=== PATIENT | female | born 1955 | race Caucasian/White ===

== ENCOUNTER → 2016-12-07 | Outpatient (CLI) | payer BC, OTHER ==
--- NOTE | 2016-12-07 22:20 | MR ---
EXAMINATION TYPE: MR lumbar spine wo con DATE OF EXAM: 12/07/2016 COMPARISON: NONE HISTORY: spondylolithesis lsp CONTRAST: 0 mL intravenous MultiHance. TECHNIQUE: Multiplanar, multisequence images of the lumbar spine were acquired. FINDINGS: There is diffuse disc desiccation throughout the lumbar spine. L5-S1: No significant disc bulge or disc herniation. No spinal canal stenosis. No foraminal stenosi s. L4-L5: No significant disc bulge or disc herniation. No spinal canal stenosis. No foraminal stenosi s. Previous annular tear signal is not identified within the posterior disc space... L3-L4: Minimal disc bulge with anterior thecal sac contact is present. No AP spinal canal stenosis pr esent. L2-L3: No significant disc bulge or disc herniation. No spinal canal stenosis. No foraminal stenosi s. . L1-L2: No significant disc bulge or disc herniation. No spinal canal stenosis. No foraminal stenosi s. . T12-L1: No significant disc bulge or disc herniation. No spinal canal stenosis. No foraminal stenos is. . IMPRESSION: 1. Very minimal disc bulge may remain present at L3-4. 2. Previous findings suggestive for an annular tear L4-5 are not evident on the current study. 3. The disc bulging at L3-4 is diminished over the interval.
== END | disposition home or self-care (01) ==
LOC: RADMRIMAIN 12:19
PROVIDERS: ATTEND Nurse Practitioner
DX: M51.26 Other intervertebral disc displacement, lumbar region (principal)
CPT/HCPCS: 72148

== ENCOUNTER → 2017-08-20 | Outpatient (CLI) | payer BC ==
--- NOTE | 2017-08-20 15:34 | US ---
EXAMINATION TYPE: US venous doppler duplex LE BI DATE OF EXAM: 08/20/2017 3:24 PM COMPARISON: NONE CLINICAL HISTORY: Edema R60, Dizziness R42. SIDE PERFORMED: Bilateral TECHNIQUE: The lower extremity deep venous system is examined utilizing real time linear array sonog eveline with graded compression, doppler sonography and color-flow sonography. VESSELS IMAGED: External Iliac Vein (EIV) Common Femoral Vein Deep Femoral Vein Greater Saphenous Vein * Femoral Vein Popliteal Vein Small Saphenous Vein * Proximal Calf Veins (* superficial vessels) large complex fluid collection left pop fossa measures 7.5 x 1.9 x 3.6 cm. Grayscale, color doppler, spectral doppler imaging performed of the deep veins of the lower extremiti es. There is normal flow, compressibility, vascular waveforms. Right Leg: Negative for DVT Left Leg: Negative for DVT IMPRESSION: No evidence for DVT.
--- NOTE | 2017-08-20 15:44 | US ---
EXAMINATION TYPE: US carotid duplex BILAT DATE OF EXAM: 08/20/2017 COMPARISON: US 2010 CLINICAL HISTORY: Edema R60, Dizziness R42. EXAM MEASUREMENTS: RIGHT: Peak Systolic Velocity (PSV) cm/sec ----- Right CCA: 55.5 ----- Right ICA: 54.5 ----- Right ECA: 77.2 ICA/CCA ratio: 1.0 RIGHT: End Diastole cm/sec ----- Right CCA: 21.4 ----- Right ICA: 23.3 ----- Right ECA: 13.8 LEFT: Peak Systolic Velocity (PSV) cm/sec ----- Left CCA: 60.2 ----- Left ICA: 96.8 ----- Left ECA: 123.0 ICA/CCA ratio: 1.6 LEFT: End Diastole cm/sec ----- Left CCA: 21.4 ----- Left ICA: 43.7 ----- Left ECA: 22.3 VERTEBRALS (direction of flow): Right Vertebral: Antegrade Left Vertebral: Antegrade Rhythm: Normal IMPRESSION: No significant stenosis seen, mild bilateral plaque. Criteria for Assigning % of Stenosis / Diameter reduction (Estimation based on the indirect measurements of the internal carotid artery velocities (ICA PSV). 1. Normal (no stenosis)=ICA PSV < 125 cm/s: ratio < 2.0: ICA EDV<40 cm/s. 2. Less than 50% stenosis=ICA PSV < 125 cm/s: ratio < 2.0: ICA EDV<40 cm/s. 3. 50 to 69% stenosis=ICA PSV of 125 to 230 cm/s: ration 2.0 ? 4.0: ICA EDV 40-100 cm/s. 4. Greater than 70% stenosis to near occlusion= ICA PSV > 230 cm/s: ratio > 4.0: ICA EDV > 100 cm/s. 5. Near occlusion= ICA PSV velocities may be low or undetectable: variable ratio and ICA EDV. 6. Total occlusion=unable to detect flow.
== END | disposition home or self-care (01) ==
LOC: RADUSWWP 14:23
PROVIDERS: ATTEND Family Medicine
DX: R60.0 Localized edema (principal); R42 Dizziness and giddiness
CPT/HCPCS: 93880; 93970

== ENCOUNTER → 2017-12-08 | Outpatient (CLI) | payer BC ==
--- NOTE | 2017-12-09 08:02 | MR ---
EXAMINATION TYPE: MR knee LT wo con DATE OF EXAM: 12/08/2017 COMPARISON: NONE HISTORY: Pain and swelling for 5 months. cyst behind knee TECHNIQUE: Multiplanar, multisequence images of the knee is performed without IV contrast. FINDINGS: MEDIAL MENISCUS: Anterior horn is intact without tear. Posterior horn as lobulated increased signal p articularly superior aspect with fraying and irregularity along superior articular surface consistent with full-thickness tear. Medial extrusion of meniscus noted on coronal images. LATERAL MENISCUS: Anterior and posterior horns are intact without tear. Some lateral uncovering is se en or lateral shifting of tibia relative to distal femur on coronal images. CRUCIATE LIGAMENTS: The anterior and posterior cruciate ligaments are intact. Increased signal diffus sergey throughout anterior cruciate ligament is present. COLLATERAL LIGAMENTS: The medial collateral ligament and lateral collateral ligament complex are inta ct. Moderate fluid signal surrounds medial collateral ligament.. EXTENSOR MECHANISM: Visualized quadriceps and patellar tendons are intact. EFFUSION: There is a large suprapatellar joint effusion. POPLITEAL CYST: There is a moderate size popliteal/joshi cyst with septations some thickened and surr ounding fluid measuring 5.1 cm long axis sagittal image 19. TRICOMPARTMENT SPACES: Moderate to advanced joint space loss medial tibiofemoral compartment is seen with mild spurring. There is mild to moderate joint space loss lateral tibiofemoral compartment. Ther e is moderate to advanced joint space loss patellofemoral compartment with minimal spurring. CARTILAGE: There is chondromalacia patella with thinning of articular cartilage inferiorly along the posterior patellar pole. No full-thickness loss is seen. There is marked thinning of articular cartil age medial tibiofemoral femoral compartment with full-thickness loss identified. BONE MARROW SIGNAL: Some heterogeneous increased T2 signal medial tibiofemoral compartment for refere nce distal femoral level axial images 15 and 16 is noted. Some erosive endplate changes are noted. OTHER: Increased fluid signal superficial anterior infrapatellar level is noted. . IMPRESSION: 1. Full-thickness tear posterior horn of medial meniscus. 2. Background moderate to advanced osteoarthritic changes most prominent patellofemoral and even grea ter degree medial tibiofemoral compartments where there is full-thickness cartilaginous loss is suspe cted reactive osseous edema. 3. Moderate MCL sprain injury. 4. Large suprapatellar joint effusion. 5. Moderate-sized leaking popliteal cyst. 6. Myxoid degeneration ACL.
== END | disposition home or self-care (01) ==
LOC: RADMRIMAIN 16:48
PROVIDERS: ATTEND Family Medicine
DX: S83.242A Other tear of medial meniscus, current injury, left knee, initial encounter (principal); M17.12 Unilateral primary osteoarthritis, left knee; S83.412A Sprain of medial collateral ligament of left knee, initial encounter; M71.22 Synovial cyst of popliteal space [Baker], left knee

== ENCOUNTER 2018-01-28 08:24 | Day surgery (SDC) | payer BC ==
[2018-01-24 11:26] VITALS: BMI 37.8
--- NOTE | 2018-01-27 10:26 | HP ---
HISTORY AND PHYSICAL CHIEF COMPLAINT: Left knee pain. HISTORY OF PRESENT ILLNESS: The patient is a 62-year-old female on disability, who presents with progressive left knee pain for the past 6 months. She notes anterior and medial pain along with swelling and giving way. She has been taking pain medications for this. She does use a wheeled walker and intermittently a cane. She notes it frequently gives out. PAST MEDICAL HISTORY: Significant for depression and anxiety disorder along with fibromyalgia, hypertension, and migraines. PAST SURGICAL HISTORY: Significant for hernia repair and hysterectomy. CURRENT MEDICATIONS: 1. Cymbalta. 2. Klonopin. 3. Lasix. 4. OxyContin. 5. Lipitor. 6. Percocet. 7. Remeron. ALLERGIES: She denies drug allergies. FAMILY HISTORY: Significant for heart disease and cancer. SOCIAL HISTORY: Significant for 1 pack per day tobacco use. REVIEW OF SYSTEMS: Sixteen-point review of systems otherwise reviewed and is noncontributory. PHYSICAL EXAMINATION: On examination, the patient is approximately 5 feet 4 inches, 226 pounds of endomorphic habitus. HEENT exam is nonfocal. Neck is supple. She has painless passive motion of her left hip. Straight leg raise is negative. Active motion left knee -10 to 80 degrees of flexion. She has a moderate effusion. She is tender about the medial joint line. Collaterals are stable, Tadeo's negative, Sarah's elicits medial pain. She has genu varum alignment. Her distal neurovascular exam appears intact in the left lower extremity. MRI report left knee 12/08/2017 shows a posterior medial meniscal tear along with a large effusion and a large Brown's cyst. IMPRESSION: 1. Left knee internal derangement with symptomatic medial meniscal tear. 2. Left knee moderate medial and patellofemoral compartment osteoarthrosis. 3. Increased body mass index. 4. History of fibromyalgia. RECOMMENDATIONS: I talked to the patient at length regarding her condition and treatment options. At this point, she is quite symptomatic, having pain and mechanical symptoms despite conservative measures. After thorough discussion, she opts to proceed with surgery. We will plan to proceed with arthroscopic evaluation with probable partial medial meniscectomy. Risks and benefits were discussed at length in layman's terms. We will likely perform that as an outpatient procedure. MMODL / IJN: [id number] /
[~2018-01-28 08:24] MED LIST: DEXAMETHASONE SOD PHOSPHATE 10 MG/ML 1 ML VIAL IV ONE; LACTATED RINGERS 1,000 ML IV SCH; LIDOCAINE 1% 20 ML VIAL (10MG/ML) FOR IV START INTRADERMA PRN; ONDANSETRON 4 MG/2 ML VIAL IVP PRN; SCOPOLAMINE 1.5MG/72HR PATCH TRANSDERM ONE; ceFAZolin IN SWFI 2 GM/20 ML SYRINGE IVP ONE
[2018-01-28] MEDS ORDERED: MIDAZOLAM 2 MG/2 ML VIAL IVP ONE (09:23)
[2018-01-28] MEDS ORDERED: NALOXONE 0.4 MG/ML 1 ML VIAL ONE (10:00)
[2018-01-28] MEDS ORDERED: PROPOFOL 10 MG/ML 20 ML VIAL IV ONE (10:00)
[2018-01-28] MEDS ORDERED: fentaNYL (PF) 50 MCG/ML 2 ML AMP ONE (10:00)
[2018-01-28] MEDS ORDERED: MIDAZOLAM 2 MG/2 ML VIAL ONE (10:00)
[2018-01-28] MEDS ORDERED: SUCCINYLCHOLINE CHLORIDE 100 MG/5 ML SYR IV ONE (10:00)
[2018-01-28] MEDS ORDERED: LIDOCAINE 1% INJ 10MG/ML (20 ML MDV) ONE (10:00)
[2018-01-28] MEDS ORDERED: KETAMINE 10 MG/ML 20 ML VIAL ONE (10:00)
--- NOTE | 2018-01-28 11:01 | P.OP ---
Date of Procedure: 01/28/18 Preoperative Diagnosis: Left knee internal derangement Postoperative Diagnosis: Left knee middle and posterior medial meniscal tear/middle one third lateral meniscal tear/reactive synovitis of the medial, lateral, and patellofemoral compartments/grade 23 chondral injury distal lateral femoral condyle Procedure(s) Performed: Left knee arthroscopic partial medial meniscectomy/partial lateral meniscectomy/ partial synovectomy of the medial, lateral, and patellofemoral compartments/ lateral femoral chondrectomy Anesthesia: GETA Surgeon: Casey Parikh Estimated Blood Loss (ml): 10 Pathology: none sent Condition: stable Disposition: PACU Indications for Procedure: The patient is a 62-year-old female who presents with progressive left knee pain and mechanical symptoms despite conservative measures. A discussion of the risks and benefits of operative intervention versus continued conservative measures was made with the patient. She opted to proceed with surgery. Operative risks to include infection, neurovascular injury, development of blood clots, possible incomplete resolution of symptoms, possible worsening of symptoms and need for subsequent procedures was discussed. Informed consent was obtained. Operative Findings: As below Description of Procedure: The patient was brought to the operating room, and after induction of general anesthesia, I examined the left knee. Collaterals were stable, Tadeo was negative, and posterior drawer was negative. The left lower extremity was prepped and draped in normal fashion. A superior lateral portal was made through a 3 mm skin incision superior and lateral to the patella. This was used for outflow. A lateral portal was made through a 5 mm vertical skin incision lateral to the patella tendon above the joint. Diagnostic arthroscopy was performed. A medial portal was made through a similar incision medial to the patellar tendon above the joint. On inspection of the medial compartment, she was noted to have a complex tear involving the middle to posterior one third of the medial meniscus in the white-red junction. This was debrided back to stable base with a motorized shaver and straight baskets. The edges were contoured. Grade 2-3 chondral changes noted diffusely in the medial compartment. Reactive synovitis involving anterior medial, anterolateral, patellofemoral compartments was debrided with a motorized shaver. On inspection of the notch, the anterior cruciate ligament appeared to be intact. On inspection the lateral compartment, a horizontal tear involving the middle one third of the lateral meniscus in the white-white junction. This was debrided back to stable base with straight baskets and a motorized shaver. A grade 2 chondral injury was noted involving the central distal portion of the femoral femoral condyle. There was a loose chondral flap debrided back to stable base with a motorized shaver. On inspection of the patellofemoral articulation, there is mild degenerative changes however no loose cartilage fragments. The gutters were clear debris. The knee was then thoroughly irrigated. The portals were closed with Steri-Strips. A sterile dressing was applied in addition to a compression stocking. Patient was awoken from general anesthesia and transferred to recovery room in good condition. Blood loss was estimated at 10 mL. No complications were incurred.
[2018-01-28 11:24] VITALS: TEMP 97
[2018-01-28] MEDS: HYDROmorphone 0.5 MG/0.5 ML SYRINGE IVP PRN ×4 (11:28→11:43)
[2018-01-28] MEDS ORDERED: oxyCODONE ER 20 MG TAB.ER.12H PO STA (12:23)
[2018-01-28 13:27] VITALS: BP 179/84; PULSE 80; RESP 17
== END 2018-01-28 13:36 | disposition home or self-care (01) ==
LOC: OR 08:24
PROVIDERS: ATTEND Orthopaedic Surgery
DX: M23.322 Other meniscus derangements, posterior horn of medial meniscus, left knee (principal); M23.301 Other meniscus derangements, unspecified lateral meniscus, left knee; M65.862 Other synovitis and tenosynovitis, left lower leg; F32.9 Major depressive disorder, single episode, unspecified; F41.9 Anxiety disorder, unspecified; M79.7 Fibromyalgia; I10 Essential (primary) hypertension; G43.909 Migraine, unspecified, not intractable, without status migrainosus; Z79.899 Other long term (current) drug therapy; Z86.73 Personal history of transient ischemic attack (TIA), and cerebral infarction without residual deficits; F17.210 Nicotine dependence, cigarettes, uncomplicated; M17.12 Unilateral primary osteoarthritis, left knee; Z90.710 Acquired absence of both cervix and uterus
CPT/HCPCS: 29880; J2250; J1100; J2310; J2405; J2001; J3010; J0330; J2704; J1170; J0690

== ENCOUNTER 2019-05-21 15:40 | Emergency (ER) | payer BC ==
[2019-05-21] MEDS ORDERED: NITROGLYCERIN SL TABS 0.4 MG TAB SUBLINGUAL STA (15:53)
[2019-05-21] MEDS ORDERED: HYDROmorphone 1 MG/ML 1 ML SYRINGE IVP STA (15:57)
[2019-05-21 15:58] VITALS: PULSE 105; RESP 18; TEMP 98.2
--- NOTE | 2019-05-21 16:01 | ED ---
Chest Pain HPI - General Chief Complaint: Chest Pain Stated Complaint: Chest Pressure Time Seen by Provider: 05/21/19 15:40 Source: patient, EMS, RN notes reviewed Mode of arrival: EMS Limitations: no limitations - History of Present Illness Initial Comments: This is a 63-year-old female history chronic pain syndrome who also is a smoker with COPD also history of fibromyalgia who presents with complaints of chest pain and hypertension. She was brought in by EMS because the pain midsternal and left-sided pressure-like moderate in severity. She believes part of this is secondary to withdrawal from her opiates. She is normally on OxyContin 40 mg 3 times a day with Percocet 10 mg 3 times a day for breakthrough she has not had her prescription she did take a fentanyl patch to was apparently that she had obtained it did not help. She's noted be hypertensive per paramedics. She's had nausea diarrhea agitation she states. MD Complaint: chest pain - Related Data Home Medications Medication Instructions Recorded Confirmed DULoxetine HCL [Cymbalta] 120 mg PO DAILY 01/15/15 01/28/18 Furosemide [Lasix] 40 mg PO DAILY PRN 01/15/15 01/28/18 Mirtazapine [Remeron] 45 mg PO HS 01/15/15 01/28/18 Atorvastatin [Lipitor] 10 mg PO DAILY 01/24/18 01/28/18 clonazePAM [KlonoPIN] 1 mg PO TID 01/24/18 01/28/18 oxyCODONE HCL [OxyCONTIN] 40 mg PO TID 01/24/18 01/28/18 oxyCODONE-APAP 10-325MG [Percocet 1 tab PO BID 01/24/18 01/28/18 10-325 mg] Allergies Allergy/AdvReac Type Severity Reaction Status Date / Time No Known Allergies Allergy Verified 05/21/19 15:49 Review of Systems ROS Statement: Those systems with pertinent positive or pertinent negative responses have been documented in the HPI. ROS Other: All systems not noted in ROS Statement are negative. EKG Findings - EKG Results: EKG: interpreted by SEBASTIAN, sinus rhythm (Sinus rhythm rate of 98. Interval 184 QRS duration 104 QT since QTC 386/[address] configuration prolonged QT noted.) Past Medical History Past Medical History: CVA/TIA, Fibromyalgia, Hyperlipidemia, Hypertension, Memory Impairment, Osteoarthritis (OA) Additional Past Medical History / Comment(s): chronic neck and back pain, ddd, ARTHRITIS, USES CANE NEEDED FOR FIBROMYALGIA History of Any Multi-Drug Resistant Organisms: None Reported Past Surgical History: Hernia Repair, Hysterectomy Additional Past Surgical History / Comment(s): cervical fusion, Past Anesthesia/Blood Transfusion Reactions: No Reported Reaction Past Psychological History: Anxiety, Depression, Panic Disorder Smoking Status: Current every day smoker Past Alcohol Use History: None Reported Past Drug Use History: None Reported - Past Family History Mother Family Medical History: Cancer General Exam - General Exam Comments Initial Comments: This is a well-developed well-nourished awake alert oriented 3 female Limitations: no limitations General appearance: alert, anxious Head exam: Present: atraumatic, normocephalic, normal inspection Eye exam: Present: normal appearance, PERRL, EOMI. Absent: scleral icterus, conjunctival injection, periorbital swelling ENT exam: Present: normal exam, mucous membranes moist Neck exam: Present: normal inspection, full ROM, other. Absent: tenderness, meningismus, lymphadenopathy Respiratory exam: Present: normal lung sounds bilaterally, chest wall tenderness (Tenderness palpation in the is equivocal as far as reproducible). Absent: respiratory distress, wheezes, rales, rhonchi, stridor Cardiovascular Exam: Present: normal rhythm, tachycardia, normal heart sounds. Absent: systolic murmur, diastolic murmur, rubs, gallop, clicks GI/Abdominal exam: Present: soft, normal bowel sounds. Absent: distended, tenderness, guarding, rebound, rigid Extremities exam: Present: normal inspection, full ROM, normal capillary refill. Absent: tenderness, pedal edema, joint swelling, calf tenderness Back exam: Present: normal inspection Neurological exam: Present: alert, oriented X3, CN II-XII intact Psychiatric exam: Present: normal affect, normal mood Skin exam: Present: warm, dry, intact, normal color. Absent: rash Course Vital Signs 05/21/19 05/21/19 15:49 16:31 Temperature 98.2 F Pulse Rate 105 H Respiratory 18 Rate Blood Pressure 198/142 204/142 O2 Sat by Pulse 99 Oximetry Chest Pain MDM - MDM Did review the imaging and report no acute findings. I did have one discussed with the patient the presentation is noncardiac in is secondary to muscle scalp pain and withdrawal from her narcotics. She will get a additional shot of medication she is a follow-up tomorrow she may be able get her medications tomorrow. She is in agreement with this Disposition Clinical Impression: Chest wall syndrome, Narcotic withdrawal, Chronic pain syndrome Disposition: HOME SELF-CARE Condition: Good Instructions (If sedation given, give patient instructions): Chest Wall Pain (ED) Is patient prescribed a controlled substance at d/c from ED?: No Referrals: Nonstaff,Physician [REFERRING] - 1-2 days
[2019-05-21 16:32] VITALS: BP 204/142
[2019-05-21 16:37] LABS: Basophils # (A) 0.1 k/uL (0-0.2); Basophils % (A) 1 %; Eosinophils # (A) 0.1 k/uL (0-0.7); Eosinophils % (A) 1 %; HCT 49.7 % (34.0-46.0); HGB 16.2 gm/dL (11.4-16.0); Lymphocytes # (A) 1.6 k/uL (1.0-4.8); Lymphocytes % (A) 17 %; MCH 29.3 pg (25.0-35.0); MCHC 32.6 g/dL (31.0-37.0); MCV 89.8 fL (80.0-100.0); Mean Platelet Volume 9.1; Monocytes # (A) 0.5 k/uL (0-1.0); Monocytes % (A) 5 %; Neutrophils # (A) 7.1 k/uL (1.3-7.7); Neutrophils % (A) 75 %; Platelet Count 276 k/uL (150-450); RBC 5.54 m/uL (3.80-5.40); RDW 13.5 % (11.5-15.5); WBC 9.5 k/uL (3.8-10.6)
[2019-05-21 16:44] LABS: ALT 21 U/L (4-34); AST 33 U/L (14-36); African American GFR (CKD) >90 (>60 ml/min/1.73 sqM); Albumin 4.1 g/dL (3.5-5.0); Alkaline Phosphatase 151 U/L (38-126); Anion Gap 7 mmol/L; Blood Urea Nitrogen 12 mg/dL (7-17); Calcium 9.3 mg/dL (8.4-10.2); Carbon Dioxide 24 mmol/L (22-30); Chloride 108 mmol/L (98-107); Glucose 104 mg/dL (74-99); Magnesium 2.1 mg/dL (1.6-2.3); Non-African American GFR(CKD) >90 (>60 ml/min/1.73 sqM); Sodium 139 mmol/L (137-145); Total Bilirubin 0.9 mg/dL (0.2-1.3); Total Protein 7.3 g/dL (6.3-8.2)
[2019-05-21 16:45] LABS: Potassium 4.9 mmol/L (3.5-5.1)
--- NOTE | 2019-05-21 16:47 | XR ---
EXAMINATION TYPE: XR chest 2V DATE OF EXAM: 05/21/2019 COMPARISON: 06/20/2012 HISTORY: Chest pain and dizziness TECHNIQUE: Frontal and lateral views of the chest are obtained. FINDINGS: There is no focal air space opacity, pleural effusion, or pneumothorax seen. Chronic inte rstitial prominence is unchanged. The cardiac silhouette size is mildly enlarged. The osseous struc tures are intact. Minimal degenerative change of the spine. Mild diffuse osseous demineralization. Ol d fracture deformity of the right lateral mid ribs. IMPRESSION: No acute cardiopulmonary process.
[2019-05-21 16:57] LABS: Partial Thromboplastin Time 22.6 sec (22.0-30.0)
[2019-05-21] MEDS ORDERED: HYDROmorphone 1 MG/ML 1 ML SYRINGE IM STA (17:24)
== END 2019-05-21 18:09 | disposition home or self-care (01) ==
LOC: EC 15:40
DX: F11.23 Opioid dependence with withdrawal (principal); G89.4 Chronic pain syndrome; R07.1 Chest pain on breathing; R00.0 Tachycardia, unspecified; M79.7 Fibromyalgia; E78.5 Hyperlipidemia, unspecified; I10 Essential (primary) hypertension; M19.90 Unspecified osteoarthritis, unspecified site; F32.9 Major depressive disorder, single episode, unspecified; F41.9 Anxiety disorder, unspecified; F17.200 Nicotine dependence, unspecified, uncomplicated; Z79.899 Other long term (current) drug therapy; Z98.1 Arthrodesis status
CPT/HCPCS: 36415; 93005; 83880; 80053; 83690; 83735; 84484; 85025; 85610; 85730; 71046; 99285; 96374; 96372; J1170

== ENCOUNTER → 2019-06-27 | Outpatient (CLI) | payer BC ==
--- NOTE | 2019-06-27 10:01 | US ---
EXAMINATION TYPE: US carotid duplex BILAT DATE OF EXAM: 06/27/2019 COMPARISON: US 08/20/2017 CLINICAL HISTORY: R94.31 abn EKG, Chest pain R07.9, R42 dizziness. Smoker x 47 years, prior TIA EXAM MEASUREMENTS: RIGHT: Peak Systolic Velocity (PSV) cm/sec ----- Right CCA: 67.7 ----- Right ICA: 68.7 ----- Right ECA: 101.8 ICA/CCA ratio: 1.0 RIGHT: End Diastole cm/sec ----- Right CCA: 23.5 ----- Right ICA: 34.6 ----- Right ECA: 12.1 LEFT: Peak Systolic Velocity (PSV) cm/sec ----- Left CCA: 74.4 ----- Left ICA: 104.7 ----- Left ECA: 117.0 ICA/CCA ratio: 1.4 LEFT: End Diastole cm/sec ----- Left CCA: 21.3 ----- Left ICA: 44.1 ----- Left ECA: 28.5 VERTEBRALS (direction of flow): Right Vertebral: Antegrade Left Vertebral: Antegrade and dominant vertebral artery Rhythm: Normal Mild intimal wall changes are noted at bilateral carotid bifurcation, and PSV is wnl bilaterally. Incidental finding of bilateral thyroid nodules is noted. Grayscale, color Doppler, spectral Doppler imaging performed of the carotid arteries. Waveform analys is does not show significant stenosis of the internal carotid arteries. IMPRESSION: No hemodynamic significant stenosis of the proximal internal carotid arteries by Doppler criteria, an indirect measurement of carotid stenosis
== END | disposition home or self-care (01) ==
LOC: RADUSMAIN 07:34
PROVIDERS: ATTEND Family Medicine
DX: R07.89 Other chest pain (principal)
CPT/HCPCS: 93880

== ENCOUNTER → 2019-10-17 | Outpatient (CLI) | payer BC ==
--- NOTE | 2019-10-18 15:31 | ECHOF ---
Referral Reason:Edema R60.0 MEASUREMENTS -------- HEIGHT: 162.6 cm WEIGHT: 97.5 kg BP: RVIDd: 3.7 cm (< 3.3) IVSd: 1.7 cm (0.6 - 1.1) LVIDd: 4.6 cm (3.9 - 5.3) LVPWd: 1.5 cm (0.6 - 1.1) IVSs: 1.7 cm LVIDs: 4.3 cm LVPWs: 1.6 cm LA Diam: 4.1 cm (2.7 - 3.8) Ao Diam: 3.4 cm (2.0 - 3.7) AV Cusp: 2.0 cm (1.5 - 2.6) LA Diam: 4.5 cm (2.7 - 3.8) MV EXCURSION: 12.148 mm (> 18.000) MV EF SLOPE: 49 mm/s (70 - 150) EPSS: 0.2 cm MV E Duane: 0.80 m/s MV DecT: 119 ms MV A Duane: 1.08 m/s MV E/A Ratio: 0.74 RAP: 5.00 mmHg RVSP: 11.33 mmHg FINDINGS -------- Sinus rhythm. This was a technically adequate study. The left ventricular size is normal. Overall left ventricular systolic function is normal with, an EF between 55 - 60 %. Moderate asymmetric septal hypertrophy with septal thickness 1.6 - 1.9 cm. The right ventricle is normal in size. The left atrium is mildly dilated. The right atrial size is normal. The aortic valve is trileaflet, and appears structurally normal. No aortic stenosis or regurgitation. Mild mitral regurgitation is present. Mild tricuspid regurgitation present. Right ventricular systolic pressure is normal at < 35 mmHg. The pulmonic valve was not well visualized. The aortic root size is normal. There is no pericardial effusion. CONCLUSIONS -------- 1. Sinus rhythm. 2. This was a technically adequate study. 3. The left ventricular size is normal. 4. Overall left ventricular systolic function is normal with, an EF between 55 - 60 %. 5. Moderate asymmetric septal hypertrophy with septal thickness 1.6 - 1.9 cm. 6. The right ventricle is normal in size. 7. The left atrium is mildly dilated. 8. The right atrial size is normal. 9. The aortic valve is trileaflet, and appears structurally normal. No aortic stenosis or regurgitati on. 10. Mild mitral regurgitation is present. 11. Mild tricuspid regurgitation present. 12. Right ventricular systolic pressure is normal at < 35 mmHg. 13. The pulmonic valve was not well visualized. 14. The aortic root size is normal. 15. There is no pericardial effusion. ENGINEER SYSTEMS: Riya Chin RDCS
== END | disposition home or self-care (01) ==
LOC: MERGE 15:00 → RADECHMAIN 15:16
PROVIDERS: ATTEND Family Medicine
DX: I08.1 Rheumatic disorders of both mitral and tricuspid valves (principal)
CPT/HCPCS: 93306

== ENCOUNTER 2023-01-28 14:11 | Inpatient (IN) | payer MEDICARE, OTHER ==
--- NOTE | 2023-01-28 15:36 | ED ---
General Adult HPI - General Chief complaint: Weakness Stated complaint: alter mental status Time Seen by Provider: 01/28/23 15:06 Source: patient, family, EMS, RN notes reviewed Mode of arrival: EMS Limitations: no limitations - History of Present Illness Initial comments: Patient is a pleasant 67-year-old female presenting to the emergency department with drowsiness. Onset of symptoms was last night. Patient slipped in the morning. did try to get patient up around noon however patient was unable to bear her own weight. Patient has been very sleepy, a little bit confused. Patient cannot offer specific complaints. states patient does have history of similar symptoms previously once associated with congestive heart failure. Patient has been becoming more edematous the last few days. - Related Data Home Medications Medication Instructions Recorded Confirmed DULoxetine HCL [Cymbalta] 120 mg PO DAILY 01/15/15 01/28/23 Mirtazapine [Remeron] 45 mg PO HS 01/15/15 01/28/23 clonazePAM [KlonoPIN] 1 mg PO BID 01/24/18 01/28/23 oxyCODONE-APAP 10-325MG [Percocet 1 tab PO BID 01/24/18 01/28/23 10-325 mg] Amiodarone [Cordarone] 200 mg PO DAILY 01/28/23 01/28/23 Apixaban [Eliquis] 5 mg PO BID 01/28/23 01/28/23 Cyclobenzaprine [Flexeril] 5 mg PO BID PRN 01/28/23 01/28/23 Famotidine [Pepcid] 20 mg PO BID 01/28/23 01/28/23 Metoprolol Succinate (ER) [Toprol 50 mg PO DAILY 01/28/23 01/28/23 Xl] Morphine Sulfate ER [Ms Contin] 30 mg PO Q12HR 01/28/23 01/28/23 Potassium Chloride ER [K-Dur 20] 20 meq PO DAILY 01/28/23 01/28/23 Spironolactone [Aldactone] 25 mg PO DAILY 01/28/23 01/28/23 Suvorexant [Belsomra] 20 mg PO HS 01/28/23 01/28/23 Torsemide [Demadex] 40 mg PO BID 01/28/23 01/28/23 dilTIAZem HCL [dilTIAZem HCL 24Hr 120 mg PO DAILY 01/28/23 01/28/23 ER (Xr)] Allergies Allergy/AdvReac Type Severity Reaction Status Date / Time No Known Allergies Allergy Verified 01/28/23 14:43 Review of Systems ROS Statement: Those systems with pertinent positive or pertinent negative responses have been documented in the HPI. ROS Other: All systems not noted in ROS Statement are negative. Constitutional: Denies: fever Eyes: Denies: eye pain ENT: Denies: ear pain Respiratory: Reports: as per HPI, dyspnea Cardiovascular: Denies: chest pain Endocrine: Reports: fatigue Neurological: Reports: as per HPI. Denies: headache Past Medical History Past Medical History: CVA/TIA, Fibromyalgia, Hyperlipidemia, Hypertension, Memory Impairment, Osteoarthritis (OA) Additional Past Medical History / Comment(s): chronic neck and back pain, ddd, ARTHRITIS, USES CANE NEEDED FOR FIBROMYALGIA History of Any Multi-Drug Resistant Organisms: None Reported Past Surgical History: Hernia Repair, Hysterectomy Additional Past Surgical History / Comment(s): cervical fusion, Past Anesthesia/Blood Transfusion Reactions: No Reported Reaction Past Psychological History: Anxiety, Depression, Panic Disorder Smoking Status: Current every day smoker Past Alcohol Use History: None Reported Past Drug Use History: None Reported - Past Family History Mother Family Medical History: Cancer General Exam Limitations: no limitations General appearance: lethargic Head exam: Present: atraumatic Eye exam: Present: normal appearance, PERRL, EOMI ENT exam: Present: normal oropharynx Neck exam: Present: normal inspection. Absent: meningismus Respiratory exam: Present: normal lung sounds bilaterally Cardiovascular Exam: Present: regular rate GI/Abdominal exam: Present: soft. Absent: tenderness Extremities exam: Present: pedal edema. Absent: calf tenderness Neurological exam: Present: CN II-XII intact, other (Drowsy but arousable to voice.). Absent: motor sensory deficit Expanded Cranial nerves: EOM's Intact: Normal Motor strength exam: RUE: 5, LUE: 5, RLE: 5, LLE: 5 Eye Response: (3) open to voice Motor Response: (6) obeys commands Verbal Response: (4) confused conversation Psychiatric exam: Present: flat affect Skin exam: Present: normal color Course Vital Signs 01/28/23 01/28/23 01/28/23 14:17 16:07 16:29 Temperature 97.8 F Pulse Rate 104 H Respiratory 18 Rate Blood Pressure 108/91 O2 Sat by Pulse 91 L 89 L Oximetry Fraction of 28 Inspired Oxygen (FIO2) 01/28/23 01/28/23 01/28/23 16:30 17:19 17:34 Temperature Pulse Rate 82 Respiratory 24 Rate Blood Pressure O2 Sat by Pulse 90 L Oximetry Fraction of 28 32 Inspired Oxygen (FIO2) EKG Findings - EKG Results: EKG: interpreted by ERMD (Right axis. Right bundle branch block. Inferior T wave inversion.) EKG shows: atrial fibrillation Procedures - ABG Interpretation Ph: 7.11 PCO2: 84.9 PO2: 55 Bicarbonate: 27 Interpretation: respiratory acidosis Medical Decision Making - Medical Decision Making Was pt. sent in by a medical professional or institution (, PA, SURGICAL APPLIANCES SALESPERSON, urgent care, hospital, or fci...) When possible be specific @ -No Did you speak to anyone other than the patient for history (EMS, parent, family, police, friend...)? What history was obtained from this source @ - is present and provides history as patient is a poor historian Did you review nursing and triage notes (agree or disagree)? Why? @ -I reviewed and agree with nursing and triage notes Were old charts reviewed (outside hosp., previous admission, EMS record, old EKG, old radiological studies, urgent care reports/EKG's, fci records)? Report findings @ -No old charts were reviewed Differential Diagnosis (chest pain, altered mental status, abdominal pain women, abdominal pain men, vaginal bleeding, weakness, fever, dyspnea, syncope, headache, dizziness, GI bleed, back pain, seizure, CVA, palpatations, mental health, musculoskeletal)? @ -Differential Altered Mental Status: Hypoglycemia, DKA, hypercapnia, ETOH, overdose, CO poisoning, trauma, myxedema coma, HTN encephalopathy, infection, encephalitis, psychosis, intercranial hemorrhage, hepatic encephalopathy, meningitis, CVA, this is not meant to be an all-inclusive list EKG interpreted by me (3pts min.). @ -As above X-rays interpreted by me (1pt min.). @ -Chest x-ray shows cardiomegaly CT interpreted by me (1pt min.). @ -Report reviewed U/S interpreted by me (1pt. min.). @ -None done What testing was considered but not performed or refused? (CT, X-rays, U/S, labs)? Why? @ -None What meds were considered but not given or refused? Why? @ -None Did you discuss the management of the patient with other professionals (professionals i.e. , PA, SURGICAL APPLIANCES SALESPERSON, lab, RT, psych nurse, social work supervisor, clothing busheler, teacher, adult probation officer, assistant case manager)? Give summary @ -Case was discussed with Dr. Tovar, who will admit covering Dr. Garvey Was smoking cessation discussed for >3mins.? @ -No Was critical care preformed (if so, how long)? @ -35 minutes critical care time Were there social determinants of health that impacted care today? How? (Homelessness, low income, unemployed, alcoholism, drug addiction, transportation, low edu. Level, literacy, decrease access to med. care, [facility], rehab)? @ -No Was there de-escalation of care discussed even if they declined (Discuss DNR or withdrawal of care, Hospice)? DNR status @ -No What co-morbidities impacted this encounter? (DM, HTN, Smoking, COPD, CAD, Can cer, CVA, ARF, Chemo, Hep., AIDS, mental health diagnosis, sleep apnea, morbid obesity)? @ -None Was patient admitted / discharged? Hospital course, mention meds given and route, prescriptions, significant lab abnormalities, going to OR and other pertinent info. @ -Patient had BiPAP placed with significant improvement. Patient is now alert and speaking 5-6 word sentences. Patient is updated on results. Patient will be admitted with consults for pulmonary as well as cardiology and nephrology. Patient will also benefit from echo. Admission orders written. Undiagnosed new problem with uncertain prognosis? @ -No Drug Therapy requiring intensive monitoring for toxicity (Heparin, Nitro, Insulin, Cardizem)? @ -No Were any procedures done? @ -No Diagnosis/symptom? @ -Hypercarbia, acute kidney injury, CHF Acute, or Chronic, or Acute on Chronic? @ -Acute, acute, acute Uncomplicated (without systemic symptoms) or Complicated (systemic symptoms)? @ -Care with mental status changes Side effects of treatment? @ -No Exacerbation, Progression, or Severe Exacerbation? @ -No Poses a threat to life or bodily function? How? (Chest pain, [place], NM, pneumonia, PE, COPD, DKA, ARF, appy, cholecystitis, CVA, Diverticulitis, Homicidal, Suicidal, threat to staff... and all critical care pts) @ -Threat to life and bodily function with hypoxia and mental status change - Lab Data Result diagrams: 01/28/23 15:39 01/28/23 15:39 Lab Results 01/28/23 01/28/23 01/28/23 Range/Units 15:39 15:39 15:39 WBC 22.5 H (3.8-10.6) k/uL RBC 4.13 (3.80-5.40) m/uL Hgb 8.6 L (11.4-16.0) gm/dL Hct 32.4 L (34.0-46.0) % MCV 78.4 L (80.0-100.0) fL MCH 20.8 L (25.0-35.0) pg MCHC 26.5 L (31.0-37.0) g/dL RDW 18.5 H (11.5-15.5) % Plt Count 681 H (150-450) k/uL MPV 8.3 Neutrophils % (Manual) 90 % Band Neuts % (Manual) 1 % Lymphocytes % (Manual) 4 % Monocytes % (Manual) 7 % Neutrophils # (Manual) 20.40 H (1.3-7.7) k/uL Lymphocytes # (Manual) 0.90 L (1.0-4.8) k/uL Monocytes # (Manual) 1.58 H (0-1.0) k/uL Nucleated RBCs 2 H (0-0) /100 WBC Differential Comment Manual Slide Review Performed Polychromasia Present Hypochromasia Marked Poikilocytosis Slight Anisocytosis Slight Microcytosis Slight PT 15.6 H (9.0-12.0) sec INR 1.6 H (<1.2) APTT 25.6 (22.0-30.0) sec Sample Site ABG pH (7.35-7.45) ABG pCO2 (35-45) mmHg ABG pO2 (83-108) mmHg ABG HCO3 (21-25) mmol/L ABG Total CO2 (19-24) mmol/L ABG O2 Saturation (94-97) % ABG Base Excess mmol/L Prateek Test FiO2 % Sodium (137-145) mmol/L Potassium (3.5-5.1) mmol/L Chloride (98-107) mmol/L Carbon Dioxide (22-30) mmol/L Anion Gap mmol/L BUN (7-17) mg/dL Creatinine (0.52-1.04) mg/dL Est GFR (CKD-EPI)AfAm (>60 ml/min/1.73 sqM) Est GFR (CKD-EPI)NonAf (>60 ml/min/1.73 sqM) Glucose (74-99) mg/dL POC Glucose (mg/dL) (70-110) mg/dL POC Glu Produce Laborer ID Calcium (8.4-10.2) mg/dL Total Bilirubin (0.2-1.3) mg/dL Alkaline Phosphatase (38-126) U/L Troponin I (0.000-0.034) ng/mL NT-Pro-B Natriuret Pep pg/mL Total Protein (6.3-8.2) g/dL Albumin (3.5-5.0) g/dL Urine Color Light Yellow Urine Appearance Clear (Clear) Urine pH 5.0 (5.0-8.0) Ur Specific [place] 1.011 (1.001-1.035) Urine Protein Negative (Negative) Urine Glucose (UA) Negative (Negative) Urine Ketones Negative (Negative) Urine Blood Negative (Negative) Urine Nitrite Negative (Negative) Urine Bilirubin Negative (Negative) Urine Urobilinogen <2.0 (<2.0) mg/dL Ur Leukocyte Esterase Negative (Negative) Urine Opiates Screen Detected H (NotDetected) Ur Oxycodone Screen Detected H (NotDetected) Urine Methadone Screen Not Detected (NotDetected) Ur Propoxyphene Screen Not Detected (NotDetected) Ur Barbiturates Screen Not Detected (NotDetected) U Tricyclic Antidepress Detected H (NotDetected) Ur Phencyclidine Scrn Not Detected (NotDetected) Ur Amphetamines Screen Not Detected (NotDetected) U Methamphetamines Scrn Not Detected (NotDetected) U Benzodiazepines Scrn Not Detected (NotDetected) Urine Cocaine Screen Not Detected (NotDetected) U Marijuana (THC) Screen Not Detected (NotDetected) Serum Alcohol mg/dL 1001/28/23 01/28/23 Range/Units 15:39 15:39 16:00 WBC (3.8-10.6) k/uL RBC (3.80-5.40) m/uL Hgb (11.4-16.0) gm/dL Hct (34.0-46.0) % MCV (80.0-100.0) fL MCH (25.0-35.0) pg MCHC (31.0-37.0) g/dL RDW (11.5-15.5) % Plt Count (150-450) k/uL MPV Neutrophils % (Manual) % Band Neuts % (Manual) % Lymphocytes % (Manual) % Monocytes % (Manual) % Neutrophils # (Manual) (1.3-7.7) k/uL Lymphocytes # (Manual) (1.0-4.8) k/uL Monocytes # (Manual) (0-1.0) k/uL Nucleated RBCs (0-0) /100 WBC Differential Comment Manual Slide Review Polychromasia Hypochromasia Poikilocytosis Anisocytosis Microcytosis PT (9.0-12.0) sec INR (<1.2) APTT (22.0-30.0) sec Sample Site Left Radial ABG pH 7.05 L* (7.35-7.45) ABG pCO2 100 H* (35-45) mmHg ABG pO2 38 L* (83-108) mmHg ABG HCO3 27 H (21-25) mmol/L ABG Total CO2 30 H (19-24) mmol/L ABG O2 Saturation 49.8 L (94-97) % ABG Base Excess -3.3 mmol/L Prateek Test Yes FiO2 36 % Sodium 132 L (137-145) mmol/L Potassium 6.0 H (3.5-5.1) mmol/L Chloride 88 L (98-107) mmol/L Carbon Dioxide 24 (22-30) mmol/L Anion Gap 20 mmol/L BUN 62 H (7-17) mg/dL Creatinine 3.65 H (0.52-1.04) mg/dL Est GFR (CKD-EPI)AfAm 14 (>60 ml/min/1.73 sqM) Est GFR (CKD-EPI)NonAf 12 (>60 ml/min/1.73 sqM) Glucose 108 H (74-99) mg/dL POC Glucose (mg/dL) (70-110) mg/dL POC Glu Produce Laborer ID Calcium 8.0 L (8.4-10.2) mg/dL Total Bilirubin 1.1 (0.2-1.3) mg/dL Alkaline Phosphatase 103 (38-126) U/L Troponin I 0.073 H* (0.000-0.034) ng/mL NT-Pro-B Natriuret Pep 62974 pg/mL Total Protein 6.8 (6.3-8.2) g/dL Albumin 4.2 (3.5-5.0) g/dL Urine Color Urine Appearance (Clear) Urine pH (5.0-8.0) Ur Specific [place] (1.001-1.035) Urine Protein (Negative) Urine Glucose (UA) (Negative) Urine Ketones (Negative) Urine Blood (Negative) Urine Nitrite (Negative) Urine Bilirubin (Negative) Urine Urobilinogen (<2.0) mg/dL Ur Leukocyte Esterase (Negative) Urine Opiates Screen (NotDetected) Ur Oxycodone Screen (NotDetected) Urine Methadone Screen (NotDetected) Ur Propoxyphene Screen (NotDetected) Ur Barbiturates Screen (NotDetected) U Tricyclic Antidepress (NotDetected) Ur Phencyclidine Scrn (NotDetected) Ur Amphetamines Screen (NotDetected) U Methamphetamines Scrn (NotDetected) U Benzodiazepines Scrn (NotDetected) Urine Cocaine Screen (NotDetected) U Marijuana (THC) Screen (NotDetected) Serum Alcohol <10 mg/dL 01/28/23 01/28/23 Range/Units 16:15 17:23 WBC (3.8-10.6) k/uL RBC (3.80-5.40) m/uL Hgb (11.4-16.0) gm/dL Hct (34.0-46.0) % MCV (80.0-100.0) fL MCH (25.0-35.0) pg MCHC (31.0-37.0) g/dL RDW (11.5-15.5) % Plt Count (150-450) k/uL MPV Neutrophils % (Manual) % Band Neuts % (Manual) % Lymphocytes % (Manual) % Monocytes % (Manual) % Neutrophils # (Manual) (1.3-7.7) k/uL Lymphocytes # (Manual) (1.0-4.8) k/uL Monocytes # (Manual) (0-1.0) k/uL Nucleated RBCs (0-0) /100 WBC Differential Comment Manual Slide Review Polychromasia Hypochromasia Poikilocytosis Anisocytosis Microcytosis PT (9.0-12.0) sec INR (<1.2) APTT (22.0-30.0) sec Sample Site Left Brachial ABG pH 7.11 L* (7.35-7.45) ABG pCO2 85 H* (35-45) mmHg ABG pO2 56 L* (83-108) mmHg ABG HCO3 27 H (21-25) mmol/L ABG Total CO2 30 H (19-24) mmol/L ABG O2 Saturation 78.9 L (94-97) % ABG Base Excess -2.2 mmol/L Prateek Test Yes FiO2 28 % Sodium (137-145) mmol/L Potassium (3.5-5.1) mmol/L Chloride (98-107) mmol/L Carbon Dioxide (22-30) mmol/L Anion Gap mmol/L BUN (7-17) mg/dL Creatinine (0.52-1.04) mg/dL Est GFR (CKD-EPI)AfAm (>60 ml/min/1.73 sqM) Est GFR (CKD-EPI)NonAf (>60 ml/min/1.73 sqM) Glucose (74-99) mg/dL POC Glucose (mg/dL) 119 H (70-110) mg/dL POC Glu Produce Laborer ID Marko Feliciano Calcium (8.4-10.2) mg/dL Total Bilirubin (0.2-1.3) mg/dL Alkaline Phosphatase (38-126) U/L Troponin I (0.000-0.034) ng/mL NT-Pro-B Natriuret Pep pg/mL Total Protein (6.3-8.2) g/dL Albumin (3.5-5.0) g/dL Urine Color Urine Appearance (Clear) Urine pH (5.0-8.0) Ur Specific [place] (1.001-1.035) Urine Protein (Negative) Urine Glucose (UA) (Negative) Urine Ketones (Negative) Urine Blood (Negative) Urine Nitrite (Negative) Urine Bilirubin (Negative) Urine Urobilinogen (<2.0) mg/dL Ur Leukocyte Esterase (Negative) Urine Opiates Screen (NotDetected) Ur Oxycodone Screen (NotDetected) Urine Methadone Screen (NotDetected) Ur Propoxyphene Screen (NotDetected) Ur Barbiturates Screen (NotDetected) U Tricyclic Antidepress (NotDetected) Ur Phencyclidine Scrn (NotDetected) Ur Amphetamines Screen (NotDetected) U Methamphetamines Scrn (NotDetected) U Benzodiazepines Scrn (NotDetected) Urine Cocaine Screen (NotDetected) U Marijuana (THC) Screen (NotDetected) Serum Alcohol mg/dL Critical Care Time Critical Care Time: Yes Total Critical Care Time: 35 Disposition Clinical Impression: Acute respiratory failure with hypoxia and hypercarbia, LIAM (acute kidney inj ury), CHF (congestive heart failure) Disposition: ADMITTED IP TO THIS HOSP Condition: Serious Is patient prescribed a controlled substance at d/c from ED?: No Referrals: Karon Garvey DO [Primary Care Provider] - 1-2 days Time of Disposition: 17:55
[2023-01-28 15:58] LABS: Anisocytosis Slight; HCT 32.4 % (34.0-46.0); HGB 8.6 gm/dL (11.4-16.0); Hypochromasia Marked; MCH 20.8 pg (25.0-35.0); MCHC 26.5 g/dL (31.0-37.0); MCV 78.4 fL (80.0-100.0); Mean Platelet Volume 8.3; Microcytosis Slight; Platelet Count 681 k/uL (150-450); Poikilocytosis Slight; RBC 4.13 m/uL (3.80-5.40); RDW 18.5 % (11.5-15.5)
--- NOTE | 2023-01-28 16:06 | CT ---
EXAMINATION TYPE: CT brain wo con DATE OF EXAM: 01/28/2023 COMPARISON: 01/15/15 HISTORY: Pt took 2 Klonopin that weren't hers and became altered. Pt fell and needed help getting up, no blood thinners, no LOC. Generalized weakness. CT DLP: 1165.[address] of the brain was performed. The ventricles, basal cisterns and sulci overlying the cerebral convexities demonstrate mild enlargem ent. There is no evidence for intracranial hemorrhage or sulcal effacement. There is decreased attenuation about the periventricular white matter and deep white matter of both c erebral hemispheres, compatible with chronic small vessel ischemia. Differential diagnosis does inclu de demyelination. No mass effects are seen.No midline shift. Osseous calvarium is intact. If symptoms persist consider MRI. IMPRESSION: 1. Age related atrophic and chronic small vessel ischemic change without acute intracranial process s een at this time.
--- NOTE | 2023-01-28 16:09 | XR ---
EXAMINATION TYPE: XR chest 1V portable DATE OF EXAM: 01/28/2023 HISTORY: Shortness of breath. COMPARISON: 05/21/2019 TECHNIQUE: Single view of the chest is submitted. FINDINGS: Demonstrated are scattered senescent parenchymal change. There is no evidence for focal infiltrate. The heart is stable. Hilar and mediastinal structures are within normal limits. Degenerative changes are seen of the dorsal spine. IMPRESSION: 1. Chronic changes without evidence for acute pulmonary disease.
[2023-01-28 16:11] LABS: ABG Base Excess -3.3 mmol/L; ABG HCO3 27 mmol/L (21-25); ABG Oxygen Saturation 49.8 % (94-97); ABG TCO2 30 mmol/L (19-24); Allen Test Performed? Yes
[2023-01-28 16:13] LABS: African American GFR (CKD) 14 (>60 ml/min/1.73 sqM); Albumin 4.2 g/dL (3.5-5.0); Alcohol <10 mg/dL; Alkaline Phosphatase 103 U/L (38-126); Anion Gap 20 mmol/L; Blood Urea Nitrogen 62 mg/dL (7-17); Carbon Dioxide 24 mmol/L (22-30); Chloride 88 mmol/L (98-107); Glucose 108 mg/dL (74-99); Non-African American GFR(CKD) 12 (>60 ml/min/1.73 sqM); Sodium 132 mmol/L (137-145); Total Bilirubin 1.1 mg/dL (0.2-1.3); Total Protein 6.8 g/dL (6.3-8.2)
[2023-01-28 16:14] LABS: ABG PCO2 100 mmHg (35-45); ABG PH 7.05 (7.35-7.45); ABG PO2 38 mmHg (83-108)
[2023-01-28 16:17] LABS: Glucose,Whole Blood 119 mg/dL (70-110)
[2023-01-28 16:18] LABS: INR 1.6 (<1.2); Partial Thromboplastin Time 25.6 sec (22.0-30.0); Prothrombin Time 15.6 sec (9.0-12.0)
[2023-01-28 16:21] LABS: NT-Pro-B-Type Natriuretic Pept 11700 pg/mL
[2023-01-28 16:30] LABS: Band Neutrophils % 1 %; Monocytes # (M) 1.58 k/uL (0-1.0); Neutrophils % (M) 90 %; Nucleated Red Blood Cells 2 /100 WBC (0-0); Total Cells Counted 200; WBC 22.5 k/uL (3.8-10.6)
[2023-01-28 16:32] LABS: Polychromasia Present
[2023-01-28 17:05] LABS: Appearance,Urine Clear (Clear); Bilirubin,Urine Negative (Negative); Blood,Urine Negative (Negative); Color,Urine Light Yellow; Glucose,Urine (UA) Negative (Negative); Ketones,Urine Negative (Negative); Leukocyte Esterase,Urine Negative (Negative); Nitrite,Urine Negative (Negative); Protein,Urine Negative (Negative); Specific Gravity,Urine 1.011 (1.001-1.035); Urobilinogen,Urine <2.0 mg/dL (<2.0)
[2023-01-28 17:25] LABS: Amphetamine Screen,Urine Not Detected (NotDetected); Barbiturate Screen,Urine Not Detected (NotDetected); Benzodiazepines Screen,Urine Not Detected (NotDetected); Cocaine Screen,Urine Not Detected (NotDetected); Methadone Screen, Urine Not Detected (NotDetected); Opiate Screen,Urine Detected (NotDetected); Oxycodone Screen, Urine Detected (NotDetected); Phencyclidine Screen,Urine Not Detected (NotDetected); Tricyclic Antidepressant,Urine Detected (NotDetected); Urn Cannabinoid Scrn Not Detected (NotDetected)
[2023-01-28 17:27] LABS: ABG Base Excess -2.2 mmol/L; ABG HCO3 27 mmol/L (21-25); ABG Oxygen Saturation 78.9 % (94-97); ABG TCO2 30 mmol/L (19-24); Allen Test Performed? Yes
[2023-01-28 17:31] LABS: ABG PCO2 85 mmHg (35-45); ABG PH 7.11 (7.35-7.45); ABG PO2 56 mmHg (83-108)
[2023-01-28] MEDS ORDERED: methylPREDNISolone SOD SUCCI 125 MG/2 ML VIAL IV STA (17:56)
[2023-01-28] MEDS ORDERED: NALOXONE 0.4 MG/ML 1 ML VIAL IVP PRN (17:56)
[2023-01-28] MEDS ORDERED: IPRATROPIUM-ALBUTEROL 3 ML NEB INHALATION PRN (17:56)
[2023-01-28 18:01] LABS: ALT 2982 U/L (4-34); AST 3376 U/L (14-36)
[2023-01-28] MEDS: IPRATROPIUM-ALBUTEROL 3 ML NEB INHALATION SCH (20:16)
[2023-01-28] MEDS ORDERED: LORazepam 2 MG/ML INJ IV STA (20:31)
[2023-01-29] MEDS: FUROSEMIDE 10 MG/ML 4 ML VIAL IV SCH ×4 (00:04→22:40)
[2023-01-29] MEDS: methylPREDNISolone SOD SUCCI 125 MG/2 ML VIAL IV SCH ×5 (00:08→22:39)
[2023-01-29] MEDS: IPRATROPIUM-ALBUTEROL 3 ML NEB INHALATION SCH ×4 (08:07→19:30)
[2023-01-29] MEDS: DULoxetine HCL 60 MG CAPSULE.DR PO SCH ×2 (08:11→08:14)
[2023-01-29] MEDS: APIXABAN 5 MG TAB PO SCH ×2 (08:11→21:33)
[2023-01-29] MEDS: METOPROLOL SUCCINATE (ER) 50 MG TAB.ER.24H PO SCH ×2 (08:20→10:07)
--- NOTE | 2023-01-29 08:52 | P.HPIM ---
History of Present Illness This is a pleasant 67 years old female with past medical history of CVA/TIA, Fibromyalgia, Hyperlipidemia, Hypertension, Memory Impairment, Osteoarthritis ,chronic neck and back pain, ddd, ARTHRITIS, USES CANE NEEDED FOR FIBROMY ALGIA, s/p cervical fusion,, Anxiety, Depression, Panic Disorder, Current every day smoker Patient presents because of generalized weakness and drowsiness and inability to get up. Patient also was confused. Took extra dose of Klonopin that does not belong to her Results the patient she was looking tired, she was on BiPAP machine which limits her ability to provide information however she follow commands appropriately. She can't tell she is in the hospital the year and the name of the president. She says she's been having some difficulty breathing for around 2 days, no report of coughing. When I asked her she denies chest pain or abdominal pain. Her abdomen looks soft. No vomiting or diarrhea. No weakness or numbness. patient is afebrile, mildly tachycardic and hypoxic and she was saturating 81-91 on 4 L oxygen via nasal cannula patient currently on BiPAP with improved saturation patient has significant leukocytosis of 22.5, hemoglobin 8.6. Platelet count 681. INR 1.6. PH 7.11, pCO2 elevated 85 nothing by mouth to allow 56. Sodium 132, potassium 6, creatinine 3.6, previously was within the reference range. Bilirubin is in within the reference range at 1.1 but AST elevated 3376 and ALT 2982 area Troponin is elevated 0.073. ProBNP is high 11 700 urine analysis is negative. Urine drug screen is positive for opiates, oxycodone and tricyclic antidepressant while serum alcohol less than 10. Chest x-ray: Cardiomegaly with possible pulmonary congestion CT of the brain: No acute process. Atrophic changes EKG: Atrial fibrillation with a rate of 83 with right axis deviation and right bundle branch block and QTC 474 patient was started on Solu-Medrol, IV Lasix Review of Systems Review of systems CONSTITUTIONAL: No fever, no malaise, no fatigue. HEENT: No recent visual problems or hearing problems. Denied any sore throat. CARDIOVASCULAR: No orthopnea, PND, no palpitations, no syncope. PULMONARY: no cough, no hemoptysis. GASTROINTESTINAL: No diarrhea, no abdominal pain. Normoactive bowel sounds. NEUROLOGICAL: No headaches, no weakness, no numbness. HEMATOLOGICAL: Denies any bleeding or petechiae. GENITOURINARY: Denies any burning micturition, frequency, or urgency. MUSCULOSKELETAL/RHEUMATOLOGICAL: Denies any joint pain, swelling, or any muscle pain. ENDOCRINE: Denies any polyuria or polydipsia. Past Medical History Past Medical History: CVA/TIA, Fibromyalgia, Hyperlipidemia, Hypertension, Memory Impairment, Osteoarthritis (OA) Additional Past Medical History / Comment(s): chronic neck and back pain, ddd, ARTHRITIS, USES CANE NEEDED FOR FIBROMYALGIA History of Any Multi-Drug Resistant Organisms: None Reported Past Surgical History: Hernia Repair, Hysterectomy Additional Past Surgical History / Comment(s): cervical fusion, Past Anesthesia/Blood Transfusion Reactions: No Reported Reaction Past Psychological History: Anxiety, Depression, Panic Disorder Smoking Status: Current every day smoker Past Alcohol Use History: None Reported Past Drug Use History: None Reported - Past Family History Mother Family Medical History: Cancer Medications and Allergies Home Medications Medication Instructions Recorded Confirmed Type DULoxetine HCL [Cymbalta] 120 mg PO DAILY 01/15/15 01/28/23 History Mirtazapine [Remeron] 45 mg PO HS 01/15/15 01/28/23 History clonazePAM [KlonoPIN] 1 mg PO BID 01/24/18 01/28/23 History oxyCODONE-APAP 10-325MG [Percocet 1 tab PO BID 01/24/18 01/28/23 History 10-325 mg] Amiodarone [Cordarone] 200 mg PO DAILY 01/28/23 01/28/23 History Apixaban [Eliquis] 5 mg PO BID 01/28/23 01/28/23 History Cyclobenzaprine [Flexeril] 5 mg PO BID PRN 01/28/23 01/28/23 History Famotidine [Pepcid] 20 mg PO BID 01/28/23 01/28/23 History Metoprolol Succinate (ER) [Toprol 50 mg PO DAILY 01/28/23 01/28/23 History Xl] Morphine Sulfate ER [Ms Contin] 30 mg PO Q12HR 01/28/23 01/28/23 History Potassium Chloride ER [K-Dur 20] 20 meq PO DAILY 01/28/23 01/28/23 History Spironolactone [Aldactone] 25 mg PO DAILY 01/28/23 01/28/23 History Suvorexant [Belsomra] 20 mg PO HS 01/28/23 01/28/23 History Torsemide [Demadex] 40 mg PO BID 01/28/23 01/28/23 History dilTIAZem HCL [dilTIAZem HCL 24Hr 120 mg PO DAILY 01/28/23 01/28/23 History ER (Xr)] Allergies Allergy/AdvReac Type Severity Reaction Status Date / Time No Known Allergies Allergy Verified 01/28/23 14:43 Physical Exam Vitals: Vital Signs Temp Pulse Resp BP Pulse Ox FiO2 01/29/23 07:00 97.4 F L 112 H 24 112/88 95 01/29/23 04:25 99 14 112/88 98 01/29/23 03:53 32 01/29/23 01:00 101 H 15 113/70 92 L 01/29/23 00:15 32 01/28/23 22:30 92 14 104/70 90 L 01/28/23 20:47 94 18 115/81 92 L 01/28/23 20:31 87 01/28/23 20:16 92 32 01/28/23 18:41 89 18 115/75 01/28/23 17:34 32 01/28/23 17:19 82 24 90 L 01/28/23 16:30 28 01/28/23 16:29 28 01/28/23 16:07 89 L 01/28/23 14:17 97.8 F 104 H 18 108/91 91 L Intake and Output 01/28/23 01/29/23 01/29/23 22:59 06:59 14:59 Output Total 500 Balance -500 Output: Urine 500 Uretheral (Weaver) 500 -GENERAL: The patient is alert and oriented x3, tired, she follows commands, not in any acute distress. Well developed, well nourished. HEENT: Pupils are round and equally reacting to light. EOMI. No scleral icterus. No conjunctival pallor. Normocephalic, atraumatic. No pharyngeal erythema. No thyromegaly. CARDIOVASCULAR: S1 and S2 present. No murmurs, rubs, or gallops. -PULMONARY: Decreased air entry in both sides, no wheezing , no crackles. On BiPAP ABDOMEN: Soft, nontender, nondistended, normoactive bowel sounds. No palpable organomegaly. MUSCULOSKELETAL: No joint swelling or deformity. EXTREMITIES: No cyanosis, clubbing, or pedal edema. NEUROLOGICAL: Gross neurological examination did not reveal any focal deficits. SKIN: No rashes. no petechiae. Results CBC & Chem 7: 01/28/23 15:39 01/28/23 15:39 Labs: Abnormal Lab Results - Last 24 Hours (Table) 01/28/23 01/28/23 01/28/23 Range/Units 15:39 15:39 15:39 WBC 22.5 H (3.8-10.6) k/uL Hgb 8.6 L (11.4-16.0) gm/dL Hct 32.4 L (34.0-46.0) % MCV 78.4 L (80.0-100.0) fL MCH 20.8 L (25.0-35.0) pg MCHC 26.5 L (31.0-37.0) g/dL RDW 18.5 H (11.5-15.5) % Plt Count 681 H (150-450) k/uL Neutrophils # (Manual) 20.40 H (1.3-7.7) k/uL Lymphocytes # (Manual) 0.90 L (1.0-4.8) k/uL Monocytes # (Manual) 1.58 H (0-1.0) k/uL Nucleated RBCs 2 H (0-0) /100 WBC PT 15.6 H (9.0-12.0) sec INR 1.6 H (<1.2) ABG pH (7.35-7.45) ABG pCO2 (35-45) mmHg ABG pO2 (83-108) mmHg ABG HCO3 (21-25) mmol/L ABG Total CO2 (19-24) mmol/L ABG O2 Saturation (94-97) % Sodium (137-145) mmol/L Potassium (3.5-5.1) mmol/L Chloride (98-107) mmol/L BUN (7-17) mg/dL Creatinine (0.52-1.04) mg/dL Glucose (74-99) mg/dL POC Glucose (mg/dL) (70-110) mg/dL Calcium (8.4-10.2) mg/dL AST (14-36) U/L ALT (4-34) U/L Troponin I (0.000-0.034) ng/mL Urine Opiates Screen Detected H (NotDetected) Ur Oxycodone Screen Detected H (NotDetected) U Tricyclic Antidepress Detected H (NotDetected) 01/28/23 01/28/23 01/28/23 Range/Units 15:39 15:39 16:00 WBC (3.8-10.6) k/uL Hgb (11.4-16.0) gm/dL Hct (34.0-46.0) % MCV (80.0-100.0) fL MCH (25.0-35.0) pg MCHC (31.0-37.0) g/dL RDW (11.5-15.5) % Plt Count (150-450) k/uL Neutrophils # (Manual) (1.3-7.7) k/uL Lymphocytes # (Manual) (1.0-4.8) k/uL Monocytes # (Manual) (0-1.0) k/uL Nucleated RBCs (0-0) /100 WBC PT (9.0-12.0) sec INR (<1.2) ABG pH 7.05 L* (7.35-7.45) ABG pCO2 100 H* (35-45) mmHg ABG pO2 38 L* (83-108) mmHg ABG HCO3 27 H (21-25) mmol/L ABG Total CO2 30 H (19-24) mmol/L ABG O2 Saturation 49.8 L (94-97) % Sodium 132 L (137-145) mmol/L Potassium 6.0 H (3.5-5.1) mmol/L Chloride 88 L (98-107) mmol/L BUN 62 H (7-17) mg/dL Creatinine 3.65 H (0.52-1.04) mg/dL Glucose 108 H (74-99) mg/dL POC Glucose (mg/dL) (70-110) mg/dL Calcium 8.0 L (8.4-10.2) mg/dL AST 3376 H (14-36) U/L ALT 2982 H (4-34) U/L Troponin I 0.073 H* (0.000-0.034) ng/mL Urine Opiates Screen (NotDetected) Ur Oxycodone Screen (NotDetected) U Tricyclic Antidepress (NotDetected) 01/28/23 01/28/23 Range/Units 16:15 17:23 WBC (3.8-10.6) k/uL Hgb (11.4-16.0) gm/dL Hct (34.0-46.0) % MCV (80.0-100.0) fL MCH (25.0-35.0) pg MCHC (31.0-37.0) g/dL RDW (11.5-15.5) % Plt Count (150-450) k/uL Neutrophils # (Manual) (1.3-7.7) k/uL Lymphocytes # (Manual) (1.0-4.8) k/uL Monocytes # (Manual) (0-1.0) k/uL Nucleated RBCs (0-0) /100 WBC PT (9.0-12.0) sec INR (<1.2) ABG pH 7.11 L* (7.35-7.45) ABG pCO2 85 H* (35-45) mmHg ABG pO2 56 L* (83-108) mmHg ABG HCO3 27 H (21-25) mmol/L ABG Total CO2 30 H (19-24) mmol/L ABG O2 Saturation 78.9 L (94-97) % Sodium (137-145) mmol/L Potassium (3.5-5.1) mmol/L Chloride (98-107) mmol/L BUN (7-17) mg/dL Creatinine (0.52-1.04) mg/dL Glucose (74-99) mg/dL POC Glucose (mg/dL) 119 H (70-110) mg/dL Calcium (8.4-10.2) mg/dL AST (14-36) U/L ALT (4-34) U/L Troponin I (0.000-0.034) ng/mL Urine Opiates Screen (NotDetected) Ur Oxycodone Screen (NotDetected) U Tricyclic Antidepress (NotDetected) Assessment and Plan Assessment: Acute COPD exacerbation Acute hypoxemic hypercapnic respiratory failure Acute respiratory acidosis Metabolic/toxic encephalopathy, mild Acute renal failure with hyperkalemia, present on admission Possible acute congestive heart failure transamnitis Atrial fibrillation Leukocytosis Hypochromic, microcytic anemia History of CVA/TIA Hypertension Hyperlipidemia History of memory impairment History of osteo-arthritis Chronic neck and back pain status post cervical fusion surgery. Anxiety depression and panic disorder, not in active tissue Plan: Continue with IV Lasix Continue with IV Solu-Medrol 60 mg start doxycycline Continue with a breathing treatment of bronchodilator Check echocardiogram check liver us Resume Eliquis Hold Aldactone Cardiology, pulmonary and nephrology consult on the case Continue with Weaver catheter Labs and medication were reviewed.. Continue same treatment. Continue with symptomatic treatment. Resume home medication. Monitor labs and vitals. DVT and GI prophylaxis. Further recommendations as per clinical course of the patient DVT prophylaxis: Eliquis GI Prophylaxis: Pepcid PT/OT: Pending Prognosis is guarded
[2023-01-29] MEDS ORDERED: FAMOTIDINE 20 MG TAB PO SCH (09:00)
[2023-01-29] MEDS ORDERED: AMIODARONE 200 MG TAB PO SCH (09:00)
[2023-01-29] MEDS ORDERED: SPIRONOLACTONE 25 MG TAB PO SCH (09:00)
[2023-01-29 09:28] LABS: ABG Base Excess -1.1 mmol/L; ABG HCO3 26 mmol/L (21-25); ABG Oxygen Saturation 90.8 % (94-97); ABG PCO2 63 mmHg (35-45); ABG PH 7.23 (7.35-7.45); ABG PO2 69 mmHg (83-108); ABG TCO2 28 mmol/L (19-24); Allen Test Performed? Yes
[2023-01-29 09:32] LABS: Anisocytosis Slight; Basophils % (A) 0 %; Eosinophils % (A) 0 %; HCT 30.2 % (34.0-46.0); HGB 8.3 gm/dL (11.4-16.0); Hypochromasia Marked; Lymphocytes # (A) 0.9 k/uL (1.0-4.8); Lymphocytes % (A) 5 %; MCH 20.8 pg (25.0-35.0); MCHC 27.4 g/dL (31.0-37.0); Mean Platelet Volume 7.8; Microcytosis Moderate; Monocytes # (A) 0.7 k/uL (0-1.0); Monocytes % (A) 4 %; Neutrophils # (A) 16.5 k/uL (1.3-7.7); Neutrophils % (A) 90 %; Platelet Count 605 k/uL (150-450); Poikilocytosis Slight; RBC 3.97 m/uL (3.80-5.40); RDW 18.8 % (11.5-15.5); WBC 18.2 k/uL (3.8-10.6)
[2023-01-29 09:35] LABS: INR 1.6 (<1.2); Prothrombin Time 16.1 sec (9.0-12.0)
[2023-01-29] MEDS: DOXYCYCLINE 100 MG in SODIUM CHLORIDE 0.9% 100 ML IVPB SCH ×2 (09:45→21:33)
[2023-01-29 09:49] LABS: African American GFR (CKD) 12 (>60 ml/min/1.73 sqM); Albumin 4.1 g/dL (3.5-5.0); Alkaline Phosphatase 113 U/L (38-126); Anion Gap 17 mmol/L; Bilirubin, Delta 0.7 mg/dL (0.0-0.2); Bilirubin,Unconjugated 0.5 mg/dL (0.0-1.1); Blood Urea Nitrogen 82 mg/dL (7-17); Calcium 6.8 mg/dL (8.4-10.2); Carbon Dioxide 25 mmol/L (22-30); Chloride 87 mmol/L (98-107); Creatine Kinase 471 U/L (30-135); Glucose 127 mg/dL (74-99); Non-African American GFR(CKD) 10 (>60 ml/min/1.73 sqM); Sodium 129 mmol/L (137-145); Total Bilirubin 1.2 mg/dL (0.2-1.3)
[2023-01-29] MEDS: DILTIAZEM CD 120 MG CAP.ER.24H PO SCH (09:57)
[2023-01-29] MEDS: clonazePAM 1 MG TAB PO SCH ×3 (10:00→21:33)
[2023-01-29 10:09] LABS: Potassium 6.4 mmol/L (3.5-5.1)
[2023-01-29] MEDS ORDERED: DEXTROSE 50% SYRINGE 50 ML IVP STA (10:11)
[2023-01-29] MEDS ORDERED: SODIUM BICARB 8.4% 50 ML SYR (1 MEQ/ML) IV STA (10:16)
[2023-01-29 10:17] LABS: Poikilocytosis (M) Present
--- NOTE | 2023-01-29 10:20 | US ---
EXAMINATION TYPE: US liver DATE OF EXAM: 01/29/2023 COMPARISON: NONE CLINICAL INDICATION: Female, 67 years old with history of elevated liver enz; elevated liver enzymes TECHNIQUE: Multiple sonographic images of the right upper quadrant are obtained. 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
[2023-01-29 10:28] LABS: ALT 4711 U/L (4-34); AST 4961 U/L (14-36)
[2023-01-29] MEDS ORDERED: INSULIN REGULAR 100 UNIT/ML VIAL (IV) IV ONE (10:30)
[2023-01-29] MEDS ORDERED: CALCIUM GLUCONATE IN NACL 1 GM in SALINE 1 100ML.BAG IVPB ONE (11:00)
[2023-01-29] MEDS: SYMBICORT 160-4.5 MCG INHALER INHALATION SCH ×2 (11:42→19:30)
--- NOTE | 2023-01-29 11:59 | P.NPCON ---
History of Present Illness - Reason for Consult acute renal failure - History of Present Illness Patient is a 67-year-old female with history of CVA/TIA, fibromyalgia, hypertension, hyperlipidemia who was admitted to the hospital and with increased weakness and drowsiness. Patient has been confused. It appears that she took an extra dose of Klonopin which did not belong to her. On initial admission patient was noted to be acidotic with pH of 7.0 and pCO2 of 100. She had been on BiPAP with improvement in blood gases. Blood pressure has been's slightly on the lower side with systolic at 10 8 mmHg. Maintained on diuretics at home prior to admission. Serum creatinine was 3.6 yesterday and increased to 4.25 today. Previous creatinine was 1.0 on 08/14/2021. Patient has an indwelling Weaver catheter. 500 mL of urine documented. Started on IV Lasix. Potassium was 6.0 and increased to 6.4 now. Blood sugar is not elevated. Hemoglobin is 8.3. No active bleeding noted. Patient was maintained on Aldactone prior to admission. Review of Systems As per HPI Past Medical History Past Medical History: CVA/TIA, Fibromyalgia, Hyperlipidemia, Hypertension, Memory Impairment, Osteoarthritis (OA) Additional Past Medical History / Comment(s): chronic neck and back pain, ddd, ARTHRITIS, USES CANE NEEDED FOR FIBROMYALGIA History of Any Multi-Drug Resistant Organisms: None Reported Past Surgical History: Hernia Repair, Hysterectomy Additional Past Surgical History / Comment(s): cervical fusion, Past Anesthesia/Blood Transfusion Reactions: No Reported Reaction Past Psychological History: Anxiety, Depression, Panic Disorder Smoking Status: Current every day smoker Past Alcohol Use History: None Reported Past Drug Use History: None Reported - Past Family History Mother Family Medical History: Cancer Medications and Allergies Home Medications Medication Instructions Recorded Confirmed Type DULoxetine HCL [Cymbalta] 120 mg PO DAILY 01/15/15 01/28/23 History Mirtazapine [Remeron] 45 mg PO HS 01/15/15 01/28/23 History clonazePAM [KlonoPIN] 1 mg PO BID 01/24/18 01/28/23 History oxyCODONE-APAP 10-325MG [Percocet 1 tab PO BID 01/24/18 01/28/23 History 10-325 mg] Amiodarone [Cordarone] 200 mg PO DAILY 01/28/23 01/28/23 History Apixaban [Eliquis] 5 mg PO BID 01/28/23 01/28/23 History Cyclobenzaprine [Flexeril] 5 mg PO BID PRN 01/28/23 01/28/23 History Famotidine [Pepcid] 20 mg PO BID 01/28/23 01/28/23 History Metoprolol Succinate (ER) [Toprol 50 mg PO DAILY 01/28/23 01/28/23 History Xl] Morphine Sulfate ER [Ms Contin] 30 mg PO Q12HR 01/28/23 01/28/23 History Potassium Chloride ER [K-Dur 20] 20 meq PO DAILY 01/28/23 01/28/23 History Spironolactone [Aldactone] 25 mg PO DAILY 01/28/23 01/28/23 History Suvorexant [Belsomra] 20 mg PO HS 01/28/23 01/28/23 History Torsemide [Demadex] 40 mg PO BID 01/28/23 01/28/23 History dilTIAZem HCL [dilTIAZem HCL 24Hr 120 mg PO DAILY 01/28/23 01/28/23 History ER (Xr)] Allergies Allergy/AdvReac Type Severity Reaction Status Date / Time No Known Allergies Allergy Verified 01/28/23 14:43 Physical Exam Vitals: Vital Signs Temp Pulse Resp BP Pulse Ox FiO2 01/29/23 08:23 36 01/29/23 08:18 104 H 01/29/23 08:07 100 32 01/29/23 07:00 97.4 F L 112 H 24 112/88 95 01/29/23 04:25 99 14 112/88 98 01/29/23 03:53 32 01/29/23 01:00 101 H 15 113/70 92 L 01/29/23 00:15 32 01/28/23 22:30 92 14 104/70 90 L 01/28/23 20:47 94 18 115/81 92 L 01/28/23 20:31 87 01/28/23 20:16 92 32 01/28/23 18:41 89 18 115/75 01/28/23 17:34 32 01/28/23 17:19 82 24 90 L 01/28/23 16:30 28 01/28/23 16:29 28 01/28/23 16:07 89 L 01/28/23 14:17 97.8 F 104 H 18 108/91 91 L Intake and Output 01/28/23 01/29/23 01/29/23 22:59 06:59 14:59 Output Total 500 Balance -500 Output: Urine 500 Uretheral (Weaver) 500 Patient is awake, confused and not able to communicate much Examination of the heart S1 and S2 Examination of the lungs bilateral breath sounds are heard Abdomen is soft obese nontender Examination of the lower extremities shows edema 1+ bilaterally with chronic skin changes Results - Lab Results Most recent lab results ABG pH 7.23 (7.35-7.45) L 01/29/23 09:25 ABG pCO2 63 mmHg (35-45) H 01/29/23 09:25 ABG pO2 69 mmHg (83-108) L 01/29/23 09:25 ABG HCO3 26 mmol/L (21-25) H 01/29/23 09:25 ABG O2 Saturation 90.8 % (94-97) L 01/29/23 09:25 Calcium 6.8 mg/dL (8.4-10.2) L 01/29/23 09:00 01/29/23 09:00 01/29/23 09:00 Assessment and Plan Assessment: 1. Acute kidney injury mostly ATN. Indwelling Weaver catheter present. UA is completely benign. Check ultrasound of the kidneys 2. Mental status changes secondary to hypercapnic respiratory failure 3. Respiratory acidosis and hypercapnic respiratory failure status post BiPAP 4. Hyperkalemia associated with acute kidney injury, rule out GI bleed. Aldactone on hold 5. Anemia rule out iron deficiency. No active bleeding noted. Consider GI bleed given the hyperkalemia and low hemoglobin 6. Hyponatremia, hypervolemic 7. Hypervolemia/volume overload Plan: Continue with IV Lasix Treat hyperkalemia with IV medications Lokelma if patient is able to take by mouth medications Continue to hold Aldactone Repeat labs this evening. If renal function continues to worsen and patient remains hyperkalemic and oliguric she will need to be dialyzed. Check iron profile Avoid nephrotoxic agents Thank you for the consultation. We will continue to follow the patient with you during her her hospitalization.
--- NOTE | 2023-01-29 12:26 | P.CRDCN ---
History of Present Illness Consult date: 01/29/23 History of present illness: HISTORY OF PRESENTING ILLNESS 67-year-old with past medical history of CVA/TIA, fibromyalgia, hyperlipidemia, hypertension, memory impairment, osteoarthritis, chronic neck and back pain, atrial fibrillation, congestive heart failure, COPD. Patient smokes tobacco almost everyday. Patient present to the hospital with generalized weakness, drowsiness, and inability to get up. On admission she was significantly confused and her speech was altered. Patient took extra dose of Klonopin before coming to the hospital. Cardiology was consulted to evaluate and manage atrial fibrillation and congestive heart failure. BP 112/88, heart rate 120s, EKG shows atrial fibrillation with right bundle branch block Labs show significant W BC count of 18,000, anemia hemoglobin 8. 0.3, microcytosis, INR 1.6, metabolic acidosis, hypercapnia, hypoxia hyperkalemia potassium 6.4, hyponatremia, LIAM creatinine of 4. Baseline creatinine is around 0.9. Ammonia 40, BUN 82 DIAGNOSTICS EKG reveals atrial fibrillation with right bundle branch block. Chest xray cardiomegaly with mild pulmonary congestion. Home cardiac medications include spironolactone 25, amiodarone 200, metoprolol 50 mg, apixaban 5, Cardizem 120, torsemide 40 twice a day,. PRIOR CARDIAC TESTING Echocardiogram from 2020 showed an EF of 55%, asymmetrical septal hypertrophy REVIEW OF SYSTEMS Review of system could not be obtained as patient is confused. PHYSICAL EXAMINATION Vital signs reviewed. Head: Normocephalic. Eyes: Sclerae nonicteric. Neck: Brisk carotid upstroke, JVP could not be assessed due to thick neck Lungs: Poor inspiratory effort, mild crackles audible, Heart: Irregularly irregular pulse, S1-S2 is audible, no murmurs Abdomen: Soft nontender, positive bowel sounds no organomegaly. Extremities: 2+ pitting edema in bilateral 70, admission in bilateral lower extremity Neurological exam, patient is confused not able to answer cushions appropriately. Not following commands. ASSESSMENT Acute hypoxic and hypercapnic respiratory failure Metabolic encephalopathy due to multifactorial reasons Multiple electrolyte abnormalities including hypo-natremia, hyperkalemia LIAM Acute HFpEF exacerbation A. fib RVR. Patient is chronic A. fib Acute COPD exacerbation Severe sepsis Hypertension, dyslipidemia, type 2 diabetes, prior CVA PLAN Continue metoprolol succinate 50 mg daily, Eliquis 5 mg daily Hold spironolactone due to hyperkalemia. Agree with IV Lasix 40 mg twice a day. Check for urine output. Check for any obstructive uropathy with bladder ultrasound and renal ultrasound. Obtain nephrology consult Hold amiodarone for now IV antibiotics as per primary team Infectious workup as per primary team COPD management Past Medical History Past Medical History: CVA/TIA, Fibromyalgia, Hyperlipidemia, Hypertension, Memory Impairment, Osteoarthritis (OA) Additional Past Medical History / Comment(s): chronic neck and back pain, ddd, ARTHRITIS, USES CANE NEEDED FOR FIBROMYALGIA History of Any Multi-Drug Resistant Organisms: None Reported Past Surgical History: Hernia Repair, Hysterectomy Additional Past Surgical History / Comment(s): cervical fusion, Past Anesthesia/Blood Transfusion Reactions: No Reported Reaction Past Psychological History: Anxiety, Depression, Panic Disorder Smoking Status: Current every day smoker Past Alcohol Use History: None Reported Past Drug Use History: None Reported - Past Family History Mother Family Medical History: Cancer Medications and Allergies Home Medications Medication Instructions Recorded Confirmed Type DULoxetine HCL [Cymbalta] 120 mg PO DAILY 01/15/15 01/28/23 History Mirtazapine [Remeron] 45 mg PO HS 01/15/15 01/28/23 History clonazePAM [KlonoPIN] 1 mg PO BID 01/24/18 01/28/23 History oxyCODONE-APAP 10-325MG [Percocet 1 tab PO BID 01/24/18 01/28/23 History 10-325 mg] Amiodarone [Cordarone] 200 mg PO DAILY 01/28/23 01/28/23 History Apixaban [Eliquis] 5 mg PO BID 01/28/23 01/28/23 History Cyclobenzaprine [Flexeril] 5 mg PO BID PRN 01/28/23 01/28/23 History Famotidine [Pepcid] 20 mg PO BID 01/28/23 01/28/23 History Metoprolol Succinate (ER) [Toprol 50 mg PO DAILY 01/28/23 01/28/23 History Xl] Morphine Sulfate ER [Ms Contin] 30 mg PO Q12HR 01/28/23 01/28/23 History Potassium Chloride ER [K-Dur 20] 20 meq PO DAILY 01/28/23 01/28/23 History Spironolactone [Aldactone] 25 mg PO DAILY 01/28/23 01/28/23 History Suvorexant [Belsomra] 20 mg PO HS 01/28/23 01/28/23 History Torsemide [Demadex] 40 mg PO BID 01/28/23 01/28/23 History dilTIAZem HCL [dilTIAZem HCL 24Hr 120 mg PO DAILY 01/28/23 01/28/23 History ER (Xr)] Allergies Allergy/AdvReac Type Severity Reaction Status Date / Time No Known Allergies Allergy Verified 01/28/23 14:43 Physical Exam Vitals: Vital Signs Temp Pulse Resp BP Pulse Ox FiO2 01/29/23 08:23 36 01/29/23 08:18 104 H 01/29/23 08:07 100 32 01/29/23 07:00 97.4 F L 112 H 24 112/88 95 01/29/23 04:25 99 14 112/88 98 01/29/23 03:53 32 01/29/23 01:00 101 H 15 113/70 92 L 01/29/23 00:15 32 01/28/23 22:30 92 14 104/70 90 L 01/28/23 20:47 94 18 115/81 92 L 01/28/23 20:31 87 01/28/23 20:16 92 32 01/28/23 18:41 89 18 115/75 01/28/23 17:34 32 01/28/23 17:19 82 24 90 L 01/28/23 16:30 28 01/28/23 16:29 28 01/28/23 16:07 89 L 01/28/23 14:17 97.8 F 104 H 18 108/91 91 L Intake and Output 01/28/23 01/29/23 01/29/23 22:59 06:59 14:59 Output Total 500 Balance -500 Output: Urine 500 Uretheral (Weaver) 500 Results 01/29/23 09:00 01/29/23 09:00 Cardiac Enzymes 01/28/23 01/28/23 01/29/23 Range/Units 15:39 15:39 09:00 AST 3376 H 4961 H (14-36) U/L Troponin I 0.073 H* (0.000-0.034) ng/mL Coagulation 01/28/23 01/29/23 Range/Units 15:39 09:00 PT 15.6 H 16.1 H (9.0-12.0) sec APTT 25.6 (22.0-30.0) sec CBC 01/28/23 01/29/23 Range/Units 15:39 09:00 WBC 22.5 H 18.2 H (3.8-10.6) k/uL RBC 4.13 3.97 (3.80-5.40) m/uL Hgb 8.6 L 8.3 L (11.4-16.0) gm/dL Hct 32.4 L 30.2 L (34.0-46.0) % Plt Count 681 H 605 H (150-450) k/uL Comprehensive Metabolic Panel 01/28/23 01/29/23 Range/Units 15:39 09:00 Sodium 132 L 129 L (137-145) mmol/L Potassium 6.0 H 6.4 H* (3.5-5.1) mmol/L Chloride 88 L 87 L (98-107) mmol/L Carbon Dioxide 24 25 (22-30) mmol/L BUN 62 H 82 H (7-17) mg/dL Creatinine 3.65 H 4.25 H (0.52-1.04) mg/dL Glucose 108 H 127 H (74-99) mg/dL Calcium 8.0 L 6.8 L (8.4-10.2) mg/dL Unconjugated Bilirubin 0.5 (0.0-1.1) mg/dL AST 3376 H 4961 H (14-36) U/L ALT 2982 H 4711 H (4-34) U/L Alkaline Phosphatase 103 113 (38-126) U/L Total Protein 6.8 7.0 (6.3-8.2) g/dL Albumin 4.2 4.1 (3.5-5.0) g/dL Current Medications Generic Name Dose Route Start Last Admin Trade Name Freq PRN Reason Stop Dose Admin Acetaminophen 650 mg 01/28/23 17:56 Acetaminophen Tab 325 Mg Tab PO Q4HR PRN Mild Pain or Fever > 100.5 Albuterol/Ipratropium 3 ml 01/28/23 20:00 01/29/23 08:07 Ipratropium-Albuterol 3 Ml Neb INHALATION 3 ml RT-QID ISIDORO Administration Albuterol/Ipratropium 3 ml 01/28/23 17:56 Ipratropium-Albuterol 3 Ml Neb INHALATION RT-Q2H PRN Shortness Of Breath Or Wheezing Amiodarone HCl 200 mg 01/29/23 09:00 01/29/23 09:57 Amiodarone 200 Mg Tab PO 200 mg DAILY ISIDORO Administration Apixaban 5 mg 01/29/23 09:00 01/29/23 08:11 Apixaban 5 Mg Tab PO 5 mg BID ISIDORO Administration Protocol Budesonide/Formoterol Fumarate 2 puff 01/29/23 09:00 01/29/23 11:42 Symbicort 160-4.5 Mcg Inhaler INHALATION Not Given RT-BID ISIDORO Clonazepam 1 mg 01/29/23 09:00 01/29/23 10:06 Clonazepam 1 Mg Tab PO Not Given BID ISIDORO Diltiazem HCl 120 mg 01/29/23 09:00 01/29/23 09:57 Diltiazem Cd 120 Mg Cap.Er.24h PO 120 mg DAILY ISIDORO Administration Duloxetine HCl 120 mg 01/29/23 09:00 01/29/23 08:14 Duloxetine Hcl 60 Mg Capsule.Dr PO 120 mg DAILY ISIDORO Administration Famotidine 20 mg 01/30/23 09:00 Famotidine 20 Mg Tab PO DAILY ISIDORO Furosemide 40 mg 01/29/23 00:00 01/29/23 08:11 Furosemide 10 Mg/Ml 4 Ml Vial IV 40 mg Q8HR ISIDORO Administration Doxycycline Hyclate 100 mg/ 100 mls @ 100 mls/hr 01/29/23 09:30 01/29/23 09:45 Sodium Chloride IVPB 100 mls/hr Q12HR ISIDORO Administration Protocol Lactulose 20 gm 01/29/23 16:00 Lactulose 20 Gm/30 Ml Cup PO TID ISIDORO Methylprednisolone Sodium Succinate 60 mg 01/29/23 00:00 01/29/23 11:46 Methylprednisolone Sod Succi 125 Mg/2 Ml Vial IV 60 mg Q6HR ISIDORO Administration Metoprolol Succinate 50 mg 01/29/23 09:00 01/29/23 10:07 Metoprolol Succinate (Er) 50 Mg Tab.Er.24h PO 50 mg DAILY ISIDORO Administration Mirtazapine 45 mg 01/29/23 21:00 Mirtazapine 45 Mg Tablet PO HS ISIDORO Naloxone HCl 0.2 mg 01/28/23 17:56 Naloxone 0.4 Mg/Ml 1 Ml Vial IVP Q2M PRN Opioid Reversal Intake and Output 01/28/23 01/29/23 01/29/23 22:59 06:59 14:59 Output Total 500 Balance -500 Output: Urine 500 Uretheral (Weaver) 500 01/29/23 09:00 01/29/23 09:00
--- NOTE | 2023-01-29 12:49 | CA ---
Transthoracic Echo Report Name: Lindsay Dunn Age: 67 Gender: F : 1955 Exam Date: 01/29/2023 08:16 Exam Location: [facility] Ht (in): 64 Wt (lb): 200 Ordering Physician: Asher Lazo DO Attending/Referring Phys: Research Scientist Ryanne Lott [facility] Procedure CPT: Indications: dyspnea Cardiac Hx: Technical Quality: Technically difficult study Contrast 1: Total Dose (mL): Contrast 2: Total Dose (mL): MEASUREMENTS (Male / Female) Normal Values 2D ECHO LV Diastolic Diameter PLAX 4.9 cm 4.2 - 5.9 / 3.9 - 5.3 cm LV Systolic Diameter PLAX 2.9 cm IVS Diastolic Thickness 1.3 cm 0.6 - 1.0 / 0.6 - 0.9 cm LVPW Diastolic Thickness 1.2 cm 0.6 - 1.0 / 0.6 - 0.9 cm LV Relative Wall Thickness 0.5 LVOT Diameter 2.0 cm LA Volume 111.9 cm??? 18 - 58 / 22 - 52 cm??? LA Volume Index 54.3 cm???/m??? 16 - 28 cm???/m??? Ascending Aorta Diameter 3.3 cm M-MODE Aortic Root Diameter MM 3.3 cm LA Systolic Diameter MM 5.7 cm LA Ao Ratio MM 1.7 AV Cusp Separation MM 1.8 cm DOPPLER AV Peak Velocity 142.2 cm/s AV Peak Gradient 8.1 mmHg AV Mean Velocity 110.4 cm/s AV Mean Gradient 5.2 mmHg AV Velocity Time Integral 24.1 cm LVOT Peak Velocity 98.7 cm/s LVOT Peak Gradient 3.9 mmHg LVOT Velocity Time Integral 15.7 cm LVOT Stroke Volume 50.3 cm??? LVOT Stroke Volume Index 25.7 ml/m??? LVOT Cardiac Index 2734.2 cm???/min???m??? AV Area Cont Eq vti 2.1 cm??? AV Area Cont Eq pk 2.2 cm??? Mitral E Point Velocity 139.4 cm/s MV Deceleration Time 160.8 ms LV E' Lateral Velocity 12.6 cm/s Mitral E to LV E' Lateral Ratio 11.0 LV E' Septal Velocity 8.8 cm/s Mitral E to LV E' Septal Ratio 15.9 TR Peak Velocity 285.7 cm/s TR Peak Gradient 32.6 mmHg Right Atrial Pressure 8.0 mmHg Pulmonary Artery Systolic Pressu 40.6 mmHg Right Ventricular Systolic Press 40.6 mmHg FINDINGS Left Ventricle Mildly increased septal wall thickness. Mildly increased posterior wall thickness. Right Ventricle Severe right ventricular dilatation. Moderate pulmonary hypertension. Right Atrium Moderate right atrial dilatation. Left Atrium Severely increased left atrial volume. Mildly increased left atrial area. Mitral Valve Mitral valve thickened. Trace to mild mitral regurgitation. Aortic Valve Trileaflet aortic valve. No aortic valve stenosis or regurgitation. Tricuspid Valve Tricuspid valve not well visualized. Moderate tricuspid regurgitation. Pulmonic Valve Pulmonic valve not well visualized. Pericardium Minimal pericardial effusion (normal variant). Echo free space anterior to the right ventricle likely represents a fat pad. Aorta Normal size aortic root and proximal ascending aorta. CONCLUSIONS LVH with preserved systolic function Severe right ventricular enlargement with moderate pulmonary hypertension Biatrial enlargement Previewed by: Dr. Beltran Walker MD (Electronically Signed) Final Date: 29 January 2023 12:49
--- NOTE | 2023-01-29 14:14 | XR ---
EXAMINATION TYPE: XR chest 1V portable DATE OF EXAM: 01/29/2023 HISTORY: Shortness of breath. COMPARISON: 01/28/2023 TECHNIQUE: Single view of the chest is submitted. FINDINGS: Demonstrated are scattered senescent parenchymal change. There is no evidence for focal infiltrate. NG tube is seen coursing into the stomach. The heart is stable. Hilar and mediastinal structures are within normal limits. Degenerative changes are seen of the dorsal spine. IMPRESSION: 1. Continued cardiomegaly with pulmonary venous congestion.
--- NOTE | 2023-01-29 15:02 | US ---
EXAMINATION TYPE: US kidneys/renal and bladder DATE OF EXAM: 01/29/2023 COMPARISON: NONE CLINICAL INDICATION: Female, 67 years old with history of liam; Morbidly obese patient with overlying bowel gas limited study, LIAM, patient does not speak when questioned EXAM MEASUREMENTS: Right Kidney: 7.8 x 3.9 x 5.1 cm Left Kidney: could not see Right Kidney: suboptimal view, only estimated measurement done Left Kidney: unable to view due to bowel gas and habitus Bladder: not distended IMPRESSION: 1. Limited exam with nonvisualization of the left kidney. Grossly no hydronephrosis right kidney.
[2023-01-29] MEDS: LACTULOSE 20 GM/30 ML CUP PO SCH ×2 (15:46→21:34)
--- NOTE | 2023-01-29 16:26 | P.CNPUL ---
History of Present Illness Consult date: 01/29/23 Requesting physician: Armond Herbert Reason for consult: dyspnea, hypoxemia, abnormal CXR/CT Chief complaint: Altered mental status, weakness History of present illness: This is a 67-year-old female with a known history of hypertension, hyperlipidemia, fibromyalgia, CVA/TIA, memory impairment, a nxiety/depression/panic disorder, chronic and ongoing tobacco dependence. She was brought into the emergency room by her to start afternoon after finding her to be quite drowsy. He had trouble getting her up. She had trouble bearing her own weight. She was confused. Apparently she had taken extra Klonopin. Computed tomography scan of the brain revealed chronic small vessel ischemic changes without acute intracranial process. Chest x-ray revealed chronic changes but no acute pulmonary disease. Echocardiogram revealed preserved left ventricular systolic function. Severe right ventricular enlargement with moderate pulmonary hypertension. Abdominal ultrasound revealed no acute process. White count 18.2. Hemoglobin 8.3. Platelets 605. Sodium 129. Potassium 6.4. Bicarb 25. BUN 82. Creatinine 4.25. AST 4961. ALT 4711. Ammonia level XL. Creatinine kinase 471. BNP 11,700. Urine drug screen positive for opiates, oxycodone, tricyclic antidepressants. Initial arterial blood gases on 36% FiO2 revealed a P O2 of 38, pCO2 of 100 and a pH of 7.05. She was placed on BiPAP 15/5 and 32% FiO2 and follow-up blood gases revealed a pO2 of 56, pCO2 of 85 and a pH of 7.11. She is seen today in consultation in the emergency department. She is currently resting on a stretcher. Arousable. Not able to give much information. Follow-up arterial blood gases on 36% FiO2 r evealed a pO2 of 69, pCO2 of 63 and a pH of 7.23. Review of Systems ROS unobtainable: due to mental status Past Medical History Past Medical History: CVA/TIA, Fibromyalgia, Hyperlipidemia, Hypertension, Memory Impairment, Osteoarthritis (OA) Additional Past Medical History / Comment(s): chronic neck and back pain, ddd, ARTHRITIS, USES CANE NEEDED FOR FIBROMYALGIA History of Any Multi-Drug Resistant Organisms: None Reported Past Surgical History: Hernia Repair, Hysterectomy Additional Past Surgical History / Comment(s): cervical fusion, Past Anesthesia/Blood Transfusion Reactions: No Reported Reaction Past Psychological History: Anxiety, Depression, Panic Disorder Smoking Status: Current every day smoker Past Alcohol Use History: None Reported Past Drug Use History: None Reported - Past Family History Mother Family Medical History: Cancer Medications and Allergies Home Medications Medication Instructions Recorded Confirmed Type DULoxetine HCL [Cymbalta] 120 mg PO DAILY 01/15/15 01/28/23 History Mirtazapine [Remeron] 45 mg PO HS 01/15/15 01/28/23 History clonazePAM [KlonoPIN] 1 mg PO BID 01/24/18 01/28/23 History oxyCODONE-APAP 10-325MG [Percocet 1 tab PO BID 01/24/18 01/28/23 History 10-325 mg] Amiodarone [Cordarone] 200 mg PO DAILY 01/28/23 01/28/23 History Apixaban [Eliquis] 5 mg PO BID 01/28/23 01/28/23 History Cyclobenzaprine [Flexeril] 5 mg PO BID PRN 01/28/23 01/28/23 History Famotidine [Pepcid] 20 mg PO BID 01/28/23 01/28/23 History Metoprolol Succinate (ER) [Toprol 50 mg PO DAILY 01/28/23 01/28/23 History Xl] Morphine Sulfate ER [Ms Contin] 30 mg PO Q12HR 01/28/23 01/28/23 History Potassium Chloride ER [K-Dur 20] 20 meq PO DAILY 01/28/23 01/28/23 History Spironolactone [Aldactone] 25 mg PO DAILY 01/28/23 01/28/23 History Suvorexant [Belsomra] 20 mg PO HS 01/28/23 01/28/23 History Torsemide [Demadex] 40 mg PO BID 01/28/23 01/28/23 History dilTIAZem HCL [dilTIAZem HCL 24Hr 120 mg PO DAILY 01/28/23 01/28/23 History ER (Xr)] Allergies Allergy/AdvReac Type Severity Reaction Status Date / Time No Known Allergies Allergy Verified 01/28/23 14:43 Physical Exam Vitals: Vital Signs Temp Pulse Resp BP Pulse Ox FiO2 01/29/23 13:30 99.1 F 115 H 24 120/98 94 L 01/29/23 12:55 100 01/29/23 08:23 36 01/29/23 08:18 104 H 01/29/23 08:07 100 32 01/29/23 07:00 97.4 F L 112 H 24 112/88 95 01/29/23 04:25 99 14 112/88 98 01/29/23 03:53 32 01/29/23 01:00 101 H 15 113/70 92 L 01/29/23 00:15 32 01/28/23 22:30 92 14 104/70 90 L 01/28/23 20:47 94 18 115/81 92 L 01/28/23 20:31 87 01/28/23 20:16 92 32 01/28/23 18:41 89 18 115/75 01/28/23 17:34 32 01/28/23 17:19 82 24 90 L 01/28/23 16:30 28 01/28/23 16:29 28 Intake and Output 01/29/23 01/29/23 01/29/23 06:59 14:59 22:59 Output Total 500 Balance -500 Output: Urine 500 Uretheral (Weaver) 500 GENERAL EXAM: Arousable, drowsy 67-year-old female, on BiPAP, comfortable in no apparent distress. HEAD: Normocephalic. EYES: Normal reaction of pupils, equal size. NOSE: Clear with pink turbinates. THROAT: No erythema or exudates. NECK: No masses, no JVD. CHEST: No chest wall deformity. LUNGS: Equal air entry with crackles in the posterior bases. CVS: S1 and S2 normal with no audible murmur, regular rhythm. ABDOMEN: No hepatosplenomegaly, normal bowel sounds, no guarding or rigidity. SPINE: No scoliosis or deformity SKIN: No rashes CENTRAL NERVOUS SYSTEM: No focal deficits, tone is normal in all 4 extremities. EXTREMITIES: There is no peripheral edema. No clubbing, no cyanosis. Peripheral pulses are intact. Results - Laboratory Findings CBC and BMP: 01/29/23 09:00 01/29/23 09:00 ABG ABG pH 7.23 (7.35-7.45) L 01/29/23 09:25 ABG pCO2 63 mmHg (35-45) H 01/29/23 09:25 ABG pO2 69 mmHg (83-108) L 01/29/23 09:25 ABG O2 Saturation 90.8 % (94-97) L 01/29/23 09:25 PT/INR, D-dimer PT 16.1 sec (9.0-12.0) H 01/29/23 09:00 INR 1.6 (<1.2) H 01/29/23 09:00 Abnormal lab findings: Abnormal Labs 01/28/23 01/28/23 01/28/23 15:39 15:39 15:39 WBC 22.5 H Hgb 8.6 L Hct 32.4 L MCV 78.4 L MCH 20.8 L MCHC 26.5 L RDW 18.5 H Plt Count 681 H Neutrophils # Neutrophils # (Manual) 20.40 H Lymphocytes # Lymphocytes # (Manual) 0.90 L Monocytes # (Manual) 1.58 H Nucleated RBCs 2 H PT 15.6 H INR 1.6 H ABG pH ABG pCO2 ABG pO2 ABG HCO3 ABG Total CO2 ABG O2 Saturation Sodium Potassium Chloride BUN Creatinine Glucose POC Glucose (mg/dL) Calcium Delta Bilirubin AST ALT Ammonia Creatine Kinase Troponin I Urine Opiates Screen Detected H Ur Oxycodone Screen Detected H U Tricyclic Antidepress Detected H 01/28/23 01/28/23 01/28/23 15:39 15:39 16:00 WBC Hgb Hct MCV MCH MCHC RDW Plt Count Neutrophils # Neutrophils # (Manual) Lymphocytes # Lymphocytes # (Manual) Monocytes # (Manual) Nucleated RBCs PT INR ABG pH 7.05 L* ABG pCO2 100 H* ABG pO2 38 L* ABG HCO3 27 H ABG Total CO2 30 H ABG O2 Saturation 49.8 L Sodium 132 L Potassium 6.0 H Chloride 88 L BUN 62 H Creatinine 3.65 H Glucose 108 H POC Glucose (mg/dL) Calcium 8.0 L Delta Bilirubin AST 3376 H ALT 2982 H Ammonia Creatine Kinase Troponin I 0.073 H* Urine Opiates Screen Ur Oxycodone Screen U Tricyclic Antidepress 01/28/23 01/28/23 01/29/23 16:15 17:23 09:00 WBC 18.2 H Hgb 8.3 L Hct 30.2 L MCV 76.0 L MCH 20.8 L MCHC 27.4 L RDW 18.8 H Plt Count 605 H Neutrophils # 16.5 H Neutrophils # (Manual) Lymphocytes # 0.9 L Lymphocytes # (Manual) Monocytes # (Manual) Nucleated RBCs PT INR ABG pH 7.11 L* ABG pCO2 85 H* ABG pO2 56 L* ABG HCO3 27 H ABG Total CO2 30 H ABG O2 Saturation 78.9 L Sodium Potassium Chloride BUN Creatinine Glucose POC Glucose (mg/dL) 119 H Calcium Delta Bilirubin AST ALT Ammonia Creatine Kinase Troponin I Urine Opiates Screen Ur Oxycodone Screen U Tricyclic Antidepress 01/29/23 01/29/23 01/29/23 09:00 09:00 09:00 WBC Hgb Hct MCV MCH MCHC RDW Plt Count Neutrophils # Neutrophils # (Manual) Lymphocytes # Lymphocytes # (Manual) Monocytes # (Manual) Nucleated RBCs PT 16.1 H INR 1.6 H ABG pH ABG pCO2 ABG pO2 ABG HCO3 ABG Total CO2 ABG O2 Saturation Sodium 129 L Potassium 6.4 H* Chloride 87 L BUN 82 H Creatinine 4.25 H Glucose 127 H POC Glucose (mg/dL) Calcium 6.8 L Delta Bilirubin 0.7 H AST 4961 H ALT 4711 H Ammonia 40 H Creatine Kinase 471 H Troponin I Urine Opiates Screen Ur Oxycodone Screen U Tricyclic Antidepress 01/29/23 09:25 WBC Hgb Hct MCV MCH MCHC RDW Plt Count Neutrophils # Neutrophils # (Manual) Lymphocytes # Lymphocytes # (Manual) Monocytes # (Manual) Nucleated RBCs PT INR ABG pH 7.23 L ABG pCO2 63 H ABG pO2 69 L ABG HCO3 26 H ABG Total CO2 28 H ABG O2 Saturation 90.8 L Sodium Potassium Chloride BUN Creatinine Glucose POC Glucose (mg/dL) Calcium Delta Bilirubin AST ALT Ammonia Creatine Kinase Troponin I Urine Opiates Screen Ur Oxycodone Screen U Tricyclic Antidepress - Diagnostic Findings Chest x-ray: image reviewed Assessment and Plan Assessment: Altered mental status secondary to hypercapnic respiratory failure secondary to possible extra Klonopin use as well as an acute exacerbation of diastolic congestive heart failure Acute hypoxemic and hypercapnic respiratory failure secondary to above Metabolic encephalopathy secondary to above Leukocytosis Anemia Acute kidney injury Hyperkalemia Elevated liver enzymes Elevated ammonia level Troponin leak Urine drug screen is positive for opiates, oxycodone and tricyclic antidepressants History of fibromyalgia History of anxiety/depression/panic disorder Hyperlipidemia Hypertension Memory impairment Chronic and ongoing tobacco dependence Chronic atrial fibrillation anticoagulant with Eliquis Plan: The patient was seen and evaluated Chest x-ray, labs and medications reviewed Avoid hypnotics, sedatives, narcotics Titrate down the FiO2 as tolerated Attempt to take off BiPAP, transition to nasal cannula Continue IV diuretics Check a pro-calcitonin Correct electrolyte imbalance Lactulose 3 times a day We will continue to follow and make further recommendations based on her clinical status I have personally seen and examined the patient, performed the documentation and the assessment and plan as written. Number of minutes spent on the visit: 20.
[2023-01-29 18:48] LABS: African American GFR (CKD) 11 (>60 ml/min/1.73 sqM); Anion Gap 18 mmol/L; Blood Urea Nitrogen 95 mg/dL (7-17); Calcium 7.2 mg/dL (8.4-10.2); Carbon Dioxide 26 mmol/L (22-30); Chloride 87 mmol/L (98-107); Glucose 142 mg/dL (74-99); Non-African American GFR(CKD) 10 (>60 ml/min/1.73 sqM); Potassium 5.8 mmol/L (3.5-5.1); Sodium 131 mmol/L (137-145)
[2023-01-29] MEDS ORDERED: MIRTAZAPINE 45 MG TABLET PO SCH (21:00)
[2023-01-29] MEDS ORDERED: LACTULOSE 200 GM/300 ML (FROM 1/2 GAL JUG) RECTAL SCH (21:00)
[2023-01-29] MEDS: IOPAMIDOL CONTRAST (ORAL USE) VIAL PO PRN ×2 (21:33→22:39)
[2023-01-29 22:40] LABS: % Iron Saturation 2.97 (12.00-45.00)
[2023-01-30] MEDS: PANTOPRAZOLE 40 MG/10 ML VIAL IVP SCH ×3 (00:55→21:48)
[2023-01-30] MEDS: methylPREDNISolone SOD SUCCI 125 MG/2 ML VIAL IV SCH ×2 (05:49→11:45)
[2023-01-30] MEDS ORDERED: PIPERACILLIN-TAZOBACTAM 3.375 GM in SODIUM CHLORIDE 0.9% 100 ML IVPB STA (06:09)
[2023-01-30] MEDS: IPRATROPIUM-ALBUTEROL 3 ML NEB INHALATION SCH ×4 (07:28→20:58)
[2023-01-30] MEDS: SYMBICORT 160-4.5 MCG INHALER INHALATION SCH ×2 (07:29→20:58)
--- NOTE | 2023-01-30 08:25 | CT ---
EXAMINATION TYPE: CT abdomen pelvis wo con DATE OF EXAM: 01/30/2023 COMPARISON: None HISTORY: liver enz high , possible sepsis CT DLP: 1826 mGycm Examination of the solid and hollow viscera is limited given the lack of contrast. Unenhanced CT of t he abdomen and pelvis was performed. FINDINGS: LUNG BASES: No evidence for nodule. There is evidence of cardiomegaly. Basilar atelectasis noted. LIVER/GB: The gallbladder is unremarkable. There is underlying hepatomegaly. No space-occupying hepat ic lesion. PANCREAS: No pancreatic mass identified. There is mild edema and stranding about the pancreas. Correl ate for pancreatitis mild degree with amylase and lipase. SPLEEN: No evidence for splenomegaly. No intrasplenic lesions seen. ADRENALS: No adrenal nodules identified. No evidence for thickening. KIDNEYS: No evidence for renal mass. No nephrolithiasis. No hydronephrosis. BOWEL: There is evidence of colonic dilatation measuring up to 7.6 cm. Debris is seen throughout the colon. Small bowel is of normal caliber. The colon normalizes at the distal transverse colon. Nonvisu alization of the appendix. No free air or abscess. Lymph nodes: No evidence for adenopathy greater than 1 cm. Abdominal aorta: Atheromatous changes seen. No evidence for aneurysm. Genital organs: Uterus is a surgically absent. Other: No significant abnormality. IMPRESSION: 1. Correlate for mild pancreatitis. 2. Colonic dilatation with debris seen within the colon. Correlate for colonic ileus. Progress studie s are advised.
[2023-01-30] MEDS ORDERED: FAMOTIDINE 20 MG TAB PO SCH (09:00)
[2023-01-30] MEDS: FUROSEMIDE 10 MG/ML 4 ML VIAL IV SCH ×2 (09:09→16:04)
[2023-01-30] MEDS: APIXABAN 5 MG TAB PO SCH ×2 (09:43→23:29)
[2023-01-30] MEDS: clonazePAM 1 MG TAB PO SCH (09:43)
[2023-01-30] MEDS: LACTULOSE 20 GM/30 ML CUP PO SCH ×3 (09:43→23:29)
[2023-01-30] MEDS: DOXYCYCLINE 100 MG in SODIUM CHLORIDE 0.9% 100 ML IVPB SCH ×2 (09:43→21:48)
--- NOTE | 2023-01-30 09:43 | P.PN ---
Subjective Patient is seen for follow-up for acute kidney injury and hyperkalemia. She is currently being diuresed. Admitted with mental status changes and hypercapnic respiratory failure. Currently maintained on BiPAP and improved. This morning mentation is slightly better. 24 hour urine output at 2.2 L Maintained on BiPAP Labs are pending from today. Objective - Vital Signs Vital signs: Vital Signs Temp 97.9 F 01/30/23 04:00 Pulse 80 01/30/23 07:31 Resp 17 01/30/23 04:00 BP 141/67 01/30/23 04:00 Pulse Ox 92 L 01/30/23 04:00 FiO2 40 01/30/23 07:31 Intake & Output 01/29/23 01/30/23 01/30/23 18:59 06:59 18:59 Output Total 2220 Balance -2220 Weight 98 kg Output: Urine 2220 Other: Voiding Method Indwelling Catheter - Exam Patient is awake, confused and not able to communicate much Examination of the heart S1 and S2 Examination of the lungs bilateral breath sounds are heard Abdomen is soft obese nontender Examination of the lower extremities shows edema 1+ bilaterally with chronic skin changes - Labs CBC & Chem 7: 01/29/23 09:00 01/29/23 18:12 Labs: Abnormal Lab Results - Last 24 Hours (Table) 01/29/23 01/29/23 01/29/23 Range/Units 09:00 09:00 09:00 Neutrophils # 16.5 H (1.3-7.7) k/uL Lymphocytes # 0.9 L (1.0-4.8) k/uL Sodium 129 L (137-145) mmol/L Potassium 6.4 H* (3.5-5.1) mmol/L Chloride 87 L (98-107) mmol/L BUN 82 H (7-17) mg/dL Creatinine 4.25 H (0.52-1.04) mg/dL Glucose 127 H (74-99) mg/dL Calcium 6.8 L (8.4-10.2) mg/dL Iron (50-170) UG/DL TIBC (228-460) UG/DL % Saturation (12.00-45.00) Transferrin (204.0-354.0) mg/dL Delta Bilirubin 0.7 H (0.0-0.2) mg/dL AST 4961 H (14-36) U/L ALT 4711 H (4-34) U/L Creatine Kinase 471 H (30-135) U/L Procalcitonin 0.77 H (0.02-0.09) ng/mL 01/29/23 01/29/23 Range/Units 09:00 18:12 Neutrophils # (1.3-7.7) k/uL Lymphocytes # (1.0-4.8) k/uL Sodium 131 L (137-145) mmol/L Potassium 5.8 H (3.5-5.1) mmol/L Chloride 87 L (98-107) mmol/L BUN 95 H (7-17) mg/dL Creatinine 4.49 H (0.52-1.04) mg/dL Glucose 142 H (74-99) mg/dL Calcium 7.2 L (8.4-10.2) mg/dL Iron 16 L (50-170) UG/DL TIBC 539 H (228-460) UG/DL % Saturation 2.97 L (12.00-45.00) Transferrin 385.0 H (204.0-354.0) mg/dL Delta Bilirubin (0.0-0.2) mg/dL AST (14-36) U/L ALT (4-34) U/L Creatine Kinase (30-135) U/L Procalcitonin (0.02-0.09) ng/mL Assessment and Plan Assessment: 1. Acute kidney injury mostly ATN. Indwelling Weaver catheter present. UA is completely benign. No evidence of hydronephrosis on abdominal CT. 2. Mental status changes secondary to hypercapnic respiratory failure 3. Respiratory acidosis and hypercapnic respiratory failure status post BiPAP 4. Hyperkalemia associated with acute kidney injury, rule out GI bleed. Aldactone on hold 5. Anemia with severe iron deficiency. No active bleeding noted. Consider GI bleed given the hyperkalemia and low hemoglobin 6. Hyponatremia, hypervolemic 7. Hypervolemia/volume overload 8. Colonic dilatation, ileus Plan: Continue with IV Lasix Follow-up on labs from today Continue to hold Aldactone Repeat labs this evening. Iv iron Avoid nephrotoxic agents
[2023-01-30] MEDS: DILTIAZEM CD 120 MG CAP.ER.24H PO SCH (09:44)
[2023-01-30 09:53] LABS: African American GFR (CKD) 11 (>60 ml/min/1.73 sqM); Alkaline Phosphatase 99 U/L (38-126); Anion Gap 18 mmol/L; Bilirubin, Delta 0.6 mg/dL (0.0-0.2); Bilirubin,Unconjugated 0.4 mg/dL (0.0-1.1); Carbon Dioxide 25 mmol/L (22-30); Chloride 87 mmol/L (98-107); Glucose 127 mg/dL (74-99); Non-African American GFR(CKD) 10 (>60 ml/min/1.73 sqM); Potassium 5.8 mmol/L (3.5-5.1); Sodium 130 mmol/L (137-145); Total Protein 6.8 g/dL (6.3-8.2)
[2023-01-30 10:18] LABS: Anisocytosis Slight; HCT 28.6 % (34.0-46.0); HGB 8.2 gm/dL (11.4-16.0); Hypochromasia Marked; MCHC 28.8 g/dL (31.0-37.0); MCV 72.7 fL (80.0-100.0); Mean Platelet Volume 8.8; Microcytosis Marked; Platelet Count 542 k/uL (150-450); Poikilocytosis Slight; RBC 3.94 m/uL (3.80-5.40); RDW 19.5 % (11.5-15.5)
[2023-01-30 10:48] LABS: Blood Urea Nitrogen 105 mg/dL (7-17)
[2023-01-30 10:49] LABS: AST >1500 U/L (14-36)
[2023-01-30 10:53] LABS: Band Neutrophils % 1 %; Basophils # (M) 0.16 k/uL (0-0.2); Lymphocytes # (M) 0.16 k/uL (1.0-4.8); Monocytes # (M) 0.47 k/uL (0-1.0); Myelocytes # (M) 0.16 k/uL (0); Myelocytes % 1 %; Neutrophils % (M) 95 %; Nucleated Red Blood Cells 5 /100 WBC (0-0); Total Cells Counted 200; WBC 15.7 k/uL (3.8-10.6)
[2023-01-30 10:54] LABS: Target Cells Present
[2023-01-30 11:04] LABS: ABG Base Excess 2.9 mmol/L; ABG HCO3 31 mmol/L (21-25); ABG Oxygen Saturation 82.2 % (94-97); ABG PH 7.22 (7.35-7.45); ABG TCO2 33 mmol/L (19-24); Allen Test Performed? Yes
[2023-01-30 11:06] LABS: ABG PCO2 74 mmHg (35-45); ABG PO2 56 mmHg (83-108)
--- NOTE | 2023-01-30 11:40 | P.PN ---
Subjective This is a pleasant 67 years old female with past medical history of CVA/TIA, Fibromyalgia, Hyperlipidemia, Hypertension, Memory Impairment, Osteoarthritis ,chronic neck and back pain, ddd, ARTHRITIS, USES CANE NEEDED FOR FIBROMYALGIA, s/p cervical fusion,, Anxiety, Depression, Panic Disorder, Current every day smoker Patient presents because of generalized weakness and drowsiness and inability to get up. Patient also was confused. Took extra dose of Klonopin that does not belong to her Results the patient she was looking tired, she was on BiPAP machine which limits her ability to provide information however she follow commands appropriately. She can't tell she is in the hospital the year and the name of the president. She says she's been having some difficulty breathing for around 2 days, no report of coughing. When I asked her she denies chest pain or abdominal pain. Her abdomen looks soft. No vomiting or diarrhea. No weakness or numbness. patient is afebrile, mildly tachycardic and hypoxic and she was saturating 81-91 on 4 L oxygen via nasal cannula patient currently on BiPAP with improved saturation patient has significant leukocytosis of 22.5, hemoglobin 8.6. Platelet count 681. INR 1.6. PH 7.11, pCO2 elevated 85 nothing by mouth to allow 56. Sodium 132, potassium 6, creatinine 3.6, previously was within the reference range. Bilirubin is in within the reference range at 1.1 but AST elevated 3376 and ALT 2982 area Troponin is elevated 0.073. ProBNP is high 11 700 urine analysis is negative. Urine drug screen is positive for opiates, oxycodone and tricyclic antidepressant while serum alcohol less than 10. Chest x-ray: Cardiomegaly with possible pulmonary congestion CT of the brain: No acute process. Atrophic changes EKG: Atrial fibrillation with a rate of 83 with right axis deviation and right bundle branch block and QTC 474 patient was started on Solu-Medrol, IV Lasix 01/30/2023 Patient still confused, she still on BiPAP setting of 15/5 with FiO2 of 45% She still have evidence of acidosis with pH of 7.2, pCO2 worse little today more than 70 compared to 60 yesterday. Her oxygen saturation is acceptable, she is afebrile and the rest of vitals stable although she still tachycardic at 111 Her abdomen looks mildly distended but soft area. There is decreased air entry on both sides no wheezing. No leg swelling. Pupils are equal and reactive to light. Her leukocytosis is improved to to 15,000, hemoglobin is stable at 8.2, INR 1.6. Creatinine is stable at 4.4 which is elevated. Liver enzymes elevated, bilirubin is within the reference range. When he is for the patient was placed on lactulose. Production calcitonin is elevated at 0.77. Creatinine Is 471. Echocardiogram: Showed severe right ventricular dilatation with moderate pulmonary hypertension CAT scan of the abdomen and pelvis without contrast showing ileus and mild pancreatitis. Surgical consult is requested. Prognosis is guarded I talked to the Mr. Dunn over the phone and updated the case with him, he says that the patient was sick for the last 2-3 days before hospitalization that she was sleeping a lot. I asked him what her klonopin and he said he takes it for anxiety note for seizure. because of her Change in mentation we going to taper down her klonopin Down to 0.5 daily. Active Medications Generic Name Dose Route Start Last Admin Trade Name Kylie PRN Reason Stop Dose Admin Acetaminophen 650 mg 01/28/23 17:56 Acetaminophen Tab 325 Mg Tab PO Q4HR PRN Mild Pain or Fever > 100.5 Albuterol/Ipratropium 3 ml 01/28/23 20:00 01/30/23 10:58 Ipratropium-Albuterol 3 Ml Neb INHALATION 3 ml RT-QID ISIDORO Administration Albuterol/Ipratropium 3 ml 01/28/23 17:56 Ipratropium-Albuterol 3 Ml Neb INHALATION RT-Q2H PRN Shortness Of Breath Or Wheezing Apixaban 5 mg 01/29/23 09:00 01/30/23 09:43 Apixaban 5 Mg Tab PO 5 mg BID ISIDORO Administration Protocol Budesonide/Formoterol Fumarate 2 puff 01/29/23 09:00 01/30/23 07:29 Symbicort 160-4.5 Mcg Inhaler INHALATION 2 puff RT-BID ISIDORO Administration Clonazepam 0.5 mg 01/31/23 09:00 Clonazepam 0.5 Mg Tab PO DAILY ISIDORO Diltiazem HCl 120 mg 01/29/23 09:00 01/30/23 09:44 Diltiazem Cd 120 Mg Cap.Er.24h PO 120 mg DAILY ISIDORO Administration Duloxetine HCl 120 mg 01/29/23 09:00 01/29/23 08:14 Duloxetine Hcl 60 Mg Capsule.Dr PO 120 mg DAILY ISIDORO Administration Furosemide 40 mg 01/29/23 00:00 01/30/23 09:09 Furosemide 10 Mg/Ml 4 Ml Vial IV 40 mg Q8HR ISIDORO Administration Doxycycline Hyclate 100 mg/ 100 mls @ 100 mls/hr 01/29/23 09:30 01/30/23 09:43 Sodium Chloride IVPB 100 mls/hr Q12HR ISIDORO Administration Protocol Piperacillin Sod/Tazobactam 100 mls @ 25 mls/hr 01/30/23 22:00 Sod 3.375 gm/ Sodium Chloride IVPB Q8H ISIDORO Protocol Ferric Sodium Gluconate 125 mg 110 mls @ 100 mls/hr 01/30/23 09:45 / Sodium Chloride IVPB DAILY ISIDORO Lactulose 20 gm 01/29/23 16:00 01/30/23 09:43 Lactulose 20 Gm/30 Ml Cup PO 20 gm TID ISIDORO Administration Methylprednisolone Sodium Succinate 60 mg 01/29/23 00:00 01/30/23 05:49 Methylprednisolone Sod Succi 125 Mg/2 Ml Vial IV 60 mg Q6HR ISIDORO Administration Metoprolol Succinate 50 mg 01/29/23 09:00 01/29/23 10:07 Metoprolol Succinate (Er) 50 Mg Tab.Er.24h PO 50 mg DAILY ISIDORO Administration Mirtazapine 45 mg 01/29/23 21:00 01/29/23 21:33 Mirtazapine 45 Mg Tablet PO 45 mg HS ISIDORO Administration Naloxone HCl 0.2 mg 01/28/23 17:56 Naloxone 0.4 Mg/Ml 1 Ml Vial IVP Q2M PRN Opioid Reversal Pantoprazole Sodium 40 mg 01/29/23 23:15 01/30/23 09:43 Pantoprazole 40 Mg/10 Ml Vial IVP 40 mg BID ISIDORO Administration Objective - Vital Signs Vital signs: Vital Signs Temp 97.9 F 01/30/23 08:10 Pulse 111 H 01/30/23 08:10 Resp 17 01/30/23 08:10 BP 140/70 01/30/23 08:10 Pulse Ox 95 01/30/23 08:10 FiO2 45 01/30/23 11:10 Intake & Output 01/29/23 01/30/23 01/30/23 18:59 06:59 18:59 Output Total 2220 Balance -2220 Weight 98 kg Output: Urine 2220 Other: Voiding Method Indwelling Catheter Indwelling Catheter - Exam -GENERAL: The patient is alert and oriented x3, tired, she follows commands, not in any acute distress. Well developed, well nourished. HEENT: Pupils are round and equally reacting to light. EOMI. No scleral icterus. No conjunctival pallor. Normocephalic, atraumatic. No pharyngeal erythema. No thyromegaly. CARDIOVASCULAR: S1 and S2 present. No murmurs, rubs, or gallops. -PULMONARY: Decreased air entry in both sides, no wheezing , no crackles. On BiPAP ABDOMEN: Soft, nontender, nondistended, normoactive bowel sounds. No palpable organomegaly. MUSCULOSKELETAL: No joint swelling or deformity. EXTREMITIES: No cyanosis, clubbing, or pedal edema. NEUROLOGICAL: Gross neurological examination did not reveal any focal deficits. SKIN: No rashes. no petechiae. - Labs CBC & Chem 7: 01/30/23 08:53 01/30/23 08:53 Labs: Abnormal Lab Results - Last 24 Hours (Table) 01/29/23 01/29/23 01/29/23 Range/Units 09:00 09:00 18:12 WBC (3.8-10.6) k/uL Hgb (11.4-16.0) gm/dL Hct (34.0-46.0) % MCV (80.0-100.0) fL MCH (25.0-35.0) pg MCHC (31.0-37.0) g/dL RDW (11.5-15.5) % Plt Count (150-450) k/uL Neutrophils # (Manual) (1.3-7.7) k/uL Lymphocytes # (Manual) (1.0-4.8) k/uL Myelocytes # (Manual) (0) k/uL Nucleated RBCs (0-0) /100 WBC ABG pH (7.35-7.45) ABG pCO2 (35-45) mmHg ABG pO2 (83-108) mmHg ABG HCO3 (21-25) mmol/L ABG Total CO2 (19-24) mmol/L ABG O2 Saturation (94-97) % Sodium 131 L (137-145) mmol/L Potassium 5.8 H (3.5-5.1) mmol/L Chloride 87 L (98-107) mmol/L BUN 95 H (7-17) mg/dL Creatinine 4.49 H (0.52-1.04) mg/dL Glucose 142 H (74-99) mg/dL Calcium 7.2 L (8.4-10.2) mg/dL Iron 16 L (50-170) UG/DL TIBC 539 H (228-460) UG/DL % Saturation 2.97 L (12.00-45.00) Transferrin 385.0 H (204.0-354.0) mg/dL Delta Bilirubin (0.0-0.2) mg/dL AST (14-36) U/L Procalcitonin 0.77 H (0.02-0.09) ng/mL 01/30/23 01/30/23 01/30/23 Range/Units 08:53 08:53 11:02 WBC 15.7 H (3.8-10.6) k/uL Hgb 8.2 L (11.4-16.0) gm/dL Hct 28.6 L (34.0-46.0) % MCV 72.7 L (80.0-100.0) fL MCH 21.0 L (25.0-35.0) pg MCHC 28.8 L (31.0-37.0) g/dL RDW 19.5 H (11.5-15.5) % Plt Count 542 H (150-450) k/uL Neutrophils # (Manual) 15.00 H (1.3-7.7) k/uL Lymphocytes # (Manual) 0.16 L (1.0-4.8) k/uL Myelocytes # (Manual) 0.16 H (0) k/uL Nucleated RBCs 5 H (0-0) /100 WBC ABG pH 7.22 L (7.35-7.45) ABG pCO2 74 H* (35-45) mmHg ABG pO2 56 L* (83-108) mmHg ABG HCO3 31 H (21-25) mmol/L ABG Total CO2 33 H (19-24) mmol/L ABG O2 Saturation 82.2 L (94-97) % Sodium 130 L (137-145) mmol/L Potassium 5.8 H (3.5-5.1) mmol/L Chloride 87 L (98-107) mmol/L BUN 105 H* (7-17) mg/dL Creatinine 4.41 H (0.52-1.04) mg/dL Glucose 127 H (74-99) mg/dL Calcium 8.0 L (8.4-10.2) mg/dL Iron (50-170) UG/DL TIBC (228-460) UG/DL % Saturation (12.00-45.00) Transferrin (204.0-354.0) mg/dL Delta Bilirubin 0.6 H (0.0-0.2) mg/dL AST >1500 H (14-36) U/L Procalcitonin (0.02-0.09) ng/mL Assessment and Plan Assessment: Acute COPD exacerbation Acute hypoxemic hypercapnic respiratory failure Acute respiratory acidosis combined with metabolic acidosis Metabolic/toxic encephalopathy, Acute renal failure with hyperkalemia, present on admission cute congestive heart failure with echo shows severely dilated right ventricle and right atrium transamnitis Atrial fibrillation Possible colitis with ileus and mild degree pancreatitis Moderate pulmonary hypertension Chronic atrial fibrillation Hypochromic, microcytic anemia History of CVA/TIA Hypertension Hyperlipidemia History of memory impairment History of osteo-arthritis Chronic neck and back pain status post cervical fusion surgery. Anxiety depression and panic disorder, not in active tissue Plan: Continue with IV Lasix Continue with IV Solu-Medrol 60 mg Continue with antibiotics Zosyn and doxycycline Resume home dose of Eliquis, start Protonix. Continue with a breathing treatment of bronchodilator Aldactone on hold Cardiology, pulmonary and nephrology consult on the case Continue with Weaver catheter Labs and medication were reviewed.. Continue same treatment. Continue with symptomatic treatment. Resume home medication. Monitor labs and vitals. DVT and GI prophylaxis. Further recommendations as per clinical course of the patient DVT prophylaxis: Eliquis GI Prophylaxis: Pepcid PT/OT: Pending Prognosis is guarded
[2023-01-30] MEDS: SODIUM FERRIC GLUCONAT-SUCROSE 125 MG in SODIUM CHLORIDE 0.9% 100 ML IVPB SCH (11:45)
--- NOTE | 2023-01-30 12:38 | P.GSCN ---
History of Present Illness Consult date: 01/30/23 History of present illness: CHIEF COMPLAINT: Pancreatitis HISTORY OF PRESENT ILLNESS: The patient is a 67 year old female initially admitted for drowsiness, weakness status post fall. She presented with exacerbation of congestive heart failure. She was just transferred to ICU for troubles with breathing. She is placed on BIPAP. She had diagnostic imaging demonstrating ileus and pancreatitis. General surgery is consulted for ileus/pancreatitis. She denies abdominal pain. PAST MEDICAL HISTORY: See list and reviewed PAST SURGICAL HISTORY: See list and reviewed MEDICATIONS: See list and reviewed ALLERGIES: See list and reviewed SOCIAL HISTORY: See list and reviewed FAMILY HISTORY: See list and reviewed REVIEW OF ORGAN SYSTEMS: CONSTITUTIONAL: No fevers or chills. Morbid obesity, BMI 37.1 EYES: Denies any trouble with vision. No glasses. HEENT: No difficulties with hearing. No nosebleeds. No difficulty swallowing. RESPIRATORY: Has troubles with breathing. CARDIOVASCULAR: Has congestive heart failure. GASTROINTESTINAL: Denies fatty food intolerance. Denies change in bowel habits and gas bloat. Has gastroesophageal reflux disease. GENITOURINARY: Denies any blood in urine or increased urinary frequency. NEUROLOGICAL: Prior CVA/TIA. MUSCULOSKELETAL: Has back pain, stiffness or joint arthritis. Fibromyalgia. Has chronic pain syndrome. SKIN: No current skin cancer. No rash. PSYCHIATRIC: Depressive disorder. Has memory impairment. Has anxiety. Has panic disorder. ENDOCRINE: Denies current thyroid disorders. Denies any blood sugar glucose intolerance. HEME/LYMPHATIC: Denies any lumps and bumps around the neck. No recent deep venous thrombosis. ALLERGY/IMMUNOLOGY: No immunoglobulin therapy. No immune deficiencies. BREAST: Denies current breast lumps, pain or nipple discharge. PHYSICAL EXAM: VITALS: Reviewed CONSTITUTIONAL: Well developed and in no acute distress. EYES: Conjuctivae without sclera icterus. Extraocular movements grossly intact. HEAD, EARS, NOSE, THROAT: Moist buccal mucosa. Head is atraumatic, normocephalic. Hears conversational speech. No nasal drainage. NECK: Supple. No JV distention. No thyroidomegaly. RESPIRATORY: On BiPAP CARDIOVASCULAR: Palpable 2+ radial pulses. ABDOMEN: Obese. Nontender. Mild distention. LYMPH: No neck lymphadenopathy. MUSCULOSKELETAL: No clubbing cyanosis or edema SKIN: Warm and well perfused with good skin turgor. NEUROLOGIC: Cranial nerves II through XII grossly intact. No focal or lateralizing signs. PSYCH: Lethargic. Awakens to voice. CLINCAL LABS: Reviewed. WBC elevated at 15,000. Hemoglobin 8.2, anemia. Potassium elevated at 6.4. Creatinine elevated 4.2. Liver enzymes elevated over 4000. Elevated ammonia levels IMAGING: Independently reviewed. Ultrasound of the abdomen reviewed demonstrates gallbladder within normal limits. No evidence of stones or pericholecystic fluid. This is my independent interpretation. CT of the abdomen and pelvis reviewed demonstrates cardiomegaly. No free air or bowel obstruction. Moderate colonic distention. Small bowel within normal limits. This my independent interpretation. RADIOLOGY: Report reviewed. CT of the abdomen and pelvis demonstrates mild pancreatitis. Colonic ileus. ASSESSMENT: 1. Pancreatitis her computed tomography scan 2. Ileus 3. Leukocytosis 4. Anemia 5. Hyperkalemia 6. Acute kidney failure 7. Elevated LFTs 8. Liver shock 9. Metabolic encephalopathy PLAN: 1. Clinical picture consistent with liver shock with elevated LFTs. Monitor LFTs 2. Radiological presentation ileus however abdomen is nontender. Recommend nothing by mouth. Conservative management. 3. Avoid nephrotoxic agents and hepatic toxic agents. 4. May benefit from repeat abdominal x-ray pending clinical course ADVANCE DIRECTIVE: Thank you for this kind consultation. Past Medical History Past Medical History: CVA/TIA, Fibromyalgia, Hyperlipidemia, Hypertension, Memory Impairment, Osteoarthritis (OA) Additional Past Medical History / Comment(s): chronic neck and back pain, ddd, ARTHRITIS, USES CANE NEEDED FOR FIBROMYALGIA History of Any Multi-Drug Resistant Organisms: None Reported Past Surgical History: Hernia Repair, Hysterectomy Additional Past Surgical History / Comment(s): cervical fusion, Past Anesthesia/Blood Transfusion Reactions: No Reported Reaction Past Psychological History: Anxiety, Depression, Panic Disorder Smoking Status: Former smoker Past Alcohol Use History: None Reported Additional Past Alcohol Use History / Comment(s): Smoke 1 PPD since 14. Quit 1.5 years ago. Past Drug Use History: None Reported - Past Family History Mother Family Medical History: Cancer Medications and Allergies Home Medications Medication Instructions Recorded Confirmed Type DULoxetine HCL [Cymbalta] 120 mg PO DAILY 01/15/15 01/28/23 History Mirtazapine [Remeron] 45 mg PO HS 01/15/15 01/28/23 History clonazePAM [KlonoPIN] 1 mg PO BID 01/24/18 01/28/23 History oxyCODONE-APAP 10-325MG [Percocet 1 tab PO BID 01/24/18 01/28/23 History 10-325 mg] Amiodarone [Cordarone] 200 mg PO DAILY 01/28/23 01/28/23 History Apixaban [Eliquis] 5 mg PO BID 01/28/23 01/28/23 History Cyclobenzaprine [Flexeril] 5 mg PO BID PRN 01/28/23 01/28/23 History Famotidine [Pepcid] 20 mg PO BID 01/28/23 01/28/23 History Metoprolol Succinate (ER) [Toprol 50 mg PO DAILY 01/28/23 01/28/23 History Xl] Morphine Sulfate ER [Ms Contin] 30 mg PO Q12HR 01/28/23 01/28/23 History Potassium Chloride ER [K-Dur 20] 20 meq PO DAILY 01/28/23 01/28/23 History Spironolactone [Aldactone] 25 mg PO DAILY 01/28/23 01/28/23 History Suvorexant [Belsomra] 20 mg PO HS 01/28/23 01/28/23 History Torsemide [Demadex] 40 mg PO BID 01/28/23 01/28/23 History dilTIAZem HCL [dilTIAZem HCL 24Hr 120 mg PO DAILY 01/28/23 01/28/23 History ER (Xr)] Allergies Allergy/AdvReac Type Severity Reaction Status Date / Time No Known Allergies Allergy Verified 01/28/23 14:43 Surgical - Exam Vital Signs Temp Pulse Resp BP Pulse Ox 97.8 F 104 H 18 108/91 91 L 01/28/23 14:17 01/28/23 14:17 01/28/23 14:17 01/28/23 14:17 01/28/23 14:17 Results - Labs 01/30/23 08:53 01/30/23 08:53 Abnormal Lab Results - Last 24 Hours (Table) 01/29/23 01/29/23 01/29/23 Range/Units 09:00 09:00 18:12 WBC (3.8-10.6) k/uL Hgb (11.4-16.0) gm/dL Hct (34.0-46.0) % MCV (80.0-100.0) fL MCH (25.0-35.0) pg MCHC (31.0-37.0) g/dL RDW (11.5-15.5) % Plt Count (150-450) k/uL Neutrophils # (Manual) (1.3-7.7) k/uL Lymphocytes # (Manual) (1.0-4.8) k/uL Myelocytes # (Manual) (0) k/uL Nucleated RBCs (0-0) /100 WBC ABG pH (7.35-7.45) ABG pCO2 (35-45) mmHg ABG pO2 (83-108) mmHg ABG HCO3 (21-25) mmol/L ABG Total CO2 (19-24) mmol/L ABG O2 Saturation (94-97) % Sodium 131 L (137-145) mmol/L Potassium 5.8 H (3.5-5.1) mmol/L Chloride 87 L (98-107) mmol/L BUN 95 H (7-17) mg/dL Creatinine 4.49 H (0.52-1.04) mg/dL Glucose 142 H (74-99) mg/dL Calcium 7.2 L (8.4-10.2) mg/dL Iron 16 L (50-170) UG/DL TIBC 539 H (228-460) UG/DL % Saturation 2.97 L (12.00-45.00) Transferrin 385.0 H (204.0-354.0) mg/dL Delta Bilirubin (0.0-0.2) mg/dL AST (14-36) U/L Procalcitonin 0.77 H (0.02-0.09) ng/mL 01/30/23 01/30/23 01/30/23 Range/Units 08:53 08:53 11:02 WBC 15.7 H (3.8-10.6) k/uL Hgb 8.2 L (11.4-16.0) gm/dL Hct 28.6 L (34.0-46.0) % MCV 72.7 L (80.0-100.0) fL MCH 21.0 L (25.0-35.0) pg MCHC 28.8 L (31.0-37.0) g/dL RDW 19.5 H (11.5-15.5) % Plt Count 542 H (150-450) k/uL Neutrophils # (Manual) 15.00 H (1.3-7.7) k/uL Lymphocytes # (Manual) 0.16 L (1.0-4.8) k/uL Myelocytes # (Manual) 0.16 H (0) k/uL Nucleated RBCs 5 H (0-0) /100 WBC ABG pH 7.22 L (7.35-7.45) ABG pCO2 74 H* (35-45) mmHg ABG pO2 56 L* (83-108) mmHg ABG HCO3 31 H (21-25) mmol/L ABG Total CO2 33 H (19-24) mmol/L ABG O2 Saturation 82.2 L (94-97) % Sodium 130 L (137-145) mmol/L Potassium 5.8 H (3.5-5.1) mmol/L Chloride 87 L (98-107) mmol/L BUN 105 H* (7-17) mg/dL Creatinine 4.41 H (0.52-1.04) mg/dL Glucose 127 H (74-99) mg/dL Calcium 8.0 L (8.4-10.2) mg/dL Iron (50-170) UG/DL TIBC (228-460) UG/DL % Saturation (12.00-45.00) Transferrin (204.0-354.0) mg/dL Delta Bilirubin 0.6 H (0.0-0.2) mg/dL AST >1500 H (14-36) U/L Procalcitonin (0.02-0.09) ng/mL Diabetes panel 01/29/23 01/30/23 Range/Units 18:12 08:53 Sodium 131 L 130 L (137-145) mmol/L Potassium 5.8 H 5.8 H (3.5-5.1) mmol/L Chloride 87 L 87 L (98-107) mmol/L Carbon Dioxide 26 25 (22-30) mmol/L BUN 95 H 105 H* (7-17) mg/dL Creatinine 4.49 H 4.41 H (0.52-1.04) mg/dL Glucose 142 H 127 H (74-99) mg/dL Calcium 7.2 L 8.0 L (8.4-10.2) mg/dL AST >1500 H (14-36) U/L ALT (4-34) U/L Alkaline Phosphatase 99 (38-126) U/L Total Protein 6.8 (6.3-8.2) g/dL Albumin 4.0 (3.5-5.0) g/dL Calcium panel 01/29/23 01/30/23 Range/Units 18:12 08:53 Calcium 7.2 L 8.0 L (8.4-10.2) mg/dL Albumin 4.0 (3.5-5.0) g/dL Pituitary panel 01/29/23 01/30/23 Range/Units 18:12 08:53 Sodium 131 L 130 L (137-145) mmol/L Potassium 5.8 H 5.8 H (3.5-5.1) mmol/L Chloride 87 L 87 L (98-107) mmol/L Carbon Dioxide 26 25 (22-30) mmol/L BUN 95 H 105 H* (7-17) mg/dL Creatinine 4.49 H 4.41 H (0.52-1.04) mg/dL Glucose 142 H 127 H (74-99) mg/dL Calcium 7.2 L 8.0 L (8.4-10.2) mg/dL Adrenal panel 01/29/23 01/30/23 Range/Units 18:12 08:53 Sodium 131 L 130 L (137-145) mmol/L Potassium 5.8 H 5.8 H (3.5-5.1) mmol/L Chloride 87 L 87 L (98-107) mmol/L Carbon Dioxide 26 25 (22-30) mmol/L BUN 95 H 105 H* (7-17) mg/dL Creatinine 4.49 H 4.41 H (0.52-1.04) mg/dL Glucose 142 H 127 H (74-99) mg/dL Calcium 7.2 L 8.0 L (8.4-10.2) mg/dL Total Bilirubin 1.0 (0.2-1.3) mg/dL AST >1500 H (14-36) U/L ALT (4-34) U/L Alkaline Phosphatase 99 (38-126) U/L Total Protein 6.8 (6.3-8.2) g/dL Albumin 4.0 (3.5-5.0) g/dL
--- NOTE | 2023-01-30 13:57 | P.PN ---
Subjective Progress Note Date: 01/30/23 Principal diagnosis: Acute hypoxic and hypercapnic respiratory failure with acute exacerbation of diastolic congestive heart failure, and acute exacerbation of COPD This is a 67-year-old female with a known history of hypertension, hyperlipidemia, fibromyalgia, CVA/TIA, memory impairment, anxiety/depression/panic disorder, chronic and ongoing tobacco dependence. She was brought into the emergency room by her to start afternoon after finding her to be quite drowsy. He had trouble getting her up. She had trouble bearing her own weight. She was confused. Apparently she had taken extra Klonopin. Computed tomography scan of the brain revealed chronic small vessel ischemic changes without acute intracranial process. Chest x-ray revealed chronic changes but no acute pulmonary disease. Echocardiogram revealed preserved left ventricular systolic function. Severe right ventricular enlargement with moderate pulmonary hypertension. Abdominal ultrasound revealed no acute process. White count 18.2. Hemoglobin 8.3. Platelets 605. Sodium 129. Potassium 6.4. Bicarb 25. BUN 82. Creatinine 4.25. AST 4961. ALT 4711. Ammonia level XL. Creatinine kinase 471. BNP 11,700. Urine drug screen positive for opiates, oxycodone, tricyclic antidepressants. Initial arterial blood gases on 36% FiO2 revealed a P O2 of 38, pCO2 of 100 and a pH of 7.05. She was placed on BiPAP 15/5 and 32% FiO2 and follow-up blood gases revealed a pO2 of 56, pCO2 of 85 and a pH of 7.11. She is seen today in consultation in the emergency department. She is currently resting on a stretcher. Arousable. Not able to give much information. Follow-up arterial blood gases on 36% FiO2 revealed a pO2 of 69, pCO2 of 63 and a pH of 7.23. Patient was reevaluated today on 01/30/2023, patient remains on BiPAP, continues to be confused, she is arousable, but does not seem to be quite alert and oriented. In spite of being on BiPAP for the last 24 hours, repeat ABG on 40% FiO2 with IPAP of 16 and EPAP of 6 showed a pO2 of 56 E. CO2 74 and pH of 7.22 which is clearly a worsening ABG compared to the ABG noted yesterday. With worsening hypoxia worsening hypercapnia and worsening pH. Hence after evaluating the patient I recommended immediate transfer to the ICU and will continue BiPAP, we will check a follow-up chest x-ray, if the patient does not improve much, and we will continue diuretics, may have to consider intubating the patient and placement on mechanical ventilation. Chest x-ray this morning continues to show cardiomegaly and interstitial edema, doubt underlying pneumonia. WBC count today is 15.7 hemoglobin is 8.2 sodium is 130 potassium 5.8 BUN is 105 creatinine 4.41. Liver enzymes are worsening with worsening AST of over 1500, ALT was close to 5000s, CPK is 471 Procalcitonin is 0.77, CT of the abdomen and pelvis showed mild pancreatitis with colonic dilatation suggestive of colonic ileus. Patient was seen by general surgery on consultation for her abnormal CT of the abdomen and pelvis and recommended mostly conservative measures Objective - Vital Signs Vital signs: Vital Signs Temp 98.2 F 01/30/23 11:52 Pulse 107 H 01/30/23 13:00 Resp 12 01/30/23 13:00 BP 149/86 01/30/23 13:00 Pulse Ox 95 01/30/23 13:00 FiO2 45 01/30/23 13:00 Intake & Output 01/29/23 01/30/23 01/30/23 18:59 06:59 18:59 Output Total 2220 700 Balance -2220 -700 Weight 98 kg Output: Urine 2220 700 Other: Voiding Method Indwelling Catheter Indwelling Catheter - Exam Physical Exam: Revealed a 67-year-old female obese, on BiPAP, arousable but she is quite lethargic. Head: Atraumatic, normocephalic. She does have short obese neck. HEENT:[Neck is supple.] [No neck masses.] [No thyromegaly.] [No JVD.] Chest: Extremely diminished breath sound bilaterally no rhonchi no wheezes Cardiac Exam: [Normal S1 and S2, no S3 gallop, no murmur.] Abdomen: [Soft, nontender, no megaly, no rebound, no guarding, normal bowel sounds.] Extremities: [No clubbing, trace of bipedal edema, no cyanosis.] Good pulses bi laterally Neurological Exam: Arousable but she is quite lethargic, and tends to fall asleep easily could not verbalize much. Psychiatric: Depressed mood, flat affect, confused. - Labs CBC & Chem 7: 01/30/23 08:53 01/30/23 08:53 Labs: Abnormal Lab Results - Last 24 Hours (Table) 01/29/23 01/29/23 01/29/23 Range/Units 09:00 09:00 18:12 WBC (3.8-10.6) k/uL Hgb (11.4-16.0) gm/dL Hct (34.0-46.0) % MCV (80.0-100.0) fL MCH (25.0-35.0) pg MCHC (31.0-37.0) g/dL RDW (11.5-15.5) % Plt Count (150-450) k/uL Neutrophils # (Manual) (1.3-7.7) k/uL Lymphocytes # (Manual) (1.0-4.8) k/uL Myelocytes # (Manual) (0) k/uL Nucleated RBCs (0-0) /100 WBC ABG pH (7.35-7.45) ABG pCO2 (35-45) mmHg ABG pO2 (83-108) mmHg ABG HCO3 (21-25) mmol/L ABG Total CO2 (19-24) mmol/L ABG O2 Saturation (94-97) % Sodium 131 L (137-145) mmol/L Potassium 5.8 H (3.5-5.1) mmol/L Chloride 87 L (98-107) mmol/L BUN 95 H (7-17) mg/dL Creatinine 4.49 H (0.52-1.04) mg/dL Glucose 142 H (74-99) mg/dL Calcium 7.2 L (8.4-10.2) mg/dL Iron 16 L (50-170) UG/DL TIBC 539 H (228-460) UG/DL % Saturation 2.97 L (12.00-45.00) Transferrin 385.0 H (204.0-354.0) mg/dL Delta Bilirubin (0.0-0.2) mg/dL AST (14-36) U/L Procalcitonin 0.77 H (0.02-0.09) ng/mL 01/30/23 01/30/23 01/30/23 Range/Units 08:53 08:53 11:02 WBC 15.7 H (3.8-10.6) k/uL Hgb 8.2 L (11.4-16.0) gm/dL Hct 28.6 L (34.0-46.0) % MCV 72.7 L (80.0-100.0) fL MCH 21.0 L (25.0-35.0) pg MCHC 28.8 L (31.0-37.0) g/dL RDW 19.5 H (11.5-15.5) % Plt Count 542 H (150-450) k/uL Neutrophils # (Manual) 15.00 H (1.3-7.7) k/uL Lymphocytes # (Manual) 0.16 L (1.0-4.8) k/uL Myelocytes # (Manual) 0.16 H (0) k/uL Nucleated RBCs 5 H (0-0) /100 WBC ABG pH 7.22 L (7.35-7.45) ABG pCO2 74 H* (35-45) mmHg ABG pO2 56 L* (83-108) mmHg ABG HCO3 31 H (21-25) mmol/L ABG Total CO2 33 H (19-24) mmol/L ABG O2 Saturation 82.2 L (94-97) % Sodium 130 L (137-145) mmol/L Potassium 5.8 H (3.5-5.1) mmol/L Chloride 87 L (98-107) mmol/L BUN 105 H* (7-17) mg/dL Creatinine 4.41 H (0.52-1.04) mg/dL Glucose 127 H (74-99) mg/dL Calcium 8.0 L (8.4-10.2) mg/dL Iron (50-170) UG/DL TIBC (228-460) UG/DL % Saturation (12.00-45.00) Transferrin (204.0-354.0) mg/dL Delta Bilirubin 0.6 H (0.0-0.2) mg/dL AST >1500 H (14-36) U/L Procalcitonin (0.02-0.09) ng/mL Assessment and Plan Assessment: Impression: Altered mental status secondary to acute hypoxic and hypercapnic respiratory failure , multifactorial Acute exacerbation of COPD Acute on chronic diastolic congestive heart failure Acute Metabolic encephalopathy secondary to above Acute kidney injury with electrolytes imbalance with hyponatremia and hyperkalemia Abnormal liver enzymes, possible pancreatitis and ileus Suspect acute hepatic encephalopathy with elevated ammonia level and elevated liver enzymes Troponin leak Urine drug screen is positive for opiates, oxycodone and tricyclic antidepressants, may have contributed to her encephalopathy as above. And hypercapnia History of fibromyalgia History of anxiety/depression/panic disorder Hyperlipidemia Hypertension Memory impairment Chronic and ongoing tobacco dependence Chronic atrial fibrillation anticoagulant with Eliquis Plan: Continue BiPAP Transfer patient to ICU Continue close monitoring of her liver enzymes and her ammonia, treat with lactulose Continue nasogastric tube and utilize for suctioning and for enteral feeding and for medications as the patient is high-risk for aspiration Continue gentle diuresis Continue bronchodilators Titrate FiO2 accordingly Lactulose 3 times a day If the patient continues to worsen may have to consider intubation and mechanical ventilation while in the ICU. Patient is critically ill, critical care time is over 30 minutes We will continue to follow. Time with Patient: Greater than 30
[2023-01-30] MEDS: methylPREDNISolone SOD SUCCI 40 MG/ML 1 ML VIAL IV SCH (16:03)
--- NOTE | 2023-01-30 16:37 | XR ---
EXAMINATION TYPE: XR chest 1V portable DATE OF EXAM: 01/30/2023 11:07 AM CLINICAL INDICATION:Female, 67 years old with history of Hypoxemia; [facility] COMPARISON: Chest radiographs from 01/29/2023 TECHNIQUE: XR chest 1V portable Frontal view of the chest. FINDINGS: Lungs/Pleura: There is no evidence of pleural effusion, focal consolidation, or pneumothorax. Pulmonary vascularity: Unremarkable. Heart/mediastinum: Cardiomediastinal silhouette is unremarkable. Musculoskeletal: No acute osseous pathology. Other findings: None Lines/Tubes: Endotracheal tube with distal tip 8.3 cm above the ivet. IMPRESSION: 1. Endotracheal tube in high position and advancement of at least 5 cm recommended for optimal place ment. 2. Cardiomegaly with pulmonary vascular congestion correlate with serum BNP.
[2023-01-30] MEDS: PIPERACILLIN-TAZOBACTAM 3.375 GM in SODIUM CHLORIDE 0.9% 100 ML IVPB SCH (17:30)
--- NOTE | 2023-01-30 19:40 | P.PN ---
Subjective Progress Note Date: 01/30/23 Progress note: Patient was transferred to ICU because of worsening respiratory status and increasing confusion. Ammonia levels were high and she was started on lactulose therapy. She is requiring BiPAP support. PHYSICAL EXAMINATION Vital signs reviewed. Head: Normocephalic. Eyes: Sclerae nonicteric. Neck: Brisk carotid upstroke, JVP could not be assessed due to thick neck Lungs: Poor inspiratory effort, mild crackles audible, Heart: Irregularly irregular pulse, S1-S2 is audible, no murmurs Abdomen: Soft nontender, positive bowel sounds no organomegaly. Extremities: 2+ pitting edema in bilateral 70, admission in bilateral lower extremity Neurological exam, patient is confused not able to answer cushions appropriately. Not following commands. Alert but confused ASSESSMENT Acute hypoxic and hypercapnic respiratory failure Metabolic encephalopathy due to multifactorial reasons Multiple electrolyte abnormalities including hypo-natremia, hyperkalemia LIAM Acute HFpEF exacerbation A. fib RVR. Patient is chronic A. fib Acute COPD exacerbation Severe sepsis Hypertension, dyslipidemia, type 2 diabetes, prior CVA PLAN Continue metoprolol succinate 50 mg daily, Eliquis 5 mg daily Hold spironolactone due to hyperkalemia. Agree with IV Lasix 40 mg twice a day. Check for urine output. Check for any obstructive uropathy with bladder ultrasound and renal ultrasound. Obtain nephrology consult Hold amiodarone for now IV antibiotics as per primary team Infectious workup as per primary team COPD management Objective - Vital Signs Vital signs: Vital Signs Temp 98.3 F 01/30/23 16:00 Pulse 110 H 01/30/23 19:00 Resp 16 01/30/23 19:00 BP 125/82 01/30/23 19:00 Pulse Ox 95 01/30/23 19:00 FiO2 45 01/30/23 16:00 Intake & Output 01/30/23 01/30/23 01/31/23 06:59 18:59 06:59 Intake Total 100 20 Output Total 2220 1060 100 Balance -0 -960 -80 Weight 98 kg Intake: IV 100 20 0.9 NS 100 20 Output: Urine 2220 1060 100 Other: Voiding Method Indwelling Catheter Indwelling Catheter - Labs CBC & Chem 7: 01/30/23 08:53 01/30/23 08:53 Labs: Abnormal Lab Results - Last 24 Hours (Table) 01/29/23 01/30/23 01/30/23 Range/Units 09:00 08:53 08:53 WBC 15.7 H (3.8-10.6) k/uL Hgb 8.2 L (11.4-16.0) gm/dL Hct 28.6 L (34.0-46.0) % MCV 72.7 L (80.0-100.0) fL MCH 21.0 L (25.0-35.0) pg MCHC 28.8 L (31.0-37.0) g/dL RDW 19.5 H (11.5-15.5) % Plt Count 542 H (150-450) k/uL Neutrophils # (Manual) 15.00 H (1.3-7.7) k/uL Lymphocytes # (Manual) 0.16 L (1.0-4.8) k/uL Myelocytes # (Manual) 0.16 H (0) k/uL Nucleated RBCs 5 H (0-0) /100 WBC ABG pH (7.35-7.45) ABG pCO2 (35-45) mmHg ABG pO2 (83-108) mmHg ABG HCO3 (21-25) mmol/L ABG Total CO2 (19-24) mmol/L ABG O2 Saturation (94-97) % Sodium 130 L (137-145) mmol/L Potassium 5.8 H (3.5-5.1) mmol/L Chloride 87 L (98-107) mmol/L BUN 105 H* (7-17) mg/dL Creatinine 4.41 H (0.52-1.04) mg/dL Glucose 127 H (74-99) mg/dL Calcium 8.0 L (8.4-10.2) mg/dL Iron 16 L (50-170) UG/DL TIBC 539 H (228-460) UG/DL % Saturation 2.97 L (12.00-45.00) Transferrin 385.0 H (204.0-354.0) mg/dL Delta Bilirubin 0.6 H (0.0-0.2) mg/dL AST >1500 H (14-36) U/L 01/30/23 Range/Units 11:02 WBC (3.8-10.6) k/uL Hgb (11.4-16.0) gm/dL Hct (34.0-46.0) % MCV (80.0-100.0) fL MCH (25.0-35.0) pg MCHC (31.0-37.0) g/dL RDW (11.5-15.5) % Plt Count (150-450) k/uL Neutrophils # (Manual) (1.3-7.7) k/uL Lymphocytes # (Manual) (1.0-4.8) k/uL Myelocytes # (Manual) (0) k/uL Nucleated RBCs (0-0) /100 WBC ABG pH 7.22 L (7.35-7.45) ABG pCO2 74 H* (35-45) mmHg ABG pO2 56 L* (83-108) mmHg ABG HCO3 31 H (21-25) mmol/L ABG Total CO2 33 H (19-24) mmol/L ABG O2 Saturation 82.2 L (94-97) % Sodium (137-145) mmol/L Potassium (3.5-5.1) mmol/L Chloride (98-107) mmol/L BUN (7-17) mg/dL Creatinine (0.52-1.04) mg/dL Glucose (74-99) mg/dL Calcium (8.4-10.2) mg/dL Iron (50-170) UG/DL TIBC (228-460) UG/DL % Saturation (12.00-45.00) Transferrin (204.0-354.0) mg/dL Delta Bilirubin (0.0-0.2) mg/dL AST (14-36) U/L
[2023-01-30] MEDS ORDERED: PIPERACILLIN-TAZOBACTAM 3.375 GM in SODIUM CHLORIDE 0.9% 100 ML IVPB SCH (22:00)
[2023-01-30] MEDS ORDERED: DILTIAZEM 125 MG in SODIUM CHLORIDE 0.9% 100 ML IV SCH ×4 (23:00)
[2023-01-31] MEDS: FUROSEMIDE 10 MG/ML 4 ML VIAL IV SCH ×2 (00:59→08:00)
[2023-01-31] MEDS: methylPREDNISolone SOD SUCCI 40 MG/ML 1 ML VIAL IV SCH ×4 (00:59→23:52)
[2023-01-31] MEDS: DEXMEDETOMIDINE/0.9% NACL(PMX) 400 MCG in EMPTY BAG 1 BAG IV SCH ×5 (01:09→17:22)
[2023-01-31 04:33] LABS: Anisocytosis Slight; Basophils % (A) 0 %; Eosinophils % (A) 0 %; HCT 25.2 % (34.0-46.0); HGB 7.3 gm/dL (11.4-16.0); Hypochromasia Marked; Lymphocytes # (A) 0.5 k/uL (1.0-4.8); Lymphocytes % (A) 4 %; MCH 21.2 pg (25.0-35.0); MCHC 28.9 g/dL (31.0-37.0); MCV 73.4 fL (80.0-100.0); Mean Platelet Volume 8.3; Microcytosis Moderate; Monocytes # (A) 0.5 k/uL (0-1.0); Monocytes % (A) 5 %; Neutrophils # (A) 10.8 k/uL (1.3-7.7); Neutrophils % (A) 91 %; Platelet Count 472 k/uL (150-450); Poikilocytosis Slight; RBC 3.43 m/uL (3.80-5.40); RDW 19.7 % (11.5-15.5)
[2023-01-31 04:44] LABS: African American GFR (CKD) 11 (>60 ml/min/1.73 sqM); Albumin 3.4 g/dL (3.5-5.0); Alkaline Phosphatase 84 U/L (38-126); Anion Gap 15 mmol/L; Bilirubin, Delta 0.7 mg/dL (0.0-0.2); Bilirubin,Unconjugated 0.3 mg/dL (0.0-1.1); Carbon Dioxide 28 mmol/L (22-30); Chloride 89 mmol/L (98-107); Glucose 107 mg/dL (74-99); Lipase 1070 U/L (23-300); Non-African American GFR(CKD) 9 (>60 ml/min/1.73 sqM); Potassium 5.5 mmol/L (3.5-5.1); Sodium 132 mmol/L (137-145); Total Protein 5.8 g/dL (6.3-8.2)
[2023-01-31 04:56] LABS: Blood Urea Nitrogen 111 mg/dL (7-17)
[2023-01-31 04:58] LABS: Amylase 348 U/L (30-110)
[2023-01-31 04:59] LABS: AST 805 U/L (14-36)
[2023-01-31 05:42] LABS: ALT 2347 U/L (4-34)
[2023-01-31] MEDS: PIPERACILLIN-TAZOBACTAM 3.375 GM in SODIUM CHLORIDE 0.9% 100 ML IVPB SCH ×2 (06:45→17:46)
--- NOTE | 2023-01-31 07:05 | XR ---
EXAMINATION TYPE: XR chest 1V portable DATE OF EXAM: 01/31/2023 CLINICAL HISTORY: Difficulty breathing progress study. TECHNIQUE: Single AP portable upright view of the chest is obtained. COMPARISON: Chest x-ray from one day earlier and older studies. FINDINGS: Interval extubation with removal of endotracheal tube. Persistent cardiomegaly with increa sed interstitial markings. No new focal airspace opacity, pleural effusion, or pneumothorax is seen. Osseous structures are intact. IMPRESSION: Interval extubation. Stable cardiomegaly with mild interstitial edema.
[2023-01-31] MEDS: PANTOPRAZOLE 40 MG/10 ML VIAL IVP SCH ×2 (08:01→21:30)
--- NOTE | 2023-01-31 08:22 | P.PN ---
Subjective This is a pleasant 67 years old female with past medical history of CVA/TIA, Fibromyalgia, Hyperlipidemia, Hypertension, Memory Impairment, Osteoarthritis ,chronic neck and back pain, ddd, ARTHRITIS, USES CANE NEEDED FOR FIBROMYALGIA, s/p cervical fusion,, Anxiety, Depression, Panic Disorder, Current every day smoker Patient presents because of generalized weakness and drowsiness and inability to get up. Patient also was confused. Took extra dose of Klonopin that does not belong to her Results the patient she was looking tired, she was on BiPAP machine which limits her ability to provide information however she follow commands appropriately. She can't tell she is in the hospital the year and the name of the president. She says she's been having some difficulty breathing for around 2 days, no report of coughing. When I asked her she denies chest pain or abdominal pain. Her abdomen looks soft. No vomiting or diarrhea. No weakness or numbness. patient is afebrile, mildly tachycardic and hypoxic and she was saturating 81-91 on 4 L oxygen via nasal cannula patient currently on BiPAP with improved saturation patient has significant leukocytosis of 22.5, hemoglobin 8.6. Platelet count 681. INR 1.6. PH 7.11, pCO2 elevated 85 nothing by mouth to allow 56. Sodium 132, potassium 6, creatinine 3.6, previously was within the reference range. Bilirubin is in within the reference range at 1.1 but AST elevated 3376 and ALT 2982 area Troponin is elevated 0.073. ProBNP is high 11 700 urine analysis is negative. Urine drug screen is positive for opiates, oxycodone and tricyclic antidepressant while serum alcohol less than 10. Chest x-ray: Cardiomegaly with possible pulmonary congestion CT of the brain: No acute process. Atrophic changes EKG: Atrial fibrillation with a rate of 83 with right axis deviation and right bundle branch block and QTC 474 patient was started on Solu-Medrol, IV Lasix 01/30/2023 Patient still confused, she still on BiPAP setting of 15/5 with FiO2 of 45% She still have evidence of acidosis with pH of 7.2, pCO2 worse little today more than 70 compared to 60 yesterday. Her oxygen saturation is acceptable, she is afebrile and the rest of vitals stable although she still tachycardic at 111 Her abdomen looks mildly distended but soft area. There is decreased air entry on both sides no wheezing. No leg swelling. Pupils are equal and reactive to light. Her leukocytosis is improved to to 15,000, hemoglobin is stable at 8.2, INR 1.6. Creatinine is stable at 4.4 which is elevated. Liver enzymes elevated, bilirubin is within the reference range. When he is for the patient was placed on lactulose. Production calcitonin is elevated at 0.77. Creatinine Is 471. Echocardiogram: Showed severe right ventricular dilatation with moderate pulmonary hypertension CAT scan of the abdomen and pelvis without contrast showing ileus and mild pancreatitis. Surgical consult is requested. Prognosis is guarded I talked to the Mr. Dunn over the phone and updated the case with him, he says that the patient was sick for the last 2-3 days before hospitalization that she was sleeping a lot. I asked him what her klonopin and he said he takes it for anxiety note for seizure. because of her Change in mentation we going to taper down her klonopin Down to 0.5 daily. 01/31/2023 Patient remains in the ICU in critical condition, she is confused and she is on a Precedex, she could not provide information although she opens eyes continuously and moans. She does not answer questions and she does not follow commands. She still on BiPAP. Her abdomen looks soft still distended. Does not look tender on examination which is limited by her mentation changes. The leg swelling. Weaver catheter in place. NG tube was taken out. Under Repeat chest x-ray from today showing improvement since admission she is on IV Lasix. Yesterday she had about 1.5 L out. Patient remains nothing by mouth because of her pancreatitis and mentation changes. Patient has elevated amylase lipase and CAT scan showing pancreatitis. Of note, patient given because of her CHF actually she is on IV Lasix. Creatinine remains elevated 4.4 but stable, potassium 5.5 which is stable. Liver enzymes actually trending down with AST 805, ALT 2347. Most likely her transaminitis is secondary to her pancreatitis. Also patient cannot tolerate all of a sudden she is not taking Eliquis therefore we might use alternative however him hemoglobin dropped from 8.2 down to 7.3 therefore going to do anemia workup and monitor hemoglobin closely before restarting anticoagulation Elliott is controlled while she is presented 5 mg/h (patient cannot take oral beta teja as well) over her blood pressure is slightly lower. Still systolic more than 100. She remains on Zosyn, doxycycline, some internal 60 mg, IV Lasix 40 mg 3 times a day, IV Protonix 40 mg. Ammonia actually coming down today and is normal at 23. Gueroonopin is on hold Active Medications Generic Name Dose Route Start Last Admin Trade Name Freq PRN Reason Stop Dose Admin Acetaminophen 650 mg 01/28/23 17:56 Acetaminophen Tab 325 Mg Tab PO Q4HR PRN Mild Pain or Fever > 100.5 Albuterol/Ipratropium 3 ml 01/28/23 20:00 01/30/23 20:58 Ipratropium-Albuterol 3 Ml Neb INHALATION 3 ml RT-QID [facility] Administration Albuterol/Ipratropium 3 ml 01/28/23 17:56 Ipratropium-Albuterol 3 Ml Neb INHALATION RT-Q2H PRN Shortness Of Breath Or Wheezing Apixaban 5 mg 01/29/23 09:00 01/30/23 23:29 Apixaban 5 Mg Tab PO Not Given BID [facility] Protocol Budesonide/Formoterol Fumarate 2 puff 01/29/23 09:00 01/30/23 20:58 Symbicort 160-4.5 Mcg Inhaler INHALATION 2 puff RT-BID [facility] Administration Duloxetine HCl 120 mg 01/29/23 09:00 01/29/23 08:14 Duloxetine Hcl 60 Mg Capsule.Dr PO 120 mg DAILY [facility] Administration Furosemide 40 mg 01/29/23 00:00 01/31/23 08:00 Furosemide 10 Mg/Ml 4 Ml Vial IV 40 mg Q8HR [facility] Administration Doxycycline Hyclate 100 mg/ 100 mls @ 100 mls/hr 01/29/23 09:30 01/30/23 21:48 Sodium Chloride IVPB 100 mls/hr Q12HR [facility] Administration Protocol Ferric Sodium Gluconate 125 mg 110 mls @ 100 mls/hr 01/30/23 09:45 01/30/23 11:45 / Sodium Chloride IVPB 100 mls/hr DAILY [facility] Administration Piperacillin Sod/Tazobactam 100 mls @ 25 mls/hr 01/30/23 18:00 01/31/23 06:45 Sod 3.375 gm/ Sodium Chloride IVPB 25 mls/hr Q12H [facility] Administration Protocol Diltiazem HCl 125 mg/ Sodium 125 mls @ 0 mls/hr 01/30/23 23:00 01/31/23 03:02 Chloride IV 5 mls/hr .Q0M [facility] 5 mls/hr Titration Protocol Per Protocol Dexmedetomidine HCl 400 mcg/ 100 mls @ 4.9 mls/hr 01/31/23 01:00 01/31/23 05:00 IV Solution IV 1 mcg/kg/hr .[id number] [facility] 24.5 mls/hr Administration Protocol 0.2 MCG/KG/HR Lactulose 20 gm 01/29/23 16:00 01/30/23 23:29 Lactulose 20 Gm/30 Ml Cup PO Not Given TID [facility] Methylprednisolone Sodium Succinate 40 mg 01/30/23 16:00 01/31/23 08:01 Methylprednisolone Sod Succi 40 Mg/Ml 1 Ml Vial IV 40 mg Q8HR [facility] Administration Metoprolol Succinate 50 mg 01/29/23 09:00 01/29/23 10:07 Metoprolol Succinate (Er) 50 Mg Tab.Er.24h PO 50 mg DAILY [facility] Administration Naloxone HCl 0.2 mg 01/28/23 17:56 Naloxone 0.4 Mg/Ml 1 Ml Vial IVP Q2M PRN Opioid Reversal Pantoprazole Sodium 40 mg 01/29/23 23:15 01/31/23 08:01 Pantoprazole 40 Mg/10 Ml Vial IVP 40 mg BID [facility] Administration Objective - Vital Signs Vital signs: Vital Signs Temp 99.4 F 01/31/23 04:00 Pulse 97 01/31/23 07:00 Resp 14 01/31/23 07:00 BP 118/72 01/31/23 07:00 Pulse Ox 97 01/31/23 07:00 FiO2 45 01/31/23 07:43 Intake & Output 01/30/23 01/31/23 01/31/23 18:59 06:59 18:59 Intake Total 100 550.911 Output Total 1060 1265 Balance -960 -714.089 Weight 102 kg Intake: IV 100 460 0.9 NS 100 260 Doxycycline 100 mg In 100 Sodium Chloride 0.9% 100 ml @ 100 mls/hr IVPB Q12HR [facility] Rx#:[id number] Piperacillin-Tazobactam 3 100 .375 gm In Sodium Chloride 0.9% 100 ml @ 25 mls/hr IVPB Q12H [facility] Rx# :[id number] Intake, IV Titration 90.911 Amount Dexmedetomidine/0.9% NaCl 65.744 (Pmx) 400 mcg In Empty Bag 1 bag @ 0.2 MCG/KG/HR 4.9 mls/hr IV .[id number] [facility] Rx#:[id number] Diltiazem 125 mg In 25.167 Sodium Chloride 0.9% 100 ml @ Per Protocol IV .Q0M [facility] Rx#:[id number] Output: Urine 1060 1265 Other: Voiding Method Indwelling Catheter Indwelling Catheter - Exam -GENERAL: The patient is alert and confused on BiPAP, tired, she follows commands, not in any acute distress. Well developed, well nourished. HEENT: Pupils are round and equally reacting to light. EOMI. No scleral icterus. No conjunctival pallor. Normocephalic, atraumatic. No pharyngeal erythema. No thyromegaly. CARDIOVASCULAR: S1 and S2 present. No murmurs, rubs, or gallops. -PULMONARY: Decreased air entry in both sides, no wheezing , no crackles. On BiPAP -ABDOMEN: Soft, nontender, distended, normoactive bowel sounds. No palpable organomegaly. Weaver catheter in place MUSCULOSKELETAL: No joint swelling or deformity. EXTREMITIES: No cyanosis, clubbing, or pedal edema. NEUROLOGICAL: Gross neurological examination did not reveal any focal deficits. SKIN: No rashes. no petechiae. - Labs CBC & Chem 7: 01/31/23 03:40 01/31/23 03:40 Labs: Abnormal Lab Results - Last 24 Hours (Table) 01/30/23 01/30/23 01/30/23 Range/Units 08:53 08:53 11:02 WBC 15.7 H (3.8-10.6) k/uL RBC (3.80-5.40) m/uL Hgb 8.2 L (11.4-16.0) gm/dL Hct 28.6 L (34.0-46.0) % MCV 72.7 L (80.0-100.0) fL MCH 21.0 L (25.0-35.0) pg MCHC 28.8 L (31.0-37.0) g/dL RDW 19.5 H (11.5-15.5) % Plt Count 542 H (150-450) k/uL Neutrophils # (1.3-7.7) k/uL Neutrophils # (Manual) 15.00 H (1.3-7.7) k/uL Lymphocytes # (1.0-4.8) k/uL Lymphocytes # (Manual) 0.16 L (1.0-4.8) k/uL Myelocytes # (Manual) 0.16 H (0) k/uL Nucleated RBCs 5 H (0-0) /100 WBC ABG pH 7.22 L (7.35-7.45) ABG pCO2 74 H* (35-45) mmHg ABG pO2 56 L* (83-108) mmHg ABG HCO3 31 H (21-25) mmol/L ABG Total CO2 33 H (19-24) mmol/L ABG O2 Saturation 82.2 L (94-97) % Sodium 130 L (137-145) mmol/L Potassium 5.8 H (3.5-5.1) mmol/L Chloride 87 L (98-107) mmol/L BUN 105 H* (7-17) mg/dL Creatinine 4.41 H (0.52-1.04) mg/dL Glucose 127 H (74-99) mg/dL Calcium 8.0 L (8.4-10.2) mg/dL Delta Bilirubin 0.6 H (0.0-0.2) mg/dL AST >1500 H (14-36) U/L ALT (4-34) U/L Total Protein (6.3-8.2) g/dL Albumin (3.5-5.0) g/dL Amylase (30-110) U/L Lipase (23-300) U/L 01/31/23 01/31/23 Range/Units 03:40 03:40 WBC 12.0 H (3.8-10.6) k/uL RBC 3.43 L (3.80-5.40) m/uL Hgb 7.3 L (11.4-16.0) gm/dL Hct 25.2 L (34.0-46.0) % MCV 73.4 L (80.0-100.0) fL MCH 21.2 L (25.0-35.0) pg MCHC 28.9 L (31.0-37.0) g/dL RDW 19.7 H (11.5-15.5) % Plt Count 472 H (150-450) k/uL Neutrophils # 10.8 H (1.3-7.7) k/uL Neutrophils # (Manual) (1.3-7.7) k/uL Lymphocytes # 0.5 L (1.0-4.8) k/uL Lymphocytes # (Manual) (1.0-4.8) k/uL Myelocytes # (Manual) (0) k/uL Nucleated RBCs (0-0) /100 WBC ABG pH (7.35-7.45) ABG pCO2 (35-45) mmHg ABG pO2 (83-108) mmHg ABG HCO3 (21-25) mmol/L ABG Total CO2 (19-24) mmol/L ABG O2 Saturation (94-97) % Sodium 132 L (137-145) mmol/L Potassium 5.5 H (3.5-5.1) mmol/L Chloride 89 L (98-107) mmol/L BUN 111 H* (7-17) mg/dL Creatinine 4.58 H (0.52-1.04) mg/dL Glucose 107 H (74-99) mg/dL Calcium (8.4-10.2) mg/dL Delta Bilirubin 0.7 H (0.0-0.2) mg/dL AST 805 H (14-36) U/L ALT 2347 H (4-34) U/L Total Protein 5.8 L (6.3-8.2) g/dL Albumin 3.4 L (3.5-5.0) g/dL Amylase 348 H* (30-110) U/L Lipase 1070 H (23-300) U/L Assessment and Plan Assessment: Acute COPD exacerbation Acute hypoxemic hypercapnic respiratory failure Acute respiratory acidosis combined with metabolic acidosis Metabolic/toxic encephalopathy, Acute pancreatitis Acute renal failure with hyperkalemia, present on admission cute congestive heart failure with echo shows severely dilated right ventricle and right atrium transamnitis Atrial fibrillation Anemia Possible colitis with ileus Moderate pulmonary hypertension Chronic atrial fibrillation Hypochromic, microcytic anemia History of CVA/TIA Hypertension Hyperlipidemia History of memory impairment History of osteo-arthritis Chronic neck and back pain status post cervical fusion surgery. Anxiety depression and panic disorder, not in active tissue Plan: Continue with IV Lasix Continue with IV Solu-Medrol 60 mg Continue with antibiotics Zosyn and doxycycline Resume home dose of Eliquis (patient cannot tolerate oral however because of her anemia with holding on anticoagulation to stabilize her hemoglobin first controlled gently of bleeding from somewhere else) we will do anemia workup. continue with Protonix. Continue with a breathing treatment of bronchodilator Cardiology, pulmonary and nephrology consult on the case Gen. surgery consult also the case Continue with Weaver catheter Labs and medication were reviewed.. Continue same treatment. Continue with symptomatic treatment. Resume home medication. Monitor labs and vitals. DVT and GI prophylaxis. Further recommendations as per clinical course of the patient DVT prophylaxis: Eliquis GI Prophylaxis: Pepcid PT/OT: Pending Prognosis is guarded
[2023-01-31] MEDS ORDERED: clonazePAM 0.5 MG TAB PO SCH (09:00)
[2023-01-31] MEDS ORDERED: LACTULOSE 200 GM/300 ML (FROM 1/2 GAL JUG) RECTAL SCH ×2 (09:00→16:00)
[2023-01-31] MEDS: IPRATROPIUM-ALBUTEROL 3 ML NEB INHALATION SCH ×4 (09:07→20:08)
[2023-01-31 09:57] LABS: ABG Base Excess 6.7 mmol/L; ABG HCO3 32 mmol/L (21-25); ABG Oxygen Saturation 97.7 % (94-97); ABG PCO2 60 mmHg (35-45); ABG PH 7.34 (7.35-7.45); ABG PO2 105 mmHg (83-108); ABG TCO2 34 mmol/L (19-24); Allen Test Performed? Yes
--- NOTE | 2023-01-31 10:16 | P.PN ---
Subjective Patient is seen for follow-up for acute kidney injury and hyperkalemia. She is currently being diuresed. Admitted with mental status changes and hypercapnic respiratory failure. Currently maintained on BiPAP. Patient was transferred to the ICU for continued hypercapnic and hypoxic respiratory failure. This morning mentation is slightly better. 24 hour urine output at 2.3 L Maintained on BiPAP serum creatinine remains elevated at 4.5 mg/dL and potassium has improved to 5.5. Chest x-ray also appears to be improving. Objective - Vital Signs Vital signs: Vital Signs Temp 99.4 F 01/31/23 04:00 Pulse 80 01/31/23 09:19 Resp 14 01/31/23 07:00 BP 118/72 01/31/23 07:00 Pulse Ox 97 01/31/23 07:00 FiO2 45 01/31/23 07:43 Intake & Output 01/30/23 01/31/23 01/31/23 18:59 06:59 18:59 Intake Total 100 550.911 Output Total 1060 1265 Balance -960 -714.089 Weight 102 kg Intake: IV 100 460 0.9 NS 100 260 Doxycycline 100 mg In 100 Sodium Chloride 0.9% 100 ml @ 100 mls/hr IVPB Q12HR [facility] Rx#:[id number] Piperacillin-Tazobactam 3 100 .375 gm In Sodium Chloride 0.9% 100 ml @ 25 mls/hr IVPB Q12H [facility] Rx# :[id number] Intake, IV Titration 90.911 Amount Dexmedetomidine/0.9% NaCl 65.744 (Pmx) 400 mcg In Empty Bag 1 bag @ 0.2 MCG/KG/HR 4.9 mls/hr IV .[id number] [facility] Rx#:[id number] Diltiazem 125 mg In 25.167 Sodium Chloride 0.9% 100 ml @ Per Protocol IV .Q0M [facility] Rx#:[id number] Output: Urine 1060 1265 Other: Voiding Method Indwelling Catheter Indwelling Catheter - Exam Patient is awake, on BiPAP. More alert and answering questions. Examination of the heart S1 and S2 Examination of the lungs bilateral breath sounds are heard Abdomen is soft obese nontender Examination of the lower extremities shows edema 2+ bilaterally with chronic skin changes - Labs CBC & Chem 7: 01/31/23 03:40 01/31/23 03:40 Labs: Abnormal Lab Results - Last 24 Hours (Table) 01/30/23 01/30/23 01/30/23 Range/Units 08:53 08:53 11:02 WBC 15.7 H (3.8-10.6) k/uL RBC (3.80-5.40) m/uL Hgb 8.2 L (11.4-16.0) gm/dL Hct 28.6 L (34.0-46.0) % MCV 72.7 L (80.0-100.0) fL MCH 21.0 L (25.0-35.0) pg MCHC 28.8 L (31.0-37.0) g/dL RDW 19.5 H (11.5-15.5) % Plt Count 542 H (150-450) k/uL Neutrophils # (1.3-7.7) k/uL Neutrophils # (Manual) 15.00 H (1.3-7.7) k/uL Lymphocytes # (1.0-4.8) k/uL Lymphocytes # (Manual) 0.16 L (1.0-4.8) k/uL Myelocytes # (Manual) 0.16 H (0) k/uL Nucleated RBCs 5 H (0-0) /100 WBC ABG pH 7.22 L (7.35-7.45) ABG pCO2 74 H* (35-45) mmHg ABG pO2 56 L* (83-108) mmHg ABG HCO3 31 H (21-25) mmol/L ABG Total CO2 33 H (19-24) mmol/L ABG O2 Saturation 82.2 L (94-97) % Sodium 130 L (137-145) mmol/L Potassium 5.8 H (3.5-5.1) mmol/L Chloride 87 L (98-107) mmol/L BUN 105 H* (7-17) mg/dL Creatinine 4.41 H (0.52-1.04) mg/dL Glucose 127 H (74-99) mg/dL Calcium 8.0 L (8.4-10.2) mg/dL Delta Bilirubin 0.6 H (0.0-0.2) mg/dL AST >1500 H (14-36) U/L ALT (4-34) U/L Total Protein (6.3-8.2) g/dL Albumin (3.5-5.0) g/dL Amylase (30-110) U/L Lipase (23-300) U/L 01/31/23 01/31/23 01/31/23 Range/Units 03:40 03:40 09:54 WBC 12.0 H (3.8-10.6) k/uL RBC 3.43 L (3.80-5.40) m/uL Hgb 7.3 L (11.4-16.0) gm/dL Hct 25.2 L (34.0-46.0) % MCV 73.4 L (80.0-100.0) fL MCH 21.2 L (25.0-35.0) pg MCHC 28.9 L (31.0-37.0) g/dL RDW 19.7 H (11.5-15.5) % Plt Count 472 H (150-450) k/uL Neutrophils # 10.8 H (1.3-7.7) k/uL Neutrophils # (Manual) (1.3-7.7) k/uL Lymphocytes # 0.5 L (1.0-4.8) k/uL Lymphocytes # (Manual) (1.0-4.8) k/uL Myelocytes # (Manual) (0) k/uL Nucleated RBCs (0-0) /100 WBC ABG pH 7.34 L (7.35-7.45) ABG pCO2 60 H (35-45) mmHg ABG pO2 (83-108) mmHg ABG HCO3 32 H (21-25) mmol/L ABG Total CO2 34 H (19-24) mmol/L ABG O2 Saturation 97.7 H (94-97) % Sodium 132 L (137-145) mmol/L Potassium 5.5 H (3.5-5.1) mmol/L Chloride 89 L (98-107) mmol/L BUN 111 H* (7-17) mg/dL Creatinine 4.58 H (0.52-1.04) mg/dL Glucose 107 H (74-99) mg/dL Calcium (8.4-10.2) mg/dL Delta Bilirubin 0.7 H (0.0-0.2) mg/dL AST 805 H (14-36) U/L ALT 2347 H (4-34) U/L Total Protein 5.8 L (6.3-8.2) g/dL Albumin 3.4 L (3.5-5.0) g/dL Amylase 348 H* (30-110) U/L Lipase 1070 H (23-300) U/L Assessment and Plan Assessment: 1. Acute kidney injury mostly ATN from hypotension Indwelling Weaver catheter present. UA is completely benign. No evidence of hydronephrosis on abdominal CT. previous creatinine 1.0 on 08/14/2021 2. Mental status changes secondary to hypercapnic respiratory failure 3. Respiratory acidosis and hypercapnic respiratory failure maintained on BiPAP 4. Hyperkalemia associated with acute kidney injury, rule out GI bleed. Aldactone on hold 5. Anemia with severe iron deficiency. No active bleeding noted. Consider GI bleed given the hyperkalemia and low hemoglobin 6. Hyponatremia, hypervolemic 7. Hypervolemia/volume overload 8. Colonic dilatation, ileus 9. Acute pancreatitis, currently nothing by mouth. No obstruction noted. 10. Shock liver, improving Plan: Continue with IV Lasix, increase dose Continue to hold Aldactone we will continue to assess for need for renal replacement therapy on a daily basis. Avoid nephrotoxic agents
[2023-01-31] MEDS: SODIUM FERRIC GLUCONAT-SUCROSE 125 MG in SODIUM CHLORIDE 0.9% 100 ML IVPB SCH (10:32)
[2023-01-31] MEDS: APIXABAN 5 MG TAB PO SCH ×2 (10:44→21:30)
[2023-01-31] MEDS: DULoxetine HCL 60 MG CAPSULE.DR PO SCH (10:44)
[2023-01-31] MEDS: METOPROLOL SUCCINATE (ER) 50 MG TAB.ER.24H PO SCH (10:46)
[2023-01-31] MEDS: DOXYCYCLINE 100 MG in SODIUM CHLORIDE 0.9% 100 ML IVPB SCH (11:01)
[2023-01-31] MEDS: LACTULOSE 20 GM/30 ML CUP PO SCH (11:40)
--- NOTE | 2023-01-31 12:13 | P.PN ---
Subjective Progress Note Date: 01/31/23 Principal diagnosis: Acute hypoxic and hypercapnic respiratory failure with acute exacerbation of diastolic congestive heart failure, and acute exacerbation of COPD This is a 67-year-old female with a known history of hypertension, hyperlipidemia, fibromyalgia, CVA/TIA, memory impairment, anxiety/depression/panic disorder, chronic and ongoing tobacco dependence. She was brought into the emergency room by her to start afternoon after finding her to be quite drowsy. He had trouble getting her up. She had trouble bearing her own weight. She was confused. Apparently she had taken extra Klonopin. Computed tomography scan of the brain revealed chronic small vessel ischemic changes without acute intracranial process. Chest x-ray revealed chronic changes but no acute pulmonary disease. Echocardiogram revealed preserved left ventricular systolic function. Severe right ventricular enlargement with moderate pulmonary hypertension. Abdominal ultrasound revealed no acute process. White count 18.2. Hemoglobin 8.3. Platelets 605. Sodium 129. Potassium 6.4. Bicarb 25. BUN 82. Creatinine 4.25. AST 4961. ALT 4711. Ammonia level XL. Creatinine kinase 471. BNP 11,700. Urine drug screen positive for opiates, oxycodone, tricyclic antidepressants. Initial arterial blood gases on 36% FiO2 revealed a P O2 of 38, pCO2 of 100 and a pH of 7.05. She was placed on BiPAP 15/5 and 32% FiO2 and follow-up blood gases revealed a pO2 of 56, pCO2 of 85 and a pH of 7.11. She is seen today in consultation in the emergency department. She is currently resting on a stretcher. Arousable. Not able to give much information. Follow-up arterial blood gases on 36% FiO2 revealed a pO2 of 69, pCO2 of 63 and a pH of 7.23. Patient was reevaluated today on 01/30/2023, patient remains on BiPAP, continues to be confused, she is arousable, but does not seem to be quite alert and oriented. In spite of being on BiPAP for the last 24 hours, repeat ABG on 40% FiO2 with IPAP of 16 and EPAP of 6 showed a pO2 of 56 E. CO2 74 and pH of 7.22 which is clearly a worsening ABG compared to the ABG noted yesterday. With worsening hypoxia worsening hypercapnia and worsening pH. Hence after evaluating the patient I recommended immediate transfer to the ICU and will continue BiPAP, we will check a follow-up chest x-ray, if the patient does not improve much, and we will continue diuretics, may have to consider intubating the patient and placement on mechanical ventilation. Chest x-ray this morning continues to show cardiomegaly and interstitial edema, doubt underlying pneumonia. WBC count today is 15.7 hemoglobin is 8.2 sodium is 130 potassium 5.8 BUN is 105 creatinine 4.41. Liver enzymes are worsening with worsening AST of over 1500, ALT was close to 5000s, CPK is 471 Procalcitonin is 0.77, CT of the abdomen and pelvis showed mild pancreatitis with colonic dilatation suggestive of colonic ileus. Patient was seen by general surgery on consultation for her abnormal CT of the abdomen and pelvis and recommended mostly conservative measures Reevaluated today on 01/31/2023, patient was transferred to ICU yesterday, remains in the ICU, remains on BiPAP 15/45%. Overnight the patient was extremely agitated and restless, and kept pulling her BiPAP, hence she was placed on Precedex which is now at 1 mcg/kg/h. For her atrial fibrillation with RVR remains on Cardizem at 5 mg per hour. Patient remains on Zosyn she also remains on Lasix at 40 mg IV push every 8 hours. Chest x-ray is showing definite improvement. Follow-up ABG today on the BiPAP showed significant improvement compared to yesterday with improving oxygenation pO2 105 improving p CO2 down to 60 from 74 and improving pH from 7.22 to 7.34 liver enzymes are elevated but improving and malaise is elevated at 348 and lipase is 1070 chest x-ray is showing improvement in her interstitial edema but not fully resolved Objective - Vital Signs Vital signs: Vital Signs Temp 98.6 F 01/31/23 08:00 Pulse 94 01/31/23 11:30 Resp 12 01/31/23 11:30 BP 110/70 01/31/23 11:30 Pulse Ox 92 L 01/31/23 11:30 FiO2 45 01/31/23 08:00 Intake & Output 01/30/23 01/31/23 01/31/23 18:59 06:59 18:59 Intake Total 100 550.911 319.917 Output Total 1060 1265 450 Balance -960 -714.089 -130.083 Weight 102 kg Intake: IV 100 460 80 0.9 NS 100 260 80 Doxycycline 100 mg In 100 Sodium Chloride 0.9% 100 ml @ 100 mls/hr IVPB Q12HR [facility] Rx#:[id number] Piperacillin-Tazobactam 3 100 .375 gm In Sodium Chloride 0.9% 100 ml @ 25 mls/hr IVPB Q12H [facility] Rx# :[id number] Intake, IV Titration 90.911 139.917 Amount Dexmedetomidine/0.9% NaCl 65.744 (Pmx) 400 mcg In Empty Bag 1 bag @ 0.2 MCG/KG/HR 4.9 mls/hr IV .[id number] [facility] Rx#:[id number] Diltiazem 125 mg In 25.167 39.917 Sodium Chloride 0.9% 100 ml @ Per Protocol IV .Q0M [facility] Rx#:[id number] Sodium Ferric Gluconat- 100 Sucrose 125 mg In Sodium Chloride 0.9% 100 ml @ 100 mls/hr IVPB DAILY [facility] Rx#:[id number] Oral 100 Output: Urine 1060 1265 450 Other: Voiding Method Indwelling Catheter Indwelling Catheter - Exam Physical Exam: Revealed a 67-year-old female obese, on BiPAP, awake and following all instructions Head: Atraumatic, normocephalic. She does have short obese neck. HEENT:[Neck is supple.] [No neck masses.] [No thyromegaly.] [No JVD.] Chest: Minimal fine crackles at the bases no rhonchi and no wheezes Cardiac Exam: [Normal S1 and S2, no S3 gallop, no murmur.] Abdomen: [Obese, Soft, nontender, no megaly, no rebound, no guarding, normal bowel sounds.] Extremities: [No clubbing, trace of bipedal edema, no cyanosis.] Good pulses bilaterally Neurological Exam: Alert and oriented 3 Isaac focal neurologic deficit Psychiatric: Normal mood, affect and normal mental status examination - Labs CBC & Chem 7: 01/31/23 03:40 01/31/23 03:40 Labs: Abnormal Lab Results - Last 24 Hours (Table) 01/31/23 01/31/23 01/31/23 Range/Units 03:40 03:40 09:54 WBC 12.0 H (3.8-10.6) k/uL RBC 3.43 L (3.80-5.40) m/uL Hgb 7.3 L (11.4-16.0) gm/dL Hct 25.2 L (34.0-46.0) % MCV 73.4 L (80.0-100.0) fL MCH 21.2 L (25.0-35.0) pg MCHC 28.9 L (31.0-37.0) g/dL RDW 19.7 H (11.5-15.5) % Plt Count 472 H (150-450) k/uL Neutrophils # 10.8 H (1.3-7.7) k/uL Lymphocytes # 0.5 L (1.0-4.8) k/uL ABG pH 7.34 L (7.35-7.45) ABG pCO2 60 H (35-45) mmHg ABG HCO3 32 H (21-25) mmol/L ABG Total CO2 34 H (19-24) mmol/L ABG O2 Saturation 97.7 H (94-97) % Sodium 132 L (137-145) mmol/L Potassium 5.5 H (3.5-5.1) mmol/L Chloride 89 L (98-107) mmol/L BUN 111 H* (7-17) mg/dL Creatinine 4.58 H (0.52-1.04) mg/dL Glucose 107 H (74-99) mg/dL Delta Bilirubin 0.7 H (0.0-0.2) mg/dL AST 805 H (14-36) U/L ALT 2347 H (4-34) U/L Total Protein 5.8 L (6.3-8.2) g/dL Albumin 3.4 L (3.5-5.0) g/dL Amylase 348 H* (30-110) U/L Lipase 1070 H (23-300) U/L Assessment and Plan Assessment: Impression: Altered mental status secondary to acute hypoxic and hypercapnic respiratory failure , multifactorial Acute exacerbation of COPD Acute on chronic diastolic congestive heart failure Acute Metabolic encephalopathy secondary to above Acute kidney injury with electrolytes imbalance with hyponatremia and hyperkalemia Acute pancreatitis and acute transaminitis. Mild hepatic encephalopathy, resolved, ammonia level is normal Troponin leak Urine drug screen is positive for opiates, oxycodone and tricyclic antidepressa nts, may have contributed to her encephalopathy as above. And hypercapnia History of fibromyalgia History of anxiety/depression/panic disorder Hyperlipidemia Hypertension Memory impairment Chronic and ongoing tobacco dependence Chronic atrial fibrillation anticoagulant with Eliquis Plan: Continue BiPAP however will intermittently transitioned to nasal cannula and attempts to feed the patient if possible Continue to monitor in the ICU Continue to monitor liver enzymes and pancreatic enzymes on a daily basis as well as ammonia level Consider feeding/mostly clear liquids for now. Continue gentle diuresis Continue bronchodilators Titrate FiO2 accordingly Continue lactulose Prognosis is relatively guarded considering her multiple comorbidities We will continue to follow. Time with Patient: Less than 30
[2023-01-31 13:59] LABS: % Iron Saturation 4.99 (12.00-45.00)
--- NOTE | 2023-01-31 14:09 | P.PN ---
Subjective Progress Note Date: 01/31/23 CHIEF COMPLAINT: Pancreatitis HISTORY OF PRESENT ILLNESS: The patient is a 67 year old female with new pancreatitis including hypercarbia, exacerbation of congestive heart failure. She is off BiPAP. Family is at bedside. NG tube removed. REVIEW OF ORGAN SYSTEMS: No fevers or chills. No chest pain. PHYSICAL EXAM: VITALS: Reviewed CONSTITUTIONAL: Well developed and in no acute distress. EYES: Conjuctivae without sclera icterus. Extraocular movements grossly intact. HEAD, EARS, NOSE, THROAT: Moist buccal mucosa. Head is atraumatic, normocephalic. Hears conversational speech. No nasal drainage. RESPIRATORY: off Bipap. Non-labored respirations. CARDIOVASCULAR: Palpable 2+ radial pulses. ABDOMEN: Obese. Nontender. MUSCULOSKELETAL: No clubbing cyanosis or edema SKIN: Warm and well perfused with good skin turgor. NEUROLOGIC: Cranial nerves II through XII grossly intact. No focal or lateralizing signs. PSYCH: Alert to self. CLINCAL LABS: Reviewed. WBC elevated at 15,000 now trending down to 12,000. Lipase over 1000. Hgb down 8.2 to 7.3. ASSESSMENT: 1. Pancreatitis her computed tomography scan 2. Ileus 3. Leukocytosis 4. Anemia 5. Hyperkalemia 6. Acute kidney failure 7. Elevated LFTs 8. Liver shock 9. Metabolic encephalopathy PLAN: 1. Correct underlying cause of ileus. NGT not necessary for colonic distention. 2. Start ice chips and popsicles as she is still confused. 3. May advance diet as tolerated as she becomes more lucid. Objective - Vital Signs Vital signs: Vital Signs Temp 99.1 F 01/31/23 12:00 Pulse 110 H 01/31/23 12:00 Resp 23 01/31/23 12:00 BP 120/78 01/31/23 12:00 Pulse Ox 95 01/31/23 12:00 FiO2 45 01/31/23 08:00 Intake & Output 01/30/23 01/31/23 01/31/23 18:59 06:59 18:59 Intake Total 100 550.911 539.917 Output Total 1060 1265 550 Balance -960 -714.089 -10.083 Weight 102 kg Intake: IV 100 460 100 0.9 NS 100 260 100 Doxycycline 100 mg In 100 Sodium Chloride 0.9% 100 ml @ 100 mls/hr IVPB Q12HR [facility] Rx#:[id number] Piperacillin-Tazobactam 3 100 .375 gm In Sodium Chloride 0.9% 100 ml @ 25 mls/hr IVPB Q12H [facility] Rx# :[id number] Intake, IV Titration 90.911 339.917 Amount Dexmedetomidine/0.9% NaCl 65.744 200.000 (Pmx) 400 mcg In Empty Bag 1 bag @ 0.2 MCG/KG/HR 4.9 mls/hr IV .[id number] [facility] Rx#:[id number] Diltiazem 125 mg In 25.167 39.917 Sodium Chloride 0.9% 100 ml @ Per Protocol IV .Q0M [facility] Rx#:[id number] Sodium Ferric Gluconat- 100 Sucrose 125 mg In Sodium Chloride 0.9% 100 ml @ 100 mls/hr IVPB DAILY [facility] Rx#:[id number] Oral 100 Output: Urine 1060 1265 550 Other: Voiding Method Indwelling Catheter Indwelling Catheter Indwelling Catheter - Labs CBC & Chem 7: 01/31/23 03:40 01/31/23 03:40 Labs: Abnormal Lab Results - Last 24 Hours (Table) 01/31/23 01/31/23 01/31/23 Range/Units 03:40 03:40 03:40 WBC 12.0 H (3.8-10.6) k/uL RBC 3.43 L (3.80-5.40) m/uL Hgb 7.3 L (11.4-16.0) gm/dL Hct 25.2 L (34.0-46.0) % MCV 73.4 L (80.0-100.0) fL MCH 21.2 L (25.0-35.0) pg MCHC 28.9 L (31.0-37.0) g/dL RDW 19.7 H (11.5-15.5) % Plt Count 472 H (150-450) k/uL Neutrophils # 10.8 H (1.3-7.7) k/uL Lymphocytes # 0.5 L (1.0-4.8) k/uL ABG pH (7.35-7.45) ABG pCO2 (35-45) mmHg ABG HCO3 (21-25) mmol/L ABG Total CO2 (19-24) mmol/L ABG O2 Saturation (94-97) % Sodium 132 L (137-145) mmol/L Potassium 5.5 H (3.5-5.1) mmol/L Chloride 89 L (98-107) mmol/L BUN 111 H* (7-17) mg/dL Creatinine 4.58 H (0.52-1.04) mg/dL Glucose 107 H (74-99) mg/dL Iron 23 L (50-170) UG/DL TIBC 461 H (228-460) UG/DL % Saturation 4.99 L (12.00-45.00) Delta Bilirubin 0.7 H (0.0-0.2) mg/dL AST 805 H (14-36) U/L ALT 2347 H (4-34) U/L Total Protein 5.8 L (6.3-8.2) g/dL Albumin 3.4 L (3.5-5.0) g/dL Amylase 348 H* (30-110) U/L Lipase 1070 H (23-300) U/L Vitamin B12 1695.0 H (200.0-944.0) pg/mL 01/31/23 Range/Units 09:54 WBC (3.8-10.6) k/uL RBC (3.80-5.40) m/uL Hgb (11.4-16.0) gm/dL Hct (34.0-46.0) % MCV (80.0-100.0) fL MCH (25.0-35.0) pg MCHC (31.0-37.0) g/dL RDW (11.5-15.5) % Plt Count (150-450) k/uL Neutrophils # (1.3-7.7) k/uL Lymphocytes # (1.0-4.8) k/uL ABG pH 7.34 L (7.35-7.45) ABG pCO2 60 H (35-45) mmHg ABG HCO3 32 H (21-25) mmol/L ABG Total CO2 34 H (19-24) mmol/L ABG O2 Saturation 97.7 H (94-97) % Sodium (137-145) mmol/L Potassium (3.5-5.1) mmol/L Chloride (98-107) mmol/L BUN (7-17) mg/dL Creatinine (0.52-1.04) mg/dL Glucose (74-99) mg/dL Iron (50-170) UG/DL TIBC (228-460) UG/DL % Saturation (12.00-45.00) Delta Bilirubin (0.0-0.2) mg/dL AST (14-36) U/L ALT (4-34) U/L Total Protein (6.3-8.2) g/dL Albumin (3.5-5.0) g/dL Amylase (30-110) U/L Lipase (23-300) U/L Vitamin B12 (200.0-944.0) pg/mL
[2023-01-31 14:31] LABS: Anisocytosis Slight; HCT 25.6 % (34.0-46.0); HGB 7.4 gm/dL (11.4-16.0); Hypochromasia Marked; MCHC 28.9 g/dL (31.0-37.0); MCV 72.7 fL (80.0-100.0); Mean Platelet Volume 7.9; Microcytosis Marked; Platelet Count 444 k/uL (150-450); Poikilocytosis Slight; RBC 3.52 m/uL (3.80-5.40); RDW 19.9 % (11.5-15.5); WBC 11.8 k/uL (3.8-10.6)
--- NOTE | 2023-01-31 14:48 | P.PN ---
Subjective Progress Note Date: 01/31/23 Progress note: Patient was transferred to ICU yesterday because of worsening respiratory status and increasing confusion. Ammonia levels were high and she was started on lactulose therapy. Today she is much more awake and alert. She is not BiPAP dependent. She is on 3 L oxygen saturating well. She continues to have significant volume overload PHYSICAL EXAMINATION Vital signs reviewed. Head: Normocephalic. Eyes: Sclerae nonicteric. Neck: Brisk carotid upstroke, JVP could not be assessed due to thick neck Lungs: Poor inspiratory effort, mild crackles audible, Heart: Irregularly irregular pulse, S1-S2 is audible, no murmurs Abdomen: Soft nontender, positive bowel sounds no organomegaly. Extremities: 2+ pitting edema in bilateral 70, admission in bilateral lower extremity Neurological exam, patient is confused not able to answer cushions appropriately. Not following commands. Alert but confused ASSESSMENT Acute hypoxic and hypercapnic respiratory failure Metabolic encephalopathy due to multifactorial reasons Multiple electrolyte abnormalities including hypo-natremia, hyperkalemia LIAM Acute HFpEF exacerbation A. fib RVR. Patient is chronic A. fib Acute COPD exacerbation Severe sepsis Hypertension, dyslipidemia, type 2 diabetes, prior CVA PLAN Continue metoprolol succinate 50 mg daily, Eliquis 5 mg daily Hold spironolactone due to hyperkalemia. Agree with IV Lasix 40 mg twice a day. Check for urine output. Check for any obstructive uropathy with bladder ultrasound and renal ultrasound. Obtain nephrology consult Hold amiodarone for now IV antibiotics as per primary team Infectious workup as per primary team COPD management Objective - Vital Signs Vital signs: Vital Signs Temp 99.1 F 01/31/23 12:00 Pulse 94 01/31/23 14:00 Resp 16 01/31/23 14:00 BP 120/62 01/31/23 14:00 Pulse Ox 95 01/31/23 14:00 FiO2 45 01/31/23 08:00 Intake & Output 01/30/23 01/31/23 01/31/23 18:59 06:59 18:59 Intake Total 100 550.911 580.138 Output Total 1060 1265 550 Balance -960 -714.089 30.138 Weight 102 kg Intake: IV 100 460 100 0.9 NS 100 260 100 Doxycycline 100 mg In 100 Sodium Chloride 0.9% 100 ml @ 100 mls/hr IVPB Q12HR [facility] Rx#:[id number] Piperacillin-Tazobactam 3 100 .375 gm In Sodium Chloride 0.9% 100 ml @ 25 mls/hr IVPB Q12H [facility] Rx# :[id number] Intake, IV Titration 90.911 380.138 Amount Dexmedetomidine/0.9% NaCl 65.744 240.221 (Pmx) 400 mcg In Empty Bag 1 bag @ 0.2 MCG/KG/HR 4.9 mls/hr IV .[id number] [facility] Rx#:[id number] Diltiazem 125 mg In 25.167 39.917 Sodium Chloride 0.9% 100 ml @ Per Protocol IV .Q0M [facility] Rx#:[id number] Sodium Ferric Gluconat- 100 Sucrose 125 mg In Sodium Chloride 0.9% 100 ml @ 100 mls/hr IVPB DAILY [facility] Rx#:[id number] Oral 100 Output: Urine 1060 1265 550 Other: Voiding Method Indwelling Catheter Indwelling Catheter Indwelling Catheter - Labs CBC & Chem 7: 01/31/23 14:05 01/31/23 03:40 Labs: Abnormal Lab Results - Last 24 Hours (Table) 01/31/23 01/31/23 01/31/23 Range/Units 03:40 03:40 03:40 WBC 12.0 H (3.8-10.6) k/uL RBC 3.43 L (3.80-5.40) m/uL Hgb 7.3 L (11.4-16.0) gm/dL Hct 25.2 L (34.0-46.0) % MCV 73.4 L (80.0-100.0) fL MCH 21.2 L (25.0-35.0) pg MCHC 28.9 L (31.0-37.0) g/dL RDW 19.7 H (11.5-15.5) % Plt Count 472 H (150-450) k/uL Neutrophils # 10.8 H (1.3-7.7) k/uL Lymphocytes # 0.5 L (1.0-4.8) k/uL ABG pH (7.35-7.45) ABG pCO2 (35-45) mmHg ABG HCO3 (21-25) mmol/L ABG Total CO2 (19-24) mmol/L ABG O2 Saturation (94-97) % Sodium 132 L (137-145) mmol/L Potassium 5.5 H (3.5-5.1) mmol/L Chloride 89 L (98-107) mmol/L BUN 111 H* (7-17) mg/dL Creatinine 4.58 H (0.52-1.04) mg/dL Glucose 107 H (74-99) mg/dL Iron 23 L (50-170) UG/DL TIBC 461 H (228-460) UG/DL % Saturation 4.99 L (12.00-45.00) Delta Bilirubin 0.7 H (0.0-0.2) mg/dL AST 805 H (14-36) U/L ALT 2347 H (4-34) U/L Total Protein 5.8 L (6.3-8.2) g/dL Albumin 3.4 L (3.5-5.0) g/dL Amylase 348 H* (30-110) U/L Lipase 1070 H (23-300) U/L Vitamin B12 1695.0 H (200.0-944.0) pg/mL 01/31/23 01/31/23 Range/Units 09:54 14:05 WBC 11.8 H (3.8-10.6) k/uL RBC 3.52 L (3.80-5.40) m/uL Hgb 7.4 L (11.4-16.0) gm/dL Hct 25.6 L (34.0-46.0) % MCV 72.7 L (80.0-100.0) fL MCH 21.0 L (25.0-35.0) pg MCHC 28.9 L (31.0-37.0) g/dL RDW 19.9 H (11.5-15.5) % Plt Count (150-450) k/uL Neutrophils # (1.3-7.7) k/uL Lymphocytes # (1.0-4.8) k/uL ABG pH 7.34 L (7.35-7.45) ABG pCO2 60 H (35-45) mmHg ABG HCO3 32 H (21-25) mmol/L ABG Total CO2 34 H (19-24) mmol/L ABG O2 Saturation 97.7 H (94-97) % Sodium (137-145) mmol/L Potassium (3.5-5.1) mmol/L Chloride (98-107) mmol/L BUN (7-17) mg/dL Creatinine (0.52-1.04) mg/dL Glucose (74-99) mg/dL Iron (50-170) UG/DL TIBC (228-460) UG/DL % Saturation (12.00-45.00) Delta Bilirubin (0.0-0.2) mg/dL AST (14-36) U/L ALT (4-34) U/L Total Protein (6.3-8.2) g/dL Albumin (3.5-5.0) g/dL Amylase (30-110) U/L Lipase (23-300) U/L Vitamin B12 (200.0-944.0) pg/mL
[2023-01-31] MEDS: FUROSEMIDE 10 MG/ML 10 ML VIAL IV SCH ×2 (15:56→23:51)
[2023-01-31] MEDS: FORMOTEROL FUMARATE 20 MCG/2 ML NEBU INHALATION SCH (20:08)
[2023-01-31] MEDS: BUDESONIDE 1 MG/2 ML NEBU INHALATION SCH (20:08)
[2023-01-31 21:06] LABS: Anisocytosis Slight; HCT 26.5 % (34.0-46.0); HGB 7.5 gm/dL (11.4-16.0); Hypochromasia Marked; MCH 20.9 pg (25.0-35.0); MCHC 28.2 g/dL (31.0-37.0); MCV 74.4 fL (80.0-100.0); Mean Platelet Volume 7.9; Microcytosis Moderate; Platelet Count 421 k/uL (150-450); Poikilocytosis Slight; RBC 3.56 m/uL (3.80-5.40); RDW 19.8 % (11.5-15.5); WBC 11.8 k/uL (3.8-10.6)
[2023-01-31] MEDS ORDERED: SODIUM CHLORIDE 0.65% NASAL SPRAY 44 ML BTL NASAL PRN (23:16)
[2023-02-01] MEDS ORDERED: ZOLPIDEM 5 MG TAB PO PRN (01:44)
[2023-02-01 05:10] LABS: Anisocytosis Slight; Basophils % (A) 0 %; Eosinophils # (A) 0.1 k/uL (0-0.7); Eosinophils % (A) 1 %; HCT 27.7 % (34.0-46.0); HGB 7.6 gm/dL (11.4-16.0); Hypochromasia Marked; Lymphocytes # (A) 0.4 k/uL (1.0-4.8); Lymphocytes % (A) 3 %; MCH 20.7 pg (25.0-35.0); MCHC 27.4 g/dL (31.0-37.0); MCV 75.4 fL (80.0-100.0); Microcytosis Moderate; Monocytes # (A) 0.5 k/uL (0-1.0); Monocytes % (A) 4 %; Neutrophils # (A) 13.5 k/uL (1.3-7.7); Neutrophils % (A) 92 %; Platelet Count 452 k/uL (150-450); Poikilocytosis Slight; RBC 3.67 m/uL (3.80-5.40); RDW 19.8 % (11.5-15.5); WBC 14.7 k/uL (3.8-10.6)
[2023-02-01 06:07] LABS: African American GFR (CKD) 12 (>60 ml/min/1.73 sqM); Anion Gap 16 mmol/L; Calcium 9.4 mg/dL (8.4-10.2); Carbon Dioxide 30 mmol/L (22-30); Chloride 89 mmol/L (98-107); Glucose 107 mg/dL (74-99); Lipase 593 U/L (23-300); Magnesium 2.1 mg/dL (1.6-2.3); Non-African American GFR(CKD) 10 (>60 ml/min/1.73 sqM); Potassium 4.7 mmol/L (3.5-5.1); Sodium 135 mmol/L (137-145)
[2023-02-01 06:20] LABS: Blood Urea Nitrogen 123 mg/dL (7-17)
[2023-02-01] MEDS: METOPROLOL SUCCINATE (ER) 50 MG TAB.ER.24H PO SCH ×3 (06:35→21:25)
[2023-02-01] MEDS: PIPERACILLIN-TAZOBACTAM 3.375 GM in SODIUM CHLORIDE 0.9% 100 ML IVPB SCH ×2 (06:35→18:11)
--- NOTE | 2023-02-01 07:27 | P.PN ---
Subjective Progress Note Date: 02/01/23 PROGRESS NOTE The patient is a 67-year-old female with chronic persistent atrial fibrillation who presented with change in mental status, worsening renal function and hypoxemia and hypercapnia. She's feeling better today. She continues to be in atrial fibrillation with episodes of rapid ventricle response. She denies any chest discomfort, dizziness or palpitations. She denies any nausea. She is fol lowing commands and appears to be more alert. There is no evidence of hypotension. Her urinary output is being. Her echocardiogram showed a preserved systolic function with no segmental wall motion abnormality. Medications: Lasix 60 mg every 8 hours, metoprolol succinate 50 mg daily, Zosyn. Eliquis 5 mg bid Physical examination: Blood pressure 120/80, heart rate 110 LUNGS: Few crackles bilaterally HEART: Irregular rate and rhythm, S1, S2. No S3. Systolic ejection murmur ABDOMEN: Soft, nontender, no organomegaly EXTREMETIES: +1-2 edema LAB: Hemoglobin 7.6, WBC 14.7. BUN 123, creatinine 4.2. Amylase 372, lipase 593. Ammonia 14. IMPRESSION: 1. Acute hypoxia with hypercapnic episode, improved 2. Chronic persistent atrial fibrillation 3. Heart failure with preserved systolic function 4. Pancreatitis 5. Acute renal injury 6. Acute COPD exacerbation PLAN: 1. Increase beta teja to 50 mg twice a day 2. Follow renal functions 3. Follow amylase and lipase 4. Continue IV diuretics 5. Decrease Eliquis 2.5 mg twice a day and adjust depending on the renal functions Objective - Vital Signs Vital signs: Vital Signs Temp 97.6 F 02/01/23 04:00 Pulse 120 H 02/01/23 07:00 Resp 16 02/01/23 07:00 BP 121/81 02/01/23 07:00 Pulse Ox 97 02/01/23 07:00 FiO2 45 01/31/23 08:00 Intake & Output 01/31/23 02/01/23 02/01/23 18:59 06:59 18:59 Intake Total 958.407 382.794 20 Output Total 1350 2100 80 Balance -391.593 -1717.206 -60 Weight 102.2 kg Intake: IV 320 340 20 0.9 NS 220 240 20 Piperacillin-Tazobactam 3 100 100 .375 gm In Sodium Chloride 0.9% 100 ml @ 25 mls/hr IVPB Q12H [facility] Rx# :[id number] Intake, IV Titration 438.407 42.794 Amount Dexmedetomidine/0.9% NaCl 298.490 42.794 (Pmx) 400 mcg In Empty Bag 1 bag @ 0.2 MCG/KG/HR 4.9 mls/hr IV .[id number] [facility] Rx#:[id number] Diltiazem 125 mg In 39.917 Sodium Chloride 0.9% 100 ml @ Per Protocol IV .Q0M [facility] Rx#:[id number] Sodium Ferric Gluconat- 100 Sucrose 125 mg In Sodium Chloride 0.9% 100 ml @ 100 mls/hr IVPB DAILY [facility] Rx#:[id number] Oral 200 Output: Urine 1350 2100 80 Other: Voiding Method Indwelling Catheter Indwelling Catheter - Labs CBC & Chem 7: 02/01/23 05:02 02/01/23 05:02 Labs: Abnormal Lab Results - Last 24 Hours (Table) 01/31/23 01/31/23 01/31/23 Range/Units 03:40 09:54 14:05 WBC 11.8 H (3.8-10.6) k/uL RBC 3.52 L (3.80-5.40) m/uL Hgb 7.4 L (11.4-16.0) gm/dL Hct 25.6 L (34.0-46.0) % MCV 72.7 L (80.0-100.0) fL MCH 21.0 L (25.0-35.0) pg MCHC 28.9 L (31.0-37.0) g/dL RDW 19.9 H (11.5-15.5) % Plt Count (150-450) k/uL Neutrophils # (1.3-7.7) k/uL Lymphocytes # (1.0-4.8) k/uL ABG pH 7.34 L (7.35-7.45) ABG pCO2 60 H (35-45) mmHg ABG HCO3 32 H (21-25) mmol/L ABG Total CO2 34 H (19-24) mmol/L ABG O2 Saturation 97.7 H (94-97) % Sodium (137-145) mmol/L Chloride (98-107) mmol/L BUN (7-17) mg/dL Creatinine (0.52-1.04) mg/dL Glucose (74-99) mg/dL Iron 23 L (50-170) UG/DL TIBC 461 H (228-460) UG/DL % Saturation 4.99 L (12.00-45.00) Amylase (30-110) U/L Lipase (23-300) U/L Vitamin B12 1695.0 H (200.0-944.0) pg/mL 01/31/23 02/01/23 02/01/23 Range/Units 20:35 05:02 05:02 WBC 11.8 H 14.7 H (3.8-10.6) k/uL RBC 3.56 L 3.67 L (3.80-5.40) m/uL Hgb 7.5 L 7.6 L (11.4-16.0) gm/dL Hct 26.5 L 27.7 L (34.0-46.0) % MCV 74.4 L 75.4 L (80.0-100.0) fL MCH 20.9 L 20.7 L (25.0-35.0) pg MCHC 28.2 L 27.4 L (31.0-37.0) g/dL RDW 19.8 H 19.8 H (11.5-15.5) % Plt Count 452 H (150-450) k/uL Neutrophils # 13.5 H (1.3-7.7) k/uL Lymphocytes # 0.4 L (1.0-4.8) k/uL ABG pH (7.35-7.45) ABG pCO2 (35-45) mmHg ABG HCO3 (21-25) mmol/L ABG Total CO2 (19-24) mmol/L ABG O2 Saturation (94-97) % Sodium 135 L (137-145) mmol/L Chloride 89 L (98-107) mmol/L BUN 123 H* (7-17) mg/dL Creatinine 4.20 H (0.52-1.04) mg/dL Glucose 107 H (74-99) mg/dL Iron (50-170) UG/DL TIBC (228-460) UG/DL % Saturation (12.00-45.00) Amylase 372 H* (30-110) U/L Lipase 593 H (23-300) U/L Vitamin B12 (200.0-944.0) pg/mL
[2023-02-01] MEDS: BUDESONIDE 1 MG/2 ML NEBU INHALATION SCH ×2 (07:49→21:02)
[2023-02-01] MEDS: IPRATROPIUM-ALBUTEROL 3 ML NEB INHALATION SCH ×4 (07:49→21:02)
[2023-02-01] MEDS: FORMOTEROL FUMARATE 20 MCG/2 ML NEBU INHALATION SCH ×2 (07:49→21:04)
[2023-02-01] MEDS: SYMBICORT 160-4.5 MCG INHALER INHALATION SCH (07:54)
[2023-02-01] MEDS: LACTULOSE 20 GM/30 ML CUP PO SCH (08:38)
[2023-02-01] MEDS: FUROSEMIDE 10 MG/ML 10 ML VIAL IV SCH ×2 (08:38→18:10)
[2023-02-01] MEDS: methylPREDNISolone SOD SUCCI 40 MG/ML 1 ML VIAL IV SCH ×2 (08:39→18:11)
[2023-02-01] MEDS: PANTOPRAZOLE 40 MG/10 ML VIAL IVP SCH ×2 (08:39→21:25)
[2023-02-01] MEDS: APIXABAN 2.5 MG TABLET PO SCH ×2 (08:40→21:25)
[2023-02-01] MEDS: DULoxetine HCL 60 MG CAPSULE.DR PO SCH (08:40)
[2023-02-01] MEDS: SODIUM FERRIC GLUCONAT-SUCROSE 125 MG in SODIUM CHLORIDE 0.9% 100 ML IVPB SCH (08:58)
--- NOTE | 2023-02-01 09:05 | XR ---
EXAMINATION TYPE: XR chest 1V portable DATE OF EXAM: 02/01/2023 COMPARISON: 01/31/2023 HISTORY: Shortness of breath TECHNIQUE: Single frontal view of the chest is obtained. FINDINGS: Heart is enlarged and there is patchy bilateral areas of infiltrate. No pleural effusion o r pneumothorax. Limited inspiration. Osseous structures stable. IMPRESSION: Cardiomegaly with bilateral interstitial edema or pneumonitis with superimposed perihila r and lower lobe atelectasis or pneumonia.
[2023-02-01] MEDS: SODIUM CHLORIDE 0.9% 500 ML 500 ML IV SCH (11:29)
--- NOTE | 2023-02-01 11:36 | P.PN ---
Subjective Patient is seen in follow-up for acute kidney injury. Creatinine 4.2. Nonoliguric. On IV Lasix. Currently on clear liquid diet. On nasal cannula. Denies chest pain or shortness of breath. Vital signs are stable. General: No acute distress. HEENT: Head exam is unremarkable. On nasal cannula. LUNGS: No audible rhonchi or wheezes. HEART: Rate and Rhythm are regular. ABDOMEN: Nontender. EXTREMITITES: 1+ edema. Objective - Vital Signs Vital signs: Vital Signs Temp 98.3 F 02/01/23 08:00 Pulse 114 H 02/01/23 11:18 Resp 20 02/01/23 10:00 BP 118/82 02/01/23 10:00 Pulse Ox 96 02/01/23 10:00 FiO2 45 01/31/23 08:00 Intake & Output 01/31/23 02/01/23 02/01/23 18:59 06:59 18:59 Intake Total 958.407 382.794 400 Output Total 1350 2100 305 Balance -391.593 -1717.206 95 Weight 102.2 kg Intake: IV 320 340 180 0.9 NS 220 240 80 Piperacillin-Tazobactam 3 100 100 100 .375 gm In Sodium Chloride 0.9% 100 ml @ 25 mls/hr IVPB Q12H [facility] Rx# :[id number] Intake, IV Titration 438.407 42.794 100 Amount Dexmedetomidine/0.9% NaCl 298.490 42.794 (Pmx) 400 mcg In Empty Bag 1 bag @ 0.2 MCG/KG/HR 4.9 mls/hr IV .[id number] [facility] Rx#:[id number] Diltiazem 125 mg In 39.917 Sodium Chloride 0.9% 100 ml @ Per Protocol IV .Q0M [facility] Rx#:[id number] Sodium Ferric Gluconat- 100 100 Sucrose 125 mg In Sodium Chloride 0.9% 100 ml @ 100 mls/hr IVPB DAILY [facility] Rx#:[id number] Oral 200 120 Output: Urine 1350 2100 305 Other: Voiding Method Indwelling Catheter Indwelling Catheter Indwelling Catheter - Labs CBC & Chem 7: 02/01/23 05:02 02/01/23 05:02 Labs: Abnormal Lab Results - Last 24 Hours (Table) 01/31/23 01/31/2323 Range/Units 03:40 14:05 20:35 WBC 11.8 H 11.8 H (3.8-10.6) k/uL RBC 3.52 L 3.56 L (3.80-5.40) m/uL Hgb 7.4 L 7.5 L (11.4-16.0) gm/dL Hct 25.6 L 26.5 L (34.0-46.0) % MCV 72.7 L 74.4 L (80.0-100.0) fL MCH 21.0 L 20.9 L (25.0-35.0) pg MCHC 28.9 L 28.2 L (31.0-37.0) g/dL RDW 19.9 H 19.8 H (11.5-15.5) % Plt Count (150-450) k/uL Neutrophils # (1.3-7.7) k/uL Lymphocytes # (1.0-4.8) k/uL Sodium (137-145) mmol/L Chloride (98-107) mmol/L BUN (7-17) mg/dL Creatinine (0.52-1.04) mg/dL Glucose (74-99) mg/dL Iron 23 L (50-170) UG/DL TIBC 461 H (228-460) UG/DL % Saturation 4.99 L (12.00-45.00) Amylase (30-110) U/L Lipase (23-300) U/L Vitamin B12 1695.0 H (200.0-944.0) pg/mL 02/01/23 02/01/23 Range/Units 05:02 05:02 WBC 14.7 H (3.8-10.6) k/uL RBC 3.67 L (3.80-5.40) m/uL Hgb 7.6 L (11.4-16.0) gm/dL Hct 27.7 L (34.0-46.0) % MCV 75.4 L (80.0-100.0) fL MCH 20.7 L (25.0-35.0) pg MCHC 27.4 L (31.0-37.0) g/dL RDW 19.8 H (11.5-15.5) % Plt Count 452 H (150-450) k/uL Neutrophils # 13.5 H (1.3-7.7) k/uL Lymphocytes # 0.4 L (1.0-4.8) k/uL Sodium 135 L (137-145) mmol/L Chloride 89 L (98-107) mmol/L BUN 123 H* (7-17) mg/dL Creatinine 4.20 H (0.52-1.04) mg/dL Glucose 107 H (74-99) mg/dL Iron (50-170) UG/DL TIBC (228-460) UG/DL % Saturation (12.00-45.00) Amylase 372 H* (30-110) U/L Lipase 593 H (23-300) U/L Vitamin B12 (200.0-944.0) pg/mL Assessment and Plan Plan: Assessment: 1. Acute kidney injury secondary to ATN secondary to hypotension and component of cardiorenal syndrome. UA benign. No hydronephrosis noted on CT. Creatinine 1 in July 2021. Creatinine peaked at 4.5 at this admission and is 4.2 today. Nonoliguric. Elevated BUN partially due to steroids. 2. Volume overload. 3. Acute on chronic diastolic CHF with moderate pulmonary hypertension. 4. Acute pancreatitis. Currently on clear liquid diet. 5. Anemia with severe iron deficiency receiving IV iron. 6. Acute hypoxic and hypercapnic respiratory failure. 7. Hyperkalemia secondary to acute kidney injury. Improved. Plan: Maintain IV Lasix. Diet per surgery. Avoid nephrotoxins. Continue to monitor renal function and urine output. Continue to assess daily for need for renal replacement therapy. No urgency at this time.
--- NOTE | 2023-02-01 12:47 | P.PN ---
Subjective Progress Note Date: 02/01/23 CHIEF COMPLAINT: Pancreatitis HISTORY OF PRESENT ILLNESS: The patient is a 67 year old female with new pa ncreatitis including hypercarbia, exacerbation of congestive heart failure. Patient denies any abdominal pain. Denies any nausea vomiting. She reports a small stool. Afebrile. She is mildly tachycardic. WBC 11.8 up to 14.7 Hgb 7.6 platelets 452 creatinine 4.20 lipase is down from 1070-593. Cardiology has increased beta teja. PHYSICAL EXAM: VITAL SIGNS: Reviewed GENERAL: Well-developed in no acute distress. HEENT: No sclera icterus. Extraocular movements grossly intact. Moist buccal mucosa. Head is atraumatic, normocephalic. Hears conversational speech. No nasal drainage. NECK: Supple without lymphadenopathy. CHEST: Non-labored respirations and equal bilateral excursions. CARDIOVASCULAR: Palpable 2+ radial pulses. ABDOMEN: Soft. Nondistended. Nontender. MUSCULOSKELETAL: No clubbing or cyanosis. NEUROLOGIC: No focal or lateralizing signs. Cranial nerves II through XII grossly intact. PSYCH: Appropriate affect. Alert and oriented to person, place and time. SKIN: Well perfused. Good skin turgor. ASSESSMENT: 1. Pancreatitis her computed tomography scan 2. Ileus 3. Leukocytosis 4. Anemia 5. Hyperkalemia 6. Acute kidney failure 7. Elevated LFTs 8. Liver shock 9. Metabolic encephalopathy PLAN: -Advance diet to clear liquids -Continue to monitor -Repeat lipase in a.m. Physician [employer] Officer note has been reviewed by physician. Signing provider agrees with the documented findings, assessment, and plan of care. Objective - Vital Signs Vital signs: Vital Signs Temp 98.3 F 02/01/23 08:00 Pulse 121 H 02/01/23 10:00 Resp 20 02/01/23 10:00 BP 118/82 02/01/23 10:00 Pulse Ox 96 02/01/23 10:00 FiO2 45 01/31/23 08:00 Intake & Output 01/31/23 02/01/23 02/01/23 18:59 06:59 18:59 Intake Total 958.407 382.794 400 Output Total 1350 2100 305 Balance -391.593 -1717.206 95 Weight 102.2 kg Intake: IV 320 340 180 0.9 NS 220 240 80 Piperacillin-Tazobactam 3 100 100 100 .375 gm In Sodium Chloride 0.9% 100 ml @ 25 mls/hr IVPB Q12H [facility] Rx# :[id number] Intake, IV Titration 438.407 42.794 100 Amount Dexmedetomidine/0.9% NaCl 298.490 42.794 (Pmx) 400 mcg In Empty Bag 1 bag @ 0.2 MCG/KG/HR 4.9 mls/hr IV .[id number] [facility] Rx#:[id number] Diltiazem 125 mg In 39.917 Sodium Chloride 0.9% 100 ml @ Per Protocol IV .Q0M [facility] Rx#:[id number] Sodium Ferric Gluconat- 100 100 Sucrose 125 mg In Sodium Chloride 0.9% 100 ml @ 100 mls/hr IVPB DAILY [facility] Rx#:[id number] Oral 200 120 Output: Urine 1350 2100 305 Other: Voiding Method Indwelling Catheter Indwelling Catheter Indwelling Catheter - Labs CBC & Chem 7: 02/01/23 05:02 02/01/23 05:02 Labs: Abnormal Lab Results - Last 24 Hours (Table) 01/31/23 01/31/23 01/31/23 Range/Units 03:40 14:05 20:35 WBC 11.8 H 11.8 H (3.8-10.6) k/uL RBC 3.52 L 3.56 L (3.80-5.40) m/uL Hgb 7.4 L 7.5 L (11.4-16.0) gm/dL Hct 25.6 L 26.5 L (34.0-46.0) % MCV 72.7 L 74.4 L (80.0-100.0) fL MCH 21.0 L 20.9 L (25.0-35.0) pg MCHC 28.9 L 28.2 L (31.0-37.0) g/dL RDW 19.9 H 19.8 H (11.5-15.5) % Plt Count (150-450) k/uL Neutrophils # (1.3-7.7) k/uL Lymphocytes # (1.0-4.8) k/uL Sodium (137-145) mmol/L Chloride (98-107) mmol/L BUN (7-17) mg/dL Creatinine (0.52-1.04) mg/dL Glucose (74-99) mg/dL Iron 23 L (50-170) UG/DL TIBC 461 H (228-460) UG/DL % Saturation 4.99 L (12.00-45.00) Amylase (30-110) U/L Lipase (23-300) U/L Vitamin B12 1695.0 H (200.0-944.0) pg/mL 02/01/23 02/01/23 Range/Units 05:02 05:02 WBC 14.7 H (3.8-10.6) k/uL RBC 3.67 L (3.80-5.40) m/uL Hgb 7.6 L (11.4-16.0) gm/dL Hct 27.7 L (34.0-46.0) % MCV 75.4 L (80.0-100.0) fL MCH 20.7 L (25.0-35.0) pg MCHC 27.4 L (31.0-37.0) g/dL RDW 19.8 H (11.5-15.5) % Plt Count 452 H (150-450) k/uL Neutrophils # 13.5 H (1.3-7.7) k/uL Lymphocytes # 0.4 L (1.0-4.8) k/uL Sodium 135 L (137-145) mmol/L Chloride 89 L (98-107) mmol/L BUN 123 H* (7-17) mg/dL Creatinine 4.20 H (0.52-1.04) mg/dL Glucose 107 H (74-99) mg/dL Iron (50-170) UG/DL TIBC (228-460) UG/DL % Saturation (12.00-45.00) Amylase 372 H* (30-110) U/L Lipase 593 H (23-300) U/L Vitamin B12 (200.0-944.0) pg/mL
--- NOTE | 2023-02-01 13:23 | P.PN ---
Subjective This is a pleasant 67 years old female with past medical history of CVA/TIA, Fibromyalgia, Hyperlipidemia, Hypertension, Memory Impairment, Osteoarthritis ,chronic neck and back pain, ddd, ARTHRITIS, USES CANE NEEDED FOR FIBROMYALGIA, s/p cervical fusion,, Anxiety, Depression, Panic Disorder, Current every day smoker Patient presents because of generalized weakness and drowsiness and inability to get up. Patient also was confused. Took extra dose of Klonopin that does not belong to her Results the patient she was looking tired, she was on BiPAP machine which limits her ability to provide information however she follow commands appropriately. She can't tell she is in the hospital the year and the name of the president. She says she's been having some difficulty breathing for around 2 days, no report of coughing. When I asked her she denies chest pain or abdominal pain. Her abdomen looks soft. No vomiting or diarrhea. No weakness or numbness. patient is afebrile, mildly tachycardic and hypoxic and she was saturating 81-91 on 4 L oxygen via nasal cannula patient currently on BiPAP with improved saturation patient has significant leukocytosis of 22.5, hemoglobin 8.6. Platelet count 681. INR 1.6. PH 7.11, pCO2 elevated 85 nothing by mouth to allow 56. Sodium 132, potassium 6, creatinine 3.6, previously was within the reference range. Bilirubin is in within the reference range at 1.1 but AST elevated 3376 and ALT 2982 area Troponin is elevated 0.073. ProBNP is high 11 700 urine analysis is negative. Urine drug screen is positive for opiates, oxycodone and tricyclic antidepressant while serum alcohol less than 10. Chest x-ray: Cardiomegaly with possible pulmonary congestion CT of the brain: No acute process. Atrophic changes EKG: Atrial fibrillation with a rate of 83 with right axis deviation and right bundle branch block and QTC 474 patient was started on Solu-Medrol, IV Lasix 01/30/2023 Patient still confused, she still on BiPAP setting of 15/5 with FiO2 of 45% She still have evidence of acidosis with pH of 7.2, pCO2 worse little today more than 70 compared to 60 yesterday. Her oxygen saturation is acceptable, she is afebrile and the rest of vitals stable although she still tachycardic at 111 Her abdomen looks mildly distended but soft area. There is decreased air entry on both sides no wheezing. No leg swelling. Pupils are equal and reactive to light. Her leukocytosis is improved to to 15,000, hemoglobin is stable at 8.2, INR 1.6. Creatinine is stable at 4.4 which is elevated. Liver enzymes elevated, bilirubin is within the reference range. When he is for the patient was placed on lactulose. Production calcitonin is elevated at 0.77. Creatinine Is 471. Echocardiogram: Showed severe right ventricular dilatation with moderate pulmonary hypertension CAT scan of the abdomen and pelvis without contrast showing ileus and mild pancreatitis. Surgical consult is requested. Prognosis is guarded I talked to the Mr. Dunn over the phone and updated the case with him, he says that the patient was sick for the last 2-3 days before hospitalization that she was sleeping a lot. I asked him what her klonopin and he said he takes it for anxiety note for seizure. because of her Change in mentation we going to taper down her klonopin Down to 0.5 daily. 01/31/2023 Patient remains in the ICU in critical condition, she is confused and she is on a Precedex, she could not provide information although she opens eyes continuously and moans. She does not answer questions and she does not follow commands. She still on BiPAP. Her abdomen looks soft still distended. Does not look tender on examination which is limited by her mentation changes. The leg swelling. Weaver catheter in place. NG tube was taken out. Under Repeat chest x-ray from today showing improvement since admission she is on IV Lasix. Yesterday she had about 1.5 L out. Patient remains nothing by mouth because of her pancreatitis and mentation changes. Patient has elevated amylase lipase and CAT scan showing pancreatitis. Of note, patient given because of her CHF actually she is on IV Lasix. Creatinine remains elevated 4.4 but stable, potassium 5.5 which is stable. Liver enzymes actually trending down with AST 805, ALT 2347. Most likely her transaminitis is secondary to her pancreatitis. Also patient cannot tolerate all of a sudden she is not taking Eliquis therefore we might use alternative however him hemoglobin dropped from 8.2 down to 7.3 therefore going to do anemia workup and monitor hemoglobin closely before restarting anticoagulation Elliott is controlled while she is presented 5 mg/h (patient cannot take oral beta teja as well) over her blood pressure is slightly lower. Still systolic more than 100. She remains on Zosyn, doxycycline, some internal 60 mg, IV Lasix 40 mg 3 times a day, IV Protonix 40 mg. Ammonia actually coming down today and is normal at 23. Erin is on hold 02/01/2023 pt today is back to basic mentation baseline, she is fully awake and oriented She does not look in distress, his breathing is also improved and she is currently on nasal cannula. She is hemodynamically stable except for tachycardia with heart rate around 112. Beta teja has been increased to 50 mg daily. Her WBCs 14,000, hemoglobin stable at 7.6 and her dose of Eliquis decreased to renal dose of 2.5. Creatinine remains elevated but stable at 4.2 but patient making urine, however phlebotomy tech considering her renal replacement therapy to be decided. Her enzymes and lipase are trending down, looks like her pancreatitis is also improving, no abdominal pain, no vomiting. Diet is going to be a transplant surgery team. Remains on Zosyn, so Medrol 40 mg and Lasix 60 mg every 8 hours Active Medications Generic Name Dose Route Start Last Admin Trade Name Freq PRN Reason Stop Dose Admin Acetaminophen 650 mg 01/28/23 17:56 Acetaminophen Tab 325 Mg Tab PO Q4HR PRN Mild Pain or Fever > 100.5 Albuterol/Ipratropium 3 ml 01/28/23 20:00 02/01/23 11:07 Ipratropium-Albuterol 3 Ml Neb INHALATION 3 ml RT-QID [facility] Administration Albuterol/Ipratropium 3 ml 01/28/23 17:56 Ipratropium-Albuterol 3 Ml Neb INHALATION RT-Q2H PRN Shortness Of Breath Or Wheezing Apixaban 2.5 mg 02/01/23 09:00 02/01/23 08:40 Apixaban 2.5 Mg Tablet PO 2.5 mg BID [facility] Administration Protocol Budesonide 1 mg 01/31/23 20:00 02/01/23 07:49 Budesonide 1 Mg/2 Ml Nebu INHALATION 1 mg RT-BID [facility] Administration Duloxetine HCl 120 mg 01/29/23 09:00 02/01/23 08:40 Duloxetine Hcl 60 Mg Capsule. PO 120 mg DAILY [facility] Administration Formoterol Fumarate 20 mcg 01/31/23 20:00 02/01/23 07:49 Formoterol Fumarate 20 Mcg/2 Ml Nebu INHALATION 20 mcg RT-BID [facility] Administration Furosemide 60 mg 01/31/23 16:00 02/01/23 08:38 Furosemide 10 Mg/Ml 10 Ml Vial IV 60 mg Q8HR [facility] Administration Ferric Sodium Gluconate 125 mg 110 mls @ 100 mls/hr 01/30/23 09:45 02/01/23 08:58 / Sodium Chloride IVPB 100 mls/hr DAILY [facility] Administration Piperacillin Sod/Tazobactam 100 mls @ 25 mls/hr 01/30/23 18:00 02/01/23 06:35 Sod 3.375 gm/ Sodium Chloride IVPB 25 mls/hr Q12H [facility] Administration Protocol Sodium Chloride 500 mls @ 20 mls/hr 02/01/23 10:45 02/01/23 11:29 Saline 0.9% IV 20 mls/hr .Q24H [facility] Administration Lactulose 20 gm 01/31/23 11:45 02/01/23 08:38 Lactulose 20 Gm/30 Ml Cup PO 20 gm DAILY [facility] Administration Methylprednisolone Sodium Succinate 40 mg 01/30/23 16:00 02/01/23 08:39 Methylprednisolone Sod Succi 40 Mg/Ml 1 Ml Vial IV 40 mg Q8HR [facility] Administration Metoprolol Succinate 50 mg 02/01/23 09:00 02/01/23 08:42 Metoprolol Succinate (Er) 50 Mg Tab.Er.24h PO Not Given BID [facility] Naloxone HCl 0.2 mg 01/28/23 17:56 Naloxone 0.4 Mg/Ml 1 Ml Vial IVP Q2M PRN Opioid Reversal Pantoprazole Sodium 40 mg 01/29/23 23:15 02/01/23 08:39 Pantoprazole 40 Mg/10 Ml Vial IVP 40 mg BID [facility] Administration Sodium Chloride 2 spray 01/31/23 23:16 Sodium Chloride 0.65% Nasal Mather 44 Ml Btl NASAL QID PRN Dry Nasal Passages Zolpidem Tartrate 5 mg 02/01/23 01:44 02/01/23 01:54 Zolpidem 5 Mg Tab PO 5 mg HS PRN Administration Insomnia Objective - Vital Signs Vital signs: Vital Signs Temp 98.3 F 02/01/23 08:00 Pulse 114 H 02/01/23 11:18 Resp 20 02/01/23 10:00 BP 118/82 02/01/23 10:00 Pulse Ox 96 02/01/23 10:00 FiO2 45 01/31/23 08:00 Intake & Output 01/31/23 02/01/23 02/01/23 18:59 06:59 18:59 Intake Total 958.407 382.794 420 Output Total 1350 2100 880 Balance -391.593 -1717.206 -460 Weight 102.2 kg Intake: IV 320 340 200 0.9 NS 220 240 100 Piperacillin-Tazobactam 3 100 100 100 .375 gm In Sodium Chloride 0.9% 100 ml @ 25 mls/hr IVPB Q12H [facility] Rx# :[id number] Intake, IV Titration 438.407 42.794 100 Amount Dexmedetomidine/0.9% NaCl 298.490 42.794 (Pmx) 400 mcg In Empty Bag 1 bag @ 0.2 MCG/KG/HR 4.9 mls/hr IV .[id number] [facility] Rx#:[id number] Diltiazem 125 mg In 39.917 Sodium Chloride 0.9% 100 ml @ Per Protocol IV .Q0M [facility] Rx#:[id number] Sodium Ferric Gluconat- 100 100 Sucrose 125 mg In Sodium Chloride 0.9% 100 ml @ 100 mls/hr IVPB DAILY [facility] Rx#:[id number] Oral 200 120 Output: Urine 1350 2100 880 Other: Voiding Method Indwelling Catheter Indwelling Catheter Indwelling Catheter - Exam -GENERAL: The patient is alert and confused on BiPAP, tired, she follows commands, not in any acute distress. Well developed, well nourished. HEENT: Pupils are round and equally reacting to light. EOMI. No scleral icterus. No conjunctival pallor. Normocephalic, atraumatic. No pharyngeal erythema. No thyromegaly. CARDIOVASCULAR: S1 and S2 present. No murmurs, rubs, or gallops. -PULMONARY: Decreased air entry in both sides, no wheezing , no crackles. On BiPAP -ABDOMEN: Soft, nontender, distended, normoactive bowel sounds. No palpable organomegaly. Weaver catheter in place MUSCULOSKELETAL: No joint swelling or deformity. EXTREMITIES: No cyanosis, clubbing, or pedal edema. NEUROLOGICAL: Gross neurological examination did not reveal any focal deficits. SKIN: No rashes. no petechiae. - Labs CBC & Chem 7: 02/01/23 05:02 02/01/23 05:02 Labs: Abnormal Lab Results - Last 24 Hours (Table) 01/31/23 01/31/23 01/31/23 Range/Units 03:40 14:05 20:35 WBC 11.8 H 11.8 H (3.8-10.6) k/uL RBC 3.52 L 3.56 L (3.80-5.40) m/uL Hgb 7.4 L 7.5 L (11.4-16.0) gm/dL Hct 25.6 L 26.5 L (34.0-46.0) % MCV 72.7 L 74.4 L (80.0-100.0) fL MCH 21.0 L 20.9 L (25.0-35.0) pg MCHC 28.9 L 28.2 L (31.0-37.0) g/dL RDW 19.9 H 19.8 H (11.5-15.5) % Plt Count (150-450) k/uL Neutrophils # (1.3-7.7) k/uL Lymphocytes # (1.0-4.8) k/uL Sodium (137-145) mmol/L Chloride (98-107) mmol/L BUN (7-17) mg/dL Creatinine (0.52-1.04) mg/dL Glucose (74-99) mg/dL Iron 23 L (50-170) UG/DL TIBC 461 H (228-460) UG/DL % Saturation 4.99 L (12.00-45.00) Amylase (30-110) U/L Lipase (23-300) U/L Vitamin B12 1695.0 H (200.0-944.0) pg/mL 02/01/23 02/01/23 Range/Units 05:02 05:02 WBC 14.7 H (3.8-10.6) k/uL RBC 3.67 L (3.80-5.40) m/uL Hgb 7.6 L (11.4-16.0) gm/dL Hct 27.7 L (34.0-46.0) % MCV 75.4 L (80.0-100.0) fL MCH 20.7 L (25.0-35.0) pg MCHC 27.4 L (31.0-37.0) g/dL RDW 19.8 H (11.5-15.5) % Plt Count 452 H (150-450) k/uL Neutrophils # 13.5 H (1.3-7.7) k/uL Lymphocytes # 0.4 L (1.0-4.8) k/uL Sodium 135 L (137-145) mmol/L Chloride 89 L (98-107) mmol/L BUN 123 H* (7-17) mg/dL Creatinine 4.20 H (0.52-1.04) mg/dL Glucose 107 H (74-99) mg/dL Iron (50-170) UG/DL TIBC (228-460) UG/DL % Saturation (12.00-45.00) Amylase 372 H* (30-110) U/L Lipase 593 H (23-300) U/L Vitamin B12 (200.0-944.0) pg/mL Assessment and Plan Assessment: Acute COPD exacerbation Acute hypoxemic hypercapnic respiratory failure Acute respiratory acidosis combined with metabolic acidosis Metabolic/toxic encephalopathy, Acute pancreatitis Acute renal failure with hyperkalemia, present on admission cute congestive heart failure with echo shows severely dilated right ventricle and right atrium transamnitis Atrial fibrillation Anemia Possible colitis with ileus Moderate pulmonary hypertension Chronic atrial fibrillation Hypochromic, microcytic anemia History of CVA/TIA Hypertension Hyperlipidemia History of memory impairment History of osteo-arthritis Chronic neck and back pain status post cervical fusion surgery. Anxiety depression and panic disorder, not in active tissue Plan: Continue with IV Lasix Continue with IV Solu-Medrol 60 mg Continue with antibiotics Zosyn Resume home dose of Eliquis 2.5 mg (patient cannot tolerate oral however because of her anemia with holding on anticoagulation to stabilize her hemoglobin first controlled gently of bleeding from somewhere else) we will do anemia workup. continue with Protonix. Continue with a breathing treatment of bronchodilator Cardiology, pulmonary and nephrology consult on the case Gen. surgery consult also the case Continue with Weaver catheter Labs and medication were reviewed.. Continue same treatment. Continue with symptomatic treatment. Resume home medication. Monitor labs and vitals. DVT and GI prophylaxis. Further recommendations as per clinical course of the pat ient DVT prophylaxis: Eliquis GI Prophylaxis: Pepcid PT/OT: Pending Prognosis is guarded
--- NOTE | 2023-02-01 13:27 | CDI ---
Documentation Clarification Form Date: 02/01/2023 11:35:41 AM From: Alyce Dale RN, CCDS Admit Date: 01/28/2023 05:56:00 PM Patient Name: Lindsay Dunn Visit Number: [id number] Discharge Date: ATTENTION: The Clinical Documentation Specialists (CDI) and [facility] Coding Staff appreciate your assistance in clarifying documentation. Please respond to the clarification below the line at the bottom and electronically sign. The CDI & [facility] Coding staff will review the response and follow-up if needed. Please note: Queries are made part of the Legal Health Record. If you have any questions, please contact the author of this message via ITS. Dr. Angel Sumner The patient has sepsis documented in the Cardiology consult and subsequent progress notes starting on 01/29/23. Based on this information and the findings below, is there an additional diagnosis that is clinically appropriate for this patient? History/Risk Factors: CVA/TIA, Fibromyalgia, Hyperlipidemia, Hypertension, Memory Impairment, Osteoarthritis (OA),Current every day smoker Clinical Indicators: 67 years old female presents with generalized weakness and confusion. Labs: WBC 22.5, 01/28 Labs: HGB 8.6, Neutrophils 20.40, Potassium 6.0, BUN 62, CR 3.65, Trop 0.073, BNP 08008, AST 07732, ALT 2982 UDS Positive 01/28 ABG: pH 7.11 01/29 Procalcitonin 0.77 01/28 CXR: Continued cardiomegaly with pulmonary venous congestion 01/30 CT abd/pelvis: Correlate for mild pancreatitis. Colonic dilation with debris seen within the colon. Correlate for colonic 01/28 VS: 108/91 104 18 97.8 91% 4/L NC Treatment: Zosyn 3.375 GM IVPB Q 8 HRS 01/30 Doxycycline Hyclate 100MG IVPB Q 12 HRS 01/29-01/31 Is there an additional diagnosis that is clinically appropriate for this patient? [ x] Sepsis, present on admission [ ] Sepsis ruled out [ ] Other, please specify [ ] Unable to determine SIRS Criteria: 2 or more of the following may indicate SIRS Temperature < 96.8F (36C) or > 101.0F (38.3C) Heart Rate > 90 bpm Respiratory Rate > 20 breaths/min or PaCO2 < 32 mmHg White Blood Cell Count > 12,000 or < 4,000 cells/mm3 or > 10% bands (Template Last Reviewed: April 2022) [facility]
--- NOTE | 2023-02-01 13:36 | P.PN ---
Subjective Progress Note Date: 02/01/23 This is a 67-year-old female with a known history of hypertension, hyperlipidemia, fibromyalgia, CVA/TIA, memory impairment, anxiety/depression/panic disorder, chronic and ongoing tobacco dependence. She was brought into the emergency room by her to start afternoon after finding her to be quite drowsy. He had trouble getting her up. She had trouble bearing her own weight. She was confused. Apparently she had taken extra Klonopin. Computed tomography scan of the brain revealed chronic small vessel ischemic changes without acute intracranial process. Chest x-ray revealed chronic changes but no acute pulmonary disease. Echocardiogram revealed preserved left ventricular systolic function. Severe right ventricular enlargement with moderate pulmonary hypertension. Abdominal ultrasound revealed no acute process. White count 18.2. Hemoglobin 8.3. Platelets 605. Sodium 129. Potassium 6.4. Bicarb 25. BUN 82. Creatinine 4.25. AST 4961. ALT 4711. Ammonia level XL. Creatinine kinase 471. BNP 11,700. Urine drug screen positive for opiates, oxycodone, tricyclic antidepressants. Initial arterial blood gases on 36% FiO2 revealed a P O2 of 38, pCO2 of 100 and a pH of 7.05. She was placed on BiPAP 15/5 and 32% FiO2 and follow-up blood gases revealed a pO2 of 56, pCO2 of 85 and a pH of 7.11. She is seen today in consultation in the emergency department. She is currently resting on a stretcher. Arousable. Not able to give much information. Follow-up arterial blood gases on 36% FiO2 revealed a pO2 of 69, pCO2 of 63 and a pH of 7.23. Patient was reevaluated today on 01/30/2023, patient remains on BiPAP, continues to be confused, she is arousable, but does not seem to be quite alert and oriented. In spite of being on BiPAP for the last 24 hours, repeat ABG on 40% FiO2 with IPAP of 16 and EPAP of 6 showed a pO2 of 56 E. CO2 74 and pH of 7.22 which is clearly a worsening ABG compared to the ABG noted yesterday. With worsening hypoxia worsening hypercapnia and worsening pH. Hence after evaluating the patient I recommended immediate transfer to the ICU and will continue BiPAP, we will check a follow-up chest x-ray, if the patient does not improve much, and we will continue diuretics, may have to consider intubating the patient and placement on mechanical ventilation. Chest x-ray this morning continues to show cardiomegaly and interstitial edema, doubt underlying pneumonia. WBC count today is 15.7 hemoglobin is 8.2 sodium is 130 potassium 5.8 BUN is 105 creatinine 4.41. Liver enzymes are worsening with worsening AST of over 1500, ALT was close to 5000s, CPK is 471 Procalcitonin is 0.77, CT of the abdomen and pelvis showed mild pancreatitis with colonic dilatation suggestive of colonic ileus. Patient was seen by general surgery on consulta tion for her abnormal CT of the abdomen and pelvis and recommended mostly conservative measures Reevaluated today on 01/31/2023, patient was transferred to ICU yesterday, remains in the ICU, remains on BiPAP 15/45%. Overnight the patient was extremely agitated and restless, and kept pulling her BiPAP, hence she was placed on Precedex which is now at 1 mcg/kg/h. For her atrial fibrillation with RVR remains on Cardizem at 5 mg per hour. Patient remains on Zosyn she also remains on Lasix at 40 mg IV push every 8 hours. Chest x-ray is showing definite improvement. Follow-up ABG today on the BiPAP showed significant improvement compared to yesterday with improving oxygenation pO2 105 improving pCO2 down to 60 from 74 and improving pH from 7.22 to 7.34 liver enzymes are elevated but improving and malaise is elevated at 348 and lipase is 1070 chest x-ray is showing improvement in her interstitial edema but not fully resolved. The patient is seen today 02/01/2023 in follow-up in the intensive care unit. She is awake and alert in no acute distress. Sitting up in bed. She is curren tly off the BiPAP. She is maintaining good O2 saturations in the 90s on 4 L/m per nasal cannula. She is receiving normal saline at 20 ML's per hour. White count 14.7. Hemoglobin 7.6. Platelets 452. Sodium 135. Potassium 4.7. Bicarb 30. BUN 123. Creatinine 4.20. Glucose 107. Amylase 372. Lipase 593. She is currently in a -2.1 L balance. She remains on Lasix 60 mg every 8 hours. Continue bronchodilators and steroids. Anticoagulated with Eliquis. Antibiotics in the form of Zosyn. Objective - Vital Signs Vital signs: Vital Signs Temp 98.3 F 02/01/23 08:00 Pulse 114 H 02/01/23 11:18 Resp 20 02/01/23 10:00 BP 118/82 02/01/23 10:00 Pulse Ox 96 02/01/23 10:00 FiO2 45 01/31/23 08:00 Intake & Output 01/31/23 02/01/23 02/01/23 18:59 06:59 18:59 Intake Total 958.407 382.794 420 Output Total 1350 2100 880 Balance -391.593 -1717.206 -460 Weight 102.2 kg Intake: IV 320 340 200 0.9 NS 220 240 100 Piperacillin-Tazobactam 3 100 100 100 .375 gm In Sodium Chloride 0.9% 100 ml @ 25 mls/hr IVPB Q12H [facility] Rx# :[id number] Intake, IV Titration 438.407 42.794 100 Amount Dexmedetomidine/0.9% NaCl 298.490 42.794 (Pmx) 400 mcg In Empty Bag 1 bag @ 0.2 MCG/KG/HR 4.9 mls/hr IV .[id number] [facility] Rx#:[id number] Diltiazem 125 mg In 39.917 Sodium Chloride 0.9% 100 ml @ Per Protocol IV .Q0M [facility] Rx#:[id number] Sodium Ferric Gluconat- 100 100 Sucrose 125 mg In Sodium Chloride 0.9% 100 ml @ 100 mls/hr IVPB DAILY [facility] Rx#:[id number] Oral 200 120 Output: Urine 1350 2100 880 Other: Voiding Method Indwelling Catheter Indwelling Catheter Indwelling Catheter - Exam GENERAL EXAM: Alert, oriented, very pleasant 67-year-old female, on 4 L nasal cannula, comfortable in no apparent distress. HEAD: Normocephalic. EYES: Normal reaction of pupils, equal size. NOSE: Clear with pink turbinates. THROAT: No erythema or exudates. NECK: No masses, no JVD. CHEST: No chest wall deformity. LUNGS: Equal air entry with bilateral end expiratory wheeze, few scattered rhonchi. CVS: S1 and S2 normal with no audible murmur, regular rhythm. ABDOMEN: No hepatosplenomegaly, normal bowel sounds, no guarding or rigidity. SPINE: No scoliosis or deformity SKIN: No rashes CENTRAL NERVOUS SYSTEM: No focal deficits, tone is normal in all 4 extremities. EXTREMITIES: There is no peripheral edema. No clubbing, no cyanosis. Peripheral pulses are intact. - Labs CBC & Chem 7: 02/01/23 05:02 02/01/23 05:02 Labs: Abnormal Lab Results - Last 24 Hours (Table) 01/31/23 01/31/23 01/31/23 Range/Units 03:40 14:05 20:35 WBC 11.8 H 11.8 H (3.8-10.6) k/uL RBC 3.52 L 3.56 L (3.80-5.40) m/uL Hgb 7.4 L 7.5 L (11.4-16.0) gm/dL Hct 25.6 L 26.5 L (34.0-46.0) % MCV 72.7 L 74.4 L (80.0-100.0) fL MCH 21.0 L 20.9 L (25.0-35.0) pg MCHC 28.9 L 28.2 L (31.0-37.0) g/dL RDW 19.9 H 19.8 H (11.5-15.5) % Plt Count (150-450) k/uL Neutrophils # (1.3-7.7) k/uL Lymphocytes # (1.0-4.8) k/uL Sodium (137-145) mmol/L Chloride (98-107) mmol/L BUN (7-17) mg/dL Creatinine (0.52-1.04) mg/dL Glucose (74-99) mg/dL Iron 23 L (50-170) UG/DL TIBC 461 H (228-460) UG/DL % Saturation 4.99 L (12.00-45.00) Amylase (30-110) U/L Lipase (23-300) U/L Vitamin B12 1695.0 H (200.0-944.0) pg/mL 02/01/23 02/01/23 Range/Units 05:02 05:02 WBC 14.7 H (3.8-10.6) k/uL RBC 3.67 L (3.80-5.40) m/uL Hgb 7.6 L (11.4-16.0) gm/dL Hct 27.7 L (34.0-46.0) % MCV 75.4 L (80.0-100.0) fL MCH 20.7 L (25.0-35.0) pg MCHC 27.4 L (31.0-37.0) g/dL RDW 19.8 H (11.5-15.5) % Plt Count 452 H (150-450) k/uL Neutrophils # 13.5 H (1.3-7.7) k/uL Lymphocytes # 0.4 L (1.0-4.8) k/uL Sodium 135 L (137-145) mmol/L Chloride 89 L (98-107) mmol/L BUN 123 H* (7-17) mg/dL Creatinine 4.20 H (0.52-1.04) mg/dL Glucose 107 H (74-99) mg/dL Iron (50-170) UG/DL TIBC (228-460) UG/DL % Saturation (12.00-45.00) Amylase 372 H* (30-110) U/L Lipase 593 H (23-300) U/L Vitamin B12 (200.0-944.0) pg/mL Assessment and Plan Assessment: Altered mental status secondary to hypercapnic respiratory failure secondary to possible extra Klonopin use as well as an acute exacerbation of diastolic congestive heart failure Acute hypoxemic and hypercapnic respiratory failure secondary to above Metabolic encephalopathy secondary to above, elevated ammonia level, recovered Leukocytosis Anemia Acute kidney injury, current creatinine 4.2 Hyperkalemia Acute transaminitis Acute pancreatitis Troponin leak Urine drug screen is positive for opiates, oxycodone and tricyclic antidepressants History of fibromyalgia History of anxiety/depression/panic disorder Hyperlipidemia Hypertension Memory impairment Chronic and ongoing tobacco dependence Chronic atrial fibrillation anticoagulant with Eliquis Plan: The patient was seen and evaluated Chest x-ray, labs and medications reviewed Currently stable and on 4 L nasal cannula Titrate down the FiO2 as tolerated Continue IV diuretics Stable for transfer out of the ICU We will continue to follow I have personally seen and examined the patient, performed the documentation and the assessment and plan as written. Number of minutes spent on the visit: 10.
[2023-02-02] MEDS: FUROSEMIDE 10 MG/ML 10 ML VIAL IV SCH ×3 (00:13→20:22)
[2023-02-02] MEDS: methylPREDNISolone SOD SUCCI 40 MG/ML 1 ML VIAL IV SCH ×3 (00:14→15:49)
[2023-02-02] MEDS: ACETAMINOPHEN TAB 325 MG TAB PO PRN ×2 (03:22→17:47)
[2023-02-02 04:39] LABS: Anisocytosis Moderate; HGB 8.1 gm/dL (11.4-16.0); Hypochromasia Marked; MCH 21.8 pg (25.0-35.0); MCHC 29.9 g/dL (31.0-37.0); MCV 72.8 fL (80.0-100.0); Mean Platelet Volume 9.5; Microcytosis Marked; Platelet Count 421 k/uL (150-450); Poikilocytosis Slight; RBC 3.71 m/uL (3.80-5.40); RDW 20.5 % (11.5-15.5); WBC 12.9 k/uL (3.8-10.6)
[2023-02-02 04:59] LABS: African American GFR (CKD) 13 (>60 ml/min/1.73 sqM); Anion Gap 14 mmol/L; Calcium 9.4 mg/dL (8.4-10.2); Carbon Dioxide 33 mmol/L (22-30); Chloride 88 mmol/L (98-107); Glucose 142 mg/dL (74-99); Lipase 345 U/L (23-300); Non-African American GFR(CKD) 11 (>60 ml/min/1.73 sqM); Potassium 4.1 mmol/L (3.5-5.1); Sodium 135 mmol/L (137-145)
[2023-02-02] MEDS: PIPERACILLIN-TAZOBACTAM 3.375 GM in SODIUM CHLORIDE 0.9% 100 ML IVPB SCH ×2 (05:15→17:43)
[2023-02-02 06:09] LABS: Blood Urea Nitrogen 123 mg/dL (7-17)
--- NOTE | 2023-02-02 07:30 | P.PN ---
Subjective Progress Note Date: 02/02/23 PROGRESS NOTE The patient is a 67-year-old female with chronic persistent atrial fibrillation who presented with change in mental status, worsening renal function and hypoxemia and hypercapnia. She's feeling better today. She continues to be in atrial fibrillation with episodes of rapid ventricle response. She denies any chest discomfort, dizziness or palpitations. She denies any nausea. She is fol lowing commands and appears to be more alert. There is no evidence of hypotension. Her urinary output is being. Her echocardiogram showed a preserved systolic function with no segmental wall motion abnormality. February 02: The patient is feeling well this morning, she denies any chest discomfort, dizziness or palpitations. She appears to be more awake and alert. She denies any nausea or vomiting and her appetite is good. She continues to be in atrial fibrillation with better control of her ventricular rate. She is anticoagulated. She continues to be on intravenous diuretics Medications: Lasix 60 mg every 8 hours, metoprolol succinate 50 mg twice a day, Zosyn. Eliquis 2.5 mg bid Physical examination: Blood pressure 110/60, heart rate 90-110 LUNGS: Few crackles bilaterally HEART: Irregular rate and rhythm, S1, S2. No S3. Systolic ejection murmur ABDOMEN: Soft, nontender, no organomegaly EXTREMETIES: + 1 edema LAB: Hemoglobin 8.1, WBC 12.9. BUN 123, creatinine 4.05. lipase 345. IMPRESSION: 1. Acute hypoxia with hypercapnic episode, improved 2. Chronic persistent atrial fibrillation 3. Heart failure with preserved systolic function 4. Pancreatitis 5. Acute renal injury 6. Acute COPD exacerbation PLAN: 1. Continue supportive care with present treatment 2. Follow heart rate for further adjustment as needed 3. Follow renal functions 4. Increase physical activity Objective - Vital Signs Vital signs: Vital Signs Temp 98.4 F 02/02/23 00:00 Pulse 110 H 02/02/23 00:00 Resp 20 02/02/23 00:00 BP 110/62 02/02/23 00:00 Pulse Ox 96 02/02/23 00:00 FiO2 45 01/31/23 08:00 Intake & Output 02/01/23 02/02/23 02/02/23 18:59 06:59 18:59 Intake Total 420 340 Output Total 1780 750 Balance -1360 -410 Intake: IV 200 340 0.9 NS 100 240 Piperacillin-Tazobactam 3 100 100 .375 gm In Sodium Chloride 0.9% 100 ml @ 25 mls/hr IVPB Q12H [facility] Rx# :[id number] Intake, IV Titration 100 Amount Sodium Ferric Gluconat- 100 Sucrose 125 mg In Sodium Chloride 0.9% 100 ml @ 100 mls/hr IVPB DAILY [facility] Rx#:[id number] Oral 120 Output: Urine 1780 750 Other: Voiding Method Indwelling Catheter External Catheter # Bowel Movements 3 - Labs CBC & Chem 7: 02/02/23 04:26 02/02/23 04:26 Labs: Abnormal Lab Results - Last 24 Hours (Table) 02/02/23 02/02/23 Range/Units 04:26 04:26 WBC 12.9 H (3.8-10.6) k/uL RBC 3.71 L (3.80-5.40) m/uL Hgb 8.1 L (11.4-16.0) gm/dL Hct 27.0 L (34.0-46.0) % MCV 72.8 L (80.0-100.0) fL MCH 21.8 L (25.0-35.0) pg MCHC 29.9 L (31.0-37.0) g/dL RDW 20.5 H (11.5-15.5) % Sodium 135 L (137-145) mmol/L Chloride 88 L (98-107) mmol/L Carbon Dioxide 33 H (22-30) mmol/L BUN 123 H* (7-17) mg/dL Creatinine 4.05 H (0.52-1.04) mg/dL Glucose 142 H (74-99) mg/dL Lipase 345 H (23-300) U/L
[2023-02-02] MEDS: SODIUM FERRIC GLUCONAT-SUCROSE 125 MG in SODIUM CHLORIDE 0.9% 100 ML IVPB SCH (08:05)
[2023-02-02] MEDS: DULoxetine HCL 60 MG CAPSULE.DR PO SCH (08:10)
[2023-02-02] MEDS: PANTOPRAZOLE 40 MG/10 ML VIAL IVP SCH ×2 (08:10→20:22)
[2023-02-02] MEDS: APIXABAN 2.5 MG TABLET PO SCH ×2 (08:10→20:22)
[2023-02-02] MEDS: METOPROLOL SUCCINATE (ER) 50 MG TAB.ER.24H PO SCH ×2 (08:11→20:22)
[2023-02-02] MEDS: FORMOTEROL FUMARATE 20 MCG/2 ML NEBU INHALATION SCH ×3 (08:13→20:28)
[2023-02-02] MEDS: IPRATROPIUM-ALBUTEROL 3 ML NEB INHALATION SCH ×5 (08:13→20:28)
[2023-02-02] MEDS: BUDESONIDE 1 MG/2 ML NEBU INHALATION SCH ×3 (08:13→20:28)
--- NOTE | 2023-02-02 10:53 | P.PN ---
Subjective Patient is seen in follow-up for acute kidney injury. Creatinine slightly improved to 4.05. Nonoliguric. On IV Lasix. Currently on full liquid diet. On nasal cannula. Denies chest pain or shortness of breath. Vital signs are stable. General: No acute distress. HEENT: Head exam is unremarkable. On nasal cannula. LUNGS: No audible rhonchi or wheezes. HEART: Rate and Rhythm are regular. ABDOMEN: Nontender. EXTREMITITES: 1+ edema. Objective - Vital Signs Vital signs: Vital Signs Temp 98.0 F 02/02/23 07:58 Pulse 110 H 02/02/23 08:39 Resp 18 02/02/23 07:58 BP 98/58 02/02/23 07:58 Pulse Ox 95 02/02/23 08:14 FiO2 45 01/31/23 08:00 Intake & Output 02/01/23 02/02/23 02/02/23 18:59 06:59 18:59 Intake Total 420 340 Output Total 1780 750 Balance -1360 -410 Intake: IV 200 340 0.9 NS 100 240 Piperacillin-Tazobactam 3 100 100 .375 gm In Sodium Chloride 0.9% 100 ml @ 25 mls/hr IVPB Q12H [facility] Rx# :[id number] Intake, IV Titration 100 Amount Sodium Ferric Gluconat- 100 Sucrose 125 mg In Sodium Chloride 0.9% 100 ml @ 100 mls/hr IVPB DAILY [facility] Rx#:[id number] Oral 120 Output: Urine 1780 750 Other: Voiding Method Indwelling Catheter External Catheter # Bowel Movements 3 - Labs CBC & Chem 7: 02/02/23 04:26 02/02/23 04:26 Labs: Abnormal Lab Results - Last 24 Hours (Table) 02/02/23 02/02/23 Range/Units 04:26 04:26 WBC 12.9 H (3.8-10.6) k/uL RBC 3.71 L (3.80-5.40) m/uL Hgb 8.1 L (11.4-16.0) gm/dL Hct 27.0 L (34.0-46.0) % MCV 72.8 L (80.0-100.0) fL MCH 21.8 L (25.0-35.0) pg MCHC 29.9 L (31.0-37.0) g/dL RDW 20.5 H (11.5-15.5) % Sodium 135 L (137-145) mmol/L Chloride 88 L (98-107) mmol/L Carbon Dioxide 33 H (22-30) mmol/L BUN 123 H* (7-17) mg/dL Creatinine 4.05 H (0.52-1.04) mg/dL Glucose 142 H (74-99) mg/dL Lipase 345 H (23-300) U/L Assessment and Plan Plan: Assessment: 1. Acute kidney injury secondary to ATN secondary to hypotension and component of cardiorenal syndrome. UA benign. No hydronephrosis noted on CT. Creatinine 1 in July 2021. Creatinine peaked at 4.5 at this admission and is 4.02 today. Nonoliguric. Elevated BUN partially due to steroids. 2. Volume overload. Improved with diuresis. 3. Acute on chronic diastolic CHF with moderate pulmonary hypertension. 4. Acute pancreatitis. Currently on full liquid diet. 5. Anemia with severe iron deficiency receiving IV iron. 6. Acute hypoxic and hypercapnic respiratory failure. 7. Hyperkalemia secondary to acute kidney injury. Improved. Plan: Maintain IV Lasix- decrease frequency to twice a day. Diet per surgery. Avoid nephrotoxins. Continue to monitor renal function and urine output. Continue to assess daily for need for renal replacement therapy. No urgency at this time.
[2023-02-02] MEDS: SODIUM CHLORIDE 0.9% 500 ML 500 ML IV SCH (11:16)
--- NOTE | 2023-02-02 12:09 | P.PN ---
Subjective Progress Note Date: 02/02/23 This is a 67-year-old female with a known history of hypertension, hyperlipidemia, fibromyalgia, CVA/TIA, memory impairment, anxiety/depression/panic disorder, chronic and ongoing tobacco dependence. She was brought into the emergency room by her to start afternoon after finding her to be quite drowsy. He had trouble getting her up. She had trouble bearing her own weight. She was confused. Apparently she had taken extra Klonopin. Computed tomography scan of the brain revealed chronic small vessel ischemic changes without acute intracranial process. Chest x-ray revealed chronic changes but no acute pulmonary disease. Echocardiogram revealed preserved left ventricular systolic function. Severe right ventricular enlargement with moderate pulmonary hypertension. Abdominal ultrasound revealed no acute process. White count 18.2. Hemoglobin 8.3. Platelets 605. Sodium 129. Potassium 6.4. Bicarb 25. BUN 82. Creatinine 4.25. AST 4961. ALT 4711. Ammonia level XL. Creatinine kinase 471. BNP 11,700. Urine drug screen positive for opiates, oxycodone, tricyclic antidepressants. Initial arterial blood gases on 36% FiO2 revealed a P O2 of 38, pCO2 of 100 and a pH of 7.05. She was placed on BiPAP 15/5 and 32% FiO2 and follow-up blood gases revealed a pO2 of 56, pCO2 of 85 and a pH of 7.11. She is seen today in consultation in the emergency department. She is currently resting on a stretcher. Arousable. Not able to give much information. Follow-up arterial blood gases on 36% FiO2 revealed a pO2 of 69, pCO2 of 63 and a pH of 7.23. Patient was reevaluated today on 01/30/2023, patient remains on BiPAP, continues to be confused, she is arousable, but does not seem to be quite alert and oriented. In spite of being on BiPAP for the last 24 hours, repeat ABG on 40% FiO2 with IPAP of 16 and EPAP of 6 showed a pO2 of 56 E. CO2 74 and pH of 7.22 which is clearly a worsening ABG compared to the ABG noted yesterday. With worsening hypoxia worsening hypercapnia and worsening pH. Hence after evaluating the patient I recommended immediate transfer to the ICU and will continue BiPAP, we will check a follow-up chest x-ray, if the patient does not improve much, and we will continue diuretics, may have to consider intubating the patient and placement on mechanical ventilation. Chest x-ray this morning continues to show cardiomegaly and interstitial edema, doubt underlying pneumonia. WBC count today is 15.7 hemoglobin is 8.2 sodium is 130 potassium 5.8 BUN is 105 creatinine 4.41. Liver enzymes are worsening with worsening AST of over 1500, ALT was close to 5000s, CPK is 471 Procalcitonin is 0.77, CT of the abdomen and pelvis showed mild pancreatitis with colonic dilatation suggestive of colonic ileus. Patient was seen by general surgery on consulta tion for her abnormal CT of the abdomen and pelvis and recommended mostly conservative measures Reevaluated today on 01/31/2023, patient was transferred to ICU yesterday, remains in the ICU, remains on BiPAP 15/45%. Overnight the patient was extremely agitated and restless, and kept pulling her BiPAP, hence she was placed on Precedex which is now at 1 mcg/kg/h. For her atrial fibrillation with RVR remains on Cardizem at 5 mg per hour. Patient remains on Zosyn she also remains on Lasix at 40 mg IV push every 8 hours. Chest x-ray is showing definite improvement. Follow-up ABG today on the BiPAP showed significant improvement compared to yesterday with improving oxygenation pO2 105 improving pCO2 down to 60 from 74 and improving pH from 7.22 to 7.34 liver enzymes are elevated but improving and malaise is elevated at 348 and lipase is 1070 chest x-ray is showing improvement in her interstitial edema but not fully resolved. The patient is seen today 02/01/2023 in follow-up in the intensive care unit. She is awake and alert in no acute distress. Sitting up in bed. She is curren tly off the BiPAP. She is maintaining good O2 saturations in the 90s on 4 L/m per nasal cannula. She is receiving normal saline at 20 ML's per hour. White count 14.7. Hemoglobin 7.6. Platelets 452. Sodium 135. Potassium 4.7. Bicarb 30. BUN 123. Creatinine 4.20. Glucose 107. Amylase 372. Lipase 593. She is currently in a -2.1 L balance. She remains on Lasix 60 mg every 8 hours. Continue bronchodilators and steroids. Anticoagulated with Eliquis. Antibiotics in the form of Zosyn. The patient is seen today 02/02/2023 in follow-up in the intensive care unit. She is sitting up in bed. Awake and alert in no acute distress. She is maintaining good O2 saturations in the 90s on 3 L/m per nasal cannula. She has normal saline at 20 ML's per hour. White count 12.9. Hemoglobin 8.1. Platelets 421. Sodium 135. Potassium 4.1. Bicarb 33. BUN 123. Creatinine 4.05. Glucose 142. Lipase 345. She is continued on bronchodilators and steroids. Anticoagulated with Eliquis. Antibiotics in the form of Zosyn. She remains on IV diuretics. Currently in a -1.7 L balance Objective - Vital Signs Vital signs: Vital Signs Temp 98.0 F 02/02/23 07:58 Pulse 108 H 02/02/23 11:32 Resp 18 02/02/23 07:58 BP 98/58 02/02/23 07:58 Pulse Ox 95 02/02/23 08:14 FiO2 45 01/31/23 08:00 Intake & Output 02/01/23 02/02/23 02/02/23 18:59 06:59 18:59 Intake Total 420 340 Output Total 1780 750 Balance -1360 -410 Intake: IV 200 340 0.9 NS 100 240 Piperacillin-Tazobactam 3 100 100 .375 gm In Sodium Chloride 0.9% 100 ml @ 25 mls/hr IVPB Q12H [facility] Rx# :[id number] Intake, IV Titration 100 Amount Sodium Ferric Gluconat- 100 Sucrose 125 mg In Sodium Chloride 0.9% 100 ml @ 100 mls/hr IVPB DAILY [facility] Rx#:[id number] Oral 120 Output: Urine 1780 750 Other: Voiding Method Indwelling Catheter External Catheter External Catheter # Bowel Movements 3 - Exam GENERAL EXAM: Alert, oriented, 67-year-old female, sitting up in bed, on 3 L nasal cannula, comfortable in no apparent distress. HEAD: Normocephalic. EYES: Normal reaction of pupils, equal size. NOSE: Clear with pink turbinates. THROAT: No erythema or exudates. NECK: No masses, no JVD. CHEST: No chest wall deformity. LUNGS: Equal air entry with bilateral end expiratory wheeze, few scattered rhonchi. CVS: S1 and S2 normal with no audible murmur, regular rhythm. ABDOMEN: No hepatosplenomegaly, normal bowel sounds, no guarding or rigidity. SPINE: No scoliosis or deformity SKIN: No rashes CENTRAL NERVOUS SYSTEM: No focal deficits, tone is normal in all 4 extremities. EXTREMITIES: There is no peripheral edema. No clubbing, no cyanosis. Peripheral pulses are intact. - Labs CBC & Chem 7: 02/02/23 04:26 02/02/23 04:26 Labs: Abnormal Lab Results - Last 24 Hours (Table) 02/02/23 02/02/23 Range/Units 04:26 04:26 WBC 12.9 H (3.8-10.6) k/uL RBC 3.71 L (3.80-5.40) m/uL Hgb 8.1 L (11.4-16.0) gm/dL Hct 27.0 L (34.0-46.0) % MCV 72.8 L (80.0-100.0) fL MCH 21.8 L (25.0-35.0) pg MCHC 29.9 L (31.0-37.0) g/dL RDW 20.5 H (11.5-15.5) % Sodium 135 L (137-145) mmol/L Chloride 88 L (98-107) mmol/L Carbon Dioxide 33 H (22-30) mmol/L BUN 123 H* (7-17) mg/dL Creatinine 4.05 H (0.52-1.04) mg/dL Glucose 142 H (74-99) mg/dL Lipase 345 H (23-300) U/L Assessment and Plan Assessment: Altered mental status secondary to hypercapnic respiratory failure secondary to possible extra Klonopin use as well as an acute exacerbation of diastolic congestive heart failure Acute hypoxemic and hypercapnic respiratory failure secondary to above Metabolic encephalopathy secondary to above, elevated ammonia level, recovered Leukocytosis Anemia Acute kidney injury, current creatinine 4.05 Hyperkalemia Acute transaminitis Acute pancreatitis, lipase trending down Troponin leak Urine drug screen is positive for opiates, oxycodone and tricyclic antidepressants History of fibromyalgia History of anxiety/depression/panic disorder Hyperlipidemia Hypertension Memory impairment Chronic and ongoing tobacco dependence Chronic atrial fibrillation anticoagulant with Eliquis Plan: The patient was seen and evaluated Labs and medications reviewed Titrate down the FiO2 as tolerated Continue IV diuretics Stable for transfer out of the ICU We will continue to follow I have personally seen and examined the patient, performed the documentation and the assessment and plan as written. Number of minutes spent on the visit: 10.
[2023-02-02 13:15] VITALS: BMI 38.7
--- NOTE | 2023-02-02 14:26 | P.PN ---
Subjective Progress Note Date: 02/02/23 CHIEF COMPLAINT: Pancreatitis HISTORY OF PRESENT ILLNESS: The patient is a 67 year old female with new pa ncreatitis including hypercarbia, exacerbation of congestive heart failure. Patient denies any abdominal pain. Denies any nausea vomiting. She reports having bowel movements. Afebrile. Mildly tachycardic. WBC 14.7 down to 12.9 Hgb 8.1 lipase is trending down to 345 PHYSICAL EXAM: VITAL SIGNS: Reviewed GENERAL: Well-developed in no acute distress. HEENT: No sclera icterus. Extraocular movements grossly intact. Moist buccal mucosa. Head is atraumatic, normocephalic. Hears conversational speech. No nasal drainage. NECK: Supple without lymphadenopathy. CHEST: Non-labored respirations and equal bilateral excursions. CARDIOVASCULAR: Palpable 2+ radial pulses. ABDOMEN: Soft. Nondistended. Nontender. MUSCULOSKELETAL: No clubbing or cyanosis. NEUROLOGIC: No focal or lateralizing signs. Cranial nerves II through XII grossly intact. PSYCH: Appropriate affect. Alert and oriented to person, place and time. SKIN: Well perfused. Good skin turgor. ASSESSMENT: 1. Pancreatitis her computed tomography scan 2. Ileus 3. Leukocytosis 4. Anemia 5. Hyperkalemia 6. Acute kidney failure 7. Elevated LFTs 8. Liver shock 9. Metabolic encephalopathy PLAN: -Advance diet to full liquids for lunch and regular diet for dinner -Repeat lipase in a.m. -Continue supportive care Physician Government Teacher note has been reviewed by physician. Signing provider agrees with the documented findings, assessment, and plan of care. Objective - Vital Signs Vital signs: Vital Signs Temp 98.0 F 02/02/23 07:58 Pulse 108 H 02/02/23 11:32 Resp 18 02/02/23 07:58 BP 98/58 02/02/23 07:58 Pulse Ox 95 02/02/23 08:14 FiO2 45 01/31/23 08:00 Intake & Output 02/01/23 02/02/23 02/02/23 18:59 06:59 18:59 Intake Total 420 340 Output Total 1780 750 Balance -1360 -410 Intake: IV 200 340 0.9 NS 100 240 Piperacillin-Tazobactam 3 100 100 .375 gm In Sodium Chloride 0.9% 100 ml @ 25 mls/hr IVPB Q12H [facility] Rx# :[id number] Intake, IV Titration 100 Amount Sodium Ferric Gluconat- 100 Sucrose 125 mg In Sodium Chloride 0.9% 100 ml @ 100 mls/hr IVPB DAILY [facility] Rx#:[id number] Oral 120 Output: Urine 1780 750 Other: Voiding Method Indwelling Catheter External Catheter External Catheter # Bowel Movements 3 - Labs CBC & Chem 7: 02/02/23 04:26 02/02/23 04:26 Labs: Abnormal Lab Results - Last 24 Hours (Table) 02/02/23 02/02/23 Range/Units 04:26 04:26 WBC 12.9 H (3.8-10.6) k/uL RBC 3.71 L (3.80-5.40) m/uL Hgb 8.1 L (11.4-16.0) gm/dL Hct 27.0 L (34.0-46.0) % MCV 72.8 L (80.0-100.0) fL MCH 21.8 L (25.0-35.0) pg MCHC 29.9 L (31.0-37.0) g/dL RDW 20.5 H (11.5-15.5) % Sodium 135 L (137-145) mmol/L Chloride 88 L (98-107) mmol/L Carbon Dioxide 33 H (22-30) mmol/L BUN 123 H* (7-17) mg/dL Creatinine 4.05 H (0.52-1.04) mg/dL Glucose 142 H (74-99) mg/dL Lipase 345 H (23-300) U/L
--- NOTE | 2023-02-02 15:42 | P.PN ---
Subjective Progress Note Date: 02/02/23 Patient continues to be closely monitored in the intensive care unit. Remains on IV Lasix 60 mg every 12 hours patient has diuresed over 3.2 L in the last 24 hours. Discontinue significant lower extremity edema patient states that this is improving. Nephrology following closely patient's BUN today is 23, creatinine 4.05 no decision yet whether patient will begin renal replacement therapy or not. Lipase is improved today down to 345. Additionally the white count is improved to 12.9. Hemoglobin stable at 8.1 no signs of acute bleeding. Patient additionally continues on IV Solu-Medrol high-dose for the acute COPD exacerbation remains on 5 L of oxygen there is a discrepancy whether patient actually uses home oxygen or not. It is documented in the medical records the patient is on 2 L of home oxygen however when asked patient does deny and states that she has never worn oxygen at home even for short period of time. Patient has had 3 loose bowel movements today, would recommend to change lactulose to as needed titration and to be given until patient has 2-3 bowel movements per day. Most recent ammonia level has normalized and currently 14. Patient continues on IV Zosyn empirically. She remains in atrial fibrillation with rapid ventricular rate in the low 100s. Patient has not gotten up out of bed physical therapy is consulted likely patient will require subacute rehab on discharge. Patient was under the impression that she was being discharged home today. Review of Systems Constitutional: Reports fatigue denied any fever. Cardio vascular: denied any chest pain, palpitations Gastrointestinal: denied any nausea, vomiting, diarrhea Pulmonary: Denied any shortness of breath cough Neurologic denied any new focal deficits Reports significant weakness, All inpatient medications were reviewed and appropriate changes in these medications as dictated in the interval history and assessment and plan. PHYSICAL EXAMINATION: GENERAL: The patient is alert and oriented x2-3 patient thought she was at [facility], not in any acute distress. Well developed, well nourished. Obese. On 5L of oxygen via nasal cannula. HEENT: Pupils are round and equally reacting to light. EOMI. No scleral icterus. No conjunctival pallor. Normocephalic, atraumatic. No pharyngeal erythema. No thyromegaly. CARDIOVASCULAR: S1 and S2 present. No murmurs, rubs, or gallops. PULMONARY: Chest is clear to auscultation, no wheezing or crackles. ABDOMEN: Soft, nontender, nondistended, normoactive bowel sounds. No palpable organomegaly. MUSCULOSKELETAL: No joint swelling or deformity. EXTREMITIES: No cyanosis, clubbing, or pedal edema. +1 lower extremity pitting edema NEUROLOGICAL: Gross neurological examination did not reveal any focal deficits. Diffuse generalized weakness. SKIN: No rashes. Assessment Acute hypoxemic hypercapnic respiratory failure secondary to acute COPD exacerb ation currently 5 L of oxygen she required BiPAP with an FiO2 of 45% on admission. After mental status secondary to acute metabolic and toxic encephalopathy secondary to acute renal injury and hypercapnia currently improved and alert 2- 3 Mild acute pancreatitis per her CT scan Acute renal failure with hyperkalemia due to ATN and hypotension Acute diastolic heart failure with moderate pulmonary hypertension transamnitis Chronic Atrial fibrillation with rapid ventricular rate HR in the 100s. Anemia, microcytic iron deficiency on IV ferrlecit Possible colitis with ileus History of CVA/TIA Hypertension Hyperlipidemia History of memory impairment Chronic neck and back pain status post cervical fusion surgery. Anxiety depression and panic disorder, not in active tissue GI prophylaxis on protonix BID DVT prophylaxis on eliquis 2.5 BID renal dosing Full Code Plan Diet is being upgraded to full liquid Patient remains on IV zosyn Remains on IV lasix, metoprolol was increased Continues on IV ferrlecit daily PT/OT consultation and follow up labs in AM. The impression and plan of care has been dictated by Elidia Llanes, Nurse Practitioner as directed. Dr. Taisha MD I have performed a history and physical examination and medical decision making of this patient, discussed the same with the dictator, and agree with the dictators assessment and plan as written, documented as a scribe. Based on total visit time, I have performed more than 50% of this visit. Objective - Vital Signs Vital signs: Vital Signs Temp 98.0 F 02/02/23 07:58 Pulse 110 H 02/02/23 08:39 Resp 18 02/02/23 07:58 BP 98/58 02/02/23 07:58 Pulse Ox 95 02/02/23 08:14 FiO2 45 01/31/23 08:00 Intake & Output 02/01/23 02/02/23 02/02/23 18:59 06:59 18:59 Intake Total 420 340 Output Total 1780 750 Balance -1360 -410 Intake: IV 200 340 0.9 NS 100 240 Piperacillin-Tazobactam 3 100 100 .375 gm In Sodium Chloride 0.9% 100 ml @ 25 mls/hr IVPB Q12H [facility] Rx# :[id number] Intake, IV Titration 100 Amount Sodium Ferric Gluconat- 100 Sucrose 125 mg In Sodium Chloride 0.9% 100 ml @ 100 mls/hr IVPB DAILY [facility] Rx#:[id number] Oral 120 Output: Urine 1780 750 Other: Voiding Method Indwelling Catheter External Catheter # Bowel Movements 3 - Labs CBC & Chem 7: 02/02/23 04:26 02/02/23 04:26 Labs: Abnormal Lab Results - Last 24 Hours (Table) 02/02/23 02/02/23 Range/Units 04:26 04:26 WBC 12.9 H (3.8-10.6) k/uL RBC 3.71 L (3.80-5.40) m/uL Hgb 8.1 L (11.4-16.0) gm/dL Hct 27.0 L (34.0-46.0) % MCV 72.8 L (80.0-100.0) fL MCH 21.8 L (25.0-35.0) pg MCHC 29.9 L (31.0-37.0) g/dL RDW 20.5 H (11.5-15.5) % Sodium 135 L (137-145) mmol/L Chloride 88 L (98-107) mmol/L Carbon Dioxide 33 H (22-30) mmol/L BUN 123 H* (7-17) mg/dL Creatinine 4.05 H (0.52-1.04) mg/dL Glucose 142 H (74-99) mg/dL Lipase 345 H (23-300) U/L Assessment and Plan Time with Patient: Less than 30
[2023-02-02] MEDS ORDERED: LACTULOSE 20 GM/30 ML CUP PO PRN (15:54)
[2023-02-02 16:27] LABS: Anisocytosis Moderate; Basophils % (A) 0 %; Eosinophils % (A) 0 %; HCT 30.2 % (34.0-46.0); HGB 8.6 gm/dL (11.4-16.0); Hypochromasia Marked; Lymphocytes # (A) 0.4 k/uL (1.0-4.8); Lymphocytes % (A) 2 %; MCH 20.9 pg (25.0-35.0); MCHC 28.4 g/dL (31.0-37.0); MCV 73.5 fL (80.0-100.0); Mean Platelet Volume 7.7; Microcytosis Marked; Monocytes # (A) 0.9 k/uL (0-1.0); Monocytes % (A) 6 %; Neutrophils # (A) 14.1 k/uL (1.3-7.7); Neutrophils % (A) 91 %; Platelet Count 462 k/uL (150-450); Poikilocytosis Slight; RBC 4.11 m/uL (3.80-5.40); RDW 20.4 % (11.5-15.5); WBC 15.4 k/uL (3.8-10.6)
[2023-02-02 16:47] LABS: AST 94 U/L (14-36); African American GFR (CKD) 12 (>60 ml/min/1.73 sqM); Albumin 3.7 g/dL (3.5-5.0); Alkaline Phosphatase 65 U/L (38-126); Anion Gap 13 mmol/L; Calcium 9.6 mg/dL (8.4-10.2); Carbon Dioxide 35 mmol/L (22-30); Chloride 87 mmol/L (98-107); Glucose 140 mg/dL (74-99); Magnesium 2.1 mg/dL (1.6-2.3); Non-African American GFR(CKD) 10 (>60 ml/min/1.73 sqM); Potassium 3.7 mmol/L (3.5-5.1); Sodium 135 mmol/L (137-145); Total Bilirubin 1.3 mg/dL (0.2-1.3); Total Protein 6.4 g/dL (6.3-8.2)
[2023-02-02 16:54] LABS: ALT 1019 U/L (4-34); Blood Urea Nitrogen 117 mg/dL (7-17)
[2023-02-02] MEDS: POTASSIUM CHLORIDE ER 20 MEQ TAB.ER PO SCH (17:47)
[2023-02-02 18:13] LABS: Amylase 372 U/L (30-110)
[2023-02-03] MEDS: POTASSIUM CHLORIDE ER 20 MEQ TAB.ER PO SCH (01:43)
[2023-02-03] MEDS: methylPREDNISolone SOD SUCCI 40 MG/ML 1 ML VIAL IV SCH ×2 (01:43→08:24)
[2023-02-03] MEDS: PIPERACILLIN-TAZOBACTAM 3.375 GM in SODIUM CHLORIDE 0.9% 100 ML IVPB SCH ×2 (05:20→18:16)
[2023-02-03 07:17] LABS: African American GFR (CKD) 14 (>60 ml/min/1.73 sqM); Anion Gap 11 mmol/L; Calcium 9.4 mg/dL (8.4-10.2); Carbon Dioxide 36 mmol/L (22-30); Chloride 88 mmol/L (98-107); Glucose 129 mg/dL (74-99); Non-African American GFR(CKD) 12 (>60 ml/min/1.73 sqM); Sodium 135 mmol/L (137-145)
--- NOTE | 2023-02-03 07:25 | P.PN ---
Subjective Progress Note Date: 02/03/23 PROGRESS NOTE The patient is a 67-year-old female with chronic persistent atrial fibrillation who presented with change in mental status, worsening renal function and hypoxemia and hypercapnia. She's feeling better today. She continues to be in atrial fibrillation with episodes of rapid ventricle response. She denies any chest discomfort, dizziness or palpitations. She denies any nausea. She is fol lowing commands and appears to be more alert. There is no evidence of hypotension. Her urinary output is being. Her echocardiogram showed a preserved systolic function with no segmental wall motion abnormality. February 02: The patient is feeling well this morning, she denies any chest discomfort, dizziness or palpitations. She appears to be more awake and alert. She denies any nausea or vomiting and her appetite is good. She continues to be in atrial fibrillation with better control of her ventricular rate. She is anticoagulated. She continues to be on intravenous diuretics February 03: The patient is feeling well this morning, she continues to be in atrial fibrillation with episodes of rapid ventricle response. She denies any chest discomfort, dizziness or palpitations. She has good urinary output. She is on furosemide 60 mg IV every 12 hours. She has no hypertension. She denies any nausea or vomiting. Medications: Lasix 60 mg every 12 hours, metoprolol succinate 50 mg twice a day, Zosyn. Eliquis 2.5 mg bid Physical examination: Blood pressure 117/74, heart rate 110-120 LUNGS: Few crackles bilaterally HEART: Irregular rate and rhythm, S1, S2. No S3. Systolic ejection murmur ABDOMEN: Soft, nontender, no organomegaly EXTREMETIES: + 1 edema LAB: Pending IMPRESSION: 1. Acute hypoxia with hypercapnic episode, improved 2. Chronic persistent atrial fibrillation remains with episodes of rapid ventricle response 3. Heart failure with preserved systolic function 4. Pancreatitis 5. Acute renal injury, nonoliguric 6. Acute COPD exacerbation PLAN: 1. Continue supportive care with present treatment 2. Increase beta teja to 3 times a day 3. Increase physical activity 4. Follow renal functions Objective - Vital Signs Vital signs: Vital Signs Temp 98 F 02/03/23 02:00 Pulse 111 H 02/03/23 02:00 Resp 20 02/03/23 02:00 BP 117/74 02/03/23 02:00 Pulse Ox 94 L 02/03/23 02:00 FiO2 45 01/31/23 08:00 Intake & Output 02/02/23 02/03/23 02/03/23 18:59 06:59 18:59 Intake Total 950 300 Output Total 950 1600 Balance 0 -1300 Weight 102.2 kg Intake: Oral 950 300 Output: Urine 950 1600 Other: Voiding Method External Catheter External Catheter - Labs CBC & Chem 7: 02/02/23 15:53 02/02/23 15:53 Labs: Abnormal Lab Results - Last 24 Hours (Table) 02/01/23 02/02/23 02/02/23 Range/Units 05:02 15:53 15:53 WBC 15.4 H (3.8-10.6) k/uL Hgb 8.6 L (11.4-16.0) gm/dL Hct 30.2 L (34.0-46.0) % MCV 73.5 L (80.0-100.0) fL MCH 20.9 L (25.0-35.0) pg MCHC 28.4 L (31.0-37.0) g/dL RDW 20.4 H (11.5-15.5) % Plt Count 462 H (150-450) k/uL Neutrophils # 14.1 H (1.3-7.7) k/uL Lymphocytes # 0.4 L (1.0-4.8) k/uL Sodium 135 L (137-145) mmol/L Chloride 87 L (98-107) mmol/L Carbon Dioxide 35 H (22-30) mmol/L BUN 117 H* (7-17) mg/dL Creatinine 4.24 H (0.52-1.04) mg/dL Glucose 140 H (74-99) mg/dL AST 94 H (14-36) U/L ALT 1019 H (4-34) U/L Amylase 372 H* (30-110) U/L
[2023-02-03 07:56] LABS: Blood Urea Nitrogen 118 mg/dL (7-17); Potassium 4.4 mmol/L (3.5-5.1)
[2023-02-03] MEDS: IPRATROPIUM-ALBUTEROL 3 ML NEB INHALATION SCH ×4 (08:15→20:06)
[2023-02-03] MEDS: BUDESONIDE 1 MG/2 ML NEBU INHALATION SCH (08:16)
[2023-02-03] MEDS: FORMOTEROL FUMARATE 20 MCG/2 ML NEBU INHALATION SCH (08:16)
[2023-02-03] MEDS: APIXABAN 2.5 MG TABLET PO SCH ×2 (08:23→21:20)
[2023-02-03] MEDS: DULoxetine HCL 60 MG CAPSULE.DR PO SCH (08:23)
[2023-02-03] MEDS: FUROSEMIDE 10 MG/ML 10 ML VIAL IV SCH ×2 (08:25→21:19)
[2023-02-03] MEDS: PANTOPRAZOLE 40 MG/10 ML VIAL IVP SCH ×2 (08:26→21:19)
[2023-02-03] MEDS: METOPROLOL SUCCINATE (ER) 50 MG TAB.ER.24H PO SCH ×2 (08:26→15:52)
[2023-02-03] MEDS: SODIUM FERRIC GLUCONAT-SUCROSE 125 MG in SODIUM CHLORIDE 0.9% 100 ML IVPB SCH (09:29)
[2023-02-03] MEDS: LACTULOSE 20 GM/30 ML CUP PO SCH (09:46)
[2023-02-03 10:35] LABS: Anisocytosis Moderate; Basophils % (A) 0 %; Eosinophils % (A) 0 %; HCT 31.3 % (34.0-46.0); HGB 8.5 gm/dL (11.4-16.0); Hypochromasia Marked; Lymphocytes # (A) 0.4 k/uL (1.0-4.8); Lymphocytes % (A) 2 %; MCH 20.8 pg (25.0-35.0); MCHC 27.1 g/dL (31.0-37.0); MCV 76.7 fL (80.0-100.0); Mean Platelet Volume 7.4; Microcytosis Moderate; Monocytes # (A) 0.7 k/uL (0-1.0); Monocytes % (A) 5 %; Neutrophils # (A) 13.8 k/uL (1.3-7.7); Neutrophils % (A) 92 %; Platelet Count 413 k/uL (150-450); Poikilocytosis Slight; RBC 4.08 m/uL (3.80-5.40); RDW 20.7 % (11.5-15.5); WBC 14.9 k/uL (3.8-10.6)
--- NOTE | 2023-02-03 10:48 | P.PN ---
Subjective Patient is seen in follow-up for acute kidney injury. Creatinine trending down. Nonoliguric. On IV Lasix. On regular diet. On nasal cannula. Denies chest pain or shortness of breath. Vital signs are stable. General: No acute distress. HEENT: Head exam is unremarkable. On nasal cannula. LUNGS: No audible rhonchi or wheezes. HEART: Rate and Rhythm are regular. ABDOMEN: Nontender. EXTREMITITES: 1+ edema. Objective - Vital Signs Vital signs: Vital Signs Temp 97.9 F 02/03/23 08:00 Pulse 115 H 02/03/23 08:32 Resp 12 02/03/23 08:00 BP 97/52 02/03/23 08:00 Pulse Ox 93 L 02/03/23 08:00 FiO2 45 01/31/23 08:00 Intake & Output 02/02/23 02/03/23 02/03/23 18:59 06:59 18:59 Intake Total 950 300 Output Total 950 1600 Balance 0 -1300 Weight 102.2 kg Intake: Oral 950 300 Output: Urine 950 1600 Other: Voiding Method External Catheter External Catheter External Catheter - Labs CBC & Chem 7: 02/03/23 10:09 02/03/23 05:44 Labs: Abnormal Lab Results - Last 24 Hours (Table) 02/01/23 02/02/23 02/02/23 Range/Units 05:02 15:53 15:53 WBC 15.4 H (3.8-10.6) k/uL Hgb 8.6 L (11.4-16.0) gm/dL Hct 30.2 L (34.0-46.0) % MCV 73.5 L (80.0-100.0) fL MCH 20.9 L (25.0-35.0) pg MCHC 28.4 L (31.0-37.0) g/dL RDW 20.4 H (11.5-15.5) % Plt Count 462 H (150-450) k/uL Neutrophils # 14.1 H (1.3-7.7) k/uL Lymphocytes # 0.4 L (1.0-4.8) k/uL Sodium 135 L (137-145) mmol/L Chloride 87 L (98-107) mmol/L Carbon Dioxide 35 H (22-30) mmol/L BUN 117 H* (7-17) mg/dL Creatinine 4.24 H (0.52-1.04) mg/dL Glucose 140 H (74-99) mg/dL AST 94 H (14-36) U/L ALT 1019 H (4-34) U/L Amylase 372 H* (30-110) U/L 02/03/23 02/03/23 Range/Units 05:44 10:09 WBC 14.9 H (3.8-10.6) k/uL Hgb 8.5 L (11.4-16.0) gm/dL Hct 31.3 L (34.0-46.0) % MCV 76.7 L (80.0-100.0) fL MCH 20.8 L (25.0-35.0) pg MCHC 27.1 L (31.0-37.0) g/dL RDW 20.7 H (11.5-15.5) % Plt Count (150-450) k/uL Neutrophils # 13.8 H (1.3-7.7) k/uL Lymphocytes # 0.4 L (1.0-4.8) k/uL Sodium 135 L (137-145) mmol/L Chloride 88 L (98-107) mmol/L Carbon Dioxide 36 H (22-30) mmol/L BUN 118 H* (7-17) mg/dL Creatinine 3.74 H (0.52-1.04) mg/dL Glucose 129 H (74-99) mg/dL AST (14-36) U/L ALT (4-34) U/L Amylase (30-110) U/L Assessment and Plan Plan: Assessment: 1. Acute kidney injury secondary to ATN secondary to hypotension and component of cardiorenal syndrome. UA benign. No hydronephrosis noted on CT. Creatinine 1 in July 2021. Creatinine peaked at 4.5 at this admission and is 3.74 today. Nonoliguric. Elevated BUN partially due to steroids. 2. Volume overload. Improving with diuresis. 3. Acute on chronic diastolic CHF with moderate pulmonary hypertension. 4. Acute pancreatitis. On regular diet now. 5. Anemia with severe iron deficiency receiving IV iron. 6. Acute hypoxic and hypercapnic respiratory failure. 7. Hyperkalemia secondary to acute kidney injury. Improved. Plan: Maintain IV Lasix. Avoid nephrotoxins. Continue to monitor renal function and urine output. Continue to assess daily for need for renal replacement therapy. No urgency at this time.
[2023-02-03] MEDS: LORATADINE 10 MG TAB PO SCH (11:22)
--- NOTE | 2023-02-03 12:06 | P.PN ---
Subjective Progress Note Date: 02/03/23 This is a 67-year-old female with a known history of hypertension, hyperlipidemia, fibromyalgia, CVA/TIA, memory impairment, anxiety/depression/panic disorder, chronic and ongoing tobacco dependence. She was brought into the emergency room by her to start afternoon after finding her to be quite drowsy. He had trouble getting her up. She had trouble bearing her own weight. She was confused. Apparently she had taken extra Klonopin. Computed tomography scan of the brain revealed chronic small vessel ischemic changes without acute intracranial process. Chest x-ray revealed chronic changes but no acute pulmonary disease. Echocardiogram revealed preserved left ventricular systolic function. Severe right ventricular enlargement with moderate pulmonary hypertension. Abdominal ultrasound revealed no acute process. White count 18.2. Hemoglobin 8.3. Platelets 605. Sodium 129. Potassium 6.4. Bicarb 25. BUN 82. Creatinine 4.25. AST 4961. ALT 4711. Ammonia level XL. Creatinine kinase 471. BNP 11,700. Urine drug screen positive for opiates, oxycodone, tricyclic antidepressants. Initial arterial blood gases on 36% FiO2 revealed a P O2 of 38, pCO2 of 100 and a pH of 7.05. She was placed on BiPAP 15/5 and 32% FiO2 and follow-up blood gases revealed a pO2 of 56, pCO2 of 85 and a pH of 7.11. She is seen today in consultation in the emergency department. She is currently resting on a stretcher. Arousable. Not able to give much information. Follow-up arterial blood gases on 36% FiO2 revealed a pO2 of 69, pCO2 of 63 and a pH of 7.23. Patient was reevaluated today on 01/30/2023, patient remains on BiPAP, continues to be confused, she is arousable, but does not seem to be quite alert and oriented. In spite of being on BiPAP for the last 24 hours, repeat ABG on 40% FiO2 with IPAP of 16 and EPAP of 6 showed a pO2 of 56 E. CO2 74 and pH of 7.22 which is clearly a worsening ABG compared to the ABG noted yesterday. With worsening hypoxia worsening hypercapnia and worsening pH. Hence after evaluating the patient I recommended immediate transfer to the ICU and will continue BiPAP, we will check a follow-up chest x-ray, if the patient does not improve much, and we will continue diuretics, may have to consider intubating the patient and placement on mechanical ventilation. Chest x-ray this morning continues to show cardiomegaly and interstitial edema, doubt underlying pneumonia. WBC count today is 15.7 hemoglobin is 8.2 sodium is 130 potassium 5.8 BUN is 105 creatinine 4.41. Liver enzymes are worsening with worsening AST of over 1500, ALT was close to 5000s, CPK is 471 Procalcitonin is 0.77, CT of the abdomen and pelvis showed mild pancreatitis with colonic dilatation suggestive of colonic ileus. Patient was seen by general surgery on consulta tion for her abnormal CT of the abdomen and pelvis and recommended mostly conservative measures Reevaluated today on 01/31/2023, patient was transferred to ICU yesterday, remains in the ICU, remains on BiPAP 15/45%. Overnight the patient was extremely agitated and restless, and kept pulling her BiPAP, hence she was placed on Precedex which is now at 1 mcg/kg/h. For her atrial fibrillation with RVR remains on Cardizem at 5 mg per hour. Patient remains on Zosyn she also remains on Lasix at 40 mg IV push every 8 hours. Chest x-ray is showing definite improvement. Follow-up ABG today on the BiPAP showed significant improvement compared to yesterday with improving oxygenation pO2 105 improving pCO2 down to 60 from 74 and improving pH from 7.22 to 7.34 liver enzymes are elevated but improving and malaise is elevated at 348 and lipase is 1070 chest x-ray is showing improvement in her interstitial edema but not fully resolved. The patient is seen today 02/01/2023 in follow-up in the intensive care unit. She is awake and alert in no acute distress. Sitting up in bed. She is curren tly off the BiPAP. She is maintaining good O2 saturations in the 90s on 4 L/m per nasal cannula. She is receiving normal saline at 20 ML's per hour. White count 14.7. Hemoglobin 7.6. Platelets 452. Sodium 135. Potassium 4.7. Bicarb 30. BUN 123. Creatinine 4.20. Glucose 107. Amylase 372. Lipase 593. She is currently in a -2.1 L balance. She remains on Lasix 60 mg every 8 hours. Continue bronchodilators and steroids. Anticoagulated with Eliquis. Antibiotics in the form of Zosyn. The patient is seen today 02/02/2023 in follow-up in the intensive care unit. She is sitting up in bed. Awake and alert in no acute distress. She is maintaining good O2 saturations in the 90s on 3 L/m per nasal cannula. She has normal saline at 20 ML's per hour. White count 12.9. Hemoglobin 8.1. Platelets 421. Sodium 135. Potassium 4.1. Bicarb 33. BUN 123. Creatinine 4.05. Glucose 142. Lipase 345. She is continued on bronchodilators and steroids. Anticoagulated with Eliquis. Antibiotics in the form of Zosyn. She remains on IV diuretics. Currently in a -1.7 L balance. The patient is seen today 02/03/2023 in follow-up in the intensive care unit. She has a regular medical floor overflow patient. She is currently sitting up in bed. Awake and alert in no acute distress. She is maintaining O2 saturation in the 90s on 3 L/m per nasal cannula. She remains quite weak. She is continued on DuoNeb inhalations, Pulmicort and performs inhalations, IV Solu- Medrol. She remains on antibiotics in the form of Zosyn. Anticoagulated with Eliquis. Remains on IV Lasix. Currently in a -1.3 L balance. Count 14.9. Hemoglobin 8.5. Platelets 413. Sodium 135. Potassium 4.4. Bicarb 36. BUN 118. Creatinine 3.74. Glucose 129. Lipase 267. Objective - Vital Signs Vital signs: Vital Signs Temp 97.9 F 02/03/23 08:00 Pulse 102 H 02/03/23 11:16 Resp 12 02/03/23 08:00 BP 97/52 02/03/23 08:00 Pulse Ox 93 L 02/03/23 08:00 FiO2 45 01/31/23 08:00 Intake & Output 02/02/23 02/03/23 02/03/23 18:59 06:59 18:59 Intake Total 950 300 Output Total 950 1600 Balance 0 -1300 Weight 102.2 kg Intake: Oral 950 300 Output: Urine 950 1600 Other: Voiding Method External Catheter External Catheter External Catheter - Exam GENERAL EXAM: Alert, pleasant, weak 67-year-old female, sitting up in bed, on 3 L nasal cannula, comfortable in no apparent distress. HEAD: Normocephalic. EYES: Normal reaction of pupils, equal size. NOSE: Clear with pink turbinates. THROAT: No erythema or exudates. NECK: No masses, no JVD. CHEST: No chest wall deformity. LUNGS: Equal air entry with bilateral end expiratory wheeze, few scattered rhonchi. CVS: S1 and S2 normal with no audible murmur, regular rhythm. ABDOMEN: No hepatosplenomegaly, normal bowel sounds, no guarding or rigidity. SPINE: No scoliosis or deformity SKIN: No rashes CENTRAL NERVOUS SYSTEM: No focal deficits, tone is normal in all 4 extremities. EXTREMITIES: There is no peripheral edema. No clubbing, no cyanosis. Peripheral pulses are intact. - Labs CBC & Chem 7: 02/03/23 10:09 02/03/23 05:44 Labs: Abnormal Lab Results - Last 24 Hours (Table) 02/01/23 02/02/23 02/02/23 Range/Units 05:02 15:53 15:53 WBC 15.4 H (3.8-10.6) k/uL Hgb 8.6 L (11.4-16.0) gm/dL Hct 30.2 L (34.0-46.0) % MCV 73.5 L (80.0-100.0) fL MCH 20.9 L (25.0-35.0) pg MCHC 28.4 L (31.0-37.0) g/dL RDW 20.4 H (11.5-15.5) % Plt Count 462 H (150-450) k/uL Neutrophils # 14.1 H (1.3-7.7) k/uL Lymphocytes # 0.4 L (1.0-4.8) k/uL Sodium 135 L (137-145) mmol/L Chloride 87 L (98-107) mmol/L Carbon Dioxide 35 H (22-30) mmol/L BUN 117 H* (7-17) mg/dL Creatinine 4.24 H (0.52-1.04) mg/dL Glucose 140 H (74-99) mg/dL AST 94 H (14-36) U/L ALT 1019 H (4-34) U/L Amylase 372 H* (30-110) U/L 10/18/23 10/18/23 Range/Units 05:44 10:09 WBC 14.9 H (3.8-10.6) k/uL Hgb 8.5 L (11.4-16.0) gm/dL Hct 31.3 L (34.0-46.0) % MCV 76.7 L (80.0-100.0) fL MCH 20.8 L (25.0-35.0) pg MCHC 27.1 L (31.0-37.0) g/dL RDW 20.7 H (11.5-15.5) % Plt Count (150-450) k/uL Neutrophils # 13.8 H (1.3-7.7) k/uL Lymphocytes # 0.4 L (1.0-4.8) k/uL Sodium 135 L (137-145) mmol/L Chloride 88 L (98-107) mmol/L Carbon Dioxide 36 H (22-30) mmol/L BUN 118 H* (7-17) mg/dL Creatinine 3.74 H (0.52-1.04) mg/dL Glucose 129 H (74-99) mg/dL AST (14-36) U/L ALT (4-34) U/L Amylase (30-110) U/L Assessment and Plan Assessment: Altered mental status secondary to hypercapnic respiratory failure secondary to possible extra Klonopin use as well as an acute exacerbation of diastolic congestive heart failure Acute hypoxemic and hypercapnic respiratory failure secondary to above improved and on 3 L cannula Metabolic encephalopathy secondary to above, elevated ammonia level, recovered Leukocytosis Anemia Acute kidney injury, current creatinine 4.05 Hyperkalemia Acute transaminitis trending down Acute pancreatitis, lipase improved and at 267 Troponin leak Urine drug screen is positive for opiates, oxycodone and tricyclic antidepressants History of fibromyalgia History of anxiety/depression/panic disorder Hyperlipidemia Hypertension Memory impairment Chronic and ongoing tobacco dependence Chronic atrial fibrillation anticoagulant with Eliquis Plan: The patient was seen and evaluated Labs and medications reviewed Titrate down the FiO2 as tolerated Discontinue Pulmicort and Perforomist inhalations Initiate Symbicort Discontinue Solu Medrol Initiate prednisone taper Remains a regular medical floor overflow Needs physical therapy We will continue to follow I have personally seen and examined the patient, performed the documentation and the assessment and plan as written. Number of minutes spent on the visit: 10.
[2023-02-03 12:20] LABS: Glucose,Whole Blood 192 mg/dL (70-110)
[2023-02-03] MEDS: SODIUM CHLORIDE 0.9% 500 ML 500 ML IV SCH (13:00)
--- NOTE | 2023-02-03 14:17 | P.PN ---
Subjective Progress Note Date: 02/03/23 CHIEF COMPLAINT: Pancreatitis HISTORY OF PRESENT ILLNESS: The patient is a 67 year old female with new pa ncreatitis including hypercarbia, exacerbation of congestive heart failure. Patient denies any abdominal pain. Denies any nausea vomiting. She reports having bowel movements. She tolerated regular diet. Lipase has normalized at 267. PHYSICAL EXAM: VITAL SIGNS: Reviewed GENERAL: Well-developed in no acute distress. HEENT: No sclera icterus. Extraocular movements grossly intact. Moist buccal mucosa. Head is atraumatic, normocephalic. Hears conversational speech. No nasal drainage. NECK: Supple without lymphadenopathy. CHEST: Non-labored respirations and equal bilateral excursions. CARDIOVASCULAR: Palpable 2+ radial pulses. ABDOMEN: Soft. Nondistended. Nontender. MUSCULOSKELETAL: No clubbing or cyanosis. NEUROLOGIC: No focal or lateralizing signs. Cranial nerves II through XII grossly intact. PSYCH: Appropriate affect. Alert and oriented to person, place and time. SKIN: Well perfused. Good skin turgor. ASSESSMENT: 1. Pancreatitis improved 2. Ileus resolved 3. Leukocytosis 4. Anemia 5. Hyperkalemia 6. Acute kidney failure 7. Elevated LFTs 8. Liver shock 9. Metabolic encephalopathy PLAN: -Patient's abdominal pain has resolved. She is tolerating regular diet. Lipase has normalized. -Surgical service will sign off. Please call with any questions or concerns. Physician Cigarette Making Machine Operator note has been reviewed by physician. Signing provider agrees with the documented findings, assessment, and plan of care. Objective - Vital Signs Vital signs: Vital Signs Temp 97.9 F 02/03/23 08:00 Pulse 115 H 02/03/23 08:32 Resp 12 02/03/23 08:00 BP 97/52 02/03/23 08:00 Pulse Ox 93 L 02/03/23 08:00 FiO2 45 01/31/23 08:00 Intake & Output 02/02/23 02/03/23 02/03/23 18:59 06:59 18:59 Intake Total 950 300 Output Total 950 1600 Balance 0 -1300 Weight 102.2 kg Intake: Oral 950 300 Output: Urine 950 1600 Other: Voiding Method External Catheter External Catheter External Catheter - Labs CBC & Chem 7: 02/03/23 10:09 02/03/23 05:44 Labs: Abnormal Lab Results - Last 24 Hours (Table) 02/01/23 02/02/23 02/02/23 Range/Units 05:02 15:53 15:53 WBC 15.4 H (3.8-10.6) k/uL Hgb 8.6 L (11.4-16.0) gm/dL Hct 30.2 L (34.0-46.0) % MCV 73.5 L (80.0-100.0) fL MCH 20.9 L (25.0-35.0) pg MCHC 28.4 L (31.0-37.0) g/dL RDW 20.4 H (11.5-15.5) % Plt Count 462 H (150-450) k/uL Neutrophils # 14.1 H (1.3-7.7) k/uL Lymphocytes # 0.4 L (1.0-4.8) k/uL Sodium 135 L (137-145) mmol/L Chloride 87 L (98-107) mmol/L Carbon Dioxide 35 H (22-30) mmol/L BUN 117 H* (7-17) mg/dL Creatinine 4.24 H (0.52-1.04) mg/dL Glucose 140 H (74-99) mg/dL AST 94 H (14-36) U/L ALT 1019 H (4-34) U/L Amylase 372 H* (30-110) U/L 02/03/23 02/03/23 Range/Units 05:44 10:09 WBC 14.9 H (3.8-10.6) k/uL Hgb 8.5 L (11.4-16.0) gm/dL Hct 31.3 L (34.0-46.0) % MCV 76.7 L (80.0-100.0) fL MCH 20.8 L (25.0-35.0) pg MCHC 27.1 L (31.0-37.0) g/dL RDW 20.7 H (11.5-15.5) % Plt Count (150-450) k/uL Neutrophils # 13.8 H (1.3-7.7) k/uL Lymphocytes # 0.4 L (1.0-4.8) k/uL Sodium 135 L (137-145) mmol/L Chloride 88 L (98-107) mmol/L Carbon Dioxide 36 H (22-30) mmol/L BUN 118 H* (7-17) mg/dL Creatinine 3.74 H (0.52-1.04) mg/dL Glucose 129 H (74-99) mg/dL AST (14-36) U/L ALT (4-34) U/L Amylase (30-110) U/L
[2023-02-03] MEDS ORDERED: DEXTROSE 50% SYRINGE 50 ML IVP PRN ×2 (14:31)
--- NOTE | 2023-02-03 14:31 | P.PN ---
Subjective Progress Note Date: 02/03/23 Patient continues to be closely monitored in the intensive care unit. Remains on IV Lasix 60 mg every 12 hours patient has diuresed over 3.2 L in the last 24 hours. Discontinue significant lower extremity edema patient states that this is improving. Nephrology following closely patient's BUN today is 23, creatinine 4.05 no decision yet whether patient will begin renal replacement therapy or not. Lipase is improved today down to 345. Additionally the white count is improved to 12.9. Hemoglobin stable at 8.1 no signs of acute bleeding. Patient additionally continues on IV Solu-Medrol high-dose for the acute COPD exacerbation remains on 5 L of oxygen there is a discrepancy whether patient actually uses home oxygen or not. It is documented in the medical records the patient is on 2 L of home oxygen however when asked patient does deny and states that she has never worn oxygen at home even for short period of time. Patient has had 3 loose bowel movements today, would recommend to change lactulose to as needed titration and to be given until patient has 2-3 bowel movements per day. Most recent ammonia level has normalized and currently 14. Patient continues on IV Zosyn empirically. She remains in atrial fibrillation with rapid ventricular rate in the low 100s. Patient has not gotten up out of bed physical therapy is consulted likely patient will require subacute rehab on discharge. Patient was under the impression that she was being discharged home today. 02/03/2023 Patient remains in the intensive care unit. Mentation improving. PT/OT has been consulted and recommend subacute rehab on discharge. Patient remains on IV lasix the dose was cut back yesterday the creatinine has improved today at 3.74. BUN 118. Lipase has normalized. Patient is tolerating diet. Remains on IV zosyn. And on oral prednisone. Metoprolol was increased to TID and heart rate is slowly coming down. Review of Systems Constitutional: Reports fatigue denied any fever. Cardio vascular: denied any chest pain, palpitations Gastrointestinal: denied any nausea, vomiting, diarrhea Pulmonary: Denied any shortness of breath cough Neurologic denied any new focal deficits Reports significant weakness, All inpatient medications were reviewed and appropriate changes in these medications as dictated in the interval history and assessment and plan. PHYSICAL EXAMINATION: GENERAL: The patient is alert and oriented x2-3 patient thought she was at [facility], not in any acute distress. Well developed, well nourished. Obese. On 5L of oxygen via nasal cannula. HEENT: Pupils are round and equally reacting to light. EOMI. No scleral icterus. No conjunctival pallor. Normocephalic, atraumatic. No pharyngeal erythema. No thyromegaly. CARDIOVASCULAR: S1 and S2 present. No murmurs, rubs, or gallops. PULMONARY: Chest is clear to auscultation, no wheezing or crackles. ABDOMEN: Soft, nontender, nondistended, normoactive bowel sounds. No palpable organomegaly. MUSCULOSKELETAL: No joint swelling or deformity. EXTREMITIES: No cyanosis, clubbing, or pedal edema. +1 lower extremity pitting edema NEUROLOGICAL: Gross neurological examination did not reveal any focal deficits. Diffuse generalized weakness. SKIN: No rashes. Assessment Acute hypoxemic hypercapnic respiratory failure secondary to acute COPD exacerbation currently 3 L of oxygen she required BiPAP with an FiO2 of 45% on admission. After mental status secondary to acute metabolic and toxic encephalopathy secondary to acute renal injury and hypercapnia currently improved and alert 2- 3 Mild acute pancreatitis per her CT scan lipase has normalized. Acute renal failure with hyperkalemia due to ATN and hypotension Acute diastolic heart failure with moderate pulmonary hypertension transamnitis Chronic Atrial fibrillation with rapid ventricular rate HR in the 100s. Anemia, microcytic iron deficiency on IV ferrlecit Possible colitis with ileus History of CVA/TIA Hypertension Hyperlipidemia History of memory impairment Chronic neck and back pain status post cervical fusion surgery. Anxiety depression and panic disorder, not in active tissue GI prophylaxis on protonix BID DVT prophylaxis on eliquis 2.5 BID renal dosing Full Code Plan Diet is being upgraded to regular. Patient remains on IV zosyn Remains on IV lasix, metoprolol was increased Continues on IV ferrlecit daily PT/OT consultation and follow up labs in AM. The impression and plan of care has been dictated by Elidia Llanes, Nurse Practitioner as directed. Dr. Taisha MD I have performed a history and physical examination and medical decision making of this patient, discussed the same with the dictator, and agree with the dictators assessment and plan as written, documented as a scribe. Based on total visit time, I have performed more than 50% of this visit. Objective - Vital Signs Vital signs: Vital Signs Temp 98 F 02/03/23 02:00 Pulse 115 H 02/03/23 08:32 Resp 20 02/03/23 02:00 BP 117/74 02/03/23 02:00 Pulse Ox 94 L 02/03/23 02:00 FiO2 45 01/31/23 08:00 Intake & Output 02/02/23 02/03/23 02/03/23 18:59 06:59 18:59 Intake Total 950 300 Output Total 950 1600 Balance 0 -1300 Weight 102.2 kg Intake: Oral 950 300 Output: Urine 950 1600 Other: Voiding Method External Catheter External Catheter - Labs CBC & Chem 7: 02/03/23 10:09 02/03/23 05:44 Labs: Abnormal Lab Results - Last 24 Hours (Table) 02/01/23 02/02/23 02/02/23 Range/Units 05:02 15:53 15:53 WBC 15.4 H (3.8-10.6) k/uL Hgb 8.6 L (11.4-16.0) gm/dL Hct 30.2 L (34.0-46.0) % MCV 73.5 L (80.0-100.0) fL MCH 20.9 L (25.0-35.0) pg MCHC 28.4 L (31.0-37.0) g/dL RDW 20.4 H (11.5-15.5) % Plt Count 462 H (150-450) k/uL Neutrophils # 14.1 H (1.3-7.7) k/uL Lymphocytes # 0.4 L (1.0-4.8) k/uL Sodium 135 L (137-145) mmol/L Chloride 87 L (98-107) mmol/L Carbon Dioxide 35 H (22-30) mmol/L BUN 117 H* (7-17) mg/dL Creatinine 4.24 H (0.52-1.04) mg/dL Glucose 140 H (74-99) mg/dL AST 94 H (14-36) U/L ALT 1019 H (4-34) U/L Amylase 372 H* (30-110) U/L 02/03/23 Range/Units 05:44 WBC (3.8-10.6) k/uL Hgb (11.4-16.0) gm/dL Hct (34.0-46.0) % MCV (80.0-100.0) fL MCH (25.0-35.0) pg MCHC (31.0-37.0) g/dL RDW (11.5-15.5) % Plt Count (150-450) k/uL Neutrophils # (1.3-7.7) k/uL Lymphocytes # (1.0-4.8) k/uL Sodium 135 L (137-145) mmol/L Chloride 88 L (98-107) mmol/L Carbon Dioxide 36 H (22-30) mmol/L BUN 118 H* (7-17) mg/dL Creatinine 3.74 H (0.52-1.04) mg/dL Glucose 129 H (74-99) mg/dL AST (14-36) U/L ALT (4-34) U/L Amylase (30-110) U/L Assessment and Plan Time with Patient: Less than 30
[2023-02-03] MEDS ORDERED: ZINC OXIDE PASTE (Z-GUARD) 1 APPLIC APPLIC TOPICAL PRN (14:37)
[2023-02-03] MEDS: ACETAMINOPHEN TAB 325 MG TAB PO PRN ×2 (15:49→20:44)
[2023-02-03] MEDS: INSULIN ASPART (NovoLOG) 100 UNIT/ML VIAL SQ SCH ×2 (18:13→22:45)
[2023-02-03] MEDS: SYMBICORT 160-4.5 MCG INHALER INHALATION SCH (20:06)
[2023-02-03 22:42] LABS: Glucose,Whole Blood 175 mg/dL (70-110)
[2023-02-04 05:42] LABS: Glucose,Whole Blood 140 mg/dL (70-110)
[2023-02-04 06:10] LABS: Anisocytosis Moderate; HCT 30.1 % (34.0-46.0); HGB 8.8 gm/dL (11.4-16.0); Hypochromasia Marked; MCH 21.3 pg (25.0-35.0); MCHC 29.1 g/dL (31.0-37.0); MCV 73.3 fL (80.0-100.0); Mean Platelet Volume 7.9; Microcytosis Marked; Platelet Count 410 k/uL (150-450); Poikilocytosis Slight; RDW 21.1 % (11.5-15.5)
[2023-02-04] MEDS: PIPERACILLIN-TAZOBACTAM 3.375 GM in SODIUM CHLORIDE 0.9% 100 ML IVPB SCH (06:12)
[2023-02-04 06:13] LABS: African American GFR (CKD) 15 (>60 ml/min/1.73 sqM); Anion Gap 13 mmol/L; Calcium 9.4 mg/dL (8.4-10.2); Carbon Dioxide 36 mmol/L (22-30); Chloride 87 mmol/L (98-107); Glucose 121 mg/dL (74-99); Non-African American GFR(CKD) 13 (>60 ml/min/1.73 sqM); Potassium 3.3 mmol/L (3.5-5.1); Sodium 136 mmol/L (137-145)
[2023-02-04 06:22] LABS: Blood Urea Nitrogen 109 mg/dL (7-17)
[2023-02-04 07:17] LABS: Glucose,Whole Blood 127 mg/dL (70-110)
--- NOTE | 2023-02-04 07:19 | P.PN ---
Subjective Progress Note Date: 02/04/23 PROGRESS NOTE The patient is a 67-year-old female with chronic persistent atrial fibrillation who presented with change in mental status, worsening renal function and hypoxemia and hypercapnia. She's feeling better today. She continues to be in atrial fibrillation with episodes of rapid ventricle response. She denies any chest discomfort, dizziness or palpitations. She denies any nausea. She is fol lowing commands and appears to be more alert. There is no evidence of hypotension. Her urinary output is being. Her echocardiogram showed a preserved systolic function with no segmental wall motion abnormality. February 02: The patient is feeling well this morning, she denies any chest discomfort, dizziness or palpitations. She appears to be more awake and alert. She denies any nausea or vomiting and her appetite is good. She continues to be in atrial fibrillation with better control of her ventricular rate. She is anticoagulated. She continues to be on intravenous diuretics February 03: The patient is feeling well this morning, she continues to be in atrial fibrillation with episodes of rapid ventricle response. She denies any chest discomfort, dizziness or palpitations. She has good urinary output. She is on furosemide 60 mg IV every 12 hours. She has no hypertension. She denies any nausea or vomiting. February 04: The patient continues to do relatively well, continues to be in atrial fibrillation with better ventricle response. Her appetite is good. She denies any chest discomfort, dizziness or palpitations. Her urinary output has been stable. She is tolerating the higher dose of metoprolol. There is no evidence of ventricular ectopic activity. Medications: Lasix 60 mg every 12 hours, metoprolol succinate 50 mg 3 times a day, Zosyn. Eliquis 2.5 mg bid, insulin Physical examination: Blood pressure 130/79, heart rate 102 LUNGS: Clear to auscultation HEART: Irregular rate and rhythm, S1, S2. No S3. Systolic ejection murmur ABDOMEN: Soft, nontender, no organomegaly EXTREMETIES: + 1 edema LAB: BUN 109, creatinine 3.51, potassium 3.3, hemoglobin 8.8 IMPRESSION: 1. Acute hypoxia with hypercapnic episode, improved, 2. Chronic persistent atrial fibrillation remains with better ventricular rate control 3. Heart failure with preserved systolic function 4. Pancreatitis 5. Acute renal injury, nonoliguric 6. Acute COPD exacerbation PLAN: 1. Continue supportive care with present treatment 2. Change metoprolol to 100 mg twice a day 3. Increase physical activity 4. Follow renal functions Objective - Vital Signs Vital signs: Vital Signs Temp 97.9 F 02/04/23 04:00 Pulse 108 H 02/04/23 04:00 Resp 16 02/04/23 04:00 BP 130/79 02/04/23 04:00 Pulse Ox 96 02/04/23 04:00 FiO2 45 01/31/23 08:00 Intake & Output 02/03/23 02/04/23 02/04/23 18:59 06:59 18:59 Intake Total 240 340 Output Total 1400 1000 Balance -1160 -660 Intake: IV 240 100 0.9 NS 40 Piperacillin-Tazobactam 3 200 100 .375 gm In Sodium Chloride 0.9% 100 ml @ 25 mls/hr IVPB Q12H [facility] Rx# :[id number] Oral 240 Output: Urine 1400 1000 Other: Voiding Method External Catheter External Catheter - Labs CBC & Chem 7: 02/04/23 04:00 02/04/23 04:00 Labs: Abnormal Lab Results - Last 24 Hours (Table) 02/03/23 02/03/23 02/03/23 Range/Units 05:44 10:09 12:18 WBC 14.9 H (3.8-10.6) k/uL Hgb 8.5 L (11.4-16.0) gm/dL Hct 31.3 L (34.0-46.0) % MCV 76.7 L (80.0-100.0) fL MCH 20.8 L (25.0-35.0) pg MCHC 27.1 L (31.0-37.0) g/dL RDW 20.7 H (11.5-15.5) % Neutrophils # 13.8 H (1.3-7.7) k/uL Lymphocytes # 0.4 L (1.0-4.8) k/uL Sodium 135 L (137-145) mmol/L Potassium (3.5-5.1) mmol/L Chloride 88 L (98-107) mmol/L Carbon Dioxide 36 H (22-30) mmol/L BUN 118 H* (7-17) mg/dL Creatinine 3.74 H (0.52-1.04) mg/dL Glucose 129 H (74-99) mg/dL POC Glucose (mg/dL) 192 H (70-110) mg/dL 02/03/23 02/03/23 02/04/23 Range/Units 16:58 22:40 04:00 WBC (3.8-10.6) k/uL Hgb (11.4-16.0) gm/dL Hct (34.0-46.0) % MCV (80.0-100.0) fL MCH (25.0-35.0) pg MCHC (31.0-37.0) g/dL RDW (11.5-15.5) % Neutrophils # (1.3-7.7) k/uL Lymphocytes # (1.0-4.8) k/uL Sodium 136 L (137-145) mmol/L Potassium 3.3 L (3.5-5.1) mmol/L Chloride 87 L (98-107) mmol/L Carbon Dioxide 36 H (22-30) mmol/L BUN 109 H* (7-17) mg/dL Creatinine 3.51 H (0.52-1.04) mg/dL Glucose 121 H (74-99) mg/dL POC Glucose (mg/dL) 140 H 175 H (70-110) mg/dL 02/04/23 Range/Units 04:00 WBC 19.0 H (3.8-10.6) k/uL Hgb 8.8 L (11.4-16.0) gm/dL Hct 30.1 L (34.0-46.0) % MCV 73.3 L (80.0-100.0) fL MCH 21.3 L (25.0-35.0) pg MCHC 29.1 L (31.0-37.0) g/dL RDW 21.1 H (11.5-15.5) % Neutrophils # (1.3-7.7) k/uL Lymphocytes # (1.0-4.8) k/uL Sodium (137-145) mmol/L Potassium (3.5-5.1) mmol/L Chloride (98-107) mmol/L Carbon Dioxide (22-30) mmol/L BUN (7-17) mg/dL Creatinine (0.52-1.04) mg/dL Glucose (74-99) mg/dL POC Glucose (mg/dL) (70-110) mg/dL
[2023-02-04] MEDS: SYMBICORT 160-4.5 MCG INHALER INHALATION SCH ×3 (07:38→19:27)
[2023-02-04] MEDS: IPRATROPIUM-ALBUTEROL 3 ML NEB INHALATION SCH ×4 (07:38→19:27)
[2023-02-04] MEDS: INSULIN ASPART (NovoLOG) 100 UNIT/ML VIAL SQ SCH ×4 (07:55→20:50)
--- NOTE | 2023-02-04 08:28 | XR ---
EXAMINATION TYPE: XR chest 1V DATE OF EXAM: 02/04/2023 HISTORY: Shortness of breath. COMPARISON: 02/01/2023 TECHNIQUE: Single view of the chest is submitted. FINDINGS: Demonstrated are scattered senescent parenchymal change. Pulmonary venous congestion and cardiomegaly persist although appear to have improved. Suspect small left-sided subpulmonic effusion. Hilar and mediastinal structures are within normal limits. Degenerative changes are seen of the dorsal spine. IMPRESSION: 1. Pulmonary venous congestion and cardiomegaly persist although appear to have improved. Suspect sm all left-sided subpulmonic effusion.
[2023-02-04] MEDS: PANTOPRAZOLE 40 MG/10 ML VIAL IVP SCH ×2 (09:04→20:50)
[2023-02-04] MEDS: FUROSEMIDE 10 MG/ML 10 ML VIAL IV SCH ×2 (09:06→20:50)
[2023-02-04] MEDS: APIXABAN 2.5 MG TABLET PO SCH ×2 (09:10→20:50)
[2023-02-04] MEDS: DULoxetine HCL 60 MG CAPSULE.DR PO SCH (09:12)
[2023-02-04] MEDS: LORATADINE 10 MG TAB PO SCH (09:13)
[2023-02-04] MEDS: METOPROLOL SUCCINATE (ER) 100 MG TAB.ER.24H PO SCH ×2 (09:14→20:55)
[2023-02-04] MEDS: predniSONE 10 MG TAB PO SCH (09:14)
[2023-02-04] MEDS: SODIUM FERRIC GLUCONAT-SUCROSE 125 MG in SODIUM CHLORIDE 0.9% 100 ML IVPB SCH (09:15)
[2023-02-04] MEDS: ACETAMINOPHEN TAB 325 MG TAB PO PRN ×3 (09:24→16:57)
[2023-02-04] MEDS: POTASSIUM CHLORIDE ER 10 MEQ TAB.ER.PRT PO SCH ×2 (10:49→12:06)
--- NOTE | 2023-02-04 11:27 | P.PN ---
Subjective Patient is seen in follow-up for acute kidney injury. Creatinine trending down. Nonoliguric. On IV Lasix. On regular diet. On nasal cannula. Denies chest pain or shortness of breath. No active complaints. Vital signs are stable. General: No acute distress. HEENT: Head exam is unremarkable. On nasal cannula. LUNGS: No audible rhonchi or wheezes. HEART: Rate and Rhythm are regular. ABDOMEN: Nontender. EXTREMITITES: 1+ edema. Objective - Vital Signs Vital signs: Vital Signs Temp 97.9 F 02/04/23 04:00 Pulse 105 H 02/04/23 09:00 Resp 16 02/04/23 08:00 BP 135/80 02/04/23 09:00 Pulse Ox 97 02/04/23 09:00 FiO2 45 01/31/23 08:00 Intake & Output 02/03/23 02/04/23 02/04/23 18:59 06:59 18:59 Intake Total 240 340 Output Total 1400 1000 Balance -1160 -660 Intake: IV 240 100 0.9 NS 40 Piperacillin-Tazobactam 3 200 100 .375 gm In Sodium Chloride 0.9% 100 ml @ 25 mls/hr IVPB Q12H [facility] Rx# :[id number] Oral 240 Output: Urine 1400 1000 Other: Voiding Method External Catheter External Catheter External Catheter - Labs CBC & Chem 7: 02/04/23 04:00 02/04/23 04:00 Labs: Abnormal Lab Results - Last 24 Hours (Table) 02/03/23 02/03/23 02/03/23 Range/Units 12:18 16:58 22:40 WBC (3.8-10.6) k/uL Hgb (11.4-16.0) gm/dL Hct (34.0-46.0) % MCV (80.0-100.0) fL MCH (25.0-35.0) pg MCHC (31.0-37.0) g/dL RDW (11.5-15.5) % Sodium (137-145) mmol/L Potassium (3.5-5.1) mmol/L Chloride (98-107) mmol/L Carbon Dioxide (22-30) mmol/L BUN (7-17) mg/dL Creatinine (0.52-1.04) mg/dL Glucose (74-99) mg/dL POC Glucose (mg/dL) 192 H 140 H 175 H (70-110) mg/dL Hemoglobin A1c (<=6.0) % 02/04/23 02/04/23 02/04/23 Range/Units 04:00 04:00 04:00 WBC 19.0 H (3.8-10.6) k/uL Hgb 8.8 L (11.4-16.0) gm/dL Hct 30.1 L (34.0-46.0) % MCV 73.3 L (80.0-100.0) fL MCH 21.3 L (25.0-35.0) pg MCHC 29.1 L (31.0-37.0) g/dL RDW 21.1 H (11.5-15.5) % Sodium 136 L (137-145) mmol/L Potassium 3.3 L (3.5-5.1) mmol/L Chloride 87 L (98-107) mmol/L Carbon Dioxide 36 H (22-30) mmol/L BUN 109 H* (7-17) mg/dL Creatinine 3.51 H (0.52-1.04) mg/dL Glucose 121 H (74-99) mg/dL POC Glucose (mg/dL) (70-110) mg/dL Hemoglobin A1c 6.6 H (<=6.0) % 02/04/23 Range/Units 07:15 WBC (3.8-10.6) k/uL Hgb (11.4-16.0) gm/dL Hct (34.0-46.0) % MCV (80.0-100.0) fL MCH (25.0-35.0) pg MCHC (31.0-37.0) g/dL RDW (11.5-15.5) % Sodium (137-145) mmol/L Potassium (3.5-5.1) mmol/L Chloride (98-107) mmol/L Carbon Dioxide (22-30) mmol/L BUN (7-17) mg/dL Creatinine (0.52-1.04) mg/dL Glucose (74-99) mg/dL POC Glucose (mg/dL) 127 H (70-110) mg/dL Hemoglobin A1c (<=6.0) % Assessment and Plan Plan: Assessment: 1. Acute kidney injury secondary to ATN secondary to hypotension and component of cardiorenal syndrome. UA benign. No hydronephrosis noted on CT. Creatinine 1 in July 2021. Creatinine peaked at 4.5 at this admission and is 3.51 today. Nonoliguric. Elevated BUN partially due to steroids. 2. Volume overload. Improving with diuresis. 3. Acute on chronic diastolic CHF with moderate pulmonary hypertension. 4. Acute pancreatitis. On regular diet now. 5. Anemia with severe iron deficiency receiving IV iron. 6. Acute hypoxic and hypercapnic respiratory failure. 7. Hyperkalemia secondary to acute kidney injury. Improved. Now hypokalemic from diuresis and being replaced. Plan: Maintain IV Lasix. Potassium replaced. Avoid nephrotoxins. Stop IV iron. Add Aranesp Continue to monitor renal function and urine output. No need for renal replacement therapy at this time.
[2023-02-04 11:36] LABS: Glucose,Whole Blood 179 mg/dL (70-110)
--- NOTE | 2023-02-04 11:49 | P.PN ---
Subjective Progress Note Date: 02/04/23 This is a 67-year-old female with a known history of hypertension, hyperlipidemia, fibromyalgia, CVA/TIA, memory impairment, anxiety/depression/panic disorder, chronic and ongoing tobacco dependence. She was brought into the emergency room by her to start afternoon after finding her to be quite drowsy. He had trouble getting her up. She had trouble bearing her own weight. She was confused. Apparently she had taken extra Klonopin. Computed tomography scan of the brain revealed chronic small vessel ischemic changes without acute intracranial process. Chest x-ray revealed chronic changes but no acute pulmonary disease. Echocardiogram revealed preserved left ventricular systolic function. Severe right ventricular enlargement with moderate pulmonary hypertension. Abdominal ultrasound revealed no acute process. White count 18.2. Hemoglobin 8.3. Platelets 605. Sodium 129. Potassium 6.4. Bicarb 25. BUN 82. Creatinine 4.25. AST 4961. ALT 4711. Ammonia level XL. Creatinine kinase 471. BNP 11,700. Urine drug screen positive for opiates, oxycodone, tricyclic antidepressants. Initial arterial blood gases on 36% FiO2 revealed a P O2 of 38, pCO2 of 100 and a pH of 7.05. She was placed on BiPAP 15/5 and 32% FiO2 and follow-up blood gases revealed a pO2 of 56, pCO2 of 85 and a pH of 7.11. She is seen today in consultation in the emergency department. She is currently resting on a stretcher. Arousable. Not able to give much information. Follow-up arterial blood gases on 36% FiO2 revealed a pO2 of 69, pCO2 of 63 and a pH of 7.23. Patient was reevaluated today on 01/30/2023, patient remains on BiPAP, continues to be confused, she is arousable, but does not seem to be quite alert and oriented. In spite of being on BiPAP for the last 24 hours, repeat ABG on 40% FiO2 with IPAP of 16 and EPAP of 6 showed a pO2 of 56 E. CO2 74 and pH of 7.22 which is clearly a worsening ABG compared to the ABG noted yesterday. With worsening hypoxia worsening hypercapnia and worsening pH. Hence after evaluating the patient I recommended immediate transfer to the ICU and will continue BiPAP, we will check a follow-up chest x-ray, if the patient does not improve much, and we will continue diuretics, may have to consider intubating the patient and placement on mechanical ventilation. Chest x-ray this morning continues to show cardiomegaly and interstitial edema, doubt underlying pneumonia. WBC count today is 15.7 hemoglobin is 8.2 sodium is 130 potassium 5.8 BUN is 105 creatinine 4.41. Liver enzymes are worsening with worsening AST of over 1500, ALT was close to 5000s, CPK is 471 Procalcitonin is 0.77, CT of the abdomen and pelvis showed mild pancreatitis with colonic dilatation suggestive of colonic ileus. Patient was seen by general surgery on consulta tion for her abnormal CT of the abdomen and pelvis and recommended mostly conservative measures Reevaluated today on 01/31/2023, patient was transferred to ICU yesterday, remains in the ICU, remains on BiPAP 15/45%. Overnight the patient was extremely agitated and restless, and kept pulling her BiPAP, hence she was placed on Precedex which is now at 1 mcg/kg/h. For her atrial fibrillation with RVR remains on Cardizem at 5 mg per hour. Patient remains on Zosyn she also remains on Lasix at 40 mg IV push every 8 hours. Chest x-ray is showing definite improvement. Follow-up ABG today on the BiPAP showed significant improvement compared to yesterday with improving oxygenation pO2 105 improving pCO2 down to 60 from 74 and improving pH from 7.22 to 7.34 liver enzymes are elevated but improving and malaise is elevated at 348 and lipase is 1070 chest x-ray is showing improvement in her interstitial edema but not fully resolved. The patient is seen today 02/01/2023 in follow-up in the intensive care unit. She is awake and alert in no acute distress. Sitting up in bed. She is curren tly off the BiPAP. She is maintaining good O2 saturations in the 90s on 4 L/m per nasal cannula. She is receiving normal saline at 20 ML's per hour. White count 14.7. Hemoglobin 7.6. Platelets 452. Sodium 135. Potassium 4.7. Bicarb 30. BUN 123. Creatinine 4.20. Glucose 107. Amylase 372. Lipase 593. She is currently in a -2.1 L balance. She remains on Lasix 60 mg every 8 hours. Continue bronchodilators and steroids. Anticoagulated with Eliquis. Antibiotics in the form of Zosyn. The patient is seen today 02/02/2023 in follow-up in the intensive care unit. She is sitting up in bed. Awake and alert in no acute distress. She is maintaining good O2 saturations in the 90s on 3 L/m per nasal cannula. She has normal saline at 20 ML's per hour. White count 12.9. Hemoglobin 8.1. Platelets 421. Sodium 135. Potassium 4.1. Bicarb 33. BUN 123. Creatinine 4.05. Glucose 142. Lipase 345. She is continued on bronchodilators and steroids. Anticoagulated with Eliquis. Antibiotics in the form of Zosyn. She remains on IV diuretics. Currently in a -1.7 L balance. The patient is seen today 02/03/2023 in follow-up in the intensive care unit. She has a regular medical floor overflow patient. She is currently sitting up in bed. Awake and alert in no acute distress. She is maintaining O2 saturation in the 90s on 3 L/m per nasal cannula. She remains quite weak. She is continued on DuoNeb inhalations, Pulmicort and performs inhalations, IV Solu- Medrol. She remains on antibiotics in the form of Zosyn. Anticoagulated with Eliquis. Remains on IV Lasix. Currently in a -1.3 L balance. Count 14.9. Hemoglobin 8.5. Platelets 413. Sodium 135. Potassium 4.4. Bicarb 36. BUN 118. Creatinine 3.74. Glucose 129. Lipase 267. The patient is seen today 02/04/2023 in follow-up in the intensive care unit. She is a regular medical floor overflow. She is resting comfortably in bed. Awake and alert in no acute distress. Maintaining good O2 saturations in the 90s on 2 L/m per nasal cannula. She does desaturate to 84% on room air. She has normal saline at 20 ML's per hour. She is continued on Lasix 60 mg IV every 12 hours. She remains on Symbicort and DuoNeb inhalations, prednisone taper. Anticoagulated with Eliquis. Remains on antibiotics in the form of Zosyn. She is currently in a -1.8 L balance. White count 19.0. Hemoglobin 8.8. Platelets 410. Sodium 136. Potassium 3.3. Bicarb 36. BUN 109. Creatinine 3.51. Glucose 143. Objective - Vital Signs Vital signs: Vital Signs Temp 97.9 F 02/04/23 04:00 Pulse 105 H 02/04/23 09:00 Resp 16 02/04/23 08:00 BP 135/80 02/04/23 09:00 Pulse Ox 97 02/04/23 09:00 FiO2 45 01/31/23 08:00 Intake & Output 02/03/23 02/04/23 02/04/23 18:59 06:59 18:59 Intake Total 240 340 Output Total 1400 1000 Balance -1160 -660 Weight 102.2 kg Intake: IV 240 100 0.9 NS 40 Piperacillin-Tazobactam 3 200 100 .375 gm In Sodium Chloride 0.9% 100 ml @ 25 mls/hr IVPB Q12H [facility] Rx# :[id number] Oral 240 Output: Urine 1400 1000 Other: Voiding Method External Catheter External Catheter External Catheter - Exam GENERAL EXAM: Alert, pleasant 67-year-old female, on 2 L nasal cannula, comfor table in no apparent distress. HEAD: Normocephalic. EYES: Normal reaction of pupils, equal size. NOSE: Clear with pink turbinates. THROAT: No erythema or exudates. NECK: No masses, no JVD. CHEST: No chest wall deformity. LUNGS: Equal air entry with bilateral end expiratory wheeze, few scattered rhon chi. CVS: S1 and S2 normal with no audible murmur, regular rhythm. ABDOMEN: No hepatosplenomegaly, normal bowel sounds, no guarding or rigidity. SPINE: No scoliosis or deformity SKIN: No rashes CENTRAL NERVOUS SYSTEM: No focal deficits, tone is normal in all 4 extremities. EXTREMITIES: There is no peripheral edema. No clubbing, no cyanosis. Peripheral pulses are intact. - Labs CBC & Chem 7: 02/04/23 04:00 02/04/23 04:00 Labs: Abnormal Lab Results - Last 24 Hours (Table) 02/03/23 02/03/23 02/03/23 Range/Units 12:18 16:58 22:40 WBC (3.8-10.6) k/uL Hgb (11.4-16.0) gm/dL Hct (34.0-46.0) % MCV (80.0-100.0) fL MCH (25.0-35.0) pg MCHC (31.0-37.0) g/dL RDW (11.5-15.5) % Sodium (137-145) mmol/L Potassium (3.5-5.1) mmol/L Chloride (98-107) mmol/L Carbon Dioxide (22-30) mmol/L BUN (7-17) mg/dL Creatinine (0.52-1.04) mg/dL Glucose (74-99) mg/dL POC Glucose (mg/dL) 192 H 140 H 175 H (70-110) mg/dL Hemoglobin A1c (<=6.0) % 02/04/23 02/04/23 02/04/23 Range/Units 04:00 04:00 04:00 WBC 19.0 H (3.8-10.6) k/uL Hgb 8.8 L (11.4-16.0) gm/dL Hct 30.1 L (34.0-46.0) % MCV 73.3 L (80.0-100.0) fL MCH 21.3 L (25.0-35.0) pg MCHC 29.1 L (31.0-37.0) g/dL RDW 21.1 H (11.5-15.5) % Sodium 136 L (137-145) mmol/L Potassium 3.3 L (3.5-5.1) mmol/L Chloride 87 L (98-107) mmol/L Carbon Dioxide 36 H (22-30) mmol/L BUN 109 H* (7-17) mg/dL Creatinine 3.51 H (0.52-1.04) mg/dL Glucose 121 H (74-99) mg/dL POC Glucose (mg/dL) (70-110) mg/dL Hemoglobin A1c 6.6 H (<=6.0) % 02/04/23 02/04/23 Range/Units 07:15 11:35 WBC (3.8-10.6) k/uL Hgb (11.4-16.0) gm/dL Hct (34.0-46.0) % MCV (80.0-100.0) fL MCH (25.0-35.0) pg MCHC (31.0-37.0) g/dL RDW (11.5-15.5) % Sodium (137-145) mmol/L Potassium (3.5-5.1) mmol/L Chloride (98-107) mmol/L Carbon Dioxide (22-30) mmol/L BUN (7-17) mg/dL Creatinine (0.52-1.04) mg/dL Glucose (74-99) mg/dL POC Glucose (mg/dL) 127 H 179 H (70-110) mg/dL Hemoglobin A1c (<=6.0) % Assessment and Plan Assessment: Altered mental status secondary to hypercapnic respiratory failure secondary to possible extra Klonopin use as well as an acute exacerbation of diastolic congestive heart failure Acute hypoxemic and hypercapnic respiratory failure secondary to above improved and on 2 L cannula Metabolic encephalopathy secondary to above, elevated ammonia level, recovered Leukocytosis Anemia Acute kidney injury, current creatinine 3.51 Hyperkalemia Acute transaminitis trending down Acute pancreatitis, lipase improved and at 267 Troponin leak Urine drug screen is positive for opiates, oxycodone and tricyclic antidepressants History of fibromyalgia History of anxiety/depression/panic disorder Hyperlipidemia Hypertension Memory impairment Chronic and ongoing tobacco dependence Chronic atrial fibrillation anticoagulant with Eliquis Plan: The patient was seen and evaluated Labs and medications reviewed Titrate down the FiO2 as tolerated Continue the current treatment plan Diuretics per nephrology We will continue to follow I have personally seen and examined the patient, performed the documentation and the assessment and plan as written. Number of minutes spent on the visit: 10.
[2023-02-04] MEDS: DARBEPOETIN ALFA 40 MCG/0.4 ML SYRINGE SQ SCH (12:25)
--- NOTE | 2023-02-04 14:41 | P.PN ---
Subjective Progress Note Date: 02/04/23 Patient continues to be closely monitored in the intensive care unit. Remains on IV Lasix 60 mg every 12 hours patient has diuresed over 3.2 L in the last 24 hours. Discontinue significant lower extremity edema patient states that this is improving. Nephrology following closely patient's BUN today is 23, creatinine 4.05 no decision yet whether patient will begin renal replacement therapy or not. Lipase is improved today down to 345. Additionally the white count is improved to 12.9. Hemoglobin stable at 8.1 no signs of acute bleeding. Patient additionally continues on IV Solu-Medrol high-dose for the acute COPD exacerbation remains on 5 L of oxygen there is a discrepancy whether patient actually uses home oxygen or not. It is documented in the medical records the patient is on 2 L of home oxygen however when asked patient does deny and states that she has never worn oxygen at home even for short period of time. Patient has had 3 loose bowel movements today, would recommend to change lactulose to as needed titration and to be given until patient has 2-3 bowel movements per day. Most recent ammonia level has normalized and currently 14. Patient continues on IV Zosyn empirically. She remains in atrial fibrillation with rapid ventricular rate in the low 100s. Patient has not gotten up out of bed physical therapy is consulted likely patient will require subacute rehab on discharge. Patient was under the impression that she was being discharged home today. 02/03/2023 Patient remains in the intensive care unit. Mentation improving. PT/OT has been consulted and recommend subacute rehab on discharge. Patient remains on IV lasix the dose was cut back yesterday the creatinine has improved today at 3.74. BUN 118. Lipase has normalized. Patient is tolerating diet. Remains on IV zosyn. And on oral prednisone. Metoprolol was increased to TID and heart rate is slowly coming down. 02/04/2023 Patient remains in intensive care unit she has been downgraded to a medical surgical bed with telemetry monitoring she is pending a bed placement. She is currently alert 3 working physical therapy sitting up in the chair today. Diet as upgraded with no further complaints of abdominal pain. Her lipase is normalized. Metoprolol was increased and heart rate is now resting between 100 and 103. Chest x-ray this morning shows pulmonary venous congestion and cardiomegaly persisting although her to improve there is a suspected small left- sided subpulmonic effusion. White count is 19.0. Hemoglobin stable at 8.8. Sodium of 136, potassium 3.3., BUN 109, creatinine 3.51. Review of Systems Constitutional: Reports fatigue denied any fever. Cardio vascular: denied any chest pain, palpitations Gastrointestinal: denied any nausea, vomiting, diarrhea Pulmonary: Denied any shortness of breath cough Neurologic denied any new focal deficits Reports significant weakness, All inpatient medications were reviewed and appropriate changes in these medications as dictated in the interval history and assessment and plan. PHYSICAL EXAMINATION: GENERAL: The patient is alert and oriented x2-3 patient thought she was at [facility], not in any acute distress. Well developed, well nourished. Obese. On 5L of oxygen via nasal cannula. HEENT: Pupils are round and equally reacting to light. EOMI. No scleral icterus. No conjunctival pallor. Normocephalic, atraumatic. No pharyngeal erythema. No thyromegaly. CARDIOVASCULAR: S1 and S2 present. No murmurs, rubs, or gallops. PULMONARY: Chest is clear to auscultation, no wheezing or crackles. ABDOMEN: Soft, nontender, nondistended, normoactive bowel sounds. No palpable organomegaly. MUSCULOSKELETAL: No joint swelling or deformity. EXTREMITIES: No cyanosis, clubbing, or pedal edema. +1 lower extremity pitting edema NEUROLOGICAL: Gross neurological examination did not reveal any focal deficits. Diffuse generalized weakness. SKIN: No rashes. Assessment Acute hypoxemic hypercapnic respiratory failure secondary to acute COPD exacerbation currently 3 L of oxygen she required BiPAP with an FiO2 of 45% on admission. After mental status secondary to acute metabolic and toxic encephalopathy secondary to acute renal injury and hypercapnia currently improved and alert 2- 3 Mild acute pancreatitis per her CT scan lipase has normalized. Acute renal failure with hyperkalemia due to ATN and hypotension Acute diastolic heart failure with moderate pulmonary hypertension Diabetes Mellitus type 2 with hemoglobin A1C 6.6. Transamnitis likely due to volume overload; improving. Chronic Atrial fibrillation with rapid ventricular rate HR in the 100s. Anemia, microcytic iron deficiency on IV ferrlecit Possible colitis with ileus History of CVA/TIA Hypertension Hyperlipidemia History of memory impairment Chronic neck and back pain status post cervical fusion surgery. Anxiety depression and panic disorder, not in active tissue GI prophylaxis on protonix BID DVT prophylaxis on eliquis 2.5 BID renal dosing Full Code Plan Diet is being upgraded to regular patient is tolerating No further indications for IV zosyn has been discontinued. Remains on IV lasix, metoprolol was increased Continues on IV ferrlecit daily PT/OT consultation and follow up labs in AM. The impression and plan of care has been dictated by Elidia Llanes Nurse Practitioner as directed. Dr. Taisha MD I have performed a history and physical examination and medical decision making of this patient, discussed the same with the dictator, and agree with the dictators assessment and plan as written, documented as a scribe. Based on total visit time, I have performed more than 50% of this visit. Objective - Vital Signs Vital signs: Vital Signs Temp 97.9 F 02/04/23 04:00 Pulse 112 H 02/04/23 12:00 Resp 20 02/04/23 12:00 BP 113/57 02/04/23 12:00 Pulse Ox 98 02/04/23 12:00 FiO2 45 01/31/23 08:00 Intake & Output 02/03/23 02/04/23 02/04/23 18:59 06:59 18:59 Intake Total 240 340 Output Total 1400 1000 Balance -1160 -660 Weight 102.2 kg Intake: IV 240 100 0.9 NS 40 Piperacillin-Tazobactam 3 200 100 .375 gm In Sodium Chloride 0.9% 100 ml @ 25 mls/hr IVPB Q12H [facility] Rx# :[id number] Oral 240 Output: Urine 1400 1000 Other: Voiding Method External Catheter External Catheter External Catheter - Labs CBC & Chem 7: 02/04/23 04:00 02/04/23 04:00 Labs: Abnormal Lab Results - Last 24 Hours (Table) 02/03/23 02/03/23 02/04/23 Range/Units 16:58 22:40 04:00 WBC (3.8-10.6) k/uL Hgb (11.4-16.0) gm/dL Hct (34.0-46.0) % MCV (80.0-100.0) fL MCH (25.0-35.0) pg MCHC (31.0-37.0) g/dL RDW (11.5-15.5) % Sodium (137-145) mmol/L Potassium (3.5-5.1) mmol/L Chloride (98-107) mmol/L Carbon Dioxide (22-30) mmol/L BUN (7-17) mg/dL Creatinine (0.52-1.04) mg/dL Glucose (74-99) mg/dL POC Glucose (mg/dL) 140 H 175 H (70-110) mg/dL Hemoglobin A1c 6.6 H (<=6.0) % 02/04/23 02/04/23 02/04/23 Range/Units 04:00 04:00 07:15 WBC 19.0 H (3.8-10.6) k/uL Hgb 8.8 L (11.4-16.0) gm/dL Hct 30.1 L (34.0-46.0) % MCV 73.3 L (80.0-100.0) fL MCH 21.3 L (25.0-35.0) pg MCHC 29.1 L (31.0-37.0) g/dL RDW 21.1 H (11.5-15.5) % Sodium 136 L (137-145) mmol/L Potassium 3.3 L (3.5-5.1) mmol/L Chloride 87 L (98-107) mmol/L Carbon Dioxide 36 H (22-30) mmol/L BUN 109 H* (7-17) mg/dL Creatinine 3.51 H (0.52-1.04) mg/dL Glucose 121 H (74-99) mg/dL POC Glucose (mg/dL) 127 H (70-110) mg/dL Hemoglobin A1c (<=6.0) % 02/04/23 Range/Units 11:35 WBC (3.8-10.6) k/uL Hgb (11.4-16.0) gm/dL Hct (34.0-46.0) % MCV (80.0-100.0) fL MCH (25.0-35.0) pg MCHC (31.0-37.0) g/dL RDW (11.5-15.5) % Sodium (137-145) mmol/L Potassium (3.5-5.1) mmol/L Chloride (98-107) mmol/L Carbon Dioxide (22-30) mmol/L BUN (7-17) mg/dL Creatinine (0.52-1.04) mg/dL Glucose (74-99) mg/dL POC Glucose (mg/dL) 179 H (70-110) mg/dL Hemoglobin A1c (<=6.0) % Assessment and Plan Time with Patient: Less than 30
[2023-02-04 17:11] LABS: Glucose,Whole Blood 163 mg/dL (70-110)
[2023-02-04] MEDS: LACTULOSE 20 GM/30 ML CUP PO SCH (20:31)
[2023-02-04 20:37] LABS: Glucose,Whole Blood 225 mg/dL (70-110)
[2023-02-04] MEDS: POTASSIUM CHLORIDE ER 20 MEQ TAB.ER PO SCH (23:09)
[2023-02-05] MEDS: POTASSIUM CHLORIDE ER 20 MEQ TAB.ER PO SCH (00:49)
[2023-02-05] MEDS: ACETAMINOPHEN TAB 325 MG TAB PO PRN ×3 (03:55→20:38)
[2023-02-05 05:32] LABS: Anisocytosis Moderate; Basophils % (A) 0 %; Eosinophils % (A) 0 %; HCT 31.6 % (34.0-46.0); Hypochromasia Marked; Lymphocytes # (A) 0.6 k/uL (1.0-4.8); Lymphocytes % (A) 2 %; MCH 21.3 pg (25.0-35.0); MCHC 28.6 g/dL (31.0-37.0); MCV 74.5 fL (80.0-100.0); Microcytosis Moderate; Monocytes # (A) 1.4 k/uL (0-1.0); Monocytes % (A) 6 %; Neutrophils # (A) 20.8 k/uL (1.3-7.7); Neutrophils % (A) 91 %; Platelet Count 374 k/uL (150-450); Poikilocytosis Slight; RBC 4.24 m/uL (3.80-5.40); RDW 21.2 % (11.5-15.5)
[2023-02-05 05:33] LABS: African American GFR (CKD) 20 (>60 ml/min/1.73 sqM); Calcium 9.2 mg/dL (8.4-10.2); Chloride 90 mmol/L (98-107); Glucose 114 mg/dL (74-99); Non-African American GFR(CKD) 17 (>60 ml/min/1.73 sqM); Potassium 3.7 mmol/L (3.5-5.1); Sodium 136 mmol/L (137-145)
[2023-02-05 05:42] LABS: Anion Gap 9 mmol/L; Carbon Dioxide 37 mmol/L (22-30)
[2023-02-05 05:56] LABS: Blood Urea Nitrogen 104 mg/dL (7-17)
[2023-02-05] MEDS ORDERED: Potassium Replacement Protocol 1 EACH MISC MISCELLANE PRN (06:00)
[2023-02-05] MEDS ORDERED: POTASSIUM CHLORIDE ER 20 MEQ TAB.ER PO SCH (06:00)
[2023-02-05 06:35] LABS: Glucose,Whole Blood 132 mg/dL (70-110)
[2023-02-05] MEDS: INSULIN ASPART (NovoLOG) 100 UNIT/ML VIAL SQ SCH ×4 (06:40→23:31)
--- NOTE | 2023-02-05 07:30 | P.PN ---
Subjective Progress Note Date: 02/05/23 PROGRESS NOTE The patient is a 67-year-old female with chronic persistent atrial fibrillation who presented with change in mental status, worsening renal function and hypoxemia and hypercapnia. She's feeling better today. She continues to be in atrial fibrillation with episodes of rapid ventricle response. She denies any chest discomfort, dizziness or palpitations. She denies any nausea. She is fol lowing commands and appears to be more alert. There is no evidence of hypotension. Her urinary output is being. Her echocardiogram showed a preserved systolic function with no segmental wall motion abnormality. February 02: The patient is feeling well this morning, she denies any chest discomfort, dizziness or palpitations. She appears to be more awake and alert. She denies any nausea or vomiting and her appetite is good. She continues to be in atrial fibrillation with better control of her ventricular rate. She is anticoagulated. She continues to be on intravenous diuretics February 03: The patient is feeling well this morning, she continues to be in atrial fibrillation with episodes of rapid ventricle response. She denies any chest discomfort, dizziness or palpitations. She has good urinary output. She is on furosemide 60 mg IV every 12 hours. She has no hypertension. She denies any nausea or vomiting. February 04: The patient continues to do relatively well, continues to be in atrial fibrillation with better ventricle response. Her appetite is good. She denies any chest discomfort, dizziness or palpitations. Her urinary output has been stable. She is tolerating the higher dose of metoprolol. There is no evidence of ventricular ectopic activity. February 05: The patient is feeling better today. Her atrial fibrillation rate is under better control. Her appetite is been.. She has been sitting up in the chair. She denies any chest discomfort, dizziness or palpitations during she has no nausea. She has good urinary output with improvement in her renal functions. Medications: Lasix 60 mg every 12 hours, metoprolol succinate 100 mg 2 times a day, Zosyn. Eliquis 2.5 mg bid, insulin Physical examination: Blood pressure 127/87, heart rate 96 LUNGS: Clear to auscultation HEART: Irregular rate and rhythm, S1, S2. No S3. Systolic ejection murmur ABDOMEN: Soft, nontender, no organomegaly EXTREMETIES: Trace edema LAB: BUN 104, creatinine 2.73, potassium 3.7, hemoglobin 9.0 IMPRESSION: 1. Acute hypoxia with hypercapnic episode, improved, 2. Chronic persistent atrial fibrillation remains with better ventricular rate control, anticoagulated 3. Heart failure with preserved systolic function 4. Pancreatitis, resolved 5. Acute renal injury, nonoliguric, improving 6. Acute COPD exacerbation PLAN: 1. Continue supportive care with present treatment 2. Transfer to telemetry 3. Increase physical activity 4. Follow renal functions Objective - Vital Signs Vital signs: Vital Signs Temp 97.5 F L 02/05/23 04:00 Pulse 96 02/05/23 07:00 Resp 17 02/05/23 07:00 BP 127/87 02/05/23 07:00 Pulse Ox 97 02/05/23 07:00 FiO2 45 01/31/23 08:00 Intake & Output 02/04/23 02/05/23 02/05/23 18:59 06:59 18:59 Intake Total 400 Output Total 600 1300 Balance -200 -1300 Weight 102.2 kg Intake: IV 160 0.9 NS 160 Oral 240 Output: Urine 600 1300 Other: Voiding Method External Catheter External Catheter # Voids 1 # Bowel Movements 1 - Labs CBC & Chem 7: 02/05/23 04:45 02/05/23 04:45 Labs: Abnormal Lab Results - Last 24 Hours (Table) 02/04/23 02/04/23 02/04/23 Range/Units 04:00 11:35 17:00 WBC (3.8-10.6) k/uL Hgb (11.4-16.0) gm/dL Hct (34.0-46.0) % MCV (80.0-100.0) fL MCH (25.0-35.0) pg MCHC (31.0-37.0) g/dL RDW (11.5-15.5) % Neutrophils # (1.3-7.7) k/uL Lymphocytes # (1.0-4.8) k/uL Monocytes # (0-1.0) k/uL Sodium (137-145) mmol/L Potassium (3.5-5.1) mmol/L Chloride (98-107) mmol/L Carbon Dioxide (22-30) mmol/L BUN (7-17) mg/dL Creatinine (0.52-1.04) mg/dL Glucose (74-99) mg/dL POC Glucose (mg/dL) 179 H 163 H (70-110) mg/dL Hemoglobin A1c 6.6 H (<=6.0) % 02/04/23 02/04/23 02/05/23 Range/Units 20:35 22:25 04:45 WBC 23.0 H (3.8-10.6) k/uL Hgb 9.0 L (11.4-16.0) gm/dL Hct 31.6 L (34.0-46.0) % MCV 74.5 L (80.0-100.0) fL MCH 21.3 L (25.0-35.0) pg MCHC 28.6 L (31.0-37.0) g/dL RDW 21.2 H (11.5-15.5) % Neutrophils # 20.8 H (1.3-7.7) k/uL Lymphocytes # 0.6 L (1.0-4.8) k/uL Monocytes # 1.4 H (0-1.0) k/uL Sodium (137-145) mmol/L Potassium 3.4 L (3.5-5.1) mmol/L Chloride (98-107) mmol/L Carbon Dioxide (22-30) mmol/L BUN (7-17) mg/dL Creatinine (0.52-1.04) mg/dL Glucose (74-99) mg/dL POC Glucose (mg/dL) 225 H (70-110) mg/dL Hemoglobin A1c (<=6.0) % 02/05/23 02/05/23 Range/Units 04:45 06:34 WBC (3.8-10.6) k/uL Hgb (11.4-16.0) gm/dL Hct (34.0-46.0) % MCV (80.0-100.0) fL MCH (25.0-35.0) pg MCHC (31.0-37.0) g/dL RDW (11.5-15.5) % Neutrophils # (1.3-7.7) k/uL Lymphocytes # (1.0-4.8) k/uL Monocytes # (0-1.0) k/uL Sodium 136 L (137-145) mmol/L Potassium (3.5-5.1) mmol/L Chloride 90 L (98-107) mmol/L Carbon Dioxide 37 H (22-30) mmol/L BUN 104 H* (7-17) mg/dL Creatinine 2.73 H (0.52-1.04) mg/dL Glucose 114 H (74-99) mg/dL POC Glucose (mg/dL) 132 H (70-110) mg/dL Hemoglobin A1c (<=6.0) %
[2023-02-05] MEDS: SYMBICORT 160-4.5 MCG INHALER INHALATION SCH ×2 (07:56→19:23)
[2023-02-05] MEDS: IPRATROPIUM-ALBUTEROL 3 ML NEB INHALATION SCH ×4 (07:56→19:23)
[2023-02-05] MEDS: LACTULOSE 20 GM/30 ML CUP PO SCH ×2 (08:27→23:31)
[2023-02-05] MEDS: DULoxetine HCL 60 MG CAPSULE.DR PO SCH (09:19)
[2023-02-05] MEDS: PANTOPRAZOLE 40 MG/10 ML VIAL IVP SCH ×2 (09:19→20:11)
[2023-02-05] MEDS: APIXABAN 2.5 MG TABLET PO SCH ×2 (09:19→20:11)
[2023-02-05] MEDS: FUROSEMIDE 10 MG/ML 10 ML VIAL IV SCH ×2 (09:19→20:11)
[2023-02-05] MEDS: METOPROLOL SUCCINATE (ER) 100 MG TAB.ER.24H PO SCH ×2 (09:19→20:12)
[2023-02-05] MEDS: predniSONE 10 MG TAB PO SCH (09:19)
[2023-02-05] MEDS: LORATADINE 10 MG TAB PO SCH (09:22)
--- NOTE | 2023-02-05 10:21 | P.PN ---
Subjective Patient is seen for follow-up for acute kidney injury and hyperkalemia. She is currently being diuresed. renal function is improving. No complaints today. Lasix at 60 mg every 12 hours. Objective - Vital Signs Vital signs: Vital Signs Temp 97.7 F 02/05/23 08:00 Pulse 112 H 02/05/23 09:00 Resp 12 02/05/23 09:00 BP 136/77 02/05/23 09:00 Pulse Ox 95 02/05/23 07:56 FiO2 45 01/31/23 08:00 Intake & Output 02/04/23 02/05/23 02/05/23 18:59 06:59 18:59 Intake Total 400 Output Total 600 1300 Balance -200 -1300 Weight 102.2 kg Intake: IV 160 0.9 NS 160 Oral 240 Output: Urine 600 1300 Other: Voiding Method External Catheter External Catheter External Catheter # Voids 1 # Bowel Movements 1 - Exam Patient is awake, comfortable. Alert oriented 3 Examination of the heart S1 and S2 Examination of the lungs bilateral breath sounds are heard Abdomen is soft obese nontender Examination of the lower extremities shows edema 2+ bilaterally with chronic skin changes - Labs CBC & Chem 7: 02/05/23 04:45 02/05/23 04:45 Labs: Abnormal Lab Results - Last 24 Hours (Table) 02/04/23 02/04/23 02/04/23 Range/Units 11:35 17:00 20:35 WBC (3.8-10.6) k/uL Hgb (11.4-16.0) gm/dL Hct (34.0-46.0) % MCV (80.0-100.0) fL MCH (25.0-35.0) pg MCHC (31.0-37.0) g/dL RDW (11.5-15.5) % Neutrophils # (1.3-7.7) k/uL Lymphocytes # (1.0-4.8) k/uL Monocytes # (0-1.0) k/uL Sodium (137-145) mmol/L Potassium (3.5-5.1) mmol/L Chloride (98-107) mmol/L Carbon Dioxide (22-30) mmol/L BUN (7-17) mg/dL Creatinine (0.52-1.04) mg/dL Glucose (74-99) mg/dL POC Glucose (mg/dL) 179 H 163 H 225 H (70-110) mg/dL 02/04/23 02/05/23 02/05/23 Range/Units 22:25 04:45 04:45 WBC 23.0 H (3.8-10.6) k/uL Hgb 9.0 L (11.4-16.0) gm/dL Hct 31.6 L (34.0-46.0) % MCV 74.5 L (80.0-100.0) fL MCH 21.3 L (25.0-35.0) pg MCHC 28.6 L (31.0-37.0) g/dL RDW 21.2 H (11.5-15.5) % Neutrophils # 20.8 H (1.3-7.7) k/uL Lymphocytes # 0.6 L (1.0-4.8) k/uL Monocytes # 1.4 H (0-1.0) k/uL Sodium 136 L (137-145) mmol/L Potassium 3.4 L (3.5-5.1) mmol/L Chloride 90 L (98-107) mmol/L Carbon Dioxide 37 H (22-30) mmol/L BUN 104 H* (7-17) mg/dL Creatinine 2.73 H (0.52-1.04) mg/dL Glucose 114 H (74-99) mg/dL POC Glucose (mg/dL) (70-110) mg/dL 02/05/23 Range/Units 06:34 WBC (3.8-10.6) k/uL Hgb (11.4-16.0) gm/dL Hct (34.0-46.0) % MCV (80.0-100.0) fL MCH (25.0-35.0) pg MCHC (31.0-37.0) g/dL RDW (11.5-15.5) % Neutrophils # (1.3-7.7) k/uL Lymphocytes # (1.0-4.8) k/uL Monocytes # (0-1.0) k/uL Sodium (137-145) mmol/L Potassium (3.5-5.1) mmol/L Chloride (98-107) mmol/L Carbon Dioxide (22-30) mmol/L BUN (7-17) mg/dL Creatinine (0.52-1.04) mg/dL Glucose (74-99) mg/dL POC Glucose (mg/dL) 132 H (70-110) mg/dL Assessment and Plan Assessment: 1. Acute kidney injury mostly ATN from hypotension Indwelling Weaver catheter present. UA is completely benign. No evidence of hydronephrosis on abdominal CT. previous creatinine 1.0 on 08/14/2021 2. Mental status changes secondary to hypercapnic respiratory failure 3. Respiratory acidosis and hypercapnic respiratory failure, improved 4. Hyperkalemia associated with acute kidney injury, improved 5. Anemia with severe iron deficiency. No active bleeding noted. Status post IV iron 6. Hyponatremia, hypervolemic 7. Hypervolemia/volume overload 8. Colonic dilatation, ileus 9. Acute pancreatitis, currently tolerating oral intake 10. Shock liver, improving Plan: Continue with IV Lasix Can resume Aldactone Avoid nephrotoxic agents
--- NOTE | 2023-02-05 11:41 | P.PN ---
Subjective Progress Note Date: 02/05/23 This is a 67-year-old female with a known history of hypertension, hyperlipidemia, fibromyalgia, CVA/TIA, memory impairment, anxiety/depression/panic disorder, chronic and ongoing tobacco dependence. She was brought into the emergency room by her to start afternoon after finding her to be quite drowsy. He had trouble getting her up. She had trouble bearing her own weight. She was confused. Apparently she had taken extra Klonopin. Computed tomography scan of the brain revealed chronic small vessel ischemic changes without acute intracranial process. Chest x-ray revealed chronic changes but no acute pulmonary disease. Echocardiogram revealed preserved left ventricular systolic function. Severe right ventricular enlargement with moderate pulmonary hypertension. Abdominal ultrasound revealed no acute process. White count 18.2. Hemoglobin 8.3. Platelets 605. Sodium 129. Potassium 6.4. Bicarb 25. BUN 82. Creatinine 4.25. AST 4961. ALT 4711. Ammonia level XL. Creatinine kinase 471. BNP 11,700. Urine drug screen positive for opiates, oxycodone, tricyclic antidepressants. Initial arterial blood gases on 36% FiO2 revealed a P O2 of 38, pCO2 of 100 and a pH of 7.05. She was placed on BiPAP 15/5 and 32% FiO2 and follow-up blood gases revealed a pO2 of 56, pCO2 of 85 and a pH of 7.11. She is seen today in consultation in the emergency department. She is currently resting on a stretcher. Arousable. Not able to give much information. Follow-up arterial blood gases on 36% FiO2 revealed a pO2 of 69, pCO2 of 63 and a pH of 7.23. Patient was reevaluated today on 01/30/2023, patient remains on BiPAP, continues to be confused, she is arousable, but does not seem to be quite alert and oriented. In spite of being on BiPAP for the last 24 hours, repeat ABG on 40% FiO2 with IPAP of 16 and EPAP of 6 showed a pO2 of 56 E. CO2 74 and pH of 7.22 which is clearly a worsening ABG compared to the ABG noted yesterday. With worsening hypoxia worsening hypercapnia and worsening pH. Hence after evaluating the patient I recommended immediate transfer to the ICU and will continue BiPAP, we will check a follow-up chest x-ray, if the patient does not improve much, and we will continue diuretics, may have to consider intubating the patient and placement on mechanical ventilation. Chest x-ray this morning continues to show cardiomegaly and interstitial edema, doubt underlying pneumonia. WBC count today is 15.7 hemoglobin is 8.2 sodium is 130 potassium 5.8 BUN is 105 creatinine 4.41. Liver enzymes are worsening with worsening AST of over 1500, ALT was close to 5000s, CPK is 471 Procalcitonin is 0.77, CT of the abdomen and pelvis showed mild pancreatitis with colonic dilatation suggestive of colonic ileus. Patient was seen by general surgery on consulta tion for her abnormal CT of the abdomen and pelvis and recommended mostly conservative measures Reevaluated today on 01/31/2023, patient was transferred to ICU yesterday, remains in the ICU, remains on BiPAP 15/45%. Overnight the patient was extremely agitated and restless, and kept pulling her BiPAP, hence she was placed on Precedex which is now at 1 mcg/kg/h. For her atrial fibrillation with RVR remains on Cardizem at 5 mg per hour. Patient remains on Zosyn she also remains on Lasix at 40 mg IV push every 8 hours. Chest x-ray is showing definite improvement. Follow-up ABG today on the BiPAP showed significant improvement compared to yesterday with improving oxygenation pO2 105 improving pCO2 down to 60 from 74 and improving pH from 7.22 to 7.34 liver enzymes are elevated but improving and malaise is elevated at 348 and lipase is 1070 chest x-ray is showing improvement in her interstitial edema but not fully resolved. The patient is seen today 02/01/2023 in follow-up in the intensive care unit. She is awake and alert in no acute distress. Sitting up in bed. She is curren tly off the BiPAP. She is maintaining good O2 saturations in the 90s on 4 L/m per nasal cannula. She is receiving normal saline at 20 ML's per hour. White count 14.7. Hemoglobin 7.6. Platelets 452. Sodium 135. Potassium 4.7. Bicarb 30. BUN 123. Creatinine 4.20. Glucose 107. Amylase 372. Lipase 593. She is currently in a -2.1 L balance. She remains on Lasix 60 mg every 8 hours. Continue bronchodilators and steroids. Anticoagulated with Eliquis. Antibiotics in the form of Zosyn. The patient is seen today 02/02/2023 in follow-up in the intensive care unit. She is sitting up in bed. Awake and alert in no acute distress. She is maintaining good O2 saturations in the 90s on 3 L/m per nasal cannula. She has normal saline at 20 ML's per hour. White count 12.9. Hemoglobin 8.1. Platelets 421. Sodium 135. Potassium 4.1. Bicarb 33. BUN 123. Creatinine 4.05. Glucose 142. Lipase 345. She is continued on bronchodilators and steroids. Anticoagulated with Eliquis. Antibiotics in the form of Zosyn. She remains on IV diuretics. Currently in a -1.7 L balance. The patient is seen today 02/03/2023 in follow-up in the intensive care unit. She has a regular medical floor overflow patient. She is currently sitting up in bed. Awake and alert in no acute distress. She is maintaining O2 saturation in the 90s on 3 L/m per nasal cannula. She remains quite weak. She is continued on DuoNeb inhalations, Pulmicort and performs inhalations, IV Solu- Medrol. She remains on antibiotics in the form of Zosyn. Anticoagulated with Eliquis. Remains on IV Lasix. Currently in a -1.3 L balance. Count 14.9. Hemoglobin 8.5. Platelets 413. Sodium 135. Potassium 4.4. Bicarb 36. BUN 118. Creatinine 3.74. Glucose 129. Lipase 267. The patient is seen today 02/04/2023 in follow-up in the intensive care unit. She is a regular medical floor overflow. She is resting comfortably in bed. Awake and alert in no acute distress. Maintaining good O2 saturations in the 90s on 2 L/m per nasal cannula. She does desaturate to 84% on room air. She has normal saline at 20 ML's per hour. She is continued on Lasix 60 mg IV every 12 hours. She remains on Symbicort and DuoNeb inhalations, prednisone taper. Anticoagulated with Eliquis. Remains on antibiotics in the form of Zosyn. She is currently in a -1.8 L balance. White count 19.0. Hemoglobin 8.8. Platelets 410. Sodium 136. Potassium 3.3. Bicarb 36. BUN 109. Creatinine 3.51. Glucose 143. Patient is seen today 02/05/2023 in follow-up in the intensive care unit. She is a regular medical floor overflow still. She is resting comfortably in bed. Awake and alert in no acute distress. Maintaining O2 saturations in the 90s on 2 L/m per nasal cannula. She remains on DuoNeb inhalations, Symbicort, prednisone taper. Anticoagulated with Eliquis. Continues on IV diuretics. Currently in a -1.5 L balance. White count 23.0. Hemoglobin 9.0. Platelets 374. Sodium 136. Potassium 3.7. Bicarb 37. BUN 104. Creatinine 2.73. Glucose 114. Objective - Vital Signs Vital signs: Vital Signs Temp 97.7 F 02/05/23 08:00 Pulse 106 H 02/05/23 11:00 Resp 25 H 02/05/23 11:00 BP 127/82 02/05/23 11:00 Pulse Ox 95 02/05/23 07:56 FiO2 45 01/31/23 08:00 Intake & Output 02/04/23 02/05/23 02/05/23 18:59 06:59 18:59 Intake Total 400 Output Total 600 1300 Balance -200 -1300 Weight 102.2 kg Intake: IV 160 0.9 NS 160 Oral 240 Output: Urine 600 1300 Other: Voiding Method External Catheter External Catheter External Catheter # Voids 1 # Bowel Movements 1 - Exam GENERAL EXAM: Alert, 67-year-old female, resting in bed, on 2 L nasal cannula, comfortable in no apparent distress. HEAD: Normocephalic. EYES: Normal reaction of pupils, equal size. NOSE: Clear with pink turbinates. THROAT: No erythema or exudates. NECK: No masses, no JVD. CHEST: No chest wall deformity. LUNGS: Equal air entry with bilateral end expiratory wheeze, few scattered rhonchi. CVS: S1 and S2 normal with no audible murmur, regular rhythm. ABDOMEN: No hepatosplenomegaly, normal bowel sounds, no guarding or rigidity. SPINE: No scoliosis or deformity SKIN: No rashes CENTRAL NERVOUS SYSTEM: No focal deficits, tone is normal in all 4 extremities. EXTREMITIES: There is no peripheral edema. No clubbing, no cyanosis. Peripheral pulses are intact. - Labs CBC & Chem 7: 02/05/23 04:45 02/05/23 04:45 Labs: Abnormal Lab Results - Last 24 Hours (Table) 02/04/23 02/04/23 02/04/23 Range/Units 17:00 20:35 22:25 WBC (3.8-10.6) k/uL Hgb (11.4-16.0) gm/dL Hct (34.0-46.0) % MCV (80.0-100.0) fL MCH (25.0-35.0) pg MCHC (31.0-37.0) g/dL RDW (11.5-15.5) % Neutrophils # (1.3-7.7) k/uL Lymphocytes # (1.0-4.8) k/uL Monocytes # (0-1.0) k/uL Sodium (137-145) mmol/L Potassium 3.4 L (3.5-5.1) mmol/L Chloride (98-107) mmol/L Carbon Dioxide (22-30) mmol/L BUN (7-17) mg/dL Creatinine (0.52-1.04) mg/dL Glucose (74-99) mg/dL POC Glucose (mg/dL) 163 H 225 H (70-110) mg/dL 02/05/23 02/05/23 02/05/23 Range/Units 04:45 04:45 06:34 WBC 23.0 H (3.8-10.6) k/uL Hgb 9.0 L (11.4-16.0) gm/dL Hct 31.6 L (34.0-46.0) % MCV 74.5 L (80.0-100.0) fL MCH 21.3 L (25.0-35.0) pg MCHC 28.6 L (31.0-37.0) g/dL RDW 21.2 H (11.5-15.5) % Neutrophils # 20.8 H (1.3-7.7) k/uL Lymphocytes # 0.6 L (1.0-4.8) k/uL Monocytes # 1.4 H (0-1.0) k/uL Sodium 136 L (137-145) mmol/L Potassium (3.5-5.1) mmol/L Chloride 90 L (98-107) mmol/L Carbon Dioxide 37 H (22-30) mmol/L BUN 104 H* (7-17) mg/dL Creatinine 2.73 H (0.52-1.04) mg/dL Glucose 114 H (74-99) mg/dL POC Glucose (mg/dL) 132 H (70-110) mg/dL Assessment and Plan Assessment: Altered mental status secondary to hypercapnic respiratory failure secondary to possible extra Klonopin use as well as an acute exacerbation of diastolic con gestive heart failure Acute hypoxemic and hypercapnic respiratory failure secondary to above improved and on 2 L cannula Metabolic encephalopathy secondary to above, elevated ammonia level, recovered Leukocytosis Anemia Acute kidney injury, current creatinine 2.73 Hyperkalemia Acute transaminitis trending down Acute pancreatitis, lipase improved and at 267 Troponin leak Urine drug screen is positive for opiates, oxycodone and tricyclic antidepressants History of fibromyalgia History of anxiety/depression/panic disorder Hyperlipidemia Hypertension Memory impairment Chronic and ongoing tobacco dependence Chronic atrial fibrillation anticoagulant with Eliquis Plan: The patient was seen and evaluated Labs and medications reviewed Increase her activity as tolerated Titrate down the FiO2 as tolerated Remains on IV diuretics Remains in a negative balance We will continue to follow I have personally seen and examined the patient, performed the documentation and the assessment and plan as written. Number of minutes spent on the visit: 10.
--- NOTE | 2023-02-05 13:33 | P.PN ---
Subjective Progress Note Date: 02/05/23 Patient continues to be closely monitored in the intensive care unit. Remains on IV Lasix 60 mg every 12 hours patient has diuresed over 3.2 L in the last 24 hours. Discontinue significant lower extremity edema patient states that this is improving. Nephrology following closely patient's BUN today is 23, creatinine 4.05 no decision yet whether patient will begin renal replacement therapy or not. Lipase is improved today down to 345. Additionally the white count is improved to 12.9. Hemoglobin stable at 8.1 no signs of acute bleeding. Patient additionally continues on IV Solu-Medrol high-dose for the acute COPD exacerbation remains on 5 L of oxygen there is a discrepancy whether patient actually uses home oxygen or not. It is documented in the medical records the patient is on 2 L of home oxygen however when asked patient does deny and states that she has never worn oxygen at home even for short period of time. Patient has had 3 loose bowel movements today, would recommend to change lactulose to as needed titration and to be given until patient has 2-3 bowel movements per day. Most recent ammonia level has normalized and currently 14. Patient continues on IV Zosyn empirically. She remains in atrial fibrillation with rapid ventricular rate in the low 100s. Patient has not gotten up out of bed physical therapy is consulted likely patient will require subacute rehab on discharge. Patient was under the impression that she was being discharged home today. 02/03/2023 Patient remains in the intensive care unit. Mentation improving. PT/OT has been consulted and recommend subacute rehab on discharge. Patient remains on IV lasix the dose was cut back yesterday the creatinine has improved today at 3.74. BUN 118. Lipase has normalized. Patient is tolerating diet. Remains on IV zosyn. And on oral prednisone. Metoprolol was increased to TID and heart rate is slowly coming down. 02/04/2023 Patient remains in intensive care unit she has been downgraded to a medical surgical bed with telemetry monitoring she is pending a bed placement. She is currently alert 3 working physical therapy sitting up in the chair today. Diet as upgraded with no further complaints of abdominal pain. Her lipase is normalized. Metoprolol was increased and heart rate is now resting between 100 and 103. Chest x-ray this morning shows pulmonary venous congestion and cardiomegaly persisting although her to improve there is a suspected small left- sided subpulmonic effusion. White count is 19.0. Hemoglobin stable at 8.8. Sodium of 136, potassium 3.3., BUN 109, creatinine 3.51. 02/05/2023 Patient is evaluated today remains in ICU as a med surg hold. Patient remains on oxygen. No shortness of breath. She has been working with PT was up in the chair yesterday. Lower extremity edema is slightly better she has compression stockings on and remains on IV lasix at 60 mg Q12h. Patient apparently has some excoriation in her buttock and possibly a stage 2 ulcer on her buttock as well. Patient states the nursing staff put barrier cream on for her. White count today up to 23.0, hemoglobin 9.0. Sodium 136, potassium 3.7. Creatinine 2.73. Review of Systems Constitutional: Reports fatigue denied any fever. Cardio vascular: denied any chest pain, palpitations Gastrointestinal: denied any nausea, vomiting, diarrhea Pulmonary: Denied any shortness of breath cough Neurologic denied any new focal deficits Reports significant weakness, All inpatient medications were reviewed and appropriate changes in these medications as dictated in the interval history and assessment and plan. PHYSICAL EXAMINATION: GENERAL: The patient is alert and oriented x2-3 patient thought she was at [facility], not in any acute distress. Well developed, well nourished. Obese. On 5L of oxygen via nasal cannula. HEENT: Pupils are round and equally reacting to light. EOMI. No scleral icterus. No conjunctival pallor. Normocephalic, atraumatic. No pharyngeal erythema. No thyromegaly. CARDIOVASCULAR: S1 and S2 present. No murmurs, rubs, or gallops. PULMONARY: Chest is clear to auscultation, no wheezing or crackles. ABDOMEN: Soft, nontender, nondistended, normoactive bowel sounds. No palpable organomegaly. MUSCULOSKELETAL: No joint swelling or deformity. EXTREMITIES: No cyanosis, clubbing, or pedal edema. +1 lower extremity pitting edema NEUROLOGICAL: Gross neurological examination did not reveal any focal deficits. Diffuse generalized weakness. SKIN: No rashes. Assessment Acute hypoxemic hypercapnic respiratory failure secondary to acute COPD exacerbation currently 2 L of oxygen she required BiPAP with an FiO2 of 45% on admission. After mental status secondary to acute metabolic and toxic encephalopathy secondary to acute renal injury and hypercapnia currently improved and alert 2- 3 Mild acute pancreatitis per her CT scan lipase has normalized. Acute renal failure with hyperkalemia due to ATN and hypotension Acute diastolic heart failure with moderate pulmonary hypertension Chronic hypoxic respiratory failure on 2L as needed at home per patient she is unsure why. Diabetes Mellitus type 2 with hemoglobin A1C 6.6. Transamnitis likely due to volume overload; improving. Chronic Atrial fibrillation with rapid ventricular rate HR in the 100s. Anemia, microcytic iron deficiency on IV ferrlecit Possible colitis with ileus History of CVA/TIA Hypertension Hyperlipidemia History of memory impairment Chronic neck and back pain status post cervical fusion surgery. Anxiety depression and panic disorder, not in active tissue GI prophylaxis on protonix BID DVT prophylaxis on eliquis 2.5 BID renal dosing Full Code Plan Diet upgraded to regular patient is tolerating White count up to 23. Blood culture, UA ordered. ID is also consulted. Remains on IV lasix, metoprolol was increased Ferrlecit has been stopped, patient has been started on aranesp Patient will require OLIMPIA on discharge Repeat labs in AM. The impression and plan of care has been dictated by Elidia Llanes, Nurse Practitioner as directed. Dr. Taisha MD I have performed a history and physical examination and medical decision making of this patient, discussed the same with the dictator, and agree with the dictators assessment and plan as written, documented as a scribe. Based on total visit time, I have performed more than 50% of this visit. Objective - Vital Signs Vital signs: Vital Signs Temp 97.7 F 02/05/23 08:00 Pulse 104 H 02/05/23 13:00 Resp 32 H 02/05/23 13:00 BP 125/83 02/05/23 13:00 Pulse Ox 98 02/05/23 13:00 FiO2 45 01/31/23 08:00 Intake & Output 02/04/23 02/05/23 02/05/23 18:59 06:59 18:59 Intake Total 400 Output Total 600 1300 Balance -200 -1300 Weight 102.2 kg Intake: IV 160 0.9 NS 160 Oral 240 Output: Urine 600 1300 Other: Voiding Method External Catheter External Catheter External Catheter # Voids 1 # Bowel Movements 1 - Labs CBC & Chem 7: 02/05/23 04:45 02/05/23 04:45 Labs: Abnormal Lab Results - Last 24 Hours (Table) 02/04/23 02/04/23 02/04/23 Range/Units 17:00 20:35 22:25 WBC (3.8-10.6) k/uL Hgb (11.4-16.0) gm/dL Hct (34.0-46.0) % MCV (80.0-100.0) fL MCH (25.0-35.0) pg MCHC (31.0-37.0) g/dL RDW (11.5-15.5) % Neutrophils # (1.3-7.7) k/uL Lymphocytes # (1.0-4.8) k/uL Monocytes # (0-1.0) k/uL Sodium (137-145) mmol/L Potassium 3.4 L (3.5-5.1) mmol/L Chloride (98-107) mmol/L Carbon Dioxide (22-30) mmol/L BUN (7-17) mg/dL Creatinine (0.52-1.04) mg/dL Glucose (74-99) mg/dL POC Glucose (mg/dL) 163 H 225 H (70-110) mg/dL 02/05/23 02/05/23 02/05/23 Range/Units 04:45 04:45 06:34 WBC 23.0 H (3.8-10.6) k/uL Hgb 9.0 L (11.4-16.0) gm/dL Hct 31.6 L (34.0-46.0) % MCV 74.5 L (80.0-100.0) fL MCH 21.3 L (25.0-35.0) pg MCHC 28.6 L (31.0-37.0) g/dL RDW 21.2 H (11.5-15.5) % Neutrophils # 20.8 H (1.3-7.7) k/uL Lymphocytes # 0.6 L (1.0-4.8) k/uL Monocytes # 1.4 H (0-1.0) k/uL Sodium 136 L (137-145) mmol/L Potassium (3.5-5.1) mmol/L Chloride 90 L (98-107) mmol/L Carbon Dioxide 37 H (22-30) mmol/L BUN 104 H* (7-17) mg/dL Creatinine 2.73 H (0.52-1.04) mg/dL Glucose 114 H (74-99) mg/dL POC Glucose (mg/dL) 132 H (70-110) mg/dL Assessment and Plan Time with Patient: Less than 30
[2023-02-05] MEDS: FLUCONAZOLE 100 MG TAB PO SCH (15:07)
[2023-02-05] MEDS: SPIRONOLACTONE 25 MG TAB PO SCH (15:33)
[2023-02-05 16:52] LABS: Glucose,Whole Blood 208 mg/dL (70-110)
[2023-02-05 20:26] LABS: Glucose,Whole Blood 110 mg/dL (70-110)
[2023-02-05 21:40] LABS: Appearance,Urine Clear (Clear); Bacteria,Urine Rare /hpf; Bilirubin,Urine Negative (Negative); Blood,Urine Trace (Negative); Budding Yeast,Urine Many /hpf; Color,Urine Colorless; Glucose,Urine (UA) Trace (Negative); Ketones,Urine Negative (Negative); Leukocyte Esterase,Urine Negative (Negative); Nitrite,Urine Negative (Negative); PH, Urine 6.5 (5.0-8.0); Protein,Urine Negative (Negative); RBC,Urine 5 /hpf (0-5); Urobilinogen,Urine <2.0 mg/dL (<2.0); WBC,Urine 1 /hpf (0-5)
--- NOTE | 2023-02-05 22:52 | P.CONS ---
History of Present Illness - Reason for Consult Consult date: 02/05/23 Leukocytosis unexplained Requesting physician: Angel Sumner - Chief Complaint Abdominal pain x few days - History of Present Illness Patient is a 67-year-old female presenting to the hospital about 8 days ago on 01/28/2023 for evaluation of drowsiness confusion patient has been diagnosed with acute hypercapnic respiratory failure with COPD exacerbation, and also have mildly elevated lipase concerning for mild pancreatitis patient did have a CT of abdominal pelvis on admission which was called for mild pancreatitis chronic dilatation with debris seen within the colon correlate for ileus patient on presentation to the hospital has been afebrile and no fever has been recorded during this hospital stay patient did have a white count of 22,000 on admission that did improve down to 12.9 however since then has been slowly trending up up to 23,000 today she also have elevated BUN and creatinine though creatinine is improving patient did have a negative UA on admission and a chest x-ray yesterday morning pulmonary vascular congestion and cardiomegaly persist although appears to have improved, infectious disease was consulted today after the patient has been in the hospital for 8 days regarding this elevated white count patient currently denies having any fever or any chills denies any headache or URI symptoms no chest pain no shortness with occasional cough patient denies having any nausea vomiting has been tolerating a regular diet and no diarrhea no urinary symptoms denies having any pain or swelling at her IV site Review of Systems Positive point and negatives has been mentioned in the HPI, complete review of systems was performed and all other systems are negative Past Medical History Past Medical History: CVA/TIA, Fibromyalgia, Hyperlipidemia, Hypertension, Kennedy ry Impairment, Osteoarthritis (OA) Additional Past Medical History / Comment(s): chronic neck and back pain, ddd, ARTHRITIS, USES CANE NEEDED FOR FIBROMYALGIA History of Any Multi-Drug Resistant Organisms: None Reported Past Surgical History: Hernia Repair, Hysterectomy Additional Past Surgical History / Comment(s): cervical fusion, Past Anesthesia/Blood Transfusion Reactions: No Reported Reaction Past Psychological History: Anxiety, Depression, Panic Disorder Smoking Status: Former smoker Past Alcohol Use History: None Reported Additional Past Alcohol Use History / Comment(s): Smoke 1 PPD since 14. Quit 1.5 years ago. Past Drug Use History: None Reported - Past Family History Mother Family Medical History: Cancer Medications and Allergies Home Medications Medication Instructions Recorded Confirmed Type DULoxetine HCL [Cymbalta] 120 mg PO DAILY 01/15/15 01/28/23 History Mirtazapine [Remeron] 45 mg PO HS 01/15/15 01/28/23 History clonazePAM [KlonoPIN] 1 mg PO BID 01/24/18 01/28/23 History oxyCODONE-APAP 10-325MG [Percocet 1 tab PO BID 01/24/18 01/28/23 History 10-325 mg] Amiodarone [Cordarone] 200 mg PO DAILY 01/28/23 01/28/23 History Apixaban [Eliquis] 5 mg PO BID 01/28/23 01/28/23 History Cyclobenzaprine [Flexeril] 5 mg PO BID PRN 01/28/23 01/28/23 History Famotidine [Pepcid] 20 mg PO BID 01/28/23 01/28/23 History Metoprolol Succinate (ER) [Toprol 50 mg PO DAILY 01/28/23 01/28/23 History Xl] Morphine Sulfate ER [Ms Contin] 30 mg PO Q12HR 01/28/23 01/28/23 History Potassium Chloride ER [K-Dur 20] 20 meq PO DAILY 01/28/23 01/28/23 History Spironolactone [Aldactone] 25 mg PO DAILY 01/28/23 01/28/23 History Suvorexant [Belsomra] 20 mg PO HS 01/28/23 01/28/23 History Torsemide [Demadex] 40 mg PO BID 01/28/23 01/28/23 History dilTIAZem HCL [dilTIAZem HCL 24Hr 120 mg PO DAILY 01/28/23 01/28/23 History ER (Xr)] Allergies Allergy/AdvReac Type Severity Reaction Status Date / Time No Known Allergies Allergy Verified 01/28/23 14:43 Physical Exam Vitals: Vital Signs Temp Pulse Resp BP Pulse Ox 02/05/23 11:00 106 H 25 H 127/82 02/05/23 10:00 95 20 131/96 02/05/23 09:00 112 H 12 136/77 02/05/23 08:00 97.7 F 103 H 19 131/78 02/05/23 07:56 95 02/05/23 07:00 96 17 127/87 97 02/05/23 06:00 103 H 5 L 122/74 96 02/05/23 05:00 98 14 121/103 96 02/05/23 04:00 97.5 F L 104 H 45 H 126/68 97 02/05/23 03:00 93 17 134/80 02/05/23 02:00 92 15 128/69 99 02/05/23 01:00 100 18 131/88 02/05/23 00:00 98.1 F 109 H 13 118/67 98 02/04/23 23:00 94 12 120/70 94 L 02/04/23 22:13 105 H 16 120/70 96 02/04/23 22:00 105 H 17 136/87 97 02/04/23 21:02 107 H 29 H 136/87 96 02/04/23 20:00 98.3 F 103 H 20 123/76 96 02/04/23 19:00 107 H 23 121/84 92 L 02/04/23 18:00 114 H 14 114/81 96 02/04/23 17:00 107 H 7 L 116/85 94 L 02/04/23 16:00 106 H 21 127/67 95 02/04/23 15:00 112 H 14 123/90 93 L 02/04/23 14:00 101 H 14 113/80 96 02/04/23 13:00 102 H 15 107/87 97 Intake and Output 02/04/23 02/05/23 02/05/23 22:59 06:59 14:59 Intake Total 280 Output Total 350 1300 Balance -70 -1300 Intake: IV 160 0.9 NS 160 Oral 120 Output: Urine 350 1300 Other: Voiding Method External Catheter External Catheter # Voids 1 # Bowel Movements 1 GENERAL DESCRIPTION: Elderly female lying in bed, no distress. No tachypnea or accessory muscle of respiration use. HEENT: Shows Pallor , no scleral icterus. Oral mucous membrane is dry. NECK: Trachea central, no thyromegaly. LUNGS: Unlabored breathing. Clear to auscultation anteriorly. HEART: S1, S2, regular rate and rhythm. No loud murmur ABDOMEN: Soft, no tenderness , EXTREMITIES: No edema of feet. SKIN: No rash, no masses palpable. NEUROLOGICAL: The patient is awake, alert, oriented x3, mood and affect normal. Results CBC & Chem 7: 02/05/23 04:45 02/05/23 04:45 Labs: Abnormal Lab Results - Last 24 Hours (Table) 02/04/23 02/04/23 02/04/23 Range/Units 17:00 20:35 22:25 WBC (3.8-10.6) k/uL Hgb (11.4-16.0) gm/dL Hct (34.0-46.0) % MCV (80.0-100.0) fL MCH (25.0-35.0) pg MCHC (31.0-37.0) g/dL RDW (11.5-15.5) % Neutrophils # (1.3-7.7) k/uL Lymphocytes # (1.0-4.8) k/uL Monocytes # (0-1.0) k/uL Sodium (137-145) mmol/L Potassium 3.4 L (3.5-5.1) mmol/L Chloride (98-107) mmol/L Carbon Dioxide (22-30) mmol/L BUN (7-17) mg/dL Creatinine (0.52-1.04) mg/dL Glucose (74-99) mg/dL POC Glucose (mg/dL) 163 H 225 H (70-110) mg/dL 02/05/23 02/05/23 02/05/23 Range/Units 04:45 04:45 06:34 WBC 23.0 H (3.8-10.6) k/uL Hgb 9.0 L (11.4-16.0) gm/dL Hct 31.6 L (34.0-46.0) % MCV 74.5 L (80.0-100.0) fL MCH 21.3 L (25.0-35.0) pg MCHC 28.6 L (31.0-37.0) g/dL RDW 21.2 H (11.5-15.5) % Neutrophils # 20.8 H (1.3-7.7) k/uL Lymphocytes # 0.6 L (1.0-4.8) k/uL Monocytes # 1.4 H (0-1.0) k/uL Sodium 136 L (137-145) mmol/L Potassium (3.5-5.1) mmol/L Chloride 90 L (98-107) mmol/L Carbon Dioxide 37 H (22-30) mmol/L BUN 104 H* (7-17) mg/dL Creatinine 2.73 H (0.52-1.04) mg/dL Glucose 114 H (74-99) mg/dL POC Glucose (mg/dL) 132 H (70-110) mg/dL Assessment and Plan (1) Leukocytosis Current Visit: Yes Status: Acute Code(s): D72.829 - ELEVATED WHITE BLOOD CELL COUNT, UNSPECIFIED SNOMED Code(s): 287620477 Plan: 1patient with elevated white count and this patient has been in the hospital for almost 8 days with initial presentation for weakness was diagnosed with COPD exacerbation also mild pancreatitis on the basis of CT and elevated amylase and lipase patient did have admission improvement in her white count though over the last 3 days her white count has been trending up however the patient has been afebrile denies any bone pain no tenderness was noticed chest x-ray negative for pneumonia no urinary symptoms no problem with the peripheral IV sites 2-we will repeat a blood culture check inflammatory markers 3-empirically add Diflucan and repeat a CBC tomorrow 4-if any worsening white count we will check a CT of abdominal pelvis to make sure no evidence of any pancreatic pseudocyst or complication associated with the pancreatitis We will follow on clinical condition and cultures to further adjust medication if needed Time spent including the time spent to review her chart of 8 days hospital stay Thank you for this consultation we will follow the patient along with you Dictation was produced using [employer] dictation software. please excuse any grammatical, word or spelling errors. Time with Patient: Greater than 30
[2023-02-06] MEDS: ACETAMINOPHEN TAB 325 MG TAB PO PRN ×4 (01:22→17:06)
[2023-02-06 05:20] LABS: Anisocytosis Moderate; Basophils % (A) 0 %; Eosinophils # (A) 0.1 k/uL (0-0.7); Eosinophils % (A) 0 %; HCT 33.4 % (34.0-46.0); HGB 9.6 gm/dL (11.4-16.0); Hypochromasia Marked; Lymphocytes # (A) 0.9 k/uL (1.0-4.8); Lymphocytes % (A) 4 %; MCH 21.4 pg (25.0-35.0); MCHC 28.7 g/dL (31.0-37.0); MCV 74.5 fL (80.0-100.0); Mean Platelet Volume 9.2; Microcytosis Moderate; Monocytes # (A) 1.2 k/uL (0-1.0); Monocytes % (A) 5 %; Neutrophils % (A) 90 %; Platelet Count 320 k/uL (150-450); Poikilocytosis Slight; RBC 4.49 m/uL (3.80-5.40); RDW 21.2 % (11.5-15.5); WBC 23.4 k/uL (3.8-10.6)
[2023-02-06 05:54] LABS: African American GFR (CKD) 23 (>60 ml/min/1.73 sqM); Blood Urea Nitrogen 91 mg/dL (7-17); C Reactive Protein 4.3 mg/dL (<1.0); Calcium 9.2 mg/dL (8.4-10.2); Carbon Dioxide 39 mmol/L (22-30); Glucose 109 mg/dL (74-99); Non-African American GFR(CKD) 20 (>60 ml/min/1.73 sqM)
[2023-02-06 06:09] LABS: Anion Gap 6 mmol/L; Chloride 91 mmol/L (98-107); Potassium 3.4 mmol/L (3.5-5.1); Sodium 136 mmol/L (137-145)
[2023-02-06 08:08] LABS: Glucose,Whole Blood 117 mg/dL (70-110)
[2023-02-06] MEDS: SYMBICORT 160-4.5 MCG INHALER INHALATION SCH ×2 (08:27→19:43)
[2023-02-06] MEDS: IPRATROPIUM-ALBUTEROL 3 ML NEB INHALATION SCH ×4 (08:27→19:43)
--- NOTE | 2023-02-06 08:30 | P.PN ---
Subjective Progress Note Date: 02/06/23 This is a 67-year-old female with a known history of hypertension, hyperlipidemia, fibromyalgia, CVA/TIA, memory impairment, anxiety/depression/panic disorder, chronic and ongoing tobacco dependence. She was brought into the emergency room by her to start afternoon after finding her to be quite drowsy. He had trouble getting her up. She had trouble bearing her own weight. She was confused. Apparently she had taken extra Klonopin. Computed tomography scan of the brain revealed chronic small vessel ischemic changes without acute intracranial process. Chest x-ray revealed chronic changes but no acute pulmonary disease. Echocardiogram revealed preserved left ventricular systolic function. Severe right ventricular enlargement with moderate pulmonary hypertension. Abdominal ultrasound revealed no acute process. White count 18.2. Hemoglobin 8.3. Platelets 605. Sodium 129. Potassium 6.4. Bicarb 25. BUN 82. Creatinine 4.25. AST 4961. ALT 4711. Ammonia level XL. Creatinine kinase 471. BNP 11,700. Urine drug screen positive for opiates, oxycodone, tricyclic antidepressants. Initial arterial blood gases on 36% FiO2 revealed a P O2 of 38, pCO2 of 100 and a pH of 7.05. She was placed on BiPAP 15/5 and 32% FiO2 and follow-up blood gases revealed a pO2 of 56, pCO2 of 85 and a pH of 7.11. She is seen today in consultation in the emergency department. She is currently resting on a stretcher. Arousable. Not able to give much information. Follow-up arterial blood gases on 36% FiO2 revealed a pO2 of 69, pCO2 of 63 and a pH of 7.23. Patient was reevaluated today on 01/30/2023, patient remains on BiPAP, continues to be confused, she is arousable, but does not seem to be quite alert and oriented. In spite of being on BiPAP for the last 24 hours, repeat ABG on 40% FiO2 with IPAP of 16 and EPAP of 6 showed a pO2 of 56 E. CO2 74 and pH of 7.22 which is clearly a worsening ABG compared to the ABG noted yesterday. With worsening hypoxia worsening hypercapnia and worsening pH. Hence after evaluating the patient I recommended immediate transfer to the ICU and will continue BiPAP, we will check a follow-up chest x-ray, if the patient does not improve much, and we will continue diuretics, may have to consider intubating the patient and placement on mechanical ventilation. Chest x-ray this morning continues to show cardiomegaly and interstitial edema, doubt underlying pneumonia. WBC count today is 15.7 hemoglobin is 8.2 sodium is 130 potassium 5.8 BUN is 105 creatinine 4.41. Liver enzymes are worsening with worsening AST of over 1500, ALT was close to 5000s, CPK is 471 [address]cit[address] is 0.77, CT of the abdomen and pelvis showed mild pancreatitis with colonic dilatation suggestive of colonic ileus. Patient was seen by general surgery on consulta tion for her abnormal CT of the abdomen and pelvis and recommended mostly conservative measures Reevaluated today on 01/31/2023, patient was transferred to ICU yesterday, remains in the ICU, remains on BiPAP 15/45%. Overnight the patient was extremely agitated and restless, and kept pulling her BiPAP, hence she was placed on Precedex which is now at 1 mcg/kg/h. For her atrial fibrillation with RVR remains on Cardizem at 5 mg per hour. Patient remains on Zosyn she also remains on Lasix at 40 mg IV push every 8 hours. Chest x-ray is showing definite improvement. Follow-up ABG today on the BiPAP showed significant improvement compared to yesterday with improving oxygenation pO2 105 improving pCO2 down to 60 from 74 and improving pH from 7.22 to 7.34 liver enzymes are elevated but improving and malaise is elevated at 348 and lipase is 1070 chest x-ray is showing improvement in her interstitial edema but not fully resolved. The patient is seen today 02/01/2023 in follow-up in the intensive care unit. She is awake and alert in no acute distress. Sitting up in bed. She is curren tly off the BiPAP. She is maintaining good O2 saturations in the 90s on 4 L/m per nasal cannula. She is receiving normal saline at 20 ML's per hour. White count 14.7. Hemoglobin 7.6. Platelets 452. Sodium 135. Potassium 4.7. Bicarb 30. BUN 123. Creatinine 4.20. Glucose 107. Amylase 372. Lipase 593. She is currently in a -2.1 L balance. She remains on Lasix 60 mg every 8 hours. Continue bronchodilators and steroids. Anticoagulated with Eliquis. Antibiotics in the form of Zosyn. The patient is seen today 02/02/2023 in follow-up in the intensive care unit. She is sitting up in bed. Awake and alert in no acute distress. She is maintaining good O2 saturations in the 90s on 3 L/m per nasal cannula. She has normal saline at 20 ML's per hour. White count 12.9. Hemoglobin 8.1. Platelets 421. Sodium 135. Potassium 4.1. Bicarb 33. BUN 123. Creatinine 4.05. Glucose 142. Lipase 345. She is continued on bronchodilators and steroids. Anticoagulated with Eliquis. Antibiotics in the form of Zosyn. She remains on IV diuretics. Currently in a -1.7 L balance. The patient is seen today 02/03/2023 in follow-up in the intensive care unit. She has a regular medical floor overflow patient. She is currently sitting up in bed. Awake and alert in no acute distress. She is maintaining O2 saturation in the 90s on 3 L/m per nasal cannula. She remains quite weak. She is continued on DuoNeb inhalations, Pulmicort and performs inhalations, IV Solu- Medrol. She remains on antibiotics in the form of Zosyn. Anticoagulated with Eliquis. Remains on IV Lasix. Currently in a -1.3 L balance. Count 14.9. Hemoglobin 8.5. Platelets 413. Sodium 135. Potassium 4.4. Bicarb 36. BUN 118. Creatinine 3.74. Glucose 129. Lipase 267. The patient is seen today 02/04/2023 in follow-up in the intensive care unit. She is a regular medical floor overflow. She is resting comfortably in bed. Awake and alert in no acute distress. Maintaining good O2 saturations in the 90s on 2 L/m per nasal cannula. She does desaturate to 84% on room air. She has normal saline at 20 ML's per hour. She is continued on Lasix 60 mg IV every 12 hours. She remains on Symbicort and DuoNeb inhalations, prednisone taper. Anticoagulated with Eliquis. Remains on antibiotics in the form of Zosyn. She is currently in a -1.8 L balance. White count 19.0. Hemoglobin 8.8. Platelets 410. Sodium 136. Potassium 3.3. Bicarb 36. BUN 109. Creatinine 3.51. Glucose 143. Patient is seen today 02/05/2023 in follow-up in the intensive care unit. She is a regular medical floor overflow still. She is resting comfortably in bed. Awake and alert in no acute distress. Maintaining O2 saturations in the 90s on 2 L/m per nasal cannula. She remains on DuoNeb inhalations, Symbicort, prednisone taper. Anticoagulated with Eliquis. Continues on IV diuretics. Currently in a -1.5 L balance. White count 23.0. Hemoglobin 9.0. Platelets 374. Sodium 136. Potassium 3.7. Bicarb 37. BUN 104. Creatinine 2.73. Glucose 114. The patient is seen today 02/06/2023 in follow-up on the regular medical floor. She is sitting up in bed. Awake and alert in no acute distress. She is maintaining good O2 saturations in the 90s on 3 L/m per nasal cannula. No IV fluids. She is continued on Symbicort, DuoNeb inhalations, prednisone taper. She is on IV diuretics. Anticoagulated with Eliquis. Currently in a -1.6 L balance. White count 23.4. Hemoglobin 9.6. Platelets 320. Sodium 136. Potassium 3.4. Bicarb 39. BUN 91. Creatinine 2.48. Glucose 109. C-reactive protein 4.3. Objective - Vital Signs Vital signs: Vital Signs Temp 98.2 F 02/06/23 02:00 Pulse 101 H 02/06/23 02:00 Resp 14 02/06/23 02:00 BP 134/93 02/06/23 02:00 Pulse Ox 97 02/06/23 02:00 FiO2 45 01/31/23 08:00 Intake & Output 02/05/23 02/06/23 02/06/23 18:59 06:59 18:59 Output Total 1000 600 Balance -1000 -600 Output: Urine 1000 600 Other: Voiding Method External Catheter External Catheter - Exam GENERAL EXAM: Alert, pleasant 67-year-old female, on 3 L nasal cannula, comfortable in no apparent distress. HEAD: Normocephalic. EYES: Normal reaction of pupils, equal size. NOSE: Clear with pink turbinates. THROAT: No erythema or exudates. NECK: No masses, no JVD. CHEST: No chest wall deformity. LUNGS: Equal air entry with bilateral end expiratory wheeze, few scattered rhonchi. CVS: S1 and S2 normal with no audible murmur, regular rhythm. ABDOMEN: No hepatosplenomegaly, normal bowel sounds, no guarding or rigidity. SPINE: No scoliosis or deformity SKIN: No rashes CENTRAL NERVOUS SYSTEM: No focal deficits, tone is normal in all 4 extremities. EXTREMITIES: There is no peripheral edema. No clubbing, no cyanosis. Peripheral pulses are intact. - Labs CBC & Chem 7: 02/06/23 04:53 02/06/23 04:53 Labs: Abnormal Lab Results - Last 24 Hours (Table) 02/05/23 02/05/23 02/05/23 Range/Units 09:06 13:40 16:51 WBC (3.8-10.6) k/uL Hgb (11.4-16.0) gm/dL Hct (34.0-46.0) % MCV (80.0-100.0) fL MCH (25.0-35.0) pg MCHC (31.0-37.0) g/dL RDW (11.5-15.5) % Neutrophils # (1.3-7.7) k/uL Lymphocytes # (1.0-4.8) k/uL Monocytes # (0-1.0) k/uL Sodium (137-145) mmol/L Potassium (3.5-5.1) mmol/L Chloride (98-107) mmol/L Carbon Dioxide (22-30) mmol/L BUN (7-17) mg/dL Creatinine (0.52-1.04) mg/dL Glucose (74-99) mg/dL POC Glucose (mg/dL) 208 H (70-110) mg/dL C-Reactive Protein (<1.0) mg/dL Procalcitonin 0.19 H (0.02-0.09) ng/mL Urine Glucose (UA) Trace H (Negative) Urine Blood Trace H (Negative) Urine Bacteria Rare H (None) /hpf Urine Yeast (Budding) Many H (None) /hpf 02/06/23 02/06/23 02/06/23 Range/Units 04:53 04:53 08:04 WBC 23.4 H (3.8-10.6) k/uL Hgb 9.6 L (11.4-16.0) gm/dL Hct 33.4 L (34.0-46.0) % MCV 74.5 L (80.0-100.0) fL MCH 21.4 L (25.0-35.0) pg MCHC 28.7 L (31.0-37.0) g/dL RDW 21.2 H (11.5-15.5) % Neutrophils # 21.0 H (1.3-7.7) k/uL Lymphocytes # 0.9 L (1.0-4.8) k/uL Monocytes # 1.2 H (0-1.0) k/uL Sodium 136 L (137-145) mmol/L Potassium 3.4 L (3.5-5.1) mmol/L Chloride 91 L (98-107) mmol/L Carbon Dioxide 39 H (22-30) mmol/L BUN 91 H (7-17) mg/dL Creatinine 2.48 H (0.52-1.04) mg/dL Glucose 109 H (74-99) mg/dL POC Glucose (mg/dL) 117 H (70-110) mg/dL C-Reactive Protein 4.3 H (<1.0) mg/dL Procalcitonin (0.02-0.09) ng/mL Urine Glucose (UA) (Negative) Urine Blood (Negative) Urine Bacteria (None) /hpf Urine Yeast (Budding) (None) /hpf Assessment and Plan Assessment: Altered mental status secondary to hypercapnic respiratory failure secondary to possible extra Klonopin use as well as an acute exacerbation of diastolic congestive heart failure Acute hypoxemic and hypercapnic respiratory failure secondary to above improved and on 3 L cannula Metabolic encephalopathy secondary to above, elevated ammonia level, recovered Leukocytosis Anemia Acute kidney injury, current creatinine 2.48 Hyperkalemia Acute transaminitis trending down Acute pancreatitis, lipase improved and at 267 Troponin leak Urine drug screen is positive for opiates, oxycodone and tricyclic antidepressants History of fibromyalgia History of anxiety/depression/panic disorder Hyperlipidemia Hypertension Memory impairment Chronic and ongoing tobacco dependence Chronic atrial fibrillation anticoagulant with Eliquis Plan: The patient was seen and evaluated Labs and medications reviewed Titrate down the FiO2 as tolerated Remains in a negative balance Increase her activity as tolerated We will continue to follow This patient was see independently by the nurse practitioner I have personally seen and examined the patient, performed the documentation and the assessment and plan as written. Number of minutes spent on the visit: 22.
[2023-02-06] MEDS: INSULIN ASPART (NovoLOG) 100 UNIT/ML VIAL SQ SCH ×4 (08:32→20:52)
[2023-02-06] MEDS: SODIUM CHLORIDE 0.9% 500 ML 500 ML IV SCH (08:53)
[2023-02-06] MEDS: METOPROLOL SUCCINATE (ER) 50 MG TAB.ER.24H PO SCH (08:54)
[2023-02-06] MEDS: LACTULOSE 20 GM/30 ML CUP PO SCH ×2 (09:00→20:49)
[2023-02-06] MEDS: FUROSEMIDE 10 MG/ML 10 ML VIAL IV SCH (09:00)
[2023-02-06] MEDS: PANTOPRAZOLE 40 MG/10 ML VIAL IVP SCH ×2 (09:00→20:46)
[2023-02-06] MEDS: predniSONE 10 MG TAB PO SCH (09:01)
[2023-02-06] MEDS: SPIRONOLACTONE 25 MG TAB PO SCH (09:01)
[2023-02-06] MEDS: APIXABAN 2.5 MG TABLET PO SCH ×2 (09:01→20:46)
[2023-02-06] MEDS: DULoxetine HCL 60 MG CAPSULE.DR PO SCH (09:01)
[2023-02-06] MEDS: LORATADINE 10 MG TAB PO SCH (09:06)
[2023-02-06] MEDS: POTASSIUM CHLORIDE ER 10 MEQ TAB.ER.PRT PO SCH ×2 (09:30→15:40)
[2023-02-06] MEDS: METOPROLOL SUCCINATE (ER) 100 MG TAB.ER.24H PO SCH ×2 (09:31→20:46)
[2023-02-06] MEDS: FLUCONAZOLE 100 MG TAB PO SCH (09:31)
[2023-02-06] MEDS ORDERED: IOPAMIDOL CONTRAST (ORAL USE) VIAL PO PRN (10:35)
--- NOTE | 2023-02-06 12:18 | P.PN ---
Subjective Patient is seen for follow-up for acute kidney injury and hyperkalemia. She is currently being diuresed. renal function is improving. No complaints today. Lasix at 60 mg every 12 hours. 24 hour urine output at 1.9 L Objective - Vital Signs Vital signs: Vital Signs Temp 97.9 F 02/06/23 08:00 Pulse 83 02/06/23 08:00 Resp 14 02/06/23 02:00 BP 149/91 02/06/23 08:00 Pulse Ox 97 02/06/23 08:27 FiO2 45 01/31/23 08:00 Intake & Output 02/05/23 02/06/23 02/06/23 18:59 06:59 18:59 Intake Total 180 Output Total 1000 600 Balance -1000 -600 180 Intake: Oral 180 Output: Urine 1000 600 Other: Voiding Method External Catheter External Catheter External Catheter # Voids 2 - Exam Patient is awake, comfortable. Alert oriented 3 Examination of the heart S1 and S2 Examination of the lungs bilateral breath sounds are heard Abdomen is soft obese nontender Examination of the lower extremities shows edema 2+ bilaterally with chronic skin changes - Labs CBC & Chem 7: 02/06/23 04:53 02/06/23 04:53 Labs: Abnormal Lab Results - Last 24 Hours (Table) 02/05/23 02/05/23 02/05/23 Range/Units 09:06 13:40 16:51 WBC (3.8-10.6) k/uL Hgb (11.4-16.0) gm/dL Hct (34.0-46.0) % MCV (80.0-100.0) fL MCH (25.0-35.0) pg MCHC (31.0-37.0) g/dL RDW (11.5-15.5) % Neutrophils # (1.3-7.7) k/uL Lymphocytes # (1.0-4.8) k/uL Monocytes # (0-1.0) k/uL Sodium (137-145) mmol/L Potassium (3.5-5.1) mmol/L Chloride (98-107) mmol/L Carbon Dioxide (22-30) mmol/L BUN (7-17) mg/dL Creatinine (0.52-1.04) mg/dL Glucose (74-99) mg/dL POC Glucose (mg/dL) 208 H (70-110) mg/dL C-Reactive Protein (<1.0) mg/dL Procalcitonin 0.19 H (0.02-0.09) ng/mL Urine Glucose (UA) Trace H (Negative) Urine Blood Trace H (Negative) Urine Bacteria Rare H (None) /hpf Urine Yeast (Budding) Many H (None) /hpf 02/06/23 02/06/23 02/06/23 Range/Units 04:53 04:53 08:04 WBC 23.4 H (3.8-10.6) k/uL Hgb 9.6 L (11.4-16.0) gm/dL Hct 33.4 L (34.0-46.0) % MCV 74.5 L (80.0-100.0) fL MCH 21.4 L (25.0-35.0) pg MCHC 28.7 L (31.0-37.0) g/dL RDW 21.2 H (11.5-15.5) % Neutrophils # 21.0 H (1.3-7.7) k/uL Lymphocytes # 0.9 L (1.0-4.8) k/uL Monocytes # 1.2 H (0-1.0) k/uL Sodium 136 L (137-145) mmol/L Potassium 3.4 L (3.5-5.1) mmol/L Chloride 91 L (98-107) mmol/L Carbon Dioxide 39 H (22-30) mmol/L BUN 91 H (7-17) mg/dL Creatinine 2.48 H (0.52-1.04) mg/dL Glucose 109 H (74-99) mg/dL POC Glucose (mg/dL) 117 H (70-110) mg/dL C-Reactive Protein 4.3 H (<1.0) mg/dL Procalcitonin (0.02-0.09) ng/mL Urine Glucose (UA) (Negative) Urine Blood (Negative) Urine Bacteria (None) /hpf Urine Yeast (Budding) (None) /hpf Assessment and Plan Assessment: 1. Acute kidney injury mostly ATN from hypotension. UA is completely benign. No evidence of hydronephrosis on abdominal CT. previous creatinine 1.0 on 08/14/2021 2. Mental status changes secondary to hypercapnic respiratory failure, resolved 3. Respiratory acidosis and hypercapnic respiratory failure, improved 4. Hyperkalemia associated with acute kidney injury, improved 5. Anemia with severe iron deficiency. No active bleeding noted. Status post IV iron 6. Hyponatremia, hypervolemic, improved 7. Hypervolemia/volume overload 8. Colonic dilatation, ileus 9. Acute pancreatitis, currently tolerating oral intake 10. Shock liver, improving Plan: Continue with IV Lasix Can resume Aldactone Avoid nephrotoxic agents
[2023-02-06 13:04] LABS: Glucose,Whole Blood 135 mg/dL (70-110)
--- NOTE | 2023-02-06 13:20 | P.PN ---
Subjective Progress Note Date: 02/06/23 Patient continues to be closely monitored in the intensive care unit. Remains on IV Lasix 60 mg every 12 hours patient has diuresed over 3.2 L in the last 24 hours. Discontinue significant lower extremity edema patient states that this is improving. Nephrology following closely patient's BUN today is 23, creatinine 4.05 no decision yet whether patient will begin renal replacement therapy or not. Lipase is improved today down to 345. Additionally the white count is improved to 12.9. Hemoglobin stable at 8.1 no signs of acute bleeding. Patient additionally continues on IV Solu-Medrol high-dose for the acute COPD exacerbation remains on 5 L of oxygen there is a discrepancy whether patient actually uses home oxygen or not. It is documented in the medical records the patient is on 2 L of home oxygen however when asked patient does deny and states that she has never worn oxygen at home even for short period of time. Patient has had 3 loose bowel movements today, would recommend to change lactulose to as needed titration and to be given until patient has 2-3 bowel movements per day. Most recent ammonia level has normalized and currently 14. Patient continues on IV Zosyn empirically. She remains in atrial fibrillation with rapid ventricular rate in the low 100s. Patient has not gotten up out of bed physical therapy is consulted likely patient will require subacute rehab on discharge. Patient was under the impression that she was being discharged home today. 02/03/2023 Patient remains in the intensive care unit. Mentation improving. PT/OT has been consulted and recommend subacute rehab on discharge. Patient remains on IV lasix the dose was cut back yesterday the creatinine has improved today at 3.74. BUN 118. Lipase has normalized. Patient is tolerating diet. Remains on IV zosyn. And on oral prednisone. Metoprolol was increased to TID and heart rate is slowly coming down. 02/04/2023 Patient remains in intensive care unit she has been downgraded to a medical surgical bed with telemetry monitoring she is pending a bed placement. She is currently alert 3 working physical therapy sitting up in the chair today. Diet as upgraded with no further complaints of abdominal pain. Her lipase is normalized. Metoprolol was increased and heart rate is now resting between 100 and 103. Chest x-ray this morning shows pulmonary venous congestion and cardiomegaly persisting although her to improve there is a suspected small left- sided subpulmonic effusion. White count is 19.0. Hemoglobin stable at 8.8. Sodium of 136, potassium 3.3., BUN 109, creatinine 3.51. 02/05/2023 Patient is evaluated today remains in ICU as a med surg hold. Patient remains on oxygen. No shortness of breath. She has been working with PT was up in the chair yesterday. Lower extremity edema is slightly better she has compression stockings on and remains on IV lasix at 60 mg Q12h. Patient apparently has some excoriation in her buttock and possibly a stage 2 ulcer on her buttock as well. Patient states the nursing staff put barrier cream on for her. White count today up to 23.0, hemoglobin 9.0. Sodium 136, potassium 3.7. Creatinine 2.73. 02/06/2023 Patient is evaluated today on a medical floor. She reports no shortness of breath she remains on 2 L of oxygen and she does her 2 L as needed at home. She is working physical therapy however she needs encouragement to be up in the [employer] r for meals and also to use the bedside commode. Patient has not wanted to take her IV Lasix this morning as it does make her urinate frequently. She remains on 60 mg every 12 hours of IV Lasix. White count remains elevated at 23.4 patient was started on oral Diflucan and will be considered for an abdominal pelvis CT. Her creatinine continues to improve today it is 2.48. Review of Systems Constitutional: Reports fatigue denied any fever. Cardio vascular: denied any chest pain, palpitations Gastrointestinal: denied any nausea, vomiting, diarrhea Pulmonary: Denied any shortness of breath cough Neurologic denied any new focal deficits Reports significant weakness, All inpatient medications were reviewed and appropriate changes in these medications as dictated in the interval history and assessment and plan. PHYSICAL EXAMINATION: GENERAL: The patient is alert and oriented x2-3 patient thought she was at [facility], not in any acute distress. Well developed, well nourished. Obese. On 5L of oxygen via nasal cannula. HEENT: Pupils are round and equally reacting to light. EOMI. No scleral icterus. No conjunctival pallor. Normocephalic, atraumatic. No pharyngeal erythema. No thyromegaly. CARDIOVASCULAR: S1 and S2 present. No murmurs, rubs, or gallops. PULMONARY: Chest is clear to auscultation, no wheezing or crackles. ABDOMEN: Soft, nontender, nondistended, normoactive bowel sounds. No palpable organomegaly. MUSCULOSKELETAL: No joint swelling or deformity. EXTREMITIES: No cyanosis, clubbing, or pedal edema. +1 lower extremity pitting edema NEUROLOGICAL: Gross neurological examination did not reveal any focal deficits. Diffuse generalized weakness. SKIN: No rashes. Assessment Acute hypoxemic hypercapnic respiratory failure secondary to acute COPD exacerbation currently 2 L of oxygen she required BiPAP with an FiO2 of 45% on admission. After mental status secondary to acute metabolic and toxic encephalopathy secondary to acute renal injury and hypercapnia currently improved and alert 2- 3 Mild acute pancreatitis per her CT scan lipase has normalized. Acute renal failure with hyperkalemia due to ATN and hypotension Hypokalemia due to diuresis. Acute diastolic heart failure with moderate pulmonary hypertension Chronic hypoxic respiratory failure on 2L as needed at home per patient she is unsure why. Diabetes Mellitus type 2 with hemoglobin A1C 6.6. Transamnitis likely due to volume overload; improving. Chronic Atrial fibrillation with rapid ventricular rate HR in the 100s. Anemia, microcytic iron deficiency on IV ferrlecit Possible colitis with ileus History of CVA/TIA Hypertension Hyperlipidemia History of memory impairment Chronic neck and back pain status post cervical fusion surgery. Stage II right buttock ulceration hospital-acquired Anxiety depression and panic disorder, not in active tissue GI prophylaxis on protonix BID DVT prophylaxis on eliquis 2.5 BID renal dosing Full Code Plan Diet upgraded to regular patient is tolerating White count up to 23. Blood culture, UA ordered. ID is also consulted. Remains on IV lasix, metoprolol was increased Ferrlecit has been stopped, patient has been started on aranesp Replace potassium Patient is encouragement to get up out of bed and ambulate as well as up in the chair for meals Patient will require OLIMPIA on discharge Repeat labs in AM. The impression and plan of care has been dictated by Elidia Llanes, Nurse Practitioner as directed. Dr. Taisha MD I have performed a history and physical examination and medical decision making of this patient, discussed the same with the dictator, and agree with the dictators assessment and plan as written, documented as a scribe. Based on total visit time, I have performed more than 50% of this visit. Objective - Vital Signs Vital signs: Vital Signs Temp 97.9 F 02/06/23 08:00 Pulse 83 02/06/23 08:00 Resp 14 02/06/23 02:00 BP 149/91 02/06/23 08:00 Pulse Ox 97 02/06/23 08:27 FiO2 45 01/31/23 08:00 Intake & Output 02/05/23 02/06/23 02/06/23 18:59 06:59 18:59 Intake Total 180 Output Total 1000 600 Balance -1000 -600 180 Intake: Oral 180 Output: Urine 1000 600 Other: Voiding Method External Catheter External Catheter External Catheter # Voids 2 - Labs CBC & Chem 7: 02/06/23 04:53 02/06/23 04:53 Labs: Abnormal Lab Results - Last 24 Hours (Table) 02/05/23 02/05/23 02/05/23 Range/Units 09:06 13:40 16:51 WBC (3.8-10.6) k/uL Hgb (11.4-16.0) gm/dL Hct (34.0-46.0) % MCV (80.0-100.0) fL MCH (25.0-35.0) pg MCHC (31.0-37.0) g/dL RDW (11.5-15.5) % Neutrophils # (1.3-7.7) k/uL Lymphocytes # (1.0-4.8) k/uL Monocytes # (0-1.0) k/uL Sodium (137-145) mmol/L Potassium (3.5-5.1) mmol/L Chloride (98-107) mmol/L Carbon Dioxide (22-30) mmol/L BUN (7-17) mg/dL Creatinine (0.52-1.04) mg/dL Glucose (74-99) mg/dL POC Glucose (mg/dL) 208 H (70-110) mg/dL C-Reactive Protein (<1.0) mg/dL Procalcitonin 0.19 H (0.02-0.09) ng/mL Urine Glucose (UA) Trace H (Negative) Urine Blood Trace H (Negative) Urine Bacteria Rare H (None) /hpf Urine Yeast (Budding) Many H (None) /hpf 02/06/23 02/06/23 02/06/23 Range/Units 04:53 04:53 08:04 WBC 23.4 H (3.8-10.6) k/uL Hgb 9.6 L (11.4-16.0) gm/dL Hct 33.4 L (34.0-46.0) % MCV 74.5 L (80.0-100.0) fL MCH 21.4 L (25.0-35.0) pg MCHC 28.7 L (31.0-37.0) g/dL RDW 21.2 H (11.5-15.5) % Neutrophils # 21.0 H (1.3-7.7) k/uL Lymphocytes # 0.9 L (1.0-4.8) k/uL Monocytes # 1.2 H (0-1.0) k/uL Sodium 136 L (137-145) mmol/L Potassium 3.4 L (3.5-5.1) mmol/L Chloride 91 L (98-107) mmol/L Carbon Dioxide 39 H (22-30) mmol/L BUN 91 H (7-17) mg/dL Creatinine 2.48 H (0.52-1.04) mg/dL Glucose 109 H (74-99) mg/dL POC Glucose (mg/dL) 117 H (70-110) mg/dL C-Reactive Protein 4.3 H (<1.0) mg/dL Procalcitonin (0.02-0.09) ng/mL Urine Glucose (UA) (Negative) Urine Blood (Negative) Urine Bacteria (None) /hpf Urine Yeast (Budding) (None) /hpf 02/06/23 Range/Units 13:02 WBC (3.8-10.6) k/uL Hgb (11.4-16.0) gm/dL Hct (34.0-46.0) % MCV (80.0-100.0) fL MCH (25.0-35.0) pg MCHC (31.0-37.0) g/dL RDW (11.5-15.5) % Neutrophils # (1.3-7.7) k/uL Lymphocytes # (1.0-4.8) k/uL Monocytes # (0-1.0) k/uL Sodium (137-145) mmol/L Potassium (3.5-5.1) mmol/L Chloride (98-107) mmol/L Carbon Dioxide (22-30) mmol/L BUN (7-17) mg/dL Creatinine (0.52-1.04) mg/dL Glucose (74-99) mg/dL POC Glucose (mg/dL) 135 H (70-110) mg/dL C-Reactive Protein (<1.0) mg/dL Procalcitonin (0.02-0.09) ng/mL Urine Glucose (UA) (Negative) Urine Blood (Negative) Urine Bacteria (None) /hpf Urine Yeast (Budding) (None) /hpf Assessment and Plan Time with Patient: Less than 30
--- NOTE | 2023-02-06 13:20 | P.PN ---
Subjective Progress Note Date: 02/06/23 SUBJECTIVE: Patient is stable from cardiac vessel standpoint. She is having good diuresis with IV Lasix 60 mg twice a day. Her lower swelling has improved significantly. She is tolerating oral diet. Rate controlled atrial fibrillation on telemetry BP 134/93, pulse 94 Creatinine 2.4. Improved from yesterday 2.7 Hemoglobin stable around 9 PHYSICAL EXAMINATION Vital signs reviewed. Head: Normocephalic. Eyes: Sclerae nonicteric. Neck: Brisk carotid upstroke, no jugular venous distention. Lungs: Clear to auscultation. Heart: Irregularly irregular S1-S2, no S3, no murmur or rub. Abdomen: Soft nontender, Extremities: 1+ pitting edema in bilateral LE, erythema on shins No focal neurological deficit ASSESSMENT Acute hypoxic and hypercapnic respiratory failure Heart failure with preserved ejection fraction, mild volume overload Chronic persistent atrial fibrillation Pancreatitis LAIM nonoliguric improving Acute COPD exacerbation PLAN Would recommend changing Lasix to by mouth 60 mg twice a day Continue metoprolol succinate 100 mg 2 times daily and Eliquis Add Faxiga 10mg follow renal function Objective - Vital Signs Vital signs: Vital Signs Temp 97.9 F 02/06/23 08:00 Pulse 83 02/06/23 08:00 Resp 14 02/06/23 02:00 BP 149/91 02/06/23 08:00 Pulse Ox 97 02/06/23 08:27 FiO2 45 01/31/23 08:00 Intake & Output 02/05/23 02/06/23 02/06/23 18:59 06:59 18:59 Intake Total 180 Output Total 1000 600 Balance -1000 -600 180 Intake: Oral 180 Output: Urine 1000 600 Other: Voiding Method External Catheter External Catheter External Catheter # Voids 2 - Labs CBC & Chem 7: 02/06/23 04:53 02/06/23 04:53 Labs: Abnormal Lab Results - Last 24 Hours (Table) 02/05/23 02/05/23 02/05/23 Range/Units 09:06 13:40 16:51 WBC (3.8-10.6) k/uL Hgb (11.4-16.0) gm/dL Hct (34.0-46.0) % MCV (80.0-100.0) fL MCH (25.0-35.0) pg MCHC (31.0-37.0) g/dL RDW (11.5-15.5) % Neutrophils # (1.3-7.7) k/uL Lymphocytes # (1.0-4.8) k/uL Monocytes # (0-1.0) k/uL Sodium (137-145) mmol/L Potassium (3.5-5.1) mmol/L Chloride (98-107) mmol/L Carbon Dioxide (22-30) mmol/L BUN (7-17) mg/dL Creatinine (0.52-1.04) mg/dL Glucose (74-99) mg/dL POC Glucose (mg/dL) 208 H (70-110) mg/dL C-Reactive Protein (<1.0) mg/dL Procalcitonin 0.19 H (0.02-0.09) ng/mL Urine Glucose (UA) Trace H (Negative) Urine Blood Trace H (Negative) Urine Bacteria Rare H (None) /hpf Urine Yeast (Budding) Many H (None) /hpf 02/06/23 02/06/23 02/06/23 Range/Units 04:53 04:53 08:04 WBC 23.4 H (3.8-10.6) k/uL Hgb 9.6 L (11.4-16.0) gm/dL Hct 33.4 L (34.0-46.0) % MCV 74.5 L (80.0-100.0) fL MCH 21.4 L (25.0-35.0) pg MCHC 28.7 L (31.0-37.0) g/dL RDW 21.2 H (11.5-15.5) % Neutrophils # 21.0 H (1.3-7.7) k/uL Lymphocytes # 0.9 L (1.0-4.8) k/uL Monocytes # 1.2 H (0-1.0) k/uL Sodium 136 L (137-145) mmol/L Potassium 3.4 L (3.5-5.1) mmol/L Chloride 91 L (98-107) mmol/L Carbon Dioxide 39 H (22-30) mmol/L BUN 91 H (7-17) mg/dL Creatinine 2.48 H (0.52-1.04) mg/dL Glucose 109 H (74-99) mg/dL POC Glucose (mg/dL) 117 H (70-110) mg/dL C-Reactive Protein 4.3 H (<1.0) mg/dL Procalcitonin (0.02-0.09) ng/mL Urine Glucose (UA) (Negative) Urine Blood (Negative) Urine Bacteria (None) /hpf Urine Yeast (Budding) (None) /hpf 02/06/23 Range/Units 13:02 WBC (3.8-10.6) k/uL Hgb (11.4-16.0) gm/dL Hct (34.0-46.0) % MCV (80.0-100.0) fL MCH (25.0-35.0) pg MCHC (31.0-37.0) g/dL RDW (11.5-15.5) % Neutrophils # (1.3-7.7) k/uL Lymphocytes # (1.0-4.8) k/uL Monocytes # (0-1.0) k/uL Sodium (137-145) mmol/L Potassium (3.5-5.1) mmol/L Chloride (98-107) mmol/L Carbon Dioxide (22-30) mmol/L BUN (7-17) mg/dL Creatinine (0.52-1.04) mg/dL Glucose (74-99) mg/dL POC Glucose (mg/dL) 135 H (70-110) mg/dL C-Reactive Protein (<1.0) mg/dL Procalcitonin (0.02-0.09) ng/mL Urine Glucose (UA) (Negative) Urine Blood (Negative) Urine Bacteria (None) /hpf Urine Yeast (Budding) (None) /hpf
--- NOTE | 2023-02-06 13:26 | CT ---
EXAMINATION TYPE: CT abdomen pelvis wo con CT DLP: 1089.6 mGycm, Automated exposure control for dose reduction was used. DATE OF EXAM: 02/06/2023 1:01 PM COMPARISON: CT abdomen pelvis most recent from CLINICAL INDICATION:Female, 67 years old with history of leukocytosis/pancreatitis/?pseuocyst; leukoc ytosis/pancreatitis/?pseuocyst, pt c/o severe back pain TECHNIQUE: Axial CT of the abdomen and pelvis. Sagittal and coronal reformats were created on a [employer] workstation. Contrast used: mL of , (none if empty) Oral contrast used: with Oral Contrast (none if empty) FINDINGS: LOWER CHEST: Unremarkable ABDOMEN LIVER: Unremarkable GALLBLADDER AND BILE DUCTS: Unremarkable. PANCREAS: Fat stranding changes around the pancreas. No organizing fluid collection visualized at thi s time. SPLEEN: Unremarkable. ADRENAL GLANDS: Unremarkable. KIDNEYS AND URETERS: No evidence of hydronephrosis or renal calculus. The ureters are unremarkable. PELVIS BLADDER: Unremarkable REPRODUCTIVE: Unremarkable. ABDOMEN & PELVIS STOMACH AND BOWEL: No evidence of bowel obstruction. Thickened appearance of the gastric wall near th e gastroesophageal junction. Finding best appreciated on series 3 image 8. PERITONEUM/RETROPERITONEUM: No evidence of pneumoperitoneum. Trace fluid in the pelvis. VASCULATURE: No evidence of aortic aneurysm. MUSCULOSKELETAL: No acute osseous abnormalities LYMPH NODES: No gross evidence for lymphadenopathy. SOFT TISSUE/ABDOMINAL WALL: Unremarkable IMPRESSION: 1. There is compatible with acute interstitial edematous pancreatitis. No organizing fluid collectio n at this time. Evaluation for necrosis is limited without IV contrast. 2. Trace probable reactive fluid layering in the pelvis. 3. Thickened stomach wall near the gastroesophageal junction. Findings could be secondary to acute p ancreatitis findings and underdistention.
[2023-02-06] MEDS: DAPAGLIFLOZIN PROPANEDIOL 10 MG TABLET PO SCH (15:23)
[2023-02-06] MEDS: FUROSEMIDE 20 MG TAB PO SCH (15:23)
[2023-02-06 17:54] LABS: Glucose,Whole Blood 205 mg/dL (70-110)
[2023-02-06 20:50] LABS: Glucose,Whole Blood 197 mg/dL (70-110)
--- NOTE | 2023-02-06 22:05 | P.PN ---
Subjective Progress Note Date: 02/06/23 Principal diagnosis: Leukocytosis Patient is a 67-year-old female presenting to the hospital on 01/28/2023 for evaluation of drowsiness confusion patient has been diagnosed with acute hypercapnic respiratory failure with COPD exacerbation, and also have mildly elevated lipase concerning for mild pancreatitis, patient was noticed to have worsening of the white count prompting this infectious disease consultation. On today's evaluation that is 02/06/2023, the patient denies having any fever or any chills patient is breathing comfortably on 3 L nasal cannula oxygen patient denies having any chest pain shortness of breath or cough denies any abdominal pain no nausea vomiting and no diarrhea. Patient did have a white count of 23.4 creatinine is 2.48 CRP is 4.3 blood cultures currently pending. Objective - Vital Signs Vital signs: Vital Signs Temp 97.9 F 02/06/23 08:00 Pulse 83 02/06/23 08:00 Resp 14 02/06/23 02:00 BP 149/91 02/06/23 08:00 Pulse Ox 97 02/06/23 08:27 FiO2 45 01/31/23 08:00 Intake & Output 02/05/23 02/06/23 02/06/23 18:59 06:59 18:59 Intake Total 180 Output Total 1000 600 Balance -1000 -600 180 Intake: Oral 180 Output: Urine 1000 600 Other: Voiding Method External Catheter External Catheter # Voids 1 - Exam GENERAL DESCRIPTION: An elderly female lying in bed in no distress RESPIRATORY SYSTEM: Unlabored breathing , decreased breath sounds at bases HEART: S1 S2 regular rate and rhythm , ABDOMEN: Soft , no tenderness EXTREMITIES: No edema feet - Labs CBC & Chem 7: 02/06/23 04:53 02/06/23 04:53 Labs: Abnormal Lab Results - Last 24 Hours (Table) 02/05/23 02/05/23 02/05/23 Range/Units 09:06 13:40 16:51 WBC (3.8-10.6) k/uL Hgb (11.4-16.0) gm/dL Hct (34.0-46.0) % MCV (80.0-100.0) fL MCH (25.0-35.0) pg MCHC (31.0-37.0) g/dL RDW (11.5-15.5) % Neutrophils # (1.3-7.7) k/uL Lymphocytes # (1.0-4.8) k/uL Monocytes # (0-1.0) k/uL Sodium (137-145) mmol/L Potassium (3.5-5.1) mmol/L Chloride (98-107) mmol/L Carbon Dioxide (22-30) mmol/L BUN (7-17) mg/dL Creatinine (0.52-1.04) mg/dL Glucose (74-99) mg/dL POC Glucose (mg/dL) 208 H (70-110) mg/dL C-Reactive Protein (<1.0) mg/dL Procalcitonin 0.19 H (0.02-0.09) ng/mL Urine Glucose (UA) Trace H (Negative) Urine Blood Trace H (Negative) Urine Bacteria Rare H (None) /hpf Urine Yeast (Budding) Many H (None) /hpf 02/06/23 02/06/23 02/06/23 Range/Units 04:53 04:53 08:04 WBC 23.4 H (3.8-10.6) k/uL Hgb 9.6 L (11.4-16.0) gm/dL Hct 33.4 L (34.0-46.0) % MCV 74.5 L (80.0-100.0) fL MCH 21.4 L (25.0-35.0) pg MCHC 28.7 L (31.0-37.0) g/dL RDW 21.2 H (11.5-15.5) % Neutrophils # 21.0 H (1.3-7.7) k/uL Lymphocytes # 0.9 L (1.0-4.8) k/uL Monocytes # 1.2 H (0-1.0) k/uL Sodium 136 L (137-145) mmol/L Potassium 3.4 L (3.5-5.1) mmol/L Chloride 91 L (98-107) mmol/L Carbon Dioxide 39 H (22-30) mmol/L BUN 91 H (7-17) mg/dL Creatinine 2.48 H (0.52-1.04) mg/dL Glucose 109 H (74-99) mg/dL POC Glucose (mg/dL) 117 H (70-110) mg/dL C-Reactive Protein 4.3 H (<1.0) mg/dL Procalcitonin (0.02-0.09) ng/mL Urine Glucose (UA) (Negative) Urine Blood (Negative) Urine Bacteria (None) /hpf Urine Yeast (Budding) (None) /hpf Assessment and Plan (1) Leukocytosis Current Visit: Yes Status: Acute Code(s): D72.829 - ELEVATED WHITE BLOOD CELL COUNT, UNSPECIFIED SNOMED Code(s): 188040973 Plan: 1patient with elevated white count and this patient has been in the hospital for almost 8 days with initial presentation for weakness was diagnosed with COPD exacerbation also mild pancreatitis on the basis of CT and elevated amylase and lipase patient did have admission improvement in her white count though over the last 3 days her white count has been trending up however the patient has been afebrile denies any bone pain no tenderness was noticed chest x-ray negative for pneumonia no urinary symptoms no problem with the peripheral IV sites 2patient did have a persistent elevated white count we will go ahead and check a CT of abdominal pelvis to make sure no evidence of any complication associated with the pancreatitis such as pseudocyst. 3we will hold on adding any systemic antibiotic as the patient does not look toxic not running any fever Dictation was produced using [employer] dictation software. please excuse any grammatical, word or spelling errors.
[2023-02-07 07:36] LABS: Glucose,Whole Blood 109 mg/dL (70-110)
[2023-02-07] MEDS: IPRATROPIUM-ALBUTEROL 3 ML NEB INHALATION SCH ×4 (07:54→19:30)
[2023-02-07] MEDS: SYMBICORT 160-4.5 MCG INHALER INHALATION SCH ×2 (07:54→19:30)
[2023-02-07] MEDS: LACTULOSE 20 GM/30 ML CUP PO SCH ×2 (08:26→20:48)
[2023-02-07] MEDS: predniSONE 10 MG TAB PO SCH (08:29)
[2023-02-07] MEDS: LORATADINE 10 MG TAB PO SCH (08:29)
[2023-02-07] MEDS: DULoxetine HCL 60 MG CAPSULE.DR PO SCH (08:30)
[2023-02-07] MEDS: SPIRONOLACTONE 25 MG TAB PO SCH (08:30)
[2023-02-07] MEDS: PANTOPRAZOLE 40 MG/10 ML VIAL IVP SCH ×2 (08:30→20:47)
[2023-02-07] MEDS: FUROSEMIDE 20 MG TAB PO SCH ×2 (08:30→15:50)
[2023-02-07] MEDS: FLUCONAZOLE 100 MG TAB PO SCH (08:30)
[2023-02-07] MEDS: DAPAGLIFLOZIN PROPANEDIOL 10 MG TABLET PO SCH (08:31)
[2023-02-07] MEDS: METOPROLOL SUCCINATE (ER) 100 MG TAB.ER.24H PO SCH ×2 (08:31→20:46)
--- NOTE | 2023-02-07 08:32 | P.PN ---
Subjective Progress Note Date: 02/07/23 This is a 67-year-old female with a known history of hypertension, hyperlipidemia, fibromyalgia, CVA/TIA, memory impairment, anxiety/depression/panic disorder, chronic and ongoing tobacco dependence. She was brought into the emergency room by her to start afternoon after finding her to be quite drowsy. He had trouble getting her up. She had trouble bearing her own weight. She was confused. Apparently she had taken extra Klonopin. Computed tomography scan of the brain revealed chronic small vessel ischemic changes without acute intracranial process. Chest x-ray revealed chronic changes but no acute pulmonary disease. Echocardiogram revealed preserved left ventricular systolic function. Severe right ventricular enlargement with moderate pulmonary hypertension. Abdominal ultrasound revealed no acute process. White count 18.2. Hemoglobin 8.3. Platelets 605. Sodium 129. Potassium 6.4. Bicarb 25. BUN 82. Creatinine 4.25. AST 4961. ALT 4711. Ammonia level XL. Creatinine kinase 471. BNP 11,700. Urine drug screen positive for opiates, oxycodone, tricyclic antidepressants. Initial arterial blood gases on 36% FiO2 revealed a P O2 of 38, pCO2 of 100 and a pH of 7.05. She was placed on BiPAP 15/5 and 32% FiO2 and follow-up blood gases revealed a pO2 of 56, pCO2 of 85 and a pH of 7.11. She is seen today in consultation in the emergency department. She is currently resting on a stretcher. Arousable. Not able to give much information. Follow-up arterial blood gases on 36% FiO2 revealed a pO2 of 69, pCO2 of 63 and a pH of 7.23. Patient was reevaluated today on 01/30/2023, patient remains on BiPAP, continues to be confused, she is arousable, but does not seem to be quite alert and oriented. In spite of being on BiPAP for the last 24 hours, repeat ABG on 40% FiO2 with IPAP of 16 and EPAP of 6 showed a pO2 of 56 E. CO2 74 and pH of 7.22 which is clearly a worsening ABG compared to the ABG noted yesterday. With worsening hypoxia worsening hypercapnia and worsening pH. Hence after evaluating the patient I recommended immediate transfer to the ICU and will continue BiPAP, we will check a follow-up chest x-ray, if the patient does not improve much, and we will continue diuretics, may have to consider intubating the patient and placement on mechanical ventilation. Chest x-ray this morning continues to show cardiomegaly and interstitial edema, doubt underlying pneumonia. WBC count today is 15.7 hemoglobin is 8.2 sodium is 130 potassium 5.8 BUN is 105 creatinine 4.41. Liver enzymes are worsening with worsening AST of over 1500, ALT was close to 5000s, CPK is 471 Procalcitonin is 0.77, CT of the abdomen and pelvis showed mild pancreatitis with colonic dilatation suggestive of colonic ileus. Patient was seen by general surgery on consulta tion for her abnormal CT of the abdomen and pelvis and recommended mostly conservative measures Reevaluated today on 01/31/2023, patient was transferred to ICU yesterday, remains in the ICU, remains on BiPAP 15/45%. Overnight the patient was extremely agitated and restless, and kept pulling her BiPAP, hence she was placed on Precedex which is now at 1 mcg/kg/h. For her atrial fibrillation with RVR remains on Cardizem at 5 mg per hour. Patient remains on Zosyn she also remains on Lasix at 40 mg IV push every 8 hours. Chest x-ray is showing definite improvement. Follow-up ABG today on the BiPAP showed significant improvement compared to yesterday with improving oxygenation pO2 105 improving pCO2 down to 60 from 74 and improving pH from 7.22 to 7.34 liver enzymes are elevated but improving and malaise is elevated at 348 and lipase is 1070 chest x-ray is showing improvement in her interstitial edema but not fully resolved. The patient is seen today 02/01/2023 in follow-up in the intensive care unit. She is awake and alert in no acute distress. Sitting up in bed. She is curren tly off the BiPAP. She is maintaining good O2 saturations in the 90s on 4 L/m per nasal cannula. She is receiving normal saline at 20 ML's per hour. White count 14.7. Hemoglobin 7.6. Platelets 452. Sodium 135. Potassium 4.7. Bicarb 30. BUN 123. Creatinine 4.20. Glucose 107. Amylase 372. Lipase 593. She is currently in a -2.1 L balance. She remains on Lasix 60 mg every 8 hours. Continue bronchodilators and steroids. Anticoagulated with Eliquis. Antibiotics in the form of Zosyn. The patient is seen today 02/02/2023 in follow-up in the intensive care unit. She is sitting up in bed. Awake and alert in no acute distress. She is maintaining good O2 saturations in the 90s on 3 L/m per nasal cannula. She has normal saline at 20 ML's per hour. White count 12.9. Hemoglobin 8.1. Platelets 421. Sodium 135. Potassium 4.1. Bicarb 33. BUN 123. Creatinine 4.05. Glucose 142. Lipase 345. She is continued on bronchodilators and steroids. Anticoagulated with Eliquis. Antibiotics in the form of Zosyn. She remains on IV diuretics. Currently in a -1.7 L balance. The patient is seen today 02/03/2023 in follow-up in the intensive care unit. She has a regular medical floor overflow patient. She is currently sitting up in bed. Awake and alert in no acute distress. She is maintaining O2 saturation in the 90s on 3 L/m per nasal cannula. She remains quite weak. She is continued on DuoNeb inhalations, Pulmicort and performs inhalations, IV Solu- Medrol. She remains on antibiotics in the form of Zosyn. Anticoagulated with Eliquis. Remains on IV Lasix. Currently in a -1.3 L balance. Count 14.9. Hemoglobin 8.5. Platelets 413. Sodium 135. Potassium 4.4. Bicarb 36. BUN 118. Creatinine 3.74. Glucose 129. Lipase 267. The patient is seen today 02/04/2023 in follow-up in the intensive care unit. She is a regular medical floor overflow. She is resting comfortably in bed. Awake and alert in no acute distress. Maintaining good O2 saturations in the 90s on 2 L/m per nasal cannula. She does desaturate to 84% on room air. She has normal saline at 20 ML's per hour. She is continued on Lasix 60 mg IV every 12 hours. She remains on Symbicort and DuoNeb inhalations, prednisone taper. Anticoagulated with Eliquis. Remains on antibiotics in the form of Zosyn. She is currently in a -1.8 L balance. White count 19.0. Hemoglobin 8.8. Platelets 410. Sodium 136. Potassium 3.3. Bicarb 36. BUN 109. Creatinine 3.51. Glucose 143. Patient is seen today 02/05/2023 in follow-up in the intensive care unit. She is a regular medical floor overflow still. She is resting comfortably in bed. Awake and alert in no acute distress. Maintaining O2 saturations in the 90s on 2 L/m per nasal cannula. She remains on DuoNeb inhalations, Symbicort, prednisone taper. Anticoagulated with Eliquis. Continues on IV diuretics. Currently in a -1.5 L balance. White count 23.0. Hemoglobin 9.0. Platelets 374. Sodium 136. Potassium 3.7. Bicarb 37. BUN 104. Creatinine 2.73. Glucose 114. The patient is seen today 02/06/2023 in follow-up on the regular medical floor. She is sitting up in bed. Awake and alert in no acute distress. She is maintaining good O2 saturations in the 90s on 3 L/m per nasal cannula. No IV fluids. She is continued on Symbicort, DuoNeb inhalations, prednisone taper. She is on IV diuretics. Anticoagulated with Eliquis. Currently in a -1.6 L balance. White count 23.4. Hemoglobin 9.6. Platelets 320. Sodium 136. Potassium 3.4. Bicarb 39. BUN 91. Creatinine 2.48. Glucose 109. C-reactive protein 4.3. The patient is seen today 02/07/2023 in follow-up on the regular medical floor. She is resting comfortably in bed. Awake and alert in no acute distress. Maintaining O2 saturations in the 90s on 3 L/m per nasal cannula. She remains on DuoNeb inhalations, Symbicort, prednisone taper. Anticoagulated with Eliquis. Remains on oral diuretics. Continued on Diflucan. Computed tomography scan of the abdomen and pelvis revealed acute interstitial edematous pancreatitis. No organizing fluid collection at this time. The cultures revealed no growth. Blood sugar 109. Objective - Vital Signs Vital signs: Vital Signs Temp 98.5 F 02/07/23 01:38 Pulse 107 H 02/07/23 01:38 Resp 16 02/07/23 01:38 BP 154/93 02/07/23 01:38 Pulse Ox 98 02/07/23 01:38 FiO2 45 01/31/23 08:00 Intake & Output 02/06/23 02/07/23 02/07/23 18:59 06:59 18:59 Intake Total 540 600 Balance 540 600 Intake: Oral 540 600 Other: Voiding Method External Catheter Bedside Commode Diaper # Voids 2 2 # Bowel Movements 1 - Exam GENERAL EXAM: Alert, 67-year-old female, resting comfortably in bed, on 3 L nasal cannula, in no apparent distress. HEAD: Normocephalic. EYES: Normal reaction of pupils, equal size. NOSE: Clear with pink turbinates. THROAT: No erythema or exudates. NECK: No masses, no JVD. CHEST: No chest wall deformity. LUNGS: Equal air entry with bilateral end expiratory wheeze, few scattered rhonchi. CVS: S1 and S2 normal with no audible murmur, regular rhythm. ABDOMEN: No hepatosplenomegaly, normal bowel sounds, no guarding or rigidity. SPINE: No scoliosis or deformity SKIN: No rashes CENTRAL NERVOUS SYSTEM: No focal deficits, tone is normal in all 4 extremities. EXTREMITIES: There is no peripheral edema. No clubbing, no cyanosis. Peripheral pulses are intact. - Labs CBC & Chem 7: 02/06/23 04:53 02/06/23 04:53 Labs: Abnormal Lab Results - Last 24 Hours (Table) 02/06/23 02/06/23 02/06/23 Range/Units 13:02 17:52 20:48 POC Glucose (mg/dL) 135 H 205 H 197 H (70-110) mg/dL Microbiology - Last 24 Hours (Table) 02/05/23 09:06 Blood Culture - Preliminary Blood Assessment and Plan Assessment: Altered mental status secondary to hypercapnic respiratory failure secondary to possible extra Klonopin use as well as an acute exacerbation of diastolic congestive heart failure Acute hypoxemic and hypercapnic respiratory failure secondary to above improved and on 3 L cannula Metabolic encephalopathy secondary to above, elevated ammonia level, recovered Leukocytosis Anemia Acute kidney injury, current creatinine 2.48 Hyperkalemia Acute transaminitis trending down Acute pancreatitis, lipase improved and at 267. Computed tomography scan of the abdomen and pelvis revealed acute interstitial edematous pancreatitis. No organizing fluid collection at this time. Troponin leak Urine drug screen is positive for opiates, oxycodone and tricyclic antidepressa nts History of fibromyalgia History of anxiety/depression/panic disorder Hyperlipidemia Hypertension Memory impairment Chronic and ongoing tobacco dependence Chronic atrial fibrillation anticoagulant with Eliquis Plan: The patient was seen and evaluated Computed tomography scan of the abdomen and pelvis, labs and medications reviewed Currently stable from the pulmonary/critical care standpoint Titrate down the FiO2 as tolerated Increase her activity as tolerated We will continue to follow This patient was see independently by the nurse practitioner I have personally seen and examined the patient, performed the documentation and the assessment and plan as written. Number of minutes spent on the visit: 24.
[2023-02-07] MEDS: APIXABAN 2.5 MG TABLET PO SCH ×2 (08:36→20:46)
[2023-02-07] MEDS: INSULIN ASPART (NovoLOG) 100 UNIT/ML VIAL SQ SCH ×4 (09:09→20:37)
[2023-02-07 09:11] LABS: Glucose,Whole Blood 113 mg/dL (70-110)
[2023-02-07 11:05] LABS: African American GFR (CKD) 28 (>60 ml/min/1.73 sqM); Anion Gap 5 mmol/L; Blood Urea Nitrogen 74 mg/dL (7-17); Calcium 9.3 mg/dL (8.4-10.2); Carbon Dioxide 38 mmol/L (22-30); Chloride 95 mmol/L (98-107); Glucose 182 mg/dL (74-99); Non-African American GFR(CKD) 24 (>60 ml/min/1.73 sqM); Sodium 138 mmol/L (137-145)
--- NOTE | 2023-02-07 12:20 | P.PN ---
Subjective Patient is seen for follow-up for acute kidney injury and hyperkalemia. She is currently being diuresed. renal function continues to improve. No complaints today. On a bedside commode this morning Objective - Vital Signs Vital signs: Vital Signs Temp 98.1 F 02/07/23 09:05 Pulse 118 H 02/07/23 09:05 Resp 18 02/07/23 09:05 BP 123/79 02/07/23 09:05 Pulse Ox 92 L 02/07/23 09:11 FiO2 45 01/31/23 08:00 Intake & Output 02/06/23 02/07/23 02/07/23 18:59 06:59 18:59 Intake Total 540 600 Balance 540 600 Intake: Oral 540 600 Other: Voiding Method External Catheter Bedside Commode Diaper # Voids 2 2 1 # Bowel Movements 1 1 - Exam Patient is awake, comfortable. Alert oriented 3 2+ edema in the legs [employer] exam grossly intact - Labs CBC & Chem 7: 02/06/23 04:53 02/07/23 10:33 Labs: Abnormal Lab Results - Last 24 Hours (Table) 02/06/23 02/06/23 02/06/23 Range/Units 13:02 17:52 20:48 Chloride (98-107) mmol/L Carbon Dioxide (22-30) mmol/L BUN (7-17) mg/dL Creatinine (0.52-1.04) mg/dL Glucose (74-99) mg/dL POC Glucose (mg/dL) 135 H 205 H 197 H (70-110) mg/dL 02/07/23 02/07/23 Range/Units 09:09 10:33 Chloride 95 L (98-107) mmol/L Carbon Dioxide 38 H (22-30) mmol/L BUN 74 H (7-17) mg/dL Creatinine 2.08 H (0.52-1.04) mg/dL Glucose 182 H (74-99) mg/dL POC Glucose (mg/dL) 113 H (70-110) mg/dL Microbiology - Last 24 Hours (Table) 02/05/23 09:06 Blood Culture - Preliminary Blood Assessment and Plan Assessment: 1. Acute kidney injury mostly ATN from hypotension. UA is completely benign. No evidence of hydronephrosis on abdominal CT. previous creatinine 1.0 on 08/14/2021. Renal function continues to improve 2. Mental status changes secondary to hypercapnic respiratory failure, resolved 3. Respiratory acidosis and hypercapnic respiratory failure, improved 4. Hyperkalemia associated with acute kidney injury, improved 5. Anemia with severe iron deficiency. No active bleeding noted. Status post IV iron 6. Hyponatremia, hypervolemic, improved 7. Hypervolemia/volume overload 8. Colonic dilatation, ileus 9. Acute pancreatitis, currently tolerating oral intake 10. Shock liver, improving Plan: Continue with diuretics. Lasix changed to oral. Can resume Aldactone Avoid nephrotoxic agents
[2023-02-07 12:32] LABS: Glucose,Whole Blood 137 mg/dL (70-110)
--- NOTE | 2023-02-07 15:13 | P.PN ---
Subjective Progress Note Date: 02/07/23 Principal diagnosis: Leukocytosis Patient is a 67-year-old female presenting to the hospital on 01/28/2023 for evaluation of drowsiness confusion patient has been diagnosed with acute hypercapnic respiratory failure with COPD exacerbation, and also have mildly elevated lipase concerning for mild pancreatitis, patient was noticed to have worsening of the white count prompting this infectious disease consultation. On today's evaluation that is 02/07/2023, the patient remains to be afebrile, the patient is breathing comfortably on 1.5 L nasal cannula supplemental oxygen , the patient denies chest pain or cough, patient denies nausea/vomiting or abdominal pain, however is complaining of significant diarrhea with multiple loose stools Patient did have a white count of 23.4 as of yesterday no CBC was done today creatinine is 2.08 CRP is 4.3 blood cultures currently pending. Objective - Vital Signs Vital signs: Vital Signs Temp 97.6 F 02/07/23 12:29 Pulse 120 H 02/07/23 12:29 Resp 18 02/07/23 12:29 BP 138/84 02/07/23 12:29 Pulse Ox 92 L 02/07/23 12:29 FiO2 45 01/31/23 08:00 Intake & Output 02/06/23 02/07/23 02/07/23 18:59 06:59 18:59 Intake Total 540 600 Balance 540 600 Intake: Oral 540 600 Other: Voiding Method External Catheter Bedside Commode Bedside Commode Diaper Diaper # Voids 2 2 1 # Bowel Movements 1 1 - Exam GENERAL DESCRIPTION: An elderly female lying in bed in no distress RESPIRATORY SYSTEM: Unlabored breathing , decreased breath sounds at bases HEART: S1 S2 regular rate and rhythm , ABDOMEN: Soft , no tenderness EXTREMITIES: No edema feet - Labs CBC & Chem 7: 02/06/23 04:53 02/07/23 10:33 Labs: Abnormal Lab Results - Last 24 Hours (Table) 02/06/23 02/06/23 02/07/23 Range/Units 17:52 20:48 09:09 Chloride (98-107) mmol/L Carbon Dioxide (22-30) mmol/L BUN (7-17) mg/dL Creatinine (0.52-1.04) mg/dL Glucose (74-99) mg/dL POC Glucose (mg/dL) 205 H 197 H 113 H (70-110) mg/dL 02/07/23 02/07/23 Range/Units 10:33 12:31 Chloride 95 L (98-107) mmol/L Carbon Dioxide 38 H (22-30) mmol/L BUN 74 H (7-17) mg/dL Creatinine 2.08 H (0.52-1.04) mg/dL Glucose 182 H (74-99) mg/dL POC Glucose (mg/dL) 137 H (70-110) mg/dL Microbiology - Last 24 Hours (Table) 02/05/23 09:06 Blood Culture - Preliminary Blood Assessment and Plan (1) Leukocytosis Current Visit: Yes Status: Acute Code(s): D72.829 - ELEVATED WHITE BLOOD CELL COUNT, UNSPECIFIED SNOMED Code(s): 185035307 (2) Diarrhea Current Visit: Yes Status: Acute Code(s): R19.7 - DIARRHEA, UNSPECIFIED SNOMED Code(s): 71562830 Plan: 1patient with elevated white count and this patient has been in the hospital for almost 8 days with initial presentation for weakness was diagnosed with COPD exacerbation also mild pancreatitis on the basis of CT and elevated amylase and lipase patient did have admission improvement in her white count though over the last 3 days her white count has been trending up however the patient has been afebrile denies any bone pain no tenderness was noticed chest x-ray negative for pneumonia no urinary symptoms no problem with the peripheral IV sites 2patient did have a persistent elevated white count, patient did have CT of abdominal pelvis with evidence of pancreatitis and pseudocyst. 3patient has developed diarrhea and was exposed to antibiotics we will check a stool for C. diff and treat if positive add Questran for symptomatic relief repeat a CBC with a.m. lab Dictation was produced using [email or web address] dictation software. please excuse any grammatical, word or spelling errors. Time with Patient: Less than 30
[2023-02-07] MEDS: ACETAMINOPHEN TAB 325 MG TAB PO PRN ×2 (16:29→20:46)
[2023-02-07] MEDS: CHOLESTYRAMINE (WITH SUGAR) 4 GM PACKET PO SCH (16:30)
[2023-02-07 17:13] LABS: Glucose,Whole Blood 201 mg/dL (70-110)
--- NOTE | 2023-02-07 19:55 | P.PN ---
Subjective Progress Note Date: 02/07/23 SUBJECTIVE: Patient is stable from cardiac vessel standpoint. She is having good diuresis with IV Lasix 60 mg twice a day. Her lower swelling has improved significantly. She is tolerating oral diet. Rate controlled atrial fibrillation on telemetry BP 134/93, pulse 94 Creatinine 2.4. Improved from yesterday 2.7 Hemoglobin stable around 9 PHYSICAL EXAMINATION Vital signs reviewed. Head: Normocephalic. Eyes: Sclerae nonicteric. Neck: Brisk carotid upstroke, no jugular venous distention. Lungs: Clear to auscultation. Heart: Irregularly irregular S1-S2, no S3, no murmur or rub. Abdomen: Soft nontender, Extremities: 1+ pitting edema in bilateral LE, erythema on shins No focal neurological deficit ASSESSMENT Acute hypoxic and hypercapnic respiratory failure Heart failure with preserved ejection fraction, mild volume overload Chronic persistent atrial fibrillation Pancreatitis LIAM nonoliguric improving Acute COPD exacerbation PLAN Would recommend changing Lasix to by mouth 60 mg twice a day Continue metoprolol succinate 100 mg 2 times daily and Eliquis Add Faxiga 10mg follow renal function Objective - Vital Signs Vital signs: Vital Signs Temp 98 F 02/07/23 19:25 Pulse 103 H 02/07/23 19:25 Resp 20 02/07/23 19:25 BP 157/91 02/07/23 19:25 Pulse Ox 96 02/07/23 19:25 FiO2 45 01/31/23 08:00 Intake & Output 02/07/23 02/07/23 02/08/23 06:59 18:59 06:59 Intake Total 600 Balance 600 Intake: Oral 600 Other: Voiding Method Bedside Commode Bedside Commode Diaper Diaper # Voids 2 1 # Bowel Movements 1 1 - Labs CBC & Chem 7: 02/06/23 04:53 02/07/23 10:33 Labs: Abnormal Lab Results - Last 24 Hours (Table) 02/06/23 02/07/23 02/07/23 Range/Units 20:48 09:09 10:33 Chloride 95 L (98-107) mmol/L Carbon Dioxide 38 H (22-30) mmol/L BUN 74 H (7-17) mg/dL Creatinine 2.08 H (0.52-1.04) mg/dL Glucose 182 H (74-99) mg/dL POC Glucose (mg/dL) 197 H 113 H (70-110) mg/dL 02/07/23 02/07/23 Range/Units 12:31 17:08 Chloride (98-107) mmol/L Carbon Dioxide (22-30) mmol/L BUN (7-17) mg/dL Creatinine (0.52-1.04) mg/dL Glucose (74-99) mg/dL POC Glucose (mg/dL) 137 H 201 H (70-110) mg/dL Microbiology - Last 24 Hours (Table) 02/05/23 09:06 Blood Culture - Preliminary Blood
[2023-02-07 20:50] LABS: Glucose,Whole Blood 141 mg/dL (70-110)
--- NOTE | 2023-02-07 21:30 | P.PN ---
Subjective Progress Note Date: 02/07/23 Patient continues to be closely monitored in the intensive care unit. Remains on IV Lasix 60 mg every 12 hours patient has diuresed over 3.2 L in the last 24 hours. Discontinue significant lower extremity edema patient states that this is improving. Nephrology following closely patient's BUN today is 23, creatinine 4.05 no decision yet whether patient will begin renal replacement therapy or not. Lipase is improved today down to 345. Additionally the white count is improved to 12.9. Hemoglobin stable at 8.1 no signs of acute bleeding. Patient additionally continues on IV Solu-Medrol high-dose for the acute COPD exacerbation remains on 5 L of oxygen there is a discrepancy whether patient actually uses home oxygen or not. It is documented in the medical records the patient is on 2 L of home oxygen however when asked patient does deny and states that she has never worn oxygen at home even for short period of time. Patient has had 3 loose bowel movements today, would recommend to change lactulose to as needed titration and to be given until patient has 2-3 bowel movements per day. Most recent ammonia level has normalized and currently 14. Patient continues on IV Zosyn empirically. She remains in atrial fibrillation with rapid ventricular rate in the low 100s. Patient has not gotten up out of bed physical therapy is consulted likely patient will require subacute rehab on discharge. Patient was under the impression that she was being discharged home today. 02/03/2023 Patient remains in the intensive care unit. Mentation improving. PT/OT has been consulted and recommend subacute rehab on discharge. Patient remains on IV lasix the dose was cut back yesterday the creatinine has improved today at 3.74. BUN 118. Lipase has normalized. Patient is tolerating diet. Remains on IV zosyn. And on oral prednisone. Metoprolol was increased to TID and heart rate is slowly coming down. 02/04/2023 Patient remains in intensive care unit she has been downgraded to a medical surgical bed with telemetry monitoring she is pending a bed placement. She is currently alert 3 working physical therapy sitting up in the chair today. Diet as upgraded with no further complaints of abdominal pain. Her lipase is normalized. Metoprolol was increased and heart rate is now resting between 100 and 103. Chest x-ray this morning shows pulmonary venous congestion and cardiomegaly persisting although her to improve there is a suspected small left- sided subpulmonic effusion. White count is 19.0. Hemoglobin stable at 8.8. Sodium of 136, potassium 3.3., BUN 109, creatinine 3.51. 02/05/2023 Patient is evaluated today remains in ICU as a med surg hold. Patient remains on oxygen. No shortness of breath. She has been working with PT was up in the chair yesterday. Lower extremity edema is slightly better she has compression stockings on and remains on IV lasix at 60 mg Q12h. Patient apparently has some excoriation in her buttock and possibly a stage 2 ulcer on her buttock as well. Patient states the nursing staff put barrier cream on for her. White count today up to 23.0, hemoglobin 9.0. Sodium 136, potassium 3.7. Creatinine 2.73. 02/06/2023 Patient is evaluated today on a medical floor. She reports no shortness of breath she remains on 2 L of oxygen and she does her 2 L as needed at home. She is working physical therapy however she needs encouragement to be up in the larissa r for meals and also to use the bedside commode. Patient has not wanted to take her IV Lasix this morning as it does make her urinate frequently. She remains on 60 mg every 12 hours of IV Lasix. White count remains elevated at 23.4 patient was started on oral Diflucan and will be considered for an abdominal pelvis CT. Her creatinine continues to improve today it is 2.48. 02/07/2023 Patient is evaluated today on the medical floor. Patient remains on IV lasix 60 mg Q12h. Had multiple episodes of diarrhea overnight, noted that patient was getting lactulose for elevated ammonia level. C.Dif ordered and pending. Creatinine continues to improve. Patient needs encouragement to get up out of be d and to sit up in the chair for meals. Blood culture remains negative. Review of Systems Constitutional: Reports fatigue denied any fever. Cardio vascular: denied any chest pain, palpitations Gastrointestinal: denied any nausea, vomiting. Reports diarrhea. Pulmonary: Denied any shortness of breath cough Neurologic denied any new focal deficits Reports significant weakness, All inpatient medications were reviewed and appropriate changes in these medications as dictated in the interval history and assessment and plan. PHYSICAL EXAMINATION: GENERAL: The patient is alert and oriented x2-3 patient thought she was at [facility], not in any acute distress. Well developed, well nourished. Obese. On 5L of oxygen via nasal cannula. HEENT: Pupils are round and equally reacting to light. EOMI. No scleral icterus. No conjunctival pallor. Normocephalic, atraumatic. No pharyngeal erythema. No thyromegaly. CARDIOVASCULAR: S1 and S2 present. No murmurs, rubs, or gallops. PULMONARY: Chest is clear to auscultation, no wheezing or crackles. ABDOMEN: Soft, nontender, nondistended, normoactive bowel sounds. No palpable organomegaly. MUSCULOSKELETAL: No joint swelling or deformity. EXTREMITIES: No cyanosis, clubbing, or pedal edema. +1 lower extremity pitting edema NEUROLOGICAL: Gross neurological examination did not reveal any focal deficits. Diffuse generalized weakness. SKIN: No rashes. Assessment Acute hypoxemic hypercapnic respiratory failure secondary to acute COPD exacer bation currently 2 L of oxygen she required BiPAP with an FiO2 of 45% on admission. After mental status secondary to acute metabolic and toxic encephalopathy secondary to acute renal injury and hypercapnia currently improved and alert 3 Mild acute pancreatitis per her CT scan lipase has normalized. Acute renal failure with hyperkalemia due to ATN and hypotension Hypokalemia due to diuresis. Acute diastolic heart failure with moderate pulmonary hypertension Chronic hypoxic respiratory failure on 2L as needed at home per patient she is unsure why. Diabetes Mellitus type 2 with hemoglobin A1C 6.6. Transamnitis likely due to volume overload; improving. Chronic Atrial fibrillation with rapid ventricular rate HR in the 100s. Anemia, microcytic iron deficiency on IV ferrlecit Possible colitis with ileus History of CVA/TIA Hypertension Hyperlipidemia History of memory impairment Chronic neck and back pain status post cervical fusion surgery. Stage II right buttock ulceration hospital-acquired Anxiety depression and panic disorder, not in active tissue GI prophylaxis on protonix BID DVT prophylaxis on eliquis 2.5 BID renal dosing Full Code Plan Diet upgraded to regular patient is tolerating White count up to 23. ID following and recommending to check C.Dif Abdominal pelvis CT shows evidence of pseudocyst and pancreatitis, which is a change from prior CT. Follow up with general surgery. GI services not available. Remains on IV lasix, metoprolol was increased Ferrlecit has been stopped, patient has been started on aranesp Patient is encouragement to get up out of bed and ambulate as well as up in the chair for meals Patient will require OLIMPIA on discharge Repeat labs in AM. The impression and plan of care has been dictated by Elidia Llanes, Nurse Practitioner as directed. Dr. Taisha MD I have performed a history and physical examination and medical decision making of this patient, discussed the same with the dictator, and agree with the dictators assessment and plan as written, documented as a scribe. Based on total visit time, I have performed more than 50% of this visit. Objective - Vital Signs Vital signs: Vital Signs Temp 98 F 02/07/23 19:25 Pulse 103 H 02/07/23 19:25 Resp 20 02/07/23 19:25 BP 157/91 02/07/23 19:25 Pulse Ox 96 02/07/23 19:25 FiO2 45 01/31/23 08:00 Intake & Output 02/07/23 02/07/23 02/08/23 06:59 18:59 06:59 Intake Total 600 Balance 600 Intake: Oral 600 Other: Voiding Method Bedside Commode Bedside Commode Diaper Diaper # Voids 2 1 # Bowel Movements 1 1 - Labs CBC & Chem 7: 02/06/23 04:53 02/07/23 10:33 Labs: Abnormal Lab Results - Last 24 Hours (Table) 02/07/23 02/07/23 02/07/23 Range/Units 09:09 10:33 12:31 Chloride 95 L (98-107) mmol/L Carbon Dioxide 38 H (22-30) mmol/L BUN 74 H (7-17) mg/dL Creatinine 2.08 H (0.52-1.04) mg/dL Glucose 182 H (74-99) mg/dL POC Glucose (mg/dL) 113 H 137 H (70-110) mg/dL 02/07/23 02/07/23 Range/Units 17:08 20:37 Chloride (98-107) mmol/L Carbon Dioxide (22-30) mmol/L BUN (7-17) mg/dL Creatinine (0.52-1.04) mg/dL Glucose (74-99) mg/dL POC Glucose (mg/dL) 201 H 141 H (70-110) mg/dL Microbiology - Last 24 Hours (Table) 02/05/23 09:06 Blood Culture - Preliminary Blood Assessment and Plan Time with Patient: Less than 30
[2023-02-08] MEDS: ACETAMINOPHEN TAB 325 MG TAB PO PRN ×4 (02:05→21:15)
[2023-02-08 07:40] LABS: Glucose,Whole Blood 121 mg/dL (70-110)
[2023-02-08] MEDS: INSULIN ASPART (NovoLOG) 100 UNIT/ML VIAL SQ SCH ×4 (07:49→21:12)
[2023-02-08] MEDS: IPRATROPIUM-ALBUTEROL 3 ML NEB INHALATION SCH ×4 (08:19→18:18)
[2023-02-08] MEDS: SYMBICORT 160-4.5 MCG INHALER INHALATION SCH ×2 (08:19→18:33)
[2023-02-08] MEDS: LACTULOSE 20 GM/30 ML CUP PO SCH (09:02)
[2023-02-08] MEDS: CHOLESTYRAMINE (WITH SUGAR) 4 GM PACKET PO SCH ×3 (09:02→18:15)
[2023-02-08] MEDS: SPIRONOLACTONE 25 MG TAB PO SCH (09:07)
[2023-02-08] MEDS: predniSONE 10 MG TAB PO SCH (09:07)
[2023-02-08] MEDS: LORATADINE 10 MG TAB PO SCH (09:07)
[2023-02-08] MEDS: APIXABAN 2.5 MG TABLET PO SCH ×2 (09:07→21:12)
[2023-02-08] MEDS: PANTOPRAZOLE 40 MG/10 ML VIAL IVP SCH ×2 (09:07→21:12)
[2023-02-08] MEDS: FUROSEMIDE 20 MG TAB PO SCH ×2 (09:07→16:49)
[2023-02-08] MEDS: METOPROLOL SUCCINATE (ER) 100 MG TAB.ER.24H PO SCH ×2 (09:07→21:11)
[2023-02-08] MEDS: DULoxetine HCL 60 MG CAPSULE.DR PO SCH (09:07)
[2023-02-08] MEDS: DAPAGLIFLOZIN PROPANEDIOL 10 MG TABLET PO SCH (09:08)
[2023-02-08] MEDS: FLUCONAZOLE 100 MG TAB PO SCH (09:08)
[2023-02-08 10:24] LABS: Anisocytosis (M) 2+; Basophils # (A) 0.03 X 10*3/uL (0.00-0.10); Basophils % (A) 0.1 %; Eosinophils # (A) 0.07 X 10*3/uL (0.04-0.35); Eosinophils % (A) 0.3 %; HCT 31.4 % (37.2-46.3); HGB 8.4 d/dL (12.0-15.0); Hypochromasia (M) 2+; Lymphocytes # (A) 1.17 X 10*3/uL (0.90-5.00); Lymphocytes % (A) 4.5 %; MCH 20.5 pg (27.0-32.0); MCHC 26.8 d/dL (32.0-37.0); MCV 76.8 FL (80.0-97.0); Mean Platelet Volume 11.3 FL (9.5-12.2); Microcytosis (M) 2+; Monocytes # (A) 1.46 X 10*3/uL (0.20-1.00); Monocytes % (A) 5.7 %; NRBC Per 100 WBC 0 X 10*3/uL (0.00-0.01); Neutrophils # (A) 22.86 X 10*3/uL (1.80-7.70); Neutrophils % (A) 88.7 %; Platelet Count 228 X 10*3/uL (140-440); RBC 4.09 X 10*6/uL (4.10-5.20); RDW 24.7 % (11.5-14.5); WBC 25.77 X 10*3/uL (4.50-10.00)
[2023-02-08] MEDS ORDERED: METOPROLOL SUCCINATE (ER) 25 MG TAB.ER.24H PO STA (11:12)
[2023-02-08 11:47] LABS: African American GFR (CKD) 31 (>60 ml/min/1.73 sqM); Anion Gap 8 mmol/L; Blood Urea Nitrogen 60 mg/dL (7-17); Calcium 9.3 mg/dL (8.4-10.2); Carbon Dioxide 34 mmol/L (22-30); Chloride 95 mmol/L (98-107); Glucose 115 mg/dL (74-99); Non-African American GFR(CKD) 27 (>60 ml/min/1.73 sqM); Potassium 3.5 mmol/L (3.5-5.1); Sodium 137 mmol/L (137-145)
[2023-02-08] MEDS: AMIODARONE 100 MG TAB PO SCH (11:54)
--- NOTE | 2023-02-08 12:08 | P.PN ---
Subjective HISTORY OF PRESENT ILLNESS: 02/07/2023 Patient is stable from cardiac vessel standpoint. She is having good diuresis with IV Lasix 60 mg twice a day. Her lower swelling has improved significantly. She is tolerating oral diet. Rate controlled atrial fibrillation on telemetry 02/08/2023 Patient examined this morning. She is sitting in the chair. She denies chest pain or pressure. Denies SOB. Remains on oral lasix. BMP from this morning is currently pending. Patient is currently not on telemetry. Documented heart rates 100-120. Blood pressure stable. PHYSICAL EXAM: VITAL SIGNS: Reviewed. GENERAL: Well-developed in no acute distress. NECK: Supple. No JVD or thyromegaly LUNGS: Respirations even and unlabored. Lungs with crackles on left and rhonchi on the right. HEART: Irregular rate and rhythm. S1 and S2 heard. EXTREMITIES: Normal range of motion. No clubbing or cyanosis. Peripheral pulses intact. Bilateral lower extremity edema present. ASSESSMENT: Acute hypoxic and hypercapnic respiratory failure Acute COPD exacerbation Leukocytosis Acute heart failure with preserved ejection fraction Permanent atrial fibrillation Pancreatitis with pseudocyst Acute kidney injury Former nicotine dependence PLAN: Resume amiodarone 100 mg daily Increase metoprolol to 150 mg twice a day Begin telemetry monitoring Obtain chest x-ray Continue oral diuretics. Await kidney function from this morning Will consider right-sided heart catheterization Further recommendations pending patient's course Nurse practitioner note has been reviewed by physician. Signing provider agrees with the documented findings, assessment, and plan of care. Case discussed with infectious disease physician. Patient has significant leukocytosis which is most likely due to pancreatic pseudocyst as per Dr. Humphrey. We will increase metoprolol for better heart rate control, start back amiodarone, continue by mouth diuretics. Her echo showed significant right ventricular dilatation and concerns of possible increased pulmonary pressures. She would benefit from an outpatient right heart catheterization once her leukocytosis and metabolic encephalopathy resolves Dr Blackwood Objective - Vital Signs Vital signs: Vital Signs Temp 98.0 F 02/08/23 07:26 Pulse 120 H 02/08/23 07:26 Resp 18 02/08/23 07:26 BP 159/88 02/08/23 07:26 Pulse Ox 100 02/08/23 07:26 FiO2 45 01/31/23 08:00 Intake & Output 02/07/23 02/08/2323 18:59 06:59 18:59 Intake Total 350 Balance 350 Intake: Oral 350 Other: Voiding Method Bedside Commode Bedside Commode Diaper Diaper # Voids 1 1 # Bowel Movements 1 - Labs CBC & Chem 7: 02/08/23 05:26 02/08/23 05:26 Labs: Abnormal Lab Results - Last 24 Hours (Table) 02/07/23 02/07/23 02/07/23 Range/Units 09:09 10:33 12:31 Chloride 95 L (98-107) mmol/L Carbon Dioxide 38 H (22-30) mmol/L BUN 74 H (7-17) mg/dL Creatinine 2.08 H (0.52-1.04) mg/dL Glucose 182 H (74-99) mg/dL POC Glucose (mg/dL) 113 H 137 H (70-110) mg/dL 02/07/23 02/07/23 02/08/23 Range/Units 17:08 20:37 07:36 Chloride (98-107) mmol/L Carbon Dioxide (22-30) mmol/L BUN (7-17) mg/dL Creatinine (0.52-1.04) mg/dL Glucose (74-99) mg/dL POC Glucose (mg/dL) 201 H 141 H 121 H (70-110) mg/dL Microbiology - Last 24 Hours (Table) 02/05/23 09:06 Blood Culture - Preliminary Blood
--- NOTE | 2023-02-08 12:27 | P.PN ---
Subjective Patient is seen for follow-up for acute kidney injury and hyperkalemia. She is currently being diuresed. renal function continues to improve. No complaints today. Objective - Vital Signs Vital signs: Vital Signs Temp 98.3 F 02/08/23 11:25 Pulse 104 H 02/08/23 11:25 Resp 16 02/08/23 11:25 BP 149/85 02/08/23 11:25 Pulse Ox 98 02/08/23 11:25 FiO2 45 01/31/23 08:00 Intake & Output 02/07/23 02/08/23 02/08/23 18:59 06:59 18:59 Intake Total 350 Balance 350 Intake: Oral 350 Other: Voiding Method Bedside Commode Bedside Commode Bedside Commode Diaper Diaper # Voids 1 1 # Bowel Movements 1 - Exam Patient is awake, comfortable. Alert oriented 3 Lungs are clear CVS S1 and S2 Abdomen is soft, nontender 1+ edema in the legs [employer] exam grossly intact - Labs CBC & Chem 7: 02/08/23 05:26 02/08/23 05:26 Labs: Abnormal Lab Results - Last 24 Hours (Table) 02/07/23 02/07/23 02/07/23 Range/Units 12:31 17:08 20:37 WBC (4.50-10.00) X 10*3/uL RBC (4.10-5.20) X 10*6/uL Hgb (12.0-15.0) d/dL Hct (37.2-46.3) % MCV (80.0-97.0) FL MCH (27.0-32.0) pg MCHC (32.0-37.0) d/dL RDW (11.5-14.5) % Neutrophils # (1.80-7.70) X 10*3/uL Monocytes # (0.20-1.00) X 10*3/uL Hypochromasia (manual) Anisocytosis (manual) Microcytosis (manual) Chloride (98-107) mmol/L Carbon Dioxide (22-30) mmol/L BUN (7-17) mg/dL Creatinine (0.52-1.04) mg/dL Glucose (74-99) mg/dL POC Glucose (mg/dL) 137 H 201 H 141 H (70-110) mg/dL C-Reactive Protein (0.00-0.80) mg/dL 02/08/23 02/08/23 02/08/23 Range/Units 05:26 05:26 05:26 WBC 25.77 H (4.50-10.00) X 10*3/uL RBC 4.09 L (4.10-5.20) X 10*6/uL Hgb 8.4 L (12.0-15.0) d/dL Hct 31.4 L (37.2-46.3) % MCV 76.8 L (80.0-97.0) FL MCH 20.5 L (27.0-32.0) pg MCHC 26.8 L (32.0-37.0) d/dL RDW 24.7 H (11.5-14.5) % Neutrophils # 22.86 H (1.80-7.70) X 10*3/uL Monocytes # 1.46 H (0.20-1.00) X 10*3/uL Hypochromasia (manual) 2+ A Anisocytosis (manual) 2+ A Microcytosis (manual) 2+ A Chloride 95 L (98-107) mmol/L Carbon Dioxide 34 H (22-30) mmol/L BUN 60 H (7-17) mg/dL Creatinine 1.91 H (0.52-1.04) mg/dL Glucose 115 H (74-99) mg/dL POC Glucose (mg/dL) (70-110) mg/dL C-Reactive Protein 3.90 H (0.00-0.80) mg/dL 02/08/23 Range/Units 07:36 WBC (4.50-10.00) X 10*3/uL RBC (4.10-5.20) X 10*6/uL Hgb (12.0-15.0) d/dL Hct (37.2-46.3) % MCV (80.0-97.0) FL MCH (27.0-32.0) pg MCHC (32.0-37.0) d/dL RDW (11.5-14.5) % Neutrophils # (1.80-7.70) X 10*3/uL Monocytes # (0.20-1.00) X 10*3/uL Hypochromasia (manual) Anisocytosis (manual) Microcytosis (manual) Chloride (98-107) mmol/L Carbon Dioxide (22-30) mmol/L BUN (7-17) mg/dL Creatinine (0.52-1.04) mg/dL Glucose (74-99) mg/dL POC Glucose (mg/dL) 121 H (70-110) mg/dL C-Reactive Protein (0.00-0.80) mg/dL Microbiology - Last 24 Hours (Table) 02/05/23 09:06 Blood Culture - Preliminary Blood Assessment and Plan Assessment: 1. Acute kidney injury mostly ATN from hypotension. UA is completely benign. No evidence of hydronephrosis on abdominal CT. previous creatinine 1.0 on 08/14/2021. Renal function continues to improve 2. Mental status changes secondary to hypercapnic respiratory failure, resolved 3. Respiratory acidosis and hypercapnic respiratory failure, improved 4. Hyperkalemia associated with acute kidney injury, improved 5. Anemia with severe iron deficiency. No active bleeding noted. Status post IV iron 6. Hyponatremia, hypervolemic, improved 7. Hypervolemia/volume overload 8. Colonic dilatation, ileus 9. Acute pancreatitis, currently tolerating oral intake 10. Shock liver, improving Plan: Continue with diuretics. Lasix changed to oral. Continue Aldactone Avoid nephrotoxic agents
[2023-02-08 12:29] LABS: Glucose,Whole Blood 154 mg/dL (70-110)
--- NOTE | 2023-02-08 14:18 | XR ---
EXAMINATION TYPE: XR chest 2V DATE OF EXAM: 02/08/2023 1:20 PM CLINICAL INDICATION:Female, 67 years old with history of SOB, elevated WBC,; [facility] COMPARISON: Chest radiographs from 02/04/2023 TECHNIQUE: XR chest 2V Frontal and lateral views of the chest. FINDINGS: Lungs/Pleura: Prominent interstitial lung markings are seen scattered throughout the lungs. No eviden ce of focal consolidation, pneumothorax or pleural effusion. Pulmonary vascularity: Unremarkable. Heart/mediastinum: Cardiomediastinal silhouette is enlarged and stable. Musculoskeletal: No acute osseous pathology. IMPRESSION: 1. No acute cardiopulmonary disease/process. 2. Cardiomegaly 3. COPD.
--- NOTE | 2023-02-08 15:36 | P.PN ---
Subjective Progress Note Date: 02/08/23 Patient continues to be closely monitored in the intensive care unit. Remains on IV Lasix 60 mg every 12 hours patient has diuresed over 3.2 L in the last 24 hours. Discontinue significant lower extremity edema patient states that this is improving. Nephrology following closely patient's BUN today is 23, creatinine 4.05 no decision yet whether patient will begin renal replacement therapy or not. Lipase is improved today down to 345. Additionally the white count is improved to 12.9. Hemoglobin stable at 8.1 no signs of acute bleeding. Patient additionally continues on IV Solu-Medrol high-dose for the acute COPD exacerbation remains on 5 L of oxygen there is a discrepancy whether patient ac tually uses home oxygen or not. It is documented in the medical records the patient is on 2 L of home oxygen however when asked patient does deny and states that she has never worn oxygen at home even for short period of time. Patient has had 3 loose bowel movements today, would recommend to change lactulose to as needed titration and to be given until patient has 2-3 bowel movements per day. Most recent ammonia level has normalized and currently 14. Patient continues on IV Zosyn empirically. She remains in atrial fibrillation with rapid ventricular rate in the low 100s. Patient has not gotten up out of bed physical therapy is consulted likely patient will require subacute rehab on discharge. Patient was under the impression that she was being discharged home today. 02/03/2023 Patient remains in the intensive care unit. Mentation improving. PT/OT has been consulted and recommend subacute rehab on discharge. Patient remains on IV lasix the dose was cut back yesterday the creatinine has improved today at 3.74. BUN 118. Lipase has normalized. Patient is tolerating diet. Remains on IV zosyn. And on oral prednisone. Metoprolol was increased to TID and heart rate is slowly coming down. 02/04/2023 Patient remains in intensive care unit she has been downgraded to a medical surgical bed with telemetry monitoring she is pending a bed placement. She is currently alert 3 working physical therapy sitting up in the chair today. Diet as upgraded with no further complaints of abdominal pain. Her lipase is normalized. Metoprolol was increased and heart rate is now resting between 100 and 103. Chest x-ray this morning shows pulmonary venous congestion and cardiomegaly persisting although her to improve there is a suspected small left- sided subpulmonic effusion. White count is 19.0. Hemoglobin stable at 8.8. Sodium of 136, potassium 3.3., BUN 109, creatinine 3.51. 02/05/2023 Patient is evaluated today remains in ICU as a med surg hold. Patient remains on oxygen. No shortness of breath. She has been working with PT was up in the chair yesterday. Lower extremity edema is slightly better she has compression stockings on and remains on IV lasix at 60 mg Q12h. Patient apparently has some excoriation in her buttock and possibly a stage 2 ulcer on her buttock as well. Patient states the nursing staff put barrier cream on for her. White count today up to 23.0, hemoglobin 9.0. Sodium 136, potassium 3.7. Creatinine 2.73. 02/06/2023 Patient is evaluated today on a medical floor. She reports no shortness of breath she remains on 2 L of oxygen and she does her 2 L as needed at home. She is working physical therapy however she needs encouragement to be up in the c hair for meals and also to use the bedside commode. Patient has not wanted to take her IV Lasix this morning as it does make her urinate frequently. She remains on 60 mg every 12 hours of IV Lasix. White count remains elevated at 23.4 patient was started on oral Diflucan and will be considered for an abdominal pelvis CT. Her creatinine continues to improve today it is 2.48. 02/07/2023 Patient is evaluated today on the medical floor. Patient remains on IV lasix 60 mg Q12h. Had multiple episodes of diarrhea overnight, noted that patient was getting lactulose for elevated ammonia level. C.Dif ordered and pending. Creatinine continues to improve. Patient needs encouragement to get up out of bed and to sit up in the chair for meals. Blood culture remains negative. 02/08/2023 Patient is seen and evaluated and follow-up with multiple medical consultations following including nephrology, cardiology, infectious disease, pulmonary. WBC remains elevated at 25 with infectious disease following and is continuing on Zosyn. Blood cultures remain negative. Patient is continue on oral steroids along with DuoNeb treatments and some of the elevated white count may be multifactorial as patient is afebrile. Patient continues on 2-3 L via nasal cannula and continues with significant weakness. Recommend physical therapy daily and patient will likely need ECF. Patient kidney functions are trending down and nephrology following. Patient has had prolonged hospitalization and again will need ECF on discharge. Patient having loose stools and C. diff was negative and will discontinue lactulose and continue with Questran twice daily as patient continues to report loose stools. Review of Systems Constitutional: Reports fatigue denied any fever. Cardio vascular: denied any chest pain, palpitations Gastrointestinal: denied any nausea, vomiting. Reports diarrhea. Pulmonary: Denied any shortness of breath cough Neurologic denied any new focal deficits Reports significant weakness All inpatient medications were reviewed and appropriate changes in these medications as dictated in the interval history and assessment and plan. PHYSICAL EXAMINATION: GENERAL: The patient is alert and oriented x2-3 Well developed, well nourished. Obese. On 2L of oxygen via nasal cannula. HEENT: Pupils are round and equally reacting to light. EOMI. No scleral icterus. No conjunctival pallor. Normocephalic, atraumatic. No pharyngeal erythema. No thyromegaly. CARDIOVASCULAR: S1 and S2 muffled PULMONARY: Diminished breath sounds bilaterally with some scattered rhonchi noted ABDOMEN: Soft, obese. nontender, nondistended, normoactive bowel sounds. No palpable organomegaly. MUSCULOSKELETAL: No joint swelling or deformity. EXTREMITIES: No cyanosis, clubbing, +1 lower extremity pitting edema showing some improvement NEUROLOGICAL: Gross neurological examination did not reveal any focal deficits. Diffuse generalized weakness. SKIN: No rashes. Assessment: Acute hypoxemic hypercapnic respiratory failure secondary to acute COPD exacerbation currently 2 L of oxygen she required BiPAP with an FiO2 of 45% on admission. Altered mental status secondary to acute metabolic and toxic encephalopathy secondary to acute renal injury and hypercapnia currently improved and alert 3 Mild acute pancreatitis per her CT scan lipase has normalized. Acute renal failure with hyperkalemia due to ATN and hypotension Hypokalemia due to diuresis. Improving Acute diastolic heart failure with moderate pulmonary hypertension Chronic hypoxic respiratory failure on 2L as needed at home per patient she is unsure why. Diabetes Mellitus type 2 with hemoglobin A1C 6.6. Transamnitis likely due to volume overload; improving. Chronic Atrial fibrillation with rapid ventricular rate HR in the 100s. Cur rently rate controlled Anemia, microcytic iron deficiency on IV ferrlecit Possible colitis with ileus History of CVA/TIA Hypertension Hyperlipidemia History of memory impairment Chronic neck and back pain status post cervical fusion surgery. Stage II right buttock ulceration hospital-acquired Anxiety depression and panic disorder, not in active tissue GI prophylaxis on protonix BID DVT prophylaxis on eliquis 2.5 BID renal dosing Full Code Plan: Multiple medical consultations following and white count remains elevated, multifactorial possibly secondary to steroid-induced and Zosyn being resumed and patient with infectious disease following. C. diff was negative and is maintained on Questran Gen. surgery following as there are no GI services available for pancreatitis. Ileus is resolved and patient is having multiple bowel movements and C. diff testing was negative diet has been advanced and tolerating IV Lasix transitioned oral Lasix with cardiology following Patient is encouraged to get up out of bed and ambulate as well as up in the chair for meals. PT/OT therapy to follow daily and recommended rehab and case management following. Will follow up with case management on discharge planning Will need to discuss further with consultations. Kidney functions are trending down and will follow-up with repeat labs due to multiple complex medical issues, prognosis is guarded The impression and plan of care has been dictated by Giselle Rapp, Nurse Practitioner as directed. Dr. Jun MD I have performed a history and examination and MDM of this patient, discussed the same with the dictator, and agree with the dictator's assessment and plan as written ,documented as a scribe. Based on total visit time, I have performed more than 50% of the visit. Objective - Vital Signs Vital signs: Vital Signs Temp 98.3 F 02/08/23 11:25 Pulse 104 H 02/08/23 11:25 Resp 16 02/08/23 11:25 BP 149/85 02/08/23 11:25 Pulse Ox 98 02/08/23 11:25 FiO2 45 01/31/23 08:00 Intake & Output 02/07/23 02/08/23 02/08/23 18:59 06:59 18:59 Intake Total 350 Balance 350 Weight 102.2 kg Intake: Oral 350 Other: Voiding Method Bedside Commode Bedside Commode Bedside Commode Diaper Diaper # Voids 1 1 # Bowel Movements 1 - Labs CBC & Chem 7: 02/08/23 05:26 02/08/23 05:26 Labs: Abnormal Lab Results - Last 24 Hours (Table) 02/07/23 02/07/2302/08/23 Range/Units 17:08 20:37 05:26 WBC 25.77 H (4.50-10.00) X 10*3/uL RBC 4.09 L (4.10-5.20) X 10*6/uL Hgb 8.4 L (12.0-15.0) d/dL Hct 31.4 L (37.2-46.3) % MCV 76.8 L (80.0-97.0) FL MCH 20.5 L (27.0-32.0) pg MCHC 26.8 L (32.0-37.0) d/dL RDW 24.7 H (11.5-14.5) % Neutrophils # 22.86 H (1.80-7.70) X 10*3/uL Monocytes # 1.46 H (0.20-1.00) X 10*3/uL Hypochromasia (manual) 2+ A Anisocytosis (manual) 2+ A Microcytosis (manual) 2+ A Chloride (98-107) mmol/L Carbon Dioxide (22-30) mmol/L BUN (7-17) mg/dL Creatinine (0.52-1.04) mg/dL Glucose (74-99) mg/dL POC Glucose (mg/dL) 201 H 141 H (70-110) mg/dL C-Reactive Protein (0.00-0.80) mg/dL 02/08/23 02/08/23 02/08/23 Range/Units 05:26 05:26 07:36 WBC (4.50-10.00) X 10*3/uL RBC (4.10-5.20) X 10*6/uL Hgb (12.0-15.0) d/dL Hct (37.2-46.3) % MCV (80.0-97.0) FL MCH (27.0-32.0) pg MCHC (32.0-37.0) d/dL RDW (11.5-14.5) % Neutrophils # (1.80-7.70) X 10*3/uL Monocytes # (0.20-1.00) X 10*3/uL Hypochromasia (manual) Anisocytosis (manual) Microcytosis (manual) Chloride 95 L (98-107) mmol/L Carbon Dioxide 34 H (22-30) mmol/L BUN 60 H (7-17) mg/dL Creatinine 1.91 H (0.52-1.04) mg/dL Glucose 115 H (74-99) mg/dL POC Glucose (mg/dL) 121 H (70-110) mg/dL C-Reactive Protein 3.90 H (0.00-0.80) mg/dL 02/08/23 Range/Units 12:16 WBC (4.50-10.00) X 10*3/uL RBC (4.10-5.20) X 10*6/uL Hgb (12.0-15.0) d/dL Hct (37.2-46.3) % MCV (80.0-97.0) FL MCH (27.0-32.0) pg MCHC (32.0-37.0) d/dL RDW (11.5-14.5) % Neutrophils # (1.80-7.70) X 10*3/uL Monocytes # (0.20-1.00) X 10*3/uL Hypochromasia (manual) Anisocytosis (manual) Microcytosis (manual) Chloride (98-107) mmol/L Carbon Dioxide (22-30) mmol/L BUN (7-17) mg/dL Creatinine (0.52-1.04) mg/dL Glucose (74-99) mg/dL POC Glucose (mg/dL) 154 H (70-110) mg/dL C-Reactive Protein (0.00-0.80) mg/dL Microbiology - Last 24 Hours (Table) 02/05/23 09:06 Blood Culture - Preliminary Blood
--- NOTE | 2023-02-08 15:46 | P.PN ---
Subjective Progress Note Date: 02/08/23 This is a 67-year-old female with a known history of hypertension, hyperlipidemia, fibromyalgia, CVA/TIA, memory impairment, anxiety/depression/panic disorder, chronic and ongoing tobacco dependence. She was brought into the emergency room by her to start afternoon after finding her to be quite drowsy. He had trouble getting her up. She had trouble bearing her own weight. She was confused. Apparently she had taken extra Klonopin. Computed tomography scan of the brain revealed chronic small vessel ischemic changes without acute intracranial process. Chest x-ray revealed chronic changes but no acute pulmonary disease. Echocardiogram revealed preserved left ventricular systolic function. Severe right ventricular enlargement with moderate pulmonary hypertension. Abdominal ultrasound revealed no acute process. White count 18.2. Hemoglobin 8.3. Platelets 605. Sodium 129. Potassium 6.4. Bicarb 25. BUN 82. Creatinine 4.25. AST 4961. ALT 4711. Ammonia level XL. Creatinine kinase 471. BNP 11,700. Urine drug screen positive for opiates, oxycodone, tricyclic antidepressants. Initial arterial blood gases on 36% FiO2 revealed a P O2 of 38, pCO2 of 100 and a pH of 7.05. She was placed on BiPAP 15/5 and 32% FiO2 and follow-up blood gases revealed a pO2 of 56, pCO2 of 85 and a pH of 7.11. She is seen today in consultation in the emergency department. She is currently resting on a stretcher. Arousable. Not able to give much information. Follow-up arterial blood gases on 36% FiO2 revealed a pO2 of 69, pCO2 of 63 and a pH of 7.23. Patient was reevaluated today on 01/30/2023, patient remains on BiPAP, continues to be confused, she is arousable, but does not seem to be quite alert and oriented. In spite of being on BiPAP for the last 24 hours, repeat ABG on 40% FiO2 with IPAP of 16 and EPAP of 6 showed a pO2 of 56 E. CO2 74 and pH of 7.22 which is clearly a worsening ABG compared to the ABG noted yesterday. With worsening hypoxia worsening hypercapnia and worsening pH. Hence after evaluating the patient I recommended immediate transfer to the ICU and will continue BiPAP, we will check a follow-up chest x-ray, if the patient does not improve much, and we will continue diuretics, may have to consider intubating the patient and placement on mechanical ventilation. Chest x-ray this morning continues to show cardiomegaly and interstitial edema, doubt underlying pneumonia. WBC count today is 15.7 hemoglobin is 8.2 sodium is 130 potassium 5.8 BUN is 105 creatinine 4.41. Liver enzymes are worsening with worsening AST of over 1500, ALT was close to 5000s, CPK is 471 Procalcitonin is 0.77, CT of the abdomen and pelvis showed mild pancreatitis with colonic dilatation suggestive of colonic ileus. Patient was seen by general surgery on [facility] for her abnormal CT of the abdomen and pelvis and recommended mostly conservative measures Reevaluated today on 01/31/2023, patient was transferred to ICU yesterday, remains in the ICU, remains on BiPAP 15/45%. Overnight the patient was extremely agitated and restless, and kept pulling her BiPAP, hence she was placed on Precedex which is now at 1 mcg/kg/h. For her atrial fibrillation with RVR remains on Cardizem at 5 mg per hour. Patient remains on Zosyn she also remains on Lasix at 40 mg IV push every 8 hours. Chest x-ray is showing definite improvement. Follow-up ABG today on the BiPAP showed significant improvement compared to yesterday with improving oxygenation pO2 105 improving pCO2 down to 60 from 74 and improving pH from 7.22 to 7.34 liver enzymes are elevated but improving and malaise is elevated at 348 and lipase is 1070 chest x-ray is showing improvement in her interstitial edema but not fully resolved. The patient is seen today 02/01/2023 in follow-up in the intensive care unit. She is awake and alert in no acute distress. Sitting up in bed. She is curr ently off the BiPAP. She is maintaining good O2 saturations in the 90s on 4 L/m per nasal cannula. She is receiving normal saline at 20 ML's per hour. White count 14.7. Hemoglobin 7.6. Platelets 452. Sodium 135. Potassium 4.7. Bicarb 30. BUN 123. Creatinine 4.20. Glucose 107. Amylase 372. Lipase 593. She is currently in a -2.1 L balance. She remains on Lasix 60 mg every 8 hours. Continue bronchodilators and steroids. Anticoagulated with Eliquis. Antibiotics in the form of Zosyn. The patient is seen today 02/02/2023 in follow-up in the intensive care unit. She is sitting up in bed. Awake and alert in no acute distress. She is maintaining good O2 saturations in the 90s on 3 L/m per nasal cannula. She has normal saline at 20 ML's per hour. White count 12.9. Hemoglobin 8.1. Platelets 421. Sodium 135. Potassium 4.1. Bicarb 33. BUN 123. Creatinine 4.05. Glucose 142. Lipase 345. She is continued on bronchodilators and steroids. Anticoagulated with Eliquis. Antibiotics in the form of Zosyn. She remains on IV diuretics. Currently in a -1.7 L balance. The patient is seen today 02/03/2023 in follow-up in the intensive care unit. She has a regular medical floor overflow patient. She is currently sitting up in bed. Awake and alert in no acute distress. She is maintaining O2 saturation in the 90s on 3 L/m per nasal cannula. She remains quite weak. She is continued on DuoNeb inhalations, Pulmicort and performs inhalations, IV Solu- Medrol. She remains on antibiotics in the form of Zosyn. Anticoagulated with Eliquis. Remains on IV Lasix. Currently in a -1.3 L balance. Count 14.9. Hemoglobin 8.5. Platelets 413. Sodium 135. Potassium 4.4. Bicarb 36. BUN 118. Creatinine 3.74. Glucose 129. Lipase 267. The patient is seen today 02/04/2023 in follow-up in the intensive care unit. She is a regular medical floor overflow. She is resting comfortably in bed. Awake and alert in no acute distress. Maintaining good O2 saturations in the 90s on 2 L/m per nasal cannula. She does desaturate to 84% on room air. She has normal saline at 20 ML's per hour. She is continued on Lasix 60 mg IV every 12 hours. She remains on Symbicort and DuoNeb inhalations, prednisone taper. Anticoagulated with Eliquis. Remains on antibiotics in the form of Zosyn. She is currently in a -1.8 L balance. White count 19.0. Hemoglobin 8.8. Platelets 410. Sodium 136. Potassium 3.3. Bicarb 36. BUN 109. Creatinine 3.51. Glucose 143. Patient is seen today 02/05/2023 in follow-up in the intensive care unit. She is a regular medical floor overflow still. She is resting comfortably in bed. Awake and alert in no acute distress. Maintaining O2 saturations in the 90s on 2 L/m per nasal cannula. She remains on DuoNeb inhalations, Symbicort, prednisone taper. Anticoagulated with Eliquis. Continues on IV diuretics. Currently in a -1.5 L balance. White count 23.0. Hemoglobin 9.0. Platelets 374. Sodium 136. Potassium 3.7. Bicarb 37. BUN 104. Creatinine 2.73. Glucose 114. The patient is seen today 02/06/2023 in follow-up on the regular medical floor. She is sitting up in bed. Awake and alert in no acute distress. She is maintaining good O2 saturations in the 90s on 3 L/m per nasal cannula. No IV fluids. She is continued on Symbicort, DuoNeb inhalations, prednisone taper. She is on IV diuretics. Anticoagulated with Eliquis. Currently in a -1.6 L balance. White count 23.4. Hemoglobin 9.6. Platelets 320. Sodium 136. Potassium 3.4. Bicarb 39. BUN 91. Creatinine 2.48. Glucose 109. C-reactive protein 4.3. The patient is seen today 02/07/2023 in follow-up on the regular medical floor. She is resting comfortably in bed. Awake and alert in no acute distress. Maintaining O2 saturations in the 90s on 3 L/m per nasal cannula. She remains on DuoNeb inhalations, Symbicort, prednisone taper. Anticoagulated with Eliquis. Remains on oral diuretics. Continued on Diflucan. Computed tomography scan of the abdomen and pelvis revealed acute interstitial edematous pancreatitis. No organizing fluid collection at this time. The cultures revealed no growth. Blood sugar 109. Today's evaluation of 02/08/2023, I'm seeing the patient for a follow-up. I reviewed the records and the patient has improved considerably. I reviewed a series of blood gases has been done on the patient and the patient has shown steady improvement in her carbon dioxide level and a drop down to 60. Most recent pH was at 7.34. She is currently on 3 L of oxygen by nasal cannula. She is not using any form of noninvasive positive pressure ventilation. Respiratory failure is multifactorial including COPD sleep apnea and a combination of drugs that she takes which include MS Contin, Percocet, Flexeril, Klonopin, and she is also taking a sleeping medication. She remains on anticoagulation with Eliquis.The most recent blood work shows a white cell count of 25, hemoglobin of 8.4 and a platelet count of 228, BUN is at 60 with a creatinine of 1.9 and a sodium level is at 137 with a potassium level of 3.5. I noticed that the patient was in acute kidney injury and the creatinine continues to gradually improve as currently down to 1.9. Objective - Vital Signs Vital signs: Vital Signs Temp 98.3 F 02/08/23 11:25 Pulse 104 H 02/08/23 11:25 Resp 16 02/08/23 11:25 BP 149/85 02/08/23 11:25 Pulse Ox 98 02/08/23 11:25 FiO2 45 01/31/23 08:00 Intake & Output 02/07/23 02/08/23 02/08/23 18:59 06:59 18:59 Intake Total 350 Balance 350 Weight 102.2 kg Intake: Oral 350 Other: Voiding Method Bedside Commode Bedside Commode Bedside Commode Diaper Diaper # Voids 1 1 # Bowel Movements 1 - Exam GENERAL EXAM: Alert, 67-year-old female, resting comfortably in bed, on 3 L nasal cannula, in no apparent distress. HEAD: Normocephalic. EYES: Normal reaction of pupils, equal size. NOSE: Clear with pink turbinates. THROAT: No erythema or exudates. NECK: No masses, no JVD. CHEST: No chest wall deformity. LUNGS: Equal air entry with bilateral end expiratory wheeze, few scattered rhonchi. CVS: S1 and S2 normal with no audible murmur, regular rhythm. ABDOMEN: No hepatosplenomegaly, normal bowel sounds, no guarding or rigidity. SPINE: No scoliosis or deformity SKIN: No rashes CENTRAL NERVOUS SYSTEM: No focal deficits, tone is normal in all 4 extremities. EXTREMITIES: There is no peripheral edema. No clubbing, no cyanosis. Peripheral pulses are intact. - Labs CBC & Chem 7: 02/08/23 05:26 02/08/23 05:26 Labs: Abnormal Lab Results - Last 24 Hours (Table) 02/07/23 02/07/23 02/08/23 Range/Units 17:08 20:37 05:26 WBC 25.77 H (4.50-10.00) X 10*3/uL RBC 4.09 L (4.10-5.20) X 10*6/uL Hgb 8.4 L (12.0-15.0) d/dL Hct 31.4 L (37.2-46.3) % MCV 76.8 L (80.0-97.0) FL MCH 20.5 L (27.0-32.0) pg MCHC 26.8 L (32.0-37.0) d/dL RDW 24.7 H (11.5-14.5) % Neutrophils # 22.86 H (1.80-7.70) X 10*3/uL Monocytes # 1.46 H (0.20-1.00) X 10*3/uL Hypochromasia (manual) 2+ A Anisocytosis (manual) 2+ A Microcytosis (manual) 2+ A Chloride (98-107) mmol/L Carbon Dioxide (22-30) mmol/L BUN (7-17) mg/dL Creatinine (0.52-1.04) mg/dL Glucose (74-99) mg/dL POC Glucose (mg/dL) 201 H 141 H (70-110) mg/dL C-Reactive Protein (0.00-0.80) mg/dL 02/08/23 02/08/23 02/08/23 Range/Units 05:26 05:26 07:36 WBC (4.50-10.00) X 10*3/uL RBC (4.10-5.20) X 10*6/uL Hgb (12.0-15.0) d/dL Hct (37.2-46.3) % MCV (80.0-97.0) FL MCH (27.0-32.0) pg MCHC (32.0-37.0) d/dL RDW (11.5-14.5) % Neutrophils # (1.80-7.70) X 10*3/uL Monocytes # (0.20-1.00) X 10*3/uL Hypochromasia (manual) Anisocytosis (manual) Microcytosis (manual) Chloride 95 L (98-107) mmol/L Carbon Dioxide 34 H (22-30) mmol/L BUN 60 H (7-17) mg/dL Creatinine 1.91 H (0.52-1.04) mg/dL Glucose 115 H (74-99) mg/dL POC Glucose (mg/dL) 121 H (70-110) mg/dL C-Reactive Protein 3.90 H (0.00-0.80) mg/dL 02/08/23 Range/Units 12:16 WBC (4.50-10.00) X 10*3/uL RBC (4.10-5.20) X 10*6/uL Hgb (12.0-15.0) d/dL Hct (37.2-46.3) % MCV (80.0-97.0) FL MCH (27.0-32.0) pg MCHC (32.0-37.0) d/dL RDW (11.5-14.5) % Neutrophils # (1.80-7.70) X 10*3/uL Monocytes # (0.20-1.00) X 10*3/uL Hypochromasia (manual) Anisocytosis (manual) Microcytosis (manual) Chloride (98-107) mmol/L Carbon Dioxide (22-30) mmol/L BUN (7-17) mg/dL Creatinine (0.52-1.04) mg/dL Glucose (74-99) mg/dL POC Glucose (mg/dL) 154 H (70-110) mg/dL C-Reactive Protein (0.00-0.80) mg/dL Microbiology - Last 24 Hours (Table) 02/05/23 09:06 Blood Culture - Preliminary Blood Assessment and Plan Plan: Altered mental status secondary to hypercapnic respiratory failure secondary to possible extra Klonopin use as well as an acute exacerbation of diastolic congestive heart failure, this improved and the patient's mentation is back to normal. Hypercapnic respiratory failure was multifactorial including COPD/MYLENE//medication Acute hypoxemic and hypercapnic respiratory failure secondary to above improved and on 3 L cannula Severe pulmonary hypertension with evidence of right-sided heart failure, please refer to the echocardiogram. This could be related to chronic hypoxemia. Metabolic encephalopathy secondary to above, elevated ammonia level, recovered Leukocytosis Anemia Acute kidney injury, current creatinine is improving is down to 1.9 Hyperkalemia Acute transaminitis trending down Acute pancreatitis, lipase improved and at 267. Computed tomography scan of the abdomen and pelvis revealed acute interstitial edematous pancreatitis. No organizing fluid collection at this time. Troponin leak Urine drug screen is positive for opiates, oxycodone and tricyclic antidepressan ts History of fibromyalgia History of anxiety/depression/panic disorder Hyperlipidemia Hypertension Memory impairment Chronic and ongoing tobacco dependence Chronic atrial fibrillation anticoagulant with Eliquis Diarrhea, stool for C. diff has been negative Plan: The patient will be kept on 3 L of O2 nasal cannula and she has home O2 Continue diuretics monitor renal function Incentive spirometer Anticoagulants with Eliquis bronchodilators Outpatient sleep study at the later stage Avoid any form of excessive intake of narcotics and benzodiazepines. The chest x-ray was reviewed from today. It shows cardiomegaly. No evidence of any pneumonia at this point Zosyn can be discontinued Monitor diarrhea We'll continue to follow
[2023-02-08] MEDS: PIPERACILLIN-TAZOBACTAM 3.375 GM in SODIUM CHLORIDE 0.9% 100 ML IVPB SCH (16:49)
[2023-02-08 18:07] LABS: Glucose,Whole Blood 177 mg/dL (70-110)
[2023-02-08] MEDS: ONDANSETRON 4 MG/2 ML VIAL IVP PRN (19:41)
[2023-02-08 20:15] LABS: Glucose,Whole Blood 153 mg/dL (70-110)
[2023-02-08] MEDS: METOPROLOL SUCCINATE (ER) 25 MG TAB.ER.24H PO SCH (21:12)
[2023-02-09] MEDS: PIPERACILLIN-TAZOBACTAM 3.375 GM in SODIUM CHLORIDE 0.9% 100 ML IVPB SCH ×4 (00:14→23:34)
[2023-02-09] MEDS: ACETAMINOPHEN TAB 325 MG TAB PO PRN ×4 (02:39→20:51)
[2023-02-09] MEDS: SYMBICORT 160-4.5 MCG INHALER INHALATION SCH ×2 (07:21→21:27)
[2023-02-09] MEDS: IPRATROPIUM-ALBUTEROL 3 ML NEB INHALATION SCH ×4 (07:21→21:27)
[2023-02-09 07:28] LABS: Glucose,Whole Blood 122 mg/dL (70-110)
[2023-02-09] MEDS: PANTOPRAZOLE 40 MG/10 ML VIAL IVP SCH ×2 (09:19→20:50)
[2023-02-09] MEDS: INSULIN ASPART (NovoLOG) 100 UNIT/ML VIAL SQ SCH ×4 (09:21→20:50)
--- NOTE | 2023-02-09 10:55 | P.PN ---
Subjective HISTORY OF PRESENT ILLNESS: 02/07/2023 Patient is stable from cardiac vessel standpoint. She is having good diuresis with IV Lasix 60 mg twice a day. Her lower swelling has improved significantly. She is tolerating oral diet. Rate controlled atrial fibrillation on telemetry 02/08/2023 Patient examined this morning. She is sitting in the chair. She denies chest pain or pressure. Denies SOB. Remains on oral lasix. BMP from this morning is currently pending. Patient is currently not on telemetry. Documented heart rates 100-120. Blood pressure stable. 02/09/2023 Patient examined this morning. She is sitting up in the chair. Patient denies chest pain or pressure. She denies shortness of breath. Blood pressure stable. Telemetry reveals atrial fibrillation. Heart rate is in the low 100s. PHYSICAL EXAM: VITAL SIGNS: Reviewed. GENERAL: Well-developed in no acute distress. NECK: Supple. No JVD or thyromegaly LUNGS: Respirations even and unlabored. Lungs with crackles on left and rhonchi on the right. HEART: Irregular rate and rhythm. S1 and S2 heard. EXTREMITIES: Normal range of motion. No clubbing or cyanosis. Peripheral pulses intact. Bilateral lower extremity edema present. ASSESSMENT: Acute hypoxic and hypercapnic respiratory failure Acute COPD exacerbation Leukocytosis Acute heart failure with preserved ejection fraction Permanent atrial fibrillation Pancreatitis with pseudocyst Acute kidney injury Former nicotine dependence PLAN: Continue current cardiac medications Will consider right-sided heart catheterization on an outpatient basis secondary to significant right ventricular dilatation with concerns of possible increased pulmonary pressures Obtain incentive spirometer Apply bilateral JANEL hose Patient is currently stable from a cardiac perspective Further recommendations pending patient's course Nurse practitioner note has been reviewed by physician. Signing provider agrees with the documented findings, assessment, and plan of care. Objective - Vital Signs Vital signs: Vital Signs Temp 98.1 F 02/09/23 07:35 Pulse 105 H 02/09/23 07:35 Resp 20 02/09/23 07:35 BP 147/103 02/09/23 07:35 Pulse Ox 93 L 02/09/23 07:35 FiO2 45 01/31/23 08:00 Intake & Output 02/08/23 02/09/23 02/09/23 18:59 06:59 18:59 Weight 102.2 kg Other: Voiding Method Bedside Commode Bedside Commode # Voids 2 1 # Bowel Movements 2 - Labs CBC & Chem 7: 02/08/23 05:26 02/08/23 05:26 Labs: Abnormal Lab Results - Last 24 Hours (Table) 02/08/23 02/08/23 02/08/23 Range/Units 05:26 05:26 05:26 WBC 25.77 H (4.50-10.00) X 10*3/uL RBC 4.09 L (4.10-5.20) X 10*6/uL Hgb 8.4 L (12.0-15.0) d/dL Hct 31.4 L (37.2-46.3) % MCV 76.8 L (80.0-97.0) FL MCH 20.5 L (27.0-32.0) pg MCHC 26.8 L (32.0-37.0) d/dL RDW 24.7 H (11.5-14.5) % Neutrophils # 22.86 H (1.80-7.70) X 10*3/uL Monocytes # 1.46 H (0.20-1.00) X 10*3/uL Hypochromasia (manual) 2+ A Anisocytosis (manual) 2+ A Microcytosis (manual) 2+ A Chloride 95 L (98-107) mmol/L Carbon Dioxide 34 H (22-30) mmol/L BUN 60 H (7-17) mg/dL Creatinine 1.91 H (0.52-1.04) mg/dL Glucose 115 H (74-99) mg/dL POC Glucose (mg/dL) (70-110) mg/dL C-Reactive Protein 3.90 H (0.00-0.80) mg/dL 02/08/23 02/08/23 02/08/23 Range/Units 12:16 18:04 20:13 WBC (4.50-10.00) X 10*3/uL RBC (4.10-5.20) X 10*6/uL Hgb (12.0-15.0) d/dL Hct (37.2-46.3) % MCV (80.0-97.0) FL MCH (27.0-32.0) pg MCHC (32.0-37.0) d/dL RDW (11.5-14.5) % Neutrophils # (1.80-7.70) X 10*3/uL Monocytes # (0.20-1.00) X 10*3/uL Hypochromasia (manual) Anisocytosis (manual) Microcytosis (manual) Chloride (98-107) mmol/L Carbon Dioxide (22-30) mmol/L BUN (7-17) mg/dL Creatinine (0.52-1.04) mg/dL Glucose (74-99) mg/dL POC Glucose (mg/dL) 154 H 177 H 153 H (70-110) mg/dL C-Reactive Protein (0.00-0.80) mg/dL 02/09/23 Range/Units 07:24 WBC (4.50-10.00) X 10*3/uL RBC (4.10-5.20) X 10*6/uL Hgb (12.0-15.0) d/dL Hct (37.2-46.3) % MCV (80.0-97.0) FL MCH (27.0-32.0) pg MCHC (32.0-37.0) d/dL RDW (11.5-14.5) % Neutrophils # (1.80-7.70) X 10*3/uL Monocytes # (0.20-1.00) X 10*3/uL Hypochromasia (manual) Anisocytosis (manual) Microcytosis (manual) Chloride (98-107) mmol/L Carbon Dioxide (22-30) mmol/L BUN (7-17) mg/dL Creatinine (0.52-1.04) mg/dL Glucose (74-99) mg/dL POC Glucose (mg/dL) 122 H (70-110) mg/dL C-Reactive Protein (0.00-0.80) mg/dL Microbiology - Last 24 Hours (Table) 02/05/23 09:06 Blood Culture - Preliminary Blood
[2023-02-09 11:11] LABS: ALT 133 U/L (8-44); AST 27 U/L (13-35); Albumin 3.4 d/dL (3.8-4.9); Albumin/Globulin Ratio 1.48 Ratio (1.60-3.17); Alkaline Phosphatase 68 U/L (41-126); Blood Urea Nitrogen 43.4 mg/dL (9.0-27.0); Calcium 9.7 mg/dL (8.7-10.3); Carbon Dioxide 27.1 mmol/L (21.6-31.8); Chloride 99 mmol/L (96-109); Globulin 2.3 d/dL (1.6-3.3); Glucose 115 mg/dL (70-110); Potassium 3.7 mmol/L (3.5-5.5); Sodium 143 mmol/L (135-145); Total Bilirubin 0.6 mg/dL (0.3-1.2); Total Protein 5.7 d/dL (6.2-8.2)
[2023-02-09 11:17] LABS: Basophils # (A) 0.05 X 10*3/uL (0.00-0.10); Basophils % (A) 0.2 %; Eosinophils # (A) 0.14 X 10*3/uL (0.04-0.35); Eosinophils % (A) 0.5 %; HGB 9.1 d/dL (12.0-15.0); Lymphocytes # (A) 0.94 X 10*3/uL (0.90-5.00); Lymphocytes % (A) 3.6 %; MCHC 26.8 d/dL (32.0-37.0); MCV 78.3 FL (80.0-97.0); Monocytes # (A) 1.38 X 10*3/uL (0.20-1.00); Monocytes % (A) 5.2 %; NRBC Per 100 WBC 0 X 10*3/uL (0.00-0.01); Neutrophils # (A) 23.67 X 10*3/uL (1.80-7.70); Neutrophils % (A) 89.8 %; Platelet Count 147 X 10*3/uL (140-440); RBC 4.34 X 10*6/uL (4.10-5.20); RDW 25.4 % (11.5-14.5); WBC 26.37 X 10*3/uL (4.50-10.00)
[2023-02-09] MEDS: AMIODARONE 100 MG TAB PO SCH (11:17)
[2023-02-09] MEDS: DAPAGLIFLOZIN PROPANEDIOL 10 MG TABLET PO SCH (11:18)
[2023-02-09] MEDS: APIXABAN 2.5 MG TABLET PO SCH ×2 (11:18→20:49)
[2023-02-09] MEDS: DULoxetine HCL 60 MG CAPSULE.DR PO SCH (11:20)
[2023-02-09] MEDS: FLUCONAZOLE 100 MG TAB PO SCH (11:20)
[2023-02-09] MEDS: LORATADINE 10 MG TAB PO SCH (11:21)
[2023-02-09] MEDS: FUROSEMIDE 20 MG TAB PO SCH (11:22)
[2023-02-09] MEDS: METOPROLOL SUCCINATE (ER) 25 MG TAB.ER.24H PO SCH ×2 (11:23→20:50)
[2023-02-09] MEDS: METOPROLOL SUCCINATE (ER) 100 MG TAB.ER.24H PO SCH ×2 (11:23→20:50)
[2023-02-09] MEDS: SPIRONOLACTONE 25 MG TAB PO SCH (11:24)
[2023-02-09] MEDS: predniSONE 10 MG TAB PO SCH (11:24)
--- NOTE | 2023-02-09 11:54 | P.PN ---
Subjective Patient is seen for follow-up for acute kidney injury and hyperkalemia. She is currently being diuresed. renal function continues to improve. Serum creatinine now staying around 2 No complaints today. Objective - Vital Signs Vital signs: Vital Signs Temp 98.1 F 02/09/23 07:35 Pulse 105 H 02/09/23 07:35 Resp 16 02/09/23 11:14 BP 147/103 02/09/23 07:35 Pulse Ox 93 L 02/09/23 07:35 FiO2 45 01/31/23 08:00 Intake & Output 02/08/23 02/09/23 02/09/23 18:59 06:59 18:59 Weight 102.2 kg Other: Voiding Method Bedside Commode Bedside Commode # Voids 2 1 # Bowel Movements 2 - Exam Patient is awake, comfortable. Alert oriented 3 Lungs are clear CVS S1 and S2 Abdomen is soft, nontender 1+ edema in the legs [employer] exam grossly intact - Labs CBC & Chem 7: 02/09/23 06:18 02/09/23 06:18 Labs: Abnormal Lab Results - Last 24 Hours (Table) 02/08/23 02/08/23 02/08/23 Range/Units 12:16 18:04 20:13 WBC (4.50-10.00) X 10*3/uL Hgb (12.0-15.0) d/dL Hct (37.2-46.3) % MCV (80.0-97.0) FL MCH (27.0-32.0) pg MCHC (32.0-37.0) d/dL RDW (11.5-14.5) % Neutrophils # (1.80-7.70) X 10*3/uL Monocytes # (0.20-1.00) X 10*3/uL Anion Gap (4.00-12.00) mmol/L BUN (9.0-27.0) mg/dL Creatinine (0.6-1.5) mg/dL Est GFR (CKD-EPI) (>=60) BUN/Creatinine Ratio (12.00-20.00) Ratio Glucose (70-110) mg/dL POC Glucose (mg/dL) 154 H 177 H 153 H (70-110) mg/dL ALT (8-44) U/L C-Reactive Protein (0.00-0.80) mg/dL Total Protein (6.2-8.2) d/dL Albumin (3.8-4.9) d/dL Albumin/Globulin Ratio (1.60-3.17) Ratio 02/09/23 02/09/23 02/09/23 Range/Units 06:18 06:18 07:24 WBC 26.37 H (4.50-10.00) X 10*3/uL Hgb 9.1 L (12.0-15.0) d/dL Hct 34.0 L (37.2-46.3) % MCV 78.3 L (80.0-97.0) FL MCH 21.0 L (27.0-32.0) pg MCHC 26.8 L (32.0-37.0) d/dL RDW 25.4 H (11.5-14.5) % Neutrophils # 23.67 H (1.80-7.70) X 10*3/uL Monocytes # 1.38 H (0.20-1.00) X 10*3/uL Anion Gap 16.90 H (4.00-12.00) mmol/L BUN 43.4 H (9.0-27.0) mg/dL Creatinine 2.0 H (0.6-1.5) mg/dL Est GFR (CKD-EPI) 27 L (>=60) BUN/Creatinine Ratio 21.70 H (12.00-20.00) Ratio Glucose 115 H (70-110) mg/dL POC Glucose (mg/dL) 122 H (70-110) mg/dL ALT 133 H (8-44) U/L C-Reactive Protein 4.30 H (0.00-0.80) mg/dL Total Protein 5.7 L (6.2-8.2) d/dL Albumin 3.4 L (3.8-4.9) d/dL Albumin/Globulin Ratio 1.48 L (1.60-3.17) Ratio Microbiology - Last 24 Hours (Table) 02/05/23 09:06 Blood Culture - Preliminary Blood Assessment and Plan Assessment: 1. Acute kidney injury mostly ATN from hypotension. UA is completely benign. No evidence of hydronephrosis on abdominal CT. previous creatinine 1.0 on 08/14/2021. Renal function continues to improve. Creatinine staying around 2 2. Mental status changes secondary to hypercapnic respiratory failure, resolved 3. Respiratory acidosis and hypercapnic respiratory failure, improved 4. Hyperkalemia associated with acute kidney injury, improved 5. Anemia with severe iron deficiency. No active bleeding noted. Status post IV iron 6. Hyponatremia, hypervolemic, improved 7. Hypervolemia/volume overload, improved 8. Colonic dilatation, ileus 9. Acute pancreatitis, currently tolerating oral intake 10. Shock liver, improving Plan: Decrease Lasix to 40 mg twice a day Continue Aldactone Avoid nephrotoxic agents
--- NOTE | 2023-02-09 13:13 | P.PN ---
Subjective Progress Note Date: 02/08/23 Principal diagnosis: Leukocytosis Patient is a 67-year-old female presenting to the hospital on 01/28/2023 for evaluation of drowsiness confusion patient has been diagnosed with acute hypercapnic respiratory failure with COPD exacerbation, and also have mildly elevated lipase concerning for mild pancreatitis, patient was noticed to have worsening of the white count prompting this infectious disease consultation. On today's evaluation that is 02/08/2023, the patient continues to be afebrile, the patient is breathing comfortably on 2 L nasal cannula oxygen, denies any chest pain or cough, patient denies any worsening abdominal pain, and denies any nausea/vomiting and no further diarrhea Patient did have a white count is slightly up to 25.77, creatinine is 1.91 CRP is 3.90 blood cultures currently pending. Objective - Vital Signs Vital signs: Vital Signs Temp 98.0 F 02/08/23 07:26 Pulse 120 H 02/08/23 07:26 Resp 18 02/08/23 07:26 BP 159/88 02/08/23 07:26 Pulse Ox 100 02/08/23 07:26 FiO2 45 01/31/23 08:00 Intake & Output 02/07/23 02/08/23 02/08/23 18:59 06:59 18:59 Intake Total 350 Balance 350 Intake: Oral 350 Other: Voiding Method Bedside Commode Bedside Commode Bedside Commode Diaper Diaper # Voids 1 1 # Bowel Movements 1 - Exam GENERAL DESCRIPTION: An elderly female lying in bed in no distress RESPIRATORY SYSTEM: Unlabored breathing , decreased breath sounds at bases HEART: S1 S2 regular rate and rhythm , ABDOMEN: Soft , no tenderness EXTREMITIES: No edema feet - Labs CBC & Chem 7: 02/09/23 06:18 02/09/23 06:18 Labs: Abnormal Lab Results - Last 24 Hours (Table) 02/07/23 02/07/23 02/07/23 Range/Units 10:33 12:31 17:08 WBC (4.50-10.00) X 10*3/uL RBC (4.10-5.20) X 10*6/uL Hgb (12.0-15.0) d/dL Hct (37.2-46.3) % MCV (80.0-97.0) FL MCH (27.0-32.0) pg MCHC (32.0-37.0) d/dL RDW (11.5-14.5) % Neutrophils # (1.80-7.70) X 10*3/uL Monocytes # (0.20-1.00) X 10*3/uL Hypochromasia (manual) Anisocytosis (manual) Microcytosis (manual) Chloride 95 L (98-107) mmol/L Carbon Dioxide 38 H (22-30) mmol/L BUN 74 H (7-17) mg/dL Creatinine 2.08 H (0.52-1.04) mg/dL Glucose 182 H (74-99) mg/dL POC Glucose (mg/dL) 137 H 201 H (70-110) mg/dL C-Reactive Protein (0.00-0.80) mg/dL 02/07/23 02/08/23 02/08/23 Range/Units 20:37 05:26 05:26 WBC 25.77 H (4.50-10.00) X 10*3/uL RBC 4.09 L (4.10-5.20) X 10*6/uL Hgb 8.4 L (12.0-15.0) d/dL Hct 31.4 L (37.2-46.3) % MCV 76.8 L (80.0-97.0) FL MCH 20.5 L (27.0-32.0) pg MCHC 26.8 L (32.0-37.0) d/dL RDW 24.7 H (11.5-14.5) % Neutrophils # 22.86 H (1.80-7.70) X 10*3/uL Monocytes # 1.46 H (0.20-1.00) X 10*3/uL Hypochromasia (manual) 2+ A Anisocytosis (manual) 2+ A Microcytosis (manual) 2+ A Chloride (98-107) mmol/L Carbon Dioxide (22-30) mmol/L BUN (7-17) mg/dL Creatinine (0.52-1.04) mg/dL Glucose (74-99) mg/dL POC Glucose (mg/dL) 141 H (70-110) mg/dL C-Reactive Protein 3.90 H (0.00-0.80) mg/dL 02/08/23 Range/Units 07:36 WBC (4.50-10.00) X 10*3/uL RBC (4.10-5.20) X 10*6/uL Hgb (12.0-15.0) d/dL Hct (37.2-46.3) % MCV (80.0-97.0) FL MCH (27.0-32.0) pg MCHC (32.0-37.0) d/dL RDW (11.5-14.5) % Neutrophils # (1.80-7.70) X 10*3/uL Monocytes # (0.20-1.00) X 10*3/uL Hypochromasia (manual) Anisocytosis (manual) Microcytosis (manual) Chloride (98-107) mmol/L Carbon Dioxide (22-30) mmol/L BUN (7-17) mg/dL Creatinine (0.52-1.04) mg/dL Glucose (74-99) mg/dL POC Glucose (mg/dL) 121 H (70-110) mg/dL C-Reactive Protein (0.00-0.80) mg/dL Microbiology - Last 24 Hours (Table) 02/05/23 09:06 Blood Culture - Preliminary Blood Assessment and Plan (1) Leukocytosis Current Visit: Yes Status: Acute Code(s): D72.829 - ELEVATED WHITE BLOOD CELL COUNT, UNSPECIFIED SNOMED Code(s): 528707810 (2) Diarrhea Current Visit: Yes Status: Acute Code(s): R19.7 - DIARRHEA, UNSPECIFIED SNOMED Code(s): 27722417 Plan: 1patient with elevated white count and this patient has been in the hospital for almost 8 days with initial presentation for weakness was diagnosed with COPD exacerbation also mild pancreatitis on the basis of CT and elevated amylase and lipase patient did have admission improvement in her white count though over the last 3 days her white count has been trending up however the patient has been afebrile denies any bone pain no tenderness was noticed chest x-ray negative for pneumonia no urinary symptoms no problem with the peripheral IV sites 2patient did have a persistent elevated white count, patient did have CT of abdominal pelvis with evidence of pancreatitis and pseudocyst more likely responsible for this elevated white count. We will empirically add Zosyn and see clinical response 3patient has developed diarrhea and was exposed to antibiotics C. diff was requested however the patient mentioned resolution of her diarrhea, Dictation was produced using [employer] dictation software. please excuse any grammatical, word or spelling errors. Time with Patient: Less than 30
--- NOTE | 2023-02-09 13:15 | P.PN ---
Subjective Progress Note Date: 02/09/23 Principal diagnosis: Leukocytosis Patient is a 67-year-old female presenting to the hospital on 01/28/2023 for evaluation of drowsiness confusion patient has been diagnosed with acute hypercapnic respiratory failure with COPD exacerbation, and also have mildly elevated lipase concerning for mild pancreatitis, patient was noticed to have worsening of the white count prompting this infectious disease consultation. On today's evaluation that is 02/09/2023, the patient remains to be afebrile, the patient is breathing comfortably on 2 L nasal cannula supplemental oxygen and denies any shortness of breath, the patient denies having any chest pain or cough, patient denies nausea/vomiting did have diarrhea and stool for C. diff came back negative, denies any worsening abdominal pain, Patient did have a white count is slightly up to 26.37, creatinine is 2.0, CRP is 3.90 blood cultures currently pending. Objective - Vital Signs Vital signs: Vital Signs Temp 98.1 F 02/09/23 07:35 Pulse 105 H 02/09/23 07:35 Resp 20 02/09/23 07:35 BP 147/103 02/09/23 07:35 Pulse Ox 93 L 02/09/23 07:35 FiO2 45 01/31/23 08:00 Intake & Output 02/08/23 02/09/23 02/09/23 18:59 06:59 18:59 Weight 102.2 kg Other: Voiding Method Bedside Commode Bedside Commode # Voids 2 1 # Bowel Movements 2 - Exam GENERAL DESCRIPTION: An elderly female lying in bed in no distress RESPIRATORY SYSTEM: Unlabored breathing , decreased breath sounds at bases HEART: S1 S2 regular rate and rhythm , ABDOMEN: Soft , no tenderness EXTREMITIES: No edema feet - Labs CBC & Chem 7: 02/09/23 06:18 02/09/23 06:18 Labs: Abnormal Lab Results - Last 24 Hours (Table) 02/08/23 02/08/23 02/08/23 Range/Units 05:26 12:16 18:04 Chloride 95 L (98-107) mmol/L Carbon Dioxide 34 H (22-30) mmol/L BUN 60 H (7-17) mg/dL Creatinine 1.91 H (0.52-1.04) mg/dL Glucose 115 H (74-99) mg/dL POC Glucose (mg/dL) 154 H 177 H (70-110) mg/dL 02/08/23 02/09/23 Range/Units 20:13 07:24 Chloride (98-107) mmol/L Carbon Dioxide (22-30) mmol/L BUN (7-17) mg/dL Creatinine (0.52-1.04) mg/dL Glucose (74-99) mg/dL POC Glucose (mg/dL) 153 H 122 H (70-110) mg/dL Microbiology - Last 24 Hours (Table) 02/05/23 09:06 Blood Culture - Preliminary Blood Assessment and Plan (1) Leukocytosis Current Visit: Yes Status: Acute Code(s): D72.829 - ELEVATED WHITE BLOOD JOSE L COUNT, UNSPECIFIED SNOMED Code(s): 873839495 (2) Diarrhea Current Visit: Yes Status: Acute Code(s): R19.7 - DIARRHEA, UNSPECIFIED SNOMED Code(s): 89078718 Plan: 1patient with elevated white count and this patient has been in the hospital for almost 8 days with initial presentation for weakness was diagnosed with COPD exacerbation also mild pancreatitis on the basis of CT and elevated amylase and lipase patient did have admission improvement in her white count though over the last 3 days her white count has been trending up however the patient has been afebrile denies any bone pain no tenderness was noticed chest x-ray negative for pneumonia no urinary symptoms no problem with the peripheral IV sites 2patient has developed diarrhea and was exposed to antibiotics C. diff was negative patient to continue with a Questran for symptomatic treatment 3-patient did have a persistent elevated white count, patient did have CT of abdominal pelvis with evidence of pancreatitis and pseudocyst more likely responsible for this elevated white count plus continued use of prednisone as the patient does not look toxic continue with empiric Zosyn while waiting for the cultures to finalize, Dictation was produced using [employer] dictation software. please excuse any grammatical, word or spelling errors. Time with Patient: Less than 30
[2023-02-09] MEDS: CHOLESTYRAMINE (WITH SUGAR) 4 GM PACKET PO SCH ×2 (13:37→17:04)
[2023-02-09 13:44] LABS: Glucose,Whole Blood 170 mg/dL (70-110)
[2023-02-09] MEDS: METOCLOPRAMIDE 5 MG/ML 2 ML VIAL IVP SCH ×3 (13:44→23:35)
--- NOTE | 2023-02-09 13:52 | P.PN ---
Subjective Progress Note Date: 02/09/23 This is a 67-year-old female with a known history of hypertension, hyperlipidemia, fibromyalgia, CVA/TIA, memory impairment, anxiety/depression/panic disorder, chronic and ongoing tobacco dependence. She was brought into the emergency room by her to start afternoon after finding her to be quite drowsy. He had trouble getting her up. She had trouble bearing her own weight. She was confused. Apparently she had taken extra Klonopin. Computed tomography scan of the brain revealed chronic small vessel ischemic changes without acute intracranial process. Chest x-ray revealed chronic changes but no acute pulmonary disease. Echocardiogram revealed preserved left ventricular systolic function. Severe right ventricular enlargement with moderate pulmonary hypertension. Abdominal ultrasound revealed no acute process. White count 18.2. Hemoglobin 8.3. Platelets 605. Sodium 129. Potassium 6.4. Bicarb 25. BUN 82. Creatinine 4.25. AST 4961. ALT 4711. Ammonia level XL. Creatinine kinase 471. BNP 11,700. Urine drug screen positive for opiates, oxycodone, tricyclic antidepressants. Initial arterial blood gases on 36% FiO2 revealed a P O2 of 38, pCO2 of 100 and a pH of 7.05. She was placed on BiPAP 15/5 and 32% FiO2 and follow-up blood gases revealed a pO2 of 56, pCO2 of 85 and a pH of 7.11. She is seen today in consultation in the emergency department. She is currently resting on a stretcher. Arousable. Not able to give much information. Follow-up arterial blood gases on 36% FiO2 revealed a pO2 of 69, pCO2 of 63 and a pH of 7.23. Patient was reevaluated today on 01/30/2023, patient remains on BiPAP, continues to be confused, she is arousable, but does not seem to be quite alert and oriented. In spite of being on BiPAP for the last 24 hours, repeat ABG on 40% FiO2 with IPAP of 16 and EPAP of 6 showed a pO2 of 56 E. CO2 74 and pH of 7.22 which is clearly a worsening ABG compared to the ABG noted yesterday. With worsening hypoxia worsening hypercapnia and worsening pH. Hence after evaluating the patient I recommended immediate transfer to the ICU and will continue BiPAP, we will check a follow-up chest x-ray, if the patient does not improve much, and we will continue diuretics, may have to consider intubating the patient and placement on mechanical ventilation. Chest x-ray this morning continues to show cardiomegaly and interstitial edema, doubt underlying pneumonia. WBC count today is 15.7 hemoglobin is 8.2 sodium is 130 potassium 5.8 BUN is 105 creatinine 4.41. Liver enzymes are worsening with worsening AST of over 1500, ALT was close to 5000s, CPK is 471 Procalcitonin is 0.77, CT of the abdomen and pelvis showed mild pancreatitis with colonic dilatation suggestive of colonic ileus. Patient was seen by general surgery on [facility] for her abnormal CT of the abdomen and pelvis and recommended mostly conservative measures Reevaluated today on 01/31/2023, patient was transferred to ICU yesterday, remains in the ICU, remains on BiPAP 15/45%. Overnight the patient was extremely agitated and restless, and kept pulling her BiPAP, hence she was placed on Precedex which is now at 1 mcg/kg/h. For her atrial fibrillation with RVR remains on Cardizem at 5 mg per hour. Patient remains on Zosyn she also remains on Lasix at 40 mg IV push every 8 hours. Chest x-ray is showing definite improvement. Follow-up ABG today on the BiPAP showed significant improvement compared to yesterday with improving oxygenation pO2 105 improving pCO2 down to 60 from 74 and improving pH from 7.22 to 7.34 liver enzymes are elevated but improving and malaise is elevated at 348 and lipase is 1070 chest x-ray is showing improvement in her interstitial edema but not fully resolved. The patient is seen today 02/01/2023 in follow-up in the intensive care unit. She is awake and alert in no acute distress. Sitting up in bed. She is curr ently off the BiPAP. She is maintaining good O2 saturations in the 90s on 4 L/m per nasal cannula. She is receiving normal saline at 20 ML's per hour. White count 14.7. Hemoglobin 7.6. Platelets 452. Sodium 135. Potassium 4.7. Bicarb 30. BUN 123. Creatinine 4.20. Glucose 107. Amylase 372. Lipase 593. She is currently in a -2.1 L balance. She remains on Lasix 60 mg every 8 hours. Continue bronchodilators and steroids. Anticoagulated with Eliquis. Antibiotics in the form of Zosyn. The patient is seen today 02/02/2023 in follow-up in the intensive care unit. She is sitting up in bed. Awake and alert in no acute distress. She is maintaining good O2 saturations in the 90s on 3 L/m per nasal cannula. She has normal saline at 20 ML's per hour. White count 12.9. Hemoglobin 8.1. Platelets 421. Sodium 135. Potassium 4.1. Bicarb 33. BUN 123. Creatinine 4.05. Glucose 142. Lipase 345. She is continued on bronchodilators and steroids. Anticoagulated with Eliquis. Antibiotics in the form of Zosyn. She remains on IV diuretics. Currently in a -1.7 L balance. The patient is seen today 02/03/2023 in follow-up in the intensive care unit. She has a regular medical floor overflow patient. She is currently sitting up in bed. Awake and alert in no acute distress. She is maintaining O2 saturation in the 90s on 3 L/m per nasal cannula. She remains quite weak. She is continued on DuoNeb inhalations, Pulmicort and performs inhalations, IV Solu- Medrol. She remains on antibiotics in the form of Zosyn. Anticoagulated with Eliquis. Remains on IV Lasix. Currently in a -1.3 L balance. Count 14.9. Hemoglobin 8.5. Platelets 413. Sodium 135. Potassium 4.4. Bicarb 36. BUN 118. Creatinine 3.74. Glucose 129. Lipase 267. The patient is seen today 02/04/2023 in follow-up in the intensive care unit. She is a regular medical floor overflow. She is resting comfortably in bed. Awake and alert in no acute distress. Maintaining good O2 saturations in the 90s on 2 L/m per nasal cannula. She does desaturate to 84% on room air. She has normal saline at 20 ML's per hour. She is continued on Lasix 60 mg IV every 12 hours. She remains on Symbicort and DuoNeb inhalations, prednisone taper. Anticoagulated with Eliquis. Remains on antibiotics in the form of Zosyn. She is currently in a -1.8 L balance. White count 19.0. Hemoglobin 8.8. Platelets 410. Sodium 136. Potassium 3.3. Bicarb 36. BUN 109. Creatinine 3.51. Glucose 143. Patient is seen today 02/05/2023 in follow-up in the intensive care unit. She is a regular medical floor overflow still. She is resting comfortably in bed. Awake and alert in no acute distress. Maintaining O2 saturations in the 90s on 2 L/m per nasal cannula. She remains on DuoNeb inhalations, Symbicort, prednisone taper. Anticoagulated with Eliquis. Continues on IV diuretics. Currently in a -1.5 L balance. White count 23.0. Hemoglobin 9.0. Platelets 374. Sodium 136. Potassium 3.7. Bicarb 37. BUN 104. Creatinine 2.73. Glucose 114. The patient is seen today 02/06/2023 in follow-up on the regular medical floor. She is sitting up in bed. Awake and alert in no acute distress. She is maintaining good O2 saturations in the 90s on 3 L/m per nasal cannula. No IV fluids. She is continued on Symbicort, DuoNeb inhalations, prednisone taper. She is on IV diuretics. Anticoagulated with Eliquis. Currently in a -1.6 L balance. White count 23.4. Hemoglobin 9.6. Platelets 320. Sodium 136. Potassium 3.4. Bicarb 39. BUN 91. Creatinine 2.48. Glucose 109. C-reactive protein 4.3. The patient is seen today 02/07/2023 in follow-up on the regular medical floor. She is resting comfortably in bed. Awake and alert in no acute distress. Maintaining O2 saturations in the 90s on 3 L/m per nasal cannula. She remains on DuoNeb inhalations, Symbicort, prednisone taper. Anticoagulated with Eliquis. Remains on oral diuretics. Continued on Diflucan. Computed tomography scan of the abdomen and pelvis revealed acute interstitial edematous pancreatitis. No organizing fluid collection at this time. The cultures revealed no growth. Blood sugar 109. Today's evaluation of 02/08/2023, I'm seeing the patient for a follow-up. I reviewed the records and the patient has improved considerably. I reviewed a series of blood gases has been done on the patient and the patient has shown steady improvement in her carbon dioxide level and a drop down to 60. Most recent pH was at 7.34. She is currently on 3 L of oxygen by nasal cannula. She is not using any form of noninvasive positive pressure ventilation. Respiratory failure is multifactorial including COPD sleep apnea and a combination of drugs that she takes which include MS Contin, Percocet, Flexeril, Klonopin, and she is also taking a sleeping medication. She remains on anticoagulation with Eliquis.The most recent blood work shows a white cell count of 25, hemoglobin of 8.4 and a platelet count of 228, BUN is at 60 with a creatinine of 1.9 and a sodium level is at 137 with a potassium level of 3.5. I noticed that the patient was in acute kidney injury and the creatinine continues to gradually improve as currently down to 1.9. On today's evaluation of 02/09/2023, the patient has essentially the same as compared to yesterday. Remains on oxygen at 2 L/m nasal cannula. No diarrhea. The patient has no nausea or vomiting or abdominal pain. The patient is post pancreatitis. The white cell count remains elevated. The patient remains on IV Zosyn. ID is on the case regarding ongoing leukocytosis. No signs of any respiratory distress. The patient's creatinine remains elevated at 2.0. This is essentially stable compared to yesterday. Sodium level is at 143 with a potassium level of 3.7, CRP level is at 4.3, LFTs show an AST of 27, ALT of 133 and alkaline phosphatase of 68. She is currently on 2 L of O2 nasal cannula with a pulse ox of 93%. She continues to have issues with chronic pain. Quite debilitated. She is in need for physical therapy and rehabilitation. Objective - Vital Signs Vital signs: Vital Signs Temp 98.1 F 02/09/23 07:35 Pulse 110 H 02/09/23 11:35 Resp 16 02/09/23 11:14 BP 122/77 02/09/23 11:35 Pulse Ox 93 L 02/09/23 11:35 FiO2 45 01/31/23 08:00 Intake & Output 02/08/23 02/09/23 02/09/23 18:59 06:59 18:59 Weight 102.2 kg Other: Voiding Method Bedside Commode Bedside Commode # Voids 2 1 # Bowel Movements 2 - Exam GENERAL EXAM: Alert, 67-year-old female, resting comfortably in bed, on 3 L nasal cannula, in no apparent distress. HEAD: Normocephalic. EYES: Normal reaction of pupils, equal size. NOSE: Clear with pink turbinates. THROAT: No erythema or exudates. NECK: No masses, no JVD. CHEST: No chest wall deformity. LUNGS: Equal air entry with bilateral end expiratory wheeze, few scattered rhonchi. CVS: S1 and S2 normal with no audible murmur, regular rhythm. ABDOMEN: No hepatosplenomegaly, normal bowel sounds, no guarding or rigidity. SPINE: No scoliosis or deformity SKIN: No rashes CENTRAL NERVOUS SYSTEM: No focal deficits, tone is normal in all 4 extremities. EXTREMITIES: There is no peripheral edema. No clubbing, no cyanosis. Peripheral pulses are intact. - Labs CBC & Chem 7: 02/09/23 06:18 02/09/23 06:18 Labs: Abnormal Lab Results - Last 24 Hours (Table) 02/08/23 02/08/23 02/08/23 Range/Units 12:16 18:04 20:13 WBC (4.50-10.00) X 10*3/uL Hgb (12.0-15.0) d/dL Hct (37.2-46.3) % MCV (80.0-97.0) FL MCH (27.0-32.0) pg MCHC (32.0-37.0) d/dL RDW (11.5-14.5) % Neutrophils # (1.80-7.70) X 10*3/uL Monocytes # (0.20-1.00) X 10*3/uL Anion Gap (4.00-12.00) mmol/L BUN (9.0-27.0) mg/dL Creatinine (0.6-1.5) mg/dL Est GFR (CKD-EPI) (>=60) BUN/Creatinine Ratio (12.00-20.00) Ratio Glucose (70-110) mg/dL POC Glucose (mg/dL) 154 H 177 H 153 H (70-110) mg/dL ALT (8-44) U/L C-Reactive Protein (0.00-0.80) mg/dL Total Protein (6.2-8.2) d/dL Albumin (3.8-4.9) d/dL Albumin/Globulin Ratio (1.60-3.17) Ratio 02/09/23 02/09/2323 Range/Units 06:18 06:18 07:24 WBC 26.37 H (4.50-10.00) X 10*3/uL Hgb 9.1 L (12.0-15.0) d/dL Hct 34.0 L (37.2-46.3) % MCV 78.3 L (80.0-97.0) FL MCH 21.0 L (27.0-32.0) pg MCHC 26.8 L (32.0-37.0) d/dL RDW 25.4 H (11.5-14.5) % Neutrophils # 23.67 H (1.80-7.70) X 10*3/uL Monocytes # 1.38 H (0.20-1.00) X 10*3/uL Anion Gap 16.90 H (4.00-12.00) mmol/L BUN 43.4 H (9.0-27.0) mg/dL Creatinine 2.0 H (0.6-1.5) mg/dL Est GFR (CKD-EPI) 27 L (>=60) BUN/Creatinine Ratio 21.70 H (12.00-20.00) Ratio Glucose 115 H (70-110) mg/dL POC Glucose (mg/dL) 122 H (70-110) mg/dL ALT 133 H (8-44) U/L C-Reactive Protein 4.30 H (0.00-0.80) mg/dL Total Protein 5.7 L (6.2-8.2) d/dL Albumin 3.4 L (3.8-4.9) d/dL Albumin/Globulin Ratio 1.48 L (1.60-3.17) Ratio Microbiology - Last 24 Hours (Table) 02/05/23 09:06 Blood Culture - Preliminary Blood Assessment and Plan Plan: Altered mental status secondary to hypercapnic respiratory failure secondary to possible extra Klonopin use as well as an acute exacerbation of diastolic congestive heart failure, this improved and the patient's mentation is back to normal. Hypercapnic respiratory failure was multifactorial including COPD/MYLENE//medication Acute hypoxemic and hypercapnic respiratory failure secondary to above improved and on 3 L cannula Severe pulmonary hypertension with evidence of right-sided heart failure, please refer to the echocardiogram. This could be related to chronic hypoxemia. Metabolic encephalopathy secondary to above, elevated ammonia level, recovered Leukocytosis Anemia Acute kidney injury, current creatinine is improving is down to 1.9 Hyperkalemia Acute transaminitis trending down Acute pancreatitis, lipase improved and at 267. Computed tomography scan of the abdomen and pelvis revealed acute interstitial edematous pancreatitis. No organizing fluid collection at this time. Troponin leak Urine drug screen is positive for opiates, oxycodone and tricyclic antidepressants History of fibromyalgia History of anxiety/depression/panic disorder Hyperlipidemia Hypertension Memory impairment Chronic and ongoing tobacco dependence Chronic atrial fibrillation anticoagulant with Eliquis Diarrhea, stool for C. diff has been negative Plan: The patient will be kept on 2 L of O2 nasal cannula and she has home O2 Continue diuretics monitor renal function, the patient is receiving Lasix 40 mg twice a day by mouth Incentive spirometer Anticoagulants with Eliquis bronchodilators in the form of DuoNeb updrafts and Symbicort as maintenance Outpatient sleep study at the later stage Avoid any form of excessive intake of narcotics and benzodiazepines. The chest x-ray was reviewed from today. It shows cardiomegaly. No evidence of any pneumonia at this point Zosyn can be discontinued, and the white cell count is still elevated. Will be related to reactive leukocytosis post pancreatitis. Doubt any intra-abdominal abscesses. Monitor diarrhea, currently inactive in his stool for C. diff has been negative We'll continue to follow
--- NOTE | 2023-02-09 15:32 | P.PN ---
Subjective Progress Note Date: 02/09/23 Patient continues to be closely monitored in the intensive care unit. Remains on IV Lasix 60 mg every 12 hours patient has diuresed over 3.2 L in the last 24 hours. Discontinue significant lower extremity edema patient states that this is improving. Nephrology following closely patient's BUN today is 23, creatinine 4.05 no decision yet whether patient will begin renal replacement therapy or not. Lipase is improved today down to 345. Additionally the white count is improved to 12.9. Hemoglobin stable at 8.1 no signs of acute bleeding. Patient additionally continues on IV Solu-Medrol high-dose for the acute COPD exacerbation remains on 5 L of oxygen there is a discrepancy whether patient ac tually uses home oxygen or not. It is documented in the medical records the patient is on 2 L of home oxygen however when asked patient does deny and states that she has never worn oxygen at home even for short period of time. Patient has had 3 loose bowel movements today, would recommend to change lactulose to as needed titration and to be given until patient has 2-3 bowel movements per day. Most recent ammonia level has normalized and currently 14. Patient continues on IV Zosyn empirically. She remains in atrial fibrillation with rapid ventricular rate in the low 100s. Patient has not gotten up out of bed physical therapy is consulted likely patient will require subacute rehab on discharge. Patient was under the impression that she was being discharged home today. 02/03/2023 Patient remains in the intensive care unit. Mentation improving. PT/OT has been consulted and recommend subacute rehab on discharge. Patient remains on IV lasix the dose was cut back yesterday the creatinine has improved today at 3.74. BUN 118. Lipase has normalized. Patient is tolerating diet. Remains on IV zosyn. And on oral prednisone. Metoprolol was increased to TID and heart rate is slowly coming down. 02/04/2023 Patient remains in intensive care unit she has been downgraded to a medical surgical bed with telemetry monitoring she is pending a bed placement. She is currently alert 3 working physical therapy sitting up in the chair today. Diet as upgraded with no further complaints of abdominal pain. Her lipase is normalized. Metoprolol was increased and heart rate is now resting between 100 and 103. Chest x-ray this morning shows pulmonary venous congestion and cardiomegaly persisting although her to improve there is a suspected small left- sided subpulmonic effusion. White count is 19.0. Hemoglobin stable at 8.8. Sodium of 136, potassium 3.3., BUN 109, creatinine 3.51. 02/05/2023 Patient is evaluated today remains in ICU as a med surg hold. Patient remains on oxygen. No shortness of breath. She has been working with PT was up in the chair yesterday. Lower extremity edema is slightly better she has compression stockings on and remains on IV lasix at 60 mg Q12h. Patient apparently has some excoriation in her buttock and possibly a stage 2 ulcer on her buttock as well. Patient states the nursing staff put barrier cream on for her. White count today up to 23.0, hemoglobin 9.0. Sodium 136, potassium 3.7. Creatinine 2.73. 02/06/2023 Patient is evaluated today on a medical floor. She reports no shortness of breath she remains on 2 L of oxygen and she does her 2 L as needed at home. She is working physical therapy however she needs encouragement to be up in the c hair for meals and also to use the bedside commode. Patient has not wanted to take her IV Lasix this morning as it does make her urinate frequently. She remains on 60 mg every 12 hours of IV Lasix. White count remains elevated at 23.4 patient was started on oral Diflucan and will be considered for an abdominal pelvis CT. Her creatinine continues to improve today it is 2.48. 02/07/2023 Patient is evaluated today on the medical floor. Patient remains on IV lasix 60 mg Q12h. Had multiple episodes of diarrhea overnight, noted that patient was getting lactulose for elevated ammonia level. C.Dif ordered and pending. Creatinine continues to improve. Patient needs encouragement to get up out of bed and to sit up in the chair for meals. Blood culture remains negative. 02/08/2023 Patient is seen and evaluated and follow-up with multiple medical consultations following including nephrology, cardiology, infectious disease, pulmonary. WBC remains elevated at 25 with infectious disease following and is continuing on Zosyn. Blood cultures remain negative. Patient is continue on oral steroids along with DuoNeb treatments and some of the elevated white count may be multifactorial as patient is afebrile. Patient continues on 2-3 L via nasal cannula and continues with significant weakness. Recommend physical therapy daily and patient will likely need ECF. Patient kidney functions are trending down and nephrology following. Patient has had prolonged hospitalization and again will need ECF on discharge. Patient having loose stools and C. diff was negative and will discontinue lactulose and continue with Questran twice daily as patient continues to report loose stools. 02/09/2023 Patient is seen in follow-up today with multiple medical consultations following. Patient is maintained on IV antibiotics and cultures have thus far been negative. White count is 26.37 with no active signs of infection and likely reactive secondary to steroid use. Patient's kidney functions are somewhat stable at 2.0 with a BUN of 43.4 and nephrology following continued on Lasix which is being transitioned to oral. Patient with significant weakness and did have some episodes of nausea last night with no vomiting started on clear liquids although asking for advance in diet and will transition to low fiber and monitor closely. Continue with Accu-Cheks before meals and at bedtime and will continue sliding scale. Patient with significant weakness will be going to ECF and going to [facility] on the [place]. Case management following and has requested for insurance authorization. Continue with anti-nausea medications and encouraged to increase activity as tolerated and oral intake. Review of Systems Constitutional: Reports fatigue, denied any fever. Cardio vascular: denied any chest pain, palpitations Gastrointestinal: denied any nausea, vomiting. Reports diarrhea. Pulmonary: Denied any shortness of breath cough Neurologic denied any new focal deficits, Reports significant weakness All inpatient medications were reviewed and appropriate changes in these medications as dictated in the interval history and assessment and plan. Active Medications Acetaminophen (Acetaminophen Tab 325 Mg Tab) 650 mg PO Q4HR PRN PRN Reason: Mild Pain or Fever > 100.5 Last Admin: 02/09/23 08:44 Dose: 650 mg Albuterol/Ipratropium (Ipratropium-Albuterol 3 Ml Neb) 3 ml INHALATION RT-QID [facility] Last Admin: 02/09/23 14:44 Dose: Not Given Albuterol/Ipratropium (Ipratropium-Albuterol 3 Ml Neb) 3 ml INHALATION RT-Q2H PRN PRN Reason: Shortness Of Breath Or Wheezing Amiodarone HCl (Amiodarone 100 Mg Tab) 100 mg PO DAILY [facility] Last Admin: 02/09/23 11:17 Dose: 100 mg Apixaban (Apixaban 2.5 Mg Tablet) 2.5 mg PO BID [facility]; Protocol Last Admin: 02/09/23 11:18 Dose: 2.5 mg Budesonide/Formoterol Fumarate (Symbicort 160-4.5 Mcg Inhaler) 2 puff INHALATIO N RT-BID [facility] Last Admin: 02/09/23 07:21 Dose: Not Given Cholestyramine Resin (Cholestyramine (With Sugar) 4 Gm Packet) 4 gm PO BID@1000,1800 [facility] Last Admin: 02/09/23 13:37 Dose: 4 gm Dapagliflozin (Dapagliflozin Propanediol 10 Mg Tablet) 10 mg PO DAILY [facility] Last Admin: 02/09/23 11:18 Dose: 10 mg Darbepoetin Jignesh (Darbepoetin Jignesh 40 Mcg/0.4 Ml Syringe) 40 mcg SQ Q7D [facility] Last Admin: 02/04/23 12:25 Dose: 40 mcg Dextrose/Water (Dextrose 50% Syringe 50 Ml) 25 ml IVP PER PROTOCOL PRN; Protocol PRN Reason: Hypoglycemia Dextrose/Water (Dextrose 50% Syringe 50 Ml) 50 ml IVP PER PROTOCOL PRN; Protocol PRN Reason: Hypoglycemia Duloxetine HCl (Duloxetine Hcl 60 Mg Capsule.Dr) 120 mg PO DAILY [facility] Last Admin: 02/09/23 11:20 Dose: 120 mg Fluconazole (Fluconazole 100 Mg Tab) 100 mg PO DAILY [facility]; Protocol Last Admin: 02/09/23 11:20 Dose: 100 mg Furosemide (Furosemide 40 Mg Tab) 40 mg PO BID@0900,1600 [facility] Piperacillin Sod/Tazobactam (Sod 3.375 gm/ Sodium Chloride) 100 mls @ 25 mls/hr IVPB Q8HR [facility]; Protocol Last Admin: 02/09/23 09:19 Dose: 25 mls/hr Insulin Aspart (Insulin Aspart (Novolog) 100 Unit/Ml Vial) 0 unit SQ ACHS [facility]; Protocol Last Admin: 02/09/23 13:44 Dose: 1 unit Loratadine (Loratadine 10 Mg Tab) 5 mg PO DAILY [facility] Last Admin: 02/09/23 11:21 Dose: 5 mg Metoclopramide HCl (Metoclopramide 5 Mg/Ml 2 Ml Vial) 5 mg IVP Q6HR [facility] Last Admin: 02/09/23 13:44 Dose: 5 mg Metoprolol Succinate (Metoprolol Succinate (Er) 100 Mg Tab.Er.24h) 100 mg PO BID [facility] Last Admin: 02/09/23 11:23 Dose: 100 mg Metoprolol Succinate (Metoprolol Succinate (Er) 25 Mg Tab.Er.24h) 25 mg PO BID [facility] Last Admin: 02/09/23 11:23 Dose: 25 mg Miscellaneous Information (Potassium Replacement Protocol 1 Each Misc) 1 each MISCELLANE DAILY PRN; Protocol PRN Reason: Per Protocol Naloxone HCl (Naloxone 0.4 Mg/Ml 1 Ml Vial) 0.2 mg IVP Q2M PRN PRN Reason: Opioid Reversal Ondansetron HCl (Ondansetron 4 Mg/2 Ml Vial) 4 mg IVP Q6HR PRN PRN Reason: Nausea And Vomiting Last Admin: 02/08/23 19:41 Dose: 4 mg Pantoprazole Sodium (Pantoprazole 40 Mg/10 Ml Vial) 40 mg IVP BID [facility] Last Admin: 02/09/23 09:19 Dose: 40 mg Petrolatum (Zinc Oxide Paste (Z-Guard) 1 Applic Applic) 1 applic TOPICAL DAILY PRN PRN Reason: Wound Healing Prednisone (Prednisone 10 Mg Tab) 30 mg PO DAILY [facility] Last Admin: 02/09/23 11:24 Dose: 30 mg Sodium Chloride (Sodium Chloride 0.65% Nasal [place] 44 Ml Btl) 2 spray NASAL QID PRN PRN Reason: Dry Nasal Passages Spironolactone (Spironolactone 25 Mg Tab) 25 mg PO DAILY [facility] Last Admin: 02/09/23 11:24 Dose: 25 mg PHYSICAL EXAMINATION: GENERAL: The patient is alert and oriented x2-3 Well developed, well nourished. Obese. On 2L of oxygen via nasal cannula. HEENT: Pupils are round and equally reacting to light. EOMI. No scleral icterus. No conjunctival pallor. Normocephalic, atraumatic. No pharyngeal erythema. No thyromegaly. CARDIOVASCULAR: S1 and S2 muffled PULMONARY: Diminished breath sounds bilaterally with some scattered rhonchi noted ABDOMEN: Soft, obese. nontender, nondistended, normoactive bowel sounds. No palpable organomegaly. MUSCULOSKELETAL: No joint swelling or deformity. EXTREMITIES: No cyanosis, clubbing, +1 lower extremity pitting edema showing some improvement NEUROLOGICAL: Gross neurological examination did not reveal any focal deficits. Diffuse generalized weakness. SKIN: No rashes. Assessment: Acute hypoxemic hypercapnic respiratory failure secondary to acute COPD exa cerbation currently 2 L of oxygen she required BiPAP with an FiO2 of 45% on admission. Altered mental status secondary to acute metabolic and toxic encephalopathy secondary to acute renal injury and hypercapnia currently improved and alert 3 Mild acute pancreatitis per her CT scan lipase has normalized. Acute renal failure with hyperkalemia due to ATN and hypotension Hypokalemia due to diuresis. Improving Acute diastolic heart failure with moderate pulmonary hypertension Chronic hypoxic respiratory failure on 2L as needed at home per patient she is unsure why. Diabetes Mellitus type 2 with hemoglobin A1C 6.6. Transamnitis likely due to volume overload; improving. Chronic Atrial fibrillation with rapid ventricular rate HR in the 100s. Currently rate controlled Anemia, microcytic iron deficiency on IV ferrlecit Possible colitis with ileus, improved History of CVA/TIA Hypertension Hyperlipidemia History of memory impairment Chronic neck and back pain status post cervical fusion surgery. Stage II right buttock ulceration hospital-acquired Anxiety depression and panic disorder, not in active tissue GI prophylaxis on protonix BID DVT prophylaxis on eliquis 2.5 BID renal dosing Full Code Plan: Multiple medical consultations following and white count remains elevated, multifactorial possibly secondary to steroid-induced and Zosyn being resumed and patient with infectious disease following. C. diff was negative and is maintained on Questran Gen. surgery following as there are no GI services available for pancreatitis. Ileus is resolved and patient is having multiple bowel movements and C. diff testing was negative diet has been advanced and tolerating. Patient did have some nausea and was bumped back to clear liquids overnight and started on Zofran will add Reglan 3 times a day with meals and slowly advance to low fiber as tolerated IV Lasix transitioned oral Lasix with cardiology following Patient is encouraged to get up out of bed and ambulate as well as up in the chair for meals. PT/OT therapy to follow daily and recommended rehab and case management following. Plan is for [facility] and will require insurance authorization. Insurance authorization submitted and pending at this time. Case management is following Will follow-up on repeat labs in a.m. due to multiple complex medical issues, prognosis is guarded Possible discharge in 24 hours The impression and plan of care has been dictated by Giselle Rapp, Nurse Practitioner as directed. Dr. Jun MD I have performed a history and examination and MDM of this patient, discussed the same with the dictator, and agree with the dictator's assessment and plan as written ,documented as a scribe. Based on total visit time, I have performed more than 50% of the visit. Objective - Vital Signs Vital signs: Vital Signs Temp 98.1 F 02/09/23 07:35 Pulse 105 H 02/09/23 07:35 Resp 20 02/09/23 07:35 BP 147/103 02/09/23 07:35 Pulse Ox 93 L 02/09/23 07:35 FiO2 45 01/31/23 08:00 Intake & Output 02/08/23 02/09/23 02/09/23 18:59 06:59 18:59 Weight 102.2 kg Other: Voiding Method Bedside Commode Bedside Commode # Voids 2 1 # Bowel Movements 2 - Labs CBC & Chem 7: 02/09/23 06:18 02/09/23 06:18 Labs: Abnormal Lab Results - Last 24 Hours (Table) 02/08/23 02/08/23 02/08/23 Range/Units 05:26 05:26 05:26 WBC 25.77 H (4.50-10.00) X 10*3/uL RBC 4.09 L (4.10-5.20) X 10*6/uL Hgb 8.4 L (12.0-15.0) d/dL Hct 31.4 L (37.2-46.3) % MCV 76.8 L (80.0-97.0) FL MCH 20.5 L (27.0-32.0) pg MCHC 26.8 L (32.0-37.0) d/dL RDW 24.7 H (11.5-14.5) % Neutrophils # 22.86 H (1.80-7.70) X 10*3/uL Monocytes # 1.46 H (0.20-1.00) X 10*3/uL Hypochromasia (manual) 2+ A Anisocytosis (manual) 2+ A Microcytosis (manual) 2+ A Chloride 95 L (98-107) mmol/L Carbon Dioxide 34 H (22-30) mmol/L BUN 60 H (7-17) mg/dL Creatinine 1.91 H (0.52-1.04) mg/dL Glucose 115 H (74-99) mg/dL POC Glucose (mg/dL) (70-110) mg/dL C-Reactive Protein 3.90 H (0.00-0.80) mg/dL 02/08/23 02/08/23 02/08/23 Range/Units 12:16 18:04 20:13 WBC (4.50-10.00) X 10*3/uL RBC (4.10-5.20) X 10*6/uL Hgb (12.0-15.0) d/dL Hct (37.2-46.3) % MCV (80.0-97.0) FL MCH (27.0-32.0) pg MCHC (32.0-37.0) d/dL RDW (11.5-14.5) % Neutrophils # (1.80-7.70) X 10*3/uL Monocytes # (0.20-1.00) X 10*3/uL Hypochromasia (manual) Anisocytosis (manual) Microcytosis (manual) Chloride (98-107) mmol/L Carbon Dioxide (22-30) mmol/L BUN (7-17) mg/dL Creatinine (0.52-1.04) mg/dL Glucose (74-99) mg/dL POC Glucose (mg/dL) 154 H 177 H 153 H (70-110) mg/dL C-Reactive Protein (0.00-0.80) mg/dL 02/09/23 Range/Units 07:24 WBC (4.50-10.00) X 10*3/uL RBC (4.10-5.20) X 10*6/uL Hgb (12.0-15.0) d/dL Hct (37.2-46.3) % MCV (80.0-97.0) FL MCH (27.0-32.0) pg MCHC (32.0-37.0) d/dL RDW (11.5-14.5) % Neutrophils # (1.80-7.70) X 10*3/uL Monocytes # (0.20-1.00) X 10*3/uL Hypochromasia (manual) Anisocytosis (manual) Microcytosis (manual) Chloride (98-107) mmol/L Carbon Dioxide (22-30) mmol/L BUN (7-17) mg/dL Creatinine (0.52-1.04) mg/dL Glucose (74-99) mg/dL POC Glucose (mg/dL) 122 H (70-110) mg/dL C-Reactive Protein (0.00-0.80) mg/dL Microbiology - Last 24 Hours (Table) 02/05/23 09:06 Blood Culture - Preliminary Blood
[2023-02-09] MEDS: FUROSEMIDE 40 MG TAB PO SCH (17:04)
[2023-02-09 17:18] LABS: Glucose,Whole Blood 177 mg/dL (70-110)
[2023-02-09 20:14] LABS: Glucose,Whole Blood 167 mg/dL (70-110)
[2023-02-10] MEDS: ACETAMINOPHEN TAB 325 MG TAB PO PRN ×5 (02:26→21:17)
[2023-02-10] MEDS: METOCLOPRAMIDE 5 MG/ML 2 ML VIAL IVP SCH ×3 (05:53→19:03)
[2023-02-10] MEDS: PIPERACILLIN-TAZOBACTAM 3.375 GM in SODIUM CHLORIDE 0.9% 100 ML IVPB SCH (07:45)
[2023-02-10] MEDS: PANTOPRAZOLE 40 MG/10 ML VIAL IVP SCH ×2 (07:52→21:10)
[2023-02-10] MEDS: IPRATROPIUM-ALBUTEROL 3 ML NEB INHALATION SCH ×4 (07:53→19:28)
[2023-02-10] MEDS: SYMBICORT 160-4.5 MCG INHALER INHALATION SCH ×2 (07:53→19:28)
[2023-02-10] MEDS: AMIODARONE 100 MG TAB PO SCH (08:00)
[2023-02-10] MEDS: METOPROLOL SUCCINATE (ER) 100 MG TAB.ER.24H PO SCH ×2 (08:01→21:10)
[2023-02-10] MEDS: APIXABAN 2.5 MG TABLET PO SCH ×2 (08:01→21:10)
[2023-02-10] MEDS: FLUCONAZOLE 100 MG TAB PO SCH (08:01)
[2023-02-10] MEDS: FUROSEMIDE 40 MG TAB PO SCH ×2 (08:01→16:04)
[2023-02-10] MEDS: DULoxetine HCL 60 MG CAPSULE.DR PO SCH (08:01)
[2023-02-10] MEDS: DAPAGLIFLOZIN PROPANEDIOL 10 MG TABLET PO SCH (08:01)
[2023-02-10] MEDS: predniSONE 10 MG TAB PO SCH (08:01)
[2023-02-10] MEDS: LORATADINE 10 MG TAB PO SCH (08:02)
[2023-02-10] MEDS: METOPROLOL SUCCINATE (ER) 25 MG TAB.ER.24H PO SCH ×2 (08:02→21:10)
[2023-02-10] MEDS: SPIRONOLACTONE 25 MG TAB PO SCH (08:02)
[2023-02-10 08:11] LABS: Glucose,Whole Blood 115 mg/dL (70-110)
[2023-02-10] MEDS: INSULIN ASPART (NovoLOG) 100 UNIT/ML VIAL SQ SCH ×4 (09:09→21:17)
--- NOTE | 2023-02-10 10:20 | P.PN ---
Subjective HISTORY OF PRESENT ILLNESS: 02/07/2023 Patient is stable from cardiac vessel standpoint. She is having good diuresis with IV Lasix 60 mg twice a day. Her lower swelling has improved significantly. She is tolerating oral diet. Rate controlled atrial fibrillation on telemetry 02/08/2023 Patient examined this morning. She is sitting in the chair. She denies chest pain or pressure. Denies SOB. Remains on oral lasix. BMP from this morning is currently pending. Patient is currently not on telemetry. Documented heart rates 100-120. Blood pressure stable. 02/09/2023 Patient examined this morning. She is sitting up in the chair. Patient denies chest pain or pressure. She denies shortness of breath. Blood pressure stable. Telemetry reveals atrial fibrillation. Heart rate is in the low 100s. 02/10/2023 Patient examined this morning at the bedside. Patient denies chest pain or pressure. She currently denies shortness of breath. Vital signs are stable. Telemetry reveals atrial fibrillation with a heart rate in the low 100s. She continues to report diarrhea. C. diff is negative. She is receiving antibiotics per infectious disease. WBC yesterday 26.37. PHYSICAL EXAM: VITAL SIGNS: Reviewed. GENERAL: Well-developed in no acute distress. NECK: Supple. No JVD or thyromegaly LUNGS: Respirations even and unlabored. Lungs diminished bilaterally. HEART: Irregular rate and rhythm. S1 and S2 heard. EXTREMITIES: Normal range of motion. No clubbing or cyanosis. Peripheral pulses intact. Bilateral lower extremity edema present, improved. ASSESSMENT: Acute hypoxic and hypercapnic respiratory failure Acute COPD exacerbation Leukocytosis Acute heart failure with preserved ejection fraction Permanent atrial fibrillation Pancreatitis with pseudocyst Acute kidney injury Former nicotine dependence PLAN: Continue current cardiac medications Will consider right-sided heart catheterization on an outpatient basis secondary to significant right ventricular dilatation with concerns of possible increased pulmonary pressures Continue antibiotics per infectious disease Patient is currently stable from a cardiac perspective Further recommendations pending patient's course Nurse practitioner note has been reviewed by physician. Signing provider agrees with the documented findings, assessment, and plan of care. Objective - Vital Signs Vital signs: Vital Signs Temp 97.6 F 02/10/23 08:00 Pulse 118 H 02/10/23 08:00 Resp 20 02/10/23 08:00 BP 150/52 02/10/23 08:00 Pulse Ox 93 L 02/10/23 08:00 FiO2 45 01/31/23 08:00 Intake & Output 02/09/23 02/10/23 02/10/23 18:59 06:59 18:59 Intake Total 200 640 540 Balance 200 640 540 Intake: IV 80 0.9 NS 80 Intake, IV Titration 200 200 Amount Piperacillin-Tazobactam 3 200 200 .375 gm In Sodium Chloride 0.9% 100 ml @ 25 mls/hr IVPB Q8HR [facility] Rx# :[id number] Oral 360 540 Other: Voiding Method Bedside Commode # Voids 1 - Labs CBC & Chem 7: 02/09/23 06:18 02/09/23 06:18 Labs: Abnormal Lab Results - Last 24 Hours (Table) 02/09/23 02/09/23 02/09/23 Range/Units 06:18 06:18 13:42 WBC 26.37 H (4.50-10.00) X 10*3/uL Hgb 9.1 L (12.0-15.0) d/dL Hct 34.0 L (37.2-46.3) % MCV 78.3 L (80.0-97.0) FL MCH 21.0 L (27.0-32.0) pg MCHC 26.8 L (32.0-37.0) d/dL RDW 25.4 H (11.5-14.5) % Neutrophils # 23.67 H (1.80-7.70) X 10*3/uL Monocytes # 1.38 H (0.20-1.00) X 10*3/uL Anion Gap 16.90 H (4.00-12.00) mmol/L BUN 43.4 H (9.0-27.0) mg/dL Creatinine 2.0 H (0.6-1.5) mg/dL Est GFR (CKD-EPI) 27 L (>=60) BUN/Creatinine Ratio 21.70 H (12.00-20.00) Ratio Glucose 115 H (70-110) mg/dL POC Glucose (mg/dL) 170 H (70-110) mg/dL ALT 133 H (8-44) U/L C-Reactive Protein 4.30 H (0.00-0.80) mg/dL Total Protein 5.7 L (6.2-8.2) d/dL Albumin 3.4 L (3.8-4.9) d/dL Albumin/Globulin Ratio 1.48 L (1.60-3.17) Ratio 02/09/23 02/09/23 02/10/23 Range/Units 17:16 20:12 08:09 WBC (4.50-10.00) X 10*3/uL Hgb (12.0-15.0) d/dL Hct (37.2-46.3) % MCV (80.0-97.0) FL MCH (27.0-32.0) pg MCHC (32.0-37.0) d/dL RDW (11.5-14.5) % Neutrophils # (1.80-7.70) X 10*3/uL Monocytes # (0.20-1.00) X 10*3/uL Anion Gap (4.00-12.00) mmol/L BUN (9.0-27.0) mg/dL Creatinine (0.6-1.5) mg/dL Est GFR (CKD-EPI) (>=60) BUN/Creatinine Ratio (12.00-20.00) Ratio Glucose (70-110) mg/dL POC Glucose (mg/dL) 177 H 167 H 115 H (70-110) mg/dL ALT (8-44) U/L C-Reactive Protein (0.00-0.80) mg/dL Total Protein (6.2-8.2) d/dL Albumin (3.8-4.9) d/dL Albumin/Globulin Ratio (1.60-3.17) Ratio
[2023-02-10] MEDS: CHOLESTYRAMINE (WITH SUGAR) 4 GM PACKET PO SCH ×2 (11:31→19:03)
[2023-02-10] MEDS: VANCOMYCIN 125 MG CAPSULE PO SCH ×3 (12:10→21:10)
[2023-02-10 12:27] LABS: Glucose,Whole Blood 139 mg/dL (70-110)
[2023-02-10 13:18] LABS: Anisocytosis Moderate; Basophils % (A) 0 %; Eosinophils % (A) 0 %; HCT 32.3 % (34.0-46.0); HGB 9.2 gm/dL (11.4-16.0); Hypochromasia Marked; Lymphocytes # (A) 0.4 k/uL (1.0-4.8); Lymphocytes % (A) 2 %; MCH 21.9 pg (25.0-35.0); MCHC 28.4 g/dL (31.0-37.0); Mean Platelet Volume 9.8; Microcytosis Moderate; Monocytes # (A) 0.5 k/uL (0-1.0); Monocytes % (A) 2 %; Neutrophils # (A) 19.9 k/uL (1.3-7.7); Neutrophils % (A) 96 %; Platelet Count 182 k/uL (150-450); RBC 4.19 m/uL (3.80-5.40); RDW 22.1 % (11.5-15.5); WBC 20.9 k/uL (3.8-10.6)
--- NOTE | 2023-02-10 15:36 | P.PN ---
Subjective Progress Note Date: 02/10/23 This is a 67-year-old female with a known history of hypertension, hyperlipidemia, fibromyalgia, CVA/TIA, memory impairment, anxiety/depression/panic disorder, chronic and ongoing tobacco dependence. She was brought into the emergency room by her to start afternoon after finding her to be quite drowsy. He had trouble getting her up. She had trouble bearing her own weight. She was confused. Apparently she had taken extra Klonopin. Computed tomography scan of the brain revealed chronic small vessel ischemic changes without acute intracranial process. Chest x-ray revealed chronic changes but no acute pulmonary disease. Echocardiogram revealed preserved left ventricular systolic function. Severe right ventricular enlargement with moderate pulmonary hypertension. Abdominal ultrasound revealed no acute process. White count 18.2. Hemoglobin 8.3. Platelets 605. Sodium 129. Potassium 6.4. Bicarb 25. BUN 82. Creatinine 4.25. AST 4961. ALT 4711. Ammonia level XL. Creatinine kinase 471. BNP 11,700. Urine drug screen positive for opiates, oxycodone, tricyclic antidepressants. Initial arterial blood gases on 36% FiO2 revealed a P O2 of 38, pCO2 of 100 and a pH of 7.05. She was placed on BiPAP 15/5 and 32% FiO2 and follow-up blood gases revealed a pO2 of 56, pCO2 of 85 and a pH of 7.11. She is seen today in consultation in the emergency department. She is currently resting on a stretcher. Arousable. Not able to give much information. Follow-up arterial blood gases on 36% FiO2 revealed a pO2 of 69, pCO2 of 63 and a pH of 7.23. Patient was reevaluated today on 01/30/2023, patient remains on BiPAP, continues to be confused, she is arousable, but does not seem to be quite alert and oriented. In spite of being on BiPAP for the last 24 hours, repeat ABG on 40% FiO2 with IPAP of 16 and EPAP of 6 showed a pO2 of 56 E. CO2 74 and pH of 7.22 which is clearly a worsening ABG compared to the ABG noted yesterday. With worsening hypoxia worsening hypercapnia and worsening pH. Hence after evaluating the patient I recommended immediate transfer to the ICU and will continue BiPAP, we will check a follow-up chest x-ray, if the patient does not improve much, and we will continue diuretics, may have to consider intubating the patient and placement on mechanical ventilation. Chest x-ray this morning continues to show cardiomegaly and interstitial edema, doubt underlying pneumonia. WBC count today is 15.7 hemoglobin is 8.2 sodium is 130 potassium 5.8 BUN is 105 creatinine 4.41. Liver enzymes are worsening with worsening AST of over 1500, ALT was close to 5000s, CPK is 471 Procalcitonin is 0.77, CT of the abdomen and pelvis showed mild pancreatitis with colonic dilatation suggestive of colonic ileus. Patient was seen by general surgery on [place] for her abnormal CT of the abdomen and pelvis and recommended mostly conservative measures Reevaluated today on 01/31/2023, patient was transferred to ICU yesterday, remains in the ICU, remains on BiPAP 15/45%. Overnight the patient was extremely agitated and restless, and kept pulling her BiPAP, hence she was placed on Precedex which is now at 1 mcg/kg/h. For her atrial fibrillation with RVR remains on Cardizem at 5 mg per hour. Patient remains on Zosyn she also remains on Lasix at 40 mg IV push every 8 hours. Chest x-ray is showing definite improvement. Follow-up ABG today on the BiPAP showed significant improvement compared to yesterday with improving oxygenation pO2 105 improving pCO2 down to 60 from 74 and improving pH from 7.22 to 7.34 liver enzymes are elevated but improving and malaise is elevated at 348 and lipase is 1070 chest x-ray is showing improvement in her interstitial edema but not fully resolved. The patient is seen today 02/01/2023 in follow-up in the intensive care unit. She is awake and alert in no acute distress. Sitting up in bed. She is curr ently off the BiPAP. She is maintaining good O2 saturations in the 90s on 4 L/m per nasal cannula. She is receiving normal saline at 20 ML's per hour. White count 14.7. Hemoglobin 7.6. Platelets 452. Sodium 135. Potassium 4.7. Bicarb 30. BUN 123. Creatinine 4.20. Glucose 107. Amylase 372. Lipase 593. She is currently in a -2.1 L balance. She remains on Lasix 60 mg every 8 hours. Continue bronchodilators and steroids. Anticoagulated with Eliquis. Antibiotics in the form of Zosyn. The patient is seen today 02/02/2023 in follow-up in the intensive care unit. She is sitting up in bed. Awake and alert in no acute distress. She is maintaining good O2 saturations in the 90s on 3 L/m per nasal cannula. She has normal saline at 20 ML's per hour. White count 12.9. Hemoglobin 8.1. Platelets 421. Sodium 135. Potassium 4.1. Bicarb 33. BUN 123. Creatinine 4.05. Glucose 142. Lipase 345. She is continued on bronchodilators and steroids. Anticoagulated with Eliquis. Antibiotics in the form of Zosyn. She remains on IV diuretics. Currently in a -1.7 L balance. The patient is seen today 02/03/2023 in follow-up in the intensive care unit. She has a regular medical floor overflow patient. She is currently sitting up in bed. Awake and alert in no acute distress. She is maintaining O2 saturation in the 90s on 3 L/m per nasal cannula. She remains quite weak. She is continued on DuoNeb inhalations, Pulmicort and performs inhalations, IV Solu- Medrol. She remains on antibiotics in the form of Zosyn. Anticoagulated with Eliquis. Remains on IV Lasix. Currently in a -1.3 L balance. Count 14.9. Hemoglobin 8.5. Platelets 413. Sodium 135. Potassium 4.4. Bicarb 36. BUN 118. Creatinine 3.74. Glucose 129. Lipase 267. The patient is seen today 02/04/2023 in follow-up in the intensive care unit. She is a regular medical floor overflow. She is resting comfortably in bed. Awake and alert in no acute distress. Maintaining good O2 saturations in the 90s on 2 L/m per nasal cannula. She does desaturate to 84% on room air. She has normal saline at 20 ML's per hour. She is continued on Lasix 60 mg IV every 12 hours. She remains on Symbicort and DuoNeb inhalations, prednisone taper. Anticoagulated with Eliquis. Remains on antibiotics in the form of Zosyn. She is currently in a -1.8 L balance. White count 19.0. Hemoglobin 8.8. Platelets 410. Sodium 136. Potassium 3.3. Bicarb 36. BUN 109. Creatinine 3.51. Glucose 143. Patient is seen today 02/05/2023 in follow-up in the intensive care unit. She is a regular medical floor overflow still. She is resting comfortably in bed. Awake and alert in no acute distress. Maintaining O2 saturations in the 90s on 2 L/m per nasal cannula. She remains on DuoNeb inhalations, Symbicort, prednisone taper. Anticoagulated with Eliquis. Continues on IV diuretics. Currently in a -1.5 L balance. White count 23.0. Hemoglobin 9.0. Platelets 374. Sodium 136. Potassium 3.7. Bicarb 37. BUN 104. Creatinine 2.73. Glucose 114. The patient is seen today 02/06/2023 in follow-up on the regular medical floor. She is sitting up in bed. Awake and alert in no acute distress. She is maintaining good O2 saturations in the 90s on 3 L/m per nasal cannula. No IV fluids. She is continued on Symbicort, DuoNeb inhalations, prednisone taper. She is on IV diuretics. Anticoagulated with Eliquis. Currently in a -1.6 L balance. White count 23.4. Hemoglobin 9.6. Platelets 320. Sodium 136. Potassium 3.4. Bicarb 39. BUN 91. Creatinine 2.48. Glucose 109. C-reactive protein 4.3. The patient is seen today 02/07/2023 in follow-up on the regular medical floor. She is resting comfortably in bed. Awake and alert in no acute distress. Maintaining O2 saturations in the 90s on 3 L/m per nasal cannula. She remains on DuoNeb inhalations, Symbicort, prednisone taper. Anticoagulated with Eliquis. Remains on oral diuretics. Continued on Diflucan. Computed tomography scan of the abdomen and pelvis revealed acute interstitial edematous pancreatitis. No organizing fluid collection at this time. The cultures revealed no growth. Blood sugar 109. Today's evaluation of 02/08/2023, I'm seeing the patient for a follow-up. I reviewed the records and the patient has improved considerably. I reviewed a series of blood gases has been done on the patient and the patient has shown steady improvement in her carbon dioxide level and a drop down to 60. Most recent pH was at 7.34. She is currently on 3 L of oxygen by nasal cannula. She is not using any form of noninvasive positive pressure ventilation. Respiratory failure is multifactorial including COPD sleep apnea and a combination of drugs that she takes which include MS Contin, Percocet, Flexeril, Klonopin, and she is also taking a sleeping medication. She remains on anticoagulation with Eliquis.The most recent blood work shows a white cell count of 25, hemoglobin of 8.4 and a platelet count of 228, BUN is at 60 with a creatinine of 1.9 and a sodium level is at 137 with a potassium level of 3.5. I noticed that the patient was in acute kidney injury and the creatinine continues to gradually improve as currently down to 1.9. On today's evaluation of 02/09/2023, the patient has essentially the same as compared to yesterday. Remains on oxygen at 2 L/m nasal cannula. No diarrhea. The patient has no nausea or vomiting or abdominal pain. The patient is post pancreatitis. The white cell count remains elevated. The patient remains on IV Zosyn. ID is on the case regarding ongoing leukocytosis. No signs of any respiratory distress. The patient's creatinine remains elevated at 2.0. This is essentially stable compared to yesterday. Sodium level is at 143 with a potassium level of 3.7, CRP level is at 4.3, LFTs show an AST of 27, ALT of 133 and alkaline phosphatase of 68. She is currently on 2 L of O2 nasal cannula with a pulse ox of 93%. She continues to have issues with chronic pain. Quite debilitated. She is in need for physical therapy and rehabilitation. On today's evaluation of 02/10/2023, the patient is awake and alert on room air oxygen. No significant respiratory distress. Not utilizing BiPAP overnight. At same time, the patient is having some diarrhea. Stool for C. diff has been checked that was negative. IV Zosyn was discontinued and the patient was started on oral vancomycin. The patient's echoes down to 20.9 with a hemoglobin of 9.2. No other new complaints otherwise for now. Medications remain unchanged. No abdominal pain. No nausea or emesis. She is having frequent liquid bowel movements. Objective - Vital Signs Vital signs: Vital Signs Temp 98.3 F 02/10/23 13:23 Pulse 122 H 02/10/23 13:23 Resp 18 02/10/23 13:23 BP 152/97 10/25/23 13:23 Pulse Ox 98 02/10/23 13:23 FiO2 45 01/31/23 08:00 Intake & Output 02/09/23 02/10/23 02/10/23 18:59 06:59 18:59 Intake Total 200 640 540 Balance 200 640 540 Intake: IV 80 0.9 NS 80 Intake, IV Titration 200 200 Amount Piperacillin-Tazobactam 3 200 200 .375 gm In Sodium Chloride 0.9% 100 ml @ 25 mls/hr IVPB Q8HR COUNTS INCLUDE 234 BEDS AT THE [facility] Rx# :[id number] Oral 360 540 Other: Voiding Method Bedside Commode # Voids 1 - Exam GENERAL EXAM: Alert, 67-year-old female, resting comfortably in bed, on 3 L nasal cannula, in no apparent distress. HEAD: Normocephalic. EYES: Normal reaction of pupils, equal size. NOSE: Clear with pink turbinates. THROAT: No erythema or exudates. NECK: No masses, no JVD. CHEST: No chest wall deformity. LUNGS: Equal air entry with bilateral end expiratory wheeze, few scattered rhonchi. CVS: S1 and S2 normal with no audible murmur, regular rhythm. ABDOMEN: No hepatosplenomegaly, normal bowel sounds, no guarding or rigidity. SPINE: No scoliosis or deformity SKIN: No rashes CENTRAL NERVOUS SYSTEM: No focal deficits, tone is normal in all 4 extremities. EXTREMITIES: There is no peripheral edema. No clubbing, no cyanosis. Peripheral pulses are intact. - Labs CBC & Chem 7: 02/10/23 12:58 02/09/23 06:18 Labs: Abnormal Lab Results - Last 24 Hours (Table) 02/09/23 02/09/23 02/09/23 Range/Units 13:42 17:16 20:12 WBC (3.8-10.6) k/uL Hgb (11.4-16.0) gm/dL Hct (34.0-46.0) % MCV (80.0-100.0) fL MCH (25.0-35.0) pg MCHC (31.0-37.0) g/dL RDW (11.5-15.5) % Neutrophils # (1.3-7.7) k/uL Lymphocytes # (1.0-4.8) k/uL POC Glucose (mg/dL) 170 H 177 H 167 H (70-110) mg/dL 02/10/23 02/10/23 02/10/23 Range/Units 08:09 12:24 12:58 WBC 20.9 H (3.8-10.6) k/uL Hgb 9.2 L (11.4-16.0) gm/dL Hct 32.3 L (34.0-46.0) % MCV 77.0 L (80.0-100.0) fL MCH 21.9 L (25.0-35.0) pg MCHC 28.4 L (31.0-37.0) g/dL RDW 22.1 H (11.5-15.5) % Neutrophils # 19.9 H (1.3-7.7) k/uL Lymphocytes # 0.4 L (1.0-4.8) k/uL POC Glucose (mg/dL) 115 H 139 H (70-110) mg/dL Assessment and Plan Plan: Altered mental status secondary to hypercapnic respiratory failure secondary to possible extra Klonopin use as well as an acute exacerbation of diastolic congestive heart failure, this improved and the patient's mentation is back to normal. Hypercapnic respiratory failure was multifactorial including COPD/MYLENE //medication Acute hypoxemic and hypercapnic respiratory failure secondary to above improved and on 3 L cannula Severe pulmonary hypertension with evidence of right-sided heart failure, please refer to the echocardiogram. This could be related to chronic hypoxemia. The patient x-ray shows improved and the patient is currently on room air oxygen maintaining a pulse ox above 90% Metabolic encephalopathy secondary to above, elevated ammonia level, recovered Leukocytosis, improving Chronic Anemia Acute kidney injury, current creatinine is improving is down to 1.9, awaiting labs from today and this will be repeated tomorrow also. Hyperkalemia Acute transaminitis trending down Acute pancreatitis, lipase improved and at 267. Computed tomography scan of the abdomen and pelvis revealed acute interstitial edematous pancreatitis. No organizing fluid collection at this time. Troponin leak Urine drug screen is positive for opiates, oxycodone and tricyclic antidepressants History of fibromyalgia History of anxiety/depression/panic disorder Hyperlipidemia Hypertension Memory impairment Chronic and ongoing tobacco dependence Chronic atrial fibrillation anticoagulant with Eliquis Diarrhea, stool for C. diff has been negative Plan: IV Zosyn has been discontinued Continue oral vancomycin White cell count is improving The patient currently on room air. Recommend utilizing oxygen overnight to prevent any oxygen desaturations. Continue diuretics monitor renal function, the patient is receiving Lasix 40 mg twice a day by mouth Incentive spirometer Anticoagulants with Eliquis bronchodilators in the form of DuoNeb updrafts and Symbicort as maintenance Outpatient sleep study at the later stage Avoid any form of excessive intake of narcotics and benzodiazepines. The chest x-ray was reviewed from today. It shows cardiomegaly. No evidence of any pneumonia at this point Zosyn can be discontinued, and the white cell count is still elevated. Will be related to reactive leukocytosis post pancreatitis. Doubt any intra-abdominal abscesses. Monitor diarrhea, currently inactive in his stool for C. diff has been negative We'll continue to follow
--- NOTE | 2023-02-10 16:30 | P.PN ---
Subjective Progress Note Date: 02/10/23 Patient continues to be closely monitored in the intensive care unit. Remains on IV Lasix 60 mg every 12 hours patient has diuresed over 3.2 L in the last 24 hours. Discontinue significant lower extremity edema patient states that this is improving. Nephrology following closely patient's BUN today is 23, creatinine 4.05 no decision yet whether patient will begin renal replacement therapy or not. Lipase is improved today down to 345. Additionally the white count is improved to 12.9. Hemoglobin stable at 8.1 no signs of acute bleeding. Patient additionally continues on IV Solu-Medrol high-dose for the acute COPD exacerbation remains on 5 L of oxygen there is a discrepancy whether patient ac tually uses home oxygen or not. It is documented in the medical records the patient is on 2 L of home oxygen however when asked patient does deny and states that she has never worn oxygen at home even for short period of time. Patient has had 3 loose bowel movements today, would recommend to change lactulose to as needed titration and to be given until patient has 2-3 bowel movements per day. Most recent ammonia level has normalized and currently 14. Patient continues on IV Zosyn empirically. She remains in atrial fibrillation with rapid ventricular rate in the low 100s. Patient has not gotten up out of bed physical therapy is consulted likely patient will require subacute rehab on discharge. Patient was under the impression that she was being discharged home today. 02/03/2023 Patient remains in the intensive care unit. Mentation improving. PT/OT has been consulted and recommend subacute rehab on discharge. Patient remains on IV lasix the dose was cut back yesterday the creatinine has improved today at 3.74. BUN 118. Lipase has normalized. Patient is tolerating diet. Remains on IV zosyn. And on oral prednisone. Metoprolol was increased to TID and heart rate is slowly coming down. 02/04/2023 Patient remains in intensive care unit she has been downgraded to a medical surgical bed with telemetry monitoring she is pending a bed placement. She is currently alert 3 working physical therapy sitting up in the chair today. Diet as upgraded with no further complaints of abdominal pain. Her lipase is normalized. Metoprolol was increased and heart rate is now resting between 100 and 103. Chest x-ray this morning shows pulmonary venous congestion and cardiomegaly persisting although her to improve there is a suspected small left- sided subpulmonic effusion. White count is 19.0. Hemoglobin stable at 8.8. Sodium of 136, potassium 3.3., BUN 109, creatinine 3.51. 02/05/2023 Patient is evaluated today remains in ICU as a med surg hold. Patient remains on oxygen. No shortness of breath. She has been working with PT was up in the chair yesterday. Lower extremity edema is slightly better she has compression stockings on and remains on IV lasix at 60 mg Q12h. Patient apparently has some excoriation in her buttock and possibly a stage 2 ulcer on her buttock as well. Patient states the nursing staff put barrier cream on for her. White count today up to 23.0, hemoglobin 9.0. Sodium 136, potassium 3.7. Creatinine 2.73. 02/06/2023 Patient is evaluated today on a medical floor. She reports no shortness of breath she remains on 2 L of oxygen and she does her 2 L as needed at home. She is working physical therapy however she needs encouragement to be up in the c hair for meals and also to use the bedside commode. Patient has not wanted to take her IV Lasix this morning as it does make her urinate frequently. She remains on 60 mg every 12 hours of IV Lasix. White count remains elevated at 23.4 patient was started on oral Diflucan and will be considered for an abdominal pelvis CT. Her creatinine continues to improve today it is 2.48. 02/07/2023 Patient is evaluated today on the medical floor. Patient remains on IV lasix 60 mg Q12h. Had multiple episodes of diarrhea overnight, noted that patient was getting lactulose for elevated ammonia level. C.Dif ordered and pending. Creatinine continues to improve. Patient needs encouragement to get up out of bed and to sit up in the chair for meals. Blood culture remains negative. 02/08/2023 Patient is seen and evaluated and follow-up with multiple medical consultations following including nephrology, cardiology, infectious disease, pulmonary. WBC remains elevated at 25 with infectious disease following and is continuing on Zosyn. Blood cultures remain negative. Patient is continue on oral steroids along with DuoNeb treatments and some of the elevated white count may be multifactorial as patient is afebrile. Patient continues on 2-3 L via nasal cannula and continues with significant weakness. Recommend physical therapy daily and patient will likely need ECF. Patient kidney functions are trending down and nephrology following. Patient has had prolonged hospitalization and again will need ECF on discharge. Patient having loose stools and C. diff was negative and will discontinue lactulose and continue with Questran twice daily as patient continues to report loose stools. 02/09/2023 Patient is seen in follow-up today with multiple medical consultations following. Patient is maintained on IV antibiotics and cultures have thus far been negative. White count is 26.37 with no active signs of infection and likely reactive secondary to steroid use. Patient's kidney functions are somewhat stable at 2.0 with a BUN of 43.4 and nephrology following continued on Lasix which is being transitioned to oral. Patient with significant weakness and did have some episodes of nausea last night with no vomiting started on clear liquids although asking for advance in diet and will transition to low fiber and monitor closely. Continue with Accu-Cheks before meals and at bedtime and will continue sliding scale. Patient with significant weakness will be going to ECF and going to [facility] on the [place]. Case management following and has requested for insurance authorization. Continue with anti-nausea medications and encouraged to increase activity as tolerated and oral intake. 02/10/2023 Patient is seen in follow-up today currently sitting up on the side of the bed reporting she is having multiple episodes of loose stools. Patient is maintained on Questran with no relief and C. diff testing was negative. Discussed with infectious disease as white count remained elevated and we'll transition to oral Vanco and discontinue Zosyn. Patient to continue with current diet and antinausea medication as scheduled. Patient denying any further nausea will make as needed. Repeat labs from this morning are pending. Will follow-up with repeat labs again in the a.m. and monitor as white count is trending down. Patient is afebrile and denies any chest pain or shortness of br eath. Patient continue with supplemental oxygen at night she chronically wears oxygen outpatient. Recommend physical therapy daily and patient will be going to ECF on discharge. Awaiting insurance authorization at this time. Review of Systems Constitutional: Reports fatigue, denied any fever. Cardio vascular: denied any chest pain, palpitations Gastrointestinal: denied any nausea, vomiting. Reports multiple episodes of diarrhea. Pulmonary: Denied any shortness of breath cough Neurologic denied any new focal deficits, Reports significant weakness All inpatient medications were reviewed and appropriate changes in these medications as dictated in the interval history and assessment and plan. PHYSICAL EXAMINATION: GENERAL: The patient is alert and oriented x2-3 Well developed, well nourished. Obese. On 2L of oxygen via nasal cannula. HEENT: Pupils are round and equally reacting to light. EOMI. No scleral icterus. No conjunctival pallor. Normocephalic, atraumatic. No pharyngeal erythema. No thyromegaly. CARDIOVASCULAR: S1 and S2 muffled PULMONARY: Diminished breath sounds bilaterally with some scattered rhonchi noted ABDOMEN: Soft, obese. nontender, nondistended, normoactive bowel sounds. No palpable organomegaly. MUSCULOSKELETAL: No joint swelling or deformity. EXTREMITIES: No cyanosis, clubbing, +1 lower extremity pitting edema showing some improvement NEUROLOGICAL: Gross neurological examination did not reveal any focal deficits. Diffuse generalized weakness. SKIN: No rashes. Assessment: Acute hypoxemic hypercapnic respiratory failure secondary to acute COPD exacerbation currently 2 L of oxygen she required BiPAP with an FiO2 of 45% on admission. Altered mental status secondary to acute metabolic and toxic encephalopathy secondary to acute renal injury and hypercapnia currently improved and alert 3 Mild acute pancreatitis per her CT scan lipase has normalized. Acute renal failure with hyperkalemia due to ATN and hypotension Hypokalemia due to diuresis. Improving Diarrhea, C. diff was negative Acute diastolic heart failure with moderate pulmonary hypertension Chronic hypoxic respiratory failure on 2L as needed at home per patient she is unsure why. Diabetes Mellitus type 2 with hemoglobin A1C 6.6. Transamnitis likely due to volume overload; improving. Chronic Atrial fibrillation with rapid ventricular rate HR in the 100s. Currently rate controlled Anemia, microcytic iron deficiency on IV ferrlecit Possible colitis with ileus, improved History of CVA/TIA Hypertension Hyperlipidemia History of memory impairment Chronic neck and back pain status post cervical fusion surgery. Stage II right buttock ulceration hospital-acquired Anxiety depression and panic disorder, not in active tissue GI prophylaxis on protonix BID DVT prophylaxis on eliquis 2.5 BID renal dosing Full Code Plan: Multiple medical consultations following and white count remains elevated although trending down and discuss with infectious disease and will discontinue Zosyn and initiate oral Vanco as patient continues to report multiple episodes of loose stools and diarrhea. C. diff testing was negative. White count is 20 today and will follow-up with repeat labs Continue Questran twice daily Continue low fiber diet for now and slowly advance as tolerated. Encouraged increase activity as tolerated and recommend PT/OT therapy daily. Case management following awaiting insurance authorization for ECF IV Lasix transitioned oral Lasix with cardiology following Patient is encouraged to get up out of bed and ambulate as well as up in the chair for meals. due to multiple complex medical issues, prognosis is guarded Possible discharge in 24 hours The impression and plan of care has been dictated by Giselle Rapp, Nurse Practitioner as directed. Dr. Jun MD I have performed a history and examination and MDM of this patient, discussed the same with the dictator, and agree with the dictator's assessment and plan as written ,documented as a scribe. Based on total visit time, I have performed more than 50% of the visit. Objective - Vital Signs Vital signs: Vital Signs Temp 97.6 F 02/10/23 08:00 Pulse 118 H 02/10/23 08:00 Resp 20 02/10/23 08:00 BP 150/52 02/10/23 08:00 Pulse Ox 93 L 02/10/23 08:00 FiO2 45 01/31/23 08:00 Intake & Output 02/09/23 02/10/23 02/10/23 18:59 06:59 18:59 Intake Total 200 640 540 Balance 200 640 540 Intake: IV 80 0.9 NS 80 Intake, IV Titration 200 200 Amount Piperacillin-Tazobactam 3 200 200 .375 gm In Sodium Chloride 0.9% 100 ml @ 25 mls/hr IVPB Q8HR [facility] Rx# :[id number] Oral 360 540 Other: Voiding Method Bedside Commode # Voids 1 - Labs CBC & Chem 7: 02/10/23 12:58 02/09/23 06:18 Labs: Abnormal Lab Results - Last 24 Hours (Table) 02/09/23 02/09/23 02/09/23 Range/Units 06:18 06:18 13:42 WBC 26.37 H (4.50-10.00) X 10*3/uL Hgb 9.1 L (12.0-15.0) d/dL Hct 34.0 L (37.2-46.3) % MCV 78.3 L (80.0-97.0) FL MCH 21.0 L (27.0-32.0) pg MCHC 26.8 L (32.0-37.0) d/dL RDW 25.4 H (11.5-14.5) % Neutrophils # 23.67 H (1.80-7.70) X 10*3/uL Monocytes # 1.38 H (0.20-1.00) X 10*3/uL Anion Gap 16.90 H (4.00-12.00) mmol/L BUN 43.4 H (9.0-27.0) mg/dL Creatinine 2.0 H (0.6-1.5) mg/dL Est GFR (CKD-EPI) 27 L (>=60) BUN/Creatinine Ratio 21.70 H (12.00-20.00) Ratio Glucose 115 H (70-110) mg/dL POC Glucose (mg/dL) 170 H (70-110) mg/dL ALT 133 H (8-44) U/L C-Reactive Protein 4.30 H (0.00-0.80) mg/dL Total Protein 5.7 L (6.2-8.2) d/dL Albumin 3.4 L (3.8-4.9) d/dL Albumin/Globulin Ratio 1.48 L (1.60-3.17) Ratio 02/09/23 02/09/23 02/10/23 Range/Units 17:16 20:12 08:09 WBC (4.50-10.00) X 10*3/uL Hgb (12.0-15.0) d/dL Hct (37.2-46.3) % MCV (80.0-97.0) FL MCH (27.0-32.0) pg MCHC (32.0-37.0) d/dL RDW (11.5-14.5) % Neutrophils # (1.80-7.70) X 10*3/uL Monocytes # (0.20-1.00) X 10*3/uL Anion Gap (4.00-12.00) mmol/L BUN (9.0-27.0) mg/dL Creatinine (0.6-1.5) mg/dL Est GFR (CKD-EPI) (>=60) BUN/Creatinine Ratio (12.00-20.00) Ratio Glucose (70-110) mg/dL POC Glucose (mg/dL) 177 H 167 H 115 H (70-110) mg/dL ALT (8-44) U/L C-Reactive Protein (0.00-0.80) mg/dL Total Protein (6.2-8.2) d/dL Albumin (3.8-4.9) d/dL Albumin/Globulin Ratio (1.60-3.17) Ratio
[2023-02-10 17:10] LABS: Glucose,Whole Blood 171 mg/dL (70-110)
[2023-02-10 20:12] LABS: Glucose,Whole Blood 176 mg/dL (70-110)
--- NOTE | 2023-02-10 21:06 | P.PN ---
Subjective Patient is seen for follow-up for acute kidney injury and hyperkalemia. She is currently being diuresed. Renal function continues to improve. Serum creatinine now staying around 2.0 C/o diarrhea Objective - Vital Signs Vital signs: Vital Signs Temp 98.4 F 02/10/23 19:11 Pulse 124 H 02/10/23 19:11 Resp 18 02/10/23 19:11 BP 153/88 02/10/23 19:11 Pulse Ox 98 02/10/23 19:11 FiO2 45 01/31/23 08:00 Intake & Output 02/10/23 02/10/23 02/11/23 06:59 18:59 06:59 Intake Total 640 640 Balance 640 640 Intake: IV 80 100 0.9 NS 80 100 Intake, IV Titration 200 Amount Piperacillin-Tazobactam 3 200 .375 gm In Sodium Chloride 0.9% 100 ml @ 25 mls/hr IVPB Q8HR [facility] Rx# :[id number] Oral 360 540 Other: Voiding Method Bedside Commode # Voids 1 - Exam Patient is awake, comfortable. Alert oriented 3 Lungs are clear CVS S1 and S2 Abdomen is soft, nontender 1+ edema in the legs TILE DITCHER exam grossly intact - Labs CBC & Chem 7: 02/10/23 12:58 02/09/23 06:18 Labs: Abnormal Lab Results - Last 24 Hours (Table) 02/10/23 02/10/23 02/10/23 Range/Units 08:09 12:24 12:58 WBC 20.9 H (3.8-10.6) k/uL Hgb 9.2 L (11.4-16.0) gm/dL Hct 32.3 L (34.0-46.0) % MCV 77.0 L (80.0-100.0) fL MCH 21.9 L (25.0-35.0) pg MCHC 28.4 L (31.0-37.0) g/dL RDW 22.1 H (11.5-15.5) % Neutrophils # 19.9 H (1.3-7.7) k/uL Lymphocytes # 0.4 L (1.0-4.8) k/uL POC Glucose (mg/dL) 115 H 139 H (70-110) mg/dL 02/10/23 02/10/23 Range/Units 17:09 20:10 WBC (3.8-10.6) k/uL Hgb (11.4-16.0) gm/dL Hct (34.0-46.0) % MCV (80.0-100.0) fL MCH (25.0-35.0) pg MCHC (31.0-37.0) g/dL RDW (11.5-15.5) % Neutrophils # (1.3-7.7) k/uL Lymphocytes # (1.0-4.8) k/uL POC Glucose (mg/dL) 171 H 176 H (70-110) mg/dL Microbiology - Last 24 Hours (Table) 02/05/23 09:06 Blood Culture - Final Blood Assessment and Plan Assessment: 1. Acute kidney injury mostly ATN from hypotension. UA is completely benign. No evidence of hydronephrosis on abdominal CT. previous creatinine 1.0 on 08/14/2021. Renal function continues to improve. Creatinine staying around 2 2. Mental status changes secondary to hypercapnic respiratory failure, resolved 3. Respiratory acidosis and hypercapnic respiratory failure, improved 4. Hyperkalemia associated with acute kidney injury, improved 5. Anemia with severe iron deficiency. No active bleeding noted. Status post IV iron 6. Hyponatremia, hypervolemic, improved 7. Hypervolemia/volume overload, improved 8. Colonic dilatation, ileus 9. Acute pancreatitis, currently tolerating oral intake 10. Shock liver, improved significantly. Plan: Continue Lasix to 40 mg twice a day Continue Aldactone Avoid nephrotoxic agents
[2023-02-11] MEDS: METOCLOPRAMIDE 5 MG/ML 2 ML VIAL IVP SCH ×4 (00:21→17:34)
[2023-02-11] MEDS: ACETAMINOPHEN TAB 325 MG TAB PO PRN ×4 (01:13→22:09)
[2023-02-11 07:23] LABS: Glucose,Whole Blood 118 mg/dL (70-110)
[2023-02-11] MEDS: INSULIN ASPART (NovoLOG) 100 UNIT/ML VIAL SQ SCH ×4 (07:26→21:16)
[2023-02-11] MEDS: IPRATROPIUM-ALBUTEROL 3 ML NEB INHALATION SCH ×4 (07:54→18:05)
[2023-02-11] MEDS: SYMBICORT 160-4.5 MCG INHALER INHALATION SCH ×2 (07:54→18:05)
[2023-02-11] MEDS: predniSONE 10 MG TAB PO SCH (08:57)
[2023-02-11] MEDS: CHOLESTYRAMINE (WITH SUGAR) 4 GM PACKET PO SCH ×2 (08:57→17:34)
[2023-02-11] MEDS: APIXABAN 2.5 MG TABLET PO SCH ×2 (08:57→21:01)
[2023-02-11] MEDS: PANTOPRAZOLE 40 MG/10 ML VIAL IVP SCH ×2 (08:57→21:02)
[2023-02-11] MEDS: LORATADINE 10 MG TAB PO SCH (08:58)
[2023-02-11] MEDS: FUROSEMIDE 40 MG TAB PO SCH ×2 (08:58→15:34)
[2023-02-11] MEDS: SPIRONOLACTONE 25 MG TAB PO SCH (08:58)
[2023-02-11] MEDS: DULoxetine HCL 60 MG CAPSULE.DR PO SCH (08:58)
[2023-02-11] MEDS: METOPROLOL SUCCINATE (ER) 25 MG TAB.ER.24H PO SCH ×2 (08:58→21:01)
[2023-02-11] MEDS: FLUCONAZOLE 100 MG TAB PO SCH (08:59)
[2023-02-11] MEDS: METOPROLOL SUCCINATE (ER) 100 MG TAB.ER.24H PO SCH ×2 (09:00→21:01)
[2023-02-11] MEDS: AMIODARONE 100 MG TAB PO SCH (09:00)
[2023-02-11] MEDS: DAPAGLIFLOZIN PROPANEDIOL 10 MG TABLET PO SCH (09:00)
[2023-02-11] MEDS: VANCOMYCIN 125 MG CAPSULE PO SCH ×4 (09:29→21:01)
[2023-02-11 10:48] LABS: Basophils # (A) 0.01 X 10*3/uL (0.00-0.10); Basophils % (A) 0 %; Eosinophils # (A) 0.06 X 10*3/uL (0.04-0.35); Eosinophils % (A) 0.3 %; HCT 30.2 % (37.2-46.3); HGB 8.1 d/dL (12.0-15.0); Lymphocytes # (A) 0.99 X 10*3/uL (0.90-5.00); Lymphocytes % (A) 4.6 %; MCH 21.1 pg (27.0-32.0); MCHC 26.8 d/dL (32.0-37.0); MCV 78.6 FL (80.0-97.0); Monocytes # (A) 1.02 X 10*3/uL (0.20-1.00); Monocytes % (A) 4.8 %; NRBC Per 100 WBC 0 X 10*3/uL (0.00-0.01); Neutrophils # (A) 19.11 X 10*3/uL (1.80-7.70); Neutrophils % (A) 89.7 %; Platelet Count 161 X 10*3/uL (140-440); RBC 3.84 X 10*6/uL (4.10-5.20); RDW 25.6 % (11.5-14.5); WBC 21.32 X 10*3/uL (4.50-10.00)
[2023-02-11 11:03] LABS: ALT 91 U/L (8-44); AST 18 U/L (13-35); Albumin 3.5 d/dL (3.8-4.9); Albumin/Globulin Ratio 1.52 Ratio (1.60-3.17); Alkaline Phosphatase 67 U/L (41-126); BUN/Creat Ratio 18.33 Ratio (12.00-20.00); Calcium 9.7 mg/dL (8.7-10.3); Carbon Dioxide 28.9 mmol/L (21.6-31.8); Chloride 101 mmol/L (96-109); Globulin 2.3 d/dL (1.6-3.3); Glucose 107 mg/dL (70-110); Potassium 3.1 mmol/L (3.5-5.5); Sodium 143 mmol/L (135-145); Total Bilirubin 0.5 mg/dL (0.3-1.2); Total Protein 5.8 d/dL (6.2-8.2)
[2023-02-11] MEDS ORDERED: AMIODARONE 100 MG TAB PO STA (11:25)
[2023-02-11] MEDS: DARBEPOETIN ALFA 40 MCG/0.4 ML SYRINGE SQ SCH (12:09)
[2023-02-11 12:24] LABS: Glucose,Whole Blood 132 mg/dL (70-110)
--- NOTE | 2023-02-11 12:27 | P.PN ---
Subjective HISTORY OF PRESENT ILLNESS: 02/07/2023 Patient is stable from cardiac vessel standpoint. She is having good diuresis with IV Lasix 60 mg twice a day. Her lower swelling has improved significantly. She is tolerating oral diet. Rate controlled atrial fibrillation on telemetry 02/08/2023 Patient examined this morning. She is sitting in the chair. She denies chest pain or pressure. Denies SOB. Remains on oral lasix. BMP from this morning is currently pending. Patient is currently not on telemetry. Documented heart rates 100-120. Blood pressure stable. 02/09/2023 Patient examined this morning. She is sitting up in the chair. Patient denies chest pain or pressure. She denies shortness of breath. Blood pressure stable. Telemetry reveals atrial fibrillation. Heart rate is in the low 100s. 02/10/2023 Patient examined this morning at the bedside. Patient denies chest pain or pressure. She currently denies shortness of breath. Vital signs are stable. Telemetry reveals atrial fibrillation with a heart rate in the low 100s. She continues to report diarrhea. C. diff is negative. She is receiving antibiotics per infectious disease. WBC yesterday 26.37. 02/11/2023 Patient examined this morning at the bedside. Patient denies chest pain or pressure. She denies shortness of breath. Blood pressure has improved with a systolic in the 140s. Telemetry reveals atrial fibrillation with a heart rate in the low 100s. PHYSICAL EXAM: VITAL SIGNS: Reviewed. GENERAL: Well-developed in no acute distress. NECK: Supple. No JVD or thyromegaly LUNGS: Respirations even and unlabored. Lungs diminished bilaterally. HEART: Irregular rate and rhythm. S1 and S2 heard. EXTREMITIES: Normal range of motion. No clubbing or cyanosis. Peripheral pulses intact. Bilateral lower extremity edema present, improved. ASSESSMENT: Acute hypoxic and hypercapnic respiratory failure Acute COPD exacerbation Leukocytosis Acute heart failure with preserved ejection fraction Permanent atrial fibrillation Pancreatitis with pseudocyst Acute kidney injury Former nicotine dependence PLAN: Continue current cardiac medications Increase amiodarone to 200 mg daily Will consider right-sided heart catheterization on an outpatient basis secondary to significant right ventricular dilatation with concerns of possible increased pulmonary pressures Continue antibiotics per infectious disease Patient is currently stable from a cardiac perspective Further recommendations pending patient's course Nurse practitioner note has been reviewed by physician. Signing provider agrees with the documented findings, assessment, and plan of care. Objective - Vital Signs Vital signs: Vital Signs Temp 98 F 02/11/23 07:18 Pulse 126 H 02/11/23 07:18 Resp 28 H 02/11/23 07:18 BP 145/83 02/11/23 07:18 Pulse Ox 97 02/11/23 07:18 FiO2 45 01/31/23 08:00 Intake & Output 02/10/23 02/11/23 02/11/23 18:59 06:59 18:59 Intake Total 640 590 Output Total 4 Balance 640 586 Intake: IV 100 0.9 NS 100 Oral 540 590 Output: Stool 4 Other: Voiding Method Bedside Commode # Bowel Movements 1 - Labs CBC & Chem 7: 02/11/23 05:49 02/11/23 05:49 Labs: Abnormal Lab Results - Last 24 Hours (Table) 02/10/23 02/10/23 02/10/23 Range/Units 12:24 12:58 17:09 WBC 20.9 H (3.8-10.6) k/uL RBC (4.10-5.20) X 10*6/uL Hgb 9.2 L (11.4-16.0) gm/dL Hct 32.3 L (34.0-46.0) % MCV 77.0 L (80.0-100.0) fL MCH 21.9 L (25.0-35.0) pg MCHC 28.4 L (31.0-37.0) g/dL RDW 22.1 H (11.5-15.5) % Neutrophils # 19.9 H (1.3-7.7) k/uL Lymphocytes # 0.4 L (1.0-4.8) k/uL Monocytes # (0.20-1.00) X 10*3/uL Potassium (3.5-5.5) mmol/L Anion Gap (4.00-12.00) mmol/L BUN (9.0-27.0) mg/dL Creatinine (0.6-1.5) mg/dL Est GFR (CKD-EPI) (>=60) POC Glucose (mg/dL) 139 H 171 H (70-110) mg/dL ALT (8-44) U/L C-Reactive Protein (0.00-0.80) mg/dL Total Protein (6.2-8.2) d/dL Albumin (3.8-4.9) d/dL Albumin/Globulin Ratio (1.60-3.17) Ratio 02/10/23 02/11/23 02/11/23 Range/Units 20:10 05:49 05:49 WBC 21.32 H (3.8-10.6) k/uL RBC 3.84 L (4.10-5.20) X 10*6/uL Hgb 8.1 L (11.4-16.0) gm/dL Hct 30.2 L (34.0-46.0) % MCV 78.6 L (80.0-100.0) fL MCH 21.1 L (25.0-35.0) pg MCHC 26.8 L (31.0-37.0) g/dL RDW 25.6 H (11.5-15.5) % Neutrophils # 19.11 H (1.3-7.7) k/uL Lymphocytes # (1.0-4.8) k/uL Monocytes # 1.02 H (0.20-1.00) X 10*3/uL Potassium 3.1 L (3.5-5.5) mmol/L Anion Gap 13.10 H (4.00-12.00) mmol/L BUN 33.0 H (9.0-27.0) mg/dL Creatinine 1.8 H (0.6-1.5) mg/dL Est GFR (CKD-EPI) 31 L (>=60) POC Glucose (mg/dL) 176 H (70-110) mg/dL ALT 91 H (8-44) U/L C-Reactive Protein 3.40 H (0.00-0.80) mg/dL Total Protein 5.8 L (6.2-8.2) d/dL Albumin 3.5 L (3.8-4.9) d/dL Albumin/Globulin Ratio 1.52 L (1.60-3.17) Ratio 02/11/23 02/11/23 Range/Units 07:18 12:22 WBC (3.8-10.6) k/uL RBC (4.10-5.20) X 10*6/uL Hgb (11.4-16.0) gm/dL Hct (34.0-46.0) % MCV (80.0-100.0) fL MCH (25.0-35.0) pg MCHC (31.0-37.0) g/dL RDW (11.5-15.5) % Neutrophils # (1.3-7.7) k/uL Lymphocytes # (1.0-4.8) k/uL Monocytes # (0.20-1.00) X 10*3/uL Potassium (3.5-5.5) mmol/L Anion Gap (4.00-12.00) mmol/L BUN (9.0-27.0) mg/dL Creatinine (0.6-1.5) mg/dL Est GFR (CKD-EPI) (>=60) POC Glucose (mg/dL) 118 H 132 H (70-110) mg/dL ALT (8-44) U/L C-Reactive Protein (0.00-0.80) mg/dL Total Protein (6.2-8.2) d/dL Albumin (3.8-4.9) d/dL Albumin/Globulin Ratio (1.60-3.17) Ratio Microbiology - Last 24 Hours (Table) 02/05/23 09:06 Blood Culture - Final Blood
[2023-02-11] MEDS ORDERED: LOPERAMIDE 2 MG CAP PO PRN (15:34)
[2023-02-11] MEDS ORDERED: LOPERAMIDE 2 MG CAP PO STA (15:34)
[2023-02-11] MEDS ORDERED: Potassium Replacement Protocol 1 EACH MISC MISCELLANE PRN (16:09)
--- NOTE | 2023-02-11 16:13 | P.PN ---
Subjective Progress Note Date: 02/11/23 Patient continues to be closely monitored in the intensive care unit. Remains on IV Lasix 60 mg every 12 hours patient has diuresed over 3.2 L in the last 24 hours. Discontinue significant lower extremity edema patient states that this is improving. Nephrology following closely patient's BUN today is 23, creatinine 4.05 no decision yet whether patient will begin renal replacement therapy or not. Lipase is improved today down to 345. Additionally the white count is improved to 12.9. Hemoglobin stable at 8.1 no signs of acute bleeding. Patient additionally continues on IV Solu-Medrol high-dose for the acute COPD exacerbation remains on 5 L of oxygen there is a discrepancy whether patient ac tually uses home oxygen or not. It is documented in the medical records the patient is on 2 L of home oxygen however when asked patient does deny and states that she has never worn oxygen at home even for short period of time. Patient has had 3 loose bowel movements today, would recommend to change lactulose to as needed titration and to be given until patient has 2-3 bowel movements per day. Most recent ammonia level has normalized and currently 14. Patient continues on IV Zosyn empirically. She remains in atrial fibrillation with rapid ventricular rate in the low 100s. Patient has not gotten up out of bed physical therapy is consulted likely patient will require subacute rehab on discharge. Patient was under the impression that she was being discharged home today. 02/03/2023 Patient remains in the intensive care unit. Mentation improving. PT/OT has been consulted and recommend subacute rehab on discharge. Patient remains on IV lasix the dose was cut back yesterday the creatinine has improved today at 3.74. BUN 118. Lipase has normalized. Patient is tolerating diet. Remains on IV zosyn. And on oral prednisone. Metoprolol was increased to TID and heart rate is slowly coming down. 02/04/2023 Patient remains in intensive care unit she has been downgraded to a medical surgical bed with telemetry monitoring she is pending a bed placement. She is currently alert 3 working physical therapy sitting up in the chair today. Diet as upgraded with no further complaints of abdominal pain. Her lipase is normalized. Metoprolol was increased and heart rate is now resting between 100 and 103. Chest x-ray this morning shows pulmonary venous congestion and cardiomegaly persisting although her to improve there is a suspected small left- sided subpulmonic effusion. White count is 19.0. Hemoglobin stable at 8.8. Sodium of 136, potassium 3.3., BUN 109, creatinine 3.51. 02/05/2023 Patient is evaluated today remains in ICU as a med surg hold. Patient remains on oxygen. No shortness of breath. She has been working with PT was up in the chair yesterday. Lower extremity edema is slightly better she has compression stockings on and remains on IV lasix at 60 mg Q12h. Patient apparently has some excoriation in her buttock and possibly a stage 2 ulcer on her buttock as well. Patient states the nursing staff put barrier cream on for her. White count today up to 23.0, hemoglobin 9.0. Sodium 136, potassium 3.7. Creatinine 2.73. 02/06/2023 Patient is evaluated today on a medical floor. She reports no shortness of breath she remains on 2 L of oxygen and she does her 2 L as needed at home. She is working physical therapy however she needs encouragement to be up in the c hair for meals and also to use the bedside commode. Patient has not wanted to take her IV Lasix this morning as it does make her urinate frequently. She remains on 60 mg every 12 hours of IV Lasix. White count remains elevated at 23.4 patient was started on oral Diflucan and will be considered for an abdominal pelvis CT. Her creatinine continues to improve today it is 2.48. 02/07/2023 Patient is evaluated today on the medical floor. Patient remains on IV lasix 60 mg Q12h. Had multiple episodes of diarrhea overnight, noted that patient was getting lactulose for elevated ammonia level. C.Dif ordered and pending. Creatinine continues to improve. Patient needs encouragement to get up out of bed and to sit up in the chair for meals. Blood culture remains negative. 02/08/2023 Patient is seen and evaluated and follow-up with multiple medical consultations following including nephrology, cardiology, infectious disease, pulmonary. WBC remains elevated at 25 with infectious disease following and is continuing on Zosyn. Blood cultures remain negative. Patient is continue on oral steroids along with DuoNeb treatments and some of the elevated white count may be multifactorial as patient is afebrile. Patient continues on 2-3 L via nasal cannula and continues with significant weakness. Recommend physical therapy daily and patient will likely need ECF. Patient kidney functions are trending down and nephrology following. Patient has had prolonged hospitalization and again will need ECF on discharge. Patient having loose stools and C. diff was negative and will discontinue lactulose and continue with Questran twice daily as patient continues to report loose stools. 02/09/2023 Patient is seen in follow-up today with multiple medical consultations following. Patient is maintained on IV antibiotics and cultures have thus far been negative. White count is 26.37 with no active signs of infection and likely reactive secondary to steroid use. Patient's kidney functions are somewhat stable at 2.0 with a BUN of 43.4 and nephrology following continued on Lasix which is being transitioned to oral. Patient with significant weakness and did have some episodes of nausea last night with no vomiting started on clear liquids although asking for advance in diet and will transition to low fiber and monitor closely. Continue with Accu-Cheks before meals and at bedtime and will continue sliding scale. Patient with significant weakness will be going to ECF and going to [facility] on the [place]. Case management following and has requested for insurance authorization. Continue with anti-nausea medications and encouraged to increase activity as tolerated and oral intake. 02/10/2023 Patient is seen in follow-up today currently sitting up on the side of the bed reporting she is having multiple episodes of loose stools. Patient is maintained on Questran with no relief and C. diff testing was negative. Discussed with infectious disease as white count remained elevated and we'll transition to oral Vanco and discontinue Zosyn. Patient to continue with current diet and antinausea medication as scheduled. Patient denying any further nausea will make as needed. Repeat labs from this morning are pending. Will follow-up with repeat labs again in the a.m. and monitor as white count is trending down. Patient is afebrile and denies any chest pain or shortness of br eath. Patient continue with supplemental oxygen at night she chronically wears oxygen outpatient. Recommend physical therapy daily and patient will be going to ECF on discharge. Awaiting insurance authorization at this time. 02/11/2023 Patient is seen in follow-up today reporting she does not feel well having multiple episodes of diarrhea. C. diff testing was negative and patient per nursing staff has been refusing some Questran will add Imodium and continue with Questran. Patient was transitioned to oral vancomycin per infectious disease. Patient having increased heart rates into the 130s at times an EKG was obtained with atrial fibrillation with RVR. Cardiology following making adjustments to medications. Patient is continued on metoprolol and increasing amiodarone. Patient is anticoagulated with renal dosing of eliquis. Patient continues with weakness recommending physical therapy daily. Plan is for going to ECF once stabilized and cleared by consultations for discharge. White count remains elevated at 21.32 and hemoglobin is stable at 8.1. Sodium is 143 with a pota ssium of 3.1 and creatinine slightly improved at 1.8. Nephrology is following. Review of Systems Constitutional: Reports fatigue, denied any fever. Cardio vascular: denied any chest pain, palpitations Gastrointestinal: denied any nausea, vomiting. Reports multiple episodes of diarrhea. Pulmonary: Denied any shortness of breath cough Neurologic denied any new focal deficits, Reports significant weakness All inpatient medications were reviewed and appropriate changes in these medications as dictated in the interval history and assessment and plan. Active Medications Acetaminophen (Acetaminophen Tab 325 Mg Tab) 650 mg PO Q4HR PRN PRN Reason: Mild Pain or Fever > 100.5 Last Admin: 02/11/23 15:34 Dose: 650 mg Albuterol/Ipratropium (Ipratropium-Albuterol 3 Ml Neb) 3 ml INHALATION RT-QID [facility] Last Admin: 02/11/23 14:52 Dose: Not Given Albuterol/Ipratropium (Ipratropium-Albuterol 3 Ml Neb) 3 ml INHALATION RT-Q2H PRN PRN Reason: Shortness Of Breath Or Wheezing Amiodarone HCl (Amiodarone 200 Mg Tab) 200 mg PO DAILY [facility] Apixaban (Apixaban 2.5 Mg Tablet) 2.5 mg PO BID [facility]; Protocol Last Admin: 02/11/23 08:57 Dose: 2.5 mg Budesonide/Formoterol Fumarate (Symbicort 160-4.5 Mcg Inhaler) 2 puff INHALATION RT-BID [facility] Last Admin: 02/11/23 07:54 Dose: Not Given Cholestyramine Resin (Cholestyramine (With Sugar) 4 Gm Packet) 4 gm PO BID@1000,1800 [facility] Last Admin: 02/11/23 08:57 Dose: 4 gm Dapagliflozin (Dapagliflozin Propanediol 10 Mg Tablet) 10 mg PO DAILY [facility] Last Admin: 02/11/23 09:00 Dose: 10 mg Darbepoetin Jignesh (Darbepoetin Jignesh 40 Mcg/0.4 Ml Syringe) 40 mcg SQ Q7D [facility] Last Admin: 02/11/23 12:09 Dose: 40 mcg Dextrose/Water (Dextrose 50% Syringe 50 Ml) 25 ml IVP PER PROTOCOL PRN; Protocol PRN Reason: Hypoglycemia Dextrose/Water (Dextrose 50% Syringe 50 Ml) 50 ml IVP PER PROTOCOL PRN; Protocol PRN Reason: Hypoglycemia Duloxetine HCl (Duloxetine Hcl 60 Mg Capsule.Dr) 120 mg PO DAILY [facility] Last Admin: 02/11/23 08:58 Dose: 120 mg Fluconazole (Fluconazole 100 Mg Tab) 100 mg PO DAILY [facility]; Protocol Last Admin: 02/11/23 08:59 Dose: 100 mg Furosemide (Furosemide 40 Mg Tab) 40 mg PO BID@0900,1600 [facility] Last Admin: 02/11/23 15:34 Dose: 40 mg Insulin Aspart (Insulin Aspart (Novolog) 100 Unit/Ml Vial) 0 unit SQ ACHS [facility]; Protocol Last Admin: 02/11/23 12:27 Dose: Not Given Loperamide HCl (Loperamide 2 Mg Cap) 2 mg PO QID PRN PRN Reason: Diarrhea Loratadine (Loratadine 10 Mg Tab) 5 mg PO DAILY [facility] Last Admin: 02/11/23 08:58 Dose: 5 mg Metoclopramide HCl (Metoclopramide 5 Mg/Ml 2 Ml Vial) 5 mg IVP Q6HR [facility] Last Admin: 02/11/23 12:09 Dose: Not Given Metoprolol Succinate (Metoprolol Succinate (Er) 100 Mg Tab.Er.24h) 100 mg PO BID [facility] Last Admin: 02/11/23 09:00 Dose: 100 mg Metoprolol Succinate (Metoprolol Succinate (Er) 25 Mg Tab.Er.24h) 25 mg PO BID [facility] Last Admin: 02/11/23 08:58 Dose: 25 mg Miscellaneous Information (Potassium Replacement Protocol 1 Each Misc) 1 each M ISCELLANE DAILY PRN; Protocol PRN Reason: Per Protocol Naloxone HCl (Naloxone 0.4 Mg/Ml 1 Ml Vial) 0.2 mg IVP Q2M PRN PRN Reason: Opioid Reversal Ondansetron HCl (Ondansetron 4 Mg/2 Ml Vial) 4 mg IVP Q6HR PRN PRN Reason: Nausea And Vomiting Last Admin: 02/08/23 19:41 Dose: 4 mg Pantoprazole Sodium (Pantoprazole 40 Mg/10 Ml Vial) 40 mg IVP BID [facility] Last Admin: 02/11/23 08:57 Dose: 40 mg Petrolatum (Zinc Oxide Paste (Z-Guard) 1 Applic Applic) 1 applic TOPICAL DAILY PRN PRN Reason: Wound Healing Prednisone (Prednisone 10 Mg Tab) 30 mg PO DAILY [facility] Last Admin: 02/11/23 08:57 Dose: 30 mg Sodium Chloride (Sodium Chloride 0.65% Nasal [place] 44 Ml Btl) 2 spray NASAL QID PRN PRN Reason: Dry Nasal Passages Spironolactone (Spironolactone 25 Mg Tab) 25 mg PO DAILY [facility] Last Admin: 02/11/23 08:58 Dose: 25 mg Vancomycin HCl (Vancomycin 125 Mg Capsule) 250 mg PO QID [facility]; Protocol Last Admin: 02/11/23 12:09 Dose: 250 mg PHYSICAL EXAMINATION: GENERAL: The patient is alert and oriented x3 Well developed, well nourished. Obese. On 2L of oxygen via nasal cannula. HEENT: Pupils are round and equally reacting to light. EOMI. No scleral icterus. No conjunctival pallor. Normocephalic, atraumatic. No pharyngeal erythema. No thyromegaly. CARDIOVASCULAR: S1 and S2 muffled PULMONARY: Diminished breath sounds bilaterally with some scattered rhonchi noted ABDOMEN: Soft, obese. nontender, nondistended, normoactive bowel sounds. No palpable organomegaly. MUSCULOSKELETAL: No joint swelling or deformity. EXTREMITIES: No cyanosis, clubbing, +1 lower extremity pitting edema showing some improvement NEUROLOGICAL: Gross neurological examination did not reveal any focal deficits. Diffuse generalized weakness. SKIN: No rashes. Erythema and excoriation with maceration noted to middle region of bilateral buttock Assessment: Acute hypoxemic hypercapnic respiratory failure secondary to acute COPD exacerbation currently 2 L of oxygen she required BiPAP with an FiO2 of 45% on admission. Altered mental status secondary to acute metabolic and toxic encephalopathy seco ndary to acute renal injury and hypercapnia, currently improved and alert 3 Mild acute pancreatitis per her CT scan lipase has normalized. Acute renal failure with hyperkalemia due to ATN and hypotension Hypokalemia due to diuresis and continued diarrhea Diarrhea, C. diff was negative Acute diastolic heart failure with moderate pulmonary hypertension Chronic hypoxic respiratory failure on 2L as needed at home per patient she is unsure why. Diabetes Mellitus type 2 with hemoglobin A1C 6.6. Transaminitis likely due to volume overload; improving. Chronic Atrial fibrillation with rapid ventricular rate, meds being adjusted Anemia, microcytic iron deficiency, on IV ferrlecit Possible colitis with ileus, improved History of CVA/TIA Hypertension Hyperlipidemia History of memory impairment Chronic neck and back pain status post cervical fusion surgery. Excoriation with maceration of bilateral buttock in the coccyx region with erythema noted secondary to continuous episodes of diarrhea and prolonged immobilization from continued weakness. Excoriation is an expected outcome of continued diarrhea. Anxiety depression and panic disorder, not in active tissue GI prophylaxis on protonix BID DVT prophylaxis on eliquis 2.5 BID renal dosing Full Code Plan: Multiple medical consultations following and white count remains elevated with infectious disease and continued on oral Vanco as patient continues to report multiple episodes of loose stools and diarrhea. C. diff testing was negative. Patient to continue with Questran and per nursing staff has been refusing and will add Imodium and monitor for improvement in diarrhea Replace electrolytes per protocol as potassium was 3.1 Patient's heart rates were elevated into the [id number] an EKG was obtained showing atrial fibrillation with RVR and cardiology is following making adjustments and has increased amiodarone to 200 daily we'll continue with metoprolol. Patient is anticoagulated on oral eliquis and will continue. Continue Questran twice daily Continue low fiber diet for now and slowly advance as tolerated. Recommend lac tose-free. Encouraged increase activity as tolerated and recommend PT/OT therapy daily. Case management following and insurance authorization has been obtained for [facility]. Awaiting clearance from consultations. Patient is encouraged to get up out of bed and ambulate as well as up in the chair for meals. due to multiple complex medical issues, prognosis is guarded The impression and plan of care has been dictated by Giselle Rapp, Nurse Practitioner as directed. Dr. Jun MD I have performed a history and examination and MDM of this patient, discussed the same with the dictator, and agree with the dictator's assessment and plan as written ,documented as a scribe. Based on total visit time, I have performed more than 50% of the visit. Objective - Vital Signs Vital signs: Vital Signs Temp 98.1 F 02/11/23 12:22 Pulse 127 H 02/11/23 12:22 Resp 24 02/11/23 12:22 BP 157/74 02/11/23 12:22 Pulse Ox 97 02/11/23 12:22 FiO2 45 01/31/23 08:00 Intake & Output 02/10/23 02/11/23 02/11/23 18:59 06:59 18:59 Intake Total 640 590 Output Total 4 Balance 640 586 Intake: IV 100 0.9 NS 100 Oral 540 590 Output: Stool 4 Other: Voiding Method Bedside Commode # Bowel Movements 1 - Labs CBC & Chem 7: 02/11/23 05:49 02/11/23 05:49 Labs: Abnormal Lab Results - Last 24 Hours (Table) 02/10/23 02/10/23 02/11/23 Range/Units 17:09 20:10 05:49 WBC 21.32 H (4.50-10.00) X 10*3/uL RBC 3.84 L (4.10-5.20) X 10*6/uL Hgb 8.1 L (12.0-15.0) d/dL Hct 30.2 L (37.2-46.3) % MCV 78.6 L (80.0-97.0) FL MCH 21.1 L (27.0-32.0) pg MCHC 26.8 L (32.0-37.0) d/dL RDW 25.6 H (11.5-14.5) % Neutrophils # 19.11 H (1.80-7.70) X 10*3/uL Monocytes # 1.02 H (0.20-1.00) X 10*3/uL Potassium (3.5-5.5) mmol/L Anion Gap (4.00-12.00) mmol/L BUN (9.0-27.0) mg/dL Creatinine (0.6-1.5) mg/dL Est GFR (CKD-EPI) (>=60) POC Glucose (mg/dL) 171 H 176 H (70-110) mg/dL ALT (8-44) U/L C-Reactive Protein (0.00-0.80) mg/dL Total Protein (6.2-8.2) d/dL Albumin (3.8-4.9) d/dL Albumin/Globulin Ratio (1.60-3.17) Ratio 02/11/23 02/11/23 02/11/23 Range/Units 05:49 07:18 12:22 WBC (4.50-10.00) X 10*3/uL RBC (4.10-5.20) X 10*6/uL Hgb (12.0-15.0) d/dL Hct (37.2-46.3) % MCV (80.0-97.0) FL MCH (27.0-32.0) pg MCHC (32.0-37.0) d/dL RDW (11.5-14.5) % Neutrophils # (1.80-7.70) X 10*3/uL Monocytes # (0.20-1.00) X 10*3/uL Potassium 3.1 L (3.5-5.5) mmol/L Anion Gap 13.10 H (4.00-12.00) mmol/L BUN 33.0 H (9.0-27.0) mg/dL Creatinine 1.8 H (0.6-1.5) mg/dL Est GFR (CKD-EPI) 31 L (>=60) POC Glucose (mg/dL) 118 H 132 H (70-110) mg/dL ALT 91 H (8-44) U/L C-Reactive Protein 3.40 H (0.00-0.80) mg/dL Total Protein 5.8 L (6.2-8.2) d/dL Albumin 3.5 L (3.8-4.9) d/dL Albumin/Globulin Ratio 1.52 L (1.60-3.17) Ratio Microbiology - Last 24 Hours (Table) 02/05/23 09:06 Blood Culture - Final Blood
[2023-02-11 17:21] LABS: Glucose,Whole Blood 199 mg/dL (70-110)
[2023-02-11] MEDS: POTASSIUM CHLORIDE ER 20 MEQ TAB.ER PO SCH ×4 (17:34→22:50)
--- NOTE | 2023-02-11 19:36 | P.PN ---
Subjective Progress Note Date: 02/11/23 This is a 67-year-old female with a known history of hypertension, hyperlipidemia, fibromyalgia, CVA/TIA, memory impairment, anxiety/depression/panic disorder, chronic and ongoing tobacco dependence. She was brought into the emergency room by her to start afternoon after finding her to be quite drowsy. He had trouble getting her up. She had trouble bearing her own weight. She was confused. Apparently she had taken extra Klonopin. Computed tomography scan of the brain revealed chronic small vessel ischemic changes without acute intracranial process. Chest x-ray revealed chronic changes but no acute pulmonary disease. Echocardiogram revealed preserved left ventricular systolic function. Severe right ventricular enlargement with moderate pulmonary hypertension. Abdominal ultrasound revealed no acute process. White count 18.2. Hemoglobin 8.3. Platelets 605. Sodium 129. Potassium 6.4. Bicarb 25. BUN 82. Creatinine 4.25. AST 4961. ALT 4711. Ammonia level XL. Creatinine kinase 471. BNP 11,700. Urine drug screen positive for opiates, oxycodone, tricyclic antidepressants. Initial arterial blood gases on 36% FiO2 revealed a P O2 of 38, pCO2 of 100 and a pH of 7.05. She was placed on BiPAP 15/5 and 32% FiO2 and follow-up blood gases revealed a pO2 of 56, pCO2 of 85 and a pH of 7.11. She is seen today in consultation in the emergency department. She is currently resting on a stretcher. Arousable. Not able to give much information. Follow-up arterial blood gases on 36% FiO2 revealed a pO2 of 69, pCO2 of 63 and a pH of 7.23. Patient was reevaluated today on 01/30/2023, patient remains on BiPAP, continues to be confused, she is arousable, but does not seem to be quite alert and oriented. In spite of being on BiPAP for the last 24 hours, repeat ABG on 40% FiO2 with IPAP of 16 and EPAP of 6 showed a pO2 of 56 E. CO2 74 and pH of 7.22 which is clearly a worsening ABG compared to the ABG noted yesterday. With worsening hypoxia worsening hypercapnia and worsening pH. Hence after evaluating the patient I recommended immediate transfer to the ICU and will continue BiPAP, we will check a follow-up chest x-ray, if the patient does not improve much, and we will continue diuretics, may have to consider intubating the patient and placement on mechanical ventilation. Chest x-ray this morning continues to show cardiomegaly and interstitial edema, doubt underlying pneumonia. WBC count today is 15.7 hemoglobin is 8.2 sodium is 130 potassium 5.8 BUN is 105 creatinine 4.41. Liver enzymes are worsening with worsening AST of over 1500, ALT was close to 5000s, CPK is 471 Procalcitonin is 0.77, CT of the abdomen and pelvis showed mild pancreatitis with colonic dilatation suggestive of colonic ileus. Patient was seen by general surgery on [facility], [place] for her abnormal CT of the abdomen and pelvis and recommended mostly conservative measures Reevaluated today on 01/31/2023, patient was transferred to ICU yesterday, remains in the ICU, remains on BiPAP 15/45%. Overnight the patient was extremely agitated and restless, and kept pulling her BiPAP, hence she was placed on Precedex which is now at 1 mcg/kg/h. For her atrial fibrillation with RVR remains on Cardizem at 5 mg per hour. Patient remains on Zosyn she also remains on Lasix at 40 mg IV push every 8 hours. Chest x-ray is showing definite improvement. Follow-up ABG today on the BiPAP showed significant improvement compared to yesterday with improving oxygenation pO2 105 improving pCO2 down to 60 from 74 and improving pH from 7.22 to 7.34 liver enzymes are elevated but improving and malaise is elevated at 348 and lipase is 1070 chest x-ray is showing improvement in her interstitial edema but not fully resolved. The patient is seen today 02/01/2023 in follow-up in the intensive care unit. She is awake and alert in no acute distress. Sitting up in bed. She is curr ently off the BiPAP. She is maintaining good O2 saturations in the 90s on 4 L/m per nasal cannula. She is receiving normal saline at 20 ML's per hour. White count 14.7. Hemoglobin 7.6. Platelets 452. Sodium 135. Potassium 4.7. Bicarb 30. BUN 123. Creatinine 4.20. Glucose 107. Amylase 372. Lipase 593. She is currently in a -2.1 L balance. She remains on Lasix 60 mg every 8 hours. Continue bronchodilators and steroids. Anticoagulated with Eliquis. Antibiotics in the form of Zosyn. The patient is seen today 02/02/2023 in follow-up in the intensive care unit. She is sitting up in bed. Awake and alert in no acute distress. She is maintaining good O2 saturations in the 90s on 3 L/m per nasal cannula. She has normal saline at 20 ML's per hour. White count 12.9. Hemoglobin 8.1. Platelets 421. Sodium 135. Potassium 4.1. Bicarb 33. BUN 123. Creatinine 4.05. Glucose 142. Lipase 345. She is continued on bronchodilators and steroids. Anticoagulated with Eliquis. Antibiotics in the form of Zosyn. She remains on IV diuretics. Currently in a -1.7 L balance. The patient is seen today 02/03/2023 in follow-up in the intensive care unit. She has a regular medical floor overflow patient. She is currently sitting up in bed. Awake and alert in no acute distress. She is maintaining O2 saturation in the 90s on 3 L/m per nasal cannula. She remains quite weak. She is continued on DuoNeb inhalations, Pulmicort and performs inhalations, IV Solu- Medrol. She remains on antibiotics in the form of Zosyn. Anticoagulated with Eliquis. Remains on IV Lasix. Currently in a -1.3 L balance. Count 14.9. Hemoglobin 8.5. Platelets 413. Sodium 135. Potassium 4.4. Bicarb 36. BUN 118. Creatinine 3.74. Glucose 129. Lipase 267. The patient is seen today 02/04/2023 in follow-up in the intensive care unit. She is a regular medical floor overflow. She is resting comfortably in bed. Awake and alert in no acute distress. Maintaining good O2 saturations in the 90s on 2 L/m per nasal cannula. She does desaturate to 84% on room air. She has normal saline at 20 ML's per hour. She is continued on Lasix 60 mg IV every 12 hours. She remains on Symbicort and DuoNeb inhalations, prednisone taper. Anticoagulated with Eliquis. Remains on antibiotics in the form of Zosyn. She is currently in a -1.8 L balance. White count 19.0. Hemoglobin 8.8. Platelets 410. Sodium 136. Potassium 3.3. Bicarb 36. BUN 109. Creatinine 3.51. Glucose 143. Patient is seen today 02/05/2023 in follow-up in the intensive care unit. She is a regular medical floor overflow still. She is resting comfortably in bed. Awake and alert in no acute distress. Maintaining O2 saturations in the 90s on 2 L/m per nasal cannula. She remains on DuoNeb inhalations, Symbicort, prednisone taper. Anticoagulated with Eliquis. Continues on IV diuretics. Currently in a -1.5 L balance. White count 23.0. Hemoglobin 9.0. Platelets 374. Sodium 136. Potassium 3.7. Bicarb 37. BUN 104. Creatinine 2.73. Glucose 114. The patient is seen today 02/06/2023 in follow-up on the regular medical floor. She is sitting up in bed. Awake and alert in no acute distress. She is maintaining good O2 saturations in the 90s on 3 L/m per nasal cannula. No IV fluids. She is continued on Symbicort, DuoNeb inhalations, prednisone taper. She is on IV diuretics. Anticoagulated with Eliquis. Currently in a -1.6 L balance. White count 23.4. Hemoglobin 9.6. Platelets 320. Sodium 136. Potassium 3.4. Bicarb 39. BUN 91. Creatinine 2.48. Glucose 109. C-reactive protein 4.3. The patient is seen today 02/07/2023 in follow-up on the regular medical floor. She is resting comfortably in bed. Awake and alert in no acute distress. Maintaining O2 saturations in the 90s on 3 L/m per nasal cannula. She remains on DuoNeb inhalations, Symbicort, prednisone taper. Anticoagulated with Eliquis. Remains on oral diuretics. Continued on Diflucan. Computed tomography scan of the abdomen and pelvis revealed acute interstitial edematous pancreatitis. No organizing fluid collection at this time. The cultures revealed no growth. Blood sugar 109. Today's evaluation of 02/08/2023, I'm seeing the patient for a follow-up. I reviewed the records and the patient has improved considerably. I reviewed a series of blood gases has been done on the patient and the patient has shown steady improvement in her carbon dioxide level and a drop down to 60. Most recent pH was at 7.34. She is currently on 3 L of oxygen by nasal cannula. She is not using any form of noninvasive positive pressure ventilation. Respiratory failure is multifactorial including COPD sleep apnea and a combination of drugs that she takes which include MS Contin, Percocet, Flexeril, Klonopin, and she is also taking a sleeping medication. She remains on anticoagulation with Eliquis.The most recent blood work shows a white cell count of 25, hemoglobin of 8.4 and a platelet count of 228, BUN is at 60 with a creatinine of 1.9 and a sodium level is at 137 with a potassium level of 3.5. I noticed that the patient was in acute kidney injury and the creatinine continues to gradually improve as currently down to 1.9. On today's evaluation of 02/09/2023, the patient has essentially the same as compared to yesterday. Remains on oxygen at 2 L/m nasal cannula. No diarrhea. The patient has no nausea or vomiting or abdominal pain. The patient is post pancreatitis. The white cell count remains elevated. The patient remains on IV Zosyn. ID is on the case regarding ongoing leukocytosis. No signs of any respiratory distress. The patient's creatinine remains elevated at 2.0. This is essentially stable compared to yesterday. Sodium level is at 143 with a potassium level of 3.7, CRP level is at 4.3, LFTs show an AST of 27, ALT of 133 and alkaline phosphatase of 68. She is currently on 2 L of O2 nasal cannula with a pulse ox of 93%. She continues to have issues with chronic pain. Quite debilitated. She is in need for physical therapy and rehabilitation. On today's evaluation of 02/10/2023, the patient is awake and alert on room air oxygen. No significant respiratory distress. Not utilizing BiPAP overnight. At same time, the patient is having some diarrhea. Stool for C. diff has been checked that was negative. IV Zosyn was discontinued and the patient was started on oral vancomycin. The patient's echoes down to 20.9 with a hemoglobin of 9.2. No other new complaints otherwise for now. Medications remain unchanged. No abdominal pain. No nausea or emesis. She is having frequent liquid bowel movements. On today's evaluation of 02/05/2023, the patient to have liquidy diarrhea and the patient is at 4 episodes of diarrhea. The patient is currently on oral vancomycin. She is off the Zosyn. She was started on Questran which she declined and the patient was offered Imodium. The patient has no other new complaints. No respiratory difficulties. She is having episodes of tachycardia and she was found to have episodes of A. fib. Cardiology is on the case. She continues to be on metoprolol and amiodarone. She also remains on anticoagulation with Eliquis. Otherwise, no other respiratory difficulties. White cell count remains elevated at 21 with a hemoglobin of 8.1, creatinine continues to improve is currently down to 1.8 with a BUN of 33. Sodium is at 143 with a potassium level of 3.1. LFTs are stable. Objective - Vital Signs Vital signs: Vital Signs Temp 98.1 F 02/11/23 12:22 Pulse 127 H 02/11/23 12:22 Resp 24 02/11/23 12:22 BP 157/74 02/11/23 12:22 Pulse Ox 97 02/11/23 12:22 FiO2 45 01/31/23 08:00 Intake & Output 02/11/23 02/11/23 02/12/23 06:59 18:59 06:59 Intake Total 590 Output Total 4 Balance 586 Intake: Oral 590 Output: Stool 4 Other: Voiding Method Bedside Commode # Voids 3 # Bowel Movements 1 - Exam GENERAL EXAM: Alert, 67-year-old female, resting comfortably in bed, on 3 L nasal cannula, in no apparent distress. HEAD: Normocephalic. EYES: Normal reaction of pupils, equal size. NOSE: Clear with pink turbinates. THROAT: No erythema or exudates. NECK: No masses, no JVD. CHEST: No chest wall deformity. LUNGS: Equal air entry with bilateral end expiratory wheeze, few scattered rhonchi. CVS: S1 and S2 normal with no audible murmur, regular rhythm. ABDOMEN: No hepatosplenomegaly, normal bowel sounds, no guarding or rigidity. SPINE: No scoliosis or deformity SKIN: No rashes CENTRAL NERVOUS SYSTEM: No focal deficits, tone is normal in all 4 extremities. EXTREMITIES: There is no peripheral edema. No clubbing, no cyanosis. Peripheral pulses are intact. - Labs CBC & Chem 7: 02/11/23 05:49 02/11/23 05:49 Labs: Abnormal Lab Results - Last 24 Hours (Table) 02/10/23 02/11/23 02/11/23 Range/Units 20:10 05:49 05:49 WBC 21.32 H (4.50-10.00) X 10*3/uL RBC 3.84 L (4.10-5.20) X 10*6/uL Hgb 8.1 L (12.0-15.0) d/dL Hct 30.2 L (37.2-46.3) % MCV 78.6 L (80.0-97.0) FL MCH 21.1 L (27.0-32.0) pg MCHC 26.8 L (32.0-37.0) d/dL RDW 25.6 H (11.5-14.5) % Neutrophils # 19.11 H (1.80-7.70) X 10*3/uL Monocytes # 1.02 H (0.20-1.00) X 10*3/uL Potassium 3.1 L (3.5-5.5) mmol/L Anion Gap 13.10 H (4.00-12.00) mmol/L BUN 33.0 H (9.0-27.0) mg/dL Creatinine 1.8 H (0.6-1.5) mg/dL Est GFR (CKD-EPI) 31 L (>=60) POC Glucose (mg/dL) 176 H (70-110) mg/dL ALT 91 H (8-44) U/L C-Reactive Protein 3.40 H (0.00-0.80) mg/dL Total Protein 5.8 L (6.2-8.2) d/dL Albumin 3.5 L (3.8-4.9) d/dL Albumin/Globulin Ratio 1.52 L (1.60-3.17) Ratio 02/11/23 02/11/23 02/11/23 Range/Units 07:18 12:22 17:19 WBC (4.50-10.00) X 10*3/uL RBC (4.10-5.20) X 10*6/uL Hgb (12.0-15.0) d/dL Hct (37.2-46.3) % MCV (80.0-97.0) FL MCH (27.0-32.0) pg MCHC (32.0-37.0) d/dL RDW (11.5-14.5) % Neutrophils # (1.80-7.70) X 10*3/uL Monocytes # (0.20-1.00) X 10*3/uL Potassium (3.5-5.5) mmol/L Anion Gap (4.00-12.00) mmol/L BUN (9.0-27.0) mg/dL Creatinine (0.6-1.5) mg/dL Est GFR (CKD-EPI) (>=60) POC Glucose (mg/dL) 118 H 132 H 199 H (70-110) mg/dL ALT (8-44) U/L C-Reactive Protein (0.00-0.80) mg/dL Total Protein (6.2-8.2) d/dL Albumin (3.8-4.9) d/dL Albumin/Globulin Ratio (1.60-3.17) Ratio Microbiology - Last 24 Hours (Table) 02/05/23 09:06 Blood Culture - Final Blood Assessment and Plan Plan: Altered mental status secondary to hypercapnic respiratory failure secondary to possible extra Klonopin use as well as an acute exacerbation of diastolic congestive heart failure, this improved and the patient's mentation is back to normal. Hypercapnic respiratory failure was multifactorial including COPD/MYLENE//medication, recovered and the patient's mental status is back to normal Acute hypoxemic and hypercapnic respiratory failure secondary to above improved and she is currently on room air oxygen Severe pulmonary hypertension with evidence of right-sided heart failure, please refer to the echocardiogram. This could be related to chronic hypoxemia. The patient x-ray shows improved and the patient is currently on room air oxygen maintaining a pulse ox above 90% Metabolic encephalopathy secondary to above, elevated ammonia level, recovered Leukocytosis, the white cell count remains elevated and is being monitored Chronic Anemia Acute kidney injury, current creatinine is improving is down to 1.8 Hyperkalemia Acute transaminitis trending down Acute pancreatitis, lipase improved and at 267. Computed tomography scan of the abdomen and pelvis revealed acute interstitial edematous pancreatitis. No organizing fluid collection at this time. Troponin leak Urine drug screen is positive for opiates, oxycodone and tricyclic antidepressants History of fibromyalgia History of anxiety/depression/panic disorder Hyperlipidemia Hypertension Memory impairment Chronic and ongoing tobacco dependence Chronic atrial fibrillation anticoagulant with Eliquis Diarrhea, stool for C. diff has been negative Plan: Offered Imodium for diarrhea Continue oral vancomycin White cell count is improving The patient currently on room air. Recommend utilizing oxygen overnight to prevent any oxygen desaturations. Continue diuretics monitor renal function, the patient is receiving Lasix 40 mg twice a day by mouth Incentive spirometer Anticoagulants with Eliquis Patient is on amiodarone 200 mg by mouth daily and metoprolol 100 mg by mouth twice a day for rate control bronchodilators in the form of DuoNeb updrafts and Symbicort as maintenance Outpatient sleep study at the later stage Avoid any form of excessive intake of narcotics and benzodiazepines. The chest x-ray was reviewed from today. It shows cardiomegaly. No evidence of any pneumonia at this point Zosyn can be discontinued, and the white cell count is still elevated. Will be related to reactive leukocytosis post pancreatitis. Doubt any intra-abdominal abscesses. Monitor diarrhea, currently inactive in his stool for C. diff has been negative We'll continue to follow
[2023-02-11 20:19] LABS: Glucose,Whole Blood 165 mg/dL (70-110)
--- NOTE | 2023-02-11 21:26 | P.PN ---
Subjective Progress Note Date: 02/10/23 Principal diagnosis: Leukocytosis Patient is a 67-year-old female presenting to the hospital on 01/28/2023 for evaluation of drowsiness confusion patient has been diagnosed with acute hypercapnic respiratory failure with COPD exacerbation, and also have mildly elevated lipase concerning for mild pancreatitis, patient was noticed to have worsening of the white count prompting this infectious disease consultation. On today's evaluation that is 02/10/2023, the patient denies any fever and chills, the patient is breathing comfortably on room air and denies any short ness of breath, the patient denies having any chest pain or cough, patient c/o lower Abdominal pain and diarrhea with multiple watery stools Patient did have a white count is slightly up to 26.37 as of yesterday and CBC is pending from today, creatinine is 2.0, CRP is 3.90 blood cultures currently pending. Objective - Vital Signs Vital signs: Vital Signs Temp 97.6 F 02/10/23 08:00 Pulse 118 H 02/10/23 08:00 Resp 20 02/10/23 08:00 BP 150/52 02/10/23 08:00 Pulse Ox 93 L 02/10/23 08:00 FiO2 45 01/31/23 08:00 Intake & Output 02/09/23 02/10/23 02/10/23 18:59 06:59 18:59 Intake Total 200 640 540 Balance 200 640 540 Intake: IV 80 0.9 NS 80 Intake, IV Titration 200 200 Amount Piperacillin-Tazobactam 3 200 200 .375 gm In Sodium Chloride 0.9% 100 ml @ 25 mls/hr IVPB Q8HR [facility] Rx# :[id number] Oral 360 540 Other: Voiding Method Bedside Commode # Voids 1 - Exam GENERAL DESCRIPTION: An elderly female lying in bed in no distress RESPIRATORY SYSTEM: Unlabored breathing , decreased breath sounds at bases HEART: S1 S2 regular rate and rhythm , ABDOMEN: Soft , no tenderness EXTREMITIES: No edema feet - Labs CBC & Chem 7: 02/11/23 05:49 02/11/23 05:49 Labs: Abnormal Lab Results - Last 24 Hours (Table) 02/09/23 02/09/23 02/09/23 Range/Units 13:42 17:16 20:12 POC Glucose (mg/dL) 170 H 177 H 167 H (70-110) mg/dL 02/10/23 Range/Units 08:09 POC Glucose (mg/dL) 115 H (70-110) mg/dL Assessment and Plan (1) Leukocytosis Current Visit: Yes Status: Acute Code(s): D72.829 - ELEVATED WHITE BLOOD CELL COUNT, UNSPECIFIED SNOMED Code(s): 849888665 (2) Diarrhea Current Visit: Yes Status: Acute Code(s): R19.7 - DIARRHEA, UNSPECIFIED SNOMED Code(s): 74237543 Plan: 1patient with elevated white count and this patient has been in the hospital for almost 8 days with initial presentation for weakness was diagnosed with COPD exacerbation also mild pancreatitis on the basis of CT and elevated amylase and lipase patient did have admission improvement in her white count though over the last 3 days her white count has been trending up however the patient has been afebrile denies any bone pain no tenderness was noticed chest x-ray negative for pneumonia no urinary symptoms no problem with the peripheral IV sites 2patient has developed diarrhea and was exposed to antibiotics C. diff was negative patient to continue with a Questran for symptomatic treatment 3-patient did have a persistent elevated white count, patient did have CT of abdominal pelvis with evidence of pancreatitis and pseudocyst more likely responsible for this elevated white count plus continued use of prednisone as the patient WBC didnot responded to empiric Zosyn will dc zosyn and keeping in mind worsening diarrhea will add vancomycin and see clinical response, Dictation was produced using [employer] dictation software. please excuse any grammatical, word or spelling errors. Time with Patient: Less than 30
--- NOTE | 2023-02-11 21:29 | P.PN ---
Subjective Progress Note Date: 02/11/23 Principal diagnosis: Leukocytosis Patient is a 67-year-old female presenting to the hospital on 01/28/2023 for evaluation of drowsiness confusion patient has been diagnosed with acute hypercapnic respiratory failure with COPD exacerbation, and also have mildly elevated lipase concerning for mild pancreatitis, patient was noticed to have worsening of the white count prompting this infectious disease consultation. On today's evaluation that is 02/11/2023, the patient continues to be afebrile, the patient is breathing comfortably on room air, the patient denies any chest pain or cough, patient did have some lower abdominal pain, and still c/o diarrhea but no blood in stools Patient did have a white count is down to 21.32, creatinine is 1.8, CRP is 3.90 blood cultures currently pending. Objective - Vital Signs Vital signs: Vital Signs Temp 98 F 02/11/23 07:18 Pulse 126 H 02/11/23 07:18 Resp 28 H 02/11/23 07:18 BP 145/83 02/11/23 07:18 Pulse Ox 97 02/11/23 07:18 FiO2 45 01/31/23 08:00 Intake & Output 02/10/23 02/11/23 02/11/23 18:59 06:59 18:59 Intake Total 640 590 Output Total 4 Balance 640 586 Intake: IV 100 0.9 NS 100 Oral 540 590 Output: Stool 4 Other: Voiding Method Bedside Commode # Bowel Movements 1 - Exam GENERAL DESCRIPTION: An elderly female lying in bed in no distress RESPIRATORY SYSTEM: Unlabored breathing , decreased breath sounds at bases HEART: S1 S2 regular rate and rhythm , ABDOMEN: Soft , no tenderness EXTREMITIES: No edema feet - Labs CBC & Chem 7: 02/11/23 05:49 02/11/23 05:49 Labs: Abnormal Lab Results - Last 24 Hours (Table) 02/10/23 02/10/23 02/10/23 Range/Units 12:24 12:58 17:09 WBC 20.9 H (3.8-10.6) k/uL RBC (4.10-5.20) X 10*6/uL Hgb 9.2 L (11.4-16.0) gm/dL Hct 32.3 L (34.0-46.0) % MCV 77.0 L (80.0-100.0) fL MCH 21.9 L (25.0-35.0) pg MCHC 28.4 L (31.0-37.0) g/dL RDW 22.1 H (11.5-15.5) % Neutrophils # 19.9 H (1.3-7.7) k/uL Lymphocytes # 0.4 L (1.0-4.8) k/uL Monocytes # (0.20-1.00) X 10*3/uL Potassium (3.5-5.5) mmol/L Anion Gap (4.00-12.00) mmol/L BUN (9.0-27.0) mg/dL Creatinine (0.6-1.5) mg/dL Est GFR (CKD-EPI) (>=60) POC Glucose (mg/dL) 139 H 171 H (70-110) mg/dL ALT (8-44) U/L C-Reactive Protein (0.00-0.80) mg/dL Total Protein (6.2-8.2) d/dL Albumin (3.8-4.9) d/dL Albumin/Globulin Ratio (1.60-3.17) Ratio 02/10/23 02/11/23 02/11/23 Range/Units 20:10 05:49 05:49 WBC 21.32 H (3.8-10.6) k/uL RBC 3.84 L (4.10-5.20) X 10*6/uL Hgb 8.1 L (11.4-16.0) gm/dL Hct 30.2 L (34.0-46.0) % MCV 78.6 L (80.0-100.0) fL MCH 21.1 L (25.0-35.0) pg MCHC 26.8 L (31.0-37.0) g/dL RDW 25.6 H (11.5-15.5) % Neutrophils # 19.11 H (1.3-7.7) k/uL Lymphocytes # (1.0-4.8) k/uL Monocytes # 1.02 H (0.20-1.00) X 10*3/uL Potassium 3.1 L (3.5-5.5) mmol/L Anion Gap 13.10 H (4.00-12.00) mmol/L BUN 33.0 H (9.0-27.0) mg/dL Creatinine 1.8 H (0.6-1.5) mg/dL Est GFR (CKD-EPI) 31 L (>=60) POC Glucose (mg/dL) 176 H (70-110) mg/dL ALT 91 H (8-44) U/L C-Reactive Protein 3.40 H (0.00-0.80) mg/dL Total Protein 5.8 L (6.2-8.2) d/dL Albumin 3.5 L (3.8-4.9) d/dL Albumin/Globulin Ratio 1.52 L (1.60-3.17) Ratio 02/11/23 Range/Units 07:18 WBC (3.8-10.6) k/uL RBC (4.10-5.20) X 10*6/uL Hgb (11.4-16.0) gm/dL Hct (34.0-46.0) % MCV (80.0-100.0) fL MCH (25.0-35.0) pg MCHC (31.0-37.0) g/dL RDW (11.5-15.5) % Neutrophils # (1.3-7.7) k/uL Lymphocytes # (1.0-4.8) k/uL Monocytes # (0.20-1.00) X 10*3/uL Potassium (3.5-5.5) mmol/L Anion Gap (4.00-12.00) mmol/L BUN (9.0-27.0) mg/dL Creatinine (0.6-1.5) mg/dL Est GFR (CKD-EPI) (>=60) POC Glucose (mg/dL) 118 H (70-110) mg/dL ALT (8-44) U/L C-Reactive Protein (0.00-0.80) mg/dL Total Protein (6.2-8.2) d/dL Albumin (3.8-4.9) d/dL Albumin/Globulin Ratio (1.60-3.17) Ratio Microbiology - Last 24 Hours (Table) 02/05/23 09:06 Blood Culture - Final Blood Assessment and Plan (1) Leukocytosis Current Visit: Yes Status: Acute Code(s): D72.829 - ELEVATED WHITE BLOOD CELL COUNT, UNSPECIFIED SNOMED Code(s): 354026710 (2) Diarrhea Current Visit: Yes Status: Acute Code(s): R19.7 - DIARRHEA, UNSPECIFIED SNOMED Code(s): 40058932 Plan: 1patient with elevated white count and this patient has been in the hospital for almost 8 days with initial presentation for weakness was diagnosed with COPD exacerbation also mild pancreatitis on the basis of CT and elevated amylase and lipase patient did have admission improvement in her white count though over the last 3 days her white count has been trending up however the patient has been afebrile denies any bone pain no tenderness was noticed chest x-ray negative for pneumonia no urinary symptoms no problem with the peripheral IV sites 2patient has developed diarrhea and was exposed to antibiotics C. diff was negative patient to continue with a Questran for symptomatic treatment 3-patient did have a persistent elevated white count, patient did have CT of abdominal pelvis with evidence of pancreatitis and pseudocyst more likely responsible for this elevated white count plus continued use of prednisone as the patient WBC didnot responded to empiric Zosyn , zosyn was discontinued 4- Pt was started on vancomycin and WBC has slightly improved , will continue vanco and check CBC with am labs Dictation was produced using [employer] dictation software. please excuse any grammatical, word or spelling errors. Time with Patient: Less than 30
[2023-02-12] MEDS: METOCLOPRAMIDE 5 MG/ML 2 ML VIAL IVP SCH ×4 (01:57→17:49)
[2023-02-12] MEDS: ACETAMINOPHEN TAB 325 MG TAB PO PRN ×3 (06:32→22:20)
[2023-02-12 07:29] LABS: Glucose,Whole Blood 129 mg/dL (70-110)
[2023-02-12] MEDS: INSULIN ASPART (NovoLOG) 100 UNIT/ML VIAL SQ SCH ×4 (07:40→22:37)
[2023-02-12] MEDS: PANTOPRAZOLE 40 MG/10 ML VIAL IVP SCH ×2 (07:46→22:20)
[2023-02-12] MEDS: CHOLESTYRAMINE (WITH SUGAR) 4 GM PACKET PO SCH ×2 (07:46→17:49)
[2023-02-12] MEDS: LORATADINE 10 MG TAB PO SCH (07:47)
[2023-02-12] MEDS: predniSONE 10 MG TAB PO SCH (07:47)
[2023-02-12] MEDS: DULoxetine HCL 60 MG CAPSULE.DR PO SCH (07:48)
[2023-02-12] MEDS: APIXABAN 2.5 MG TABLET PO SCH ×2 (07:48→22:21)
[2023-02-12] MEDS: FUROSEMIDE 40 MG TAB PO SCH ×2 (07:48→14:51)
[2023-02-12] MEDS: METOPROLOL SUCCINATE (ER) 25 MG TAB.ER.24H PO SCH ×2 (07:48→07:50)
[2023-02-12] MEDS: AMIODARONE 200 MG TAB PO SCH (07:48)
[2023-02-12] MEDS: SPIRONOLACTONE 25 MG TAB PO SCH (07:48)
[2023-02-12] MEDS: VANCOMYCIN 125 MG CAPSULE PO SCH ×4 (07:49→22:22)
[2023-02-12] MEDS: IPRATROPIUM-ALBUTEROL 3 ML NEB INHALATION SCH ×4 (08:30→20:37)
[2023-02-12] MEDS: SYMBICORT 160-4.5 MCG INHALER INHALATION SCH ×2 (08:30→20:37)
[2023-02-12] MEDS: DAPAGLIFLOZIN PROPANEDIOL 10 MG TABLET PO SCH (08:48)
--- NOTE | 2023-02-12 09:11 | P.PN ---
Subjective Patient is seen in follow-up for acute kidney injury. Renal function stable with creatinine 1.8 dated 02/11/2023. Nonoliguric. On po Lasix. Tolerating oral intake. Vital signs are stable. General: No acute distress. HEENT: Head exam is unremarkable. On nasal cannula. LUNGS: No audible rhonchi or wheezes. HEART: Rate and Rhythm are regular. ABDOMEN: Nontender. EXTREMITITES: Trace edema. Objective - Vital Signs Vital signs: Vital Signs Temp 98.2 F 02/12/23 07:36 Pulse 131 H 02/12/23 07:36 Resp 28 H 02/12/23 07:36 BP 137/79 02/12/23 07:36 Pulse Ox 93 L 02/12/23 07:36 FiO2 45 01/31/23 08:00 Intake & Output 02/11/23 02/12/23 02/12/23 18:59 06:59 18:59 Output Total 4 Balance -4 Output: Stool 4 Other: Voiding Method Bedside Commode # Voids 3 # Bowel Movements 1 - Labs CBC & Chem 7: 02/11/23 05:49 02/11/23 05:49 Labs: Abnormal Lab Results - Last 24 Hours (Table) 02/11/23 02/11/23 02/11/23 Range/Units 05:49 05:49 12:22 WBC 21.32 H (4.50-10.00) X 10*3/uL RBC 3.84 L (4.10-5.20) X 10*6/uL Hgb 8.1 L (12.0-15.0) d/dL Hct 30.2 L (37.2-46.3) % MCV 78.6 L (80.0-97.0) FL MCH 21.1 L (27.0-32.0) pg MCHC 26.8 L (32.0-37.0) d/dL RDW 25.6 H (11.5-14.5) % Neutrophils # 19.11 H (1.80-7.70) X 10*3/uL Monocytes # 1.02 H (0.20-1.00) X 10*3/uL Potassium 3.1 L (3.5-5.5) mmol/L Anion Gap 13.10 H (4.00-12.00) mmol/L BUN 33.0 H (9.0-27.0) mg/dL Creatinine 1.8 H (0.6-1.5) mg/dL Est GFR (CKD-EPI) 31 L (>=60) POC Glucose (mg/dL) 132 H (70-110) mg/dL ALT 91 H (8-44) U/L C-Reactive Protein 3.40 H (0.00-0.80) mg/dL Total Protein 5.8 L (6.2-8.2) d/dL Albumin 3.5 L (3.8-4.9) d/dL Albumin/Globulin Ratio 1.52 L (1.60-3.17) Ratio 02/11/23 02/11/23 02/12/23 Range/Units 17:19 20:16 07:28 WBC (4.50-10.00) X 10*3/uL RBC (4.10-5.20) X 10*6/uL Hgb (12.0-15.0) d/dL Hct (37.2-46.3) % MCV (80.0-97.0) FL MCH (27.0-32.0) pg MCHC (32.0-37.0) d/dL RDW (11.5-14.5) % Neutrophils # (1.80-7.70) X 10*3/uL Monocytes # (0.20-1.00) X 10*3/uL Potassium (3.5-5.5) mmol/L Anion Gap (4.00-12.00) mmol/L BUN (9.0-27.0) mg/dL Creatinine (0.6-1.5) mg/dL Est GFR (CKD-EPI) (>=60) POC Glucose (mg/dL) 199 H 165 H 129 H (70-110) mg/dL ALT (8-44) U/L C-Reactive Protein (0.00-0.80) mg/dL Total Protein (6.2-8.2) d/dL Albumin (3.8-4.9) d/dL Albumin/Globulin Ratio (1.60-3.17) Ratio Assessment and Plan Plan: Assessment: 1. Acute kidney injury secondary to ATN secondary to hypotension and component of cardiorenal syndrome. UA benign. No hydronephrosis noted on CT. Creatinine 1 in July 2021. Creatinine peaked at 4.5 at this admission and stable at 1.8 dated 02/11/2023. Nonoliguric. 2. Volume overload. Improved with diuresis. 3. Acute on chronic diastolic CHF with moderate tricuspid regurgitation and pulmonary hypertension. 4. Acute pancreatitis. On low fiber diet now. 5. Anemia with severe iron deficiency s/p IV iron. On Aranesp. 6. Acute hypoxic and hypercapnic respiratory failure. 7. Hypokalemia from diuresis. Replaced. Plan: Maintain Lasix. Also on Aldactone. Also on [id number]. Encourage oral intake. Avoid nephrotoxins. Repeat BMP and magnesium level 2-3 days postdischarge. Follow up outpatient 1 week post discharge.
[2023-02-12 09:12] LABS: Basophils # (A) 0.04 X 10*3/uL (0.00-0.10); Basophils % (A) 0.2 %; Eosinophils # (A) 0.03 X 10*3/uL (0.04-0.35); Eosinophils % (A) 0.1 %; HCT 30.2 % (37.2-46.3); HGB 8.3 d/dL (12.0-15.0); Lymphocytes % (A) 4.6 %; MCH 21.2 pg (27.0-32.0); MCHC 27.5 d/dL (32.0-37.0); MCV 77.2 FL (80.0-97.0); Monocytes # (A) 1.31 X 10*3/uL (0.20-1.00); NRBC Per 100 WBC 0 X 10*3/uL (0.00-0.01); Neutrophils # (A) 23.61 X 10*3/uL (1.80-7.70); Neutrophils % (A) 89.5 %; Platelet Count 154 X 10*3/uL (140-440); RBC 3.91 X 10*6/uL (4.10-5.20); RDW 26.2 % (11.5-14.5); WBC 26.36 X 10*3/uL (4.50-10.00)
[2023-02-12 09:13] LABS: ALT 73 U/L (8-44); AST 16 U/L (13-35); Albumin 3.5 d/dL (3.8-4.9); Albumin/Globulin Ratio 1.46 Ratio (1.60-3.17); Alkaline Phosphatase 68 U/L (41-126); BUN/Creat Ratio 18.27 Ratio (12.00-20.00); Blood Urea Nitrogen 27.4 mg/dL (9.0-27.0); Calcium 9.6 mg/dL (8.7-10.3); Carbon Dioxide 31.2 mmol/L (21.6-31.8); Chloride 106 mmol/L (96-109); Globulin 2.4 d/dL (1.6-3.3); Glucose 115 mg/dL (70-110); Potassium 3.3 mmol/L (3.5-5.5); Sodium 143 mmol/L (135-145); Total Bilirubin 0.5 mg/dL (0.3-1.2); Total Protein 5.9 d/dL (6.2-8.2)
[2023-02-12] MEDS: METOPROLOL SUCCINATE (ER) 100 MG TAB.ER.24H PO SCH ×2 (12:12→22:26)
[2023-02-12] MEDS: FLUCONAZOLE 100 MG TAB PO SCH (12:12)
[2023-02-12 12:19] LABS: Glucose,Whole Blood 145 mg/dL (70-110)
[2023-02-12] MEDS ORDERED: IOPAMIDOL CONTRAST (ORAL USE) VIAL PO PRN (12:33)
[2023-02-12] MEDS: ONDANSETRON 4 MG/2 ML VIAL IVP PRN (12:54)
--- NOTE | 2023-02-12 14:15 | P.PN ---
Subjective HISTORY OF PRESENT ILLNESS: 02/07/2023 Patient is stable from cardiac vessel standpoint. She is having good diuresis with IV Lasix 60 mg twice a day. Her lower swelling has improved significantly. She is tolerating oral diet. Rate controlled atrial fibrillation on telemetry 02/08/2023 Patient examined this morning. She is sitting in the chair. She denies chest pain or pressure. Denies SOB. Remains on oral lasix. BMP from this morning is currently pending. Patient is currently not on telemetry. Documented heart rates 100-120. Blood pressure stable. 02/09/2023 Patient examined this morning. She is sitting up in the chair. Patient denies chest pain or pressure. She denies shortness of breath. Blood pressure stable. Telemetry reveals atrial fibrillation. Heart rate is in the low 100s. 02/10/2023 Patient examined this morning at the bedside. Patient denies chest pain or pressure. She currently denies shortness of breath. Vital signs are stable. Telemetry reveals atrial fibrillation with a heart rate in the low 100s. She continues to report diarrhea. C. diff is negative. She is receiving antibiotics per infectious disease. WBC yesterday 26.37. 02/11/2023 Patient examined this morning at the bedside. Patient denies chest pain or pressure. She denies shortness of breath. Blood pressure has improved with a systolic in the 140s. Telemetry reveals atrial fibrillation with a heart rate in the low 100s. 02/12/2023 Patient examined this afternoon at the bedside. Patient denies chest pain or pressure. She denies shortness of breath. Blood pressure is stable. Telemetry reveals atrial fibrillation with a heart rate around 115. Patient said white count continues to be elevated. Infectious disease ordered CT abdomen and pelvis. Patient is refusing to have this completed and is very adamant about being discharged home today. PHYSICAL EXAM: VITAL SIGNS: Reviewed. GENERAL: Well-developed in no acute distress. NECK: Supple. No JVD or thyromegaly LUNGS: Respirations even and unlabored. Lungs diminished bilaterally. HEART: Irregular rate and rhythm. S1 and S2 heard. EXTREMITIES: Normal range of motion. No clubbing or cyanosis. Peripheral pulses intact. Bilateral lower extremity edema present, improved. ASSESSMENT: Acute hypoxic and hypercapnic respiratory failure Acute COPD exacerbation Leukocytosis Acute heart failure with preserved ejection fraction Permanent atrial fibrillation with RVR Pancreatitis with pseudocyst Acute kidney injury Former nicotine dependence PLAN: Continue current cardiac medications. Continue telemetry monitoring. Will consider right-sided heart catheterization on an outpatient basis secondary to significant right ventricular dilatation with concerns of possible increased pulmonary pressures Continue antibiotics per infectious disease. CT abdomen and pelvis ordered however patient is refusing. Patient is adamant about being discharged home today. Will defer discharge to internal medicine Further recommendations pending patient's course Nurse practitioner note has been reviewed by physician. Signing provider agrees with the documented findings, assessment, and plan of care. Objective - Vital Signs Vital signs: Vital Signs Temp 99 F 02/12/23 13:23 Pulse 120 H 02/12/23 13:23 Resp 32 H 02/12/23 13:23 BP 139/90 02/12/23 13:23 Pulse Ox 98 02/12/23 13:23 FiO2 45 01/31/23 08:00 Intake & Output 02/11/23 02/12/23 02/12/23 18:59 06:59 18:59 Output Total 4 4 Balance -4 -4 Output: Stool 4 4 Other: Voiding Method Bedside Commode Bedside Commode # Voids 3 1 # Bowel Movements 1 1 - Labs CBC & Chem 7: 02/12/23 05:58 02/12/23 05:58 Labs: Abnormal Lab Results - Last 24 Hours (Table) 02/11/23 02/11/23 02/12/23 Range/Units 17:19 20:16 05:58 WBC 26.36 H (4.50-10.00) X 10*3/uL RBC 3.91 L (4.10-5.20) X 10*6/uL Hgb 8.3 L (12.0-15.0) d/dL Hct 30.2 L (37.2-46.3) % MCV 77.2 L (80.0-97.0) FL MCH 21.2 L (27.0-32.0) pg MCHC 27.5 L (32.0-37.0) d/dL RDW 26.2 H (11.5-14.5) % Neutrophils # 23.61 H (1.80-7.70) X 10*3/uL Monocytes # 1.31 H (0.20-1.00) X 10*3/uL Eosinophils # 0.03 L (0.04-0.35) X 10*3/uL Potassium (3.5-5.5) mmol/L BUN (9.0-27.0) mg/dL Est GFR (CKD-EPI) (>=60) Glucose (70-110) mg/dL POC Glucose (mg/dL) 199 H 165 H (70-110) mg/dL ALT (8-44) U/L C-Reactive Protein (0.00-0.80) mg/dL Total Protein (6.2-8.2) d/dL Albumin (3.8-4.9) d/dL Albumin/Globulin Ratio (1.60-3.17) Ratio 02/12/23 02/12/23 02/12/23 Range/Units 05:58 07:28 12:18 WBC (4.50-10.00) X 10*3/uL RBC (4.10-5.20) X 10*6/uL Hgb (12.0-15.0) d/dL Hct (37.2-46.3) % MCV (80.0-97.0) FL MCH (27.0-32.0) pg MCHC (32.0-37.0) d/dL RDW (11.5-14.5) % Neutrophils # (1.80-7.70) X 10*3/uL Monocytes # (0.20-1.00) X 10*3/uL Eosinophils # (0.04-0.35) X 10*3/uL Potassium 3.3 L (3.5-5.5) mmol/L BUN 27.4 H (9.0-27.0) mg/dL Est GFR (CKD-EPI) 38 L (>=60) Glucose 115 H (70-110) mg/dL POC Glucose (mg/dL) 129 H 145 H (70-110) mg/dL ALT 73 H (8-44) U/L C-Reactive Protein 3.60 H (0.00-0.80) mg/dL Total Protein 5.9 L (6.2-8.2) d/dL Albumin 3.5 L (3.8-4.9) d/dL Albumin/Globulin Ratio 1.46 L (1.60-3.17) Ratio
--- NOTE | 2023-02-12 14:51 | CT ---
EXAMINATION TYPE: CT abdomen pelvis wo con DATE OF EXAM: 02/12/2023 COMPARISON: HISTORY: abdominal pain, pancreatitis CT DLP: 892.5 mGycm Automated exposure control for dose reduction was used. TECHNIQUE: Helical acquisition of images was performed from the lung bases through the pelvis. FINDINGS: LOWER CHEST : The visualized lung bases are clear. There are no pleural or pericardial effusions. ABDOMEN: Liver and Biliary system: Normal. Adrenal glands: Normal. Kidneys and ureters: There are no renal stones or hydronephrosis. No ureteral stones are present.. Spleen: Normal. Pancreas: There is a masslike heterogeneity throughout the pancreatic head of indeterminate signific ance. This is limited in evaluation without contrast. This could potentially relate to pancreatitis a s there does appear to be some mild surrounding stranding around the pancreas as well, however a cont rast enhanced study would be recommended for further evaluation. This can be performed on a nonemerge nt basis.. Gallbladder: Normal. Lymph nodes, Peritoneum and mesentery: There is no mesenteric or retroperitoneal lymphadenopathy. Gastrointestinal tract: There are no dilated loops of bowel or free intraperitoneal air. . The appe ndix is normal. There is mild sigmoid colonic diverticulosis without evidence of diverticulitis. Aorta/IVC: There is moderate vascular calcification throughout the abdominal aorta without evidence of aneurysmal dilation. IVC normal. Abdominal wall: Normal. PELVIS: Fluid: There is no free fluid in the pelvis. Lymph Nodes: There is no pelvic or inguinal lymphadenopathy.. Urinary bladder: Normal. BONES: There are no osseous destructive lesions.. ADDITIONAL SIGNIFICANT FINDINGS: None. IMPRESSION: 1. Masslike heterogeneity throughout the pancreatic head of indeterminate significance. This is limit ed in evaluation without contrast. This could potentially relate to the pancreatitis as there is stra nding throughout the pancreas compatible with acute pancreatitis. However, a contrast-enhanced study would be recommended for further evaluation. 2. No bowel obstruction or appendicitis. 3. No renal stones or hydronephrosis.
--- NOTE | 2023-02-12 15:20 | P.PN ---
Subjective Progress Note Date: 02/12/23 Principal diagnosis: Leukocytosis Patient is a 67-year-old female presenting to the hospital on 01/28/2023 for evaluation of drowsiness confusion patient has been diagnosed with acute hypercapnic respiratory failure with COPD exacerbation, and also have mildly elevated lipase concerning for mild pancreatitis, patient was noticed to have worsening of the white count prompting this infectious disease consultation. On today's evaluation that is 02/12/2023, the patient denies any fever or any chills, the patient is breathing comfortably on room air and no need for bernard pplemental oxygen, the patient denies any chest pain or cough, patient denies any nausea/vomiting did have improvement her diarrhea and mild abdominal pain epigastric area Patient did have a white count is up to 26.36, creatinine is 1.5, CRP is 3.90 blood cultures has been negative. Objective - Vital Signs Vital signs: Vital Signs Temp 98.2 F 02/12/23 07:36 Pulse 131 H 02/12/23 07:36 Resp 28 H 02/12/23 07:36 BP 137/79 02/12/23 07:36 Pulse Ox 93 L 02/12/23 07:36 FiO2 45 01/31/23 08:00 Intake & Output 02/11/23 02/12/23 02/12/23 18:59 06:59 18:59 Output Total 4 Balance -4 Output: Stool 4 Other: Voiding Method Bedside Commode # Voids 3 # Bowel Movements 1 - Exam GENERAL DESCRIPTION: An elderly female lying in bed in no distress RESPIRATORY SYSTEM: Unlabored breathing , decreased breath sounds at bases HEART: S1 S2 regular rate and rhythm , ABDOMEN: Soft , no tenderness EXTREMITIES: No edema feet - Labs CBC & Chem 7: 02/12/23 05:58 02/12/23 05:58 Labs: Abnormal Lab Results - Last 24 Hours (Table) 02/11/23 02/11/23 02/11/23 Range/Units 05:49 05:49 12:22 WBC 21.32 H (4.50-10.00) X 10*3/uL RBC 3.84 L (4.10-5.20) X 10*6/uL Hgb 8.1 L (12.0-15.0) d/dL Hct 30.2 L (37.2-46.3) % MCV 78.6 L (80.0-97.0) FL MCH 21.1 L (27.0-32.0) pg MCHC 26.8 L (32.0-37.0) d/dL RDW 25.6 H (11.5-14.5) % Neutrophils # 19.11 H (1.80-7.70) X 10*3/uL Monocytes # 1.02 H (0.20-1.00) X 10*3/uL Eosinophils # (0.04-0.35) X 10*3/uL Potassium 3.1 L (3.5-5.5) mmol/L Anion Gap 13.10 H (4.00-12.00) mmol/L BUN 33.0 H (9.0-27.0) mg/dL Creatinine 1.8 H (0.6-1.5) mg/dL Est GFR (CKD-EPI) 31 L (>=60) Glucose (70-110) mg/dL POC Glucose (mg/dL) 132 H (70-110) mg/dL ALT 91 H (8-44) U/L C-Reactive Protein 3.40 H (0.00-0.80) mg/dL Total Protein 5.8 L (6.2-8.2) d/dL Albumin 3.5 L (3.8-4.9) d/dL Albumin/Globulin Ratio 1.52 L (1.60-3.17) Ratio 02/11/23 02/11/23 02/12/23 Range/Units 17:19 20:16 05:58 WBC 26.36 H (4.50-10.00) X 10*3/uL RBC 3.91 L (4.10-5.20) X 10*6/uL Hgb 8.3 L (12.0-15.0) d/dL Hct 30.2 L (37.2-46.3) % MCV 77.2 L (80.0-97.0) FL MCH 21.2 L (27.0-32.0) pg MCHC 27.5 L (32.0-37.0) d/dL RDW 26.2 H (11.5-14.5) % Neutrophils # 23.61 H (1.80-7.70) X 10*3/uL Monocytes # 1.31 H (0.20-1.00) X 10*3/uL Eosinophils # 0.03 L (0.04-0.35) X 10*3/uL Potassium (3.5-5.5) mmol/L Anion Gap (4.00-12.00) mmol/L BUN (9.0-27.0) mg/dL Creatinine (0.6-1.5) mg/dL Est GFR (CKD-EPI) (>=60) Glucose (70-110) mg/dL POC Glucose (mg/dL) 199 H 165 H (70-110) mg/dL ALT (8-44) U/L C-Reactive Protein (0.00-0.80) mg/dL Total Protein (6.2-8.2) d/dL Albumin (3.8-4.9) d/dL Albumin/Globulin Ratio (1.60-3.17) Ratio 02/12/23 02/12/23 Range/Units 05:58 07:28 WBC (4.50-10.00) X 10*3/uL RBC (4.10-5.20) X 10*6/uL Hgb (12.0-15.0) d/dL Hct (37.2-46.3) % MCV (80.0-97.0) FL MCH (27.0-32.0) pg MCHC (32.0-37.0) d/dL RDW (11.5-14.5) % Neutrophils # (1.80-7.70) X 10*3/uL Monocytes # (0.20-1.00) X 10*3/uL Eosinophils # (0.04-0.35) X 10*3/uL Potassium 3.3 L (3.5-5.5) mmol/L Anion Gap (4.00-12.00) mmol/L BUN 27.4 H (9.0-27.0) mg/dL Creatinine (0.6-1.5) mg/dL Est GFR (CKD-EPI) 38 L (>=60) Glucose 115 H (70-110) mg/dL POC Glucose (mg/dL) 129 H (70-110) mg/dL ALT 73 H (8-44) U/L C-Reactive Protein 3.60 H (0.00-0.80) mg/dL Total Protein 5.9 L (6.2-8.2) d/dL Albumin 3.5 L (3.8-4.9) d/dL Albumin/Globulin Ratio 1.46 L (1.60-3.17) Ratio Assessment and Plan (1) Leukocytosis Current Visit: Yes Status: Acute Code(s): D72.829 - ELEVATED WHITE BLOOD CELL COUNT, UNSPECIFIED SNOMED Code(s): 012532540 (2) Diarrhea Current Visit: Yes Status: Acute Code(s): R19.7 - DIARRHEA, UNSPECIFIED SNOMED Code(s): 18035936 Plan: 1patient with elevated white count and this patient has been in the hospital for almost 8 days with initial presentation for weakness was diagnosed with COPD exacerbation also mild pancreatitis on the basis of CT and elevated amylase and lipase patient did have admission improvement in her white count though over the last 3 days her white count has been trending up however the patient has been afebrile denies any bone pain no tenderness was noticed chest x-ray negative for pneumonia no urinary symptoms no problem with the peripheral IV sites 2patient has developed diarrhea and was exposed to antibiotics C. diff was negative patient to continue with a Questran for symptomatic treatment 3-patient did have a persistent elevated white count, for follow-up on the pancreatic pseudocyst and to see if it is any evidence of colitis and any further treatment with oral vancomycin, will repeat a CBC and inflammatory markers with a.m. lab Dictation was produced using [employer] dictation software. please excuse any grammatical, word or spelling errors. Time with Patient: Less than 30
--- NOTE | 2023-02-12 15:43 | P.PN ---
Subjective Progress Note Date: 02/12/23 This is a 67-year-old female with a known history of hypertension, hyperlipidemia, fibromyalgia, CVA/TIA, memory impairment, anxiety/depression/panic disorder, chronic and ongoing tobacco dependence. She was brought into the emergency room by her to start afternoon after finding her to be quite drowsy. He had trouble getting her up. She had trouble bearing her own weight. She was confused. Apparently she had taken extra Klonopin. Computed tomography scan of the brain revealed chronic small vessel ischemic changes without acute intracranial process. Chest x-ray revealed chronic changes but no acute pulmonary disease. Echocardiogram revealed preserved left ventricular systolic function. Severe right ventricular enlargement with moderate pulmonary hypertension. Abdominal ultrasound revealed no acute process. White count 18.2. Hemoglobin 8.3. Platelets 605. Sodium 129. Potassium 6.4. Bicarb 25. BUN 82. Creatinine 4.25. AST 4961. ALT 4711. Ammonia level XL. Creatinine kinase 471. BNP 11,700. Urine drug screen positive for opiates, oxycodone, tricyclic antidepressants. Initial arterial blood gases on 36% FiO2 revealed a P O2 of 38, pCO2 of 100 and a pH of 7.05. She was placed on BiPAP 15/5 and 32% FiO2 and follow-up blood gases revealed a pO2 of 56, pCO2 of 85 and a pH of 7.11. She is seen today in consultation in the emergency department. She is currently resting on a stretcher. Arousable. Not able to give much information. Follow-up arterial blood gases on 36% FiO2 revealed a pO2 of 69, pCO2 of 63 and a pH of 7.23. Patient was reevaluated today on 01/30/2023, patient remains on BiPAP, continues to be confused, she is arousable, but does not seem to be quite alert and oriented. In spite of being on BiPAP for the last 24 hours, repeat ABG on 40% FiO2 with IPAP of 16 and EPAP of 6 showed a pO2 of 56 E. CO2 74 and pH of 7.22 which is clearly a worsening ABG compared to the ABG noted yesterday. With worsening hypoxia worsening hypercapnia and worsening pH. Hence after evaluating the patient I recommended immediate transfer to the ICU and will continue BiPAP, we will check a follow-up chest x-ray, if the patient does not improve much, and we will continue diuretics, may have to consider intubating the patient and placement on mechanical ventilation. Chest x-ray this morning continues to show cardiomegaly and interstitial edema, doubt underlying pneumonia. WBC count today is 15.7 hemoglobin is 8.2 sodium is 130 potassium 5.8 BUN is 105 creatinine 4.41. Liver enzymes are worsening with worsening AST of over 1500, ALT was close to 5000s, CPK is 471 Procalcitonin is 0.77, CT of the abdomen and pelvis showed mild pancreatitis with colonic dilatation suggestive of colonic ileus. Patient was seen by general surgery on [facility] for her abnormal CT of the abdomen and pelvis and recommended mostly conservative measures Reevaluated today on 01/31/2023, patient was transferred to ICU yesterday, remains in the ICU, remains on BiPAP 15/45%. Overnight the patient was extremely agitated and restless, and kept pulling her BiPAP, hence she was placed on Precedex which is now at 1 mcg/kg/h. For her atrial fibrillation with RVR remains on Cardizem at 5 mg per hour. Patient remains on Zosyn she also remains on Lasix at 40 mg IV push every 8 hours. Chest x-ray is showing definite improvement. Follow-up ABG today on the BiPAP showed significant improvement compared to yesterday with improving oxygenation pO2 105 improving pCO2 down to 60 from 74 and improving pH from 7.22 to 7.34 liver enzymes are elevated but improving and malaise is elevated at 348 and lipase is 1070 chest x-ray is showing improvement in her interstitial edema but not fully resolved. The patient is seen today 02/01/2023 in follow-up in the intensive care unit. She is awake and alert in no acute distress. Sitting up in bed. She is curr ently off the BiPAP. She is maintaining good O2 saturations in the 90s on 4 L/m per nasal cannula. She is receiving normal saline at 20 ML's per hour. White count 14.7. Hemoglobin 7.6. Platelets 452. Sodium 135. Potassium 4.7. Bicarb 30. BUN 123. Creatinine 4.20. Glucose 107. Amylase 372. Lipase 593. She is currently in a -2.1 L balance. She remains on Lasix 60 mg every 8 hours. Continue bronchodilators and steroids. Anticoagulated with Eliquis. Antibiotics in the form of Zosyn. The patient is seen today 02/02/2023 in follow-up in the intensive care unit. She is sitting up in bed. Awake and alert in no acute distress. She is maintaining good O2 saturations in the 90s on 3 L/m per nasal cannula. She has normal saline at 20 ML's per hour. White count 12.9. Hemoglobin 8.1. Platelets 421. Sodium 135. Potassium 4.1. Bicarb 33. BUN 123. Creatinine 4.05. Glucose 142. Lipase 345. She is continued on bronchodilators and steroids. Anticoagulated with Eliquis. Antibiotics in the form of Zosyn. She remains on IV diuretics. Currently in a -1.7 L balance. The patient is seen today 02/03/2023 in follow-up in the intensive care unit. She has a regular medical floor overflow patient. She is currently sitting up in bed. Awake and alert in no acute distress. She is maintaining O2 saturation in the 90s on 3 L/m per nasal cannula. She remains quite weak. She is continued on DuoNeb inhalations, Pulmicort and performs inhalations, IV Solu- Medrol. She remains on antibiotics in the form of Zosyn. Anticoagulated with Eliquis. Remains on IV Lasix. Currently in a -1.3 L balance. Count 14.9. Hemoglobin 8.5. Platelets 413. Sodium 135. Potassium 4.4. Bicarb 36. BUN 118. Creatinine 3.74. Glucose 129. Lipase 267. The patient is seen today 02/04/2023 in follow-up in the intensive care unit. She is a regular medical floor overflow. She is resting comfortably in bed. Awake and alert in no acute distress. Maintaining good O2 saturations in the 90s on 2 L/m per nasal cannula. She does desaturate to 84% on room air. She has normal saline at 20 ML's per hour. She is continued on Lasix 60 mg IV every 12 hours. She remains on Symbicort and DuoNeb inhalations, prednisone taper. Anticoagulated with Eliquis. Remains on antibiotics in the form of Zosyn. She is currently in a -1.8 L balance. White count 19.0. Hemoglobin 8.8. Platelets 410. Sodium 136. Potassium 3.3. Bicarb 36. BUN 109. Creatinine 3.51. Glucose 143. Patient is seen today 02/05/2023 in follow-up in the intensive care unit. She is a regular medical floor overflow still. She is resting comfortably in bed. Awake and alert in no acute distress. Maintaining O2 saturations in the 90s on 2 L/m per nasal cannula. She remains on DuoNeb inhalations, Symbicort, prednisone taper. Anticoagulated with Eliquis. Continues on IV diuretics. Currently in a -1.5 L balance. White count 23.0. Hemoglobin 9.0. Platelets 374. Sodium 136. Potassium 3.7. Bicarb 37. BUN 104. Creatinine 2.73. Glucose 114. The patient is seen today 02/06/2023 in follow-up on the regular medical floor. She is sitting up in bed. Awake and alert in no acute distress. She is maintaining good O2 saturations in the 90s on 3 L/m per nasal cannula. No IV fluids. She is continued on Symbicort, DuoNeb inhalations, prednisone taper. She is on IV diuretics. Anticoagulated with Eliquis. Currently in a -1.6 L balance. White count 23.4. Hemoglobin 9.6. Platelets 320. Sodium 136. Potassium 3.4. Bicarb 39. BUN 91. Creatinine 2.48. Glucose 109. C-reactive protein 4.3. The patient is seen today 02/07/2023 in follow-up on the regular medical floor. She is resting comfortably in bed. Awake and alert in no acute distress. Maintaining O2 saturations in the 90s on 3 L/m per nasal cannula. She remains on DuoNeb inhalations, Symbicort, prednisone taper. Anticoagulated with Eliquis. Remains on oral diuretics. Continued on Diflucan. Computed tomography scan of the abdomen and pelvis revealed acute interstitial edematous pancreatitis. No organizing fluid collection at this time. The cultures revealed no growth. Blood sugar 109. Today's evaluation of 02/08/2023, I'm seeing the patient for a follow-up. I reviewed the records and the patient has improved considerably. I reviewed a series of blood gases has been done on the patient and the patient has shown steady improvement in her carbon dioxide level and a drop down to 60. Most recent pH was at 7.34. She is currently on 3 L of oxygen by nasal cannula. She is not using any form of noninvasive positive pressure ventilation. Respiratory failure is multifactorial including COPD sleep apnea and a combination of drugs that she takes which include MS Contin, Percocet, Flexeril, Klonopin, and she is also taking a sleeping medication. She remains on anticoagulation with Eliquis.The most recent blood work shows a white cell count of 25, hemoglobin of 8.4 and a platelet count of 228, BUN is at 60 with a creatinine of 1.9 and a sodium level is at 137 with a potassium level of 3.5. I noticed that the patient was in acute kidney injury and the creatinine continues to gradually improve as currently down to 1.9. On today's evaluation of 02/09/2023, the patient has essentially the same as compared to yesterday. Remains on oxygen at 2 L/m nasal cannula. No diarrhea. The patient has no nausea or vomiting or abdominal pain. The patient is post pancreatitis. The white cell count remains elevated. The patient remains on IV Zosyn. ID is on the case regarding ongoing leukocytosis. No signs of any respiratory distress. The patient's creatinine remains elevated at 2.0. This is essentially stable compared to yesterday. Sodium level is at 143 with a potassium level of 3.7, CRP level is at 4.3, LFTs show an AST of 27, ALT of 133 and alkaline phosphatase of 68. She is currently on 2 L of O2 nasal cannula with a pulse ox of 93%. She continues to have issues with chronic pain. Quite debilitated. She is in need for physical therapy and rehabilitation. On today's evaluation of 02/10/2023, the patient is awake and alert on room air oxygen. No significant respiratory distress. Not utilizing BiPAP overnight. At same time, the patient is having some diarrhea. Stool for C. diff has been checked that was negative. IV Zosyn was discontinued and the patient was started on oral vancomycin. The patient's echoes down to 20.9 with a hemoglobin of 9.2. No other new complaints otherwise for now. Medications remain unchanged. No abdominal pain. No nausea or emesis. She is having frequent liquid bowel movements. On today's evaluation of 02/05/2023, the patient to have liquidy diarrhea and the patient is at 4 episodes of diarrhea. The patient is currently on oral vancomycin. She is off the Zosyn. She was started on Questran which she declined and the patient was offered Imodium. The patient has no other new complaints. No respiratory difficulties. She is having episodes of tachycardia and she was found to have episodes of A. fib. Cardiology is on the case. She continues to be on metoprolol and amiodarone. She also remains on anticoagulation with Eliquis. Otherwise, no other respiratory difficulties. White cell count remains elevated at 21 with a hemoglobin of 8.1, creatinine continues to improve is currently down to 1.8 with a BUN of 33. Sodium is at 143 with a potassium level of 3.1. LFTs are stable. 02/12/2023, the patient is not having any active diarrhea. She was given Imodium and her diarrhea has subsided. She continues to have leukocytosis. Based on that, she is going to have a CAT scan of the abdomen per IDs recommenda tion. No fever or chills. No respiratory difficulties. She is awake and alert and communicating. The white cell count is still elevated at 26 with a hemoglobin 8.3. BUN is at 27 with a creatinine of 1.5 and a sodium level is at 143. Noted the patient's creatinine has been gradually improving. She is on room air oxygen with a pulse ox of 92%. She is still having episodes of atrial fibrillation and she is mentally on Eliquis. She is also on Lasix 40 mg by mouth twice a day. She is on metoprolol for rate control 100 mg by mouth twice a day examination with amiodarone 200 mg by mouth daily. She is completing a prednisone burst taper. Currently she is at 30 mg part of her burst taper. Objective - Vital Signs Vital signs: Vital Signs Temp 99 F 02/12/23 13:23 Pulse 120 H 02/12/23 13:23 Resp 32 H 02/12/23 13:23 BP 139/90 02/12/23 13:23 Pulse Ox 98 02/12/23 13:23 FiO2 45 01/31/23 08:00 Intake & Output 02/11/23 02/12/23 02/12/23 18:59 06:59 18:59 Output Total 4 4 Balance -4 -4 Output: Stool 4 4 Other: Voiding Method Bedside Commode Bedside Commode # Voids 3 1 # Bowel Movements 1 1 - Exam GENERAL EXAM: Alert, 67-year-old female, resting comfortably in bed, on 3 L nasal cannula, in no apparent distress. HEAD: Normocephalic. EYES: Normal reaction of pupils, equal size. NOSE: Clear with pink turbinates. THROAT: No erythema or exudates. NECK: No masses, no JVD. CHEST: No chest wall deformity. LUNGS: Equal air entry with bilateral end expiratory wheeze, few scattered rhonchi. CVS: S1 and S2 normal with no audible murmur, regular rhythm. ABDOMEN: No hepatosplenomegaly, normal bowel sounds, no guarding or rigidity. SPINE: No scoliosis or deformity SKIN: No rashes CENTRAL NERVOUS SYSTEM: No focal deficits, tone is normal in all 4 extremities. EXTREMITIES: There is no peripheral edema. No clubbing, no cyanosis. Peripheral pulses are intact. - Labs CBC & Chem 7: 02/12/23 05:58 02/12/23 05:58 Labs: Abnormal Lab Results - Last 24 Hours (Table) 02/11/23 02/11/23 02/12/23 Range/Units 17:19 20:16 05:58 WBC 26.36 H (4.50-10.00) X 10*3/uL RBC 3.91 L (4.10-5.20) X 10*6/uL Hgb 8.3 L (12.0-15.0) d/dL Hct 30.2 L (37.2-46.3) % MCV 77.2 L (80.0-97.0) FL MCH 21.2 L (27.0-32.0) pg MCHC 27.5 L (32.0-37.0) d/dL RDW 26.2 H (11.5-14.5) % Neutrophils # 23.61 H (1.80-7.70) X 10*3/uL Monocytes # 1.31 H (0.20-1.00) X 10*3/uL Eosinophils # 0.03 L (0.04-0.35) X 10*3/uL Potassium (3.5-5.5) mmol/L BUN (9.0-27.0) mg/dL Est GFR (CKD-EPI) (>=60) Glucose (70-110) mg/dL POC Glucose (mg/dL) 199 H 165 H (70-110) mg/dL ALT (8-44) U/L C-Reactive Protein (0.00-0.80) mg/dL Total Protein (6.2-8.2) d/dL Albumin (3.8-4.9) d/dL Albumin/Globulin Ratio (1.60-3.17) Ratio 02/12/23 02/12/23 02/12/23 Range/Units 05:58 07:28 12:18 WBC (4.50-10.00) X 10*3/uL RBC (4.10-5.20) X 10*6/uL Hgb (12.0-15.0) d/dL Hct (37.2-46.3) % MCV (80.0-97.0) FL MCH (27.0-32.0) pg MCHC (32.0-37.0) d/dL RDW (11.5-14.5) % Neutrophils # (1.80-7.70) X 10*3/uL Monocytes # (0.20-1.00) X 10*3/uL Eosinophils # (0.04-0.35) X 10*3/uL Potassium 3.3 L (3.5-5.5) mmol/L BUN 27.4 H (9.0-27.0) mg/dL Est GFR (CKD-EPI) 38 L (>=60) Glucose 115 H (70-110) mg/dL POC Glucose (mg/dL) 129 H 145 H (70-110) mg/dL ALT 73 H (8-44) U/L C-Reactive Protein 3.60 H (0.00-0.80) mg/dL Total Protein 5.9 L (6.2-8.2) d/dL Albumin 3.5 L (3.8-4.9) d/dL Albumin/Globulin Ratio 1.46 L (1.60-3.17) Ratio Assessment and Plan Plan: Altered mental status secondary to hypercapnic respiratory failure secondary to possible extra Klonopin use as well as an acute exacerbation of diastolic congestive heart failure, this improved and the patient's mentation is back to normal. Hypercapnic respiratory failure was multifactorial including COPD/MYLENE//medication, recovered and the patient's mental status is back to normal Acute hypoxemic and hypercapnic respiratory failure secondary to above improved and she is currently on room air oxygen Severe pulmonary hypertension with evidence of right-sided heart failure, please refer to the echocardiogram. This could be related to chronic hypoxemia. The patient x-ray shows improved and the patient is currently on room air oxygen maintaining a pulse ox above 90% Metabolic encephalopathy secondary to above, elevated ammonia level, recovered Leukocytosis, the white cell count remains elevated and is being monitored Chronic Anemia Acute kidney injury, current creatinine is improving is down to 1.8 Hyperkalemia Acute transaminitis trending down Acute pancreatitis, lipase improved and at 267. Computed tomography scan of the abdomen and pelvis revealed acute interstitial edematous pancreatitis. No organizing fluid collection at this time. Troponin leak Urine drug screen is positive for opiates, oxycodone and tricyclic antidepressants History of fibromyalgia History of anxiety/depression/panic disorder Hyperlipidemia Hypertension Memory impairment Chronic and ongoing tobacco dependence Chronic atrial fibrillation anticoagulant with Eliquis Diarrhea, stool for C. diff has been negative Plan: Continues to have leukocytosis. CAT scan of the abdomen to be completed today Offered Imodium for diarrhea, diarrhea has subsided Continue oral vancomycin Continue Diflucan White cell count is still elevated, exact etiology is not clear The patient currently on room air. Recommend utilizing oxygen overnight to prevent any oxygen desaturations. Continue diuretics monitor renal function, the patient is receiving Lasix 40 mg twice a day by mouth Incentive spirometer Anticoagulants with Eliquis Patient is on amiodarone 200 mg by mouth daily and metoprolol 100 mg by mouth twice a day for rate control bronchodilators in the form of DuoNeb updrafts and Symbicort as maintenance Outpatient sleep study at the later stage Avoid any form of excessive intake of narcotics and benzodiazepines. The chest x-ray was reviewed from today. It shows cardiomegaly. No evidence of any pneumonia at this point Zosyn can be discontinued, and the white cell count is still elevated. Will be related to reactive leukocytosis post pancreatitis. Doubt any intra-abdominal abscesses. Monitor diarrhea, currently inactive in his stool for C. diff has been negative We'll continue to follow
[2023-02-12 17:19] LABS: Glucose,Whole Blood 168 mg/dL (70-110)
--- NOTE | 2023-02-12 19:25 | P.PN ---
Subjective This is a pleasant 67 years old female with past medical history of CVA/TIA, Fibromyalgia, Hyperlipidemia, Hypertension, Memory Impairment, Osteoarthritis ,chronic neck and back pain, ddd, ARTHRITIS, USES CANE NEEDED FOR FIBROMYALGIA, s/p cervical fusion,, Anxiety, Depression, Panic Disorder, Current every day smoker Patient presents because of generalized weakness and drowsiness and inability to get up. Patient also was confused. Took extra dose of Klonopin that does not belong to her Results the patient she was looking tired, she was on BiPAP machine which limits her ability to provide information however she follow commands appropriately. She can't tell she is in the hospital the year and the name of the president. She says she's been having some difficulty breathing for around 2 days, no report of coughing. When I asked her she denies chest pain or abdominal pain. Her abdomen looks soft. No vomiting or diarrhea. No weakness or numbness. patient is afebrile, mildly tachycardic and hypoxic and she was saturating 81-91 on 4 L oxygen via nasal cannula patient currently on BiPAP with improved saturation patient has significant leukocytosis of 22.5, hemoglobin 8.6. Platelet count 681. INR 1.6. PH 7.11, pCO2 elevated 85 nothing by mouth to allow 56. Sodium 132, potassium 6, creatinine 3.6, previously was within the reference range. Bilirubin is in within the reference range at 1.1 but AST elevated 3376 and ALT 2982 area Troponin is elevated 0.073. ProBNP is high 11 700 urine analysis is negative. Urine drug screen is positive for opiates, oxycodone and tricyclic antidepressant while serum alcohol less than 10. Chest x-ray: Cardiomegaly with possible pulmonary congestion CT of the brain: No acute process. Atrophic changes EKG: Atrial fibrillation with a rate of 83 with right axis deviation and right bundle branch block and QTC 474 patient was started on Solu-Medrol, IV Lasix 01/30/2023 Patient still confused, she still on BiPAP setting of 15/5 with FiO2 of 45% She still have evidence of acidosis with pH of 7.2, pCO2 worse little today more than 70 compared to 60 yesterday. Her oxygen saturation is acceptable, she is afebrile and the rest of vitals stable although she still tachycardic at 111 Her abdomen looks mildly distended but soft area. There is decreased air entry on both sides no wheezing. No leg swelling. Pupils are equal and reactive to light. Her leukocytosis is improved to to 15,000, hemoglobin is stable at 8.2, INR 1.6. Creatinine is stable at 4.4 which is elevated. Liver enzymes elevated, bilirubin is within the reference range. When he is for the patient was placed on lactulose. Production calcitonin is elevated at 0.77. Creatinine Is 471. Echocardiogram: Showed severe right ventricular dilatation with moderate pulmonary hypertension CAT scan of the abdomen and pelvis without contrast showing ileus and mild pancreatitis. Surgical consult is requested. Prognosis is guarded I talked to the Mr. Dunn over the phone and updated the case with him, he says that the patient was sick for the last 2-3 days before hospitalization that she was sleeping a lot. I asked him what her klonopin and he said he takes it for anxiety note for seizure. because of her Change in mentation we going to taper down her klonopin Down to 0.5 daily. 01/31/2023 Patient remains in the ICU in critical condition, she is confused and she is on a Precedex, she could not provide information although she opens eyes continuously and moans. She does not answer questions and she does not follow commands. She still on BiPAP. Her abdomen looks soft still distended. Does not look tender on examination which is limited by her mentation changes. The leg swelling. Weaver catheter in place. NG tube was taken out. Under Repeat chest x-ray from today showing improvement since admission she is on IV Lasix. Yesterday she had about 1.5 L out. Patient remains nothing by mouth because of her pancreatitis and mentation changes. Patient has elevated amylase lipase and CAT scan showing pancreatitis. Of note, patient given because of her CHF actually she is on IV Lasix. Creatinine remains elevated 4.4 but stable, potassium 5.5 which is stable. Liver enzymes actually trending down with AST 805, ALT 2347. Most likely her transaminitis is secondary to her pancreatitis. Also patient cannot tolerate all of a sudden she is not taking Eliquis therefore we might use alternative however him hemoglobin dropped from 8.2 down to 7.3 therefore going to do anemia workup and monitor hemoglobin closely before restarting anticoagulation Elliott is controlled while she is presented 5 mg/h (patient cannot take oral beta teja as well) over her blood pressure is slightly lower. Still systolic more than 100. She remains on Zosyn, doxycycline, some internal 60 mg, IV Lasix 40 mg 3 times a day, IV Protonix 40 mg. Ammonia actually coming down today and is normal at 23. Klonopin is on hold 02/01/2023 pt today is back to basic mentation baseline, she is fully awake and oriented She does not look in distress, his breathing is also improved and she is currently on nasal cannula. She is hemodynamically stable except for tachycardia with heart rate around 112. Beta teja has been increased to 50 mg daily. Her WBCs 14,000, hemoglobin stable at 7.6 and her dose of Eliquis decreased to renal dose of 2.5. 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 Her enzymes and lipase are trending down, looks like her pancreatitis is also improving, no abdominal pain, no vomiting. Diet is going to be a transplant surgery team. Remains on Zosyn, so Medrol 40 mg and Lasix 60 mg every 8 hours Resume the care of the patient on 02/12/2023 Patient is awake alert and hemodynamically stable. She is saturating 98% on room air. She denies chest pain or abdominal pain Abdomen is less distended. Chest mildly tachycardic and tachypneic with a breathing rate around 18-20. She is getting burst of A. fib but most of the time is controlled However her leukocytosis is worsening from 21.3 up to 26. It went down to 15,000 upon admission earlier but now is worse. CT of the abdomen and pelvis without contrast showing: Masslike heterogeneity throughout the pancreatic head of undetermined significance that requires a contrast enhanced study for further evaluation. No bowel obstruction. No hydronephrosis Patient remains with the oral vancomycin and Diflucan. Prednisone down to 30 mg daily. She is on a Protonix and Eliquis 2.5 mg. We'll monitor her diarrhea Objective - Vital Signs Vital signs: Vital Signs Temp 99 F 02/12/23 13:23 Pulse 120 H 02/12/23 13:23 Resp 32 H 02/12/23 13:23 BP 139/90 02/12/23 13:23 Pulse Ox 98 02/12/23 13:23 FiO2 45 01/31/23 08:00 Intake & Output 02/11/23 02/12/23 02/12/23 18:59 06:59 18:59 Output Total 4 4 Balance -4 -4 Output: Stool 4 4 Other: Voiding Method Bedside Commode Bedside Commode # Voids 3 1 # Bowel Movements 1 1 - Exam -GENERAL: The patient is alert and awake, tired, she follows commands, not in any acute distress. Well developed, well nourished. HEENT: Pupils are round and equally reacting to light. EOMI. No scleral icterus. No conjunctival pallor. Normocephalic, atraumatic. No pharyngeal erythema. No thyromegaly. CARDIOVASCULAR: S1 and S2 present. No murmurs, rubs, or gallops. PULMONARY: Decreased air entry in both sides, no wheezing , no crackles. ABDOMEN: Soft, nontender, distended, normoactive bowel sounds. No palpable organomegaly. MUSCULOSKELETAL: No joint swelling or deformity. EXTREMITIES: No cyanosis, clubbing, or pedal edema. NEUROLOGICAL: Gross neurological examination did not reveal any focal deficits. SKIN: No rashes. no petechiae. - Labs CBC & Chem 7: 02/12/23 05:58 02/12/23 05:58 Labs: Abnormal Lab Results - Last 24 Hours (Table) 02/11/23 02/11/23 02/12/23 Range/Units 17:19 20:16 05:58 WBC 26.36 H (4.50-10.00) X 10*3/uL RBC 3.91 L (4.10-5.20) X 10*6/uL Hgb 8.3 L (12.0-15.0) d/dL Hct 30.2 L (37.2-46.3) % MCV 77.2 L (80.0-97.0) FL MCH 21.2 L (27.0-32.0) pg MCHC 27.5 L (32.0-37.0) d/dL RDW 26.2 H (11.5-14.5) % Neutrophils # 23.61 H (1.80-7.70) X 10*3/uL Monocytes # 1.31 H (0.20-1.00) X 10*3/uL Eosinophils # 0.03 L (0.04-0.35) X 10*3/uL Potassium (3.5-5.5) mmol/L BUN (9.0-27.0) mg/dL Est GFR (CKD-EPI) (>=60) Glucose (70-110) mg/dL POC Glucose (mg/dL) 199 H 165 H (70-110) mg/dL ALT (8-44) U/L C-Reactive Protein (0.00-0.80) mg/dL Total Protein (6.2-8.2) d/dL Albumin (3.8-4.9) d/dL Albumin/Globulin Ratio (1.60-3.17) Ratio 02/12/23 02/12/23 02/12/23 Range/Units 05:58 07:28 12:18 WBC (4.50-10.00) X 10*3/uL RBC (4.10-5.20) X 10*6/uL Hgb (12.0-15.0) d/dL Hct (37.2-46.3) % MCV (80.0-97.0) FL MCH (27.0-32.0) pg MCHC (32.0-37.0) d/dL RDW (11.5-14.5) % Neutrophils # (1.80-7.70) X 10*3/uL Monocytes # (0.20-1.00) X 10*3/uL Eosinophils # (0.04-0.35) X 10*3/uL Potassium 3.3 L (3.5-5.5) mmol/L BUN 27.4 H (9.0-27.0) mg/dL Est GFR (CKD-EPI) 38 L (>=60) Glucose 115 H (70-110) mg/dL POC Glucose (mg/dL) 129 H 145 H (70-110) mg/dL ALT 73 H (8-44) U/L C-Reactive Protein 3.60 H (0.00-0.80) mg/dL Total Protein 5.9 L (6.2-8.2) d/dL Albumin 3.5 L (3.8-4.9) d/dL Albumin/Globulin Ratio 1.46 L (1.60-3.17) Ratio Assessment and Plan Assessment: Masslike heterogeneity of the pancreatic head Acute COPD exacerbation Acute hypoxemic hypercapnic respiratory failure, improved Acute respiratory acidosis combined with metabolic acidosis, improved Metabolic/toxic encephalopathy, improving Acute pancreatitis. Improved Acute renal failure with hyperkalemia, present on admission . Improved cute congestive heart failure with echo shows severely dilated right ventricle and right atrium. Improved transamnitis Atrial fibrillation Anemia Possible colitis with ileus Moderate pulmonary hypertension Chronic atrial fibrillation Hypochromic, microcytic anemia History of CVA/TIA Hypertension Hyperlipidemia History of memory impairment History of osteo-arthritis Chronic neck and back pain status post cervical fusion surgery. Anxiety depression and panic disorder, not in active tissue Plan: Continue with oral Lasix Continue with prednisone Continue with antibiotics oral vancomycin and Diflucan Resume home dose of Eliquis 2.5 mg continue with Protonix. Continue with a breathing treatment of bronchodilator Cardiology, pulmonary and nephrology consult on the case Gen. surgery consult also the case Labs and medication were reviewed.. Continue same treatment. Continue with symptomatic treatment. Resume home medication. Monitor labs and vitals. DVT and GI prophylaxis. Further recommendations as per clinical course of the patient DVT prophylaxis: Eliquis GI Prophylaxis: Pepcid PT/OT: Pending Prognosis is guarded
[2023-02-12] MEDS ORDERED: Potassium Replacement Protocol 1 EACH MISC MISCELLANE PRN (19:42)
[2023-02-12 20:03] LABS: Glucose,Whole Blood 168 mg/dL (70-110)
[2023-02-12] MEDS: POTASSIUM CHLORIDE ER 20 MEQ TAB.ER PO SCH (22:21)
[2023-02-13 00:03] LABS: Glucose,Whole Blood 187 mg/dL (70-110)
[2023-02-13] MEDS: POTASSIUM CHLORIDE ER 20 MEQ TAB.ER PO SCH (00:07)
[2023-02-13] MEDS ORDERED: METOPROLOL TARTRATE 50 MG TAB PO STA (00:09)
[2023-02-13] MEDS: METOCLOPRAMIDE 5 MG/ML 2 ML VIAL IVP SCH ×4 (00:23→17:07)
[2023-02-13] MEDS: ACETAMINOPHEN TAB 325 MG TAB PO PRN ×3 (05:12→22:30)
[2023-02-13 06:26] LABS: Glucose,Whole Blood 131 mg/dL (70-110)
[2023-02-13] MEDS: SYMBICORT 160-4.5 MCG INHALER INHALATION SCH ×2 (07:21→20:06)
[2023-02-13] MEDS: IPRATROPIUM-ALBUTEROL 3 ML NEB INHALATION SCH ×4 (07:21→20:06)
[2023-02-13 07:23] LABS: Glucose,Whole Blood 171 mg/dL (70-110)
[2023-02-13] MEDS: VANCOMYCIN 125 MG CAPSULE PO SCH (08:18)
[2023-02-13] MEDS: INSULIN ASPART (NovoLOG) 100 UNIT/ML VIAL SQ SCH ×4 (08:18→22:06)
[2023-02-13] MEDS: predniSONE 10 MG TAB PO SCH (08:19)
[2023-02-13] MEDS: METOPROLOL SUCCINATE (ER) 25 MG TAB.ER.24H PO SCH ×2 (08:19→22:15)
[2023-02-13] MEDS: SPIRONOLACTONE 25 MG TAB PO SCH (08:19)
[2023-02-13] MEDS: LORATADINE 10 MG TAB PO SCH (08:19)
[2023-02-13] MEDS: FLUCONAZOLE 100 MG TAB PO SCH (08:19)
[2023-02-13] MEDS: METOPROLOL SUCCINATE (ER) 100 MG TAB.ER.24H PO SCH ×2 (08:19→22:12)
[2023-02-13] MEDS: FUROSEMIDE 40 MG TAB PO SCH ×2 (08:19→15:05)
[2023-02-13] MEDS: PANTOPRAZOLE 40 MG/10 ML VIAL IVP SCH ×2 (08:19→22:18)
[2023-02-13] MEDS: APIXABAN 2.5 MG TABLET PO SCH ×2 (08:19→22:18)
[2023-02-13] MEDS: AMIODARONE 200 MG TAB PO SCH (08:19)
[2023-02-13] MEDS: DAPAGLIFLOZIN PROPANEDIOL 10 MG TABLET PO SCH (08:19)
[2023-02-13] MEDS: DULoxetine HCL 60 MG CAPSULE.DR PO SCH (08:19)
[2023-02-13] MEDS: CHOLESTYRAMINE (WITH SUGAR) 4 GM PACKET PO SCH ×2 (08:20→17:07)
[2023-02-13 10:08] LABS: HCT 31.6 % (37.2-46.3); HGB 8.4 d/dL (12.0-15.0); MCH 21.4 pg (27.0-32.0); MCHC 26.6 d/dL (32.0-37.0); MCV 80.4 FL (80.0-97.0); Mean Platelet Volume 12.1 FL (9.5-12.2); NRBC Per 100 WBC 0 X 10*3/uL (0.00-0.01); Platelet Count 155 X 10*3/uL (140-440); RBC 3.93 X 10*6/uL (4.10-5.20); RDW 26.5 % (11.5-14.5); WBC 23.22 X 10*3/uL (4.50-10.00)
[2023-02-13 11:03] LABS: BUN/Creat Ratio 19.73 Ratio (12.00-20.00); Blood Urea Nitrogen 29.6 mg/dL (9.0-27.0); Calcium 9.9 mg/dL (8.7-10.3); Carbon Dioxide 25.3 mmol/L (21.6-31.8); Chloride 106 mmol/L (96-109); Glucose 122 mg/dL (70-110); Potassium 4.5 mmol/L (3.5-5.5); Sodium 143 mmol/L (135-145)
[2023-02-13 11:58] LABS: Glucose,Whole Blood 117 mg/dL (70-110)
--- NOTE | 2023-02-13 12:54 | P.PN ---
Subjective Progress Note Date: 02/13/23 This is a 67-year-old female with a known history of hypertension, hyperlipidemia, fibromyalgia, CVA/TIA, memory impairment, anxiety/depression/panic disorder, chronic and ongoing tobacco dependence. She was brought into the emergency room by her to start afternoon after finding her to be quite drowsy. He had trouble getting her up. She had trouble bearing her own weight. She was confused. Apparently she had taken extra Klonopin. Computed tomography scan of the brain revealed chronic small vessel ischemic changes without acute intracranial process. Chest x-ray revealed chronic changes but no acute pulmonary disease. Echocardiogram revealed preserved left ventricular systolic function. Severe right ventricular enlargement with moderate pulmonary hypertension. Abdominal ultrasound revealed no acute process. White count 18.2. Hemoglobin 8.3. Platelets 605. Sodium 129. Potassium 6.4. Bicarb 25. BUN 82. Creatinine 4.25. AST 4961. ALT 4711. Ammonia level XL. Creatinine kinase 471. BNP 11,700. Urine drug screen positive for opiates, oxycodone, tricyclic antidepressants. Initial arterial blood gases on 36% FiO2 revealed a P O2 of 38, pCO2 of 100 and a pH of 7.05. She was placed on BiPAP 15/5 and 32% FiO2 and follow-up blood gases revealed a pO2 of 56, pCO2 of 85 and a pH of 7.11. She is seen today in consultation in the emergency department. She is currently resting on a stretcher. Arousable. Not able to give much information. Follow-up arterial blood gases on 36% FiO2 revealed a pO2 of 69, pCO2 of 63 and a pH of 7.23. Patient was reevaluated today on 01/30/2023, patient remains on BiPAP, continues to be confused, she is arousable, but does not seem to be quite alert and oriented. In spite of being on BiPAP for the last 24 hours, repeat ABG on 40% FiO2 with IPAP of 16 and EPAP of 6 showed a pO2 of 56 E. CO2 74 and pH of 7.22 which is clearly a worsening ABG compared to the ABG noted yesterday. With worsening hypoxia worsening hypercapnia and worsening pH. Hence after evaluating the patient I recommended immediate transfer to the ICU and will continue BiPAP, we will check a follow-up chest x-ray, if the patient does not improve much, and we will continue diuretics, may have to consider intubating the patient and placement on mechanical ventilation. Chest x-ray this morning continues to show cardiomegaly and interstitial edema, doubt underlying pneumonia. WBC count today is 15.7 hemoglobin is 8.2 sodium is 130 potassium 5.8 BUN is 105 creatinine 4.41. Liver enzymes are worsening with worsening AST of over 1500, ALT was close to 5000s, CPK is 471 Procalcitonin is 0.77, CT of the abdomen and pelvis showed mild pancreatitis with colonic dilatation suggestive of colonic ileus. Patient was seen by general surgery on [facility] for her abnormal CT of the abdomen and pelvis and recommended mostly conservative measures Reevaluated today on 01/31/2023, patient was transferred to ICU yesterday, remains in the ICU, remains on BiPAP 15/45%. Overnight the patient was extremely agitated and restless, and kept pulling her BiPAP, hence she was placed on Precedex which is now at 1 mcg/kg/h. For her atrial fibrillation with RVR remains on Cardizem at 5 mg per hour. Patient remains on Zosyn she also remains on Lasix at 40 mg IV push every 8 hours. Chest x-ray is showing definite improvement. Follow-up ABG today on the BiPAP showed significant improvement compared to yesterday with improving oxygenation pO2 105 improving pCO2 down to 60 from 74 and improving pH from 7.22 to 7.34 liver enzymes are elevated but improving and malaise is elevated at 348 and lipase is 1070 chest x-ray is showing improvement in her interstitial edema but not fully resolved. The patient is seen today 02/01/2023 in follow-up in the intensive care unit. She is awake and alert in no acute distress. Sitting up in bed. She is curr ently off the BiPAP. She is maintaining good O2 saturations in the 90s on 4 L/m per nasal cannula. She is receiving normal saline at 20 ML's per hour. White count 14.7. Hemoglobin 7.6. Platelets 452. Sodium 135. Potassium 4.7. Bicarb 30. BUN 123. Creatinine 4.20. Glucose 107. Amylase 372. Lipase 593. She is currently in a -2.1 L balance. She remains on Lasix 60 mg every 8 hours. Continue bronchodilators and steroids. Anticoagulated with Eliquis. Antibiotics in the form of Zosyn. The patient is seen today 02/02/2023 in follow-up in the intensive care unit. She is sitting up in bed. Awake and alert in no acute distress. She is maintaining good O2 saturations in the 90s on 3 L/m per nasal cannula. She has normal saline at 20 ML's per hour. White count 12.9. Hemoglobin 8.1. Platelets 421. Sodium 135. Potassium 4.1. Bicarb 33. BUN 123. Creatinine 4.05. Glucose 142. Lipase 345. She is continued on bronchodilators and steroids. Anticoagulated with Eliquis. Antibiotics in the form of Zosyn. She remains on IV diuretics. Currently in a -1.7 L balance. The patient is seen today 02/03/2023 in follow-up in the intensive care unit. She has a regular medical floor overflow patient. She is currently sitting up in bed. Awake and alert in no acute distress. She is maintaining O2 saturation in the 90s on 3 L/m per nasal cannula. She remains quite weak. She is continued on DuoNeb inhalations, Pulmicort and performs inhalations, IV Solu- Medrol. She remains on antibiotics in the form of Zosyn. Anticoagulated with Eliquis. Remains on IV Lasix. Currently in a -1.3 L balance. Count 14.9. Hemoglobin 8.5. Platelets 413. Sodium 135. Potassium 4.4. Bicarb 36. BUN 118. Creatinine 3.74. Glucose 129. Lipase 267. The patient is seen today 02/04/2023 in follow-up in the intensive care unit. She is a regular medical floor overflow. She is resting comfortably in bed. Awake and alert in no acute distress. Maintaining good O2 saturations in the 90s on 2 L/m per nasal cannula. She does desaturate to 84% on room air. She has normal saline at 20 ML's per hour. She is continued on Lasix 60 mg IV every 12 hours. She remains on Symbicort and DuoNeb inhalations, prednisone taper. Anticoagulated with Eliquis. Remains on antibiotics in the form of Zosyn. She is currently in a -1.8 L balance. White count 19.0. Hemoglobin 8.8. Platelets 410. Sodium 136. Potassium 3.3. Bicarb 36. BUN 109. Creatinine 3.51. Glucose 143. Patient is seen today 02/05/2023 in follow-up in the intensive care unit. She is a regular medical floor overflow still. She is resting comfortably in bed. Awake and alert in no acute distress. Maintaining O2 saturations in the 90s on 2 L/m per nasal cannula. She remains on DuoNeb inhalations, Symbicort, prednisone taper. Anticoagulated with Eliquis. Continues on IV diuretics. Currently in a -1.5 L balance. White count 23.0. Hemoglobin 9.0. Platelets 374. Sodium 136. Potassium 3.7. Bicarb 37. BUN 104. Creatinine 2.73. Glucose 114. The patient is seen today 02/06/2023 in follow-up on the regular medical floor. She is sitting up in bed. Awake and alert in no acute distress. She is maintaining good O2 saturations in the 90s on 3 L/m per nasal cannula. No IV fluids. She is continued on Symbicort, DuoNeb inhalations, prednisone taper. She is on IV diuretics. Anticoagulated with Eliquis. Currently in a -1.6 L balance. White count 23.4. Hemoglobin 9.6. Platelets 320. Sodium 136. Potassium 3.4. Bicarb 39. BUN 91. Creatinine 2.48. Glucose 109. C-reactive protein 4.3. The patient is seen today 02/07/2023 in follow-up on the regular medical floor. She is resting comfortably in bed. Awake and alert in no acute distress. Maintaining O2 saturations in the 90s on 3 L/m per nasal cannula. She remains on DuoNeb inhalations, Symbicort, prednisone taper. Anticoagulated with Eliquis. Remains on oral diuretics. Continued on Diflucan. Computed tomography scan of the abdomen and pelvis revealed acute interstitial edematous pancreatitis. No organizing fluid collection at this time. The cultures revealed no growth. Blood sugar 109. Today's evaluation of 02/08/2023, I'm seeing the patient for a follow-up. I reviewed the records and the patient has improved considerably. I reviewed a series of blood gases has been done on the patient and the patient has shown steady improvement in her carbon dioxide level and a drop down to 60. Most recent pH was at 7.34. She is currently on 3 L of oxygen by nasal cannula. She is not using any form of noninvasive positive pressure ventilation. Respiratory failure is multifactorial including COPD sleep apnea and a combination of drugs that she takes which include MS Contin, Percocet, Flexeril, Klonopin, and she is also taking a sleeping medication. She remains on anticoagulation with Eliquis.The most recent blood work shows a white cell count of 25, hemoglobin of 8.4 and a platelet count of 228, BUN is at 60 with a creatinine of 1.9 and a sodium level is at 137 with a potassium level of 3.5. I noticed that the patient was in acute kidney injury and the creatinine continues to gradually improve as currently down to 1.9. On today's evaluation of 02/09/2023, the patient has essentially the same as compared to yesterday. Remains on oxygen at 2 L/m nasal cannula. No diarrhea. The patient has no nausea or vomiting or abdominal pain. The patient is post pancreatitis. The white cell count remains elevated. The patient remains on IV Zosyn. ID is on the case regarding ongoing leukocytosis. No signs of any respiratory distress. The patient's creatinine remains elevated at 2.0. This is essentially stable compared to yesterday. Sodium level is at 143 with a potassium level of 3.7, CRP level is at 4.3, LFTs show an AST of 27, ALT of 133 and alkaline phosphatase of 68. She is currently on 2 L of O2 nasal cannula with a pulse ox of 93%. She continues to have issues with chronic pain. Quite debilitated. She is in need for physical therapy and rehabilitation. On today's evaluation of 02/10/2023, the patient is awake and alert on room air oxygen. No significant respiratory distress. Not utilizing BiPAP overnight. At same time, the patient is having some diarrhea. Stool for C. diff has been checked that was negative. IV Zosyn was discontinued and the patient was started on oral vancomycin. The patient's echoes down to 20.9 with a hemoglobin of 9.2. No other new complaints otherwise for now. Medications remain unchanged. No abdominal pain. No nausea or emesis. She is having frequent liquid bowel movements. On today's evaluation of 02/05/2023, the patient to have liquidy diarrhea and the patient is at 4 episodes of diarrhea. The patient is currently on oral vancomycin. She is off the Zosyn. She was started on Questran which she declined and the patient was offered Imodium. The patient has no other new complaints. No respiratory difficulties. She is having episodes of tachycardia and she was found to have episodes of A. fib. Cardiology is on the case. She continues to be on metoprolol and amiodarone. She also remains on anticoagulation with Eliquis. Otherwise, no other respiratory difficulties. White cell count remains elevated at 21 with a hemoglobin of 8.1, creatinine continues to improve is currently down to 1.8 with a BUN of 33. Sodium is at 143 with a potassium level of 3.1. LFTs are stable. 02/12/2023, the patient is not having any active diarrhea. She was given Imodium and her diarrhea has subsided. She continues to have leukocytosis. Based on that, she is going to have a CAT scan of the abdomen per IDs recommenda tion. No fever or chills. No respiratory difficulties. She is awake and alert and communicating. The white cell count is still elevated at 26 with a hemoglobin 8.3. BUN is at 27 with a creatinine of 1.5 and a sodium level is at 143. Noted the patient's creatinine has been gradually improving. She is on room air oxygen with a pulse ox of 92%. She is still having episodes of atrial fibrillation and she is mentally on Eliquis. She is also on Lasix 40 mg by mouth twice a day. She is on metoprolol for rate control 100 mg by mouth twice a day examination with amiodarone 200 mg by mouth daily. She is completing a prednisone burst taper. Currently she is at 30 mg part of her burst taper. 02/13/2023, the patient is stable. The white cell count remains elevated although improved compared to yesterday's currently down to 23. Hemoglobin was at 8.4 and a platelet count is at 155. BUN is at 29 with a creatinine of 1.5 and the renal function has been improving is stable compared to yesterday. CAT scan of the abdomen and pelvis was done and there is a masslike heterogeneous density throughout the pancreatic head and the significance of the subnormality is not known. Examination limited due to lack of contrast. This could be related to pancreatitis as the patient had some stranding throughout the pancreas compatible with an acute pancreatitis. No bowel obstruction. No other intra-abdominal abnormalities. The patient denies having any abdominal pain. She is currently on 2 L of oxygen by nasal cannula with a pulse ox of 99%. Her breathing is nonlabored. She remains in A. fib. She is anticoagulation. Steroids will be tapered. Objective - Vital Signs Vital signs: Vital Signs Temp 98.2 F 02/13/23 07:25 Pulse 116 H 02/13/23 07:25 Resp 24 02/13/23 07:25 BP 133/85 02/13/23 07:25 Pulse Ox 100 02/13/23 07:25 FiO2 45 01/31/23 08:00 Intake & Output 02/12/23 02/13/23 02/13/23 18:59 06:59 18:59 Output Total 4 4 Balance -4 -4 Output: Stool 4 4 Other: Voiding Method Bedside Commode Bedside Commode # Voids 1 2 # Bowel Movements 1 1 - Exam GENERAL EXAM: Alert, 67-year-old female, resting comfortably in bed, on 3 L nasal cannula, in no apparent distress. HEAD: Normocephalic. EYES: Normal reaction of pupils, equal size. NOSE: Clear with pink turbinates. THROAT: No erythema or exudates. NECK: No masses, no JVD. CHEST: No chest wall deformity. LUNGS: Equal air entry with bilateral end expiratory wheeze, few scattered rhonchi. CVS: S1 and S2 normal with no audible murmur, regular rhythm. ABDOMEN: No hepatosplenomegaly, normal bowel sounds, no guarding or rigidity. SPINE: No scoliosis or deformity SKIN: No rashes CENTRAL NERVOUS SYSTEM: No focal deficits, tone is normal in all 4 extremities. EXTREMITIES: There is no peripheral edema. No clubbing, no cyanosis. Pe ripheral pulses are intact. - Labs CBC & Chem 7: 02/13/23 06:32 02/13/23 06:32 Labs: Abnormal Lab Results - Last 24 Hours (Table) 02/12/23 02/12/23 02/12/23 Range/Units 12:18 17:18 20:02 WBC (4.50-10.00) X 10*3/uL RBC (4.10-5.20) X 10*6/uL Hgb (12.0-15.0) d/dL Hct (37.2-46.3) % MCH (27.0-32.0) pg MCHC (32.0-37.0) d/dL RDW (11.5-14.5) % POC Glucose (mg/dL) 145 H 168 H 168 H (70-110) mg/dL 02/13/23 02/13/23 02/13/23 Range/Units 00:01 06:25 06:32 WBC 23.22 H (4.50-10.00) X 10*3/uL RBC 3.93 L (4.10-5.20) X 10*6/uL Hgb 8.4 L (12.0-15.0) d/dL Hct 31.6 L (37.2-46.3) % MCH 21.4 L (27.0-32.0) pg MCHC 26.6 L (32.0-37.0) d/dL RDW 26.5 H (11.5-14.5) % POC Glucose (mg/dL) 187 H 131 H (70-110) mg/dL 02/13/23 Range/Units 07:22 WBC (4.50-10.00) X 10*3/uL RBC (4.10-5.20) X 10*6/uL Hgb (12.0-15.0) d/dL Hct (37.2-46.3) % MCH (27.0-32.0) pg MCHC (32.0-37.0) d/dL RDW (11.5-14.5) % POC Glucose (mg/dL) 171 H (70-110) mg/dL Assessment and Plan Plan: Altered mental status secondary to hypercapnic respiratory failure secondary to possible extra Klonopin use as well as an acute exacerbation of diastolic congestive heart failure, this improved and the patient's mentation is back to normal. Hypercapnic respiratory failure was multifactorial including COPD/MYLENE//medication, recovered and the patient's mental status is back to normal Acute hypoxemic and hypercapnic respiratory failure secondary to above improved and she is currently on room air oxygen Severe pulmonary hypertension with evidence of right-sided heart failure, please refer to the echocardiogram. This could be related to chronic hypoxemia. The patient x-ray shows improved and the patient is currently on room air oxygen maintaining a pulse ox above 90% Metabolic encephalopathy secondary to above, elevated ammonia level, recovered Leukocytosis, the white cell count remains elevated and is being monitored, improved slightly compared to yesterday started on the 23 Chronic Anemia Acute kidney injury, current creatinine is improving is down to 1.5 Hyperkalemia Acute transaminitis trending down Acute pancreatitis, lipase improved and at 267. Computed tomography scan of the abdomen and pelvis revealed acute interstitial edematous pancreatitis. No organizing fluid collection at this time. Troponin leak Urine drug screen is positive for opiates, oxycodone and tricyclic antidepressants History of fibromyalgia History of anxiety/depression/panic disorder Hyperlipidemia Hypertension Memory impairment Chronic and ongoing tobacco dependence Chronic atrial fibrillation anticoagulant with Eliquis Diarrhea, stool for C. diff has been negative Plan: Continues to have leukocytosis. CAT scan of the abdomen was noted and this is compatible with pancreatitis Offered Imodium for diarrhea, diarrhea has subsided Continue oral vancomycin Continue Diflucan White cell count is still elevated, although improving prednisone down to 10 mg by mouth daily The patient currently on 2 L of oxygen by nasal cannula. Recommend utilizing oxygen overnight to prevent any oxygen desaturations. Continue diuretics monitor renal function, the patient is receiving Lasix 40 mg twice a day by mouth Incentive spirometer Anticoagulants with Eliquis Patient is on amiodarone 200 mg by mouth daily and metoprolol 100 mg by mouth twice a day for rate control bronchodilators in the form of DuoNeb updrafts and Symbicort as maintenance Outpatient sleep study at the later stage Avoid any form of excessive intake of narcotics and benzodiazepines. We'll continue to follow
--- NOTE | 2023-02-13 14:02 | P.PN ---
Subjective Progress Note Date: 02/13/23 Principal diagnosis: Leukocytosis Patient is a 67-year-old female presenting to the hospital on 01/28/2023 for evaluation of drowsiness confusion patient has been diagnosed with acute hypercapnic respiratory failure with COPD exacerbation, and also have mildly elevated lipase concerning for mild pancreatitis, patient was noticed to have worsening of the white count prompting this infectious disease consultation. On today's evaluation that is 02/13/2023, the patient remains to be afebrile, the patient is breathing comfortably on 2 L nasal cannula oxygen and denies any shortness of breath, the patient denies any chest pain or cough, patient denies Abdominal pain and no nausea/vomiting and did have resolution of her diarrhea Patient did have a white count is down to 20.22, creatinine is 1.5, CRP is 3.90 blood cultures has been negative. CT of abdominal pelvis concerning for pericarditis but no evidence of any complications is an abscess and there was no evidence of any colitis as the bowels were reported normal Objective - Vital Signs Vital signs: Vital Signs Temp 98.2 F 02/13/23 07:25 Pulse 116 H 02/13/23 07:25 Resp 24 02/13/23 07:25 BP 133/85 02/13/23 07:25 Pulse Ox 100 02/13/23 07:25 FiO2 45 01/31/23 08:00 Intake & Output 02/12/23 02/13/23 02/13/23 18:59 06:59 18:59 Output Total 4 4 Balance -4 -4 Output: Stool 4 4 Other: Voiding Method Bedside Commode Bedside Commode # Voids 1 2 # Bowel Movements 1 1 - Exam GENERAL DESCRIPTION: An elderly female lying in bed in no distress RESPIRATORY SYSTEM: Unlabored breathing , decreased breath sounds at bases HEART: S1 S2 regular rate and rhythm , ABDOMEN: Soft , no tenderness EXTREMITIES: No edema feet - Labs CBC & Chem 7: 02/13/23 06:32 02/13/23 06:32 Labs: Abnormal Lab Results - Last 24 Hours (Table) 02/12/23 02/12/23 02/12/23 Range/Units 12:18 17:18 20:02 WBC (4.50-10.00) X 10*3/uL RBC (4.10-5.20) X 10*6/uL Hgb (12.0-15.0) d/dL Hct (37.2-46.3) % MCH (27.0-32.0) pg MCHC (32.0-37.0) d/dL RDW (11.5-14.5) % BUN (9.0-27.0) mg/dL Est GFR (CKD-EPI) (>=60) Glucose (70-110) mg/dL POC Glucose (mg/dL) 145 H 168 H 168 H (70-110) mg/dL 02/13/23 02/13/23 02/13/23 Range/Units 00:01 06:25 06:32 WBC (4.50-10.00) X 10*3/uL RBC (4.10-5.20) X 10*6/uL Hgb (12.0-15.0) d/dL Hct (37.2-46.3) % MCH (27.0-32.0) pg MCHC (32.0-37.0) d/dL RDW (11.5-14.5) % BUN 29.6 H (9.0-27.0) mg/dL Est GFR (CKD-EPI) 38 L (>=60) Glucose 122 H (70-110) mg/dL POC Glucose (mg/dL) 187 H 131 H (70-110) mg/dL 02/13/23 02/13/23 Range/Units 06:32 07:22 WBC 23.22 H (4.50-10.00) X 10*3/uL RBC 3.93 L (4.10-5.20) X 10*6/uL Hgb 8.4 L (12.0-15.0) d/dL Hct 31.6 L (37.2-46.3) % MCH 21.4 L (27.0-32.0) pg MCHC 26.6 L (32.0-37.0) d/dL RDW 26.5 H (11.5-14.5) % BUN (9.0-27.0) mg/dL Est GFR (CKD-EPI) (>=60) Glucose (70-110) mg/dL POC Glucose (mg/dL) 171 H (70-110) mg/dL Assessment and Plan (1) Leukocytosis Current Visit: Yes Status: Acute Code(s): D72.829 - ELEVATED WHITE BLOOD CELL COUNT, UNSPECIFIED SNOMED Code(s): 542038784 (2) Diarrhea Current Visit: Yes Status: Acute Code(s): R19.7 - DIARRHEA, UNSPECIFIED SNOMED Code(s): 98594220 Plan: 1patient with elevated white count and this patient has been in the hospital for almost 8 days with initial presentation for weakness was diagnosed with COPD exacerbation also mild pancreatitis on the basis of CT and elevated amylase and lipase patient did have admission improvement in her white count though over the last 3 days her white count has been trending up however the patient has been afebrile denies any bone pain no tenderness was noticed chest x-ray negative for pneumonia no urinary symptoms no problem with the peripheral IV sites 2patient has developed diarrhea and was exposed to antibiotics C. diff was negative patient to continue with a Questran for symptomatic treatment 3-patient did have a persistent elevated white count is more likely just continue steroid use and the patient did have a pancreatitis however there is no evidence of any complications such as pseudocyst or abscess and no evidence of any colitis we will discontinue oral vancomycin and monitor the patient closely off antibiotic therapy Dictation was produced using [employer] dictation software. please excuse any grammatical, word or spelling errors. Time with Patient: Less than 30
[2023-02-13] MEDS ORDERED: METOPROLOL SUCCINATE (ER) 50 MG TAB.ER.24H PO ONE (14:15)
--- NOTE | 2023-02-13 14:27 | P.PN ---
Subjective Progress Note Date: 02/13/23 Follow-up for acute kidney injury. No nausea vomiting diarrhea. Urine output not documented. Objective - Vital Signs Vital signs: Vital Signs Temp 98.5 F 02/13/23 13:15 Pulse 124 H 02/13/23 13:15 Resp 28 H 02/13/23 13:15 BP 146/95 02/13/23 13:15 Pulse Ox 100 02/13/23 13:15 FiO2 45 01/31/23 08:00 Intake & Output 02/12/23 02/13/23 02/13/23 18:59 06:59 18:59 Output Total 4 4 Balance -4 -4 Output: Stool 4 4 Other: Voiding Method Bedside Commode Bedside Commode # Voids 1 2 # Bowel Movements 1 1 - Exam No acute distress S1-S2 heard Lungs clear No edema - Labs CBC & Chem 7: 02/13/23 06:32 02/13/23 06:32 Labs: Abnormal Lab Results - Last 24 Hours (Table) 02/12/23 02/12/23 02/13/23 Range/Units 17:18 20:02 00:01 WBC (4.50-10.00) X 10*3/uL RBC (4.10-5.20) X 10*6/uL Hgb (12.0-15.0) d/dL Hct (37.2-46.3) % MCH (27.0-32.0) pg MCHC (32.0-37.0) d/dL RDW (11.5-14.5) % BUN (9.0-27.0) mg/dL Est GFR (CKD-EPI) (>=60) Glucose (70-110) mg/dL POC Glucose (mg/dL) 168 H 168 H 187 H (70-110) mg/dL 02/13/23 02/13/23 02/13/23 Range/Units 06:25 06:32 06:32 WBC 23.22 H (4.50-10.00) X 10*3/uL RBC 3.93 L (4.10-5.20) X 10*6/uL Hgb 8.4 L (12.0-15.0) d/dL Hct 31.6 L (37.2-46.3) % MCH 21.4 L (27.0-32.0) pg MCHC 26.6 L (32.0-37.0) d/dL RDW 26.5 H (11.5-14.5) % BUN 29.6 H (9.0-27.0) mg/dL Est GFR (CKD-EPI) 38 L (>=60) Glucose 122 H (70-110) mg/dL POC Glucose (mg/dL) 131 H (70-110) mg/dL 02/13/23 02/13/23 Range/Units 07:22 11:57 WBC (4.50-10.00) X 10*3/uL RBC (4.10-5.20) X 10*6/uL Hgb (12.0-15.0) d/dL Hct (37.2-46.3) % MCH (27.0-32.0) pg MCHC (32.0-37.0) d/dL RDW (11.5-14.5) % BUN (9.0-27.0) mg/dL Est GFR (CKD-EPI) (>=60) Glucose (70-110) mg/dL POC Glucose (mg/dL) 171 H 117 H (70-110) mg/dL Assessment and Plan Assessment: #1 acute kidney injury secondary to hemodynamic ATN/CRS. -Baseline creatinine 1.0 MG per DL in July 2021. -Admission creatinine of 4.5 MG per DL. -CT abdomen no hydronephrosis. -Urinalysis trace blood and glucose. #2 volume overload improved with diuresis #3 acute on chronic diastolic CHF with pulmonary hypertension #4 anemia #5 acute hypoxic and hypercarbic respiratory failure Plan: #1 renal function improving #2 continue with current dose of diuretics. #3 daily renal labs #4 avoid nephrotoxic agents
--- NOTE | 2023-02-13 16:20 | P.PN ---
Subjective This is a pleasant 67 years old female with past medical history of CVA/TIA, Fibromyalgia, Hyperlipidemia, Hypertension, Memory Impairment, Osteoarthritis ,chronic neck and back pain, ddd, ARTHRITIS, USES CANE NEEDED FOR FIBROMYALGIA, s/p cervical fusion,, Anxiety, Depression, Panic Disorder, Current every day smoker Patient presents because of generalized weakness and drowsiness and inability to get up. Patient also was confused. Took extra dose of Klonopin that does not belong to her Results the patient she was looking tired, she was on BiPAP machine which limits her ability to provide information however she follow commands appropriately. She can't tell she is in the hospital the year and the name of the president. She says she's been having some difficulty breathing for around 2 days, no report of coughing. When I asked her she denies chest pain or abdominal pain. Her abdomen looks soft. No vomiting or diarrhea. No weakness or numbness. patient is afebrile, mildly tachycardic and hypoxic and she was saturating 81-91 on 4 L oxygen via nasal cannula patient currently on BiPAP with improved saturation patient has significant leukocytosis of 22.5, hemoglobin 8.6. Platelet count 681. INR 1.6. PH 7.11, pCO2 elevated 85 nothing by mouth to allow 56. Sodium 132, potassium 6, creatinine 3.6, previously was within the reference range. Bilirubin is in within the reference range at 1.1 but AST elevated 3376 and ALT 2982 area Troponin is elevated 0.073. ProBNP is high 11 700 urine analysis is negative. Urine drug screen is positive for opiates, oxycodone and tricyclic antidepressant while serum alcohol less than 10. Chest x-ray: Cardiomegaly with possible pulmonary congestion CT of the brain: No acute process. Atrophic changes EKG: Atrial fibrillation with a rate of 83 with right axis deviation and right bundle branch block and QTC 474 patient was started on Solu-Medrol, IV Lasix 01/30/2023 Patient still confused, she still on BiPAP setting of 15/5 with FiO2 of 45% She still have evidence of acidosis with pH of 7.2, pCO2 worse little today more than 70 compared to 60 yesterday. Her oxygen saturation is acceptable, she is afebrile and the rest of vitals stable although she still tachycardic at 111 Her abdomen looks mildly distended but soft area. There is decreased air entry on both sides no wheezing. No leg swelling. Pupils are equal and reactive to light. Her leukocytosis is improved to to 15,000, hemoglobin is stable at 8.2, INR 1.6. Creatinine is stable at 4.4 which is elevated. Liver enzymes elevated, bilirubin is within the reference range. When he is for the patient was placed on lactulose. Production calcitonin is elevated at 0.77. Creatinine Is 471. Echocardiogram: Showed severe right ventricular dilatation with moderate pulmonary hypertension CAT scan of the abdomen and pelvis without contrast showing ileus and mild pancreatitis. Surgical consult is requested. Prognosis is guarded I talked to the Mr. Dunn over the phone and updated the case with him, he says that the patient was sick for the last 2-3 days before hospitalization that she was sleeping a lot. I asked him what her klonopin and he said he takes it for anxiety note for seizure. because of her Change in mentation we going to taper down her klonopin Down to 0.5 daily. 01/31/2023 Patient remains in the ICU in critical condition, she is confused and she is on a Precedex, she could not provide information although she opens eyes continuously and moans. She does not answer questions and she does not follow commands. She still on BiPAP. Her abdomen looks soft still distended. Does not look tender on examination which is limited by her mentation changes. The leg swelling. Weaver catheter in place. NG tube was taken out. Under Repeat chest x-ray from today showing improvement since admission she is on IV Lasix. Yesterday she had about 1.5 L out. Patient remains nothing by mouth because of her pancreatitis and mentation changes. Patient has elevated amylase lipase and CAT scan showing pancreatitis. Of note, patient given because of her CHF actually she is on IV Lasix. Creatinine remains elevated 4.4 but stable, potassium 5.5 which is stable. Liver enzymes actually trending down with AST 805, ALT 2347. Most likely her transaminitis is secondary to her pancreatitis. Also patient cannot tolerate all of a sudden she is not taking Eliquis therefore we might use alternative however him hemoglobin dropped from 8.2 down to 7.3 therefore going to do anemia workup and monitor hemoglobin closely before restarting anticoagulation Elliott is controlled while she is presented 5 mg/h (patient cannot take oral beta teja as well) over her blood pressure is slightly lower. Still systolic more than 100. She remains on Zosyn, doxycycline, some internal 60 mg, IV Lasix 40 mg 3 times a day, IV Protonix 40 mg. Ammonia actually coming down today and is normal at 23. Klonopin is on hold 02/01/2023 pt today is back to basic mentation baseline, she is fully awake and oriented She does not look in distress, his breathing is also improved and she is currently on nasal cannula. She is hemodynamically stable except for tachycardia with heart rate around 112. Beta teja has been increased to 50 mg daily. Her WBCs 14,000, hemoglobin stable at 7.6 and her dose of Eliquis decreased to renal dose of 2.5. 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 Her enzymes and lipase are trending down, looks like her pancreatitis is also improving, no abdominal pain, no vomiting. Diet is going to be a transplant surgery team. Remains on Zosyn, so Medrol 40 mg and Lasix 60 mg every 8 hours Resume the care of the patient on 02/12/2023 Patient is awake alert and hemodynamically stable. She is saturating 98% on room air. She denies chest pain or abdominal pain Abdomen is less distended. Chest mildly tachycardic and tachypneic with a breathing rate around 18-20. She is getting burst of A. fib but most of the time is controlled However her leukocytosis is worsening from 21.3 up to 26. It went down to 15,000 upon admission earlier but now is worse. CT of the abdomen and pelvis without contrast showing: Masslike heterogeneity throughout the pancreatic head of undetermined significance that requires a contrast enhanced study for further evaluation. No bowel obstruction. No hydronephrosis Patient remains with the oral vancomycin and Diflucan. Prednisone down to 30 mg daily. She is on a Protonix and Eliquis 2.5 mg. We'll monitor her diarrhea 02/13/2023 Patients with moderate respiratory distress with tachypnea and tachycardia. Patient currently placed on metoprolol 75 mg twice daily. Also she is getting breathing treatment. Her prednisone dose was lowered to [address] of the abdomen show no colitis and infectious disease team recommended to discontinue oral vancomycin and keep monitoring her ANTIBIOTIC. I'll told the patient and the at bedside about her pancreatic mass that is to follow up as an outpatient. Risk of malignancy are explained and they verbalized understanding and acceptance. She remains on Protonix and 2.5 mg of Eliquis Objective - Vital Signs Vital signs: Vital Signs Temp 98.5 F 02/13/23 13:15 Pulse 124 H 02/13/23 13:15 Resp 28 H 02/13/23 13:15 BP 146/95 02/13/23 13:15 Pulse Ox 100 02/13/23 13:15 FiO2 45 01/31/23 08:00 Intake & Output 02/12/23 02/13/23 02/13/23 18:59 06:59 18:59 Output Total 4 4 Balance -4 -4 Output: Stool 4 4 Other: Voiding Method Bedside Commode Bedside Commode # Voids 1 2 # Bowel Movements 1 1 - Exam -GENERAL: The patient is alert and awake, tired, she follows commands, not in any acute distress. Well developed, well nourished. HEENT: Pupils are round and equally reacting to light. EOMI. No scleral icterus. No conjunctival pallor. Normocephalic, atraumatic. No pharyngeal erythema. No thyromegaly. CARDIOVASCULAR: S1 and S2 present. No murmurs, rubs, or gallops. PULMONARY: Decreased air entry in both sides, no wheezing , no crackles. ABDOMEN: Soft, nontender, distended, normoactive bowel sounds. No palpable organomegaly. MUSCULOSKELETAL: No joint swelling or deformity. EXTREMITIES: No cyanosis, clubbing, or pedal edema. NEUROLOGICAL: Gross neurological examination did not reveal any focal deficits. SKIN: No rashes. no petechiae. - Labs CBC & Chem 7: 02/13/23 06:32 02/13/23 06:32 Labs: Abnormal Lab Results - Last 24 Hours (Table) 02/12/23 02/12/23 02/13/23 Range/Units 17:18 20:02 00:01 WBC (4.50-10.00) X 10*3/uL RBC (4.10-5.20) X 10*6/uL Hgb (12.0-15.0) d/dL Hct (37.2-46.3) % MCH (27.0-32.0) pg MCHC (32.0-37.0) d/dL RDW (11.5-14.5) % BUN (9.0-27.0) mg/dL Est GFR (CKD-EPI) (>=60) Glucose (70-110) mg/dL POC Glucose (mg/dL) 168 H 168 H 187 H (70-110) mg/dL 02/13/23 02/13/23 02/13/23 Range/Units 06:25 06:32 06:32 WBC 23.22 H (4.50-10.00) X 10*3/uL RBC 3.93 L (4.10-5.20) X 10*6/uL Hgb 8.4 L (12.0-15.0) d/dL Hct 31.6 L (37.2-46.3) % MCH 21.4 L (27.0-32.0) pg MCHC 26.6 L (32.0-37.0) d/dL RDW 26.5 H (11.5-14.5) % BUN 29.6 H (9.0-27.0) mg/dL Est GFR (CKD-EPI) 38 L (>=60) Glucose 122 H (70-110) mg/dL POC Glucose (mg/dL) 131 H (70-110) mg/dL 02/13/23 02/13/23 Range/Units 07:22 11:57 WBC (4.50-10.00) X 10*3/uL RBC (4.10-5.20) X 10*6/uL Hgb (12.0-15.0) d/dL Hct (37.2-46.3) % MCH (27.0-32.0) pg MCHC (32.0-37.0) d/dL RDW (11.5-14.5) % BUN (9.0-27.0) mg/dL Est GFR (CKD-EPI) (>=60) Glucose (70-110) mg/dL POC Glucose (mg/dL) 171 H 117 H (70-110) mg/dL Assessment and Plan Assessment: Masslike heterogeneity of the pancreatic head Acute COPD exacerbation Acute hypoxemic hypercapnic respiratory failure, improved Acute respiratory acidosis combined with metabolic acidosis, improved Metabolic/toxic encephalopathy, improving Acute pancreatitis. Improved Acute renal failure with hyperkalemia, present on admission . Improved cute congestive heart failure with echo shows severely dilated right ventricle and right atrium. Improved transamnitis Atrial fibrillation Anemia Possible colitis with ileus Moderate pulmonary hypertension Chronic atrial fibrillation Hypochromic, microcytic anemia History of CVA/TIA Hypertension Hyperlipidemia History of memory impairment History of osteo-arthritis Chronic neck and back pain status post cervical fusion surgery. Anxiety depression and panic disorder, not in active tissue Plan: Continue with oral Lasix Continue with prednisone Continue with antibiotics Diflucan. oral vancomycin was discontinued monitor WBC Patient and informed about possible pancreatic mass and they verbalized understanding and acceptance to follow up closely as an outpatient Resume home dose of Eliquis 2.5 mg continue with Protonix. Continue with a breathing treatment of bronchodilator Cardiology, pulmonary and nephrology consult on the case Gen. surgery consult also the case Labs and medication were reviewed.. Continue same treatment. Continue with symptomatic treatment. Resume home medication. Monitor labs and vitals. DVT and GI prophylaxis. Further recommendations as per clinical course of the patient DVT prophylaxis: Eliquis GI Prophylaxis: Pepcid PT/OT: Pending Prognosis is guarded
--- NOTE | 2023-02-13 16:59 | P.PN ---
Subjective Progress Note Date: 02/13/23 HISTORY OF PRESENT ILLNESS: 67-year-old with past medical history of CVA/TIA, fibromyalgia, hyperlipidemia, hypertension, memory impairment, osteoarthritis, chronic neck and back pain, atrial fibrillation, congestive heart failure, COPD. Patient smokes tobacco almost everyday. Patient present to the hospital with generalized weakness, drowsiness, and inability to get up. On admission she was significantly confused and her speech was altered. Patient took extra dose of Klonopin before coming to the hospital. Cardiology was consulted to evaluate and manage atrial fibrillation and congestive heart failure.Echocardiogram from 2019 showed an EF of 55%, asymmetrical septal hypertrophy 02/07/2023 Patient is stable from cardiac vessel standpoint. She is having good diuresis with IV Lasix 60 mg twice a day. Her lower swelling has improved significantly. She is tolerating oral diet. Rate controlled atrial fibrillation on telemetry 02/08/2023 Patient examined this morning. She is sitting in the chair. She denies chest pain or pressure. Denies SOB. Remains on oral lasix. BMP from this morning is currently pending. Patient is currently not on telemetry. Documented heart rates 100-120. Blood pressure stable. 02/09/2023 Patient examined this morning. She is sitting up in the chair. Patient denies chest pain or pressure. She denies shortness of breath. Blood pressure stable. Telemetry reveals atrial fibrillation. Heart rate is in the low 100s. 02/10/2023 Patient examined this morning at the bedside. Patient denies chest pain or pressure. She currently denies shortness of breath. Vital signs are stable. Telemetry reveals atrial fibrillation with a heart rate in the low 100s. She continues to report diarrhea. C. diff is negative. She is receiving antibiotics per infectious disease. WBC yesterday 26.37. 02/11/2023 Patient examined this morning at the bedside. Patient denies chest pain or pressure. She denies shortness of breath. Blood pressure has improved with a systolic in the 140s. Telemetry reveals atrial fibrillation with a heart rate in the low 100s. 02/12/2023 Patient examined this afternoon at the bedside. Patient denies chest pain or pressure. She denies shortness of breath. Blood pressure is stable. Telemetry reveals atrial fibrillation with a heart rate around 115. Patient said white count continues to be elevated. Infectious disease ordered CT abdomen and pelvis. Patient is refusing to have this completed and is very adamant about being discharged home today. 02/13/2023 She reports feeling better. Her shortness of breath is the same, on NC 02. Creat stable at 1.5. Heart rates not well controlled 110-120's on tele. PHYSICAL EXAM: VITAL SIGNS: Reviewed. GENERAL: Well-developed in no acute distress. NECK: Supple. No JVD or thyromegaly LUNGS: Respirations even and unlabored. Lungs diminished bilaterally. HEART: Irregular rate and rhythm, tachy, S1 and S2 heard. EXTREMITIES: Normal range of motion. No clubbing or cyanosis. Peripheral pulses intact. Bilateral lower extremity edema trace. ASSESSMENT: Acute hypoxic and hypercapnic respiratory failure Acute COPD exacerbation Leukocytosis Acute heart failure with preserved ejection fraction Permanent atrial fibrillation with RVR Pancreatitis with pseudocyst Acute kidney injury Former nicotine dependence PLAN: Antral, we will increase metoprolol to 175 mg twice a day. Discussed that her shortness of breath might be related to increase fluid versus pulmonary hypertension versus her atrial fibrillation. Continue telemetry monitoring. Will consider right-sided heart catheterization on an outpatient basis secondary to significant right ventricular dilatation with concerns of possible increased pulmonary pressures. Continue antibiotics per infectious disease. Further recommendations pending patient's course. Nurse practitioner note has been reviewed by physician. Signing provider agrees with the documented findings, assessment, and plan of care. Objective - Vital Signs Vital signs: Vital Signs Temp 98.5 F 02/13/23 13:15 Pulse 124 H 02/13/23 13:15 Resp 28 H 02/13/23 13:15 BP 146/95 02/13/23 13:15 Pulse Ox 100 02/13/23 13:15 FiO2 45 01/31/23 08:00 Intake & Output 02/12/23 02/13/23 02/13/23 18:59 06:59 18:59 Output Total 4 4 Balance -4 -4 Output: Stool 4 4 Other: Voiding Method Bedside Commode Bedside Commode # Voids 1 2 # Bowel Movements 1 1 - Labs CBC & Chem 7: 02/13/23 06:32 02/13/23 06:32 Labs: Abnormal Lab Results - Last 24 Hours (Table) 02/12/23 02/12/23 02/13/23 Range/Units 17:18 20:02 00:01 WBC (4.50-10.00) X 10*3/uL RBC (4.10-5.20) X 10*6/uL Hgb (12.0-15.0) d/dL Hct (37.2-46.3) % MCH (27.0-32.0) pg MCHC (32.0-37.0) d/dL RDW (11.5-14.5) % BUN (9.0-27.0) mg/dL Est GFR (CKD-EPI) (>=60) Glucose (70-110) mg/dL POC Glucose (mg/dL) 168 H 168 H 187 H (70-110) mg/dL 02/13/23 02/13/23 02/13/23 Range/Units 06:25 06:32 06:32 WBC 23.22 H (4.50-10.00) X 10*3/uL RBC 3.93 L (4.10-5.20) X 10*6/uL Hgb 8.4 L (12.0-15.0) d/dL Hct 31.6 L (37.2-46.3) % MCH 21.4 L (27.0-32.0) pg MCHC 26.6 L (32.0-37.0) d/dL RDW 26.5 H (11.5-14.5) % BUN 29.6 H (9.0-27.0) mg/dL Est GFR (CKD-EPI) 38 L (>=60) Glucose 122 H (70-110) mg/dL POC Glucose (mg/dL) 131 H (70-110) mg/dL 02/13/23 02/13/23 Range/Units 07:22 11:57 WBC (4.50-10.00) X 10*3/uL RBC (4.10-5.20) X 10*6/uL Hgb (12.0-15.0) d/dL Hct (37.2-46.3) % MCH (27.0-32.0) pg MCHC (32.0-37.0) d/dL RDW (11.5-14.5) % BUN (9.0-27.0) mg/dL Est GFR (CKD-EPI) (>=60) Glucose (70-110) mg/dL POC Glucose (mg/dL) 171 H 117 H (70-110) mg/dL
[2023-02-13 17:04] LABS: Glucose,Whole Blood 174 mg/dL (70-110)
[2023-02-13 20:19] LABS: Glucose,Whole Blood 152 mg/dL (70-110)
[2023-02-14] MEDS: METOCLOPRAMIDE 5 MG/ML 2 ML VIAL IVP SCH ×4 (01:17→17:55)
[2023-02-14] MEDS: IPRATROPIUM-ALBUTEROL 3 ML NEB INHALATION SCH ×4 (07:38→20:16)
[2023-02-14] MEDS: SYMBICORT 160-4.5 MCG INHALER INHALATION SCH ×2 (07:38→20:16)
[2023-02-14 08:11] LABS: Glucose,Whole Blood 113 mg/dL (70-110)
[2023-02-14] MEDS: METOPROLOL SUCCINATE (ER) 100 MG TAB.ER.24H PO SCH ×2 (08:29→21:38)
[2023-02-14] MEDS: SPIRONOLACTONE 25 MG TAB PO SCH (08:29)
[2023-02-14] MEDS: LORATADINE 10 MG TAB PO SCH (08:29)
[2023-02-14] MEDS: AMIODARONE 200 MG TAB PO SCH (08:29)
[2023-02-14] MEDS: PANTOPRAZOLE 40 MG/10 ML VIAL IVP SCH ×2 (08:29→21:37)
[2023-02-14] MEDS: DULoxetine HCL 60 MG CAPSULE.DR PO SCH (08:31)
[2023-02-14] MEDS: FUROSEMIDE 40 MG TAB PO SCH ×2 (08:31→16:37)
[2023-02-14] MEDS: DAPAGLIFLOZIN PROPANEDIOL 10 MG TABLET PO SCH (08:31)
[2023-02-14] MEDS: APIXABAN 2.5 MG TABLET PO SCH ×2 (08:31→21:37)
[2023-02-14] MEDS: predniSONE 10 MG TAB PO SCH (08:32)
[2023-02-14] MEDS: METOPROLOL SUCCINATE (ER) 25 MG TAB.ER.24H PO SCH ×2 (08:32→21:37)
[2023-02-14] MEDS: ACETAMINOPHEN TAB 325 MG TAB PO PRN ×3 (08:32→20:04)
[2023-02-14] MEDS: CHOLESTYRAMINE (WITH SUGAR) 4 GM PACKET PO SCH ×2 (08:32→17:55)
[2023-02-14 08:38] LABS: Anisocytosis Moderate; Basophils % (A) 0 %; Eosinophils % (A) 0 %; HCT 31.3 % (34.0-46.0); HGB 8.8 gm/dL (11.4-16.0); Hypochromasia Marked; Lymphocytes # (A) 0.9 k/uL (1.0-4.8); Lymphocytes % (A) 5 %; MCH 22.5 pg (25.0-35.0); MCHC 28.1 g/dL (31.0-37.0); MCV 79.9 fL (80.0-100.0); Mean Platelet Volume 8.3; Microcytosis Moderate; Monocytes # (A) 0.4 k/uL (0-1.0); Monocytes % (A) 2 %; Neutrophils # (A) 16.1 k/uL (1.3-7.7); Neutrophils % (A) 92 %; Platelet Count 170 k/uL (150-450); RBC 3.91 m/uL (3.80-5.40); RDW 23.8 % (11.5-15.5); WBC 17.5 k/uL (3.8-10.6)
[2023-02-14] MEDS: INSULIN ASPART (NovoLOG) 100 UNIT/ML VIAL SQ SCH ×4 (08:38→21:36)
[2023-02-14 08:56] LABS: ALT 52 U/L (4-34); AST 21 U/L (14-36); African American GFR (CKD) 41 (>60 ml/min/1.73 sqM); Albumin 3.5 g/dL (3.5-5.0); Albumin/Globulin Ratio 1.3; Alkaline Phosphatase 71 U/L (38-126); Anion Gap 13 mmol/L; Blood Urea Nitrogen 35 mg/dL (7-17); C Reactive Protein 3.7 mg/dL (<1.0); Calcium 9.8 mg/dL (8.4-10.2); Carbon Dioxide 25 mmol/L (22-30); Chloride 104 mmol/L (98-107); Globulin 2.6 g/dL; Glucose 107 mg/dL (74-99); Non-African American GFR(CKD) 36 (>60 ml/min/1.73 sqM); Potassium 4.4 mmol/L (3.5-5.1); Sodium 142 mmol/L (137-145); Total Bilirubin 0.6 mg/dL (0.2-1.3); Total Protein 6.1 g/dL (6.3-8.2)
[2023-02-14 11:42] LABS: Glucose,Whole Blood 172 mg/dL (70-110)
--- NOTE | 2023-02-14 13:06 | P.PN ---
Subjective Progress Note Date: 02/14/23 This is a 67-year-old female with a known history of hypertension, hyperlipidemia, fibromyalgia, CVA/TIA, memory impairment, anxiety/depression/panic disorder, chronic and ongoing tobacco dependence. She was brought into the emergency room by her to start afternoon after finding her to be quite drowsy. He had trouble getting her up. She had trouble bearing her own weight. She was confused. Apparently she had taken extra Klonopin. Computed tomography scan of the brain revealed chronic small vessel ischemic changes without acute intracranial process. Chest x-ray revealed chronic changes but no acute pulmonary disease. Echocardiogram revealed preserved left ventricular systolic function. Severe right ventricular enlargement with moderate pulmonary hypertension. Abdominal ultrasound revealed no acute process. White count 18.2. Hemoglobin 8.3. Platelets 605. Sodium 129. Potassium 6.4. Bicarb 25. BUN 82. Creatinine 4.25. AST 4961. ALT 4711. Ammonia level XL. Creatinine kinase 471. BNP 11,700. Urine drug screen positive for opiates, oxycodone, tricyclic antidepressants. Initial arterial blood gases on 36% FiO2 revealed a P O2 of 38, pCO2 of 100 and a pH of 7.05. She was placed on BiPAP 15/5 and 32% FiO2 and follow-up blood gases revealed a pO2 of 56, pCO2 of 85 and a pH of 7.11. She is seen today in consultation in the emergency department. She is currently resting on a stretcher. Arousable. Not able to give much information. Follow-up arterial blood gases on 36% FiO2 revealed a pO2 of 69, pCO2 of 63 and a pH of 7.23. Patient was reevaluated today on 01/30/2023, patient remains on BiPAP, continues to be confused, she is arousable, but does not seem to be quite alert and oriented. In spite of being on BiPAP for the last 24 hours, repeat ABG on 40% FiO2 with IPAP of 16 and EPAP of 6 showed a pO2 of 56 E. CO2 74 and pH of 7.22 which is clearly a worsening ABG compared to the ABG noted yesterday. With worsening hypoxia worsening hypercapnia and worsening pH. Hence after evaluating the patient I recommended immediate transfer to the ICU and will continue BiPAP, we will check a follow-up chest x-ray, if the patient does not improve much, and we will continue diuretics, may have to consider intubating the patient and placement on mechanical ventilation. Chest x-ray this morning continues to show cardiomegaly and interstitial edema, doubt underlying pneumonia. WBC count today is 15.7 hemoglobin is 8.2 sodium is 130 potassium 5.8 BUN is 105 creatinine 4.41. Liver enzymes are worsening with worsening AST of over 1500, ALT was close to 5000s, CPK is 471 Procalcitonin is 0.77, CT of the abdomen and pelvis showed mild pancreatitis with colonic dilatation suggestive of colonic ileus. Patient was seen by general surgery on [facility] for her abnormal CT of the abdomen and pelvis and recommended mostly conservative measures Reevaluated today on 01/31/2023, patient was transferred to ICU yesterday, remains in the ICU, remains on BiPAP 15/45%. Overnight the patient was extremely agitated and restless, and kept pulling her BiPAP, hence she was placed on Precedex which is now at 1 mcg/kg/h. For her atrial fibrillation with RVR remains on Cardizem at 5 mg per hour. Patient remains on Zosyn she also remains on Lasix at 40 mg IV push every 8 hours. Chest x-ray is showing definite improvement. Follow-up ABG today on the BiPAP showed significant improvement compared to yesterday with improving oxygenation pO2 105 improving pCO2 down to 60 from 74 and improving pH from 7.22 to 7.34 liver enzymes are elevated but improving and malaise is elevated at 348 and lipase is 1070 chest x-ray is showing improvement in her interstitial edema but not fully resolved. The patient is seen today 02/01/2023 in follow-up in the intensive care unit. She is awake and alert in no acute distress. Sitting up in bed. She is curr ently off the BiPAP. She is maintaining good O2 saturations in the 90s on 4 L/m per nasal cannula. She is receiving normal saline at 20 ML's per hour. White count 14.7. Hemoglobin 7.6. Platelets 452. Sodium 135. Potassium 4.7. Bicarb 30. BUN 123. Creatinine 4.20. Glucose 107. Amylase 372. Lipase 593. She is currently in a -2.1 L balance. She remains on Lasix 60 mg every 8 hours. Continue bronchodilators and steroids. Anticoagulated with Eliquis. Antibiotics in the form of Zosyn. The patient is seen today 02/02/2023 in follow-up in the intensive care unit. She is sitting up in bed. Awake and alert in no acute distress. She is maintaining good O2 saturations in the 90s on 3 L/m per nasal cannula. She has normal saline at 20 ML's per hour. White count 12.9. Hemoglobin 8.1. Platelets 421. Sodium 135. Potassium 4.1. Bicarb 33. BUN 123. Creatinine 4.05. Glucose 142. Lipase 345. She is continued on bronchodilators and steroids. Anticoagulated with Eliquis. Antibiotics in the form of Zosyn. She remains on IV diuretics. Currently in a -1.7 L balance. The patient is seen today 02/03/2023 in follow-up in the intensive care unit. She has a regular medical floor overflow patient. She is currently sitting up in bed. Awake and alert in no acute distress. She is maintaining O2 saturation in the 90s on 3 L/m per nasal cannula. She remains quite weak. She is continued on DuoNeb inhalations, Pulmicort and performs inhalations, IV Solu- Medrol. She remains on antibiotics in the form of Zosyn. Anticoagulated with Eliquis. Remains on IV Lasix. Currently in a -1.3 L balance. Count 14.9. Hemoglobin 8.5. Platelets 413. Sodium 135. Potassium 4.4. Bicarb 36. BUN 118. Creatinine 3.74. Glucose 129. Lipase 267. The patient is seen today 02/04/2023 in follow-up in the intensive care unit. She is a regular medical floor overflow. She is resting comfortably in bed. Awake and alert in no acute distress. Maintaining good O2 saturations in the 90s on 2 L/m per nasal cannula. She does desaturate to 84% on room air. She has normal saline at 20 ML's per hour. She is continued on Lasix 60 mg IV every 12 hours. She remains on Symbicort and DuoNeb inhalations, prednisone taper. Anticoagulated with Eliquis. Remains on antibiotics in the form of Zosyn. She is currently in a -1.8 L balance. White count 19.0. Hemoglobin 8.8. Platelets 410. Sodium 136. Potassium 3.3. Bicarb 36. BUN 109. Creatinine 3.51. Glucose 143. Patient is seen today 02/05/2023 in follow-up in the intensive care unit. She is a regular medical floor overflow still. She is resting comfortably in bed. Awake and alert in no acute distress. Maintaining O2 saturations in the 90s on 2 L/m per nasal cannula. She remains on DuoNeb inhalations, Symbicort, prednisone taper. Anticoagulated with Eliquis. Continues on IV diuretics. Currently in a -1.5 L balance. White count 23.0. Hemoglobin 9.0. Platelets 374. Sodium 136. Potassium 3.7. Bicarb 37. BUN 104. Creatinine 2.73. Glucose 114. The patient is seen today 02/06/2023 in follow-up on the regular medical floor. She is sitting up in bed. Awake and alert in no acute distress. She is maintaining good O2 saturations in the 90s on 3 L/m per nasal cannula. No IV fluids. She is continued on Symbicort, DuoNeb inhalations, prednisone taper. She is on IV diuretics. Anticoagulated with Eliquis. Currently in a -1.6 L balance. White count 23.4. Hemoglobin 9.6. Platelets 320. Sodium 136. Potassium 3.4. Bicarb 39. BUN 91. Creatinine 2.48. Glucose 109. C-reactive protein 4.3. The patient is seen today 02/07/2023 in follow-up on the regular medical floor. She is resting comfortably in bed. Awake and alert in no acute distress. Maintaining O2 saturations in the 90s on 3 L/m per nasal cannula. She remains on DuoNeb inhalations, Symbicort, prednisone taper. Anticoagulated with Eliquis. Remains on oral diuretics. Continued on Diflucan. Computed tomography scan of the abdomen and pelvis revealed acute interstitial edematous pancreatitis. No organizing fluid collection at this time. The cultures revealed no growth. Blood sugar 109. Today's evaluation of 02/08/2023, I'm seeing the patient for a follow-up. I reviewed the records and the patient has improved considerably. I reviewed a series of blood gases has been done on the patient and the patient has shown steady improvement in her carbon dioxide level and a drop down to 60. Most recent pH was at 7.34. She is currently on 3 L of oxygen by nasal cannula. She is not using any form of noninvasive positive pressure ventilation. Respiratory failure is multifactorial including COPD sleep apnea and a combination of drugs that she takes which include MS Contin, Percocet, Flexeril, Klonopin, and she is also taking a sleeping medication. She remains on anticoagulation with Eliquis.The most recent blood work shows a white cell count of 25, hemoglobin of 8.4 and a platelet count of 228, BUN is at 60 with a creatinine of 1.9 and a sodium level is at 137 with a potassium level of 3.5. I noticed that the patient was in acute kidney injury and the creatinine continues to gradually improve as currently down to 1.9. On today's evaluation of 02/09/2023, the patient has essentially the same as compared to yesterday. Remains on oxygen at 2 L/m nasal cannula. No diarrhea. The patient has no nausea or vomiting or abdominal pain. The patient is post pancreatitis. The white cell count remains elevated. The patient remains on IV Zosyn. ID is on the case regarding ongoing leukocytosis. No signs of any respiratory distress. The patient's creatinine remains elevated at 2.0. This is essentially stable compared to yesterday. Sodium level is at 143 with a potassium level of 3.7, CRP level is at 4.3, LFTs show an AST of 27, ALT of 133 and alkaline phosphatase of 68. She is currently on 2 L of O2 nasal cannula with a pulse ox of 93%. She continues to have issues with chronic pain. Quite debilitated. She is in need for physical therapy and rehabilitation. On today's evaluation of 02/10/2023, the patient is awake and alert on room air oxygen. No significant respiratory distress. Not utilizing BiPAP overnight. At same time, the patient is having some diarrhea. Stool for C. diff has been checked that was negative. IV Zosyn was discontinued and the patient was started on oral vancomycin. The patient's echoes down to 20.9 with a hemoglobin of 9.2. No other new complaints otherwise for now. Medications remain unchanged. No abdominal pain. No nausea or emesis. She is having frequent liquid bowel movements. On today's evaluation of 02/05/2023, the patient to have liquidy diarrhea and the patient is at 4 episodes of diarrhea. The patient is currently on oral vancomycin. She is off the Zosyn. She was started on Questran which she declined and the patient was offered Imodium. The patient has no other new complaints. No respiratory difficulties. She is having episodes of tachycardia and she was found to have episodes of A. fib. Cardiology is on the case. She continues to be on metoprolol and amiodarone. She also remains on anticoagulation with Eliquis. Otherwise, no other respiratory difficulties. White cell count remains elevated at 21 with a hemoglobin of 8.1, creatinine continues to improve is currently down to 1.8 with a BUN of 33. Sodium is at 143 with a potassium level of 3.1. LFTs are stable. 02/12/2023, the patient is not having any active diarrhea. She was given Imodium and her diarrhea has subsided. She continues to have leukocytosis. Based on that, she is going to have a CAT scan of the abdomen per IDs recommenda tion. No fever or chills. No respiratory difficulties. She is awake and alert and communicating. The white cell count is still elevated at 26 with a hemoglobin 8.3. BUN is at 27 with a creatinine of 1.5 and a sodium level is at 143. Noted the patient's creatinine has been gradually improving. She is on room air oxygen with a pulse ox of 92%. She is still having episodes of atrial fibrillation and she is mentally on Eliquis. She is also on Lasix 40 mg by mouth twice a day. She is on metoprolol for rate control 100 mg by mouth twice a day examination with amiodarone 200 mg by mouth daily. She is completing a prednisone burst taper. Currently she is at 30 mg part of her burst taper. 02/13/2023, the patient is stable. The white cell count remains elevated although improved compared to yesterday's currently down to 23. Hemoglobin was at 8.4 and a platelet count is at 155. BUN is at 29 with a creatinine of 1.5 and the renal function has been improving is stable compared to yesterday. CAT scan of the abdomen and pelvis was done and there is a masslike heterogeneous density throughout the pancreatic head and the significance of the subnormality is not known. Examination limited due to lack of contrast. This could be related to pancreatitis as the patient had some stranding throughout the pancreas compatible with an acute pancreatitis. No bowel obstruction. No other intra-abdominal abnormalities. The patient denies having any abdominal pain. She is currently on 2 L of oxygen by nasal cannula with a pulse ox of 99%. Her breathing is nonlabored. She remains in A. fib. She is anticoagulation. Steroids will be tapered. 02/14/2023, no new complaints. The white cell count continues to improve is currently on 17.5. Creatinine is also improving is down to 1.5 with a BUN of 35 and sodium levels is 142. No fever. No chills. Respiratory status is stable a nd the patient remains on 1 L of oxygen by nasal cannula with a pulse ox 99%. Hemodynamically stable. Continues to be in atrial fibrillation. No nausea and emesis. Abdominal pain. Objective - Vital Signs Vital signs: Vital Signs Temp 98.7 F 02/14/23 11:42 Pulse 116 H 02/14/23 11:42 Resp 18 02/14/23 11:42 BP 146/83 02/14/23 11:42 Pulse Ox 100 02/14/23 11:42 FiO2 45 01/31/23 08:00 Intake & Output 02/13/23 02/14/23 02/14/23 18:59 06:59 18:59 Other: Voiding Method Bedside Commode # Voids 3 2 1 # Bowel Movements 1 - Exam GENERAL EXAM: Alert, 67-year-old female, resting comfortably in bed, on 3 L nasal cannula, in no apparent distress. HEAD: Normocephalic. EYES: Normal reaction of pupils, equal size. NOSE: Clear with pink turbinates. THROAT: No erythema or exudates. NECK: No masses, no JVD. CHEST: No chest wall deformity. LUNGS: Equal air entry with bilateral end expiratory wheeze, few scattered rhonchi. CVS: S1 and S2 normal with no audible murmur, regular rhythm. ABDOMEN: No hepatosplenomegaly, normal bowel sounds, no guarding or rigidity. SPINE: No scoliosis or deformity SKIN: No rashes CENTRAL NERVOUS SYSTEM: No focal deficits, tone is normal in all 4 extremities. EXTREMITIES: There is no peripheral edema. No clubbing, no cyanosis. Peripheral pulses are intact. - Labs CBC & Chem 7: 02/14/23 07:21 02/14/23 07:21 Labs: Abnormal Lab Results - Last 24 Hours (Table) 02/13/23 02/13/23 02/14/23 Range/Units 17:03 20:16 07:21 WBC 17.5 H (3.8-10.6) k/uL Hgb 8.8 L (11.4-16.0) gm/dL Hct 31.3 L (34.0-46.0) % MCV 79.9 L (80.0-100.0) fL MCH 22.5 L (25.0-35.0) pg MCHC 28.1 L (31.0-37.0) g/dL RDW 23.8 H (11.5-15.5) % Neutrophils # 16.1 H (1.3-7.7) k/uL Lymphocytes # 0.9 L (1.0-4.8) k/uL BUN (7-17) mg/dL Creatinine (0.52-1.04) mg/dL Glucose (74-99) mg/dL POC Glucose (mg/dL) 174 H 152 H (70-110) mg/dL ALT (4-34) U/L C-Reactive Protein (<1.0) mg/dL Total Protein (6.3-8.2) g/dL 02/14/23 02/14/23 02/14/23 Range/Units 07:21 08:02 11:41 WBC (3.8-10.6) k/uL Hgb (11.4-16.0) gm/dL Hct (34.0-46.0) % MCV (80.0-100.0) fL MCH (25.0-35.0) pg MCHC (31.0-37.0) g/dL RDW (11.5-15.5) % Neutrophils # (1.3-7.7) k/uL Lymphocytes # (1.0-4.8) k/uL BUN 35 H (7-17) mg/dL Creatinine 1.51 H (0.52-1.04) mg/dL Glucose 107 H (74-99) mg/dL POC Glucose (mg/dL) 113 H 172 H (70-110) mg/dL ALT 52 H (4-34) U/L C-Reactive Protein 3.7 H (<1.0) mg/dL Total Protein 6.1 L (6.3-8.2) g/dL Assessment and Plan Plan: Altered mental status secondary to hypercapnic respiratory failure secondary to possible extra Klonopin use as well as an acute exacerbation of diastolic co ngestive heart failure, this improved and the patient's mentation is back to normal. Hypercapnic respiratory failure was multifactorial including COPD/MYLENE//medication, recovered and the patient's mental status is back to normal Acute hypoxemic and hypercapnic respiratory failure secondary to above improved and she is currently on room air oxygen Severe pulmonary hypertension with evidence of right-sided heart failure, please refer to the echocardiogram. This could be related to chronic hypoxemia. The patient x-ray shows improved and the patient is currently on room air oxygen maintaining a pulse ox above 90% Metabolic encephalopathy secondary to above, elevated ammonia level, recovered Leukocytosis, the white cell count remains elevated and is being monitored, improved and is on a decline in currently down to 17 Chronic Anemia Acute kidney injury, current creatinine is improving is down to 1.5, stable Hyperkalemia Acute transaminitis trending down Acute pancreatitis, lipase improved and at 267. Computed tomography scan of the abdomen and pelvis revealed acute interstitial edematous pancreatitis. No organizing fluid collection at this time. Troponin leak Urine drug screen is positive for opiates, oxycodone and tricyclic antidepressants History of fibromyalgia History of anxiety/depression/panic disorder Hyperlipidemia Hypertension Memory impairment Chronic and ongoing tobacco dependence Chronic atrial fibrillation anticoagulant with Eliquis Diarrhea, stool for C. diff has been negative Plan: Continues to have leukocytosis. CAT scan of the abdomen was noted and this is compatible with pancreatitis, the white cell count is improving Diarrhea subsided White cell count is still elevated, although improving prednisone down to 10 mg by mouth daily The patient currently on 2 L of oxygen by nasal cannula. Recommend utilizing oxygen overnight to prevent any oxygen desaturations. Continue diuretics monitor renal function, the patient is receiving Lasix 40 mg twice a day by mouth Incentive spirometer Anticoagulants with Eliquis Patient is on amiodarone 200 mg by mouth daily and metoprolol 100 mg by mouth twice a day for rate control bronchodilators in the form of DuoNeb updrafts and Symbicort as maintenance Outpatient sleep study at the later stage Avoid any form of excessive intake of narcotics and benzodiazepines. Good for discharge and pulmonary critical care services will sign off
[2023-02-14] MEDS ORDERED: HYDROcodone/APAP 5-325MG 1 EACH TAB PO STA (13:16)
--- NOTE | 2023-02-14 13:21 | P.PN ---
Subjective This is a pleasant 67 years old female with past medical history of CVA/TIA, Fibromyalgia, Hyperlipidemia, Hypertension, Memory Impairment, Osteoarthritis ,chronic neck and back pain, ddd, ARTHRITIS, USES CANE NEEDED FOR FIBROMYALGIA, s/p cervical fusion,, Anxiety, Depression, Panic Disorder, Current every day smoker Patient presents because of generalized weakness and drowsiness and inability to get up. Patient also was confused. Took extra dose of Klonopin that does not belong to her Results the patient she was looking tired, she was on BiPAP machine which limits her ability to provide information however she follow commands appropriately. She can't tell she is in the hospital the year and the name of the president. She says she's been having some difficulty breathing for around 2 days, no report of coughing. When I asked her she denies chest pain or abdominal pain. Her abdomen looks soft. No vomiting or diarrhea. No weakness or numbness. patient is afebrile, mildly tachycardic and hypoxic and she was saturating 81-91 on 4 L oxygen via nasal cannula patient currently on BiPAP with improved saturation patient has significant leukocytosis of 22.5, hemoglobin 8.6. Platelet count 681. INR 1.6. PH 7.11, pCO2 elevated 85 nothing by mouth to allow 56. Sodium 132, potassium 6, creatinine 3.6, previously was within the reference range. Bilirubin is in within the reference range at 1.1 but AST elevated 3376 and ALT 2982 area Troponin is elevated 0.073. ProBNP is high 11 700 urine analysis is negative. Urine drug screen is positive for opiates, oxycodone and tricyclic antidepressant while serum alcohol less than 10. Chest x-ray: Cardiomegaly with possible pulmonary congestion CT of the brain: No acute process. Atrophic changes EKG: Atrial fibrillation with a rate of 83 with right axis deviation and right bundle branch block and QTC 474 patient was started on Solu-Medrol, IV Lasix 01/30/2023 Patient still confused, she still on BiPAP setting of 15/5 with FiO2 of 45% She still have evidence of acidosis with pH of 7.2, pCO2 worse little today more than 70 compared to 60 yesterday. Her oxygen saturation is acceptable, she is afebrile and the rest of vitals stable although she still tachycardic at 111 Her abdomen looks mildly distended but soft area. There is decreased air entry on both sides no wheezing. No leg swelling. Pupils are equal and reactive to light. Her leukocytosis is improved to to 15,000, hemoglobin is stable at 8.2, INR 1.6. Creatinine is stable at 4.4 which is elevated. Liver enzymes elevated, bilirubin is within the reference range. When he is for the patient was placed on lactulose. Production calcitonin is elevated at 0.77. Creatinine Is 471. Echocardiogram: Showed severe right ventricular dilatation with moderate pulmonary hypertension CAT scan of the abdomen and pelvis without contrast showing ileus and mild pancreatitis. Surgical consult is requested. Prognosis is guarded I talked to the Mr. Dunn over the phone and updated the case with him, he says that the patient was sick for the last 2-3 days before hospitalization that she was sleeping a lot. I asked him what her klonopin and he said he takes it for anxiety note for seizure. because of her Change in mentation we going to taper down her klonopin Down to 0.5 daily. 01/31/2023 Patient remains in the ICU in critical condition, she is confused and she is on a Precedex, she could not provide information although she opens eyes continuously and moans. She does not answer questions and she does not follow commands. She still on BiPAP. Her abdomen looks soft still distended. Does not look tender on examination which is limited by her mentation changes. The leg swelling. Weaver catheter in place. NG tube was taken out. Under Repeat chest x-ray from today showing improvement since admission she is on IV Lasix. Yesterday she had about 1.5 L out. Patient remains nothing by mouth because of her pancreatitis and mentation changes. Patient has elevated amylase lipase and CAT scan showing pancreatitis. Of note, patient given because of her CHF actually she is on IV Lasix. Creatinine remains elevated 4.4 but stable, potassium 5.5 which is stable. Liver enzymes actually trending down with AST 805, ALT 2347. Most likely her transaminitis is secondary to her pancreatitis. Also patient cannot tolerate all of a sudden she is not taking Eliquis therefore we might use alternative however him hemoglobin dropped from 8.2 down to 7.3 therefore going to do anemia workup and monitor hemoglobin closely before restarting anticoagulation Elliott is controlled while she is presented 5 mg/h (patient cannot take oral beta teja as well) over her blood pressure is slightly lower. Still systolic more than 100. She remains on Zosyn, doxycycline, some internal 60 mg, IV Lasix 40 mg 3 times a day, IV Protonix 40 mg. Ammonia actually coming down today and is normal at 23. Klonopin is on hold 02/01/2023 pt today is back to basic mentation baseline, she is fully awake and oriented She does not look in distress, his breathing is also improved and she is currently on nasal cannula. She is hemodynamically stable except for tachycardia with heart rate around 112. Beta teja has been increased to 50 mg daily. Her WBCs 14,000, hemoglobin stable at 7.6 and her dose of Eliquis decreased to renal dose of 2.5. 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 Her enzymes and lipase are trending down, looks like her pancreatitis is also improving, no abdominal pain, no vomiting. Diet is going to be a transplant surgery team. Remains on Zosyn, so Medrol 40 mg and Lasix 60 mg every 8 hours Resume the care of the patient on 02/12/2023 Patient is awake alert and hemodynamically stable. She is saturating 98% on room air. She denies chest pain or abdominal pain Abdomen is less distended. Chest mildly tachycardic and tachypneic with a breathing rate around 18-20. She is getting burst of A. fib but most of the time is controlled However her leukocytosis is worsening from 21.3 up to 26. It went down to 15,000 upon admission earlier but now is worse. CT of the abdomen and pelvis without contrast showing: Masslike heterogeneity throughout the pancreatic head of undetermined significance that requires a contrast enhanced study for further evaluation. No bowel obstruction. No hydronephrosis Patient remains with the oral vancomycin and Diflucan. Prednisone down to 30 mg daily. She is on a Protonix and Eliquis 2.5 mg. We'll monitor her diarrhea 02/13/2023 Patients with moderate respiratory distress with tachypnea and tachycardia. Patient currently placed on metoprolol 75 mg twice daily. Also she is getting breathing treatment. Her prednisone dose was lowered to [address] of the abdomen show no colitis and infectious disease team recommended to discontinue oral vancomycin and keep monitoring her ANTIBIOTIC. I'll told the patient and the at bedside about her pancreatic mass that is to follow up as an outpatient. Risk of malignancy are explained and they verbalized understanding and acceptance. She remains on Protonix and 2.5 mg of Eliquis 02/14/2023 Patient breathing is improving and pulmonary team evaluated the patient and he cleared her for discharge from his perspective and actually pulmonary team signed off the case. No chest pain, surgical assist following the patient and pressure in her footwear and controlled and she was placed on metoprolol 75 mg twice a day and then Cardizem 30 mg 4 times a day. And showing improvement in both. Cardiology team recommended an outpatient right heart catheterization for her severe dilated right ventricle. Kidney function is improving and duplicator punch set up operator recommended to continue with oral Lasix 40 mg twice daily. Patient is aware about her pancreatic lesion and possible mass. She is main concern now is musculoskeletal low back pain and tenderness and we started her on lidocaine patch and Elmo 5 mg 1 Possible discharge in 24-48 hours if she keeps improving Objective - Vital Signs Vital signs: Vital Signs Temp 98.7 F 02/14/23 11:42 Pulse 116 H 02/14/23 11:42 Resp 18 02/14/23 11:42 BP 146/83 02/14/23 11:42 Pulse Ox 100 02/14/23 11:42 FiO2 45 01/31/23 08:00 Intake & Output 02/13/23 02/14/23 02/14/23 18:59 06:59 18:59 Other: Voiding Method Bedside Commode # Voids 3 2 1 # Bowel Movements 1 - Exam -GENERAL: The patient is alert and awake, tired, she follows commands, not in any acute distress. Well developed, well nourished. HEENT: Pupils are round and equally reacting to light. EOMI. No scleral icterus. No conjunctival pallor. Normocephalic, atraumatic. No pharyngeal erythema. No thyromegaly. CARDIOVASCULAR: S1 and S2 present. No murmurs, rubs, or gallops. PULMONARY: Decreased air entry in both sides, no wheezing , no crackles. ABDOMEN: Soft, nontender, distended, normoactive bowel sounds. No palpable organomegaly. MUSCULOSKELETAL: No joint swelling or deformity. EXTREMITIES: No cyanosis, clubbing, or pedal edema. NEUROLOGICAL: Gross neurological examination did not reveal any focal deficits. SKIN: No rashes. no petechiae. - Labs CBC & Chem 7: 02/14/23 07:21 02/14/23 07:21 Labs: Abnormal Lab Results - Last 24 Hours (Table) 02/13/23 02/13/23 02/14/23 Range/Units 17:03 20:16 07:21 WBC 17.5 H (3.8-10.6) k/uL Hgb 8.8 L (11.4-16.0) gm/dL Hct 31.3 L (34.0-46.0) % MCV 79.9 L (80.0-100.0) fL MCH 22.5 L (25.0-35.0) pg MCHC 28.1 L (31.0-37.0) g/dL RDW 23.8 H (11.5-15.5) % Neutrophils # 16.1 H (1.3-7.7) k/uL Lymphocytes # 0.9 L (1.0-4.8) k/uL BUN (7-17) mg/dL Creatinine (0.52-1.04) mg/dL Glucose (74-99) mg/dL POC Glucose (mg/dL) 174 H 152 H (70-110) mg/dL ALT (4-34) U/L C-Reactive Protein (<1.0) mg/dL Total Protein (6.3-8.2) g/dL 02/14/23 02/14/23 02/14/23 Range/Units 07:21 08:02 11:41 WBC (3.8-10.6) k/uL Hgb (11.4-16.0) gm/dL Hct (34.0-46.0) % MCV (80.0-100.0) fL MCH (25.0-35.0) pg MCHC (31.0-37.0) g/dL RDW (11.5-15.5) % Neutrophils # (1.3-7.7) k/uL Lymphocytes # (1.0-4.8) k/uL BUN 35 H (7-17) mg/dL Creatinine 1.51 H (0.52-1.04) mg/dL Glucose 107 H (74-99) mg/dL POC Glucose (mg/dL) 113 H 172 H (70-110) mg/dL ALT 52 H (4-34) U/L C-Reactive Protein 3.7 H (<1.0) mg/dL Total Protein 6.1 L (6.3-8.2) g/dL Assessment and Plan Assessment: Masslike heterogeneity of the pancreatic head Acute COPD exacerbation Acute hypoxemic hypercapnic respiratory failure, improved Acute respiratory acidosis combined with metabolic acidosis, improved Metabolic/toxic encephalopathy, improving Acute pancreatitis. Improved Acute renal failure with hyperkalemia, present on admission . Improved cute congestive heart failure with echo shows severely dilated right ventricle and right atrium. Improved transamnitis Atrial fibrillation Anemia Possible colitis with ileus Moderate pulmonary hypertension Chronic atrial fibrillation Hypochromic, microcytic anemia History of CVA/TIA Hypertension Hyperlipidemia History of memory impairment History of osteo-arthritis Chronic neck and back pain status post cervical fusion surgery. Anxiety depression and panic disorder, not in active tissue Plan: Continue with oral Lasix Continue with prednisone Continue with antibiotics Diflucan. oral vancomycin was discontinued monitor WBC Patient and informed about possible pancreatic mass and they verbalized understanding and acceptance to follow up closely as an outpatient Resume home dose of Eliquis 2.5 mg continue with Protonix. Continue with a breathing treatment of bronchodilator Cardiology, pulmonary and nephrology consult on the case Gen. surgery consult also the case Labs and medication were reviewed.. Continue same treatment. Continue with symptomatic treatment. Resume home medication. Monitor labs and vitals. DVT and GI prophylaxis. Further recommendations as per clinical course of the [facility] DVT prophylaxis: Eliquis GI Prophylaxis: Pepcid PT/OT: Pending Prognosis is guarded
[2023-02-14 13:24] LABS: Glucose,Whole Blood 141 mg/dL (70-110)
[2023-02-14] MEDS: LIDOCAINE 5% PATCH TOPICAL SCH (13:25)
[2023-02-14] MEDS: DILTIAZEM ORAL 30 MG TAB PO SCH ×3 (13:25→21:37)
--- NOTE | 2023-02-14 13:50 | P.PN ---
Subjective Progress Note Date: 02/14/23 HISTORY OF PRESENT ILLNESS: 67-year-old with past medical history of CVA/TIA, fibromyalgia, hyperlipidemia, hypertension, memory impairment, osteoarthritis, chronic neck and back pain, atrial fibrillation, congestive heart failure, COPD. Patient smokes tobacco almost everyday. Patient present to the hospital with generalized weakness, drowsiness, and inability to get up. On admission she was significantly confused and her speech was altered. Patient took extra dose of Klonopin before coming to the hospital. Cardiology was consulted to evaluate and manage atrial fibrillation and congestive heart failure.Echocardiogram from 2019 showed an EF of 55%, asymmetrical septal hypertrophy 02/07/2023 Patient is stable from cardiac vessel standpoint. She is having good diuresis with IV Lasix 60 mg twice a day. Her lower swelling has improved significantly. She is tolerating oral diet. Rate controlled atrial fibrillation on telemetry 02/08/2023 Patient examined this morning. She is sitting in the chair. She denies chest pain or pressure. Denies SOB. Remains on oral lasix. BMP from this morning is currently pending. Patient is currently not on telemetry. Documented heart rates 100-120. Blood pressure stable. 02/09/2023 Patient examined this morning. She is sitting up in the chair. Patient denies chest pain or pressure. She denies shortness of breath. Blood pressure stable. Telemetry reveals atrial fibrillation. Heart rate is in the low 100s. 02/10/2023 Patient examined this morning at the bedside. Patient denies chest pain or pressure. She currently denies shortness of breath. Vital signs are stable. Telemetry reveals atrial fibrillation with a heart rate in the low 100s. She continues to report diarrhea. C. diff is negative. She is receiving antibiotics per infectious disease. WBC yesterday 26.37. 02/11/2023 Patient examined this morning at the bedside. Patient denies chest pain or pressure. She denies shortness of breath. Blood pressure has improved with a systolic in the 140s. Telemetry reveals atrial fibrillation with a heart rate in the low 100s. 02/12/2023 Patient examined this afternoon at the bedside. Patient denies chest pain or pressure. She denies shortness of breath. Blood pressure is stable. Telemetry reveals atrial fibrillation with a heart rate around 115. Patient said white count continues to be elevated. Infectious disease ordered CT abdomen and pelvis. Patient is refusing to have this completed and is very adamant about being discharged home today. 02/13/2023 She reports feeling better. Her shortness of breath is the same, on NC 02. Creat stable at 1.5. Heart rates not well controlled 110-120's on tele. 02/14/2023 Pt has no complaints and wants to go home. Heart rates are still not well controlled, 110's on tele. Creat stable 1.5. PHYSICAL EXAM: VITAL SIGNS: Reviewed. GENERAL: Well-developed in no acute distress. NECK: Supple. No JVD or thyromegaly LUNGS: Respirations even and unlabored. Lungs diminished bilaterally. HEART: Irregular rate and rhythm, tachy, S1 and S2 heard. EXTREMITIES: Normal range of motion. No clubbing or cyanosis. Peripheral pulses intact. Bilateral lower extremity edema trace. ASSESSMENT: Acute hypoxic and hypercapnic respiratory failure Acute COPD exacerbation Leukocytosis Acute heart failure with preserved ejection fraction Permanent atrial fibrillation with RVR Pancreatitis with pseudocyst Acute kidney injury Former nicotine dependence PLAN: Heart rates are not well controlled, add cardizem 30mg q6 hour po. Continue metoprolol to 175 mg twice a day. Discussed that her shortness of breath might be related to increase fluid versus pulmonary hypertension versus her atrial fibrillation. Continue telemetry monitoring. Will consider right-sided heart catheterization on an outpatient basis secondary to significant right ventricular dilatation with concerns of possible increased pulmonary pressures. Continue antibiotics per infectious disease. Further recommendations pending patient's course. Nurse practitioner note has been reviewed by physician. Signing provider agrees with the documented findings, assessment, and plan of care. Objective - Vital Signs Vital signs: Vital Signs Temp 98.7 F 02/14/23 11:42 Pulse 116 H 02/14/23 11:42 Resp 18 02/14/23 11:42 BP 146/83 02/14/23 11:42 Pulse Ox 100 02/14/23 11:42 FiO2 45 01/31/23 08:00 Intake & Output 02/13/23 02/14/23 02/14/23 18:59 06:59 18:59 Other: Voiding Method Bedside Commode # Voids 3 2 1 # Bowel Movements 1 - Labs CBC & Chem 7: 02/14/23 07:21 02/14/23 07:21 Labs: Abnormal Lab Results - Last 24 Hours (Table) 02/13/23 02/13/23 02/14/23 Range/Units 17:03 20:16 07:21 WBC 17.5 H (3.8-10.6) k/uL Hgb 8.8 L (11.4-16.0) gm/dL Hct 31.3 L (34.0-46.0) % MCV 79.9 L (80.0-100.0) fL MCH 22.5 L (25.0-35.0) pg MCHC 28.1 L (31.0-37.0) g/dL RDW 23.8 H (11.5-15.5) % Neutrophils # 16.1 H (1.3-7.7) k/uL Lymphocytes # 0.9 L (1.0-4.8) k/uL BUN (7-17) mg/dL Creatinine (0.52-1.04) mg/dL Glucose (74-99) mg/dL POC Glucose (mg/dL) 174 H 152 H (70-110) mg/dL ALT (4-34) U/L C-Reactive Protein (<1.0) mg/dL Total Protein (6.3-8.2) g/dL 02/14/23 02/14/23 02/14/23 Range/Units 07:21 08:02 11:41 WBC (3.8-10.6) k/uL Hgb (11.4-16.0) gm/dL Hct (34.0-46.0) % MCV (80.0-100.0) fL MCH (25.0-35.0) pg MCHC (31.0-37.0) g/dL RDW (11.5-15.5) % Neutrophils # (1.3-7.7) k/uL Lymphocytes # (1.0-4.8) k/uL BUN 35 H (7-17) mg/dL Creatinine 1.51 H (0.52-1.04) mg/dL Glucose 107 H (74-99) mg/dL POC Glucose (mg/dL) 113 H 172 H (70-110) mg/dL ALT 52 H (4-34) U/L C-Reactive Protein 3.7 H (<1.0) mg/dL Total Protein 6.1 L (6.3-8.2) g/dL 02/14/23 Range/Units 13:23 WBC (3.8-10.6) k/uL Hgb (11.4-16.0) gm/dL Hct (34.0-46.0) % MCV (80.0-100.0) fL MCH (25.0-35.0) pg MCHC (31.0-37.0) g/dL RDW (11.5-15.5) % Neutrophils # (1.3-7.7) k/uL Lymphocytes # (1.0-4.8) k/uL BUN (7-17) mg/dL Creatinine (0.52-1.04) mg/dL Glucose (74-99) mg/dL POC Glucose (mg/dL) 141 H (70-110) mg/dL ALT (4-34) U/L C-Reactive Protein (<1.0) mg/dL Total Protein (6.3-8.2) g/dL
--- NOTE | 2023-02-14 15:58 | P.PN ---
Subjective Progress Note Date: 02/14/23 Follow-up for acute kidney injury. No nausea vomiting diarrhea. Urine output not documented. Objective - Vital Signs Vital signs: Vital Signs Temp 98.7 F 02/14/23 11:42 Pulse 116 H 02/14/23 11:42 Resp 18 02/14/23 11:42 BP 146/83 02/14/23 11:42 Pulse Ox 100 02/14/23 11:42 FiO2 45 01/31/23 08:00 Intake & Output 02/13/23 02/14/23 02/14/23 18:59 06:59 18:59 Other: Voiding Method Bedside Commode # Voids 3 2 1 # Bowel Movements 1 - Exam No acute distress S1-S2 heard Lungs clear No edema - Labs CBC & Chem 7: 02/14/23 07:21 02/14/23 07:21 Labs: Abnormal Lab Results - Last 24 Hours (Table) 02/13/23 02/13/23 02/14/23 Range/Units 17:03 20:16 07:21 WBC 17.5 H (3.8-10.6) k/uL Hgb 8.8 L (11.4-16.0) gm/dL Hct 31.3 L (34.0-46.0) % MCV 79.9 L (80.0-100.0) fL MCH 22.5 L (25.0-35.0) pg MCHC 28.1 L (31.0-37.0) g/dL RDW 23.8 H (11.5-15.5) % Neutrophils # 16.1 H (1.3-7.7) k/uL Lymphocytes # 0.9 L (1.0-4.8) k/uL BUN (7-17) mg/dL Creatinine (0.52-1.04) mg/dL Glucose (74-99) mg/dL POC Glucose (mg/dL) 174 H 152 H (70-110) mg/dL ALT (4-34) U/L C-Reactive Protein (<1.0) mg/dL Total Protein (6.3-8.2) g/dL 02/14/23 02/14/23 02/14/23 Range/Units 07:21 08:02 11:41 WBC (3.8-10.6) k/uL Hgb (11.4-16.0) gm/dL Hct (34.0-46.0) % MCV (80.0-100.0) fL MCH (25.0-35.0) pg MCHC (31.0-37.0) g/dL RDW (11.5-15.5) % Neutrophils # (1.3-7.7) k/uL Lymphocytes # (1.0-4.8) k/uL BUN 35 H (7-17) mg/dL Creatinine 1.51 H (0.52-1.04) mg/dL Glucose 107 H (74-99) mg/dL POC Glucose (mg/dL) 113 H 172 H (70-110) mg/dL ALT 52 H (4-34) U/L C-Reactive Protein 3.7 H (<1.0) mg/dL Total Protein 6.1 L (6.3-8.2) g/dL 02/14/23 Range/Units 13:23 WBC (3.8-10.6) k/uL Hgb (11.4-16.0) gm/dL Hct (34.0-46.0) % MCV (80.0-100.0) fL MCH (25.0-35.0) pg MCHC (31.0-37.0) g/dL RDW (11.5-15.5) % Neutrophils # (1.3-7.7) k/uL Lymphocytes # (1.0-4.8) k/uL BUN (7-17) mg/dL Creatinine (0.52-1.04) mg/dL Glucose (74-99) mg/dL POC Glucose (mg/dL) 141 H (70-110) mg/dL ALT (4-34) U/L C-Reactive Protein (<1.0) mg/dL Total Protein (6.3-8.2) g/dL Assessment and Plan Assessment: #1 acute kidney injury secondary to hemodynamic ATN/CRS. -Baseline creatinine 1.0 MG per DL in July 2021. -Admission creatinine of 4.5 MG per DL. -CT abdomen no hydronephrosis. -Urinalysis trace blood and glucose. #2 volume overload improved with diuresis #3 acute on chronic diastolic CHF with pulmonary hypertension #4 anemia #5 acute hypoxic and hypercarbic respiratory failure Plan: #1 renal function stable. #2 continue with current dose of diuretics. #3 daily renal labs #4 avoid nephrotoxic agents
--- NOTE | 2023-02-14 16:11 | P.PN ---
Subjective Progress Note Date: 02/14/23 Principal diagnosis: Leukocytosis Patient is a 67-year-old female presenting to the hospital on 01/28/2023 for evaluation of drowsiness confusion patient has been diagnosed with acute hypercapnic respiratory failure with COPD exacerbation, and also have mildly elevated lipase concerning for mild pancreatitis, patient was noticed to have worsening of the white count prompting this infectious disease consultation. On today's evaluation that is 02/14/2023, the patient denies any fever or chills, the patient is breathing comfortably on 1.5 L nasal cannula supplemental oxygen, the patient denies any chest pain or cough, patient denies nausea/vomiting or diarrhea and no abdominal pain Patient did have a white count is down to 17.5 creatinine is 1.51, blood cultur es has been negative. CT of abdominal pelvis concerning for pericarditis but no evidence of any complications is an abscess and there was no evidence of any colitis reported Objective - Vital Signs Vital signs: Vital Signs Temp 98.7 F 02/14/23 11:42 Pulse 116 H 02/14/23 11:42 Resp 18 02/14/23 11:42 BP 146/83 02/14/23 11:42 Pulse Ox 100 02/14/23 11:42 FiO2 45 01/31/23 08:00 Intake & Output 02/13/23 02/14/23 02/14/23 18:59 06:59 18:59 Other: Voiding Method Bedside Commode # Voids 3 2 1 # Bowel Movements 1 - Exam GENERAL DESCRIPTION: An elderly female lying in bed in no distress RESPIRATORY SYSTEM: Unlabored breathing , decreased breath sounds at bases HEART: S1 S2 regular rate and rhythm , ABDOMEN: Soft , no tenderness EXTREMITIES: No edema feet - Labs CBC & Chem 7: 02/14/23 07:21 02/14/23 07:21 Labs: Abnormal Lab Results - Last 24 Hours (Table) 02/13/23 02/13/23 02/14/23 Range/Units 17:03 20:16 07:21 WBC 17.5 H (3.8-10.6) k/uL Hgb 8.8 L (11.4-16.0) gm/dL Hct 31.3 L (34.0-46.0) % MCV 79.9 L (80.0-100.0) fL MCH 22.5 L (25.0-35.0) pg MCHC 28.1 L (31.0-37.0) g/dL RDW 23.8 H (11.5-15.5) % Neutrophils # 16.1 H (1.3-7.7) k/uL Lymphocytes # 0.9 L (1.0-4.8) k/uL BUN (7-17) mg/dL Creatinine (0.52-1.04) mg/dL Glucose (74-99) mg/dL POC Glucose (mg/dL) 174 H 152 H (70-110) mg/dL ALT (4-34) U/L C-Reactive Protein (<1.0) mg/dL Total Protein (6.3-8.2) g/dL 02/14/23 02/14/23 02/14/23 Range/Units 07:21 08:02 11:41 WBC (3.8-10.6) k/uL Hgb (11.4-16.0) gm/dL Hct (34.0-46.0) % MCV (80.0-100.0) fL MCH (25.0-35.0) pg MCHC (31.0-37.0) g/dL RDW (11.5-15.5) % Neutrophils # (1.3-7.7) k/uL Lymphocytes # (1.0-4.8) k/uL BUN 35 H (7-17) mg/dL Creatinine 1.51 H (0.52-1.04) mg/dL Glucose 107 H (74-99) mg/dL POC Glucose (mg/dL) 113 H 172 H (70-110) mg/dL ALT 52 H (4-34) U/L C-Reactive Protein 3.7 H (<1.0) mg/dL Total Protein 6.1 L (6.3-8.2) g/dL Assessment and Plan (1) Leukocytosis Current Visit: Yes Status: Acute Code(s): D72.829 - ELEVATED WHITE BLOOD CELL COUNT, UNSPECIFIED SNOMED Code(s): 238503681 (2) Diarrhea Current Visit: Yes Status: Acute Code(s): R19.7 - DIARRHEA, UNSPECIFIED SNOMED Code(s): 30127501 Plan: 1patient with elevated white count and this patient has been in the hospital for almost 8 days with initial presentation for weakness was diagnosed with COPD exacerbation also mild pancreatitis on the basis of CT and elevated amylase and lipase patient did have admission improvement in her white count though over the last 3 days her white count has been trending up however the patient has been afebrile denies any bone pain no tenderness was noticed chest x-ray negative for pneumonia no urinary symptoms no problem with the peripheral IV sites 2patient has developed diarrhea and was exposed to antibiotics C. diff was negative patient to continue with a Questran for symptomatic treatment 3-patient did have a persistent elevated white count is more likely just continue steroid use and the patient did have a pancreatitis however there is no evidence of any complications such as pseudocyst or abscess and no evidence of any colitis, the patient white count is trending down without any antibiotic therapy and we'll monitor the patient closely off antibiotic Dictation was produced using [id number] dictation software. please excuse any grammatical, word or spelling errors. Time with Patient: Less than 30
[2023-02-14 17:08] LABS: Glucose,Whole Blood 171 mg/dL (70-110)
[2023-02-14 20:20] LABS: Glucose,Whole Blood 270 mg/dL (70-110)
[2023-02-15] MEDS: METOCLOPRAMIDE 5 MG/ML 2 ML VIAL IVP SCH ×3 (01:43→13:15)
[2023-02-15 02:38] VITALS: RESP 18
[2023-02-15] MEDS: ACETAMINOPHEN TAB 325 MG TAB PO PRN (06:28)
[2023-02-15 07:50] LABS: Glucose,Whole Blood 356 mg/dL (70-110)
[2023-02-15] MEDS: SYMBICORT 160-4.5 MCG INHALER INHALATION SCH (08:15)
[2023-02-15] MEDS: IPRATROPIUM-ALBUTEROL 3 ML NEB INHALATION SCH ×3 (08:15→14:53)
[2023-02-15] MEDS: LIDOCAINE 5% PATCH TOPICAL SCH (08:16)
[2023-02-15] MEDS: DULoxetine HCL 60 MG CAPSULE.DR PO SCH (08:17)
[2023-02-15] MEDS: INSULIN ASPART (NovoLOG) 100 UNIT/ML VIAL SQ SCH ×2 (08:17→13:15)
[2023-02-15] MEDS: predniSONE 10 MG TAB PO SCH (08:17)
[2023-02-15] MEDS: LORATADINE 10 MG TAB PO SCH (08:17)
[2023-02-15] MEDS: SPIRONOLACTONE 25 MG TAB PO SCH (08:17)
[2023-02-15] MEDS: PANTOPRAZOLE 40 MG/10 ML VIAL IVP SCH (08:17)
[2023-02-15] MEDS: FUROSEMIDE 40 MG TAB PO SCH (08:17)
[2023-02-15] MEDS: METOPROLOL SUCCINATE (ER) 25 MG TAB.ER.24H PO SCH (08:17)
[2023-02-15] MEDS: APIXABAN 2.5 MG TABLET PO SCH (08:18)
[2023-02-15] MEDS: DAPAGLIFLOZIN PROPANEDIOL 10 MG TABLET PO SCH (08:18)
[2023-02-15] MEDS: CHOLESTYRAMINE (WITH SUGAR) 4 GM PACKET PO SCH (08:18)
[2023-02-15] MEDS: METOPROLOL SUCCINATE (ER) 100 MG TAB.ER.24H PO SCH (08:18)
[2023-02-15] MEDS: AMIODARONE 200 MG TAB PO SCH (08:18)
[2023-02-15] MEDS: DILTIAZEM ORAL 30 MG TAB PO SCH (08:18)
--- NOTE | 2023-02-15 08:26 | P.PN ---
Subjective Patient is seen in follow-up for acute kidney injury. Renal function stable last few days. Nonoliguric. On po Lasix. Tolerating oral intake. Wants to go home. Vital signs are stable. General: No acute distress. HEENT: Head exam is unremarkable. On nasal cannula. LUNGS: No audible rhonchi or wheezes. HEART: Rate and Rhythm are regular. ABDOMEN: Nontender. EXTREMITITES: Trace edema. Objective - Vital Signs Vital signs: Vital Signs Temp 97.6 F 02/15/23 07:50 Pulse 127 H 02/15/23 07:50 Resp 18 02/15/23 07:50 BP 120/63 02/15/23 07:50 Pulse Ox 93 L 02/15/23 07:50 FiO2 45 01/31/23 08:00 Intake & Output 02/14/23 02/15/23 02/15/23 18:59 06:59 18:59 Intake Total 590 Output Total 1 Balance 589 Intake: Oral 590 Output: Stool 1 Other: Voiding Method Bedside Commode # Voids 2 1 # Bowel Movements 1 1 - Labs CBC & Chem 7: 02/14/23 07:21 02/14/23 07:21 Labs: Abnormal Lab Results - Last 24 Hours (Table) 02/14/23 02/14/23 02/14/23 Range/Units 07:21 07:21 11:41 WBC 17.5 H (3.8-10.6) k/uL Hgb 8.8 L (11.4-16.0) gm/dL Hct 31.3 L (34.0-46.0) % MCV 79.9 L (80.0-100.0) fL MCH 22.5 L (25.0-35.0) pg MCHC 28.1 L (31.0-37.0) g/dL RDW 23.8 H (11.5-15.5) % Neutrophils # 16.1 H (1.3-7.7) k/uL Lymphocytes # 0.9 L (1.0-4.8) k/uL BUN 35 H (7-17) mg/dL Creatinine 1.51 H (0.52-1.04) mg/dL Glucose 107 H (74-99) mg/dL POC Glucose (mg/dL) 172 H (70-110) mg/dL ALT 52 H (4-34) U/L C-Reactive Protein 3.7 H (<1.0) mg/dL Total Protein 6.1 L (6.3-8.2) g/dL 02/14/23 02/14/23 02/14/23 Range/Units 13:23 17:07 20:14 WBC (3.8-10.6) k/uL Hgb (11.4-16.0) gm/dL Hct (34.0-46.0) % MCV (80.0-100.0) fL MCH (25.0-35.0) pg MCHC (31.0-37.0) g/dL RDW (11.5-15.5) % Neutrophils # (1.3-7.7) k/uL Lymphocytes # (1.0-4.8) k/uL BUN (7-17) mg/dL Creatinine (0.52-1.04) mg/dL Glucose (74-99) mg/dL POC Glucose (mg/dL) 141 H 171 H 270 H (70-110) mg/dL ALT (4-34) U/L C-Reactive Protein (<1.0) mg/dL Total Protein (6.3-8.2) g/dL 02/15/23 Range/Units 07:49 WBC (3.8-10.6) k/uL Hgb (11.4-16.0) gm/dL Hct (34.0-46.0) % MCV (80.0-100.0) fL MCH (25.0-35.0) pg MCHC (31.0-37.0) g/dL RDW (11.5-15.5) % Neutrophils # (1.3-7.7) k/uL Lymphocytes # (1.0-4.8) k/uL BUN (7-17) mg/dL Creatinine (0.52-1.04) mg/dL Glucose (74-99) mg/dL POC Glucose (mg/dL) 356 H (70-110) mg/dL ALT (4-34) U/L C-Reactive Protein (<1.0) mg/dL Total Protein (6.3-8.2) g/dL Microbiology - Last 24 Hours (Table) 02/12/23 11:05 Stool Culture - Preliminary Stool Assessment and Plan Plan: Assessment: 1. Acute kidney injury secondary to ATN secondary to hypotension and component of cardiorenal syndrome. UA benign. No hydronephrosis noted on CT. Creatinine 1 in July 2021. Creatinine peaked at 4.5 at this admission and stable at 1.5 last few days. Nonoliguric. 2. Volume overload. Improved with diuresis. 3. Acute on chronic diastolic CHF with moderate tricuspid regurgitation and pulmonary hypertension. 4. Acute pancreatitis. On low fiber diet now. 5. Anemia with severe iron deficiency s/p IV iron. On Aranesp. 6. Acute hypoxic and hypercapnic respiratory failure. 7. Hypokalemia from diuresis. Replaced. Plan: Maintain Lasix and Aldactone. Also on [id number]. Encourage oral intake. Avoid nephrotoxins. Repeat BMP and magnesium level 2-3 days postdischarge. Follow up outpatient 1 week post discharge. Advised patient to follow low salt diet and fluid restriction of less than 50 ounces per day upon discharge. She was also advised to monitor her weight closely at home and to notify physician if develops worsening edema or weight gain of more than 3 pounds in 1 week duration.
[2023-02-15] MEDS ORDERED: DILTIAZEM ORAL 60 MG TAB PO SCH (09:00)
[2023-02-15 09:55] LABS: HCT 32.7 % (37.2-46.3); HGB 8.6 d/dL (12.0-15.0); MCH 21.9 pg (27.0-32.0); MCHC 26.3 d/dL (32.0-37.0); MCV 83.2 FL (80.0-97.0); NRBC Per 100 WBC 0 X 10*3/uL (0.00-0.01); Platelet Count 216 X 10*3/uL (140-440); RBC 3.93 X 10*6/uL (4.10-5.20); RDW 27.6 % (11.5-14.5); WBC 17.83 X 10*3/uL (4.50-10.00)
--- NOTE | 2023-02-15 11:26 | P.PN ---
Subjective Progress Note Date: 02/15/23 HISTORY OF PRESENT ILLNESS: 67-year-old with past medical history of CVA/TIA, fibromyalgia, hyperlipidemia, hypertension, memory impairment, osteoarthritis, chronic neck and back pain, atrial fibrillation, congestive heart failure, COPD. Patient smokes tobacco almost everyday. Patient present to the hospital with generalized weakness, drowsiness, and inability to get up. On admission she was significantly confused and her speech was altered. Patient took extra dose of Klonopin before coming to the hospital. Cardiology was consulted to evaluate and manage atrial fibrillation and congestive heart failure.Echocardiogram from 2019 showed an EF of 55%, asymmetrical septal hypertrophy 02/07/2023 Patient is stable from cardiac vessel standpoint. She is having good diuresis with IV Lasix 60 mg twice a day. Her lower swelling has improved significantly. She is tolerating oral diet. Rate controlled atrial fibrillation on telemetry 02/08/2023 Patient examined this morning. She is sitting in the chair. She denies chest pain or pressure. Denies SOB. Remains on oral lasix. BMP from this morning is currently pending. Patient is currently not on telemetry. Documented heart rates 100-120. Blood pressure stable. 02/09/2023 Patient examined this morning. She is sitting up in the chair. Patient denies chest pain or pressure. She denies shortness of breath. Blood pressure stable. Telemetry reveals atrial fibrillation. Heart rate is in the low 100s. 02/10/2023 Patient examined this morning at the bedside. Patient denies chest pain or pressure. She currently denies shortness of breath. Vital signs are stable. Telemetry reveals atrial fibrillation with a heart rate in the low 100s. She continues to report diarrhea. C. diff is negative. She is receiving antibiotics per infectious disease. WBC yesterday 26.37. 02/11/2023 Patient examined this morning at the bedside. Patient denies chest pain or pressure. She denies shortness of breath. Blood pressure has improved with a systolic in the 140s. Telemetry reveals atrial fibrillation with a heart rate in the low 100s. 02/12/2023 Patient examined this afternoon at the bedside. Patient denies chest pain or pressure. She denies shortness of breath. Blood pressure is stable. Telemetry reveals atrial fibrillation with a heart rate around 115. Patient said white count continues to be elevated. Infectious disease ordered CT abdomen and pelvis. Patient is refusing to have this completed and is very adamant about being discharged home today. 02/13/2023 She reports feeling better. Her shortness of breath is the same, on NC 02. Creat stable at 1.5. Heart rates not well controlled 110-120's on tele. 02/14/2023 Pt has no complaints and wants to go home. Heart rates are still not well controlled, 110's on tele. Creat stable 1.5. 02/15 Patient is seen today in follow-up. Patient is tachycardic and remains in atrial fibrillation on telemetry. Patient has been on Cardizem 30 mg 4 times daily, blood pressure 120/63, afebrile. Patient feels that she is getting stronger. Repeat blood work reveals hemoglobin of 8.6. Patient is currently on oral Lasix and followed by nephrology. PHYSICAL EXAM: VITAL SIGNS: Reviewed. GENERAL: Well-developed in no acute distress. NECK: Supple. No JVD or thyromegaly LUNGS: Respirations even and unlabored. Lungs diminished bilaterally. HEART: Irregular rate and rhythm, tachy, S1 and S2 heard. EXTREMITIES: Normal range of motion. No clubbing or cyanosis. Peripheral pulses intact. Bilateral lower extremity edema trace. ASSESSMENT: Acute hypoxic and hypercapnic respiratory failure Acute COPD exacerbation Leukocytosis Acute heart failure with preserved ejection fraction Permanent atrial fibrillation with RVR Pancreatitis with pseudocyst Acute kidney injury Former nicotine dependence PLAN: Continue patient's current cardiac medications Increase Cardizem to 60 mg 3 times daily for heart rate control Patient is anxious to go home. Patient is cleared from cardiology for discharge and may follow up with Dr. Blackwood in 1 week. Nurse practitioner note has been reviewed by physician. Signing provider agrees with the documented findings, assessment, and plan of care. Objective - Vital Signs Vital signs: Vital Signs Temp 97.6 F 02/15/23 07:50 Pulse 127 H 02/15/23 07:50 Resp 18 02/15/23 07:50 BP 120/63 02/15/23 07:50 Pulse Ox 93 L 02/15/23 07:50 FiO2 45 01/31/23 08:00 Intake & Output 02/14/23 02/15/23 02/15/23 18:59 06:59 18:59 Intake Total 590 Output Total 1 Balance 589 Intake: Oral 590 Output: Stool 1 Other: Voiding Method Bedside Commode # Voids 2 1 # Bowel Movements 1 1 - Labs CBC & Chem 7: 02/15/23 06:11 02/14/23 07:21 Labs: Abnormal Lab Results - Last 24 Hours (Table) 02/14/23 02/14/23 02/14/23 Range/Units 07:21 07:21 11:41 WBC 17.5 H (3.8-10.6) k/uL Hgb 8.8 L (11.4-16.0) gm/dL Hct 31.3 L (34.0-46.0) % MCV 79.9 L (80.0-100.0) fL MCH 22.5 L (25.0-35.0) pg MCHC 28.1 L (31.0-37.0) g/dL RDW 23.8 H (11.5-15.5) % Neutrophils # 16.1 H (1.3-7.7) k/uL Lymphocytes # 0.9 L (1.0-4.8) k/uL BUN 35 H (7-17) mg/dL Creatinine 1.51 H (0.52-1.04) mg/dL Glucose 107 H (74-99) mg/dL POC Glucose (mg/dL) 172 H (70-110) mg/dL ALT 52 H (4-34) U/L C-Reactive Protein 3.7 H (<1.0) mg/dL Total Protein 6.1 L (6.3-8.2) g/dL 02/14/23 02/14/23 02/14/23 Range/Units 13:23 17:07 20:14 WBC (3.8-10.6) k/uL Hgb (11.4-16.0) gm/dL Hct (34.0-46.0) % MCV (80.0-100.0) fL MCH (25.0-35.0) pg MCHC (31.0-37.0) g/dL RDW (11.5-15.5) % Neutrophils # (1.3-7.7) k/uL Lymphocytes # (1.0-4.8) k/uL BUN (7-17) mg/dL Creatinine (0.52-1.04) mg/dL Glucose (74-99) mg/dL POC Glucose (mg/dL) 141 H 171 H 270 H (70-110) mg/dL ALT (4-34) U/L C-Reactive Protein (<1.0) mg/dL Total Protein (6.3-8.2) g/dL 02/15/23 Range/Units 07:49 WBC (3.8-10.6) k/uL Hgb (11.4-16.0) gm/dL Hct (34.0-46.0) % MCV (80.0-100.0) fL MCH (25.0-35.0) pg MCHC (31.0-37.0) g/dL RDW (11.5-15.5) % Neutrophils # (1.3-7.7) k/uL Lymphocytes # (1.0-4.8) k/uL BUN (7-17) mg/dL Creatinine (0.52-1.04) mg/dL Glucose (74-99) mg/dL POC Glucose (mg/dL) 356 H (70-110) mg/dL ALT (4-34) U/L C-Reactive Protein (<1.0) mg/dL Total Protein (6.3-8.2) g/dL Microbiology - Last 24 Hours (Table) 02/12/23 11:05 Stool Culture - Preliminary Stool
[2023-02-15 12:30] LABS: Glucose,Whole Blood 82 mg/dL (70-110)
[2023-02-15 12:51] VITALS: BP 116/75; PULSE 122; TEMP 98.2
--- NOTE | 2023-02-16 06:45 | P.DS ---
Providers Date of admission: 01/28/23 17:56 Attending physician: Armond Herbert MD Consults: 01/28/23 17:58 Consult Physician Urgent Consulting Provider: Casandra Hagan Consult Reason/Comments: criselda Do you want consulting provider notified?: Yes 01/28/23 17:59 Consult Physician Urgent Consulting Provider: Moriah Ramon Consult Reason/Comments: resp failure Do you want consulting provider notified?: Yes Consult Physician Urgent Consulting Provider: Eleno Blackwood Consult Reason/Comments: dyspnea, eval for chf Do you want consulting provider notified?: Yes 02/05/23 11:30 Consult Physician Routine Consulting Provider: Adriano Humphrey Consult Reason/Comments: unexplained leukocytosis Do you want consulting provider notified?: Yes 02/15/23 11:11 Consult Physician Urgent Consulting Provider: Heidi Delgadillo Consult Reason/Comments: possible pancreatic lesion , had pancreatitis on admission Do you want consulting provider notified?: Yes Primary care physician: Karon Yolanda [facility] Course: Diagnoses Masslike heterogeneity of the pancreatic head Acute COPD exacerbation Acute hypoxemic hypercapnic respiratory failure, improved Acute respiratory acidosis combined with metabolic acidosis, improved Metabolic/toxic encephalopathy, improving Acute pancreatitis. Improved Acute renal failure with hyperkalemia, present on admission . Improved cute congestive heart failure with echo shows severely dilated right ventricle and right atrium. Improved transamnitis Atrial fibrillation Anemia Possible colitis with ileus Moderate pulmonary hypertension Chronic atrial fibrillation Hypochromic, microcytic anemia History of CVA/TIA Hypertension Hyperlipidemia History of memory impairment History of osteo-arthritis Chronic neck and back pain status post cervical fusion surgery. Anxiety depression and panic disorder, not in active tissue Hospital course: This is a pleasant 67 years old female with past medical history of CVA/TIA, Fibromyalgia, Hyperlipidemia, Hypertension, Memory Impairment, Osteoarthritis ,chronic neck and back pain, ddd, ARTHRITIS, USES CANE NEEDED FOR FIBROMYALGIA, s/p cervical fusion,, Anxiety, Depression, Panic Disorder, Currently every day smoker Patient presents because of generalized weakness and drowsiness and inability to get up. Patient also was confused. also patient was on Klonopin 1 mg twice a day to help her sleep. On admission she has multiple medical problems and many organs were inspected and she had a prolonged course about 18 days of hospitalization. She has evidence of significantly elevated liver enzymes and significant transaminitis thought secondary to acute pancreatitis. Also she has evidence of hepatic encephalopathy, metabolic/toxic encephalopathy, intra-abdominal infection and sepsis also suspected with acute heart failure on his chronic atrial fibrillation on blood thinner Eliquis (patient has history of CVA/TIA). Also she has evidence of severely dilated right ventricle and right atrium with moderate pulmonary hypertension. She was treated in the intensive care unit in the first half of her hospitalization where she was treated with BiPAP and close monitoring and after stabilization she was transferred to the general medical floor. She has been seen by multiple consultants including pulmonary/critical care team, manager strategic partnerships, GI specialist. She was treated with antibiotics Zosyn, then with oral vancomycin and Diflucan, IV Solu-Medrol, IV Lasix, IV Protonix and then resumed her blood thinner. Her Klonopin was discontinued. CT of the abdomen and pelvis without contrast showing: Masslike heterogeneity throughout the pancreatic head of undetermined significance that requires a contrast enhanced study for further evaluation. Because of this GI consult was obtained and I discussed the case with Dr. Delgadillo patient today was still eager to go home and she agrees to follow up with Dr. Delgadillo in 2 weeks for possible further imaging. However patient remains asymptomatic lack no loss of weight and no anorexia suspicious of malignancy however still patient needs to be very examined as an outpatient, risks are explained extensively to the patient and at bedside including but not limited to the risk of cancer of the pancreas and they verbalized understanding and acceptance. Other than that patient today was so agitated, so eager to go home today. Even threatened to me and to the bedside nurse to leave AMA if she is not going to be discharged today. at bedside also wants her to be discharged as well. I discussed the case. All consultants on the case today included GI service, concrete sculptor and auto rental supervisor who performed to clear her for discharge. Also today her heart rate went up to 1:30 and concrete sculptor increasing her Cardizem 30 mg up to 60 mg and heart rate gets better controlled, still cartilage team cleared for discharge today. Also I confirmed with concrete sculptor team she will be discharged on metoprolol 175 mg twice a day, and amiodarone 200 mg as well as metoprolol dose as above, and ELIQUIS. Physical therapy evaluated the patient and recommended subacute rehab, criminal justice social worker/continuous pillowcase cutter Nirmal was phoned the patient very closely, originally patient was supposed to be discharged to subacute rehab however over the last few days she change her mind and wants to go home with her . I confirmed with the patient and her today and she is adamant to go home rather than rehab. Risks and benefits are explained. She is awake alert, she is breathing quietly, mildly tachypneic, however as above pulmonary service had already cleared her. She uses oxygen 2 L/m at home as needed, I advised patient to keep use it 24 7 until she sees her doctor as an outpatient and she is agreeable. Patient told me she already has oxygen at home. She denies abdominal pain, no diarrhea, she tolerates her food and diet. No urinary complaints. No headache dizziness weakness or numbness. No chest pain or dyspnea. No other new complaints. Patient generally weak but she wants to go home today. Patient was cleared for discharge by all consultants including concrete sculptor, auto rental supervisor, manager strategic partnerships and GI service. Problems and management plan were discussed with the patient and he verbalized understanding and acceptance Patient was found stable and can be discharged home in guarded prognosis however he needs follow-up as an outpatient. Patient was instructed to follow up with PCP Dr. Garvey within one week and patient agrees Patient was instructed to follow up with auto rental supervisor Dr. Adams in 3-[address] Delgadillo from GI on 03/12 her pancreatic mass and she is agreeable as well as well as the at bedside. Patient also wants to follow up with manager strategic partnerships Dr. Hagan in 1 week after discharge as instructed. And patient was instructed to follow up with concrete sculptor Dr. Miner in 1 week after discharge and she is agreeable as were Physical exam Gen: patient is a AAOx3, no distress CVS: S1-S2, RRR, no murmur Lungs: B/L CTA, no wheezing Abdomen: soft, no distention, no tenderness, positive bowel sounds Extremity: no leg edema or induration Time spent more than 35 minutes Patient Condition at Discharge: Serious Plan - Discharge Summary Discharge Rx Participant: No New Discharge Prescriptions: New Darbepoetin Jignesh [Aranesp] 40 mcg SQ Q7D each Loratadine [Claritin] 5 mg PO DAILY tab Sodium Chloride 0.65% Nasal [Deep Sea (Saline)] 2 spray NASAL QID PRN ml PRN Reason: Dry Nasal Passages Acetaminophen Tab [Tylenol] 650 mg PO Q4HR PRN tab PRN Reason: Mild Pain Or Fever > 100.5 Diltiazem Oral [Cardizem*] 60 mg PO TID #90 tab Amiodarone [Cordarone] 200 mg PO DAILY #30 tab Apixaban [Eliquis] 2.5 mg PO BID #60 tab Dapagliflozin Propanediol [Farxiga] 10 mg PO DAILY #30 tab Albuterol Inhaler [Ventolin Hfa Inhaler] 2 puff INHALATION QID #8 gm Metoprolol Succinate (ER) [Toprol XL] 100 mg PO BID #60 tab Metoprolol Succinate (ER) [Toprol XL] 75 mg PO BID #180 tab Ipratropium-Albuterol Nebulize [Duoneb 0.5 mg-3 mg/3 ml Soln] 3 ml INHALATION RT-QID each Ipratropium-Albuterol Nebulize [Duoneb 0.5 mg-3 mg/3 ml Soln] 3 ml INHALATION RT-Q2H PRN each PRN Reason: Shortness Of Breath Or Wheezing Budesonide-Formot 160-4.5 Mcg [Symbicort 160-4.5 Mcg Inhaler] 2 puff INHALATION RT-BID each Spironolactone [Aldactone] 25 mg PO DAILY #30 tablet Furosemide [Lasix] 40 mg PO BID@0900,1600 #60 tab Lidocaine 5% Patch [Lidoderm 5% Patch] 1 patch TOPICAL DAILY 5 Days #5 patch predniSONE 10 mg PO DAILY 5 Days #5 tab Pantoprazole [Protonix] 40 mg PO BID 30 Days #60 tab Continue DULoxetine HCL [Cymbalta] 120 mg PO DAILY Famotidine [Pepcid] 20 mg PO BID Discontinued Mirtazapine [Remeron] 45 mg PO HS oxyCODONE-APAP 10-325MG [Percocet 10-325 mg] 1 tab PO BID clonazePAM [KlonoPIN] 1 mg PO BID Metoprolol Succinate (ER) [Toprol Xl] 50 mg PO DAILY Apixaban [Eliquis] 5 mg PO BID Cyclobenzaprine [Flexeril] 5 mg PO BID PRN PRN Reason: Muscle Pain Spironolactone [Aldactone] 25 mg PO DAILY Potassium Chloride ER [K-Dur 20] 20 meq PO DAILY Amiodarone [Cordarone] 200 mg PO DAILY dilTIAZem HCL [dilTIAZem HCL 24Hr ER (Xr)] 120 mg PO DAILY Suvorexant [Belsomra] 20 mg PO HS Torsemide [Demadex] 40 mg PO BID Morphine Sulfate ER [Ms Contin] 30 mg PO Q12HR Discharge Medication List DULoxetine HCL [Cymbalta] 120 mg PO DAILY 01/15/15 [History] Famotidine [Pepcid] 20 mg PO BID 01/28/23 [History] Acetaminophen Tab [Tylenol] 650 mg PO Q4HR PRN tab 02/10/23 [Rx] Budesonide-Formot 160-4.5 Mcg [Symbicort 160-4.5 Mcg Inhaler] 2 puff INHALATION RT-BID each 02/10/23 [Rx] Darbepoetin Jignesh [Aranesp] 40 mcg SQ Q7D each 02/10/23 [Rx] Ipratropium-Albuterol Nebulize [Duoneb 0.5 mg-3 mg/3 ml Soln] 3 ml INHALATION RT-Q2H PRN each 02/10/23 [Rx] Ipratropium-Albuterol Nebulize [Duoneb 0.5 mg-3 mg/3 ml Soln] 3 ml INHALATION RT-QID each 02/10/23 [Rx] Loratadine [Claritin] 5 mg PO DAILY tab 02/10/23 [Rx] Sodium Chloride 0.65% Nasal [Deep Sea (Saline)] 2 spray NASAL QID PRN ml 02/10/23 [Rx] Albuterol Inhaler [Ventolin Hfa Inhaler] 2 puff INHALATION QID #8 gm 02/15/23 [Rx] Amiodarone [Cordarone] 200 mg PO DAILY #30 tab 02/15/23 [Rx] Apixaban [Eliquis] 2.5 mg PO BID #60 tab 02/15/23 [Rx] Dapagliflozin Propanediol [Farxiga] 10 mg PO DAILY #30 tab 02/15/23 [Rx] Diltiazem Oral [Cardizem*] 60 mg PO TID #90 tab 02/15/23 [Rx] Furosemide [Lasix] 40 mg PO BID@0900,1600 #60 tab 02/15/23 [Rx] Lidocaine 5% Patch [Lidoderm 5% Patch] 1 patch TOPICAL DAILY 5 Days #5 patch 02/15/23 [Rx] Metoprolol Succinate (ER) [Toprol XL] 75 mg PO BID #180 tab 02/15/23 [Rx] Metoprolol Succinate (ER) [Toprol XL] 100 mg PO BID #60 tab 02/15/23 [Rx] Pantoprazole [Protonix] 40 mg PO BID 30 Days #60 tab 02/15/23 [Rx] Spironolactone [Aldactone] 25 mg PO DAILY #30 tablet 02/15/23 [Rx] predniSONE 10 mg PO DAILY 5 Days #5 tab 02/15/23 [Rx] Follow up Appointment(s)/Referral(s): Eleno Blackwood MD [Medical Doctor] - 1 Week (heart doctor , we recomend to do right heart catheterization as outpatient with your doctor ) Casandra Hagan MD [STAFF PHYSICIAN] - 1 Week (Please call and make follow up appointment the office was not avaiable for calls.) [facility] [NON-STAFF] - 1 Week Heidi Delgadillo MD [STAFF PHYSICIAN] - 03/08/23 4:15 pm (Optometry Doctor for your pancreatic lesion. ) Karon Garvey DO [Primary Care Provider] - 02/19/23 11:40 am (we recommend to recheck your blood tests with your doctor including your (white cell count ) .) Trish Adams MD [STAFF PHYSICIAN] - 04/01/23 2:00 pm Ambulatory/Diagnostic Orders: Complete Blood Count w/diff [LAB.AMB] Time Frame: 3 Days, Location: None Selected Patient Instructions/Handouts: Heart Failure (DC), Acute Kidney Injury (DC) Activity/Diet/Wound Care/Special Instructions: Activity as tolerated Follow-up with pulmonary outpatient Follow-up with nephrology outpatient Follow-up with cardiology outpatient Continue taking medications as prescribed Complete prednisone taper as prescribed Avoid ELDER COUNSELOR and narcotic agents Repeat CBC, BMP, magnesium in 2-3 days Continue fiber diet Continue using incentive spirometer at least 10 times every hour while awake Continue monitoring Accu-Cheks before meals and at bedtime Continue sliding scale NovoLog sliding scale 0-150 equals 0 units 151-200 equals 2 units 201-250 equals 4 units 251-300 equals 6 units 301-350 equals 8 units 351-400 equals 10 units Please notify provider if blood sugar is 400 or above we recommend to do right heart catheterizing as outpatient with your doctor Heart healthy diet Activity is restricted till you see your doctor We recommend to check your glucose 4 times a day, before each meal and at bedtime, keep the results in a log book and bring into your doctor on your appointment date If glucose less than 70 or more than 400 then call 911 and come to emergency room we recommend to recheck your blood tests with your doctor including your (white cell count ) we recommend using oxygen 2 l/m continuously for your till you see your doctor in one week please Discharge Disposition: HOME WITH HOME HEALTH SERVICES
== END 2023-02-15 15:27 | disposition home health service (06) | DRG 871 ==
LOC: EC 14:11 → 3SCARD 17:56 → 2SICU 01-30 12:24 → 5NMEDONC 02-06 06:29
PROVIDERS: ADMIT Internal Medicine; ATTEND Internal Medicine
PROC: 5A09357 Assistance with Respiratory Ventilation, Less than 24 Consecutive Hours, Continuous Positive Airway Pressure (ICD-10-PCS; principal; 2023-01-28)
DX: A41.9 Sepsis, unspecified organism (principal); G92.8 Other toxic encephalopathy; I50.33 Acute on chronic diastolic (congestive) heart failure; J96.21 Acute and chronic respiratory failure with hypoxia; J96.22 Acute and chronic respiratory failure with hypercapnia; K72.00 Acute and subacute hepatic failure without coma; K85.80 Other acute pancreatitis without necrosis or infection; N17.0 Acute kidney failure with tubular necrosis; K56.7 Ileus, unspecified; E87.1 Hypo-osmolality and hyponatremia; I13.0 Hypertensive heart and chronic kidney disease with heart failure and stage 1 through stage 4 chronic kidney disease, or unspecified chronic kidney disease; I48.21 Permanent atrial fibrillation; J44.1 Chronic obstructive pulmonary disease with (acute) exacerbation; K86.3 Pseudocyst of pancreas; E87.4 Mixed disorder of acid-base balance; E11.22 Type 2 diabetes mellitus with diabetic chronic kidney disease; R65.20 Severe sepsis without septic shock; I27.20 Pulmonary hypertension, unspecified; N18.9 Chronic kidney disease, unspecified; F32.A Depression, unspecified; I07.1 Rheumatic tricuspid insufficiency; K76.82 Hepatic encephalopathy; D63.1 Anemia in chronic kidney disease; L89.312 Pressure ulcer of right buttock, stage 2; D50.9 Iron deficiency anemia, unspecified; R19.09 Other intra-abdominal and pelvic swelling, mass and lump; K52.9 Noninfective gastroenteritis and colitis, unspecified; E78.5 Hyperlipidemia, unspecified; E87.5 Hyperkalemia; E87.6 Hypokalemia; T50.2X5A Adverse effect of carbonic-anhydrase inhibitors, benzothiadiazides and other diuretics, initial encounter; F17.210 Nicotine dependence, cigarettes, uncomplicated; F41.0 Panic disorder [episodic paroxysmal anxiety]; G47.00 Insomnia, unspecified; G47.30 Sleep apnea, unspecified; G89.29 Other chronic pain; R45.1 Restlessness and agitation; I45.10 Unspecified right bundle-branch block; K21.9 Gastro-esophageal reflux disease without esophagitis; M79.7 Fibromyalgia; M54.2 Cervicalgia; T38.0X5A Adverse effect of glucocorticoids and synthetic analogues, initial encounter; Z79.01 Long term (current) use of anticoagulants; Z79.51 Long term (current) use of inhaled steroids; Z79.899 Other long term (current) drug therapy; Z86.73 Personal history of transient ischemic attack (TIA), and cerebral infarction without residual deficits; Z98.1 Arthrodesis status; Z79.891 Long term (current) use of opiate analgesic; Z71.3 Dietary counseling and surveillance; Z28.21 Immunization not carried out because of patient refusal
CPT/HCPCS: 36415; 36600; 51702; 70450; 71045; 71046; 74176; 76705; 76770; 80048; 80053; 80076; 80306; 80320; 81001; 81003; 82140; 82150; 82550; 82607; 82728; 82746; 82805; 83036; 83540; 83550; 83605; 83690; 83735; 83880; 84132; 84145; 84484; 85025; 85027; 85610; 85730; 86140; 87040; 87045; 87046; 87324; 93005; 93306; 94640; 94660; 94760; 96365; 96375; 96376; 99291

== ENCOUNTER 2023-02-15 17:05 | Observation (INO) | payer MEDICARE, OTHER ==
--- NOTE | 2023-02-15 17:47 | ED ---
General Adult HPI - General Chief complaint: Weakness Stated complaint: weakness Time Seen by Provider: 02/15/23 17:22 Source: patient, EMS, RN notes reviewed Mode of arrival: EMS Limitations: physical limitation - History of Present Illness Initial comments: 67-year-old female presents to the emergency room with chief complaint of generalized weakness. Patient states that she was just discharged from the hospital today. She states that she went to go into her house but states that she could not walk because she felt very weak. She states that she was hospital for 2 weeks and did not move much she was here. He reports that she did not want to go to rehab initially because she thought she would be able to get around at home. Today she returns to the emergency department for hopes to get into rehab. - Related Data Home Medications Medication Instructions Recorded Confirmed DULoxetine HCL [Cymbalta] 120 mg PO DAILY 01/15/15 02/15/23 Famotidine [Pepcid] 20 mg PO BID 01/28/23 02/15/23 Previous Rx's Medication Instructions Recorded Acetaminophen Tab [Tylenol] 650 mg PO Q4HR PRN tab 02/10/23 Budesonide-Formot 160-4.5 Mcg 2 puff INHALATION RT-BID each 02/10/23 [Symbicort 160-4.5 Mcg Inhaler] Darbepoetin Jignesh [Aranesp] 40 mcg SQ Q7D each 02/10/23 Ipratropium-Albuterol Nebulize 3 ml INHALATION RT-Q2H PRN each 02/10/23 [Duoneb 0.5 mg-3 mg/3 ml Soln] Ipratropium-Albuterol Nebulize 3 ml INHALATION RT-QID each 02/10/23 [Duoneb 0.5 mg-3 mg/3 ml Soln] Loratadine [Claritin] 5 mg PO DAILY tab 02/10/23 Sodium Chloride 0.65% Nasal [Deep 2 spray NASAL QID PRN ml 02/10/23 Sea (Saline)] Albuterol Inhaler [Ventolin Hfa 2 puff INHALATION QID #8 gm 02/15/23 Inhaler] Amiodarone [Cordarone] 200 mg PO DAILY #30 tab 02/15/23 Apixaban [Eliquis] 2.5 mg PO BID #60 tab 02/15/23 Dapagliflozin Propanediol [Farxiga] 10 mg PO DAILY #30 tab 02/15/23 Diltiazem Oral [Cardizem*] 60 mg PO TID #90 tab 02/15/23 Furosemide [Lasix] 40 mg PO BID@0900,1600 #60 tab 02/15/23 Lidocaine 5% Patch [Lidoderm 5% 1 patch TOPICAL DAILY 5 Days #5 02/15/23 Patch] patch Metoprolol Succinate (ER) [Toprol 75 mg PO BID #180 tab 02/15/23 XL] Metoprolol Succinate (ER) [Toprol 100 mg PO BID #60 tab 02/15/23 XL] Pantoprazole [Protonix] 40 mg PO BID 30 Days #60 tab 02/15/23 Spironolactone [Aldactone] 25 mg PO DAILY #30 tablet 02/15/23 predniSONE 10 mg PO DAILY 5 Days #5 tab 02/15/23 Allergies Allergy/AdvReac Type Severity Reaction Status Date / Time No Known Allergies Allergy Verified 02/15/23 18:54 Review of Systems ROS Statement: Those systems with pertinent positive or pertinent negative responses have been documented in the HPI. ROS Other: All systems not noted in ROS Statement are negative. Past Medical History Past Medical History: CVA/TIA, Fibromyalgia, Hyperlipidemia, Hypertension, Memory Impairment, Osteoarthritis (OA) Additional Past Medical History / Comment(s): chronic neck and back pain, ddd, ARTHRITIS, USES CANE NEEDED FOR FIBROMYALGIA History of Any Multi-Drug Resistant Organisms: None Reported Past Surgical History: Hernia Repair, Hysterectomy Additional Past Surgical History / Comment(s): cervical fusion, Past Anesthesia/Blood Transfusion Reactions: No Reported Reaction Past Psychological History: Anxiety, Depression, Panic Disorder Smoking Status: Former smoker Past Alcohol Use History: None Reported Past Drug Use History: None Reported - Past Family History Mother Family Medical History: Cancer General Exam Limitations: physical limitation General appearance: alert, in no apparent distress Head exam: Present: atraumatic, normocephalic, normal inspection Eye exam: Present: normal appearance, PERRL, EOMI. Absent: scleral icterus, conjunctival injection, periorbital swelling ENT exam: Present: normal exam, mucous membranes moist Respiratory exam: Present: normal lung sounds bilaterally. Absent: respiratory distress, wheezes, rales, rhonchi, stridor Cardiovascular Exam: Present: regular rate, normal rhythm, normal heart sounds. Absent: systolic murmur, diastolic murmur, rubs, gallop, clicks GI/Abdominal exam: Present: soft, normal bowel sounds. Absent: distended, tenderness, guarding, rebound, rigid Extremities exam: Present: normal inspection, full ROM, normal capillary refill. Absent: tenderness, pedal edema, joint swelling, calf tenderness Neurological exam: Present: alert, oriented X3 Psychiatric exam: Present: normal affect, normal mood Skin exam: Present: warm, dry, intact, normal color. Absent: rash Course Vital Signs 02/15/23 02/15/23 02/15/23 17:08 19:48 22:00 Temperature 98.2 F 97.8 F Pulse Rate 126 H 87 102 H Respiratory 18 18 18 Rate Blood Pressure 138/81 113/71 120/84 O2 Sat by Pulse 92 L 95 95 Oximetry Medical Decision Making - Medical Decision Making Was pt. sent in by a medical professional or institution (, PA, PRESS OFFICER, urgent care, hospital, or fdc...) When possible be specific @ -No Did you speak to anyone other than the patient for history (EMS, parent, family, police, friend...)? What history was obtained from this source @ -No Did you review nursing and triage notes (agree or disagree)? Why? @ -I reviewed and agree with nursing and triage notes Were old charts reviewed (outside hosp., previous admission, EMS record, old EKG, old radiological studies, urgent care reports/EKG's, fdc records)? Report findings @ -No old charts were reviewed Differential Diagnosis (chest pain, altered mental status, abdominal pain women, abdominal pain men, vaginal bleeding, weakness, fever, dyspnea, syncope, headache, dizziness, GI bleed, back pain, seizure, CVA, palpatations, mental health, musculoskeletal)? @ -not applicable EKG interpreted by me (3pts min.). @ -EKG at 1737 shows A. fib with RVR rate 123, QRS 110, QTQTc [id number] X-rays interpreted by me (1pt min.). @ -None done CT interpreted by me (1pt min.). @ -None done U/S interpreted by me (1pt. min.). @ -None done What testing was considered but not performed or refused? (CT, X-rays, U/S, labs)? Why? @ -None What meds were considered but not given or refused? Why? @ -None Did you discuss the management of the patient with other professionals (professionals i.e. , PA, PRESS OFFICER, lab, RT, psych nurse, manager social responsibility, rn security, teacher, physics technical officer, lead case manager)? Give summary @ -Case discussed with Giselle Rapp with [facility] who is accepting of the admission Was smoking cessation discussed for >3mins.? @ -No Was critical care preformed (if so, how long)? @ -No Were there social determinants of health that impacted care today? How? (Homelessness, low income, unemployed, alcoholism, drug addiction, transportation, low edu. Level, literacy, decrease access to med. care, senior care, rehab)? @ -No Was there de-escalation of care discussed even if they declined (Discuss DNR or withdrawal of care, Hospice)? DNR status @ -No What co-morbidities impacted this encounter? (DM, HTN, Smoking, COPD, CAD, Cancer, CVA, ARF, Chemo, Hep., AIDS, mental health diagnosis, sleep apnea, m orbid obesity)? @ -None Was patient admitted / discharged? Hospital course, mention meds given and route, prescriptions, significant lab abnormalities, going to OR and other pertinent info. @ -admitted patient presented to the emergency department for chief complaint of generalized weakness. Patient just discharged from hospital today. She states that she went home and tried to get into her house but was unable to because of weakness. She returned to the ED with hopes of going to rehab. Laboratory studies obtained which are consistent with what they were when she was admitted. Patient will be admitted with PT consultation. Case was discussed with Giselle Rapp with [facility] who is accepting of the admission. Undiagnosed new problem with uncertain prognosis? @ -No Drug Therapy requiring intensive monitoring for toxicity (Heparin, Nitro, Insulin, Cardizem)? @ -No Were any procedures done? @ -No Diagnosis/symptom? @ -generalized weakness Acute, or Chronic, or Acute on Chronic? @ -acute Uncomplicated (without systemic symptoms) or Complicated (systemic symptoms)? @ -uncomplicated Side effects of treatment? @ -No Exacerbation, Progression, or Severe Exacerbation? @ -No Poses a threat to life or bodily function? How? (Chest pain, USA, MA, pneumonia, PE, COPD, DKA, ARF, appy, cholecystitis, CVA, Diverticulitis, Homicidal, Suicidal, threat to staff... and all critical care pts) @ -No - Lab Data Result diagrams: 02/15/23 18:30 02/15/23 20:09 Lab Results 02/15/23 Range/Units 18:30 WBC 14.7 H (3.8-10.6) k/uL RBC 3.78 L (3.80-5.40) m/uL Hgb 8.7 L (11.4-16.0) gm/dL Hct 29.7 L (34.0-46.0) % MCV 78.5 L (80.0-100.0) fL MCH 23.0 L (25.0-35.0) pg MCHC 29.3 L (31.0-37.0) g/dL RDW 24.7 H (11.5-15.5) % Plt Count 157 (150-450) k/uL MPV 10.1 Neutrophils % 91 % Lymphocytes % 4 % Monocytes % 4 % Eosinophils % 1 % Basophils % 0 % Neutrophils # 13.3 H (1.3-7.7) k/uL Lymphocytes # 0.6 L (1.0-4.8) k/uL Monocytes # 0.6 (0-1.0) k/uL Eosinophils # 0.1 (0-0.7) k/uL Basophils # 0.0 (0-0.2) k/uL Hypochromasia Marked Poikilocytosis Slight Anisocytosis Marked Microcytosis Moderate Disposition Clinical Impression: Afib, Generalized weakness Disposition: ADMITTED IP TO THIS HOSP Condition: Stable Is patient prescribed a controlled substance at d/c from ED?: No
[2023-02-15] MEDS ORDERED: LIDOCAINE 5% PATCH TOPICAL STA (17:50)
[2023-02-15 19:12] LABS: Anisocytosis Marked; Basophils % (A) 0 %; Eosinophils # (A) 0.1 k/uL (0-0.7); Eosinophils % (A) 1 %; HCT 29.7 % (34.0-46.0); HGB 8.7 gm/dL (11.4-16.0); Hypochromasia Marked; Lymphocytes # (A) 0.6 k/uL (1.0-4.8); Lymphocytes % (A) 4 %; MCHC 29.3 g/dL (31.0-37.0); MCV 78.5 fL (80.0-100.0); Mean Platelet Volume 10.1; Microcytosis Moderate; Monocytes # (A) 0.6 k/uL (0-1.0); Monocytes % (A) 4 %; Neutrophils # (A) 13.3 k/uL (1.3-7.7); Neutrophils % (A) 91 %; Platelet Count 157 k/uL (150-450); Poikilocytosis Slight; RBC 3.78 m/uL (3.80-5.40); RDW 24.7 % (11.5-15.5); WBC 14.7 k/uL (3.8-10.6)
[2023-02-15] MEDS ORDERED: NALOXONE 0.4 MG/ML 1 ML VIAL IV PRN (20:06)
[2023-02-15] MEDS ORDERED: ACETAMINOPHEN TAB 325 MG TAB PO PRN ×2 (20:06→20:24)
[2023-02-15] MEDS ORDERED: MORPHINE SULFATE 4 MG/ML SYRINGE IV PRN (20:06)
[2023-02-15] MEDS ORDERED: IPRATROPIUM-ALBUTEROL 3 ML NEB INHALATION PRN (20:24)
[2023-02-15] MEDS ORDERED: SODIUM CHLORIDE 0.65% NASAL SPRAY 44 ML BTL NASAL PRN (20:24)
[2023-02-15 20:49] LABS: INR 1.1 (<1.2); Prothrombin Time 11.8 sec (10.0-12.5)
[2023-02-15 20:52] LABS: Partial Thromboplastin Time 18.1 sec (22.0-30.0)
[2023-02-15 21:01] LABS: ALT 41 U/L (4-34); African American GFR (CKD) 48 (>60 ml/min/1.73 sqM); Anion Gap 9 mmol/L; Blood Urea Nitrogen 35 mg/dL (7-17); Calcium 9.3 mg/dL (8.4-10.2); Carbon Dioxide 24 mmol/L (22-30); Chloride 106 mmol/L (98-107); Glucose 102 mg/dL (74-99); Magnesium 2.1 mg/dL (1.6-2.3); Non-African American GFR(CKD) 41 (>60 ml/min/1.73 sqM); Phosphorus 3.7 mg/dL (2.5-4.5); Sodium 139 mmol/L (137-145); Total Bilirubin 0.9 mg/dL (0.2-1.3)
[2023-02-15 21:06] LABS: AST 50 U/L (14-36); Albumin 3.3 g/dL (3.5-5.0); Alkaline Phosphatase 51 U/L (38-126); Potassium 4.8 mmol/L (3.5-5.1)
[2023-02-15] MEDS ORDERED: ALBUTEROL HFA INHALER INHALATION SCH (22:00)
[2023-02-15] MEDS: APIXABAN 2.5 MG TABLET PO SCH (22:03)
[2023-02-15] MEDS: METOPROLOL SUCCINATE (ER) 100 MG TAB.ER.24H PO SCH (22:03)
[2023-02-15] MEDS: PANTOPRAZOLE 40 MG TABLET PO SCH (22:03)
[2023-02-15] MEDS: DILTIAZEM ORAL 60 MG TAB PO SCH ×2 (22:04→22:06)
[2023-02-15] MEDS: METOPROLOL SUCCINATE (ER) 25 MG TAB.ER.24H PO SCH (22:04)
[2023-02-15] MEDS: SYMBICORT 160-4.5 MCG INHALER INHALATION SCH (22:04)
[2023-02-15] MEDS: FAMOTIDINE 20 MG TAB PO SCH (22:07)
[2023-02-16] MEDS: IPRATROPIUM-ALBUTEROL 3 ML NEB INHALATION SCH ×4 (08:11→19:34)
[2023-02-16] MEDS: SYMBICORT 160-4.5 MCG INHALER INHALATION SCH ×2 (08:11→19:34)
[2023-02-16] MEDS: LIDOCAINE 5% PATCH TOPICAL SCH (10:33)
[2023-02-16] MEDS: PANTOPRAZOLE 40 MG TABLET PO SCH ×2 (10:37→15:14)
[2023-02-16] MEDS: AMIODARONE 200 MG TAB PO SCH (10:38)
[2023-02-16] MEDS: DAPAGLIFLOZIN PROPANEDIOL 10 MG TABLET PO SCH (10:38)
[2023-02-16] MEDS: METOPROLOL SUCCINATE (ER) 25 MG TAB.ER.24H PO SCH ×2 (10:38→20:46)
[2023-02-16] MEDS: APIXABAN 2.5 MG TABLET PO SCH ×2 (10:38→20:46)
[2023-02-16] MEDS: METOPROLOL SUCCINATE (ER) 100 MG TAB.ER.24H PO SCH ×2 (10:39→20:46)
[2023-02-16] MEDS: predniSONE 10 MG TAB PO SCH (10:40)
[2023-02-16] MEDS: SPIRONOLACTONE 25 MG TAB PO SCH (10:40)
[2023-02-16] MEDS: ACETAMINOPHEN TAB 325 MG TAB PO PRN ×3 (10:41→20:44)
[2023-02-16] MEDS: FAMOTIDINE 20 MG TAB PO SCH (10:42)
[2023-02-16] MEDS: FUROSEMIDE 40 MG TAB PO SCH ×2 (10:42→15:14)
[2023-02-16] MEDS: LORATADINE 10 MG TAB PO SCH (10:43)
[2023-02-16] MEDS: DULoxetine HCL 60 MG CAPSULE.DR PO SCH (11:50)
--- NOTE | 2023-02-16 12:16 | XR ---
EXAMINATION TYPE: XR chest 2V DATE OF EXAM: 02/16/2023 COMPARISON: 02/08/2023 TECHNIQUE: PA and lateral views submitted. HISTORY: Postop shortness of breath FINDINGS: The lungs are clear and there is no pneumothorax, pleural effusion, or focal pneumonia. Volume loss with elevated left hemidiaphragm. Marked cardiomegaly. Mild central interstitial prominence with unde rlying COPD. Degenerative changes of the spine. IMPRESSION: 1. Cardiomegaly with elevated left hemidiaphragm and volume loss. Very mild central interstitial viji a in the differential diagnosis. Correlate clinically.
[2023-02-16] MEDS ORDERED: LOPERAMIDE 2 MG CAP PO PRN (13:07)
--- NOTE | 2023-02-16 13:10 | P.HPIM ---
History of Present Illness This is a pleasant 67 years old female with past medical history of CVA/TIA, Fibromyalgia, Hyperlipidemia, Hypertension, Memory Impairment, Osteoarthritis ,chronic neck and back pain, ddd, ARTHRITIS, USES CANE NEEDED FOR FIBROMY ALGIA, s/p cervical fusion,, Anxiety, Depression, Panic Disorder, Currently every day smoker patient was just discharged yesterday from the hospital after prolonged hospital stay For multiple medical issues. She was very weak and physical therapy recommended subacute rehab, patient and declined to rehab and they were adamant to go home with her . They've and she threatened to leave AMA if she is not going to be discharged home. Once she went home she could not get into the porch and required 2 people to help her up into the chair and was she got there she collapsed and passed out for a few seconds, and then she had to come back to the hospital Patient presents because of generalized weakness and drowsiness and inability to get up. Patient also was confused. also patient was on Klonopin 1 mg twice a day to help her sleep. On admission she has multiple medical problems and many organs were inspected and she had a prolonged course about 18 days of hospitalization. She has evidence of significantly elevated liver enzymes and significant transaminitis thought secondary to acute pancreatitis. Also she has evidence of hepatic encephalopathy, metabolic/toxic encephalopathy, intra-abdominal infection and sepsis also suspected with acute heart failure on his chronic a trial fibrillation on blood thinner Eliquis (patient has history of CVA/TIA). Also she has evidence of severely dilated right ventricle and right atrium with moderate pulmonary hypertension. She was treated in the intensive care unit in the first half of her hospitalization where she was treated with BiPAP and close monitoring and after stabilization she was transferred to the [facility]. She has been seen by multiple consultants including pulmonary/critical care team, lead medical technologist, GI specialist. She was treated with antibiotics Zosyn, then with oral vancomycin and Diflucan, IV Solu-Medrol, IV Lasix, IV Protonix and then resumed her blood thinner. Her Klonopin was discontinued. CT of the abdomen and pelvis without contrast showing: Masslike heterogeneity throughout the pancreatic head of undetermined significance that requires a contrast enhanced study for further evaluation. Because of this GI consult was obtained and I discussed the case with Dr. Delgadillo patient today was still eager to go home and she agrees to follow up with Dr. Delgadillo in 2 weeks for possible further imaging. However patient remains asymptomatic lack no loss of weight and no anorexia suspicious of malignancy however still patient needs to be very examined as an outpatient, risks are explained extensively to the patient and at bedside including but not limited to the risk of cancer of the pancreas and they verbalized understanding and acceptance. This Patient went home and she was very weak and come back to the hospital Currently she is lying in bed mildly tachypneic with respiratory difficulty, her chest x-ray showing similar findings with severely enlarged heart, mainly on the right side of the heart(cardiology for planning for right-sided cardiac cath as an outpatient). Also her heart rate was elevated this range of 120-140. She is kept on her metoprolol 175 mg twice a day Cardizem 60 mg every 8 hours and amiodarone 200 mg. Also she is on Eliquis for her history of CVA. cardiology team were consulted She denies chest pain. No abdominal pain or diarrhea. No urinary complaints. No headache dizziness weakness or numbness. She has mild leukocytosis of 14.7, hemoglobin 8.7, platelet normal, INR is unremarkable. Creatinine at baseline 1.3. Rest of the BMP is unremarkable, liver enzymes mildly elevated but bilirubin is normal. EKG showed A. fib with RVR at 123 Review of Systems Review of systems CONSTITUTIONAL: No fever, no malaise, no fatigue. HEENT: No recent visual problems or hearing problems. Denied any sore throat. CARDIOVASCULAR: No orthopnea, PND, no palpitations, no syncope. PULMONARY: No chest wall tenderness, no hemoptysis. GASTROINTESTINAL: No diarrhea, no nausea, no vomiting, no abdominal pain. No rmoactive bowel sounds. NEUROLOGICAL: No headaches, no weakness, no numbness. HEMATOLOGICAL: Denies any bleeding or petechiae. GENITOURINARY: Denies any burning micturition, frequency, or urgency. MUSCULOSKELETAL/RHEUMATOLOGICAL: Denies any joint pain, swelling, or any muscle pain. ENDOCRINE: Denies any polyuria or polydipsia. Past Medical History Past Medical History: CVA/TIA, Fibromyalgia, Hyperlipidemia, Hypertension, Memory Impairment, Osteoarthritis (OA) Additional Past Medical History / Comment(s): chronic neck and back pain, ddd, ARTHRITIS, USES CANE NEEDED FOR FIBROMYALGIA History of Any Multi-Drug Resistant Organisms: None Reported Past Surgical History: Hernia Repair, Hysterectomy Additional Past Surgical History / Comment(s): cervical fusion, Past Anesthesia/Blood Transfusion Reactions: No Reported Reaction Past Psychological History: Anxiety, Depression, Panic Disorder Smoking Status: Former smoker Past Alcohol Use History: None Reported Past Drug Use History: None Reported - Past Family History Mother Family Medical History: Cancer Medications and Allergies Home Medications Medication Instructions Recorded Confirmed Type DULoxetine HCL [Cymbalta] 120 mg PO DAILY 01/15/15 02/15/23 History Famotidine [Pepcid] 20 mg PO BID 01/28/23 02/15/23 History Acetaminophen Tab [Tylenol] 650 mg PO Q4HR PRN tab 02/10/23 02/15/23 Rx Budesonide-Formot 160-4.5 Mcg 2 puff INHALATION RT-BID each 02/10/23 02/15/23 Rx [Symbicort 160-4.5 Mcg Inhaler] Darbepoetin Jignesh [Aranesp] 40 mcg SQ Q7D each 02/10/23 02/15/23 Rx Ipratropium-Albuterol Nebulize 3 ml INHALATION RT-Q2H PRN each 02/10/23 02/15/23 Rx [Duoneb 0.5 mg-3 mg/3 ml Soln] Ipratropium-Albuterol Nebulize 3 ml INHALATION RT-QID each 02/10/23 02/15/23 Rx [Duoneb 0.5 mg-3 mg/3 ml Soln] Loratadine [Claritin] 5 mg PO DAILY tab 02/10/23 02/15/23 Rx Sodium Chloride 0.65% Nasal [Deep 2 spray NASAL QID PRN ml 02/10/23 02/15/23 Rx Sea (Saline)] Albuterol Inhaler [Ventolin Hfa 2 puff INHALATION QID #8 gm 02/15/23 02/15/23 Rx Inhaler] Amiodarone [Cordarone] 200 mg PO DAILY #30 tab 02/15/23 02/15/23 Rx Apixaban [Eliquis] 2.5 mg PO BID #60 tab 02/15/23 02/15/23 Rx Dapagliflozin Propanediol [Farxiga] 10 mg PO DAILY #30 tab 02/15/23 02/15/23 Rx Diltiazem Oral [Cardizem*] 60 mg PO TID #90 tab 02/15/23 02/15/23 Rx Furosemide [Lasix] 40 mg PO BID@0900,1600 #60 tab 02/15/23 02/15/23 Rx Lidocaine 5% Patch [Lidoderm 5% 1 patch TOPICAL DAILY 5 Days #5 02/15/23 02/15/23 Rx Patch] patch Metoprolol Succinate (ER) [Toprol 75 mg PO BID #180 tab 02/15/23 02/15/23 Rx XL] Metoprolol Succinate (ER) [Toprol 100 mg PO BID #60 tab 02/15/23 02/15/23 Rx XL] Pantoprazole [Protonix] 40 mg PO BID 30 Days #60 tab 02/15/23 02/15/23 Rx Spironolactone [Aldactone] 25 mg PO DAILY #30 tablet 02/15/23 02/15/23 Rx predniSONE 10 mg PO DAILY 5 Days #5 tab 02/15/23 02/15/23 Rx Allergies Allergy/AdvReac Type Severity Reaction Status Date / Time No Known Allergies Allergy Verified 02/15/23 18:54 Physical Exam Vitals: Vital Signs Temp Pulse Pulse Resp BP BP Pulse Ox 02/16/23 10:23 98.7 F 142 H 16 132/88 95 02/16/23 08:40 117 H 24 02/16/23 07:36 97.8 F 117 H 24 136/92 92 L 02/16/23 07:15 98.1 F 98 16 119/92 02/16/23 02:15 98.0 F 109 H 16 106/68 96 02/15/23 22:40 97.7 F 104 H 16 123/73 96 02/15/23 22:00 102 H 18 120/84 95 02/15/23 19:48 97.8 F 87 18 113/71 95 02/15/23 17:08 98.2 F 126 H 18 138/81 92 L Intake and Output 02/15/23 02/16/23 02/16/23 22:59 06:59 14:59 Intake Total 240 590 Output Total 400 Balance 240 590 -400 Intake: Oral 240 590 Output: Urine 400 Other: # Voids 3 1 # Bowel Movements 1 Weight 99.79 kg -GENERAL: The patient is alert and oriented x3, not in any acute distress. O bese. Generally weak HEENT: Pupils are round and equally reacting to light. EOMI. No scleral icterus. No conjunctival pallor. Normocephalic, atraumatic. No pharyngeal erythema. No thyromegaly. CARDIOVASCULAR: S1 and S2 present. No murmurs, rubs, or gallops. -PULMONARY: Chest is clear to auscultation, no wheezing , no crackles. Mildly tachypneic ABDOMEN: Soft, nontender, nondistended, normoactive bowel sounds. No palpable organomegaly. MUSCULOSKELETAL: No joint swelling or deformity. EXTREMITIES: No cyanosis, clubbing, or pedal edema. NEUROLOGICAL: Gross neurological examination did not reveal any focal deficits. SKIN: No rashes. no petechiae. Results CBC & Chem 7: 02/15/23 18:30 02/15/23 20:09 Labs: Abnormal Lab Results - Last 24 Hours (Table) 02/15/23 02/15/23 02/15/23 Range/Units 18:30 20:09 20:23 WBC 14.7 H (3.8-10.6) k/uL RBC 3.78 L (3.80-5.40) m/uL Hgb 8.7 L (11.4-16.0) gm/dL Hct 29.7 L (34.0-46.0) % MCV 78.5 L (80.0-100.0) fL MCH 23.0 L (25.0-35.0) pg MCHC 29.3 L (31.0-37.0) g/dL RDW 24.7 H (11.5-15.5) % Neutrophils # 13.3 H (1.3-7.7) k/uL Lymphocytes # 0.6 L (1.0-4.8) k/uL APTT 18.1 L (22.0-30.0) sec BUN 35 H (7-17) mg/dL Creatinine 1.34 H (0.52-1.04) mg/dL Glucose 102 H (74-99) mg/dL AST 50 H (14-36) U/L ALT 41 H (4-34) U/L Total Protein 6.0 L (6.3-8.2) g/dL Albumin 3.3 L (3.5-5.0) g/dL Assessment and Plan Assessment: A. fib with RVR Severe generalized weakness with benefit from subacute versus inpatient rehab Masslike heterogeneity of the pancreatic head, she needs outpatient follow-up with Dr. Delgadillo in 2 weeks after discharge for possible further imaging COPD with no exacerbation Chronic hypoxemic hypercapnic respiratory failure, improved Acute respiratory acidosis combined with metabolic acidosis, improved Metabolic/toxic encephalopathy, improving Acute pancreatitis. Improved Acute renal failure with hyperkalemia, present on admission . Improved cute congestive heart failure with echo shows severely dilated right ventricle and right atrium. Improved transamnitis Anemia, Chronic Possible colitis with ileus, Improved Moderate pulmonary hypertension Chronic atrial fibrillation Hypochromic, microcytic anemia History of CVA/TIA Hypertension Hyperlipidemia History of memory impairment History of osteo-arthritis Chronic neck and back pain status post cervical fusion surgery. Anxiety depression and panic disorder, not in active tissue Plan: Continue with metoprolol, Cardizem and amiodarone Cardiology consult Continue with the blood thinner Eliquis Physical therapy evaluation Continue keep monitoring she'll need follow-up outpatient with Dr. Delgadillo from GI for possible pancreatic mass Labs and medication were reviewed.. Continue same treatment. Continue with symptomatic treatment. Resume home medication. Monitor labs and vitals. DVT and GI prophylaxis. Further recommendations as per clinical course of the patient DVT prophylaxis: Eliquis GI Prophylaxis: Pepcid PT/OT: Pending Prognosis is guarded
--- NOTE | 2023-02-16 14:43 | P.CRDCN ---
History of Present Illness Consult date: 02/16/23 Consult reason: atrial fibrillation (With RVR) History of present illness: History of present illness: This is a 67-year-old female with past medical history of CVA, fibromyalgia, hypertension, hyperlipidemia, memory impairment, osteoarthritis, chronic neck and back pain, atrial fibrillation, congestive heart failure and COPD, active tobacco use. Patient presented to the hospital initially back on 01/28 for generalized weakness drowsiness and inability to get up. We have been following her for acute heart failure with preserved EF, A. fib with RVR, chronic A. fib. Patient was discharged home yesterday and cleared by cardiology at that time. A number of medication changes were made which were addressed at the time of discharge by attending. She states that she got home and she collapsed on the steps. She states she had some shortness of breath, no chest pain, no syncopal episodes. She thought she had palpitations with activity. She states she passed out this morning in bed. EKG atrial fibrillation at 123 bpm Chest x-ray: Cardiomegaly with elevated left hemidiaphragm and volume loss. Very mild central interstitial edema in the differential. WBC 14.7, hemoglobin 8.7, platelet count 157. INR 1.1. Electrolytes normal. BUN 35 creatinine 1.34. Blood sugar 102. AST 50, ALT 51, alkaline phosphatase 51. Home cardiac medications: Amiodarone 200 mg daily, eliquis 2.5 mg twice daily, Farxiga 10 mg daily, Cardizem 60 mg 3 times daily, Lasix 40 mg twice daily, Toprol-XL 175 mg twice daily, Aldactone 25 mg daily Echocardiogram performed 01/28/2023 reveals LVH with preserved systolic function. Severe right ventricular enlargement with moderate pulmonary hypertension. Biatrial enlargement. Review Of Systems: At the time of my evaluation: Constitutional: No fever, no chills. + weakness, + fatigue. EENT: No headache. No dizziness. Lungs: No shortness of breath, cough, no sputum production. No wheezing. + SILVER Cardiovascular: No chest pain, no lower extremity edema. No palpitations. No paroxysmal nocturnal dyspnea. No orthopnea. No lightheadedness or dizziness. No syncopal episodes. Abdominal: No abdominal pain. No nausea, vomiting. No diarrhea. No constipation. No bloody or tarry stools. Genitourinary: No dysuria.. No urinary retention. Musculoskeletal: No myalgias. No muscle weakness, no frequent falls. No back pain. No neck pain. Integumentary: No wounds. No rash. No unusual bruising. Neurologic: No aphasia. No facial droop. No change in mentation. No head injury. No headache. Physical examination: Gen: This is a 67-year-old female resting in bed and appears to be comfortable and in no acute distress VITAL SIGNS: Reviewed. GENERAL: Well-developed in no acute distress. NECK: Supple. No JVD or thyromegaly LUNGS: Respirations even and unlabored. Lungs diminished bilaterally. HEART: Irregular rate and rhythm, S1 and S2 heard. EXTREMITIES: Normal range of motion. No clubbing or cyanosis. Peripheral pulses intact. Bilateral lower extremity edema trace. Assessment: A. fib with RVR, permanent Chronic heart failure with preserved EF Generalized weakness and debility History of CVA Hypertension Hyperlipidemia COPD Plan: Resume patient's home medications No need to repeat echocardiogram Further recommendations to follow based upon clinical course Thank you kindly for this consultation. Nurse practitioner note has been reviewed, I agree with documented findings and plan of care. Patient was seen and examined. Past Medical History Past Medical History: CVA/TIA, Fibromyalgia, Hyperlipidemia, Hypertension, Memory Impairment, Osteoarthritis (OA) Additional Past Medical History / Comment(s): chronic neck and back pain, ddd, ARTHRITIS, USES CANE NEEDED FOR FIBROMYALGIA History of Any Multi-Drug Resistant Organisms: None Reported Past Surgical History: Hernia Repair, Hysterectomy Additional Past Surgical History / Comment(s): cervical fusion, Past Anesthesia/Blood Transfusion Reactions: No Reported Reaction Past Psychological History: Anxiety, Depression, Panic Disorder Smoking Status: Former smoker Past Alcohol Use History: None Reported Past Drug Use History: None Reported - Past Family History Mother Family Medical History: Cancer Medications and Allergies Home Medications Medication Instructions Recorded Confirmed Type DULoxetine HCL [Cymbalta] 120 mg PO DAILY 01/15/15 02/15/23 History Famotidine [Pepcid] 20 mg PO BID 01/28/23 02/15/23 History Acetaminophen Tab [Tylenol] 650 mg PO Q4HR PRN tab 02/10/23 02/15/23 Rx Budesonide-Formot 160-4.5 Mcg 2 puff INHALATION RT-BID each 02/10/23 02/15/23 Rx [Symbicort 160-4.5 Mcg Inhaler] Darbepoetin Jignesh [Aranesp] 40 mcg SQ Q7D each 02/10/23 02/15/23 Rx Ipratropium-Albuterol Nebulize 3 ml INHALATION RT-Q2H PRN each 02/10/23 02/15/23 Rx [Duoneb 0.5 mg-3 mg/3 ml Soln] Ipratropium-Albuterol Nebulize 3 ml INHALATION RT-QID each 02/10/23 02/15/23 Rx [Duoneb 0.5 mg-3 mg/3 ml Soln] Loratadine [Claritin] 5 mg PO DAILY tab 02/10/23 02/15/23 Rx Sodium Chloride 0.65% Nasal [Deep 2 spray NASAL QID PRN ml 02/10/23 02/15/23 Rx Sea (Saline)] Albuterol Inhaler [Ventolin Hfa 2 puff INHALATION QID #8 gm 02/15/23 02/15/23 Rx Inhaler] Amiodarone [Cordarone] 200 mg PO DAILY #30 tab 02/15/23 02/15/23 Rx Apixaban [Eliquis] 2.5 mg PO BID #60 tab 02/15/23 02/15/23 Rx Dapagliflozin Propanediol [Farxiga] 10 mg PO DAILY #30 tab 02/15/23 02/15/23 Rx Diltiazem Oral [Cardizem*] 60 mg PO TID #90 tab 02/15/23 02/15/23 Rx Furosemide [Lasix] 40 mg PO BID@0900,1600 #60 tab 02/15/23 02/15/23 Rx Lidocaine 5% Patch [Lidoderm 5% 1 patch TOPICAL DAILY 5 Days #5 02/15/23 02/15/23 Rx Patch] patch Metoprolol Succinate (ER) [Toprol 75 mg PO BID #180 tab 02/15/23 02/15/23 Rx XL] Metoprolol Succinate (ER) [Toprol 100 mg PO BID #60 tab 02/15/23 02/15/23 Rx XL] Pantoprazole [Protonix] 40 mg PO BID 30 Days #60 tab 02/15/23 02/15/23 Rx Spironolactone [Aldactone] 25 mg PO DAILY #30 tablet 02/15/23 02/15/23 Rx predniSONE 10 mg PO DAILY 5 Days #5 tab 02/15/23 02/15/23 Rx Allergies Allergy/AdvReac Type Severity Reaction Status Date / Time No Known Allergies Allergy Verified 02/15/23 18:54 Physical Exam Vitals: Vital Signs Temp Pulse Pulse Resp BP BP Pulse Ox 02/16/23 12:49 98.5 F 103 H 20 136/97 97 02/16/23 10:23 98.7 F 142 H 16 132/88 95 02/16/23 08:40 117 H 24 02/16/23 07:36 97.8 F 117 H 24 136/92 92 L 02/16/23 07:15 98.1 F 98 16 119/92 02/16/23 02:15 98.0 F 109 H 16 106/68 96 02/15/23 22:40 97.7 F 104 H 16 123/73 96 02/15/23 22:00 102 H 18 120/84 95 02/15/23 19:48 97.8 F 87 18 113/71 95 02/15/23 17:08 98.2 F 126 H 18 138/81 92 L Intake and Output 02/15/23 02/16/23 02/16/23 22:59 06:59 14:59 Intake Total 240 590 Output Total 400 Balance 240 590 -400 Intake: Oral 240 590 Output: Urine 400 Other: # Voids 3 1 # Bowel Movements 1 Weight 99.79 kg Results 02/15/23 18:30 02/15/23 20:09 Cardiac Enzymes 02/15/23 Range/Units 20:09 AST 50 H (14-36) U/L Coagulation 02/15/23 Range/Units 20:23 PT 11.8 (10.0-12.5) sec APTT 18.1 L (22.0-30.0) sec CBC 02/15/23 Range/Units 18:30 WBC 14.7 H (3.8-10.6) k/uL RBC 3.78 L (3.80-5.40) m/uL Hgb 8.7 L (11.4-16.0) gm/dL Hct 29.7 L (34.0-46.0) % Plt Count 157 (150-450) k/uL Comprehensive Metabolic Panel 02/15/23 Range/Units 20:09 Sodium 139 (137-145) mmol/L Potassium 4.8 (3.5-5.1) mmol/L Chloride 106 (98-107) mmol/L Carbon Dioxide 24 (22-30) mmol/L BUN 35 H (7-17) mg/dL Creatinine 1.34 H (0.52-1.04) mg/dL Glucose 102 H (74-99) mg/dL Calcium 9.3 (8.4-10.2) mg/dL AST 50 H (14-36) U/L ALT 41 H (4-34) U/L Alkaline Phosphatase 51 (38-126) U/L Total Protein 6.0 L (6.3-8.2) g/dL Albumin 3.3 L (3.5-5.0) g/dL Current Medications Generic Name Dose Route Start Last Admin Trade Name Freq PRN Reason Stop Dose Admin Acetaminophen 650 mg 02/15/23 23:06 02/16/23 10:41 Acetaminophen Tab 325 Mg Tab PO 650 mg Q6HR PRN Administration Mild Pain or Fever > 100.5 Albuterol/Ipratropium 3 ml 02/15/23 20:24 Ipratropium-Albuterol 3 Ml Neb INHALATION RT-Q2H PRN Shortness Of Breath Or Wheezing Albuterol/Ipratropium 3 ml 02/16/23 08:00 02/16/23 11:11 Ipratropium-Albuterol 3 Ml Neb INHALATION Not Given RT-QID ISIDORO Amiodarone HCl 200 mg 02/16/23 09:00 02/16/23 10:38 Amiodarone 200 Mg Tab PO 200 mg DAILY ISIDORO Administration Apixaban 2.5 mg 02/15/23 21:00 02/16/23 10:38 Apixaban 2.5 Mg Tablet PO 2.5 mg BID ISIDORO Administration Protocol Budesonide/Formoterol Fumarate 2 puff 02/15/23 21:00 02/16/23 08:11 Symbicort 160-4.5 Mcg Inhaler INHALATION Not Given RT-BID ISIDORO Dapagliflozin 10 mg 02/16/23 09:00 02/16/23 10:38 Dapagliflozin Propanediol 10 Mg Tablet PO 10 mg DAILY ISIDORO Administration Darbepoetin Jignesh 40 mcg 02/18/23 09:00 Darbepoetin Jignesh 40 Mcg/0.4 Ml Syringe SQ Q7D ISIDORO Diltiazem HCl 60 mg 02/15/23 22:00 02/15/23 22:06 Diltiazem Oral 60 Mg Tab PO 60 mg TID ISIDORO Administration Duloxetine HCl 120 mg 02/16/23 09:00 02/16/23 11:50 Duloxetine Hcl 60 Mg Capsule.Dr PO 120 mg DAILY ISIDORO Administration Famotidine 20 mg 02/17/23 09:00 Famotidine 20 Mg Tab PO DAILY ISIDORO Furosemide 40 mg 02/16/23 09:00 02/16/23 10:42 Furosemide 40 Mg Tab PO 40 mg BID@0900,1600 ISIDORO Administration Lidocaine 1 patch 02/16/23 09:00 02/16/23 10:33 Lidocaine 5% Patch TOPICAL 1 patch DAILY ISIDORO Administration Protocol Loperamide HCl 2 mg 02/16/23 13:07 Loperamide 2 Mg Cap PO QID PRN Diarrhea Loratadine 5 mg 02/16/23 09:00 02/16/23 10:43 Loratadine 10 Mg Tab PO 5 mg DAILY ISIDORO Administration Metoprolol Succinate 75 mg 02/15/23 21:00 02/16/23 10:38 Metoprolol Succinate (Er) 25 Mg Tab.Er.24h PO 75 mg BID ISIDORO Administration Metoprolol Succinate 100 mg 02/15/23 21:00 02/16/23 10:39 Metoprolol Succinate (Er) 100 Mg Tab.Er.24h PO 100 mg BID ISIDORO Administration Naloxone HCl 0.2 mg 02/15/23 20:06 Naloxone 0.4 Mg/Ml 1 Ml Vial IV Q2M PRN Opioid Reversal Pantoprazole Sodium 40 mg 02/15/23 21:00 02/16/23 10:37 Pantoprazole 40 Mg Tablet PO 40 mg AC-BID ISIDORO Administration Prednisone 10 mg 02/16/23 09:00 02/16/23 10:40 Prednisone 10 Mg Tab PO 10 mg DAILY ISIDORO Administration Sodium Chloride 2 spray 02/15/23 20:24 Sodium Chloride 0.65% Nasal [place] 44 Ml Btl NASAL QID PRN Dry Nasal Passages Spironolactone 25 mg 02/16/23 09:00 02/16/23 10:40 Spironolactone 25 Mg Tab PO 25 mg DAILY ISIDORO Administration Intake and Output 10/30/23 10/31/23 10/31/23 22:59 06:59 14:59 Intake Total 240 590 Output Total 400 Balance 240 590 -400 Intake: Oral 240 590 Output: Urine 400 Other: # Voids 3 1 # Bowel Movements 1 Weight 99.79 kg 02/15/23 18:30 02/15/23 20:09
[2023-02-16] MEDS: DILTIAZEM ORAL 60 MG TAB PO SCH ×2 (15:14→20:46)
[2023-02-17] MEDS: ACETAMINOPHEN TAB 325 MG TAB PO PRN (05:58)
[2023-02-17] MEDS: PANTOPRAZOLE 40 MG TABLET PO SCH ×2 (05:58→17:06)
[2023-02-17] MEDS: SYMBICORT 160-4.5 MCG INHALER INHALATION SCH ×2 (07:52→18:19)
[2023-02-17] MEDS: IPRATROPIUM-ALBUTEROL 3 ML NEB INHALATION SCH ×4 (07:52→18:19)
[2023-02-17] MEDS: LIDOCAINE 5% PATCH TOPICAL SCH (09:30)
[2023-02-17] MEDS: AMIODARONE 200 MG TAB PO SCH (09:34)
[2023-02-17] MEDS: DULoxetine HCL 60 MG CAPSULE.DR PO SCH (09:35)
[2023-02-17] MEDS: DAPAGLIFLOZIN PROPANEDIOL 10 MG TABLET PO SCH (09:35)
[2023-02-17] MEDS: APIXABAN 2.5 MG TABLET PO SCH ×2 (09:35→21:48)
[2023-02-17] MEDS: DILTIAZEM ORAL 60 MG TAB PO SCH ×3 (09:35→21:48)
[2023-02-17] MEDS: FAMOTIDINE 20 MG TAB PO SCH (09:37)
[2023-02-17] MEDS: FUROSEMIDE 40 MG TAB PO SCH ×2 (09:37→17:06)
[2023-02-17] MEDS: LORATADINE 10 MG TAB PO SCH (09:37)
[2023-02-17] MEDS: METOPROLOL SUCCINATE (ER) 25 MG TAB.ER.24H PO SCH ×2 (09:38→21:48)
[2023-02-17] MEDS: SPIRONOLACTONE 25 MG TAB PO SCH (09:39)
[2023-02-17] MEDS: METOPROLOL SUCCINATE (ER) 100 MG TAB.ER.24H PO SCH ×2 (09:39→21:48)
[2023-02-17] MEDS: predniSONE 10 MG TAB PO SCH (09:39)
[2023-02-17] MEDS ORDERED: LIDOCAINE 4% CREAM 5 GM TUBE TOPICAL ONE (10:05)
--- NOTE | 2023-02-17 11:19 | P.PN ---
Subjective Progress Note Date: 02/17/23 History of present illness: This is a 67-year-old female with past medical history of CVA, fibromyalgia, h ypertension, hyperlipidemia, memory impairment, osteoarthritis, chronic neck and back pain, atrial fibrillation, congestive heart failure and COPD, active tobacco use. Patient presented to the hospital initially back on 01/28 for generalized weakness drowsiness and inability to get up. We have been following her for acute heart failure with preserved EF, A. fib with RVR, chronic A. fib. Patient was discharged home yesterday and cleared by cardiology at that time. A number of medication changes were made which were addressed at the time of discharge by attending. She states that she got home and she collapsed on the steps. She states she had some shortness of breath, no chest pain, no syncopal episodes. She thought she had palpitations with activity. She states she passed out this morning in bed. EKG atrial fibrillation at 123 bpm Chest x-ray: Cardiomegaly with elevated left hemidiaphragm and volume loss. Very mild central interstitial edema in the differential. WBC 14.7, hemoglobin 8.7, platelet count 157. INR 1.1. Electrolytes normal. BUN 35 creatinine 1.34. Blood sugar 102. AST 50, ALT 51, alkaline phosphatase 51. Home cardiac medications: Amiodarone 200 mg daily, eliquis 2.5 mg twice daily, Farxiga 10 mg daily, Cardizem 60 mg 3 times daily, Lasix 40 mg twice daily, Toprol-XL 175 mg twice daily, Aldactone 25 mg daily Echocardiogram performed 01/28/2023 reveals LVH with preserved systolic function. Severe right ventricular enlargement with moderate pulmonary hypertension. Biatrial enlargement. 02/17 Patient is seen today in follow up. Patient denies having any chest pain, no dizziness or lightheadedness. No palpitations. Telemetry is atrial fibrillati on at 100 bpm and occasionally jumping up to 120s. Blood pressure 140/90, pulse ox 95% on room air. Physical examination: Gen: This is a 67-year-old female resting in bed and appears to be comfortable and in no acute distress VITAL SIGNS: Reviewed. GENERAL: Well-developed in no acute distress. NECK: Supple. No JVD or thyromegaly LUNGS: Respirations even and unlabored. Lungs diminished bilaterally. HEART: Irregular rate and rhythm, S1 and S2 heard. EXTREMITIES: Normal range of motion. No clubbing or cyanosis. Peripheral pulses intact. Bilateral lower extremity edema trace. Assessment: A. fib with RVR, permanent Chronic heart failure with preserved EF Generalized weakness and debility History of CVA Hypertension Hyperlipidemia COPD Plan: Continue patient's home medications No need to repeat echocardiogram Patient is cleared for discharge from cardiology. Patient may follow-up in the office in one to 2 weeks. Nurse practitioner note has been reviewed, I agree with documented findings and plan of care. Patient was seen and examined. Objective - Vital Signs Vital signs: Vital Signs Temp 97.5 F L 02/17/23 02:00 Pulse 101 H 02/17/23 02:00 Resp 18 02/17/23 02:00 BP 140/90 02/17/23 02:00 Pulse Ox 94 L 02/17/23 02:00 FiO2 Intake & Output 02/16/23 02/17/23 02/17/23 18:59 06:59 18:59 Intake Total 600 Output Total 400 Balance -400 600 Intake: IV 10 0.9 10 Oral 590 Output: Urine 400 Other: Voiding Method Bedside Commode # Voids 1 3 # Bowel Movements 1 - Labs CBC & Chem 7: 02/15/23 18:30 02/15/23 20:09
[2023-02-17] MEDS: Acetaminophen-Codeine 300-30mg TAB PO PRN (17:06)
[2023-02-18] MEDS: Acetaminophen-Codeine 300-30mg TAB PO PRN ×3 (00:54→13:53)
[2023-02-18 01:15] VITALS: RESP 16
[2023-02-18 07:41] LABS: Anisocytosis Marked; Basophils % (A) 0 %; Eosinophils # (A) 0.1 k/uL (0-0.7); Eosinophils % (A) 1 %; HCT 31.2 % (34.0-46.0); HGB 8.5 gm/dL (11.4-16.0); Hypochromasia Marked; Lymphocytes # (A) 0.6 k/uL (1.0-4.8); Lymphocytes % (A) 6 %; MCHC 27.3 g/dL (31.0-37.0); MCV 80.6 fL (80.0-100.0); Macrocytosis Slight; Mean Platelet Volume 9.2; Microcytosis Moderate; Monocytes # (A) 0.5 k/uL (0-1.0); Monocytes % (A) 5 %; Neutrophils # (A) 8.7 k/uL (1.3-7.7); Neutrophils % (A) 88 %; Platelet Count 298 k/uL (150-450); Poikilocytosis Slight; RBC 3.88 m/uL (3.80-5.40); WBC 9.9 k/uL (3.8-10.6)
[2023-02-18] MEDS: LIDOCAINE 5% PATCH TOPICAL SCH (07:45)
[2023-02-18] MEDS: DILTIAZEM ORAL 60 MG TAB PO SCH (07:47)
[2023-02-18] MEDS: predniSONE 10 MG TAB PO SCH (07:47)
[2023-02-18] MEDS: METOPROLOL SUCCINATE (ER) 25 MG TAB.ER.24H PO SCH (07:47)
[2023-02-18] MEDS: PANTOPRAZOLE 40 MG TABLET PO SCH (07:47)
[2023-02-18] MEDS: APIXABAN 2.5 MG TABLET PO SCH (07:47)
[2023-02-18] MEDS: DAPAGLIFLOZIN PROPANEDIOL 10 MG TABLET PO SCH (07:47)
[2023-02-18] MEDS: DULoxetine HCL 60 MG CAPSULE.DR PO SCH (07:47)
[2023-02-18] MEDS: FUROSEMIDE 40 MG TAB PO SCH (07:48)
[2023-02-18] MEDS: LORATADINE 10 MG TAB PO SCH (07:48)
[2023-02-18] MEDS: FAMOTIDINE 20 MG TAB PO SCH (07:48)
[2023-02-18] MEDS: AMIODARONE 200 MG TAB PO SCH (07:48)
[2023-02-18] MEDS: SPIRONOLACTONE 25 MG TAB PO SCH (07:48)
[2023-02-18] MEDS: METOPROLOL SUCCINATE (ER) 100 MG TAB.ER.24H PO SCH (07:49)
[2023-02-18 07:58] LABS: ALT 37 U/L (4-34); AST 25 U/L (14-36); African American GFR (CKD) 65 (>60 ml/min/1.73 sqM); Albumin 3.4 g/dL (3.5-5.0); Albumin/Globulin Ratio 1.4; Alkaline Phosphatase 61 U/L (38-126); Anion Gap 12 mmol/L; Blood Urea Nitrogen 19 mg/dL (7-17); Calcium 9.4 mg/dL (8.4-10.2); Carbon Dioxide 24 mmol/L (22-30); Chloride 108 mmol/L (98-107); Globulin 2.5 g/dL; Glucose 104 mg/dL (74-99); Non-African American GFR(CKD) 56 (>60 ml/min/1.73 sqM); Potassium 3.9 mmol/L (3.5-5.1); Sodium 144 mmol/L (137-145); Total Bilirubin 0.7 mg/dL (0.2-1.3); Total Protein 5.9 g/dL (6.3-8.2)
[2023-02-18] MEDS ORDERED: ZINC OXIDE PASTE (Z-GUARD) 1 APPLIC APPLIC TOPICAL PRN (07:58)
[2023-02-18 08:04] VITALS: BP 142/91; PULSE 109; TEMP 98.4
[2023-02-18] MEDS: SYMBICORT 160-4.5 MCG INHALER INHALATION SCH (08:16)
[2023-02-18] MEDS: IPRATROPIUM-ALBUTEROL 3 ML NEB INHALATION SCH ×3 (08:16→16:23)
[2023-02-18] MEDS ORDERED: DARBEPOETIN ALFA 40 MCG/0.4 ML SYRINGE SQ SCH (09:00)
--- NOTE | 2023-02-18 09:12 | P.PN ---
Subjective Progress Note Date: 02/17/23 This is a pleasant 67 years old female with past medical history of CVA/TIA, Fibromyalgia, Hyperlipidemia, Hypertension, Memory Impairment, Osteoarthritis ,chronic neck and back pain, ddd, ARTHRITIS, USES CANE NEEDED FOR FIBROMYALGIA, s/p cervical fusion,, Anxiety, Depression, Panic Disorder, Curre ntly every day smoker patient was just discharged yesterday from the hospital after prolonged hospital stay For multiple medical issues. She was very weak and physical therapy recommended subacute rehab, patient and declined to rehab and they were adamant to go home with her . They've and she threatened to leave AMA if she is not going to be discharged home. Once she went home she could not get into the porch and required 2 people to help her up into the chair and was she got there she collapsed and passed out for a few seconds, and then she had to come back to the hospital Patient presents because of generalized weakness and drowsiness and inability to get up. Patient also was confused. also patient was on Klonopin 1 mg twice a day to help her sleep. On admission she has multiple medical problems and many organs were inspected and she had a prolonged course about 18 days of hospitalization. She has evidence of significantly elevated liver enzymes and significant tr ansaminitis thought secondary to acute pancreatitis. Also she has evidence of hepatic encephalopathy, metabolic/toxic encephalopathy, intra-abdominal infection and sepsis also suspected with acute heart failure on his chronic atrial fibrillation on blood thinner Eliquis (patient has history of CVA/TIA). Also she has evidence of severely dilated right ventricle and right atrium with moderate pulmonary hypertension. She was treated in the intensive care unit in the first half of her hospitalization where she was treated with BiPAP and close monitoring and after stabilization she was transferred to the general medical floor. She has been seen by multiple consultants including pulmonary/critical care team, manager of quality, GI specialist. She was treated with antibiotics Zosyn, then with oral vancomycin and Diflucan, IV Solu-Medrol, IV Lasix, IV Protonix and then resumed her blood thinner. Her Klonopin was discontinued. CT of the abdomen and pelvis without contrast showing: Masslike heterogeneity throughout the pancreatic head of undetermined significance that requires a contrast enhanced study for further evaluation. Because of this GI consult was obtained and I discussed the case with Dr. Delgadillo patient today was still eager to go home and she agrees to follow up with Dr. Delgadillo in 2 weeks for possible further imaging. However patient remains asymptomatic lack no loss of weight and no anorexia suspicious of malignancy however still patient needs to be very examined as an outpatient, risks are explained extensively to the patient and at bedside including but not limited to the risk of cancer of the pancreas and they verbalized understanding and acceptance. This Patient went home and she was very weak and come back to the hospital Currently she is lying in bed mildly tachypneic with respiratory difficulty, her chest x-ray showing similar findings with severely enlarged heart, mainly on the right side of the heart(cardiology for planning for right-sided cardiac cath as an outpatient). Also her heart rate was elevated this range of 120-140. She is kept on her metoprolol 175 mg twice a day Cardizem 60 mg every 8 hours and amiodarone 200 mg. Also she is on Eliquis for her history of CVA. cardiology team were consulted She denies chest pain. No abdominal pain or diarrhea. No urinary complaints. No headache dizziness weakness or numbness. She has mild leukocytosis of 14.7, hemoglobin 8.7, platelet normal, INR is unremarkable. Creatinine at baseline 1.3. Rest of the BMP is unremarkable, liver enzymes mildly elevated but bilirubin is normal. EKG showed A. fib with RVR at 123 02/17/2023 Patient is seen in follow-up today continues with weakness with case management following awaiting insurance authorization. Patient also being followed by card iology and patient has chronic persistent atrial fibrillation maintained on anticoagulation along with rate control medications including amiodarone. Patient to follow-up with cardiology outpatient per their recommendations. Patient is reporting some back pain and reports some relief with lidocaine. We'll continue lidocaine patches area patient is afebrile denies chest pain or worsening shortness of breath. Patient tolerating diet all reports not much of an appetite. Patient reports her diarrhea is currently resolved at this moment. Review of systems: Constitutional: No reports of fatigue, fever, or chills Cardiovascular: No reports of chest pain or palpitations Respiratory: No reports of shortness of breath or cough GI: No reports of nausea, vomiting, reports diarrhea is improved : No reports of dysuria or retention Neurovascular: reports of generalized weakness and lower back pain All medications have been reviewed Physical exam: GENERAL: The patient is alert and oriented x3, not in any acute distress. Obese. Generally weak HEENT: Pupils are round and equally reacting to light. EOMI. No scleral icterus. No conjunctival pallor. Normocephalic, atraumatic. No pharyngeal erythema. No thyromegaly. CARDIOVASCULAR: S1 and S2 present. No murmurs, rubs, or gallops. PULMONARY: Chest is clear to auscultation, no wheezing , no crackles. Mildly tachypneic ABDOMEN: Soft, nontender, nondistended, normoactive bowel sounds. No palpable organomegaly. MUSCULOSKELETAL: No joint swelling or deformity. EXTREMITIES: No cyanosis, clubbing, or pedal edema. NEUROLOGICAL: Gross neurological examination did not reveal any focal deficits. Diffusely weak SKIN: No rashes. no petechiae. Assessment: A. fib with RVR, persistent Severe generalized weakness with gait dysfunction Masslike heterogeneity of the pancreatic head, she needs outpatient follow-up with Dr. Delgadillo in 2 weeks after discharge for possible further imaging COPD with no exacerbation Chronic hypoxemic hypercapnic respiratory failure, improved Acute respiratory acidosis combined with metabolic acidosis, improved Metabolic/toxic encephalopathy, improving Acute pancreatitis. Improved Acute renal failure with hyperkalemia, present on admission . Improved congestive heart failure with echo shows severely dilated right ventricle and right atrium, not in exacerbation transaminitis Anemia, Chronic Possible colitis with ileus, Improved Moderate pulmonary hypertension Chronic atrial fibrillation Hypochromic, microcytic anemia History of CVA/TIA Hypertension Hyperlipidemia History of memory impairment History of osteo-arthritis Chronic neck and back pain status post cervical fusion surgery. Anxiety depression and panic disorder, not in active tissue Plan: Continue with metoprolol, Cardizem and amiodarone and cardiology recommending outpatient follow-up. Patient is continued on anticoagulation along with amiodarone Physical therapy has evaluated the patient recommending rehab and patient is now agreeable as she did attempt to go home when recently discharged 2 days ago and was unable to ambulate and get up into her home. Social work following and has admitted for insurance authorization. Patient was independent and ambulatory prior to these last 2 prolonged hospitalizations. Patient will benefit from continued physical therapy at [facility] she'll need follow-up outpatient with Dr. Delgadillo from for possible pancreatic mass Patient is awaiting insurance authorization to go to [facility]. Possible discharge in 24 hours if authorization is obtained The impression and plan of care has been dictated by Giselle Rapp Nurse Pract itioner as directed. Dr. Taisha MD I have performed a history and examination and MDM of this patient, discussed the same with the dictator, and agree with the dictator's assessment and plan as written ,documented as a scribe. Based on total visit time, I have performed more than 50% of the visit. Objective - Vital Signs Vital signs: Vital Signs Temp 97.8 F 02/17/23 07:15 Pulse 125 H 02/17/23 07:15 Resp 18 02/17/23 07:15 BP 140/90 02/17/23 02:00 Pulse Ox 95 02/17/23 07:15 FiO2 Intake & Output 02/16/23 02/17/23 02/17/23 18:59 06:59 18:59 Intake Total 600 Output Total 400 200 Balance -400 600 -200 Intake: IV 10 0.9 10 Oral 590 Output: Urine 400 200 Other: Voiding Method Bedside Commode # Voids 1 3 # Bowel Movements 1 - Labs CBC & Chem 7: 02/18/23 06:32 02/18/23 06:32
[2023-02-18] MEDS ORDERED: LIDOCAINE 5% PATCH TOPICAL SCH (11:45)
--- NOTE | 2023-02-18 15:00 | P.DS ---
Providers Date of admission: 02/15/23 18:34 Expected date of discharge: 02/18/23 Attending physician: Radha Barahona Consults: 02/16/23 10:40 Consult Physician Urgent Consulting Provider: Myriam Gregorio Consult Reason/Comments: afib and rvr Do you want consulting provider notified?: Yes Primary care physician: Karon Guerrero [facility] Course: Final diagnosis A. fib with RVR, persistent Severe generalized weakness with gait dysfunction Masslike heterogeneity of the pancreatic head, she needs outpatient follow-up with Dr. Delgadillo in 2 weeks after discharge for possible further imaging COPD with no exacerbation Chronic hypoxemic hypercapnic respiratory failure, improved Acute respiratory acidosis combined with metabolic acidosis, improved Metabolic/toxic encephalopathy, improving Acute pancreatitis. Improved Acute renal failure with hyperkalemia, present on admission . Improved congestive heart failure with echo shows severely dilated right ventricle and right atrium, not in exacerbation transaminitis Anemia, Chronic Possible colitis with ileus, Improved Moderate pulmonary hypertension Chronic atrial fibrillation Hypochromic, microcytic anemia History of CVA/TIA Hypertension Hyperlipidemia History of memory impairment History of osteo-arthritis Chronic neck and back pain status post cervical fusion surgery. Anxiety depression and panic disorder, not in active tissue Discharge disposition Patient is being discharged in a stable condition with guarded prognosis to [facility] . Patient will follow-up with Dr. Guerrero in the outpatient setting upon discharge. Patient is to follow-up with nephrology, GI, cardiology outpatient as scheduled. Repeat BMP in 2-3 days. Total time taken is greater than 35 minutes. Hospital course This is a 67-year-old female who was recently admitted with generalized weakness and had undergone prolonged hospitalization with significant weakness. Patient was rehospitalized to have PT/OT therapy evaluate the patient. Patient was evaluated and recommending rehab. Patient was awaiting insurance authorization which has been obtained today and patient will be going to [facility]. Please refer to other documentation for further HPI. Patient will need outpatient follow-up with nephrology, GI, cardiology in the outpatient setting. Currently no reports of chest pain, shortness of breath, or palpitations. Patient is afebrile. No reports of nausea or vomiting and patient is tolerating diet. Patient will be going to [facility] today. Physical exam: Gen: This is a 67-year-old female is awake, alert and oriented 3, well- developed, well-nourished, obese HEENT: Head is atraumatic, normocephalic. Pupils equal, round. Sclerae is anicteric. NECK: Supple. No JVD. No lymphadenopathy. No thyromegaly. LUNGS: Clear to auscultation. No wheezes or rhonchi. No intercostal retractions. HEART: S1, S2 are muffled, irregular ABDOMEN: Soft. Obese. Bowel sounds are present. No masses. No tenderness. EXTREMITIES: No pedal edema. No calf tenderness. NEUROLOGICAL: Patient is awake, alert and oriented x3. Cranial nerves 2 through 12 are grossly intact. Diffusely weak Please refer to medication reconciliation sheet for a list of medications. The impression and plan of care has been dictated by Giselle Rapp, Nurse Practitioner as directed. Dr. Taisha MD I have performed a history and examination and MDM of this patient, discussed the same with the dictator, and agree with the dictator's assessment and plan as written ,documented as a scribe. Based on total visit time, I have performed more than 50% of the visit. Patient Condition at Discharge: Stable Plan - Discharge Summary New Discharge Prescriptions: New Loperamide [Imodium] 2 mg PO QID PRN cap PRN Reason: Diarrhea Lidocaine 5% Patch [Lidoderm 5% Patch] 2 patch TOPICAL DAILY patch Acetaminophen-Codeine 300-30mg [Tylenol w/codeine #3] 1 each PO Q6HR PRN #4 tab PRN Reason: Pain Continue DULoxetine HCL [Cymbalta] 120 mg PO DAILY Famotidine [Pepcid] 20 mg PO BID Darbepoetin Jignesh [Aranesp] 40 mcg SQ Q7D each Loratadine [Claritin] 5 mg PO DAILY tab Sodium Chloride 0.65% Nasal [Deep Sea (Saline)] 2 spray NASAL QID PRN ml PRN Reason: Dry Nasal Passages Acetaminophen Tab [Tylenol] 650 mg PO Q4HR PRN tab PRN Reason: Mild Pain Or Fever > 100.5 Diltiazem Oral [Cardizem*] 60 mg PO TID #90 tab Amiodarone [Cordarone] 200 mg PO DAILY #30 tab Apixaban [Eliquis] 2.5 mg PO BID #60 tab Dapagliflozin Propanediol [Farxiga] 10 mg PO DAILY #30 tab Albuterol Inhaler [Ventolin Hfa Inhaler] 2 puff INHALATION QID #8 gm Metoprolol Succinate (ER) [Toprol XL] 100 mg PO BID #60 tab Metoprolol Succinate (ER) [Toprol XL] 75 mg PO BID #180 tab Ipratropium-Albuterol Nebulize [Duoneb 0.5 mg-3 mg/3 ml Soln] 3 ml INHALATION RT-QID each Ipratropium-Albuterol Nebulize [Duoneb 0.5 mg-3 mg/3 ml Soln] 3 ml INHALATION RT-Q2H PRN each PRN Reason: Shortness Of Breath Or Wheezing Budesonide-Formot 160-4.5 Mcg [Symbicort 160-4.5 Mcg Inhaler] 2 puff INHALATION RT-BID each Spironolactone [Aldactone] 25 mg PO DAILY #30 tablet Furosemide [Lasix] 40 mg PO BID@0900,1600 #60 tab predniSONE 10 mg PO DAILY 5 Days #5 tab Pantoprazole [Protonix] 40 mg PO BID 30 Days #60 tab Discontinued Lidocaine 5% Patch [Lidoderm 5% Patch] 1 patch TOPICAL DAILY 5 Days #5 patch Discharge Medication List DULoxetine HCL [Cymbalta] 120 mg PO DAILY 01/15/15 [History] Famotidine [Pepcid] 20 mg PO BID 01/28/23 [History] Acetaminophen Tab [Tylenol] 650 mg PO Q4HR PRN tab 02/10/23 [Rx] Budesonide-Formot 160-4.5 Mcg [Symbicort 160-4.5 Mcg Inhaler] 2 puff INHALATION RT-BID each 02/10/23 [Rx] Darbepoetin Jignesh [Aranesp] 40 mcg SQ Q7D each 02/10/23 [Rx] Ipratropium-Albuterol Nebulize [Duoneb 0.5 mg-3 mg/3 ml Soln] 3 ml INHALATION RT-Q2H PRN each 02/10/23 [Rx] Ipratropium-Albuterol Nebulize [Duoneb 0.5 mg-3 mg/3 ml Soln] 3 ml INHALATION RT-QID each 02/10/23 [Rx] Loratadine [Claritin] 5 mg PO DAILY tab 02/10/23 [Rx] Sodium Chloride 0.65% Nasal [Deep Sea (Saline)] 2 spray NASAL QID PRN ml 02/10/23 [Rx] Albuterol Inhaler [Ventolin Hfa Inhaler] 2 puff INHALATION QID #8 gm 02/15/23 [Rx] Amiodarone [Cordarone] 200 mg PO DAILY #30 tab 02/15/23 [Rx] Apixaban [Eliquis] 2.5 mg PO BID #60 tab 02/15/23 [Rx] Dapagliflozin Propanediol [Farxiga] 10 mg PO DAILY #30 tab 02/15/23 [Rx] Diltiazem Oral [Cardizem*] 60 mg PO TID #90 tab 02/15/23 [Rx] Furosemide [Lasix] 40 mg PO BID@0900,1600 #60 tab 02/15/23 [Rx] Metoprolol Succinate (ER) [Toprol XL] 75 mg PO BID #180 tab 02/15/23 [Rx] Metoprolol Succinate (ER) [Toprol XL] 100 mg PO BID #60 tab 02/15/23 [Rx] Pantoprazole [Protonix] 40 mg PO BID 30 Days #60 tab 02/15/23 [Rx] Spironolactone [Aldactone] 25 mg PO DAILY #30 tablet 02/15/23 [Rx] predniSONE 10 mg PO DAILY 5 Days #5 tab 02/15/23 [Rx] Acetaminophen-Codeine 300-30mg [Tylenol w/codeine #3] 1 each PO Q6HR PRN #4 tab 02/18/23 [Rx] Lidocaine 5% Patch [Lidoderm 5% Patch] 2 patch TOPICAL DAILY patch 02/18/23 [Rx] Loperamide [Imodium] 2 mg PO QID PRN cap 02/18/23 [Rx] Follow up Appointment(s)/Referral(s): [facility] [Provider Group] - 2 Weeks (Please call office for follow up appointment.) Heidi Delgadillo MD [STAFF PHYSICIAN] - 03/08/23 4:15 pm Karon Guerrero DO [Primary Care Provider] - 1-2 days (Please call to make follow up appointments.) Activity/Diet/Wound Care/Special Instructions: Patient is going to [facility] on the [address] Activity as tolerated Patient needs follow-up with primary care provider on discharge Follow-up with cardiology in 1-2 weeks Follow-up with GI outpatient in the next 2 weeks Follow-up nephrology outpatient Recommend repeat BMP in 2-3 days Discharge Disposition: TRANSFER TO SNF/ECF
[2023-02-18 15:22] VITALS: BMI 37.8
== END 2023-02-18 17:00 ==
LOC: EC 17:05 → 5NMEDONC 18:34
PROVIDERS: ADMIT Hospitalist; ATTEND Hospitalist
DX: I48.19 Other persistent atrial fibrillation (principal); R53.1 Weakness; R26.9 Unspecified abnormalities of gait and mobility; M79.7 Fibromyalgia; E78.5 Hyperlipidemia, unspecified; I11.0 Hypertensive heart disease with heart failure; I50.32 Chronic diastolic (congestive) heart failure; G89.29 Other chronic pain; M54.2 Cervicalgia; M54.9 Dorsalgia, unspecified; F32.A Depression, unspecified; F41.0 Panic disorder [episodic paroxysmal anxiety]; J44.9 Chronic obstructive pulmonary disease, unspecified; J96.22 Acute and chronic respiratory failure with hypercapnia; J96.21 Acute and chronic respiratory failure with hypoxia; G92.8 Other toxic encephalopathy; K85.90 Acute pancreatitis without necrosis or infection, unspecified; E87.5 Hyperkalemia; N17.9 Acute kidney failure, unspecified; R74.01 Elevation of levels of liver transaminase levels; D50.9 Iron deficiency anemia, unspecified; I27.20 Pulmonary hypertension, unspecified; Z86.73 Personal history of transient ischemic attack (TIA), and cerebral infarction without residual deficits; Z87.891 Personal history of nicotine dependence; Z79.01 Long term (current) use of anticoagulants; Z79.51 Long term (current) use of inhaled steroids; Z79.84 Long term (current) use of oral hypoglycemic drugs; Z79.899 Other long term (current) drug therapy
CPT/HCPCS: 96372; 96374; 99285; 36415; 94760; 93005; 97162; 97166; 80053 ×2; 83735 ×2; 84100; 85025 ×2; 85610; 85730; 71046; G0378 ×5; J2270; J7512 ×3; J0881

== ENCOUNTER 2023-02-22 08:16 | Emergency (ER) | payer MEDICARE, OTHER ==
[2023-02-22 08:25] LABS: Glucose,Whole Blood 118 mg/dL (70-110)
[2023-02-22 08:36] VITALS: TEMP 97.6
--- NOTE | 2023-02-22 08:39 | ED ---
General Adult HPI - General Chief complaint: Altered Mental Status Stated complaint: hypertention Time Seen by Provider: 02/22/23 08:18 Source: patient, EMS, RN notes reviewed, old records reviewed Mode of arrival: EMS Limitations: no limitations - History of Present Illness Initial comments: 67-year-old female who presents emergency department for confusion. The patient had been discharged from this hospital 5 days prior to [facility]. This morning the patient had apparently been confused and they state that she was non- completely responsive. The patient states she was mad at the staff because they did not move her quickly from her wheelchair back into her bed. Patient denies headache. Denies chest pain. Denies abdominal pain. She is alert and oriented 4 without complaint. - Related Data Home Medications Medication Instructions Recorded Confirmed DULoxetine HCL [Cymbalta] 120 mg PO DAILY 01/15/15 02/15/23 Famotidine [Pepcid] 20 mg PO BID 01/28/23 02/15/23 Previous Rx's Medication Instructions Recorded Acetaminophen Tab [Tylenol] 650 mg PO Q4HR PRN tab 02/10/23 Budesonide-Formot 160-4.5 Mcg 2 puff INHALATION RT-BID each 02/10/23 [Symbicort 160-4.5 Mcg Inhaler] Darbepoetin Jignesh [Aranesp] 40 mcg SQ Q7D each 02/10/23 Ipratropium-Albuterol Nebulize 3 ml INHALATION RT-Q2H PRN each 02/10/23 [Duoneb 0.5 mg-3 mg/3 ml Soln] Ipratropium-Albuterol Nebulize 3 ml INHALATION RT-QID each 02/10/23 [Duoneb 0.5 mg-3 mg/3 ml Soln] Loratadine [Claritin] 5 mg PO DAILY tab 02/10/23 Sodium Chloride 0.65% Nasal [Deep 2 spray NASAL QID PRN ml 02/10/23 Sea (Saline)] Albuterol Inhaler [Ventolin Hfa 2 puff INHALATION QID #8 gm 02/15/23 Inhaler] Amiodarone [Cordarone] 200 mg PO DAILY #30 tab 02/15/23 Apixaban [Eliquis] 2.5 mg PO BID #60 tab 02/15/23 Dapagliflozin Propanediol [Farxiga] 10 mg PO DAILY #30 tab 02/15/23 Diltiazem Oral [Cardizem*] 60 mg PO TID #90 tab 02/15/23 Furosemide [Lasix] 40 mg PO BID@0900,1600 #60 tab 02/15/23 Metoprolol Succinate (ER) [Toprol 75 mg PO BID #180 tab 02/15/23 XL] Metoprolol Succinate (ER) [Toprol 100 mg PO BID #60 tab 02/15/23 XL] Pantoprazole [Protonix] 40 mg PO BID 30 Days #60 tab 02/15/23 Spironolactone [Aldactone] 25 mg PO DAILY #30 tablet 02/15/23 predniSONE 10 mg PO DAILY 5 Days #5 tab 02/15/23 Acetaminophen-Codeine 300-30mg 1 each PO Q6HR PRN #4 tab 02/18/23 [Tylenol w/codeine #3] Lidocaine 5% Patch [Lidoderm 5% 2 patch TOPICAL DAILY patch 02/18/23 Patch] Loperamide [Imodium] 2 mg PO QID PRN cap 02/18/23 Allergies Allergy/AdvReac Type Severity Reaction Status Date / Time No Known Allergies Allergy Verified 02/15/23 18:54 Review of Systems ROS Statement: Those systems with pertinent positive or pertinent negative responses have been documented in the HPI. ROS Other: All systems not noted in ROS Statement are negative. Past Medical History Past Medical History: CVA/TIA, Fibromyalgia, Hyperlipidemia, Hypertension, Memory Impairment, Osteoarthritis (OA) Additional Past Medical History / Comment(s): chronic neck and back pain, ddd, ARTHRITIS, USES CANE NEEDED FOR FIBROMYALGIA History of Any Multi-Drug Resistant Organisms: None Reported Past Surgical History: Hernia Repair, Hysterectomy Additional Past Surgical History / Comment(s): cervical fusion, Past Anesthesia/Blood Transfusion Reactions: No Reported Reaction Past Psychological History: Anxiety, Depression, Panic Disorder Smoking Status: Former smoker Past Alcohol Use History: None Reported Past Drug Use History: None Reported - Past Family History Mother Family Medical History: Cancer General Exam Limitations: no limitations General appearance: alert, in no apparent distress Head exam: Present: atraumatic, normocephalic Eye exam: Present: normal appearance, PERRL ENT exam: Present: normal exam Neck exam: Present: normal inspection Respiratory exam: Present: decreased breath sounds. Absent: respiratory distress, wheezes Cardiovascular Exam: Present: regular rate, irregular rhythm GI/Abdominal exam: Present: soft. Absent: distended, tenderness Extremities exam: Present: normal inspection Neurological exam: Present: alert, oriented X3 Skin exam: Present: warm, dry, intact Course Vital Signs 02/22/23 02/22/23 02/22/23 08:20 08:21 08:30 Temperature 97.6 F Pulse Rate 113 H 110 H Respiratory 18 20 Rate Blood Pressure 128/70 128/70 111/74 O2 Sat by Pulse 100 100 100 Oximetry 02/22/23 09:00 Temperature Pulse Rate 105 H Respiratory 20 Rate Blood Pressure 120/72 O2 Sat by Pulse 100 Oximetry - Reevaluation(s) Reevaluation #1: 02/22/23 09:31 Patient observed in the emergency department for 90 minutes. She remains alert and oriented. Her is at bedside who agrees. Her blood pressure stable. She is stable for discharge back to skilled nursing. Medical Decision Making - Medical Decision Making Was pt. sent in by a medical professional or institution (, PA, DORMITORY MAID, urgent care, hospital, or skilled nursing...) When possible be specific @ -[Sent from skilled nursing Did you speak to anyone other than the patient for history (EMS, parent, family, police, friend...)? What history was obtained from this source @ -No Did you review nursing and triage notes (agree or disagree)? Why? @ -I reviewed and agree with nursing and triage notes Were old charts reviewed (outside hosp., previous admission, EMS record, old EKG, old radiological studies, urgent care reports/EKG's, skilled nursing records)? Report findings @ -No old charts were reviewed Differential Diagnosis (chest pain, altered mental status, abdominal pain women, abdominal pain men, vaginal bleeding, weakness, fever, dyspnea, syncope, headache, dizziness, GI bleed, back pain, seizure, CVA, palpatations, mental health, musculoskeletal)? @ -Differential Altered Mental Status: Hypoglycemia, DKA, hypercapnia, ETOH, overdose, CO poisoning, trauma, myxedema coma, HTN encephalopathy, infection, encephalitis, psychosis, intercranial hemorrhage, hepatic encephalopathy, meningitis, CVA, this is not meant to be an all-inclusive list EKG interpreted by me (3pts min.). @ -Atrial fibrillation rate of 101, QRS duration 121, QTC 43, no ST segment elevation. X-rays interpreted by me (1pt min.). @ -None done CT interpreted by me (1pt min.). @ -None done U/S interpreted by me (1pt. min.). @ -None done What testing was considered but not performed or refused? (CT, X-rays, U/S, labs)? Why? @ -None What meds were considered but not given or refused? Why? @ -None Did you discuss the management of the patient with other professionals (professionals i.e. , PA, DORMITORY MAID, lab, RT, psych nurse, social media strategist, donor support technician, teacher, staff weapons officer, case checker)? Give summary @ -No Was smoking cessation discussed for >3mins.? @ -No Was critical care preformed (if so, how long)? @ -No Were there social determinants of health that impacted care today? How? (Homelessness, low income, unemployed, alcoholism, drug addiction, transportation, low edu. Level, literacy, decrease access to med. care, residential, rehab)? @ -No Was there de-escalation of care discussed even if they declined (Discuss DNR or withdrawal of care, Hospice)? DNR status @ -No What co-morbidities impacted this encounter? (DM, HTN, Smoking, COPD, CAD, Cancer, CVA, ARF, Chemo, Hep., AIDS, mental health diagnosis, sleep apnea, morbid obesity)? @ afibrillation, memory impairment Was patient admitted / discharged? Hospital course, mention meds given and route, prescriptions, significant lab abnormalities, going to OR and other pertinent info. @ -67 yo female sent from skilled nursing for confusion. This is completely resolved. The patient is not exactly certain why she was sent. is at bedside states the patient is in her usual state of health. No new complaints. The patient is observed in the emergency department without hypotension without confusion she was alert and oriented. She is stable for discharge back to skilled nursing Undiagnosed new problem with uncertain prognosis? @ -No Drug Therapy requiring intensive monitoring for toxicity (Heparin, Nitro, Insulin, Cardizem)? @ -No Were any procedures done? @ -No Diagnosis/symptom? @ -[Episode of confusion, resolved Acute, or Chronic, or Acute on Chronic? @ -Acute Uncomplicated (without systemic symptoms) or Complicated (systemic symptoms)? @ -default Side effects of treatment? @ -No Exacerbation, Progression, or Severe Exacerbation? @ -No Poses a threat to life or bodily function? How? (Chest pain, [place], [place], pneumonia, PE, COPD, DKA, ARF, appy, cholecystitis, CVA, Diverticulitis, Homicidal, Suicidal, threat to staff... and all critical care pts) @ -No - Lab Data Lab Results 02/22/23 Range/Units 08:19 POC Glucose (mg/dL) 118 H (70-110) mg/dL POC Glu Employment Case Manager ID Neyda Partida Disposition Clinical Impression: Confusion Disposition: HOME SELF-CARE Condition: Fair Instructions (If sedation given, give patient instructions): Altered Mental Status (ED) Is patient prescribed a controlled substance at d/c from ED?: No Referrals: Karon Guerrero DO [Primary Care Provider] - 1-2 days Time of Disposition: 09:33
[2023-02-22] MEDS ORDERED: Acetaminophen-Codeine 300-30mg TAB PO STA (08:43)
[2023-02-22] MEDS ORDERED: ZINC OXIDE PASTE (Z-GUARD) 1 APPLIC APPLIC TOPICAL STA (09:01)
[2023-02-22 09:24] VITALS: BP 120/72; PULSE 105; RESP 20
== END 2023-02-22 09:56 | disposition home or self-care (01) ==
LOC: EC 08:16
DX: R41.0 Disorientation, unspecified (principal); I48.91 Unspecified atrial fibrillation; I10 Essential (primary) hypertension; Z86.59 Personal history of other mental and behavioral disorders; Z87.891 Personal history of nicotine dependence
CPT/HCPCS: 36415; 93005; 99285

== ENCOUNTER 2023-06-09 16:19 | Emergency (ER) | payer MEDICARE, OTHER ==
--- NOTE | 2023-06-09 16:52 | ED ---
General Adult HPI - General Chief complaint: Shortness of Breath Stated complaint: AFib Time Seen by Provider: 06/09/23 16:40 Source: patient, EMS, RN notes reviewed, old records reviewed Mode of arrival: EMS - History of Present Illness Initial comments: 67-year-old presenting for evaluation of dyspnea. Patient has been out of her Lasix for the past 2 weeks. She was seen by her home care nurse today and sent in for evaluation of suspected pulmonary edema and CHF. She has bilateral lower extremity edema which she states is worse. No central chest pain. No fever. No significant cough. - Related Data Home Medications Medication Instructions Recorded Confirmed DULoxetine HCL [Cymbalta] 120 mg PO DAILY 01/15/15 02/15/23 Famotidine [Pepcid] 20 mg PO BID 01/28/23 02/15/23 Previous Rx's Medication Instructions Recorded Acetaminophen Tab [Tylenol] 650 mg PO Q4HR PRN tab 02/10/23 Budesonide-Formot 160-4.5 Mcg 2 puff INHALATION RT-BID each 02/10/23 [Symbicort 160-4.5 Mcg Inhaler] Darbepoetin Jignesh [Aranesp] 40 mcg SQ Q7D each 02/10/23 Ipratropium-Albuterol Nebulize 3 ml INHALATION RT-Q2H PRN each 02/10/23 [Duoneb 0.5 mg-3 mg/3 ml Soln] Ipratropium-Albuterol Nebulize 3 ml INHALATION RT-QID each 02/10/23 [Duoneb 0.5 mg-3 mg/3 ml Soln] Loratadine [Claritin] 5 mg PO DAILY tab 02/10/23 Sodium Chloride 0.65% Nasal [Deep 2 spray NASAL QID PRN ml 02/10/23 Sea (Saline)] Albuterol Inhaler [Ventolin Hfa 2 puff INHALATION QID #8 gm 02/15/23 Inhaler] Amiodarone [Cordarone] 200 mg PO DAILY #30 tab 02/15/23 Apixaban [Eliquis] 2.5 mg PO BID #60 tab 02/15/23 Dapagliflozin Propanediol [Farxiga] 10 mg PO DAILY #30 tab 02/15/23 Diltiazem Oral [Cardizem*] 60 mg PO TID #90 tab 02/15/23 Furosemide [Lasix] 40 mg PO BID@0900,1600 #60 tab 02/15/23 Metoprolol Succinate (ER) [Toprol 75 mg PO BID #180 tab 02/15/23 XL] Metoprolol Succinate (ER) [Toprol 100 mg PO BID #60 tab 02/15/23 XL] Pantoprazole [Protonix] 40 mg PO BID 30 Days #60 tab 02/15/23 Spironolactone [Aldactone] 25 mg PO DAILY #30 tablet 02/15/23 predniSONE 10 mg PO DAILY 5 Days #5 tab 02/15/23 Acetaminophen-Codeine 300-30mg 1 each PO Q6HR PRN #4 tab 02/18/23 [Tylenol w/codeine #3] Lidocaine 5% Patch [Lidoderm 5% 2 patch TOPICAL DAILY patch 02/18/23 Patch] Loperamide [Imodium] 2 mg PO QID PRN cap 02/18/23 Allergies Allergy/AdvReac Type Severity Reaction Status Date / Time No Known Allergies Allergy Verified 06/09/23 16:51 Review of Systems ROS Statement: Those systems with pertinent positive or pertinent negative responses have been documented in the HPI. ROS Other: All systems not noted in ROS Statement are negative. Past Medical History Past Medical History: CVA/TIA, Fibromyalgia, Hyperlipidemia, Hypertension, Memory Impairment, Osteoarthritis (OA) Additional Past Medical History / Comment(s): chronic neck and back pain, ddd, ARTHRITIS, USES CANE NEEDED FOR FIBROMYALGIA History of Any Multi-Drug Resistant Organisms: None Reported Past Surgical History: Hernia Repair, Hysterectomy Additional Past Surgical History / Comment(s): cervical fusion, Past Anesthesia/Blood Transfusion Reactions: No Reported Reaction Past Psychological History: Anxiety, Depression, Panic Disorder Smoking Status: Former smoker Past Alcohol Use History: None Reported Past Drug Use History: None Reported - Past Family History Mother Family Medical History: Cancer General Exam General appearance: alert, in no apparent distress Head exam: Present: atraumatic, normocephalic Eye exam: Present: normal appearance, PERRL ENT exam: Present: normal exam Neck exam: Present: normal inspection. Absent: tenderness, meningismus Respiratory exam: Present: rales, decreased breath sounds. Absent: respiratory distress Cardiovascular Exam: Present: tachycardia, irregular rhythm GI/Abdominal exam: Present: soft. Absent: distended, tenderness Extremities exam: Present: pedal edema Neurological exam: Present: alert, oriented X3 Psychiatric exam: Present: normal affect, normal mood Course Vital Signs 06/09/23 06/09/23 16:35 16:57 Pulse Rate 101 H Respiratory 18 20 Rate Blood Pressure 145/104 O2 Sat by Pulse 98 Oximetry Medical Decision Making - Medical Decision Making Was pt. sent in by a medical professional or institution (, [facility], BEHAVIOR CLINICIAN, urgent care, hospital, or prison...) When possible be specific @ -No Did you speak to anyone other than the patient for history (EMS, parent, family, police, friend...)? What history was obtained from this source @ -No Did you review nursing and triage notes (agree or disagree)? Why? @ -I reviewed and agree with nursing and triage notes Were old charts reviewed (outside hosp., previous admission, EMS record, old EKG, old radiological studies, urgent care reports/EKG's, prison records)? Report findings @ -No old charts were reviewed Differential Diagnosis (chest pain, altered mental status, abdominal pain women, abdominal pain men, vaginal bleeding, weakness, fever, dyspnea, syncope, headache, dizziness, GI bleed, back pain, seizure, CVA, palpatations, mental h ealth, musculoskeletal)? @Differential Dyspnea: Coronary syndrome, arrhythmia, tamponade, asthma, COPD, pulmonary embolism, pneumonia, pneumothorax, pulmonary effusion, anaphylaxis, diabetic ketoacidosis, flailed chest, pulmonary contusion, diaphragmatic rupture, anemia, neuromuscular, this is not meant to be an all-inclusive list. EKG interpreted by me (3pts min.). @Atrial fibrillation with RVR, rate of 101 QRS duration 108, QTc 410, no ST segment elevation, low voltage X-rays interpreted by me (1pt min.). @ -Chest x-ray showing stable cardiomegaly without acute findings. CT interpreted by me (1pt min.). @ -None done U/S interpreted by me (1pt. min.). @ -None done What testing was considered but not performed or refused? (CT, X-rays, U/S, labs)? Why? @ -None What meds were considered but not given or refused? Why? @ -None Did you discuss the management of the patient with other professionals (professionals i.e. , PA, BEHAVIOR CLINICIAN, lab, RT, psych nurse, community mental health social worker, metal precision machine assembler, teacher, hazard mitigation officer, hospice case manager)? Give summary @ -No Was smoking cessation discussed for >3mins.? @ -No Was critical care preformed (if so, how long)? @ -No Were there social determinants of health that impacted care today? How? (Homelessness, low income, unemployed, alcoholism, drug addiction, tra nsportation, low edu. Level, literacy, decrease access to med. care, shelter, rehab)? @ -No Was there de-escalation of care discussed even if they declined (Discuss DNR or withdrawal of care, Hospice)? DNR status @ -No What co-morbidities impacted this encounter? (DM, HTN, Smoking, COPD, CAD, Cancer, CVA, ARF, Chemo, Hep., AIDS, mental health diagnosis, sleep apnea, morbid obesity)? @Atrial fibrillation, CHF Was patient admitted / discharged? Hospital course, mention meds given and route, prescriptions, significant lab abnormalities, going to OR and other pertinent info. @ -67-year-old female who is oxygen dependent at 2 L presenting with dyspnea and lower extremity swelling. Patient has been out of her medications including her Lasix for the past 2 weeks. She does appear fluid overloaded. Chest x-ray shows cardiomegaly without martha pulmonary edema. BNP is not significantly elevated. Troponin is negative. Other laboratory testing is unremarkable. The patient states she can have her medication filled tomorrow. She is eager for discharge and is given 1 dose of Lasix in the emergency department. She will follow closely with her primary care provider and take medications as p rescribed. Undiagnosed new problem with uncertain prognosis? @ -No Drug Therapy requiring intensive monitoring for toxicity (Heparin, Nitro, Insulin, Cardizem)? @ -No Were any procedures done? @ -No Diagnosis/symptom? @ -Peripheral edema, CHF Acute, or Chronic, or Acute on Chronic? @ -[Acute on chronic Uncomplicated (without systemic symptoms) or Complicated (systemic symptoms)? @ -Default Side effects of treatment? @ -No Exacerbation, Progression, or Severe Exacerbation? @ -No Poses a threat to life or bodily function? How? (Chest pain, [place], [place], pneumonia, PE, COPD, DKA, ARF, appy, cholecystitis, CVA, Diverticulitis, Homicidal, Suicidal, threat to staff... and all critical care pts) @ -[Moderate risk - Lab Data Result diagrams: 06/09/23 18:00 06/09/23 18:00 Lab Results 06/09/23 06/09/23 06/09/23 Range/Units 18:00 18:00 18:00 WBC 6.6 (3.8-10.6) k/uL RBC 4.43 (3.80-5.40) m/uL Hgb 13.8 (11.4-16.0) gm/dL Hct 43.1 (34.0-46.0) % MCV 97.2 (80.0-100.0) fL MCH 31.2 (25.0-35.0) pg MCHC 32.1 (31.0-37.0) g/dL RDW 14.3 (11.5-15.5) % Plt Count 251 (150-450) k/uL MPV 9.9 Neutrophils % 62 % Lymphocytes % 25 % Monocytes % 7 % Eosinophils % 4 % Basophils % 0 % Neutrophils # 4.0 (1.3-7.7) k/uL Lymphocytes # 1.6 (1.0-4.8) k/uL Monocytes # 0.5 (0-1.0) k/uL Eosinophils # 0.2 (0-0.7) k/uL Basophils # 0.0 (0-0.2) k/uL Hypochromasia Slight PT 9.9 L (10.0-12.5) sec INR 0.9 (<1.2) APTT 25.0 (22.0-30.0) sec Sodium 139 (137-145) mmol/L Potassium 5.1 (3.5-5.1) mmol/L Chloride 110 H (98-107) mmol/L Carbon Dioxide 25 (22-30) mmol/L Anion Gap 4 mmol/L BUN 19 H (7-17) mg/dL Creatinine 0.99 (0.52-1.04) mg/dL Est GFR (CKD-EPI)AfAm 69 (>60 ml/min/1.73 sqM) Est GFR (CKD-EPI)NonAf 60 (>60 ml/min/1.73 sqM) Glucose 88 (74-99) mg/dL Calcium 9.6 (8.4-10.2) mg/dL Magnesium 2.1 (1.6-2.3) mg/dL Total Bilirubin 0.5 (0.2-1.3) mg/dL AST 25 (14-36) U/L ALT 16 (4-34) U/L Alkaline Phosphatase 102 (38-126) U/L Troponin I (0.000-0.034) ng/mL NT-Pro-B Natriuret Pep 953 pg/mL Total Protein 6.2 L (6.3-8.2) g/dL Albumin 3.7 (3.5-5.0) g/dL 06/09/23 Range/Units 18:00 WBC (3.8-10.6) k/uL RBC (3.80-5.40) m/uL Hgb (11.4-16.0) gm/dL Hct (34.0-46.0) % MCV (80.0-100.0) fL MCH (25.0-35.0) pg MCHC (31.0-37.0) g/dL RDW (11.5-15.5) % Plt Count (150-450) k/uL MPV Neutrophils % % Lymphocytes % % Monocytes % % Eosinophils % % Basophils % % Neutrophils # (1.3-7.7) k/uL Lymphocytes # (1.0-4.8) k/uL Monocytes # (0-1.0) k/uL Eosinophils # (0-0.7) k/uL Basophils # (0-0.2) k/uL Hypochromasia PT (10.0-12.5) sec INR (<1.2) APTT (22.0-30.0) sec Sodium (137-145) mmol/L Potassium (3.5-5.1) mmol/L Chloride (98-107) mmol/L Carbon Dioxide (22-30) mmol/L Anion Gap mmol/L BUN (7-17) mg/dL Creatinine (0.52-1.04) mg/dL Est GFR (CKD-EPI)AfAm (>60 ml/min/1.73 sqM) Est GFR (CKD-EPI)NonAf (>60 ml/min/1.73 sqM) Glucose (74-99) mg/dL Calcium (8.4-10.2) mg/dL Magnesium (1.6-2.3) mg/dL Total Bilirubin (0.2-1.3) mg/dL AST (14-36) U/L ALT (4-34) U/L Alkaline Phosphatase (38-126) U/L Troponin I <0.012 (0.000-0.034) ng/mL NT-Pro-B Natriuret Pep pg/mL Total Protein (6.3-8.2) g/dL Albumin (3.5-5.0) g/dL Disposition Clinical Impression: Afib, Peripheral edema, CHF (congestive heart failure) Disposition: HOME SELF-CARE Instructions (If sedation given, give patient instructions): Leg Edema (ED), Heart Failure (ER) Additional Instructions: Please take medications as prescribed. Please follow closely with your primary care provider Is patient prescribed a controlled substance at d/c from ED?: No Referrals: Karon Guerrero DO [Primary Care Provider] - 1-2 days Time of Disposition: 19:36
--- NOTE | 2023-06-09 18:36 | XR ---
EXAMINATION TYPE: XR chest 2V DATE OF EXAM: 06/09/2023 6:31 PM CLINICAL INDICATION:Female, 67 years old with history of difficulty breathing; [facility] COMPARISON: Chest radiographs from 02/16/2023. TECHNIQUE: XR chest 2V Frontal and lateral views of the chest. FINDINGS: Lungs/Pleura: There is no evidence of pleural effusion, focal consolidation, or pneumothorax. Pulmonary vascularity: Unremarkable. Heart/mediastinum: Cardiomediastinal silhouette is enlarged and stable. Musculoskeletal: No acute osseous pathology. Other findings: None IMPRESSION: Cardiomegaly. Correlate with BNP for congestive heart failure.
[2023-06-09 18:47] LABS: Basophils % (A) 0 %; Eosinophils # (A) 0.2 k/uL (0-0.7); Eosinophils % (A) 4 %; HCT 43.1 % (34.0-46.0); HGB 13.8 gm/dL (11.4-16.0); Hypochromasia Slight; Lymphocytes # (A) 1.6 k/uL (1.0-4.8); Lymphocytes % (A) 25 %; MCH 31.2 pg (25.0-35.0); MCHC 32.1 g/dL (31.0-37.0); MCV 97.2 fL (80.0-100.0); Mean Platelet Volume 9.9; Monocytes # (A) 0.5 k/uL (0-1.0); Monocytes % (A) 7 %; Neutrophils % (A) 62 %; Platelet Count 251 k/uL (150-450); RBC 4.43 m/uL (3.80-5.40); RDW 14.3 % (11.5-15.5); WBC 6.6 k/uL (3.8-10.6)
[2023-06-09 18:56] LABS: INR 0.9 (<1.2); Prothrombin Time 9.9 sec (10.0-12.5)
[2023-06-09 19:05] LABS: ALT 16 U/L (4-34); AST 25 U/L (14-36); African American GFR (CKD) 69 (>60 ml/min/1.73 sqM); Albumin 3.7 g/dL (3.5-5.0); Alkaline Phosphatase 102 U/L (38-126); Anion Gap 4 mmol/L; Blood Urea Nitrogen 19 mg/dL (7-17); Calcium 9.6 mg/dL (8.4-10.2); Carbon Dioxide 25 mmol/L (22-30); Chloride 110 mmol/L (98-107); Glucose 88 mg/dL (74-99); Magnesium 2.1 mg/dL (1.6-2.3); Non-African American GFR(CKD) 60 (>60 ml/min/1.73 sqM); Potassium 5.1 mmol/L (3.5-5.1); Sodium 139 mmol/L (137-145); Total Bilirubin 0.5 mg/dL (0.2-1.3); Total Protein 6.2 g/dL (6.3-8.2)
[2023-06-09 19:09] LABS: NT-Pro-B-Type Natriuretic Pept 953 pg/mL
[2023-06-09] MEDS: oxyCODONE-APAP 10-325MG 1 EACH TAB PO PRN (19:54)
[2023-06-09] MEDS: FUROSEMIDE 10 MG/ML 4 ML VIAL IV STA (19:54)
[2023-06-09 19:55] VITALS: BP 143/83; PULSE 79; RESP 18
== END 2023-06-09 20:03 | disposition home or self-care (01) ==
LOC: EC 16:19
DX: I48.91 Unspecified atrial fibrillation (principal); I11.0 Hypertensive heart disease with heart failure; I50.9 Heart failure, unspecified; F32.A Depression, unspecified; F41.9 Anxiety disorder, unspecified; Z79.899 Other long term (current) drug therapy; Z87.891 Personal history of nicotine dependence; Z86.73 Personal history of transient ischemic attack (TIA), and cerebral infarction without residual deficits
CPT/HCPCS: 36415; 93005; 83880; 80053; 83735; 84484; 85025; 85610; 85730; 71046; 99285; 96374; J1940

== ENCOUNTER 2023-10-15 13:30 | Inpatient (IN) | payer MEDICARE, OTHER ==
[2023-10-15] MEDS: MORPHINE SULFATE 4 MG/ML SYRINGE IVP STA (14:13)
[2023-10-15 14:24] LABS: Basophils % (A) 0 %; Eosinophils % (A) 0 %; HCT 43.6 % (34.0-46.0); HGB 13.3 gm/dL (11.4-16.0); Lymphocytes # (A) 1.8 k/uL (1.0-4.8); Lymphocytes % (A) 17 %; MCH 30.2 pg (25.0-35.0); MCHC 30.5 g/dL (31.0-37.0); MCV 99.1 fL (80.0-100.0); Monocytes # (A) 0.7 k/uL (0-1.0); Monocytes % (A) 6 %; Neutrophils # (A) 8.1 k/uL (1.3-7.7); Neutrophils % (A) 75 %; Platelet Count 340 k/uL (150-450); RDW 13.6 % (11.5-15.5); WBC 10.8 k/uL (3.8-10.6)
[2023-10-15 14:33] LABS: INR 1.3 (<1.2); Partial Thromboplastin Time 25.8 sec (22.0-30.0); Prothrombin Time 13.6 sec (10.0-12.5)
[2023-10-15 14:38] LABS: ALT 165 U/L (4-34); AST 151 U/L (14-36); African American GFR (CKD) 45 (>60 ml/min/1.73 sqM); Alkaline Phosphatase 101 U/L (38-126); Anion Gap 12 mmol/L; Blood Urea Nitrogen 32 mg/dL (7-17); Calcium 9.5 mg/dL (8.4-10.2); Carbon Dioxide 19 mmol/L (22-30); Chloride 105 mmol/L (98-107); Glucose 125 mg/dL (74-99); Non-African American GFR(CKD) 39 (>60 ml/min/1.73 sqM); Potassium 3.8 mmol/L (3.5-5.1); Sodium 136 mmol/L (137-145); Total Bilirubin 1.4 mg/dL (0.2-1.3); Total Protein 6.5 g/dL (6.3-8.2)
[2023-10-15 14:47] LABS: NT-Pro-B-Type Natriuretic Pept 18200 pg/mL
--- NOTE | 2023-10-15 15:21 | ED ---
SOB HPI - General Chief Complaint: Shortness of Breath Stated Complaint: SOB Time Seen by Provider: 10/15/23 13:40 Source: patient, EMS Mode of arrival: EMS - History of Present Illness Initial Comments: 67-year-old female who presents emergency department reporting shortness of breath. She has a history of COPD and CHF. Patient states she has been taking her diuretics without any missed doses. She has a history of A-fib however it only affected her once when she was hospitalized. She is on eliquis and takes it as directed. For the past 3 days she has had worsening shortness of breath. She has lower extremity edema. She does have oxygen at home however never wears it. States that she has been wearing 2 L as she has required it. She does not do breathing treatments as they make her heart race. She sometimes will use inhalers however they have not been helping. She does admit to some chest discomfort and a headache. No fevers. No other alleviating, precipitating or modifying factors - Related Data Home Medications Medication Instructions Recorded Confirmed DULoxetine HCL [Cymbalta] 120 mg PO DAILY 01/15/15 10/15/23 Apixaban [Eliquis] 2.5 mg PO BID 10/15/23 10/15/23 Previous Rx's Medication Instructions Recorded Furosemide [Lasix] 40 mg PO BID@0900,1600 #60 tab 02/15/23 Spironolactone [Aldactone] 25 mg PO DAILY #30 tablet 02/15/23 Allergies Allergy/AdvReac Type Severity Reaction Status Date / Time No Known Allergies Allergy Verified 10/15/23 14:11 Review of Systems ROS Statement: Those systems with pertinent positive or pertinent negative responses have been documented in the HPI. ROS Other: All systems not noted in ROS Statement are negative. Past Medical History Past Medical History: CVA/TIA, Fibromyalgia, Hyperlipidemia, Hypertension, Memory Impairment, Osteoarthritis (OA) Additional Past Medical History / Comment(s): chronic neck and back pain, ddd, ARTHRITIS, USES CANE NEEDED FOR FIBROMYALGIA History of Any Multi-Drug Resistant Organisms: None Reported Past Surgical History: Hernia Repair, Hysterectomy Additional Past Surgical History / Comment(s): cervical fusion, Past Anesthesia/Blood Transfusion Reactions: No Reported Reaction Past Psychological History: Anxiety, Depression, Panic Disorder Smoking Status: Former smoker Past Alcohol Use History: None Reported Past Drug Use History: None Reported - Past Family History Mother Family Medical History: Cancer General Exam General appearance: alert, in no apparent distress Head exam: Present: atraumatic, normocephalic, normal inspection Eye exam: Present: normal appearance, PERRL, EOMI. Absent: scleral icterus, conjunctival injection, periorbital swelling ENT exam: Present: normal exam, mucous membranes moist Neck exam: Present: normal inspection. Absent: tenderness, meningismus, lymphadenopathy Respiratory exam: Present: accessory muscle use, decreased breath sounds. Ab sent: respiratory distress, wheezes, rales, rhonchi, stridor Cardiovascular Exam: Present: tachycardia, irregular rhythm, normal heart sounds. Absent: systolic murmur, diastolic murmur, rubs, gallop, clicks GI/Abdominal exam: Present: soft, normal bowel sounds. Absent: distended, tenderness, guarding, rebound, rigid Extremities exam: Present: normal inspection, full ROM, normal capillary refill. Absent: tenderness, pedal edema, joint swelling, calf tenderness Back exam: Present: normal inspection Neurological exam: Present: alert, oriented X3, CN II-XII intact Psychiatric exam: Present: normal affect, normal mood Skin exam: Present: warm, dry, intact, normal color. Absent: rash Course Vital Signs 10/15/23 10/15/23 10/15/23 13:36 13:51 14:45 Temperature 97.8 F 97.0 F L Pulse Rate 151 H 165 H 160 H Respiratory 20 18 24 Rate Blood Pressure 123/104 123/104 123/91 O2 Sat by Pulse 99 97 97 Oximetry 10/15/23 10/15/23 10/15/23 15:00 15:23 16:10 Temperature Pulse Rate 149 H 156 H Respiratory 24 24 18 Rate Blood Pressure 123/90 109/61 O2 Sat by Pulse 98 95 Oximetry 10/15/23 10/15/23 10/15/23 17:46 19:00 19:33 Temperature Pulse Rate 151 H 144 H 154 H Respiratory 18 16 Rate Blood Pressure 124/76 104/78 O2 Sat by Pulse 96 Oximetry 10/15/23 10/15/23 19:35 20:00 Temperature 97.0 F L Pulse Rate 146 H Respiratory 24 Rate Blood Pressure 114/81 O2 Sat by Pulse 96 96 Oximetry Medical Decision Making - Medical Decision Making Was pt. sent in by a medical professional or institution (MESERET Oliver, OVERLOCK OPERATOR, urgent care, hospital, or fci...) When possible be specific @ -No Did you speak to anyone other than the patient for history (EMS, parent, family, police, friend...)? What history was obtained from this source @ -No Did you review nursing and triage notes (agree or disagree)? Why? @ -I reviewed and agree with nursing and triage notes Were old charts reviewed (outside hosp., previous admission, EMS record, old EKG, old radiological studies, urgent care reports/EKG's, fci records)? Report findings @ -I reviewed discharge summary from February 18 of last year Differential Diagnosis (chest pain, altered mental status, abdominal pain women, abdominal pain men, vaginal bleeding, weakness, fever, dyspnea, syncope, headache, dizziness, GI bleed, back pain, seizure, CVA, palpatations, mental health, musculoskeletal)? @ -Differential Dyspnea: Coronary syndrome, arrhythmia, tamponade, asthma, COPD, pulmonary embolism, pneumonia, pneumothorax, pulmonary effusion, anaphylaxis, diabetic ketoacidosis, flailed chest, pulmonary contusion, diaphragmatic rupture, anemia, neuro muscular, this is not meant to be an all-inclusive list. EKG interpreted by me (3pts min.). @ -Yes and demonstrates A-fib with a rate of 150. QRS 118. QTc of 408. No acute ST segment elevations or depressions X-rays interpreted by me (1pt min.). @ -Yes and demonstrates COPD changes CT interpreted by me (1pt min.). @ -None done U/S interpreted by me (1pt. min.). @ -None done What testing was considered but not performed or refused? (CT, X-rays, U/S, labs)? Why? @ -None What meds were considered but not given or refused? Why? @ -None Did you discuss the management of the patient with other professionals (professionals i.e. MESERET Oliver, OVERLOCK OPERATOR, lab, RT, psych nurse, medical social worker, inner tube inserter, te acher, articulation officer, case coordinator)? Give summary @ -Spoke with Sheet for admission Was smoking cessation discussed for >3mins.? @ -No Was critical care preformed (if so, how long)? @ -Yes, 40 minutes for management of A-fib with RVR Were there social determinants of health that impacted care today? How? (Homelessness, low income, unemployed, alcoholism, drug addiction, transportation, low edu. Level, literacy, decrease access to med. care, [facility], rehab)? @ -No Was there de-escalation of care discussed even if they declined (Discuss DNR or withdrawal of care, Hospice)? DNR status @ -No What co-morbidities impacted this encounter? (DM, HTN, Smoking, COPD, CAD, Cancer, CVA, ARF, Chemo, Hep., AIDS, mental health diagnosis, sleep apnea, morbid obesity)? @ -COPD, CHF Was patient admitted / discharged? Hospital course, mention meds given and route, prescriptions, significant lab abnormalities, going to OR and other pertinent info. @ -Admitted. Pulm arrival patient placed into room 17. Thorough history and physical exam was performed. Patient on supplemental oxygen. IV is est ablished. Laboratory studies are conducted. Chest x-ray was performed. Patient is anticoagulated at this time and therefore we will continue Eliquis. Patient does not require BiPAP as respiratory effort is controlled on nasal cannula. I did give her Lasix IV due to elevated BNP. Breathing treatments are ordered however patient reports to rapid heart rate with him. She is placed on a Cardizem drip. Patient will be admitted to [facility] Undiagnosed new problem with uncertain prognosis? @ -No Drug Therapy requiring intensive monitoring for toxicity (Heparin, Nitro, Insulin, Cardizem)? @ -Cardizem Were any procedures done? @ -No Diagnosis/symptom? @ -Acute respiratory insufficiency, acute exacerbation of COPD, A-fib with RVR, NSTEMI, elevated Trop Acute, or Chronic, or Acute on Chronic? @ -Acute on chronic Uncomplicated (without systemic symptoms) or Complicated (systemic symptoms)? @ -Complicated Side effects of treatment? @ -No Exacerbation, Progression, or Severe Exacerbation? @ -Yes Poses a threat to life or bodily function? How? (Chest pain, [place], [place], pneumonia, PE, COPD, DKA, ARF, appy, cholecystitis, CVA, Diverticulitis, Homicidal, Suicidal, threat to staff... and all critical care pts) @ -Yes as patient presents for increased work of breathing - Lab Data Result diagrams: 10/17/23 07:00 10/17/23 09:26 Lab Results 10/15/23 10/15/23 10/15/23 Range/Units 14:15 14:15 14:15 WBC 10.8 H (3.8-10.6) k/uL RBC 4.40 (3.80-5.40) m/uL Hgb 13.3 (11.4-16.0) gm/dL Hct 43.6 (34.0-46.0) % MCV 99.1 (80.0-100.0) fL MCH 30.2 (25.0-35.0) pg MCHC 30.5 L (31.0-37.0) g/dL RDW 13.6 (11.5-15.5) % Plt Count 340 (150-450) k/uL MPV 9.0 Neutrophils % 75 % Lymphocytes % 17 % Monocytes % 6 % Eosinophils % 0 % Basophils % 0 % Neutrophils # 8.1 H (1.3-7.7) k/uL Lymphocytes # 1.8 (1.0-4.8) k/uL Monocytes # 0.7 (0-1.0) k/uL Eosinophils # 0.0 (0-0.7) k/uL Basophils # 0.0 (0-0.2) k/uL PT 13.6 H (10.0-12.5) sec INR 1.3 H (<1.2) APTT 25.8 (22.0-30.0) sec Sodium 136 L (137-145) mmol/L Potassium 3.8 (3.5-5.1) mmol/L Chloride 105 (98-107) mmol/L Carbon Dioxide 19 L (22-30) mmol/L Anion Gap 12 mmol/L BUN 32 H (7-17) mg/dL Creatinine 1.40 H (0.52-1.04) mg/dL Est GFR (CKD-EPI)AfAm 45 (>60 ml/min/1.73 sqM) Est GFR (CKD-EPI)NonAf 39 (>60 ml/min/1.73 sqM) Glucose 125 H (74-99) mg/dL Plasma Lactic Acid Lorenzo (0.7-2.0) mmol/L Calcium 9.5 (8.4-10.2) mg/dL Total Bilirubin 1.4 H (0.2-1.3) mg/dL AST 151 H (14-36) U/L ALT 165 H (4-34) U/L Alkaline Phosphatase 101 (38-126) U/L Troponin I (0.000-0.034) ng/mL NT-Pro-B Natriuret Pep 67135 pg/mL Total Protein 6.5 (6.3-8.2) g/dL Albumin 4.0 (3.5-5.0) g/dL 10/15/23 10/15/23 Range/Units 14:15 14:15 WBC (3.8-10.6) k/uL RBC (3.80-5.40) m/uL Hgb (11.4-16.0) gm/dL Hct (34.0-46.0) % MCV (80.0-100.0) fL MCH (25.0-35.0) pg MCHC (31.0-37.0) g/dL RDW (11.5-15.5) % Plt Count (150-450) k/uL MPV Neutrophils % % Lymphocytes % % Monocytes % % Eosinophils % % Basophils % % Neutrophils # (1.3-7.7) k/uL Lymphocytes # (1.0-4.8) k/uL Monocytes # (0-1.0) k/uL Eosinophils # (0-0.7) k/uL Basophils # (0-0.2) k/uL PT (10.0-12.5) sec INR (<1.2) APTT (22.0-30.0) sec Sodium (137-145) mmol/L Potassium (3.5-5.1) mmol/L Chloride (98-107) mmol/L Carbon Dioxide (22-30) mmol/L Anion Gap mmol/L BUN (7-17) mg/dL Creatinine (0.52-1.04) mg/dL Est GFR (CKD-EPI)AfAm (>60 ml/min/1.73 sqM) Est GFR (CKD-EPI)NonAf (>60 ml/min/1.73 sqM) Glucose (74-99) mg/dL Plasma Lactic Acid Lorenzo 1.3 (0.7-2.0) mmol/L Calcium (8.4-10.2) mg/dL Total Bilirubin (0.2-1.3) mg/dL AST (14-36) U/L ALT (4-34) U/L Alkaline Phosphatase (38-126) U/L Troponin I 0.050 H* (0.000-0.034) ng/mL NT-Pro-B Natriuret Pep pg/mL Total Protein (6.3-8.2) g/dL Albumin (3.5-5.0) g/dL Disposition Clinical Impression: Atrial fibrillation with RVR, CHF (congestive heart failure), Elevated troponin, Dyspnea Disposition: ADMITTED IP TO THIS [facility] Condition: Serious Is patient prescribed a controlled substance at d/c from ED?: No Time of Disposition: 15:24 Decision to Admit Reason: Admit from EC Decision Date: 10/15/23 Decision Time: 15:24
--- NOTE | 2023-10-15 15:21 | XR ---
EXAMINATION TYPE: XR chest 2V DATE OF EXAM: 10/15/2023 3:03 PM CLINICAL INDICATION:Female, 67 years old with history of difficulty breathing; [facility] COMPARISON: Chest radiographs from 06/09/2023 TECHNIQUE: XR chest 2V Frontal and lateral views of the chest. FINDINGS: Lungs/Pleura: There is no evidence of pleural effusion, focal consolidation, or pneumothorax. Pulmonary vascularity: Unremarkable. Heart/mediastinum: Cardiomediastinal silhouette is enlarged and stable. Musculoskeletal: No acute osseous pathology. IMPRESSION: 1. No acute cardiopulmonary disease process. 2. COPD changes.
[2023-10-15] MEDS: DILTIAZEM DRIP BOLUS FROM BAG 1 MG SOLN IV ONE (15:33)
[2023-10-15] MEDS: FUROSEMIDE 10 MG/ML 10 ML VIAL IV STA (15:35)
[2023-10-15] MEDS: ACETAMINOPHEN TAB 325 MG TAB PO PRN (16:15)
[2023-10-15] MEDS: IPRATROPIUM-ALBUTEROL 3 ML NEB INHALATION SCH (16:19)
[2023-10-15] MEDS ORDERED: DEXTROSE 50% SYRINGE 50 ML IVP PRN (16:24)
[2023-10-15] MEDS: FUROSEMIDE 10 MG/ML 4 ML VIAL IV SCH (17:37)
[2023-10-15] MEDS: methylPREDNISolone SOD SUCCI 125 MG/2 ML VIAL IV SCH (18:05)
[2023-10-15] MEDS: HYDROmorphone 0.5 MG/0.5 ML SYRINGE IVP STA (19:01)
[2023-10-15] MEDS: INSULIN ASPART (NovoLOG) 100 UNIT/ML VIAL SQ SCH (19:31)
[2023-10-15] MEDS: SYMBICORT 160-4.5 MCG INHALER INHALATION SCH (19:33)
[2023-10-15 21:02] LABS: Glucose,Whole Blood 141 mg/dL (70-110)
[2023-10-15] MEDS: METOPROLOL TARTRATE 25 MG TAB PO SCH (21:06)
[2023-10-15] MEDS: APIXABAN 2.5 MG TABLET PO SCH (21:06)
[2023-10-15] MEDS: DILTIAZEM 125 MG in SODIUM CHLORIDE 0.9% 100 ML IV SCH (22:53)
--- NOTE | 2023-10-16 00:34 | HP ---
HISTORY AND PHYSICAL CHIEF COMPLAINTS: Chest pain, shortness of breath, and atrial fibrillation. 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 Currently, the patient is complaining of shortness of breath, some chest discomfort and associated atrial fibrillation with fast ventricular rate. The patient was admitted for further evaluation and treatment. Chest pain was in the upper part of the chest. The patient is started on Cardizem drip at this time. Creatinine is 1.40. Troponin is found to be 0.050. The 2D echo done last year showed preserved ejection fraction and a chest x-ray which I reviewed personally showed significant cardiomegaly and COPD changes. PAST MEDICAL HISTORY: Reviewed include history of fibromyalgia, hypertension, hyperlipidemia, atrial fibrillation, rest of the history and rest of the chart is also reviewed. HOME MEDICATIONS: Reviewed include Eliquis, dose and rest of medications noted. ALLERGIES: None. FAMILY HISTORY: History of cancer in the family. SOCIAL HISTORY: Smoked 1 pack of cigarettes per day since 14. REVIEW OF SYSTEMS: A 14-point review is negative except as mentioned earlier. PHYSICAL EXAMINATION: VITAL SIGNS: Pulse is 150 and irregular, blood pressure 109/64, respirations 18. HEENT: Conjunctivae normal. NECK: No jugular venous distention. CARDIOVASCULAR: S1, S2 irregular, tachycardic. RESPIRATION: Diminished at the bases, few scattered rhonchi and crackles. ABDOMEN: Soft, nontender. LEGS: Bilateral leg edema. NERVOUS SYSTEM: Nonfocal. SKIN: No ulcer, rash, bleeding. JOINTS: No active deforming arthropathy. LABORATORY DATA: Reviewed. ASSESSMENT: 1. Atrial fibrillation with fast ventricular rate. 2. Shortness of breath, possibly combination of COPD acute exacerbation. 3. Rule out CHF acute exacerbation with bilateral leg edema. 4. Troponin 0.050. Chest pain, possible unstable angina versus acute [id number] elevation myocardial infarction. 5. Hypertension. 6. History of hyperlipidemia. 7. History of CVA, TIA. 8. Anxiety, depression, panic disorder. 9. Multiple complex medical issues. 10.Fibromyalgia. RECOMMENDATIONS AND DISCUSSION: This 67-year-old woman presented with multiple complex medical issues, we will monitor the patient closely. Continue the current management, continue symptomatic treatment. I would recommend continue with Cardizem drip. Eliquis has been initiated and we will continue the home medications Lasix. I would also recommend repeat 2D echo because ejection fraction found to be preserved in the previous one, and bronchodilators will be given and Cardiology, Pulmonology will be consulted. The possibility of cor pulmonale is also a consultation. The patient had bruises in the legs. MMODL / IJN: [id number] /
[2023-10-16 05:32] LABS: Glucose,Whole Blood 145 mg/dL (70-110)
[2023-10-16 05:52] LABS: African American GFR (CKD) 35 (>60 ml/min/1.73 sqM); Anion Gap 14 mmol/L; Blood Urea Nitrogen 41 mg/dL (7-17); Calcium 9.5 mg/dL (8.4-10.2); Carbon Dioxide 17 mmol/L (22-30); Chloride 103 mmol/L (98-107); Glucose 145 mg/dL (74-99); Non-African American GFR(CKD) 30 (>60 ml/min/1.73 sqM); Sodium 134 mmol/L (137-145)
[2023-10-16 06:37] LABS: Basophils % (A) 0 %; Eosinophils % (A) 0 %; HCT 44.3 % (34.0-46.0); HGB 13.4 gm/dL (11.4-16.0); Hypochromasia Slight; Lymphocytes # (A) 0.7 k/uL (1.0-4.8); Lymphocytes % (A) 8 %; MCH 30.6 pg (25.0-35.0); MCHC 30.3 g/dL (31.0-37.0); MCV 100.7 fL (80.0-100.0); Macrocytosis Slight; Mean Platelet Volume 9.4; Monocytes # (A) 0.2 k/uL (0-1.0); Monocytes % (A) 3 %; Neutrophils # (A) 7.7 k/uL (1.3-7.7); Neutrophils % (A) 89 %; Platelet Count 343 k/uL (150-450); RDW 13.6 % (11.5-15.5); WBC 8.6 k/uL (3.8-10.6)
[2023-10-16] MEDS: DULoxetine HCL 60 MG CAPSULE.DR PO SCH (09:21)
[2023-10-16] MEDS: SPIRONOLACTONE 25 MG TAB PO SCH (09:21)
[2023-10-16] MEDS: MORPHINE SULFATE 4 MG/ML SYRINGE IV PRN (09:24)
[2023-10-16 11:42] LABS: Glucose,Whole Blood 190 mg/dL (70-110)
--- NOTE | 2023-10-16 11:52 | P.CNPUL ---
History of Present Illness Consult date: 10/16/23 Requesting physician: Antoine E Saturnino Reason for consult: dyspnea, COPD, hypoxemia, abnormal CXR/CT Chief complaint: Shortness of breath, palpitations History of present illness: This is a pleasant 67-year-old female patient with a known history of chronic obstructive pulmonary disease secondary to 50 years of smoking, oxygen dependent, hypertension, hyperlipidemia, fibromyalgia, CVA/TIA, memory impairment, anxiety/depression/panic disorder, atrial fibrillation anticoagulated with Eliquis. She presented to the emergency room yesterday with complaints of shortness of breath, dyspnea on exertion and palpitations. This had been going on for approximately 3 days. Chest x-ray reveals no acute cardiopulmonary process. Evidence of COPD. White count 8.6. Hemoglobin 13.4. Platelets 343. Sodium 134. Potassium 4.0. Bicarb 17. BUN 41. Creatinine 1.73. Glucose 145. Troponin 0.050, 0.059, 0.058. BNP 18,200. AST 151. ALT 165. She is seen today in consultation on the selective care unit. She is currently sitting up in bed. Awake and alert in no acute distress. She is maintaining O2 saturations in the 90s on 2 L/min per nasal cannula. She is currently on a Cardizem drip at 15 mg/h. Anticoagulated with Eliquis. Initiated on DuoNeb inhalations, Symbicort, Solu-Medrol. Continued on IV diuretics. No accurate intake and output recorded. Review of Systems REVIEW OF SYSTEMS: CONSTITUTIONAL: Denies any recent significant weight loss or weight gain. EYES: Denies change in vision. EARS, NOSE, MOUTH, THROAT: Denies headaches, denies sore throat. CARDIOVASCULAR: Positive for palpitations no syncopal episodes. RESPIRATORY: Positive for shortness of breath, cough, congestion no hemoptysis. GASTROINTESTINAL: Denies change in appetite, denies abdominal pain GENITOURINARY: Denies hematuria, denies infections. MUSKULOSKELETAL: Denies pain, denies swelling. INTEGUMENTARY: Denies rash, denies eczema. NEUROLOGICAL: Denies recent memory loss, no recent seizure activity. PSYCHIATRIC: Denies anxiety, denies depression. HEMATOLOGIC/LYMPHATIC: Denies anemia, denies enlarged lymph nodes. Past Medical History Past Medical History: Atrial Fibrillation, CVA/TIA, Fibromyalgia, Hyperlipidemia, Hypertension, Memory Impairment, Osteoarthritis (OA) Additional Past Medical History / Comment(s): chronic neck and back pain, ddd, ARTHRITIS, USES CANE NEEDED FOR FIBROMYALGIA History of Any Multi-Drug Resistant Organisms: None Reported Past Surgical History: Hernia Repair, Hysterectomy Additional Past Surgical History / Comment(s): cervical fusion, Past Anesthesia/Blood Transfusion Reactions: No Reported Reaction Past Psychological History: Anxiety, Depression, Panic Disorder Smoking Status: Former smoker Past Alcohol Use History: None Reported Past Drug Use History: None Reported - Past Family History Mother Family Medical History: Cancer Medications and Allergies Home Medications Medication Instructions Recorded Confirmed Type DULoxetine HCL [Cymbalta] 120 mg PO DAILY 01/15/15 10/15/23 History Furosemide [Lasix] 40 mg PO BID@0900,1600 #60 tab 02/15/23 10/15/23 Rx Spironolactone [Aldactone] 25 mg PO DAILY #30 tablet 02/15/23 10/15/23 Rx Apixaban [Eliquis] 2.5 mg PO BID 10/15/23 10/15/23 History Allergies Allergy/AdvReac Type Severity Reaction Status Date / Time No Known Allergies Allergy Verified 10/15/23 14:11 Physical Exam Vitals: Vital Signs Temp Pulse Pulse Resp BP BP Pulse Ox 10/16/23 08:00 97.8 F 128 H 20 97/64 95 10/16/23 03:28 98.3 F 93 20 110/82 91 L 10/15/23 23:21 98.1 F 73 20 126/103 92 L 10/15/23 20:55 97.9 F 139 H 24 112/61 98 10/15/23 20:00 97.0 F L 146 H 24 114/81 96 10/15/23 19:35 96 10/15/23 19:33 154 H 10/15/23 19:00 144 H 16 104/78 10/15/23 17:46 151 H 18 124/76 96 10/15/23 16:10 156 H 18 109/61 95 10/15/23 15:23 24 10/15/23 15:00 149 H 24 123/90 98 10/15/23 14:45 160 H 24 123/91 97 10/15/23 13:51 97.0 F L 165 H 18 123/104 97 10/15/23 13:36 97.8 F 151 H 20 123/104 99 Intake and Output 10/15/23 10/16/23 10/16/23 22:59 06:59 14:59 Intake Total 240 Balance 240 Intake: Oral 240 Other: # Voids 1 Weight 99.79 kg 83 kg GENERAL EXAM: Alert, pleasant 67-year-old female, on 2 L nasal cannula, fairly comfortable in no apparent distress. HEAD: Normocephalic. EYES: Normal reaction of pupils, equal size. NOSE: Clear with pink turbinates. THROAT: No erythema or exudates. NECK: No masses, no JVD. CHEST: No chest wall deformity. LUNGS: Equal air entry with bilateral end expiratory wheeze, diminished. CVS: S1 and S2 normal with no audible murmur, irregular rhythm. ABDOMEN: No hepatosplenomegaly, normal bowel sounds, no guarding or rigidity. SPINE: No scoliosis or deformity SKIN: No rashes CENTRAL NERVOUS SYSTEM: No focal deficits, tone is normal in all 4 extremities. EXTREMITIES: There is no peripheral edema. No clubbing, no cyanosis. Peripheral pulses are intact. Results - Laboratory Findings CBC and BMP: 10/16/23 05:04 10/16/23 05:04 PT/INR, D-dimer PT 13.6 sec (10.0-12.5) H 10/15/23 14:15 INR 1.3 (<1.2) H 10/15/23 14:15 Abnormal lab findings: Abnormal Labs 10/15/23 10/15/23 10/15/23 14:15 14:15 14:15 WBC 10.8 H MCV MCHC 30.5 L Neutrophils # 8.1 H Lymphocytes # PT 13.6 H INR 1.3 H Sodium 136 L Carbon Dioxide 19 L BUN 32 H Creatinine 1.40 H Glucose 125 H POC Glucose (mg/dL) Hemoglobin A1c Total Bilirubin 1.4 H AST 151 H ALT 165 H Troponin I 10/15/23 10/15/23 10/15/23 14:15 18:01 18:01 WBC MCV MCHC Neutrophils # Lymphocytes # PT INR Sodium Carbon Dioxide BUN Creatinine Glucose POC Glucose (mg/dL) Hemoglobin A1c 6.3 H Total Bilirubin AST ALT Troponin I 0.050 H* 0.059 H* 10/15/23 10/15/23 10/16/23 21:01 21:17 05:04 WBC MCV 100.7 H MCHC 30.3 L Neutrophils # Lymphocytes # 0.7 L PT INR Sodium Carbon Dioxide BUN Creatinine Glucose POC Glucose (mg/dL) 141 H Hemoglobin A1c Total Bilirubin AST ALT Troponin I 0.058 H* 10/16/23 10/16/23 05:04 05:30 WBC MCV MCHC Neutrophils # Lymphocytes # PT INR Sodium 134 L Carbon Dioxide 17 L BUN 41 H Creatinine 1.73 H Glucose 145 H POC Glucose (mg/dL) 145 H Hemoglobin A1c Total Bilirubin AST ALT Troponin I - Diagnostic Findings Chest x-ray: image reviewed Assessment and Plan Assessment: Acute on chronic hypoxic respiratory failure secondary to an acute exacerbation of chronic obstructive pulmonary disease, atrial fibrillation with a rapid ventricular response, exacerbation of diastolic congestive heart failure History of atrial fibrillation anticoagulated with Eliquis, currently on a Cardizem drip Acute exacerbation of oxygen dependent chronic obstructive pulmonary disease History of 50+ years of smoking states quit 3 years ago History of CVA/TIA History of fibromyalgia Hyperlipidemia History of hypertension History of anxiety/depression/panic disorder Plan: The patient was seen and evaluated Chest x-ray, labs and medications reviewed Continue DuoNeb inhalations, Symbicort, Solu-Medrol Continue IV diuretics Continue Cardizem drip Anticoagulated with Eliquis Titrate the FiO2 as tolerated We will continue to follow and make further recommendations based on her clinical status I have personally seen and examined the patient, performed the documentation and the assessment and plan as written. Number of minutes spent on the visit: 20.
--- NOTE | 2023-10-16 12:34 | CA ---
Transthoracic Echo Report Name: Lindsay Dunn Age: 67 Gender: F : 1955 Exam Date: 10/16/2023 08:37 Exam Location: [facility] Ht (in): 64 Wt (lb): 220 Ordering Physician: Radha Barahona MD Attending/Referring Phys: Counterintelligence Agent Pennie Ram RDCS Procedure CPT: Indications: chf Cardiac Hx: Technical Quality: Technically difficult study Contrast 1: Total Dose (mL): Contrast 2: Total Dose (mL): MEASUREMENTS (Male / Female) Normal Values 2D ECHO LV Diastolic Diameter PLAX 6.0 cm 4.2 - 5.9 / 3.9 - 5.3 cm LV Systolic Diameter PLAX 6.1 cm IVS Diastolic Thickness 1.2 cm 0.6 - 1.0 / 0.6 - 0.9 cm LVPW Diastolic Thickness 1.3 cm 0.6 - 1.0 / 0.6 - 0.9 cm LV Relative Wall Thickness 0.4 RV Internal Dim ED PLAX 3.3 cm LA Systolic Diameter LX 5.5 cm 3.0 - 4.0 / 2.7 - 3.8 cm M-MODE Aortic Root Diameter MM 3.5 cm AV Cusp Separation MM 2.0 cm DOPPLER AV Peak Velocity 160.9 cm/s AV Peak Gradient 10.3 mmHg MV Peak Velocity 154.2 cm/s MV Peak Gradient 9.5 mmHg MV Mean Velocity 80.8 cm/s MV Mean Gradient 3.3 mmHg MV Velocity Time Integral 22.1 cm MV Area PHT 6.8 cm??? MR Peak Velocity 416.7 cm/s MR Peak Gradient 69.5 mmHg MV Deceleration Time 189.0 ms TR Peak Velocity 264.0 cm/s TR Peak Gradient 27.9 mmHg Right Ventricular Systolic Press 46.0 mmHg FINDINGS Left Ventricle Left ventricular ejection fraction is estimated at 20-25 %. Mildly increased septal wall thickness. Mildly increased posterior wall thickness. Moderately increased left ventricular diastolic diameter. Global left ventricular hypokinesis. Right Ventricle Mild right ventricular dilatation. Moderate pulmonary hypertension. Right ventricular systolic pressure estimated at 46 mm hg. Right Atrium Mild right atrial dilatation. No right atrial thrombus or mass seen. Left Atrium Severely increased left atrial diameter. Moderately increased left atrial area. Mitral Valve Mitral valve thickened. Mild mitral annular calcification. Moderate to severe mitral regurgitation. Aortic Valve Trileaflet aortic valve. Aortic valve sclerosis. No aortic regurgitation. No aortic stenosis. Tricuspid Valve Structurally normal tricuspid valve. Moderate to severe tricuspid regurgitation. Pulmonic Valve Structurally normal pulmonic valve. No pulmonic regurgitation. Pericardium No pericardial effusion. No pleural effusion. Aorta Normal size aortic root and proximal ascending aorta. CONCLUSIONS Left ventricular ejection fraction 20-25% with global hypokinesis Mildly increased left ventricular wall thickness Moderate to severe mitral regurgitation Moderate to severe tricuspid regurgitation No pericardial effusion Previewed by: Dr. Juan Jose Mcintyre DO (Electronically Signed) Final Date: 16 October 2023 12:33
[2023-10-16] MEDS: DEXTROSE 5% IN WATER 100 ML with AMIODARONE 150 MG IV ONE (15:24)
[2023-10-16] MEDS: AMIODARONE 360 MG in DEXTROSE 5% IN WATER 200 ML IV ONE (15:24)
--- NOTE | 2023-10-16 16:09 | P.CRDCN ---
History of Present Illness Consult date: 10/16/23 Consult reason: atrial fibrillation, congestive heart failure, shortness of breath Chief complaint: sob History of present illness: History of present illness: Patient is a pleasant 67-year-old female with significant past medical history of A-fib, fibromyalgia, hypertension, hyperlipidemia, and COPD who presented with worsening shortness of breath and chest pain. She does see Dr. Hughes in the office. She reports that her shortness of breath has been worse week. She has been having pain in the middle of her chest that is worse with movement. She is also been having worsening edema in her lower extremities. She was a former smoker and quit 3 years ago. EKG did show A-fib with RVR and she was started on diltiazem drip. Troponin 0.05, 0.059, 0.058, BNP 45713. She did have a prior echo from 01/2023 with preserved EF, RVSP 40. She remains in A-fib on telemetry with heart rates [id number] on diltiazem drip at 15. She does report that she is feeling a little better today. She denies any chest pain or pr essure. Her shortness of breath has improved however is not back at her baseline. REVIEW OF SYSTEMS: No fever or chills. No cough or expectoration. No diaphoresis. Patient denies headache, dizziness, blurred vision, double vision. Patient denies any stomach discomfort. No nausea, vomiting. No hematochezia. No hematemesis. Denies any black stools or blood in his stools. Denies dysuria or hematuria. No muscle weakness or numbness. No chest pain or pressure. Reports shortness of breath PHYSICAL EXAMINATION: This is a 67-year-old female in no apparent distress at the time of my examination. HEENT: Head is atraumatic, normocephalic. Pupils are equal, round. Sclerae anicteric. Conjunctivae are clear. Mucous membranes of the mouth are moist. Neck is supple. There is no jugular venous distention. No carotid bruit is heard. CHEST EXAMINATION: Lungs with crackles. No chest wall tenderness is noted on palpation or with deep breathing. HEART EXAMINATION: Heart irregular rate and rhythm. S1, S2 heard. No murmurs, gallops or rub. ABDOMEN: Soft, nontender. Bowel sounds are heard. No organomegaly noted. EXTREMITIES: 2+ peripheral pulses with trace peripheral edema and no calf tenderness noted. NEUROLOGIC EXAMINATION: Patient is awake, alert and oriented x3. IMPRESSION AND PLAN: A-fib with RVR, paroxysmal Hypertension Hyperlipidemia Shortness of breath Chest pain COPD Acute on chronic systolic heart failure PLAN: We will check echocardiogram to evaluate heart function and structure, which revealed EF of 20-25%, moderatesevere mitral and tricuspid regurgitation. Need Better rate control versus rhythm control for atrial fibrillation. We will start amiodarone drip, wean off diltiazem drip. Continue with metoprolol and will increase to 37.5 mg. Check TSH. Continue with anticoagulation. May need to consider cardioversion. We will follow. I am dictating on behalf of Dr. Juan Jose Mcintyre's history/physical and assessment/plan. Past Medical History Past Medical History: Atrial Fibrillation, CVA/TIA, Fibromyalgia, Hyperlipidem ia, Hypertension, Memory Impairment, Osteoarthritis (OA) Additional Past Medical History / Comment(s): chronic neck and back pain, ddd, ARTHRITIS, USES CANE NEEDED FOR FIBROMYALGIA History of Any Multi-Drug Resistant Organisms: None Reported Past Surgical History: Hernia Repair, Hysterectomy Additional Past Surgical History / Comment(s): cervical fusion, Past Anesthesia/Blood Transfusion Reactions: No Reported Reaction Past Psychological History: Anxiety, Depression, Panic Disorder Smoking Status: Former smoker Past Alcohol Use History: None Reported Past Drug Use History: None Reported - Past Family History Mother Family Medical History: Cancer Medications and Allergies Home Medications Medication Instructions Recorded Confirmed Type DULoxetine HCL [Cymbalta] 120 mg PO DAILY 01/15/15 10/15/23 History Furosemide [Lasix] 40 mg PO BID@0900,1600 #60 tab 02/15/23 10/15/23 Rx Spironolactone [Aldactone] 25 mg PO DAILY #30 tablet 02/15/23 10/15/23 Rx Apixaban [Eliquis] 2.5 mg PO BID 10/15/23 10/15/23 History Allergies Allergy/AdvReac Type Severity Reaction Status Date / Time No Known Allergies Allergy Verified 10/15/23 14:11 Physical Exam Vitals: Vital Signs Temp Pulse Pulse Resp BP BP Pulse Ox 10/16/23 03:28 98.3 F 93 20 110/82 91 L 10/15/23 23:21 98.1 F 73 20 126/103 92 L 10/15/23 20:55 97.9 F 139 H 24 112/61 98 10/15/23 20:00 97.0 F L 146 H 24 114/81 96 10/15/23 19:35 96 10/15/23 19:33 154 H 10/15/23 19:00 144 H 16 104/78 10/15/23 17:46 151 H 18 124/76 96 10/15/23 16:10 156 H 18 109/61 95 10/15/23 15:23 24 10/15/23 15:00 149 H 24 123/90 98 10/15/23 14:45 160 H 24 123/91 97 10/15/23 13:51 97.0 F L 165 H 18 123/104 97 10/15/23 13:36 97.8 F 151 H 20 123/104 99 Intake and Output 10/15/23 10/16/23 10/16/23 22:59 06:59 14:59 Intake Total 240 Balance 240 Intake: Oral 240 Other: # Voids 1 Weight 99.79 kg 83 kg Results 10/16/23 05:04 10/16/23 05:04 Cardiac Enzymes 10/15/23 10/15/23 10/15/23 Range/Units 14:15 14:15 18:01 AST 151 H (14-36) U/L Troponin I 0.050 H* 0.059 H* (0.000-0.034) ng/mL 10/15/23 Range/Units 21:17 AST (14-36) U/L Troponin I 0.058 H* (0.000-0.034) ng/mL Coagulation 10/15/23 Range/Units 14:15 PT 13.6 H (10.0-12.5) sec APTT 25.8 (22.0-30.0) sec CBC 10/15/23 10/16/23 Range/Units 14:15 05:04 WBC 10.8 H 8.6 (3.8-10.6) k/uL RBC 4.40 4.40 (3.80-5.40) m/uL Hgb 13.3 13.4 (11.4-16.0) gm/dL Hct 43.6 44.3 (34.0-46.0) % Plt Count 340 343 (150-450) k/uL Comprehensive Metabolic Panel 10/15/23 10/16/23 Range/Units 14:15 05:04 Sodium 136 L 134 L (137-145) mmol/L Potassium 3.8 4.0 (3.5-5.1) mmol/L Chloride 105 103 (98-107) mmol/L Carbon Dioxide 19 L 17 L (22-30) mmol/L BUN 32 H 41 H (7-17) mg/dL Creatinine 1.40 H 1.73 H (0.52-1.04) mg/dL Glucose 125 H 145 H (74-99) mg/dL Calcium 9.5 9.5 (8.4-10.2) mg/dL AST 151 H (14-36) U/L ALT 165 H (4-34) U/L Alkaline Phosphatase 101 (38-126) U/L Total Protein 6.5 (6.3-8.2) g/dL Albumin 4.0 (3.5-5.0) g/dL Current Medications Generic Name Dose Route Start Last Admin Trade Name Freq PRN Reason Stop Dose Admin Acetaminophen 650 mg 10/15/23 15:24 10/16/23 09:21 Acetaminophen Tab 325 Mg Tab PO 650 mg Q6HR PRN Administration Mild Pain or Fever > 100.5 Albuterol/Ipratropium 3 ml 10/15/23 16:00 10/16/23 07:48 Ipratropium-Albuterol 3 Ml Neb INHALATION Not Given RT-Q4H [facility] Apixaban 2.5 mg 10/15/23 21:00 10/16/23 09:21 Apixaban 2.5 Mg Tablet PO 2.5 mg BID ISIDORO Administration Protocol Budesonide/Formoterol Fumarate 2 puff 10/15/23 20:00 10/16/23 07:48 Symbicort 160-4.5 Mcg Inhaler INHALATION 2 puff RT-BID ISIDORO Administration Dextrose/Water 25 ml 10/15/23 16:24 Dextrose 50% Syringe 50 Ml IVP PER PROTOCOL PRN Hypoglycemia Protocol Dextrose/Water 50 ml 10/15/23 16:24 Dextrose 50% Syringe 50 Ml IVP PER PROTOCOL PRN Hypoglycemia Protocol Duloxetine HCl 120 mg 10/16/23 09:00 10/16/23 09:21 Duloxetine Hcl 60 Mg Capsule.Dr PO 120 mg DAILY ISIDORO Administration Furosemide 40 mg 10/15/23 16:30 10/16/23 09:21 Furosemide 10 Mg/Ml 4 Ml Vial IV 40 mg Q8HR ISIDORO Administration Diltiazem HCl 125 mg/ Sodium 125 mls @ 0 mls/hr 10/15/23 15:30 10/15/23 22:53 Chloride IV 15 ml/hr .Q0M ISIDORO 15 mls/hr Administration Protocol Per Protocol Insulin Aspart 0 unit 10/15/23 17:30 10/16/23 05:49 Insulin Aspart (Novolog) 100 Unit/Ml Vial SQ Not Given ACHS ISIDORO Protocol Methylprednisolone Sodium Succinate 60 mg 10/15/23 18:00 10/16/23 06:04 Methylprednisolone Sod Succi 125 Mg/2 Ml Vial IV 60 mg Q6HR ISIDORO Administration Metoprolol Tartrate 25 mg 10/15/23 21:00 10/16/23 09:21 Metoprolol Tartrate 25 Mg Tab PO 25 mg BID ISIDORO Administration Morphine Sulfate 4 mg 10/15/23 15:24 10/16/23 09:24 Morphine Sulfate 4 Mg/Ml Syringe IV 4 mg Q4HR PRN Administration Severe Pain (Scale 7 to 10) Naloxone HCl 0.2 mg 10/15/23 15:24 Naloxone 0.4 Mg/Ml 1 Ml Vial IV Q2M PRN Opioid Reversal Spironolactone 25 mg 10/16/23 09:00 10/16/23 09:21 Spironolactone 25 Mg Tab PO 25 mg DAILY ISIDORO Administration Intake and Output 10/15/23 10/16/23 10/16/23 22:59 06:59 14:59 Intake Total 240 Balance 240 Intake: Oral 240 Other: # Voids 1 Weight 99.79 kg 83 kg 10/16/23 05:04 10/16/23 05:04
[2023-10-16 16:58] LABS: Glucose,Whole Blood 210 mg/dL (70-110)
--- NOTE | 2023-10-16 16:59 | XR ---
EXAMINATION TYPE: XR chest 1V portable DATE OF EXAM: 10/16/2023 Comparison: 10/15/2023 Clinical History: 67-year-old female short of breath, CHF Findings: Heart is mild to moderately enlarged. Mild interstitial density without consolidation or pleural effu gaston. Impression: Moderate cardiomegaly and chronic changes. No martha pulmonary edema.
[2023-10-16] MEDS: METOPROLOL TARTRATE 12.5 MG TAB PO SCH (20:03)
[2023-10-16] MEDS: FUROSEMIDE 10 MG/ML 4 ML VIAL IV SCH (20:04)
[2023-10-16 20:21] LABS: Glucose,Whole Blood 134 mg/dL (70-110)
[2023-10-16] MEDS: AMIODARONE 450 MG in DEXTROSE 5% IN WATER 250 ML IV SCH (21:32)
--- NOTE | 2023-10-17 01:46 | PN ---
PROGRESS NOTE DATE OF SERVICE: 10/16/2023 SUBJECTIVE: This 67-year-old woman, who was admitted with atrial fibrillation with fast ventricular rate, also had multiple other medical issues including elevated troponin and COPD. The patient was initiated on amiodarone bolus and drip at this time. The patient has apparently not responded to Cardizem drip at this time. PAST MEDICAL HISTORY: Reviewed. REVIEW OF SYSTEMS: A 14-point review is negative except as mentioned earlier. CURRENT MEDICATIONS: Reviewed and include amiodarone drip with dose and rest of medications reviewed. PHYSICAL EXAMINATION: VITAL SIGNS: Pulse is 128 and irregular; blood pressure of 97/62, respirations 20. HEENT: Conjunctivae normal. CARDIOVASCULAR: S1, S2. Tachycardic. RESPIRATIONS: Few scattered rhonchi. ABDOMEN: Soft. NERVOUS SYSTEM: Nonfocal. LABORATORY DATA: Troponin 0.058 and creatinine is 1.73. Chest x-ray, COPD. ASSESSMENT: 1. Atrial fibrillation with fast ventricular rate on amiodarone. 2. Shortness of breath with possible chronic obstructive pulmonary disease, acute exacerbation. 3. Rule out congestive heart failure with acute exacerbation with bilateral leg edema. 4. Troponin of 0.058. Rule out acute [id number] elevation myocardial infarction. 5. Hypertension. 6. Hyperlipidemia. 7. Multiple complex medical issues. RECOMMENDATIONS: Recommended to continue current management. Continue with amiodarone. Repeat labs. Creatinine is 1.73. Closely follow with Cardiology and Pulmonology. Repeat chest x- ray. Prognosis is guarded because of multiple complex medical issues. Further recommendations to follow. We will cut down the Lasix also. MMODL / IJN: [id number] /
[2023-10-17] MEDS ORDERED: ZINC OXIDE PASTE (Z-GUARD) 1 APPLIC TOPICAL PRN (03:54)
[2023-10-17] MEDS: NALOXONE 0.4 MG/ML 1 ML VIAL IV PRN (05:01)
[2023-10-17] MEDS: DEXTROSE 50% SYRINGE 50 ML IVP PRN (05:07)
[2023-10-17 05:20] LABS: Glucose,Whole Blood 50 mg/dL (70-110)
[2023-10-17 05:21] LABS: Glucose,Whole Blood 129 mg/dL (70-110)
[2023-10-17] MEDS ORDERED: SODIUM BICARB 8.4% 50 ML SYR (1 MEQ/ML) ONE (05:38)
[2023-10-17] MEDS ORDERED: EPINEPHrine 10 ML SYRINGE (0.1 MG/ML) ONE (05:38)
[2023-10-17 06:10] LABS: Glucose,Whole Blood 126 mg/dL (70-110)
[2023-10-17 06:47] VITALS: TEMP 96
[2023-10-17] MEDS ORDERED: SUCCINYLCHOLINE CHLORIDE 200 MG/10 ML VIAL IV ONE (06:50)
[2023-10-17] MEDS ORDERED: ETOMIDATE 2 MG/ML 10 ML VIAL ONE (06:50)
[2023-10-17 06:58] LABS: ABG Base Excess -27.2 mmol/L; ABG Oxygen Saturation 98.2 % (94-97); ABG PCO2 31 mmHg (35-45); ABG PO2 229 mmHg (83-108); ABG TCO2 7 mmol/L (19-24); Allen Test Performed? Yes
[2023-10-17 07:00] LABS: ABG HCO3 6 mmol/L (21-25); ABG PH 6.86 (7.35-7.45)
--- NOTE | 2023-10-17 07:04 | P.EN ---
CODE BLUE note Activated at 5:22 AM. Arrived on the scene shortly after. The chart was reviewed and the case was discussed with the RN. The patient was admitted for respiratory failure was initially noted earlier in the night to be in A-fib with RVR. She was started on amiodarone infusion. She was then noted to have labored breathing and there was suspicion for opiate toxicity in setting of LIAM. Narcan was administered with minimal improvements. The patient was also noted to have hypoglycemia for which an amp of dextrose was administered. She was subsequently noted to have PEA for which CPR was briefly initiated but the patient began to respond she was given 1 amp of epinephrine. The patient was subsequently intubated and transferred to the medical ICU. She was started on Levophed and responded well. Laboratory evaluation along with chest x-rays were ordered. The primary team and family were notified. Case was discussed with the in person. Total time spent providing critical care for this patient: 45 minutes
--- NOTE | 2023-10-17 07:13 | XR ---
EXAMINATION TYPE: XR chest 1V portable DATE OF EXAM: 10/17/2023 CLINICAL HISTORY: Difficulty breathing progress study. Intubation. TECHNIQUE: Single AP portable supine view of the chest is obtained. COMPARISON: Chest x-ray from one day earlier FINDINGS: There is no endotracheal tube terminating at aortic knob level approximately 1 to 2 cm abo ve the ivet. Advise pulling back 2 cm to be more ideal position. There is new orogastric tube proje cting below diaphragm. Persistent cardiomegaly. Lungs remain clear. Osseous structures are intact. IMPRESSION: 1. New orogastric tube is satisfactory in position. 2. New endotracheal tube is slightly low-lying, advise pulling back 2.0 cm to be in more ideal positi on. 3. Cardiomegaly without acute pulmonary process redemonstrated. No significant change from most recen t prior.
[2023-10-17 07:26] LABS: HCT 44.3 % (34.0-46.0); HGB 12.7 gm/dL (11.4-16.0); Hypochromasia Marked; MCH 31.4 pg (25.0-35.0); MCHC 28.7 g/dL (31.0-37.0); Macrocytosis Marked; Mean Platelet Volume 9.9; Platelet Count 275 k/uL (150-450); RBC 4.05 m/uL (3.80-5.40); RDW 13.7 % (11.5-15.5)
[2023-10-17 07:34] LABS: MCV 109.5 fL (80.0-100.0)
[2023-10-17] MEDS: CISATRACURIUM 2 MG/ML 5 ML VIAL IV ONE (07:38)
[2023-10-17] MEDS: SODIUM CHLORIDE 0.9% 1,000 ML IV ONE (07:41)
[2023-10-17] MEDS: IPRATROPIUM-ALBUTEROL 3 ML NEB INHALATION SCH (07:45)
[2023-10-17] MEDS: DEXTROSE 5% IN WATER 1,000 ML with SODIUM BICARB (1 MEQ/ML) 150 ML IV SCH (07:55)
[2023-10-17] MEDS: NOREPINEPHRINE 4 MG in SODIUM CHLORIDE 0.9% 250 ML IV SCH (07:56)
[2023-10-17] MEDS: SODIUM BICARB 8.4% 50 ML SYR (1 MEQ/ML) IV STA ×3 (07:56→11:41)
[2023-10-17] MEDS: LACTATED RINGERS 1,000 ML IV ONE (07:57)
[2023-10-17] MEDS: SODIUM CHLORIDE 0.9% 1,000 ML BAG IV STA (07:58)
[2023-10-17 08:01] LABS: Glucose,Whole Blood 108 mg/dL (70-110)
[2023-10-17 08:10] LABS: Band Neutrophils % 3 %; Neutrophils % (M) 86 %; Nucleated Red Blood Cells 3 /100 WBC (0-0); Total Cells Counted 200
[2023-10-17 08:11] LABS: Lymphocytes # (M) 1.49 k/uL (1.0-4.8); Monocytes # (M) 0.85 k/uL (0-1.0); WBC 21.3 k/uL (3.8-10.6)
[2023-10-17 08:14] LABS: Polychromasia Present
[2023-10-17] MEDS ORDERED: NOREPINEPHRINE 8 MG in SODIUM CHLORIDE 0.9% 250 ML IV SCH (08:15)
[2023-10-17] MEDS: NOREPINEPHRINE 32 MG in SODIUM CHLORIDE 0.9% 218 ML IV SCH (08:31)
[2023-10-17] MEDS: VASOPRESSIN 60 UNIT in SODIUM CHLORIDE 0.9% 150 ML IV SCH (08:38)
[2023-10-17] MEDS: HYDROCORTISONE SUCCINATE 100 MG/2 ML VIAL IV SCH (08:38)
[2023-10-17 08:40] VITALS: BP 68/48; RESP 18
--- NOTE | 2023-10-17 09:00 | P.PN ---
Subjective Progress Note Date: 10/17/23 This is a pleasant 67-year-old female patient with a known history of chronic obstructive pulmonary disease secondary to 50 years of smoking, oxygen dependent, hypertension, hyperlipidemia, fibromyalgia, CVA/TIA, memory impairment, anxiety/depression/panic disorder, atrial fibrillation anticoagulated with Eliquis. She presented to the emergency room yesterday with complaints of shortness of breath, dyspnea on exertion and palpitations. This had been going on for approximately 3 days. Chest x-ray reveals no acute cardiopulmonary process. Evidence of COPD. White count 8.6. Hemoglobin 13.4. Platelets 343. Sodium 134. Potassium 4.0. Bicarb 17. BUN 41. Creatinine 1.73. Glucose 145. Troponin 0.050, 0.059, 0.058. BNP 18,200. AST 151. ALT 165. She is seen today in consultation on the selective care unit. She is currently sitting up in bed. Awake and alert in no acute distress. She is maintaining O2 saturations in the 90s on 2 L/min per nasal cannula. She is currently on a Cardizem drip at 15 mg/h. Anticoagulated with Eliquis. Initiated on DuoNeb inhalations, Symbicort, Solu-Medrol. Continued on IV diuretics. No accurate intake and output recorded. The patient is seen today October 17, 2023 in follow-up in the intensive care unit. At approximately 5:20 this morning a CODE BLUE was called on the patient. She had developed labored breathing and there was suspicion for opioid toxicity in the setting of acute kidney injury. Narcan was administered. The patient was also noted to be hypoglycemic and dextrose was administered. She developed PEA and received brief CPR and was given an amp of epinephrine. She was subsequently intubated and transferred to the intensive care unit. Ventilator and assist-control mode at a rate of 18, tidal volume 450, FiO2 80% and a PEEP of 5. 2 of 222, pCO2 of 31 and a pH of 6.86 on 100% FiO2. White count 21.3. Hemoglobin 12.7. Platelets 275. Glucose 108. She is profoundly hypotensive. She is on maximum dose of norepinephrine. Vasopressin has been initiated. She is receiving IV fluids. She received 4 A of sodium bicarb. She was initiated on an D5W with 3 A of bicarb drip at 150 MLS per hour. She is on propofol at 25 mcg/kg/min. She is on bronchodilators and IV Solu-Medrol. Echocardiogram revealed an ejection fraction of 20 to 25% with global hypokinesia. Moderate to severe mitral regurgitation. Moderate to severe tricuspid her education. Severely increased left atrial diameter. X-ray reveals cardiomegaly with some mild fluid overload. Objective - Vital Signs Vital signs: Vital Signs Temp 96.0 F L 10/17/23 04:00 Pulse 112 H 10/17/23 08:30 Resp 18 10/17/23 08:30 BP 68/48 10/17/23 08:15 Pulse Ox 61 L 10/17/23 07:30 FiO2 80 10/17/23 07:53 Intake & Output 10/16/23 10/17/23 10/17/23 18:59 06:59 18:59 Intake Total 75 13.703 Output Total 200 0 60 Balance -125 0 -46.297 Intake: Intake, IV Titration 75 13.703 Amount Diltiazem 125 mg In 75 Sodium Chloride 0.9% 100 ml @ Per Protocol IV .Q0M ISIDORO Rx#:[id number] Norepinephrine 4 mg In 13.703 Sodium Chloride 0.9% 250 ml @ 0.05 MCG/KG/MIN 15. 812 mls/hr IV .Q16H4M ISIDORO Rx#:[id number] Output: Urine 200 0 60 Other: Voiding Method Indwelling Catheter # Voids 3 0 ABP, PAP, CO, CI - Last Documented Arterial Blood Pressure 87/54 - Exam GENERAL EXAM: Intubated, sedated 67-year-old female, on the mechanical ventilator. HEAD: Normocephalic. EYES: Normal reaction of pupils, equal size. NOSE: Clear with pink turbinates. THROAT: No erythema or exudates. NECK: No masses, no JVD. CHEST: No chest wall deformity. LUNGS: Equal air entry with crackles in the bilateral. CVS: S1 and S2 normal with no audible murmur, irregular rhythm. ABDOMEN: No hepatosplenomegaly, normal bowel sounds, no guarding or rigidity. SPINE: No scoliosis or deformity SKIN: No rashes CENTRAL NERVOUS SYSTEM: Sedated, tone is normal in all 4 extremities. EXTREMITIES: Right femoral triple-lumen catheter and arterial line in place. There is 1+ peripheral edema. No clubbing, no cyanosis. Peripheral pulses are intact. - Labs CBC & Chem 7: 10/17/23 07:00 10/16/23 05:04 Labs: Abnormal Lab Results - Last 24 Hours (Table) 10/16/23 10/16/23 10/16/23 Range/Units 05:04 11:40 16:56 WBC (3.8-10.6) k/uL MCV (80.0-100.0) fL MCHC (31.0-37.0) g/dL Neutrophils # (Manual) (1.3-7.7) k/uL Nucleated RBCs (0-0) /100 WBC Macrocytosis ABG pH (7.35-7.45) ABG pCO2 (35-45) mmHg ABG pO2 (83-108) mmHg ABG HCO3 (21-25) mmol/L ABG Total CO2 (19-24) mmol/L ABG O2 Saturation (94-97) % POC Glucose (mg/dL) 190 H 210 H (70-110) mg/dL TSH <0.015 L (0.465-4.680) mIU/L Free T4 2.30 H (0.78-2.19) ng/dL 10/16/23 10/17/23 10/17/23 Range/Units 20:20 05:06 05:19 WBC (3.8-10.6) k/uL MCV (80.0-100.0) fL MCHC (31.0-37.0) g/dL Neutrophils # (Manual) (1.3-7.7) k/uL Nucleated RBCs (0-0) /100 WBC Macrocytosis ABG pH (7.35-7.45) ABG pCO2 (35-45) mmHg ABG pO2 (83-108) mmHg ABG HCO3 (21-25) mmol/L ABG Total CO2 (19-24) mmol/L ABG O2 Saturation (94-97) % POC Glucose (mg/dL) 134 H 50 L 129 H (70-110) mg/dL TSH (0.465-4.680) mIU/L Free T4 (0.78-2.19) ng/dL 10/17/23 10/17/23 10/17/23 Range/Units 06:08 06:55 07:00 WBC 21.3 H (3.8-10.6) k/uL MCV 109.5 H D (80.0-100.0) fL MCHC 28.7 L (31.0-37.0) g/dL Neutrophils # (Manual) 18.90 H (1.3-7.7) k/uL Nucleated RBCs 3 H (0-0) /100 WBC Macrocytosis Marked A ABG pH 6.86 L* (7.35-7.45) ABG pCO2 31 L (35-45) mmHg ABG pO2 229 H (83-108) mmHg ABG HCO3 6 L* (21-25) mmol/L ABG Total CO2 7 L (19-24) mmol/L ABG O2 Saturation 98.2 H (94-97) % POC Glucose (mg/dL) 126 H (70-110) mg/dL TSH (0.465-4.680) mIU/L Free T4 (0.78-2.19) ng/dL Assessment and Plan Assessment: Acute cardiopulmonary arrest, PEA receiving brief round of CPR, intubated on mechanical ventilator on 10/17/2023 Initial presentation with acute on chronic hypoxic respiratory failure secondary to an acute exacerbation of chronic obstructive pulmonary disease, atrial fibrillation with a rapid ventricular response, exacerbation of systolic congestive heart failure Acute exacerbation of systolic congestive heart failure with an ejection fraction of 20 to 25% and global hypokinesia History of atrial fibrillation anticoagulated with Eliquis Acute exacerbation of oxygen dependent chronic obstructive pulmonary disease History of 50+ years of smoking states quit 3 years ago History of CVA/TIA History of fibromyalgia Hyperlipidemia History of hypertension History of anxiety/depression/panic disorder Plan: The patient was seen and evaluated Chest x-ray, ABGs, labs and medications reviewed Titrate down the FiO2 to 80% Add vasopressin Continue IV fluid resuscitation Stop Solu-Medrol Check a stat cortisol level Add solu Cortef 50 mg IV every 6 hours Received 4 A of sodium bicarb D5W with 3 A of bicarb at 150 MLS per hour Anticoagulated with Eliquis The patient's is at the bedside and aware of the critical illness of his We will continue to follow and make further recommendations based on her clinical status I have personally seen and examined the patient, performed the documentation and the assessment and plan as written. Number of minutes spent on the visit: 15.
[2023-10-17 09:04] LABS: ABG Base Excess -20.2 mmol/L; ABG Oxygen Saturation 98.6 % (94-97); ABG PCO2 33 mmHg (35-45); ABG PO2 186 mmHg (83-108); ABG TCO2 10 mmol/L (19-24); Allen Test Performed? Yes
[2023-10-17 09:07] LABS: ABG HCO3 9 mmol/L (21-25); ABG PH 7.05 (7.35-7.45)
[2023-10-17] MEDS: CHLORHEXIDINE GLUCONATE 15 ML CUP MUCOUS MEM SCH (09:39)
[2023-10-17 10:14] LABS: African American GFR (CKD) 22 (>60 ml/min/1.73 sqM); Albumin 1.8 g/dL (3.5-5.0); Alkaline Phosphatase 52 U/L (38-126); Anion Gap 16 mmol/L; Blood Urea Nitrogen 46 mg/dL (7-17); Carbon Dioxide 26 mmol/L (22-30); Chloride 105 mmol/L (98-107); Glucose 63 mg/dL (74-99); Magnesium 2.3 mg/dL (1.6-2.3); Non-African American GFR(CKD) 19 (>60 ml/min/1.73 sqM); Potassium 3.9 mmol/L (3.5-5.1); Sodium 147 mmol/L (137-145); Total Bilirubin 1.9 mg/dL (0.2-1.3); Total Protein 3.3 g/dL (6.3-8.2)
[2023-10-17 10:21] LABS: ALT 1786 U/L (4-34)
--- NOTE | 2023-10-17 10:26 | P.PN ---
Subjective Progress Note Date: 10/17/23 Consult reason: atrial fibrillation, congestive heart failure, shortness of breath Chief complaint: sob History of present illness: Patient is a pleasant 67-year-old female with significant past medical history of A-fib, fibromyalgia, hypertension, hyperlipidemia, and COPD who presented with worsening shortness of breath and chest pain. She does see Dr. Hanna in the office. She reports that her shortness of breath has been worse week. She has been having pain in the middle of her chest that is worse with movement. She is also been having worsening edema in her lower extremities. She was a former smoker and quit 3 years ago. EKG did show A-fib with RVR and she was started on diltiazem drip. Troponin 0.05, 0.059, 0.058, BNP 63735. She did have a prior echo from 01/2023 with preserved EF, RVSP 40. She remains in A-fib on telemetry with heart rates [id number] on diltiazem drip at 15. She does report that she is feeling a little better today. She denies any chest pain or pressure. Her shortness of breath has improved however is not back at her baseline. 10/16 This morning, breathing became labored and there was concern for opiate toxicity in setting of acute kidney injury. Narcan was administered with minimal improvement. Patient was also hypoglycemia and dextrose 1 amp was given. Patient then was in PEA and CPR was briefly initiated but patient responded status post 1 amp of epinephrine. Subsequently, the patient was intubated and transferred to the intensive care unit, started on Levophed. Patient was not on Cardizem drip and not on amiodarone gtt. Patient is seen and examined. Patient is maxed on Levophed and Vasopressin and not able to obtain BP readings. Patient is hypothermic and cyanotic. Urine output 5ml/hr. She has been started on bicarb drip as well. Laboratory studies revealed WBC 21.3, hemoglobin 12.7, platelet count 275. ABGs pH 6.86, pCO2 31, pO2 229, bicarb 6, total CO2 7, O2 sat 98, base excess -27.2. TSH less than 0.015 and free T4 high at 2.3. Chest x-ray reveals OG tube in satisfactory position, ET tube recommend pulling back 2 cm, cardiomegaly without acute pulmonary process redemonstrated. No significant change. EKG performed at 5:26 is atrial fibrillation with ventricular rate of 68 bpm, right bundle branch block. Echocardiogram reveals EF of 20 to 25% with global hypokinesis. Mildly increased left ventricular wall thickness. Moderate to severe mitral regurgitation. Moderate to severe tricuspid regurgitation. No pericardial effusion. PHYSICAL EXAMINATION: This is a 67-year-old female appears comfortable on mechanical ventilation. HEENT: Head is atraumatic, normocephalic. Pupils are equal, round. Sclerae anicteric. Conjunctivae are clear. Mucous membranes of the mouth are moist. Neck is supple. There is no jugular venous distention. No carotid bruit is heard. CHEST EXAMINATION: Lungs with crackles. No chest wall tenderness is noted on palpation or with deep breathing. HEART EXAMINATION: Heart irregular rate and rhythm. S1, S2 heard. No murmurs, gallops or rub. ABDOMEN: Soft, nontender. Bowel sounds are heard. No organomegaly noted. EXTREMITIES: 2+ peripheral pulses with trace peripheral edema and no calf tenderness noted. IMPRESSION AND PLAN: A-fib with RVR, paroxysmal Hypertension Hyperlipidemia Shortness of breath Chest pain COPD Acute on chronic systolic heart failure New right bundle branch block New cardiomyopathy, unknown type Valvular heart disease with moderate to severe mitral regurgitation and tricuspid regurgitation Hyperthyroidism Acute hypoxic respiratory failure requiring intubation and mechanical venti lation PLAN: Patient is off amiodarone drip and cardizem gtt. Patient will be resumed on Amiodarone gtt Continue metoprolol at increased dose of 37.5 mg twice daily. Continue Eliquis Plan for cardioversion today We will follow. I am dictating on behalf of Dr. Juan Jose Mcintyre's history/physical and assessment/plan. Objective - Vital Signs Vital signs: Vital Signs Temp 96.0 F L 10/17/23 04:00 Pulse 96 10/17/23 08:05 Resp 23 10/17/23 05:01 BP 96/54 10/17/23 04:00 Pulse Ox 92 L 10/17/23 04:00 FiO2 80 10/17/23 07:53 Intake & Output 10/16/23 10/17/23 10/17/23 18:59 06:59 18:59 Intake Total 75 13.703 Output Total 200 0 60 Balance -125 0 -46.297 Intake: Intake, IV Titration 75 13.703 Amount Diltiazem 125 mg In 75 Sodium Chloride 0.9% 100 ml @ Per Protocol IV .Q0M ISIDORO Rx#:[id number] Norepinephrine 4 mg In 13.703 Sodium Chloride 0.9% 250 ml @ 0.05 MCG/KG/MIN 15. 812 mls/hr IV .Q16H4M ISIDORO Rx#:[id number] Output: Urine 200 0 60 Other: Voiding Method External Catheter # Voids 3 0 - Labs CBC & Chem 7: 10/17/23 07:00 10/16/23 05:04 Labs: Abnormal Lab Results - Last 24 Hours (Table) 10/16/23 10/16/23 10/16/23 Range/Units 05:04 11:40 16:56 WBC (3.8-10.6) k/uL MCV (80.0-100.0) fL MCHC (31.0-37.0) g/dL Neutrophils # (Manual) (1.3-7.7) k/uL Nucleated RBCs (0-0) /100 WBC Macrocytosis ABG pH (7.35-7.45) ABG pCO2 (35-45) mmHg ABG pO2 (83-108) mmHg ABG HCO3 (21-25) mmol/L ABG Total CO2 (19-24) mmol/L ABG O2 Saturation (94-97) % POC Glucose (mg/dL) 190 H 210 H (70-110) mg/dL TSH <0.015 L (0.465-4.680) mIU/L Free T4 2.30 H (0.78-2.19) ng/dL 10/16/23 10/17/23 10/17/23 Range/Units 20:20 05:06 05:19 WBC (3.8-10.6) k/uL MCV (80.0-100.0) fL MCHC (31.0-37.0) g/dL Neutrophils # (Manual) (1.3-7.7) k/uL Nucleated RBCs (0-0) /100 WBC Macrocytosis ABG pH (7.35-7.45) ABG pCO2 (35-45) mmHg ABG pO2 (83-108) mmHg ABG HCO3 (21-25) mmol/L ABG Total CO2 (19-24) mmol/L ABG O2 Saturation (94-97) % POC Glucose (mg/dL) 134 H 50 L 129 H (70-110) mg/dL TSH (0.465-4.680) mIU/L Free T4 (0.78-2.19) ng/dL 10/17/23 10/17/23 10/17/23 Range/Units 06:08 06:55 07:00 WBC 21.3 H (3.8-10.6) k/uL MCV 109.5 H D (80.0-100.0) fL MCHC 28.7 L (31.0-37.0) g/dL Neutrophils # (Manual) 18.90 H (1.3-7.7) k/uL Nucleated RBCs 3 H (0-0) /100 WBC Macrocytosis Marked A ABG pH 6.86 L* (7.35-7.45) ABG pCO2 31 L (35-45) mmHg ABG pO2 229 H (83-108) mmHg ABG HCO3 6 L* (21-25) mmol/L ABG Total CO2 7 L (19-24) mmol/L ABG O2 Saturation 98.2 H (94-97) % POC Glucose (mg/dL) 126 H (70-110) mg/dL TSH (0.465-4.680) mIU/L Free T4 (0.78-2.19) ng/dL
[2023-10-17] MEDS: DEXTROSE 5% IN WATER 100 ML with AMIODARONE 150 MG IV ONE (10:59)
--- NOTE | 2023-10-17 11:02 | P.OP ---
Date of Procedure: 10/17/23 Preoperative Diagnosis: Cardiac Arrest Postoperative Diagnosis: cardiac arrest Procedure(s) Performed: right femoral central line and arterial line Implants: triple lumen catheter arterial line catheter Anesthesia: none Surgeon: Jacques Wright Pathology: none sent Condition: critical Disposition: ICU Indications for Procedure: code blue Description of Procedure: The right and left groin was prepped using chloraprep. An intraducer needle was use to cannulate the right femoral artery using ultrasound guidance. A guidewire was then used to exchange the introducer needle for an arterial catheter. Pressure and wave form was confirmed. Next, an ultrasound was then used to identify the right femoral vein. An introducer needle was then used to cannulate this vessel. A guidewire was placed and then placed. A yasmin incision was made and then a dilator sheath was passed over the guidewire. Next the guidewire was then removed and a flushed triple lumen catheter was placed. It was then secured by ICU staff. Patient tolerated procedure well.
[2023-10-17] MEDS: PHENYLEPHRINE 40 MG in SODIUM CHLORIDE 0.9% 250 ML IV SCH (11:30)
[2023-10-17] MEDS: AMIODARONE 360 MG in DEXTROSE 5% IN WATER 200 ML IV ONE (11:39)
[2023-10-17] MEDS: EPINEPHrine 4 MG in DEXTROSE 5% IN WATER 250 ML IV SCH (12:18)
--- NOTE | 2023-10-17 12:38 | P.PN ---
Progress Note - Text Progress Note Date: 10/17/23 CODE lazaro was called. This is the secod CODE blue on same day. Patient was found to be in PEA arrest. She was given one dose epinephrine and bicarb and achieved ROSC after one round of CPR. Patient is currently on 3 pressors and maxed out. Nurse discussed with family who were in the waiting room who then made the patiet DNR/DNI. Nurse notifed Dr. German.
--- NOTE | 2023-10-17 12:41 | XR ---
EXAMINATION TYPE: XR chest 1V portable DATE OF EXAM: 10/17/2023 Comparison: Earlier today Clinical History: 67 year-old female line placement Findings: ET tube tip 3.0 cm from the ivet. NG tube courses below the diaphragm. Left CVC tip has been placed in the interval with tip at the lower SVC region. Moderate cardiomegaly. Interstitial density persis ts. Possible trace right pleural effusion. No appreciable pneumothorax. Impression: 1. New left CVC tip at the expected lower SVC. 2. Moderate cardiomegaly and pulmonary vascular congestion persists. Possible trace right pleural eff usion.
[2023-10-17 12:45] LABS: AST 4016 U/L (14-36)
[2023-10-17] MEDS ORDERED: MORPHINE SULFATE 2 MG/ML SYRINGE IV PRN (13:08)
[2023-10-17] MEDS ORDERED: MORPHINE SULFATE 4 MG/ML SYRINGE IV PRN (13:08)
[2023-10-17] MEDS ORDERED: ATROPINE OPHTH SOLN 1% 5ML BTL SUBLINGUAL PRN (13:08)
[2023-10-17] MEDS ORDERED: SCOPOLAMINE 1 MG/72 HR PATCH TRANSDERM SCH (13:15)
[2023-10-17 13:20] LABS: Calcium 5.6 mg/dL (8.4-10.2)
[2023-10-17 15:18] VITALS: PULSE 66
[2023-10-17] MEDS ORDERED: AMIODARONE 450 MG in DEXTROSE 5% IN WATER 250 ML IV SCH (17:00)
--- NOTE | 2023-10-17 19:49 | OP ---
OPERATIVE REPORT DATE OF SERVICE : PROCEDURE: Right radial artery line. PREOPERATIVE DIAGNOSIS: Frequent blood draws and blood gas monitoring. POSTOPERATIVE DIAGNOSIS: Frequent blood draws and blood gas monitoring. DESCRIPTION OF PROCEDURE: There was informed consent. The patient's procedure took place in room #260. We used a right radial artery. ARTERIAL LINE PLACEMENT: Indications: Hemodynamic monitoring. A time-out was completed verifying correct patient, procedure, site, positioning, and implant(s) or special equipment if applicable. Prateek's test was performed to ensure adequate perfusion. The patient's right/left wrist or right/left groin was prepped and draped in sterile fashion. 1% Lidocaine was used to anesthetize the area. An 18G Arrow arterial line was introduced into the radial/femoral artery. The catheter was threaded over the guide wire and the needle was removed with appropriate pulsatile blood return. Blood loss was minimal. The catheter was then sutured in place to the skin and a sterile dressing applied. Perfusion to the extremity distal to the point of catheter insertion was checked and found to be adequate. The patient tolerated the procedure well and there were no complications. There was good blood return and waveform. The patient tolerated the procedure well. The catheter was sutured in place and sterile dressing was applied by the nurse. There was no immediate complication. MMODL / IJN: [id number] /
--- NOTE | 2023-10-17 19:54 | OP ---
OPERATIVE REPORT DATE OF SERVICE : PROCEDURE PERFORMED: Left internal jugular triple-lumen catheter. PREOPERATIVE DIAGNOSIS: Administration of fluids and pressors. POSTOPERATIVE DIAGNOSIS: Administration of fluids and pressors. DESCRIPTION OF PROCEDURE: There was informed consent. The patient's procedure took place in room 260 ICU. TRIPLE LUMEN CATHETER PLACEMENT: Indication: Hemodynamic monitoring/Intravenous access. A time-out was completed verifying correct patient, procedure, site, positioning, and implant(s) or special equipment if applicable. The patient was placed in a dependent position appropriate for triple lumen catheter placement based on the vein to be cannulated. The patient's left shoulder or left neck or left groin was prepped and draped in sterile fashion. 1% Lidocaine was used to anesthetize the surrounding skin area. A triple lumen 9F Cordis catheter was introduced into the left subclavian or internal jugular or common femoral vein using Seldinger technique. The catheter was threaded smoothly over the guide wire and appropriate blood return was obtained. Each lumen of the catheter was evacuated of air and flushed with sterile saline. The catheter was then sutured in place to the skin and a sterile dressing applied. Perfusion to the extremity distal to the point of catheter insertion was checked and found to be adequate. I used the left internal jugular vein, we went via the posterior approach. There was good waveform. There was good blood return from all 3 ports. The catheter was sutured in place and sterile dressings were applied by the nurse. There was no immediate complication. The tip of catheter was seen at the junction of superior vena cava and right atrium. MMODL / IJN: [id number] /
--- NOTE | 2023-10-17 19:57 | OP ---
OPERATIVE REPORT DATE OF SERVICE : PROCEDURE PERFORMED: Right femoral art line. PREOPERATIVE DIAGNOSES: Frequent blood draws and blood gas monitoring. POSTOPERATIVE DIAGNOSES: Frequent blood draws and blood gas monitoring. DESCRIPTION OF PROCEDURE: There was informed consent and universal timeout. The patient's procedure took place in room 260. ARTERIAL LINE PLACEMENT: Indications: Hemodynamic monitoring. A time-out was completed verifying correct patient, procedure, site, positioning, and implant(s) or special equipment if applicable. Prateek's test was performed to ensure adequate perfusion. The patient's right wrist or right groin was prepped and draped in sterile fashion. 1% Lidocaine was used to anesthetize the area. An 18G Arrow arterial line was introduced into the radial/femoral artery. The catheter was threaded over the guide wire and the needle was removed with appropriate pulsatile blood return. Blood loss was minimal. The catheter was then sutured in place to the skin and a sterile dressing applied. Perfusion to the extremity distal to the point of catheter insertion was checked and found to be adequate. The patient tolerated the procedure well and there were no complications. We used the right femoral artery. There was good waveform and blood pressure reading. The catheter was sutured in place. A sterile dressing was applied by the nurse. There was no immediate complication. The patient tolerated the procedure well. MMODL / IJN: [id number] /
--- NOTE | 2023-10-18 05:39 | PN ---
PROGRESS NOTE DATE OF SERVICE: 10/17/2023 SUBJECTIVE: This 67-year-old woman admitted with atrial fibrillation with fast ventricular rate, also had elevated troponin as well as COPD. The patient is on amiodarone drip. The patient had taken a turn for the worse, and the patient developed breathing difficulties and required intubation and mechanical ventilation. Chest x-ray done today showed significant cardiomegaly and 2D echo showed ejection fraction about 20-25% with global left ventricular hypokinesis indicating cardiomyopathy also. PAST MEDICAL HISTORY: Reviewed. REVIEW OF SYSTEMS: Could not be done. CURRENT MEDICATIONS: Reviewed. PHYSICAL EXAM: VITAL SIGNS: Pulse is 67, blood pressure 66/46, respirations 18. CHEST: A few scattered rhonchi and crackles. ABDOMEN: Soft. NERVOUS SYSTEM: Diffusely weak. LABORATORY DATA: Reviewed. ASSESSMENT: 1. Atrial fibrillation with fast ventricular rate on presentation. 2. Cardiopulmonary arrest and congestive heart failure acute exacerbation with bilateral leg edema. 3. Significant cardiomyopathy with global hypokinesis, ejection fraction 20-25%. 4. Chronic obstructive pulmonary disease acute exacerbation, present on admission. 5. Troponin 0.058, possible acute hhm-CX-voeernc-elevation myocardial infarction, present on admission. 6. Hypertension. 7. Hyperlipidemia. 8. Multiple complex medical issues. 9. Full code. RECOMMENDATIONS AND DISCUSSION: This 67-year-old woman presented with multiple complex medical issues. We will monitor the patient closely. The patient is on amio drip. The patient is also on pressor support. Closely follow with Pulmonary. The patient had definitely taken a turn for the worse, and we will continue the current medications, and the prognosis is guarded because of the multiple complex medical issues. Further recommendations to follow. MMODL / IJN: [id number] /
--- NOTE | 2023-10-18 23:07 | DS ---
DISCHARGE SUMMARY FINAL DIAGNOSES: Preliminary cause of : COPD. Other diagnoses, 1. Acute hypoxic respiratory failure secondary to COPD acute exacerbation. 2. Atrial fibrillation, fast ventricular rate. 3. Status post cardiopulmonary arrest. 4. CHF acute exacerbation with acute on chronic systolic dysfunction, ejection fraction 20% to 25%. 5. Hypertension. 6. Multiple complex medical issues. HISTORY OF PRESENT ILLNESS: This is a 67-year-old woman with a past medical history of multiple medical problems including severe COPD, was admitted with CHF, atrial fibrillation, and also COPD acute exacerbation, treated in conjunction with Pulmonary and Cardiology; however, the patient had a cardiac arrest and was resuscitated, monitored in ICU. The patient needed maximal pressor support. The patient had recurrent cardiac arrests with PEA and the family decided that the patient be in comfort measures and the patient succumbed to her above-mentioned multiple complex medical issues. The prognosis was extremely guarded throughout the hospital stay. Please refer to the multiple progress notes, history and physical, and consultation and staff notes for further information. MMODL / IJN: [id number] / CLARK
--- NOTE | 2023-10-20 10:43 | CDI ---
Documentation Clarification Form Date: 10/20/2023 10:35:53 AM From: Jaqueline Beverly Phone: Admit Date: 10/15/2023 03:30:00 PM Patient Name: Lindsay Dunn Visit Number: [id number] Discharge Date: 10/17/2023 04:20:00 PM ATTENTION: The Clinical Documentation Specialists (CDI) and [facility] Coding Staff appreciate your assistance in clarifying documentation. Please respond to the clarification below the line at the bottom and electronically sign. The CDI & [facility] Coding staff will review the response and follow-up if needed. Please note: Queries are made part of the Legal Health Record. If you have any questions, please contact the author of this message via ITS. Dr. Radha Barahona Acute sxm-MA-tznujru-elevationmyocardial infarction is documented as POA per Progress Note 10/16. Additional clarification regarding the type of MS is requested. History/Risk Factors: 67yo F, ACHRF, AECOPD, A Fib, ACSHF, HTN, multiple complex medical issues, former smoker, PEA Clinical Indicators: Troponin: 0.050- 0.059 EKG Results: EKG did showA-fibwith RVR and she was started on diltiazem drip. Treatment: Pt experienced PEA, made DNR & palliative care. Patient Please clarify the type of MS, if known: [ ] NSTEMI (type 1) [ ] Type II MS due to (please specify etiology) [ ] Unable to determine [ ] Other Condition, please specify (Template Last Revised: June 2020) NSTEMI (type 1) MTDD
--- NOTE | 2023-10-25 12:52 | CDI ---
Documentation Clarification Form Date: 10/25/2023 10:20:20 AM From: Winter Izaguirre RN, CCDS Phone: [phone] Admit Date: 10/15/2023 03:30:00 PM Patient Name: Lindsay Dunn Visit Number: [id number] Discharge Date: 10/17/2023 04:20:00 PM ATTENTION: The Clinical Documentation Specialists (CDI) and [facility] Coding Staff appreciate your assistance in clarifying documentation. Please respond to the clarification below the line at the bottom and electronically sign. The CDI & [facility] Coding staff will review the response and follow-up if needed. Please note: Queries are made part of the Legal Health Record. If you have any questions, please contact the author of this message via ITS. Dr. Erich German The patient was profoundly hypotensive and treated with Vasopressors. Based on this information and the findings below, is there an additional diagnosis that is clinically appropriate for this patient? Patient history/risk factors: fibromyalgia, hypertension, hyperlipidemia, CHF, COPD on home oxygen and atrial fibrillation. Presented with increased shortness of breath and chest discomfort. Admitted with CHF, COPD and acute respiratory failure requiring intubation and mechanical ventilation. Clinical Indicators: 10/15 Cardiology: "EKG did show A-fib with RVR and she was started on Diltiazem drip." 10/16 IM: "Troponin 0.058, possible acute ymx-WZ-bwmomqu-elevation myocardial infarction, present on admission. 10/16 Pulmonary: "Code blue was called on the patient. She had developed labored breathing and there was suspicion for opioid toxicity in the setting of acute kidney injury. She developed PEA and received brief CPR and was given an amp of Epinephrine. She was subsequently intubated and transferred to the ICU. She is profoundly hypotensive. She is on maximum dose of Norepinephrine. Vasopressin has been initiated. She is receiving IV fluids. 10/16 BP's: 45/29-32/20-130/84-68/48 Treatment: IV Levophed titrated on 10/16; IV Vasopressin titrated on 10/16; 1L 0.9 NS IV bolus x1 on 10/16 Is there an additional diagnosis that is clinically appropriate for this patient? [ ] Hypovolemic shock [ X] Cardiogenic shock [ ] No additional diagnosis [ ] Unable to determine [ ] Other, please specify MTDD
== END 2023-10-17 16:20 | disposition expired | DRG 208 ==
LOC: EC 13:30 → 3SCARD 15:30 → 2SICU 10-17 06:12
PROVIDERS: ADMIT Internal Medicine; ATTEND Internal Medicine
PROC: 5A1935Z Respiratory Ventilation, Less than 24 Consecutive Hours (ICD-10-PCS; principal; 2023-10-17)
PROC: 03HY32Z Insertion of Monitoring Device into Upper Artery, Percutaneous Approach (ICD-10-PCS; 2023-10-17)
PROC: 4A133B1 Monitoring of Arterial Pressure, Peripheral, Percutaneous Approach (ICD-10-PCS; 2023-10-17)
PROC: 4A133J1 Monitoring of Arterial Pulse, Peripheral, Percutaneous Approach (ICD-10-PCS; 2023-10-17)
PROC: 02HV33Z Insertion of Infusion Device into Superior Vena Cava, Percutaneous Approach (ICD-10-PCS; 2023-10-17)
PROC: 3E043XZ Introduction of Vasopressor into Central Vein, Percutaneous Approach (ICD-10-PCS; 2023-10-17)
PROC: 04HY32Z Insertion of Monitoring Device into Lower Artery, Percutaneous Approach (ICD-10-PCS; 2023-10-17)
PROC: 4A133B1 Monitoring of Arterial Pressure, Peripheral, Percutaneous Approach (ICD-10-PCS; 2023-10-17)
PROC: 4A133J1 Monitoring of Arterial Pulse, Peripheral, Percutaneous Approach (ICD-10-PCS; 2023-10-17)
PROC: 5A12012 Performance of Cardiac Output, Single, Manual (ICD-10-PCS; 2023-10-17)
PROC: 0BH18EZ Insertion of Endotracheal Airway into Trachea, Via Natural or Artificial Opening Endoscopic (ICD-10-PCS; 2023-10-17)
DX: J44.1 Chronic obstructive pulmonary disease with (acute) exacerbation (principal); I50.23 Acute on chronic systolic (congestive) heart failure; J96.21 Acute and chronic respiratory failure with hypoxia; I21.4 Non-ST elevation (NSTEMI) myocardial infarction; N17.9 Acute kidney failure, unspecified; I42.9 Cardiomyopathy, unspecified; I11.0 Hypertensive heart disease with heart failure; I48.91 Unspecified atrial fibrillation; I46.2 Cardiac arrest due to underlying cardiac condition; Z51.5 Encounter for palliative care; Z66 Do not resuscitate; Z99.81 Dependence on supplemental oxygen; I95.9 Hypotension, unspecified; I08.1 Rheumatic disorders of both mitral and tricuspid valves; E05.90 Thyrotoxicosis, unspecified without thyrotoxic crisis or storm; F32.A Depression, unspecified; E78.5 Hyperlipidemia, unspecified; F41.0 Panic disorder [episodic paroxysmal anxiety]; M79.7 Fibromyalgia; E16.2 Hypoglycemia, unspecified; R57.0 Cardiogenic shock; R68.0 Hypothermia, not associated with low environmental temperature; T40.605A Adverse effect of unspecified narcotics, initial encounter; I45.10 Unspecified right bundle-branch block; Z86.73 Personal history of transient ischemic attack (TIA), and cerebral infarction without residual deficits; Z79.01 Long term (current) use of anticoagulants; Z87.891 Personal history of nicotine dependence; Z79.899 Other long term (current) drug therapy; Z98.1 Arthrodesis status
CPT/HCPCS: 36415; 71045; 71046; 80048; 80053; 82533; 82805; 83036; 83605; 83735; 83880; 84439; 84443; 84484; 85025; 85610; 85730; 93005; 93306; 94002; 94640; 96365; 96366; 96375; 99291